=== PATIENT | female | born 1980 | race Caucasian/White ===

== ENCOUNTER → 2018-02-09 08:52 | Outpatient (BNVA) | payer MEDICARE, MEDICAID, SELFPAY | PROVIDERS: PCP Family Medicine; Visit Provider Psychiatry & Neurology Neurology | DX: G35 Multiple sclerosis (principal); G82.20 Paraplegia, unspecified | CPT/HCPCS: 99214 ==

== ENCOUNTER 2018-02-11 09:46 | Outpatient (REF) | payer MEDICARE, MEDICAID, SELFPAY ==
[2018-02-11 10:36] LABS: CREATININE 0.46 mg/dL (0.55-1.02)
== END 2018-02-11 10:06 ==
LOC: LBN 09:46
PROVIDERS: PCP Family Medicine; Visit Provider Family Medicine
DX: E11.9 Type 2 diabetes mellitus without complications (principal); G35 Multiple sclerosis; Z13.89 Encounter for screening for other disorder
CPT/HCPCS: 82565

== ENCOUNTER 2018-02-12 01:16 | Outpatient (CLI) | payer MEDICARE, MEDICAID, SELFPAY ==
[2018-02-12] MEDS: Omnipaque 350 MG/ML 100 ML BTL IJ (13:43)
--- NOTE | 2018-02-12 13:48 | DI.CT_ITS ---
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 Images were performed from above the sella through the level of the aortic arch after IV contrast. The previously noted right-sided neck abscess is no longer seen. Mild scarring is seen at the right submandibular region. Resection of the right side of the tongue is again noted. No recurrent mass is visible. No adenopathy is seen. The parotid, thyroid and left submandibular glands are unremarkable. The right submandibular gland appears to have been resected. No nodules are seen at the lung apices. Degenerative changes are noted in the spine. The sinuses appear clear. The orbits are unremarkable. IMPRESSION: Status post resection of right tongue mass. Postsurgical changes in the right side of the neck. No visible recurrent tumor or adenopathy.
== END 2018-02-12 01:36 ==
PROVIDERS: PCP Family Medicine; Visit Provider Otolaryngology
DX: Z85.810 Personal history of malignant neoplasm of tongue (principal); Z98.890 Other specified postprocedural states
CPT/HCPCS: 70491; J3490

== ENCOUNTER 2018-02-18 00:38 | Outpatient (CLI) | payer MEDICARE, MEDICAID, SELFPAY ==
--- NOTE | 2018-02-18 08:48 | DI.US_ITS ---
SYMPTOM/DIAGNOSIS: RT SUBMANDIBULAR ADENOPATHY, H/O TONGUE CA, MILD CELLULITIS , NEG CT, ? ABSCESS VS LYMPHADENOPATHY SOFT TISSUE NECK ULTRASOUND: Comparison is made with CT from 02/12/18. Sonographic evaluation of the right neck was performed. No cystic or solid masses are seen. No findings to suggest an abscess or adenopathy is appreciated. IMPRESSION: Negative ultrasound of the right neck.
[2018-02-18 10:15] LABS: Abs Immature Grans 0.01 k/cumm (0.0-0.09); Absolute Basophil Count 0.02 k/cumm (0.0-0.2); Absolute Eosinophil Count 0.11 k/cumm (0.0-0.7); Absolute Lymphocyte Count 0.51 k/cumm (1.2-3.4); Absolute Monocyte Count 0.24 k/cumm (0.11-0.7); Absolute Neutrophil Count 3.37 k/cumm (1.2-6.7); Basophils % 0.5; Eosinophils % 2.6; HCT 40.5 % (36.0-46.0); HGB 12.9 g/dL (12.0-15.5); Immature Grans % 0.2; Mean Corp. HGB Concentration 31.9 g/dL (32.0-36.0); Mean Corpuscular Hemoglobin 30.1 pg (27.0-33.0); Mean Corpuscular Volume 94.6 fL (80-95); Mean Platelet Volume 11.3 fL (8.0-11.0); Monocytes % 5.6; Neutrophils % 79.1; Platelet Count 189 x1000/uL (130-400); RBC 4.28 m/cumm (4.00-5.20); RBC Distribution Width 14.3 % (11.7-14.6); White Blood Cell Count 4.26 k/cumm (4.4-10.8)
== END 2018-02-18 00:58 ==
PROVIDERS: Nurse Practitioner Family; PCP Family Medicine; Visit Provider Family Medicine
DX: R59.0 Localized enlarged lymph nodes (principal); Z85.810 Personal history of malignant neoplasm of tongue; L03.90 Cellulitis, unspecified
CPT/HCPCS: 36415; 76536; 85025

== ENCOUNTER 2018-04-08 08:44 | Outpatient (REF) | payer MEDICARE, MEDICAID, SELFPAY ==
[2018-04-08 09:40] LABS: Hemoglobin A1C 5.2 % (4.5-6.2)
== END 2018-04-08 09:04 ==
LOC: LBN 08:44
PROVIDERS: PCP Family Medicine; Visit Provider Family Medicine
DX: E11.9 Type 2 diabetes mellitus without complications (principal)
CPT/HCPCS: 83036

== ENCOUNTER 2018-05-21 11:55 | Outpatient (REF) | payer MEDICARE, MEDICAID, SELFPAY ==
[2018-05-21 13:04] LABS: Absolute Basophil Count 0.01 k/cumm (0.0-0.2); Absolute Eosinophil Count 0.15 k/cumm (0.0-0.7); Absolute Lymphocyte Count 0.54 k/cumm (1.2-3.4); Absolute Monocyte Count 0.18 k/cumm (0.11-0.7); Absolute Neutrophil Count 2.57 k/cumm (1.2-6.7); Basophils % 0.3; Eosinophils % 4.3; HCT 37.3 % (36.0-46.0); Lymphocytes % 15.7; Mean Corp. HGB Concentration 32.2 g/dL (32.0-36.0); Mean Corpuscular Hemoglobin 30.5 pg (27.0-33.0); Mean Corpuscular Volume 94.7 fL (80-95); Mean Platelet Volume 12.3 fL (8.0-11.0); Monocytes % 5.2; Neutrophils % 74.5; Platelet Count 171 x1000/uL (130-400); RBC 3.94 m/cumm (4.00-5.20); RBC Distribution Width 14.3 % (11.7-14.6); White Blood Cell Count 3.45 k/cumm (4.4-10.8)
[2018-05-21 13:17] LABS: Iron 37 ug/dL (50-175); Total Iron Binding Capacity 185 ug/dL (250-450); Transferrin Sat 20 % (15-50)
[2018-05-21 13:44] LABS: Anion Gap 9.6 mmol/L (3-11); BUN 14 mg/dL (7-18); CO2 27.4 mmol/L (21.0-32.0); CREATININE 0.64 mg/dL (0.55-1.02); Calcium 9.1 mg/dL (8.5-10.1); Chloride 104 mmol/L (98-107); Ferritin 221 ng/mL (8-388); Folate 12.7 ng/mL (8.6-20.0); Glucose 140 mg/dL (70-100); Potassium 3.6 mmol/L (3.5-5.1); Sodium 141 mmol/L (136-145); TSH 1.11 uIU/mL (0.358-3.74); Vitamin B12 459 pg/mL (193-986)
[2018-05-31 11:14] LABS: Niacin (Vitamin B3), Plasma 2.38 ug/mL
== END 2018-05-21 12:15 ==
LOC: LBN 11:55
PROVIDERS: PCP Family Medicine; Visit Provider Family Medicine
DX: C02.9 Malignant neoplasm of tongue, unspecified (principal); D49.2 Neoplasm of unspecified behavior of bone, soft tissue, and skin; G35 Multiple sclerosis; E11.9 Type 2 diabetes mellitus without complications
CPT/HCPCS: 80048; 84591; 82607; 82728; 82746; 83540; 83550; 84443; 85025

== ENCOUNTER → 2018-06-30 12:49 | Outpatient (BNVA) | payer MEDICARE, MEDICAID, SELFPAY | PROVIDERS: PCP Family Medicine; Visit Provider Nurse Practitioner Gerontology | DX: N31.9 Neuromuscular dysfunction of bladder, unspecified (principal); G35 Multiple sclerosis; E11.9 Type 2 diabetes mellitus without complications | CPT/HCPCS: 99213 ==

== ENCOUNTER 2018-07-17 20:48 | Outpatient (REF) | payer MEDICARE, MEDICAID, SELFPAY | END 2018-07-17 21:08 | LOC: LBN 20:48 | PROVIDERS: PCP Family Medicine; Visit Provider Family Medicine | DX: R05 Cough (principal) | CPT/HCPCS: 87449 ==

== ENCOUNTER 2018-07-18 13:32 | Inpatient (IN) | payer MEDICARE, MEDICAID, SELFPAY ==
[2018-07-18] VITALS (63 sets, daily range): BP systolic 89–129; BP diastolic 46–76; PULSE 90–148; RESP 11–35; TEMP 36.9–38.6; O2SAT 91–96
--- NOTE | 2018-07-18 13:48 | DI.RAD_ITS ---
SYMPTOMS/DIAGNOSIS: FEVER, COUGH CHEST X-RAY, FRONTAL AND LATERAL VIEWS: Comparison is 11/24/17. The heart size and pulmonary vasculature are within normal limits. No infiltrates, effusions or pneumothoraces are identified. IMPRESSION: No acute pulmonary process.
--- NOTE | 2018-07-18 13:51 | ED.GENADUL_ITS ---
Discharge Plan Disposition Patient Disposition: [facility] INPATIENT Condition: Improving Discharge Details Chief Complaint: Fever Clinical Impression: Urinary tract infection Reason For Visit: [place] Primary Care Provider: Helen Leung ED Provider: Scottie Glass Home Meds and New Rx's Prescriptions: No Action Depo-Provera 400 MG/1 ML suspension 400 mg IM DIRECTED RF: 0 Female Catheter 1 EACH misc 1 ea Miscellaneous DAILY Qty: 30 RF: 0 baclofen 20 MG tablet 30 mg GT TID RF: 0 magnesium hydroxide [Milk of Magnesia] 400 MG/5 ML suspension 30 ml PO PRN RF: 0 Fleet Enema 133 ML enema 133 ml RC PRN PRN (Reason: Constipation) RF: 0 Kathy Protect 57 GM cream 57 gm Topical DAILY PRNRF: 0 albuterol sulfate 2.5 MG/3 ML solution for nebulization 2.5 mg UPD Q2H PRN PRNRF: 0 nystatin 15 GM powder Topical BID PRN PRNRF: 0 acetaminophen [Tylenol] 325 MG tablet 650 mg PO Q6H PRN PRNRF: 0 Lactobacillus acidophilus [Acidophilus] 1 EACH capsule 1 cap GT DAILY RF: 0 escitalopram oxalate 20 MG tablet 20 mg GT DAILY RF: 0 bisacodyl 10 MG suppository 10 mg NE DAILY PRN PRN (Reason: Constipation) RF: 0 Eliquis 2.5 MG tablet 1 tab GT BID RF: 0 clonazepam [Klonopin] 1 MG tablet 1 mg GT QPM RF: 0 polyethylene glycol 3350 17 GM powder in packet 17 gm GT DAILY RF: 0 Lyrica 75 MG capsule 75 mg GT BID RF: 0 cholestyramine (with sugar) [Questran] 4 GM powder in packet 1 packet GT Q8H PRN PRN (Reason: loose stools) RF: 0 ondansetron HCl 4 MG tablet 1 tab GT Q8H PRN (Reason: Nausea) RF: 0 acetaminophen 650 MG/20.3 ML solution 1,000 mg JT Q8H PRNRF: 0 diphenhydramine HCl 25 MG/10 ML elixir 25 mg PO HS PRN PRNRF: 0 Phenaseptic 180 ML aerosol,spray 2 spry Mucous Membrane QID PRN PRNQty: 1 RF: 0 levetiracetam 100 MG/ML solution 500 mg PO BID RF: 0 whxjohzcf-ucfedowhf-Se-mag-sim 119 ML mouthwash 10 ml PO Q6H PRN PRNRF: 0 cholecalciferol (vitamin D3) 400 UNIT/ML drops 800 unit PO DAILY RF: 0 Glucagon Emergency Kit (human) 1 MG kit 1 mg IJ Q15MIN PRNRF: 0 nystatin 500,000 UNITS/5 ML suspension 100,000 units PO QID RF: 0 dextrose [Glucose Gel] 38 GM gel 38 gm PO DIRECTED PRNRF: 0 morphine 10 MG/5 ML solution 5 mg PO Q6H PRN PRNRF: 0 lidocaine HCl [Lidocaine Viscous] 15 ML solution 10 ml PO TID PRNRF: 0 Jevity 1.5 Thomas 1,000 ML liquid 1,000 ml GT DIRECTED RF: 0 docusate sodium 100 MG/10 ML liquid 100 mg PO DAILY Qty: 1 RF: 0 Medical Decision Making Bedbound a 37-year-old female who is bedbound with severe MS, who lives at local rehabilitation facility was noted to have a cough and fever yesterday that worsened today with a temperature of 105. She is reported to have a negative flu swab yesterday. She was given Tylenol and referred to the ED. She complains primarily of cough. She is febrile with temperature 38.6, tachycardic with a pulse of 148, normotensive with a pressure 129/71. She meets criteria for SIRS, and patient given antipyretics and fluids, referred for laboratory testing including lactic acid, blood cultures, urine, as well as chest x-ray and influenza screening. Patient has not elevated lactic acid of 2.0. Her urinalysis is concentrated with positive nitrates and leukoesterase. CBC is reassuring with a white count of 5, hematocrit 39, BUN is 10 creatinine 0.7. CXR - no acute findings. Influenza is negative. Patient has a presentation consistent with acute urinary tract infection. Her pulse is improving from 138 to low 100's. She will benefit from admission for parenteral antibiotics. Lab Data Lab results reviewed: Yes I reviewed the patient's lab results. Laboratory Results - last 24 hr 07/18/18 07/18/18 07/18/18 13:45 13:55 13:55 WBC RBC Hgb Hct MCV MCH MCHC RDW Plt Count MPV Immature Gran % Neutrophils % Lymphocytes % Monocytes % Eosinophils % Basophils % Absolute Neutrophils Absolute Lymphocytes Absolute Monocytes Absolute Eosinophils Absolute Basophils PT INR Sodium 139 Potassium 3.6 Chloride 102 Carbon Dioxide 26.9 Anion Gap 10.1 BUN 10 Creatinine 0.70 Estimated GFR/1.73 m2 >= 60.00 Glucose 122 H Lactate 2.0 H Calcium 9.1 Total Bilirubin 0.3 AST 20 ALT 31 Alkaline Phosphatase 134 H Total Protein 8.5 H Albumin 3.0 L Urine Color Yellow Urine Clarity Cloudy Urine pH 5.5 Ur Specific [place] >= 1.030 H Urine Protein 100 H Urine Ketones Negative Urine Blood Small H Urine Nitrite Positive H Urine Bilirubin Negative Urine Urobilinogen 0.2 Ur Leukocyte Esterase Small H Urine RBC Not Applicable Urine WBC >50 Ur Epithelial Cells Not Applicable Urine Crystals Not Applicable Urine Bacteria Moderate Urine Mucus Not Applicable Ur Culture Indicated? Yes Urine Glucose Negative 07/18/18 07/18/18 13:55 13:55 WBC 5.77 RBC 4.17 Hgb 12.5 Hct 39.0 MCV 93.5 MCH 30.0 MCHC 32.1 RDW 15.6 H Plt Count 198 MPV 11.4 H Immature Gran % 0.2 Neutrophils % 89.7 Lymphocytes % 4.9 Monocytes % 3.8 Eosinophils % 1.2 Basophils % 0.2 Absolute Neutrophils 5.18 Absolute Lymphocytes 0.28 L Absolute Monocytes 0.22 Absolute Eosinophils 0.07 Absolute Basophils 0.01 PT 11.3 H INR 1.1 Sodium Potassium Chloride Carbon Dioxide Anion Gap BUN Creatinine Estimated GFR/1.73 m2 Glucose Lactate Calcium Total Bilirubin AST ALT Alkaline Phosphatase Total Protein Albumin Urine Color Urine Clarity Urine pH Ur Specific [place] Urine Protein Urine Ketones Urine Blood Urine Nitrite Urine Bilirubin Urine Urobilinogen Ur Leukocyte Esterase Urine RBC Urine WBC Ur Epithelial Cells Urine Crystals Urine Bacteria Urine Mucus Ur Culture Indicated? Urine Glucose ECG Data Attestation: I personally reviewed and interpreted this ECG (s) as follows: Interpretation: Regular sinus tachycardia with a rate of 120. There is no ST segment elevation, the QRS is narrow. HPI General Mode of arrival: EMS . Date/Time Provider Initiated Documentation: 07/18/18 13:40 . Limitations to Documentation: no limitations . Information obtained by: patient, EMS and RN notes reviewed . History of Present Illness 37 year old F presents to the emergency department with the chief complaint of Fever and cough, day 2, report of negative influenza yesterday, described as moderate, Quality is described as dull, and is localized to the chest. Patient reports no radiation. Patient started experiencing this day(s) and it has been intermittent. No relieving factors improve symptom(s), No exacerbating factors reported . Patient notes fever/chills. Patient did receive the following treatments prior to arrival, other (Tylenol) Related Data Home Medications Medication Instructions Recorded Confirmed Depo-Provera 400 mg IM DIRECTED vial 08/19/12 06/30/18 Female Catheter #30 ea 01/25/13 06/30/18 albuterol sulfate 2.5 mg UPD Q2H PRN PRN vial 03/19/17 07/18/18 nystatin 0 gm TOPICAL BID PRN PRN jar 03/19/17 06/30/18 Kathy Protect 57 gm TOPICAL DAILY PRN 04/20/17 06/30/18 Fleet Enema 133 ml RC PRN PRN enema 04/20/17 06/30/18 baclofen 30 mg GT TID tab-cap 04/20/17 06/30/18 magnesium hydroxide [Milk of 30 ml PO PRN ml 04/20/17 06/30/18 Magnesia] Eliquis 1 tab GT BID 11/23/17 06/30/18 Lactobacillus acidophilus 1 cap GT DAILY 11/23/17 06/30/18 [Acidophilus] Lyrica 75 mg GT BID 11/23/17 06/30/18 acetaminophen [Tylenol] 650 mg PO Q6H PRN PRN 11/23/17 06/30/18 bisacodyl 10 mg NE DAILY PRN PRN 11/23/17 06/30/18 cholestyramine (with sugar) 1 packet GT Q8H PRN PRN 11/23/17 06/30/18 [Questran] clonazepam [Klonopin] 1 mg GT QPM 11/23/17 06/30/18 escitalopram oxalate 20 mg GT DAILY 11/23/17 06/30/18 ondansetron HCl 1 tab GT Q8H PRN 11/23/17 06/30/18 polyethylene glycol 3350 17 gm GT DAILY 11/23/17 06/30/18 acetaminophen 1,000 mg JT Q8H PRN cup 11/30/17 06/30/18 Phenaseptic 2 spry MUCOUS MEMBRANE QID PRN PRN 12/01/17 06/30/18 #1 btl cholecalciferol (vitamin D3) 800 unit PO DAILY btl 12/01/17 06/30/18 diphenhydramine HCl 25 mg PO HS PRN PRN btl 12/01/17 06/30/18 levetiracetam 500 mg PO BID ml 12/01/17 06/30/18 mmfrtyite-cbtkibcam-Ur-mag-sim 10 ml PO Q6H PRN PRN btl 12/01/17 06/30/18 Glucagon Emergency Kit (human) 1 mg IJ Q15MIN PRN 12/27/17 06/30/18 Jevity 1.5 Thomas 1,000 ml GT DIRECTED 12/27/17 06/30/18 dextrose [Glucose Gel] 38 gm PO DIRECTED PRN 12/27/17 06/30/18 docusate sodium 100 mg PO DAILY #1 btl 12/27/17 06/30/18 lidocaine HCl [Lidocaine Viscous] 10 ml PO TID PRN 12/27/17 06/30/18 morphine 5 mg PO Q6H PRN PRN 12/27/17 06/30/18 nystatin 100,000 units PO QID 12/27/17 06/30/18 Previous Rx's Medication Instructions Recorded albuterol sulfate 2.5 mg UPD Q2H PRN PRN vial 03/19/17 nystatin 0 gm TOPICAL BID PRN PRN jar 03/19/17 acetaminophen 1,000 mg JT Q8H PRN cup 11/30/17 Phenaseptic 2 spry MUCOUS MEMBRANE QID PRN PRN 12/01/17 #1 btl cholecalciferol (vitamin D3) 800 unit PO DAILY btl 12/01/17 diphenhydramine HCl 25 mg PO HS PRN PRN btl 12/01/17 levetiracetam 500 mg PO BID ml 12/01/17 ewfhgmsvl-xofeapeww-Rq-mag-sim 10 ml PO Q6H PRN PRN btl 12/01/17 docusate sodium 100 mg PO DAILY #1 btl 12/27/17 Allergies Allergy/AdvReac Type Severity Reaction Status Date / Time amoxicillin Allergy Severe Hives Unverified 07/18/18 16:43 venom-honey bee Allergy Severe Anaphylaxsi Unverified 02/10/19 16:43 s cod liver oil Allergy Intermediate Verified 07/18/18 16:43 Gadolinium-Containing Allergy Intermediate Hives Unverified 07/18/18 16:43 Contrast Medi lactose Allergy Mild Verified 07/18/18 16:43 cortisone Allergy Unverified 07/18/18 16:43 interferon beta-1b Allergy Unverified 07/18/18 16:43 [From Betaseron] methylprednisolone Allergy Unverified 07/18/18 16:43 [From Solu-Medrol] metformin AdvReac Intermediate RASH, Unverified 07/18/18 16:43 DIARRHEA gabapentin AdvReac Mild LE edema Unverified 07/18/18 16:43 General Stated Complaint: Fever BRENDAN: 2 Review of Systems Review of Systems Patient reports chronic contractures, bedbound, left buttock wound with dressing. 8 systems reviewed and otherwise negative. 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) Hemochromatosis (Chronic) DVT (deep venous thrombosis) (Chronic) MS (multiple sclerosis) Depression Type 2 diabetes mellitus Neurogenic bladder Catatonia (Resolved) Family History Mother Multiple sclerosis Social History housing: [facility] marital status details: currently incarcerated lives independently: No number of children: 2 current occupational status: disabled Smoking and Tabacco status: Never alcohol intake: never substance use type: does not use History History 2 Para Hx # Term Pregnancies 2 Multiple births Hx # Pregnancies Ectopic pregnancies AB induced Hx Number of Living Children AB spontaneous Exam Narrative Exam Narrative: GEN: awake, alert, oriented 3. Pleasant, well groomed, interactive. HEAD: Normocephalic, atraumatic ENT: Mucous membranes dry, oropharynx unremarkable, External ear exam unremarkable EYES: PERRL, EOMI NECK: Full ROM, no BYRON, no menigismus CHEST/RESP: Nontender, clear to auscultation bilateral, no wheeze/rhonchi/rales CARDIOVASCULAR: Regular and tachycardia, no murmur, rub margareth. 2+ Rad pulse bilateral ABDOMEN: Soft, nontender, no mass. +Bowel sounds EXT: Contractures present right greater than left lower extremity. Left buttock with small pressure ulcer that is dressed. Neuro: Grossly normal neurologic exam, conversant, interactive. Psych: Speech fluent, thoughts congruent, affect normal Course Vital Signs Temperature 38.6 C H 07/18/18 13:39 Pulse 148 H 07/18/18 13:39 Respiratory Rate 28 H 07/18/18 13:39 Blood Pressure 129/71 07/18/18 13:39 Pulse Oximetry 92 L 07/18/18 13:39 Temperature 38.6 C H 07/18/18 13:39 Temperature Source Oral 07/18/18 13:39 Pulse 148 H 07/18/18 13:39 Respiratory Rate 28 H 07/18/18 13:39 Blood Pressure 129/71 07/18/18 13:39 Blood Pressure Position Supine 07/18/18 13:39 Pulse Oximetry 92 L 07/18/18 13:39 Oxygen Delivery Method Room Air 07/18/18 13:39 Oxygen Flow Rate 0 07/18/18 13:39
[2018-07-18 14:06] LABS: Abs Immature Grans 0.01 k/cumm (0.0-0.09); Absolute Basophil Count 0.01 k/cumm (0.0-0.2); Absolute Eosinophil Count 0.07 k/cumm (0.0-0.7); Absolute Lymphocyte Count 0.28 k/cumm (1.2-3.4); Absolute Monocyte Count 0.22 k/cumm (0.11-0.7); Absolute Neutrophil Count 5.18 k/cumm (1.2-6.7); Basophils % 0.2; Eosinophils % 1.2; HGB 12.5 g/dL (12.0-15.5); Immature Grans % 0.2; Lymphocytes % 4.9; Mean Corp. HGB Concentration 32.1 g/dL (32.0-36.0); Mean Corpuscular Volume 93.5 fL (80-95); Mean Platelet Volume 11.4 fL (8.0-11.0); Monocytes % 3.8; Neutrophils % 89.7; Platelet Count 198 x1000/uL (130-400); RBC 4.17 m/cumm (4.00-5.20); RBC Distribution Width 15.6 % (11.7-14.6); White Blood Cell Count 5.77 k/cumm (4.4-10.8)
[2018-07-18] MEDS: Lactated Ringers 1,000 ML 1000 ML IV ×2 (14:06→14:56)
[2018-07-18] MEDS: Ibuprofen 600 MG TAB PO (14:07)
[2018-07-18 14:16] LABS: INR 1.1 (0.9-1.1); Prothrombin Time 11.3 sec (9.3-11.0)
[2018-07-18 14:19] LABS: ALT 31 U/L (12-78); AST 20 U/L (15-37); Alkaline Phosphatase 134 U/L (46-116); Anion Gap 10.1 mmol/L (3-11); BUN 10 mg/dL (7-18); Bilirubin, Total 0.3 mg/dL (0.2-1.0); CO2 26.9 mmol/L (21.0-32.0); Calcium 9.1 mg/dL (8.5-10.1); Chloride 102 mmol/L (98-107); Glucose 122 mg/dL (70-100); Potassium 3.6 mmol/L (3.5-5.1); Sodium 139 mmol/L (136-145); Total Protein 8.5 g/dL (6.4-8.2)
[2018-07-18 14:26] LABS: Bilirubin Negative (Negative); Blood Small (Negative); Clarity Cloudy; Glucose Negative (Negative); Ketones Negative (Negative); Leukocyte Esterase Small (Negative); Nitrite Positive (Negative); Specific Gravity >= 1.030 (1.005-1.025); Urobilinogen 0.2 EU/dL (Up TO 0.2); pH 5.5 (5-8)
[2018-07-18 14:33] LABS: Bacteria Moderate HPF (Negative); C & S Indicated? Yes; WBC >50 HPF (0-5)
--- NOTE | 2018-07-18 15:04 | DI.VRAD_ITS ---
EXAM: XR Chest, 2 Views EXAM DATE/TIME: 07/18/2018 1:49 PM CLINICAL HISTORY: 37 years old, female; Signs and symptoms; Other: Fever, cough TECHNIQUE: XR of the chest, 2 views. COMPARISON: CR PORTABLE AP CHEST, POST LINE 11/24/2017 12:51 PM FINDINGS: The lung sorenson are clear bilaterally. No focal pulmonary consolidation is present. The cardiac silhouette is within normal limits. The costophrenic angles are sharp. The bony structures appear unremarkable. IMPRESSION: No evidence of acute cardiopulmonary disease. Dictated and Authenticated by: Juan Herrera MD. Ordering:ZURI Rubin MD
[2018-07-18] MEDS: Normal Saline 1,000 ML 150 ML IV (16:30)
[2018-07-18] MEDS: CIPROFLOXACIN 400 MG/200 ML BAG 200 MG IVPB (16:31)
--- NOTE | 2018-07-18 17:46 | W.PM.HP.N ---
Date of service: 07/18/18 Time of Service: 17:46 Assessment and Plan (1) SIRS (systemic inflammatory response syndrome): Start date: 07/18/18 Current visit: Yes Status: Acute Patient had fever up to 105 with change in mental status and tachycardia which responded to IV hydration and IV Cipro oxygen or probable UTI as a source of her symptoms with probable E. coli. Follow-up urine cultures and continue IV Cipro for now. Also got the IV hydration overnight. We will avoid Melendez catheter because of possible UTI. She will have an adult diaper. (2) UTI (urinary tract infection): Start date: 07/15/18 Current visit: Yes Status: Acute Patient urine was positive and urine culture is pending. We will continue IV Cipro until urine culture and sensitivities are complete. Avoid Melendez catheter even though she does have neurogenic bladder. The adult diapers. She is at risk for UTIs with neurogenic bladder and incontinence with the chronic adult diaper. (3) Neurogenic bladder: Current visit: Yes Status: Chronic This is associate with her MS and put her at risk for UTIs with probable poor bladder emptying. He does wear an adult diaper. There is no mention that she self catheterizes or that she is catheterized at the [facility]. We will not place a Melendez catheter unless there is a question of retention which is [facility] UTI. Bladder scans can be done. (4) MS (multiple sclerosis): Current visit: Yes Status: Chronic This is a progressive disease this patient was 13 and makes the patient at high risk for infections with Christy lift to wheelchair for activity and chronic adult diaper with neurogenic bladder by history. Patient has improved overall and function at the [facility] with review of history. She is able to feed herself and eat orally rather than have a PEG tube at this time. History of Present Illness Chief Complaint: UTI with SIRS Narrative: This is a 37-year-old lady who resides at local [facility] with MS which is fairly debilitating and began when she was 13 years old with fixed contractures of her lower extremities and weakness in her upper extremities requiring a Christy lift to go to a wheelchair during the day. She states that she began to have difficulty at the end of last week and Thursday but began to have fever on Thursday being brought to the emergency room on the day of admission with tachycardia, fever up to 105 and some mild confusion though her white count was not elevated. She did have a urine which was positive for infection and was started on IV Cipro in the ED. Her tachycardia responded to IV fluid resuscitation and presently she is on IV normal saline at 150 cc an hour and has blood pressure slightly low with a systolic just below 90. She states that she runs a low blood pressure as her usual. She is more clear presently less confused though she feels she may have lost a day over the weekend. She did have a cough with her symptoms and she had a flu screen which was negative with a chest x-ray unrevealing in the ED. She presently is closer to her baseline though she still feels slightly dry. She wears adult diaper. We will try to avoid a Melendez catheter because of the UTI. She will require IV fluid resuscitation with a soft pressure and continue IV Cipro for now which can be converted to oral if she stabilizes overnight. Review of Systems Review of Systems 13 point review of systems unrevealing for new complaints otherwise stable or negative and as per HPI. She has weakness over her lower body more than upper body and has dysarthria with speech which is chronic. She did have a feeding tube at one time which is been removed with patient able to swallow presently. He also had a tracheostomy at one time when she aspirated with her MS scars over her chest and that was temporary. 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) Hemochromatosis (Chronic) DVT (deep venous thrombosis) (Chronic) MS (multiple sclerosis) (Chronic) Depression Type 2 diabetes mellitus Neurogenic bladder (Chronic) Catatonia (Resolved) Surgical History History of skin graft (Resolved) History of tracheostomy (Resolved) S/P percutaneous endoscopic gastrostomy (PEG) tube placement (Resolved) Family History Mother Multiple sclerosis Social History housing: [facility] marital status details: currently incarcerated lives independently: No number of children: 2 current occupational status: disabled Smoking and Tabacco status: Never alcohol intake: never substance use type: does not use History History 2 Para Hx # Term Pregnancies 2 Multiple births Hx # Pregnancies Ectopic pregnancies AB induced Hx Number of Living Children AB spontaneous Meds Home Medications Medication Instructions Recorded Confirmed Type Depo-Provera 400 mg IM DIRECTED vial 08/19/12 07/18/18 History albuterol sulfate 2.5 mg UPD Q2H PRN PRN vial 03/19/17 07/18/18 Rx baclofen 1.5 tab PO TID tab-cap 04/20/17 07/18/18 History magnesium hydroxide [Milk of 30 ml PO PRN ml 04/20/17 07/18/18 History Magnesia] Lyrica 75 mg PO BID 11/23/17 07/18/18 History acetaminophen [Tylenol] 650 mg PO Q6H PRN PRN 11/23/17 07/18/18 History bisacodyl 10 mg IA DAILY PRN PRN 11/23/17 07/18/18 History cholestyramine (with sugar) 1 packet PO Q8H PRN PRN 11/23/17 07/18/18 History [Questran] clonazepam [Klonopin] 1 mg PO QPM 11/23/17 07/18/18 History escitalopram oxalate 20 mg PO DAILY 11/23/17 07/18/18 History ondansetron HCl 1 tab PO Q8H PRN 11/23/17 07/18/18 History polyethylene glycol 3350 17 gm GT DAILY 11/23/17 07/18/18 History cholecalciferol (vitamin D3) 800 unit PO DAILY btl 12/01/17 07/18/18 Rx Glucagon Emergency Kit (human) 1 mg IJ Q15MIN PRN 12/27/17 07/18/18 History apixaban 2.5 mg PO BID 07/18/18 07/18/18 History biotin 5 ml PO PRN PRN 07/18/18 07/18/18 History miconazole nitrate 1 appful TOPICAL PRN PRN 07/18/18 07/18/18 History Allergies Allergy/AdvReac Type Severity Reaction Status Date / Time amoxicillin Allergy Severe Hives Unverified 07/18/18 17:58 venom-honey bee Allergy Severe Anaphylaxsi Unverified 07/18/18 17:58 s cod liver oil Allergy Intermediate Verified 07/18/18 17:58 Gadolinium-Containing Allergy Intermediate Hives Unverified 07/18/18 17:58 Contrast Medi lactose Allergy Mild Verified 07/18/18 17:58 cortisone Allergy Unverified 07/18/18 17:58 interferon beta-1b Allergy Unverified 07/18/18 17:58 [From Betaseron] methylprednisolone Allergy Unverified 07/18/18 17:58 [From Solu-Medrol] metformin AdvReac Intermediate RASH, Unverified 07/18/18 17:58 DIARRHEA gabapentin AdvReac Mild LE edema Unverified 07/18/18 17:58 Exam Narrative Exam Narrative: General: Patient appears older than stated age and is able to converse with some dysarthria and difficulty being understood at times, she appears to be alert and oriented x3 presently though she did lose a day when she had high fever, she is in no acute distress. She is well-developed and slightly obese with muscle wasting from disuse with her advanced MS. HEENT: Normocephalic, oropharynx with dry oral mucosa and poor dentition with discoloration and some missing teeth, tongue has no gross masses and cannot be protruded past her teeth, eyes with pupils slightly dilated but equal and reactive to light symmetrically, extraocular movement intact, sclera anicteric, slight drooping of left upper eyelid and external ears normal. Neck: Supple without JVD. Lungs: Clear to auscultation and percussion. The upper mid chest has scars from her previous tracheostomy. Heart: Regular rate and rhythm with no murmurs gallops. Breast: Exam deferred. Abdomen: Moderately obese contour, soft and nontender with no palpable hepatosplenomegaly. Sounds positive in all quadrants. Genitalia and rectal exam: Deferred the patient wears adult diaper Extremities: Nonpitting edema lower extremities with the left extremity extended with extension contracture at the ankle and foot and the right extremity with flexion contracture,cyanosis or clubbing. Capillary refill is fair. Upper extremities with normal pulses and no edema. There are scars over the right ventral forearm from her harvest site for her tongue surgery and a large scar over her right thigh from the skin harvest for the skin graft to repair the right forearm Skin: Pale, warm and dry. Neuro: Cranial nerves II through XII grossly intact except for left eye droop and dysarthria which may be more from weakness from her MS, generalized weakness with contractures and no movement of her lower extremities and 3 out of 5 strength in her upper extremities. Psych/mental status: Patient appears to have intact long-term and short-term memory with normal mood but flattened affect with this mostly being secondary to her weakness from MS. Good eye contact with normal variation of affect. Results Labs : 07/18/18 13:55 07/18/18 13:55 Laboratory Results - last 24 hr 07/18/18 07/18/18 07/18/18 13:45 13:55 13:55 WBC RBC Hgb Hct MCV MCH MCHC RDW Plt Count MPV Immature Gran % Neutrophils % Lymphocytes % Monocytes % Eosinophils % Basophils % Absolute Neutrophils Absolute Lymphocytes Absolute Monocytes Absolute Eosinophils Absolute Basophils PT INR Sodium 139 Potassium 3.6 Chloride 102 Carbon Dioxide 26.9 Anion Gap 10.1 BUN 10 Creatinine 0.70 Estimated GFR/1.73 m2 >= 60.00 Glucose 122 H Lactate 2.0 H Calcium 9.1 Total Bilirubin 0.3 AST 20 ALT 31 Alkaline Phosphatase 134 H Total Protein 8.5 H Albumin 3.0 L Urine Color Yellow Urine Clarity Cloudy Urine pH 5.5 Ur Specific [place] >= 1.030 H Urine Protein 100 H Urine Ketones Negative Urine Blood Small H Urine Nitrite Positive H Urine Bilirubin Negative Urine Urobilinogen 0.2 Ur Leukocyte Esterase Small H Urine RBC Not Applicable Urine WBC >50 Ur Epithelial Cells Not Applicable Urine Crystals Not Applicable Urine Bacteria Moderate Urine Mucus Not Applicable Ur Culture Indicated? Yes Urine Glucose Negative 07/18/18 07/18/18 13:55 13:55 WBC 5.77 RBC 4.17 Hgb 12.5 Hct 39.0 MCV 93.5 MCH 30.0 MCHC 32.1 RDW 15.6 H Plt Count 198 MPV 11.4 H Immature Gran % 0.2 Neutrophils % 89.7 Lymphocytes % 4.9 Monocytes % 3.8 Eosinophils % 1.2 Basophils % 0.2 Absolute Neutrophils 5.18 Absolute Lymphocytes 0.28 L Absolute Monocytes 0.22 Absolute Eosinophils 0.07 Absolute Basophils 0.01 PT 11.3 H INR 1.1 Sodium Potassium Chloride Carbon Dioxide Anion Gap BUN Creatinine Estimated GFR/1.73 m2 Glucose Lactate Calcium Total Bilirubin AST ALT Alkaline Phosphatase Total Protein Albumin Urine Color Urine Clarity Urine pH Ur Specific [place] Urine Protein Urine Ketones Urine Blood Urine Nitrite Urine Bilirubin Urine Urobilinogen Ur Leukocyte Esterase Urine RBC Urine WBC Ur Epithelial Cells Urine Crystals Urine Bacteria Urine Mucus Ur Culture Indicated? Urine Glucose Last Vital Signs Temp 37.2 C 07/18/18 16:01 Pulse 98 H 07/18/18 16:16 Resp 16 07/18/18 16:20 BP 114/65 07/18/18 16:16 Pulse Ox 94 L 07/18/18 16:20
[2018-07-18 20:19] LABS: Magnesium 1.6 mg/dL (1.8-2.4)
[2018-07-18] MEDS: Apixaban 2.5 MG TAB PO (20:41)
[2018-07-18] MEDS: clonazePAM 1 MG TAB PO (20:41)
[2018-07-18] MEDS: Baclofen 10 MG TAB 30 MG PO (20:41)
[2018-07-18] MEDS: Pregabalin 25 MG CAP 75 MG PO (22:21)
[2018-07-19] VITALS (15 sets, daily range): BP systolic 82–114; BP diastolic 48–69; PULSE 82–112; RESP 16–110; TEMP 36.9–39.1; O2SAT 92–99
[2018-07-19] MEDS: Normal Saline 1,000 ML 150 ML IV ×2 (00:14→07:28)
[2018-07-19] MEDS: Acetaminophen 325 MG TAB 650 MG PO ×3 (04:43→20:08)
[2018-07-19] MEDS: CIPROFLOXACIN 400 MG/200 ML BAG 200 MG IVPB (06:02)
[2018-07-19] MEDS: Baclofen 10 MG TAB 30 MG PO ×3 (07:25→19:58)
[2018-07-19] MEDS: Apixaban 2.5 MG TAB PO ×2 (07:26→19:59)
[2018-07-19 07:33] LABS: HCT 31.5 % (36.0-46.0); HGB 9.8 g/dL (12.0-15.5); Mean Corp. HGB Concentration 31.1 g/dL (32.0-36.0); Mean Corpuscular Hemoglobin 29.6 pg (27.0-33.0); Mean Corpuscular Volume 95.2 fL (80-95); Mean Platelet Volume 11.5 fL (8.0-11.0); Platelet Count 135 x1000/uL (130-400); RBC 3.31 m/cumm (4.00-5.20); RBC Distribution Width 15.7 % (11.7-14.6); White Blood Cell Count 3.12 k/cumm (4.4-10.8)
[2018-07-19] MEDS: Escitalopram 20 MG TAB PO (07:38)
[2018-07-19 07:51] LABS: ALT 24 U/L (12-78); AST 32 U/L (15-37); Albumin 2.1 g/dL (3.4-5.0); Alkaline Phosphatase 93 U/L (46-116); Anion Gap 6.2 mmol/L (3-11); BUN 7 mg/dL (7-18); Bilirubin, Total 0.3 mg/dL (0.2-1.0); CO2 25.8 mmol/L (21.0-32.0); CREATININE 0.64 mg/dL (0.55-1.02); Calcium 8.1 mg/dL (8.5-10.1); Chloride 108 mmol/L (98-107); Glucose 121 mg/dL (70-100); Potassium 3.4 mmol/L (3.5-5.1); Sodium 140 mmol/L (136-145); Total Protein 6.3 g/dL (6.4-8.2)
--- NOTE | 2018-07-19 07:52 | PDOC.CMIN ---
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 Hemochromatosis (Chronic). DVT (deep venous thrombosis) (Chronic). MS (multiple sclerosis) (Chronic). Depression. Type 2 diabetes mellitus. Neurogenic bladder (Chronic). Catatonia (Resolved). History of skin graft (Resolved). History of tracheostomy (Resolved). S/P percutaneous endoscopic gastrostomy (PEG) tube placement (Resolved) PREVIOUS FUNCTIONAL STATUS/SOCIAL/FAMILY SUPPORTS:: Ethel is a resident of [facility]. She previously resided with her and children locally. Her is currently incarcerated and her children are residing with family members locally. Ethel's Aunt Jacy is a support to her in the community. CURRENT FUNCTIONAL STATUS:: Currently Ethel is lying in bed, pleasant and receptive to discussion. ADVANCE DIRECTIVES:: Guardianship on file - Jacy Townsend is guardian Has patient been provided with information about the portal?: Yes Did the patient sign up for the portal?: No CODE STATUS:: Full Code INSURANCE COVERAGE / FINANCIAL ISSUES:: Medicare, Medicaid CURRENT HOME/COMMUNITY SERVICES/EQUIPMENT:: Currently Ethel has all needs and medical equipment needs met through [facility]. She has a motorized w/c that she uses frequently. PRIMARY CARE PHYSICIAN:: Dr. Leung POTENTIAL DISCHARGE NEEDS:: Return to [facility]. Transport - W/C van vs. ambulance PATIENT/FAMILY EDUCATION NEEDS:: Review DC instructions, any limitations, and ongoing DC planning discussion. Discuss 'Ask Me Three' ANTICIPATED BARRIERS TO DISCHARGE:: None identified at this time. TRANSPORTATION:: Via W/C van vs. ambulance depending on presentation PLAN:: Ethel to return to [facility] once medically cleared. She will transport via [facility] vs. ambulance.
[2018-07-19] MEDS: Pregabalin 25 MG CAP 75 MG PO ×2 (08:22→19:58)
--- NOTE | 2018-07-19 09:52 | INITIAL_ITS ---
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 Hemochromatosis (Chronic). DVT (deep venous thrombosis) (Chronic). MS (multiple sclerosis) (Chronic). Depression. Type 2 diabetes mellitus. Neurogenic bladder (Chronic). Catatonia (Resolved). History of skin graft (Resolved). History of tracheostomy (Resolved). S/P percutaneous endoscopic gastrostomy (PEG) tube placement (Resolved) PREVIOUS FUNCTIONAL STATUS/SOCIAL/FAMILY SUPPORTS:: Ethel is a resident of [facility]. She previously resided with her and children locally. Her is currently incarcerated and her children are residing with family members locally. Ethel's Aunt Jacy is a support to her in the community. CURRENT FUNCTIONAL STATUS:: Currently Ethel is lying in bed, pleasant and receptive to discussion. ADVANCE DIRECTIVES:: Guardianship on file - Jacy Townsend is guardian Has patient been provided with information about the portal?: Yes Did the patient sign up for the portal?: No CODE STATUS:: Full Code INSURANCE COVERAGE / FINANCIAL ISSUES:: Medicare, Medicaid CURRENT HOME/COMMUNITY SERVICES/EQUIPMENT:: Currently Ethel has all needs and medical equipment needs met through [facility]. She has a motorized w/c that she uses frequently. PRIMARY CARE PHYSICIAN:: Dr. Leung POTENTIAL DISCHARGE NEEDS:: Return to [facility]. Transport - W/C van vs. ambulance PATIENT/FAMILY EDUCATION NEEDS:: Review DC instructions, any limitations, and ongoing DC planning discussion. Discuss 'Ask Me Three' ANTICIPATED BARRIERS TO DISCHARGE:: None identified at this time. TRANSPORTATION:: Via W/C van vs. ambulance depending on presentation PLAN:: Ethel to return to [facility] once medically cleared. She will transport via [facility] vs. ambulance.
[2018-07-19] MEDS: MAGNESIUM SULFATE 2 GM/50 ML BAG IVPB (09:59)
[2018-07-19] MEDS: Potassium Chloride 20 MEQ TABCR 40 MEQ PO (10:00)
[2018-07-19] MEDS: MEROPENEM 1 GM in Normal Saline 100 ML IVPB ×2 (12:12→17:49)
[2018-07-19] MEDS: Normal Saline Flush 10 ML SYR IVP (12:13)
[2018-07-19] MEDS: VANCOMYCIN 1,000 MG in Normal Saline 250 ML 100 MG IV (13:02)
--- NOTE | 2018-07-19 14:01 | CHAPLAIN ---
Ethel and I know each other from her previous admissions. Today she seemed happy to talk about her daughters. One is taking classes at [employer] in [place] and the other is a senior at [employer] and will be graduating this spring. 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 Ethel said the girls visit her and talked about them being beautiful inside and out. She shared some stories of when they were babies.
[2018-07-19] MEDS: Potassium Chloride 20 MEQ TABCR PO (15:27)
--- NOTE | 2018-07-19 15:42 | W.PM.PROGNOT ---
Date of Service Date of service: 07/19/18 Time of Service: 15:42 Assessment and Plan (1) Sepsis: Current visit: Yes Status: Acute Based on initial presentation of fevers, tachycardia, altered mental status, and known urinary source with elevated Lactic Acid. Urine Culture growing E.Coli, sensitivities not yet available. Will alter treatment to include treatment of UTI with concurrent sepsis. Cipro discontinued in favor of Vancomycin and Meropenem, narrowed to Meropenem alone with identification of E.Coli on culture. Continue but change to aggressive IVFs given hypotension, with low threshold for ICU transfer. Monitor carefully. Antipyretics on an as needed basis. (2) UTI (urinary tract infection): Current visit: Yes Status: Acute Treatment as above. (3) Neurogenic bladder: Current visit: No Status: Acute Noted, with previously reported recurrent UTIs. Review of culture results with prior evidence of Citrobacter freundii, Klebsiella, and Pseudomonas - all essentially pansensitive. Currently with growth of E. coli as above. Will ensure post void bladder scan. Ms. Salamanca follows with urology chronically. (4) Type 2 diabetes mellitus with hyperglycemia: Current visit: No Status: Acute Unsure of current treatment modality, and whether the patient is simply diet controlled. No evidence of insulin or other agents with review of home med list. Morning blood sugar appears minimally elevated only. Will monitor with twice daily Accu-Cheks, and initiate sliding scale coverage if needed. 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 Patient has a history of former resection and radiation therapy, followed by reconstructive surgery. (6) MS (multiple sclerosis): Current visit: Yes Status: Chronic Noted. (7) DVT (deep venous thrombosis): Current visit: No Status: Chronic History of DVT, currently maintained on prophylactic doses of apixaban. Will ensure PPI therapy as well, especially when acutely ill. Subjective Interval history since last seen: Pleasant but unfortunate 37 year old woman with a prior medical history significant for progressive MS with a neurogenic bladder, and prior recurrent UTIs, admitted from [facility] Emergency Department on 07/18 with a diagnosis of UTI. Ms. Salamanca has a past medical history significant for MS initially diagnosed at 13 years of age. 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 She has a history of DVT in the past as well, currently on prophylactic doses of apixaban. Her other history includes DM, and carcinoma of the tongue s/p resection, radiation, and reconstructive surgery. Patient initially presented to the ED with reported fevers. Her initial bouts of fever had begun 3 or 4 days prior to her admission, and upon evaluation she was found to be febrile here as well. She was also noted to be tachycardic, with a with an altered mental status from baseline, as well as evidence of an elevation in lactate and low blood pressure. Her urinalysis revealed evidence of likely infection. At that time she was referred for admission for further evaluation and treatment. This morning the patient reports improvement in her symptoms overall. However she continues to be febrile and remains hypotensive. No other events reported overnight. Exam Narrative Exam Narrative: General: Patient appears ill but not toxic at time of exam, AAOX3, NAD Neck: Supple CV: Regular, borderline tachycardic, S1S2, No rubs, murmurs, or gallops. Pulmonary: Clear to auscultation bilaterally, no crackles, wheezing, or rhonchi on limited anterior and lateral exam. Abdomen: + Bowel Sounds, soft, nontender, nondistended Vascular: Mild b/l nonpitting lower extremity edema Psych: Normal mood and affect. Objective Objective Clinical Data: Abnormal lab results 07/18/18 07/19/18 07/19/18 Range/Units 20:03 07:12 07:12 WBC 3.12 L D (4.4-10.8) k/cumm RBC 3.31 L (4.00-5.20) m/cumm Hgb 9.8 L D (12.0-15.5) g/dL Hct 31.5 L (36.0-46.0) % MCV 95.2 H (80-95) fL MCHC 31.1 L (32.0-36.0) g/dL RDW 15.7 H (11.7-14.6) % MPV 11.5 H (8.0-11.0) fL Potassium 3.4 L (3.5-5.1) mmol/L Chloride 108 H (98-107) mmol/L Glucose 121 H (70-100) mg/dL Calcium 8.1 L (8.5-10.1) mg/dL Magnesium 1.6 L (1.8-2.4) mg/dL Total Protein 6.3 L (6.4-8.2) g/dL Albumin 2.1 L (3.4-5.0) g/dL Vital Signs Temperature 39 C H 07/19/18 15:27 Temperature Source Tympanic 07/19/18 11:00 Pulse 88 07/19/18 11:00 Pulse Rhythm Regular 07/19/18 07:19 Pulse 101 H 07/18/18 18:10 Respiratory Rate 18 07/19/18 11:00 Respiratory Effort 07/19/18 07:19 Respiratory Depth Normal 07/19/18 07:19 Respiratory Pattern Normal 07/19/18 07:19 Blood Pressure 82/50 L 07/19/18 11:30 Blood Pressure Mean 68 07/18/18 18:45 Blood Pressure Position Supine 07/18/18 13:39 Pulse Oximetry 98 07/19/18 11:00 Oxygen Delivery Method Room Air 07/19/18 11:00 Oxygen Flow Rate 0 07/19/18 11:00 Pain Level 0 07/19/18 11:00 Comment 07/19/18 11:30 Intake & Output 07/18/18 07/19/18 07/19/18 23:59 11:59 23:59 Intake Total 3210 / 3210 1127.5 / 2517.5 1390 / 2517.5 Output Total 0 / 0 Balance 3210 / 3210 1127.5 / 2517.5 1390 / 2517.5 Weight 56.2 kg 56.2 kg Intake: IV 3210 / 3210 1127.5 / 2277.5 1150 / 2277.5 Oral 240 / 240 Output: Post Void Residual 0 / 0 Other: Urine Color Yellow Yellow Urine Appearance Cloudy Sediment Urine Odor Normal Normal Comment inc x 1 pt incontinent of large amounts of urine. Stool Size Small Small Stool Characteristics Soft Soft Formed Brown Voiding Methods Diaper Diaper Diaper Incontinent Incontinent Incontinent # Bowel Movements 1 Laboratory Results WBC 3.12 k/cumm (4.4-10.8) L D 07/19/18 07:12 RBC 3.31 m/cumm (4.00-5.20) L 07/19/18 07:12 Hgb 9.8 g/dL (12.0-15.5) L D 07/19/18 07:12 Hct 31.5 % (36.0-46.0) L 07/19/18 07:12 MCV 95.2 fL (80-95) H 07/19/18 07:12 MCH 29.6 pg (27.0-33.0) 07/19/18 07:12 MCHC 31.1 g/dL (32.0-36.0) L 07/19/18 07:12 RDW 15.7 % (11.7-14.6) H 07/19/18 07:12 Plt Count 135 x1000/uL (130-400) 07/19/18 07:12 MPV 11.5 fL (8.0-11.0) H 07/19/18 07:12 Immature Gran % 0.2 07/18/18 13:55 Neutrophils % 89.7 07/18/18 13:55 Lymphocytes % 4.9 07/18/18 13:55 Monocytes % 3.8 07/18/18 13:55 Eosinophils % 1.2 07/18/18 13:55 Basophils % 0.2 07/18/18 13:55 Absolute Neutrophils 5.18 k/cumm (1.2-6.7) 07/18/18 13:55 Absolute Lymphocytes 0.28 k/cumm (1.2-3.4) L 07/18/18 13:55 Absolute Monocytes 0.22 k/cumm (0.11-0.7) 07/18/18 13:55 Absolute Eosinophils 0.07 k/cumm (0.0-0.7) 07/18/18 13:55 Absolute Basophils 0.01 k/cumm (0.0-0.2) 07/18/18 13:55 PT 11.3 sec (9.3-11.0) H 07/18/18 13:55 INR 1.1 (0.9-1.1) 07/18/18 13:55 Sodium 140 mmol/L (136-145) 07/19/18 07:12 Potassium 3.4 mmol/L (3.5-5.1) L 07/19/18 07:12 Chloride 108 mmol/L (98-107) H 07/19/18 07:12 Carbon Dioxide 25.8 mmol/L (21.0-32.0) 07/19/18 07:12 Anion Gap 6.2 mmol/L (3-11) 07/19/18 07:12 BUN 7 mg/dL (7-18) 07/19/18 07:12 Creatinine 0.64 mg/dL (0.55-1.02) 07/19/18 07:12 Estimated GFR/1.73 m2 >= 60.00 (mL/min/1.73m2) 07/19/18 07:12 Glucose 121 mg/dL (70-100) H 07/19/18 07:12 Lactate 1.0 mmol/l (0.6-1.4) 07/19/18 09:55 Calcium 8.1 mg/dL (8.5-10.1) L 07/19/18 07:12 Magnesium 1.6 mg/dL (1.8-2.4) L 07/18/18 20:03 Total Bilirubin 0.3 mg/dL (0.2-1.0) 07/19/18 07:12 AST 32 U/L (15-37) 07/19/18 07:12 ALT 24 U/L (12-78) 07/19/18 07:12 Alkaline Phosphatase 93 U/L (46-116) 07/19/18 07:12 Total Protein 6.3 g/dL (6.4-8.2) L 07/19/18 07:12 Albumin 2.1 g/dL (3.4-5.0) L 07/19/18 07:12 Urine Color Yellow (Yellow) 07/18/18 13:45 Urine Clarity Cloudy 07/18/18 13:45 Urine pH 5.5 (5-8) 07/18/18 13:45 Ur Specific [place] >= 1.030 (1.005-1.025) H 07/18/18 13:45 Urine Protein 100 mg/dL (Negative) H 07/18/18 13:45 Urine Ketones Negative mg/dL (Negative) 07/18/18 13:45 Urine Blood Small (Negative) H 07/18/18 13:45 Urine Nitrite Positive (Negative) H 07/18/18 13:45 Urine Bilirubin Negative (Negative) 07/18/18 13:45 Urine Urobilinogen 0.2 EU/dL (Up TO 0.2) 07/18/18 13:45 Ur Leukocyte Esterase Small (Negative) H 07/18/18 13:45 Urine RBC Not Applicable 07/18/18 13:45 Urine WBC >50 HPF (0-5) 07/18/18 13:45 Ur Epithelial Cells Not Applicable 07/18/18 13:45 Urine Crystals Not Applicable 07/18/18 13:45 Urine Bacteria Moderate HPF (Negative) 07/18/18 13:45 Urine Mucus Not Applicable 07/18/18 13:45 Ur Culture Indicated? Yes 07/18/18 13:45 Urine Glucose Negative mg/dL (Negative) 07/18/18 13:45 Urine Culture Preliminary 07/19/18-1150 Day 1 Result ISOLATES BELOW ISOLATE 1 COLONY COUNT >100,000 COLONIES/ML ISOLATE 1 APPEARANCE Gram Negative Tam ISOLATE 1 ACTION SUSCEPTIBILITY TO FOLLOW Organism 1 Escherichia coli COLONY COUNT >100,000 COLONIES/ML Esch coli: Pending Objective Narrative Objective Narrative: EXAM: XR Chest, 2 Views EXAM DATE/TIME: 07/18/2018 1:49 PM CLINICAL HISTORY: 37 years old, female; Signs and symptoms; Other: Fever, cough TECHNIQUE: XR of the chest, 2 views. COMPARISON: CR PORTABLE AP CHEST, POST LINE 11/24/2017 12:51 PM FINDINGS: The lung sorenson are clear bilaterally. No focal pulmonary consolidation is present. The cardiac silhouette is within normal limits. The costophrenic angles are sharp. The bony structures appear unremarkable. IMPRESSION: No evidence of acute cardiopulmonary disease.
[2018-07-19] MEDS: Normal Saline 250 ML 500 ML IV (16:40)
[2018-07-19] MEDS: Normal Saline 500 ML IV (16:55)
[2018-07-19] MEDS: Normal Saline 1,000 ML 250 ML IV ×2 (19:21→22:49)
[2018-07-19] MEDS: clonazePAM 1 MG TAB PO (19:59)
[2018-07-20] VITALS (9 sets, daily range): BP systolic 100–113; BP diastolic 64–73; PULSE 86–105; RESP 16–18; TEMP 37.1–38.8; O2SAT 94–98
[2018-07-20] MEDS: MEROPENEM 1 GM in Normal Saline 100 ML IVPB ×2 (01:42→09:30)
[2018-07-20] MEDS: Acetaminophen 325 MG TAB 650 MG PO ×2 (03:22→17:22)
[2018-07-20] MEDS: Normal Saline 1,000 ML 250 ML IV ×4 (03:45→17:25)
[2018-07-20 07:25] LABS: Absolute Basophil Count 0.01 k/cumm (0.0-0.2); Absolute Eosinophil Count 0.12 k/cumm (0.0-0.7); Absolute Lymphocyte Count 0.36 k/cumm (1.2-3.4); Absolute Monocyte Count 0.19 k/cumm (0.11-0.7); Absolute Neutrophil Count 2.37 k/cumm (1.2-6.7); Basophils % 0.3; Eosinophils % 3.9; HCT 31.7 % (36.0-46.0); HGB 9.9 g/dL (12.0-15.5); Lymphocytes % 11.8; Mean Corp. HGB Concentration 31.2 g/dL (32.0-36.0); Mean Corpuscular Hemoglobin 29.5 pg (27.0-33.0); Mean Corpuscular Volume 94.3 fL (80-95); Mean Platelet Volume 11.3 fL (8.0-11.0); Monocytes % 6.2; Neutrophils % 77.8; Platelet Count 146 x1000/uL (130-400); RBC 3.36 m/cumm (4.00-5.20); RBC Distribution Width 15.7 % (11.7-14.6); White Blood Cell Count 3.05 k/cumm (4.4-10.8)
[2018-07-20 07:33] LABS: Anion Gap 6.6 mmol/L (3-11); BUN 4 mg/dL (7-18); CO2 25.4 mmol/L (21.0-32.0); CREATININE 0.58 mg/dL (0.55-1.02); Chloride 110 mmol/L (98-107); Glucose 78 mg/dL (70-100); Magnesium 1.8 mg/dL (1.8-2.4); Sodium 142 mmol/L (136-145)
[2018-07-20] MEDS: Pantoprazole 40 MG VIAL IVP (08:48)
[2018-07-20] MEDS: Escitalopram 20 MG TAB PO (08:49)
[2018-07-20] MEDS: Baclofen 10 MG TAB 30 MG PO ×3 (08:49→19:39)
[2018-07-20] MEDS: Pregabalin 25 MG CAP 75 MG PO ×2 (08:49→19:39)
[2018-07-20] MEDS: Normal Saline Flush 10 ML SYR IVP (08:49)
[2018-07-20] MEDS: Apixaban 2.5 MG TAB PO ×2 (08:49→19:40)
[2018-07-20] MEDS: Magnesium Oxide 400 MG TAB PO (09:39)
--- NOTE | 2018-07-20 10:51 | PHARADMIT ---
Addendum entered by Forrest Pete III 07/21/18 11:45: Pharmacy Note Subjective Patient with debilitating Multipule Sclerosis with UTI (pansensitive) and SIRS. MD notes an patient has worsened since switching for Meropenem to Cipro (spiked fever) Objective Temp: 38.8C overnight, VS-OK SCt, H&H,WBC,Plts-OK INR-1.6 Assessment IV Cipro continues, Scheduled IV APAP & po Ibuprofenprn for fevers. Plan Nurse notes ulcerated area, wound consult requested. Original Note: Admission Pharmacy Clinical Review UTI w/SIRS Code Status Full Code Current Weight 56.2 kg Renally Cleared and Narrow Therapeutic Index Meds Crcl ~75.41 mL/min current meds okay QTc Value / Action Taken QTc 455 BP Control, Fever BP 100/64 afebrile Electrolytes reviewed Cl 110 DVT Prophylaxis pt is on apixaban Opiate Usage / Scheduled Bowel Regimen Ordered no/prn Plt/SCr for Heparin / Enoxaparin plt 146 SCr 0.58 INR for Warfarin n/a H/H stable, WBC/Bands h/h 9.9/31.7 wbc 3.05 Antibiotic appropriateness meropenem Cultures and Sensitivities blood cultures no growth @ 24 hours MRSA negative rapid flu negative urine culture grew E.coli; sensitivities are back Surgical ABX d/c within 24 hr n/a DM control / Insulin Dosing BG 78 none Heart Failure (Check EF%) (OMERO's, B-Block, Diuretics) none IV to PO Switch n/a Home Meds Reviewed -medroxyprogesterone may diminish the therapeutic effects/counteract the anticoagulant effects of apixaban -separate admin of bisacodyl from magnesium hydroxide; vitamin D and medroxyprogesterone from cholestyramine -multiple PAID INTERN depressants: baclofen, clonazepam, pregabalin Home Meds Not Ordered glucagon, medroxyprogesterone, miconazole, ondansetron Comments look for change in abx due to sensitivities
--- NOTE | 2018-07-20 12:36 | PGE_ITS ---
Date of Service Date of service: 07/20/18 Time of Service: 12:33 Assessment and Plan (1) Sepsis: Current visit: Yes Status: Acute Based on initial presentation of fevers, tachycardia, altered mental status, and known urinary source with elevated Lactic Acid. Urine Culture growing a pansensitive E.Coli. Responded to aggressive fluid resuscitation. Will hold Meropenem, and narrow to IV Cipro - currently day #2 total of antibiotic therapy. Will adjust fluids when blood pressure is stable and a bit more improved. (2) UTI (urinary tract infection): Current visit: Yes Status: Acute Treatment as above. (3) Neurogenic bladder: Current visit: No Status: Acute Noted, with previously reported recurrent UTIs. Review of culture results with prior evidence of Citrobacter freundii, Klebsiella, and Pseudomonas, now E.Coli - all essentially pansensitive. Post void bladder scan without residual. Ms. Salamanca follows with urology chronically. (4) Type 2 diabetes mellitus with hyperglycemia: Current visit: No Status: Acute Unsure of current treatment modality, and whether the patient is simply diet controlled. No evidence of insulin or other agents with review of home med list. Morning blood sugar appears minimally elevated only. Will monitor with twice daily Accu-Cheks, and initiate sliding scale coverage if needed. Current blood sugars in the 80-90's. 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 Patient has a history of former resection and radiation therapy, followed by reconstructive surgery. (6) MS (multiple sclerosis): Current visit: Yes Status: Chronic Noted. (7) DVT (deep venous thrombosis): Current visit: No Status: Chronic History of DVT, currently maintained on prophylactic doses of apixaban. Will ensure PPI therapy as well, especially when acutely ill. Subjective Interval history since last seen: Pleasant but unfortunate 37 year old woman with a prior medical history significant for progressive MS with a neurogenic bladder, and prior recurrent UTIs, admitted from [facility] Emergency Department on 07/18 with a diagnosis of UTI. Ms. Salamanca has a past medical history significant for MS initially diagnosed at 13 years of age. 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 She has a history of DVT in the past as well, currently on prophylactic doses of apixaban. Her other history includes DM, and carcinoma of the tongue s/p resection, radiation, and reconstructive surgery. Patient initially presented to the ED with reported fevers. Her initial bouts of fever had begun 3 or 4 days prior to her admission, and upon evaluation she was found to be febrile here as well. She was also noted to be tachycardic, with a with an altered mental status from baseline, as well as evidence of an elevation in lactate and low blood pressure. Her urinalysis revealed evidence of likely infection. At that time she was referred for admission for further evaluation and treatment. This morning the patient reports improvement in her symptoms overall. She continues to be febrile and remains hypotensive, but with an improving fever curve and improving blood pressures. No other events reported overnight. Exam Narrative Exam Narrative: General: Patient is less ill appearing and not toxic at time of exam, AAOX3, NAD Neck: Supple CV: Regular, borderline tachycardic, S1S2, No rubs, murmurs, or gallops. Pulmonary: Clear to auscultation bilaterally, no crackles, wheezing, or rhonchi on limited anterior and lateral exam. Abdomen: + Bowel Sounds, soft, nontender, nondistended Vascular: Mild b/l nonpitting lower extremity edema Psych: Normal mood and affect. Objective Objective Clinical Data: Abnormal lab results 07/20/18 07/20/18 Range/Units 07:00 07:00 WBC 3.05 L (4.4-10.8) k/cumm RBC 3.36 L (4.00-5.20) m/cumm Hgb 9.9 L (12.0-15.5) g/dL Hct 31.7 L (36.0-46.0) % MCHC 31.2 L (32.0-36.0) g/dL RDW 15.7 H (11.7-14.6) % MPV 11.3 H (8.0-11.0) fL Absolute Lymphocytes 0.36 L (1.2-3.4) k/cumm Chloride 110 H (98-107) mmol/L BUN 4 L (7-18) mg/dL Calcium 8.0 L (8.5-10.1) mg/dL Vital Signs Temperature 37.1 C 07/20/18 07:30 Temperature Source Tympanic 02/12/19 07:30 Pulse 86 07/20/18 07:30 Pulse Rhythm Regular 07/19/18 19:44 Pulse 101 H 07/18/18 18:10 Respiratory Rate 16 07/20/18 07:30 Respiratory Effort 07/19/18 19:44 Respiratory Depth Normal 07/19/18 19:44 Respiratory Pattern Normal 07/19/18 19:44 Blood Pressure 100/64 07/20/18 07:30 Blood Pressure Mean 68 07/18/18 18:45 Blood Pressure Position Supine 07/18/18 13:39 Pulse Oximetry 96 07/20/18 09:20 Oxygen Delivery Method Room Air 07/20/18 09:20 Oxygen Flow Rate 0 07/20/18 09:20 Pain Level 0 07/19/18 11:00 Comment 07/20/18 03:18 Intake & Output 07/19/18 07/20/18 07/20/18 23:59 11:59 23:59 Intake Total 3356.667 / 4484.167 3141.667 / 3141.667 Output Total 0 / 0 Balance 3356.667 / 4484.167 3141.667 / 3141.667 Weight 59.9 kg Intake: IV 3116.667 / 4244.167 2891.667 / 2891.667 Oral 240 / 240 250 / 250 Output: Post Void Residual 0 / 0 Other: Urine Color Yellow Urine Appearance Clear Urine Odor Normal Comment pt incontinent of large amounts of urine. Stool Size Small Stool Characteristics Soft Voiding Methods Diaper Diaper Incontinent Incontinent Laboratory Results WBC 3.05 k/cumm (4.4-10.8) L 07/20/18 07:00 RBC 3.36 m/cumm (4.00-5.20) L 07/20/18 07:00 Hgb 9.9 g/dL (12.0-15.5) L 07/20/18 07:00 Hct 31.7 % (36.0-46.0) L 07/20/18 07:00 MCV 94.3 fL (80-95) 07/20/18 07:00 MCH 29.5 pg (27.0-33.0) 07/20/18 07:00 MCHC 31.2 g/dL (32.0-36.0) L 07/20/18 07:00 RDW 15.7 % (11.7-14.6) H 07/20/18 07:00 Plt Count 146 x1000/uL (130-400) 07/20/18 07:00 MPV 11.3 fL (8.0-11.0) H 07/20/18 07:00 Immature Gran % 0.0 07/20/18 07:00 Neutrophils % 77.8 07/20/18 07:00 Lymphocytes % 11.8 07/20/18 07:00 Monocytes % 6.2 07/20/18 07:00 Eosinophils % 3.9 07/20/18 07:00 Basophils % 0.3 07/20/18 07:00 Absolute Neutrophils 2.37 k/cumm (1.2-6.7) 07/20/18 07:00 Absolute Lymphocytes 0.36 k/cumm (1.2-3.4) L 07/20/18 07:00 Absolute Monocytes 0.19 k/cumm (0.11-0.7) 07/20/18 07:00 Absolute Eosinophils 0.12 k/cumm (0.0-0.7) 07/20/18 07:00 Absolute Basophils 0.01 k/cumm (0.0-0.2) 07/20/18 07:00 PT 11.3 sec (9.3-11.0) H 07/18/18 13:55 INR 1.1 (0.9-1.1) 07/18/18 13:55 Sodium 142 mmol/L (136-145) 07/20/18 07:00 Potassium 4.0 mmol/L (3.5-5.1) 07/20/18 07:00 Chloride 110 mmol/L (98-107) H 07/20/18 07:00 Carbon Dioxide 25.4 mmol/L (21.0-32.0) 07/20/18 07:00 Anion Gap 6.6 mmol/L (3-11) 07/20/18 07:00 BUN 4 mg/dL (7-18) L 07/20/18 07:00 Creatinine 0.58 mg/dL (0.55-1.02) 07/20/18 07:00 Estimated GFR/1.73 m2 >= 60.00 (mL/min/1.73m2) 07/20/18 07:00 Glucose 78 mg/dL (70-100) 07/20/18 07:00 Lactate 1.0 mmol/l (0.6-1.4) 07/19/18 09:55 Calcium 8.0 mg/dL (8.5-10.1) L 07/20/18 07:00 Magnesium 1.8 mg/dL (1.8-2.4) 07/20/18 07:00 Total Bilirubin 0.3 mg/dL (0.2-1.0) 07/19/18 07:12 AST 32 U/L (15-37) 07/19/18 07:12 ALT 24 U/L (12-78) 07/19/18 07:12 Alkaline Phosphatase 93 U/L (46-116) 07/19/18 07:12 Total Protein 6.3 g/dL (6.4-8.2) L 07/19/18 07:12 Albumin 2.1 g/dL (3.4-5.0) L 07/19/18 07:12 Urine Color Yellow (Yellow) 07/18/18 13:45 Urine Clarity Cloudy 07/18/18 13:45 Urine pH 5.5 (5-8) 07/18/18 13:45 Ur Specific [place] >= 1.030 (1.005-1.025) H 07/18/18 13:45 Urine Protein 100 mg/dL (Negative) H 07/18/18 13:45 Urine Ketones Negative mg/dL (Negative) 07/18/18 13:45 Urine Blood Small (Negative) H 07/18/18 13:45 Urine Nitrite Positive (Negative) H 07/18/18 13:45 Urine Bilirubin Negative (Negative) 07/18/18 13:45 Urine Urobilinogen 0.2 EU/dL (Up TO 0.2) 07/18/18 13:45 Ur Leukocyte Esterase Small (Negative) H 07/18/18 13:45 Urine RBC Not Applicable 07/18/18 13:45 Urine WBC >50 HPF (0-5) 07/18/18 13:45 Ur Epithelial Cells Not Applicable 07/18/18 13:45 Urine Crystals Not Applicable 07/18/18 13:45 Urine Bacteria Moderate HPF (Negative) 07/18/18 13:45 Urine Mucus Not Applicable 07/18/18 13:45 Ur Culture Indicated? Yes 07/18/18 13:45 Urine Glucose Negative mg/dL (Negative) 07/18/18 13:45 Urine Culture Final 07/20/18 Day 1 Result ISOLATES BELOW ISOLATE 1 COLONY COUNT >100,000 COLONIES/ML ISOLATE 1 APPEARANCE Gram Negative Tam ISOLATE 1 ACTION SUSCEPTIBILITY TO FOLLOW Day 2 Result ISOLATES BELOW ISOLATE 1 COLONY COUNT >100,000 COLONIES/ML ISOLATE 1 APPEARANCE Gram Negative Tam ISOLATE 2 COLONY COUNT <10,000 COLONIES/ML ISOLATE 2 APPEARANCE Gram Positive Nissa Organism 1 Escherichia coli COLONY COUNT >100,000 COLONIES/ML Organism 2 GRAM POSITIVE NISSA COLONY COUNT <10,000 COLONIES/ML Esch coli RESULT Ampicillin S Ampicillin/Sulbactam S Cefazolin S Ceftazidime S CEFTRIAXONE S Ciprofloxacin S Gentamicin S Nitrofurantoin S Imipenem S Levofloxacin S Tobramycin S Trimethoprim/Sulfamethoxazole S Piperacillin/Tazobactam S
[2018-07-20] MEDS: CIPROFLOXACIN 400 MG/200 ML BAG 200 MG IVPB (13:13)
--- NOTE | 2018-07-20 15:06 | CMPROGNOTE_ITS ---
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 She states that she just finished her soup and that it was peppery for her. Discussed how her children are doing, she states that her daughter is a freshman in college, and her younger daughter is a senior in high school. Ethel states that her family came to see her yesterday and that they brought her a [employer] gift which she enjoys looking at. CM offered continual support to Ethel. A: 37 y/o female admitted 07/18/18 for UTI with SIRS. P: Ethel will return to [facility] once medically cleared. She will transport via w/c van and will F/U with plan of care as prescribed.
--- NOTE | 2018-07-20 15:37 | WOUNDCARE ---
Wound Care Report Pt being followed at [facility] for pressure ulcer on left ishial tuberosity. Chart, H&P, labs and medications reviewed. Spoke with provider at [facility]. Current Tx plan is cleanse wound, apply hydrogel, cover with foam dressing every 3 days and PRN. Documented evidence of wound getting smaller per provider at [facility]. Recommend following current Tx plan while here at [facility]. Recommendations given to Dr. Dexter. Wound assessed, located on left ishial tuberosity. admitted w/resolving stage 3 pressure ulcer. circular and 0.7 deep. able to probe with a cotton tipped applicator. small white slough noted in wound bed, able to agitate. periwound skin red, but blanchable. cleansed w/wound cleanser. hydrogel applied, mepilex placed over wound. Discussed importance of nutrition and repositioning with patient.
[2018-07-20] MEDS: clonazePAM 1 MG TAB PO (19:40)
[2018-07-20] MEDS: Normal Saline 1,000 ML 175 ML IV (22:21)
[2018-07-21] VITALS (10 sets, daily range): BP systolic 93–125; BP diastolic 62–77; PULSE 67–94; RESP 14–18; TEMP 36.3–37.5; O2SAT 93–97
[2018-07-21] MEDS: CIPROFLOXACIN 400 MG/200 ML BAG 200 MG IVPB ×3 (00:18→23:18)
[2018-07-21] MEDS: ACETAMINOPHEN 1,000 MG/100 ML BTL 400 MG IVPB ×3 (02:17→17:43)
[2018-07-21] MEDS: Normal Saline 1,000 ML 175 ML IV ×2 (05:41→14:35)
[2018-07-21 07:39] LABS: Absolute Monocyte Count 0.17 k/cumm (0.11-0.7); HGB 9.6 g/dL (12.0-15.5); Mean Corpuscular Hemoglobin 29.3 pg (27.0-33.0); Mean Corpuscular Volume 94.5 fL (80-95); Mean Platelet Volume 11.5 fL (8.0-11.0); Platelet Count 154 x1000/uL (130-400); RBC 3.28 m/cumm (4.00-5.20); RBC Distribution Width 15.5 % (11.7-14.6); White Blood Cell Count 2.12 k/cumm (4.4-10.8)
[2018-07-21 07:51] LABS: Anion Gap 8.1 mmol/L (3-11); BUN 4 mg/dL (7-18); CO2 25.9 mmol/L (21.0-32.0); CREATININE 0.56 mg/dL (0.55-1.02); Calcium 8.3 mg/dL (8.5-10.1); Chloride 109 mmol/L (98-107); Glucose 86 mg/dL (70-100); Magnesium 1.6 mg/dL (1.8-2.4); Potassium 3.7 mmol/L (3.5-5.1); Sodium 143 mmol/L (136-145)
[2018-07-21 08:02] LABS: Absolute Eosinophil Count 0.11 k/cumm (0.0-0.7); Absolute Lymphocyte Count 0.34 k/cumm (1.2-3.4); Absolute Neutrophil Count 1.48 k/cumm (1.2-6.7); Anisocytosis 1+; Atypical Lymphocytes % 2; Diff Comment Manual Differential
[2018-07-21] MEDS: Apixaban 2.5 MG TAB PO ×2 (08:28→19:24)
[2018-07-21] MEDS: Escitalopram 20 MG TAB PO (08:28)
[2018-07-21] MEDS: Normal Saline Flush 10 ML SYR IVP ×2 (08:29→17:41)
[2018-07-21] MEDS: Baclofen 10 MG TAB 30 MG PO ×3 (08:29→19:24)
[2018-07-21] MEDS: Pantoprazole 40 MG VIAL IVP (08:29)
[2018-07-21] MEDS: Pregabalin 25 MG CAP 75 MG PO ×2 (08:34→19:23)
[2018-07-21] MEDS: POTASSIUM CHLORIDE 20 MEQ, POTASSIUM CHLORIDE 10 MEQ 30 MEQ PO (10:00)
[2018-07-21] MEDS: MAGNESIUM SULFATE 2 GM/50 ML BAG IVPB (10:00)
--- NOTE | 2018-07-21 12:17 | PT.INIE ---
Date of service: 07/21/18 Time of Service: 11:00 PT Notes Inpatient Physical Therapy Evaluation Date: 07/21/18 Referring Doctor: Dr. Dexter PT Orders: PT CONSULT: pt typically is christy elaine and has not been on this admission Precautions: standard Patient Profile/Admitting Diagnosis: 37 year old female resident of [facility] admitted for acute management of UTI and sepsis, in the presence of neurogenic bladder. PT consult has been requested to assess transfers and mobility. PMHX: Multiple sclerosis, diabetes, squamous cell carcinoma of the tongue, history of DVT Social History/Home Situation: Patient is a resident of [facility] re[facility]. She reports that she typically transfers Via Christy to a power chair, which allows her to navigate independently. Current Functional Limitations: Equipment Owned/DME: Power chair, which is not present at time of consultation Subjective: Ethel states that she is feeling somewhat better this morning. She is agreeable to transition up to the chair, although states that she is not sure if she will be able to comfortably remain in the chair due to her significant contractures. She states that she is able to get comfortable in her power chair, although this is with a great deal of specialized modifications to the chair to allow for appropriate positioning. Objective: General Observation: Resting in bed with IV in left upper extremity, Melendez catheter in place. Mental Status: A and O x3 Pain: Denies ROM: Right Upper Extremity: Shoulder flexion was 120 degrees. She is able to demonstrate full opening of the hand, although demonstrates significant flexor tone at rest. She also has visible atrophy of the hand intrinsics. Left Upper Extremity: Shoulder flexion was 150 degrees. She is able to demonstrate full opening of the hand, although demonstrates significant flexor tone at rest. She also has visible atrophy of the hand intrinsics. Right Lower Extremity: Patient rests in 100 degrees hip flexion, 70 degrees internal rotation and 120 degrees of knee flexion. Passively, she tolerates about -70 degrees hip extension, -45 degrees external rotation, -90 degrees knee extension. She received slow, gentle stretching, although with increased muscle tone resulting. Left Lower Extremity: Patient has a flaccid left lower extremity, positioned in neutral hip and knee extension, and 60 degrees of plantarflexion. She tolerates dorsiflexion to -10 degrees, knee flexion to 120 degrees, hip flexion to at least 90 degrees as assessed functionally. Strength: Right Upper Extremity: Grossly 3-/5 Left Upper Extremity: Grossly 3-/5 Right Lower Extremity: Patient has no active movement of the lower extremities Left Lower Extremity: Patient has no active movement of the lower extremities Trunk control: Patient is unable to sit independently, with significant right sided trunk lean. In semi-recline position, she requires significant propping with pillows to maintain position Bed Mobility/Transfers: Rolling, mod assist to the left, max assist to the right Supine to sit: Unable Bed to chair: Christy lift Gait: Unable Balance: Static Sitting: Unable Dynamic Sitting: Unable Static Standing: Unable Dynamic Standing: Unable Special Tests: Mobility Limitations Standardized Measure [facility] AM-PAC 6 clicks Basic Mobility Inpatient Short Form: Raw Score: 6 CMS Score: 100% deficit Informed Consent/Education: Patient instructed in purpose of PT consult and plan of care. Treatment: Today's session consisted of evaluation, as well as manual stretching to the right lower extremity. Patient has significant tone through the right lower extremity, and contractures into hip and knee flexion and hip internal rotation, with extremely limited range available with passive stretching. She was assisted with Christy transfer to the chair, and position with pillows to allow for safe positioning. In the recliner chair, she does require the back rest to be significantly reclined in order to maintain positioning, resulting in positioning that is essentially supine (estimate 30-40 degree angle of backrest). Assessment: Patient is a 37 year old female referred to physical therapy services with the diagnosis of UTI, sepsis, with PT consult requested for assessment of transfers. Patient presents with chronic mobility deficits related to her complicated medical history, and particularly related to her significant limitations in strength and range of motion related to MS patient is a long-term resident of [facility] and rehab, transfers via Christy lift at baseline. She is additionally receiving Botox injections to the right lower extremity, and receiving scheduled PT intervention for PROM at designated intervals after injections. She will require assistance from nursing staff for transfers via Christy lift, although these would be best achieved to her power chair as she is unable to maintain upright positioning in chair without significantly reclining back, due to limited trunk control. She does not require any further PT intervention in acute care setting at this time, as she is at baseline level of function She currently demonstratesd by the following impairment level findings: 1. Flexion contracture right lower extremity 2. Neurogenic tone 3. Decreased strength bilateral lower extremities 4. Decreased trunk control Impairments are contributing to the following functional limitations: 1. Dependent for transfers 2. Dependent for bed mobility 3. Nonambulatory 4. Dependent for positioning of lower extremities 5. Unable to sit and straight back chair due to limited trunk control Patient is assessed as High [id number] complexity based on the following: History: 37-year-old female admitted for medical management of UTI and sepsis. Patient is a [facility]-term [facility], and is dependent for all mobility and self-care due to her weakness and tone related to MS. She also has multiple medical comorbidities as noted above. Examination: Functional limitations as noted above Presentation: Unstable due to ongoing medical issues Decision Making: High complexity Plan of Care/Treatment Plan: No further PT intervention indicated in acute care setting. Patient will require transfer to chair Via Christy lift, with recommendation of obtaining patient's power chair if she will be here for any length of time, to allow for upright positioning for improved pulmonary function. DISCHARGE RECOMMENDATIONS: Patient to [facility] TREATMENT CODE/TIME: 11:00-11:30 ([id number])
--- NOTE | 2018-07-21 12:41 | IN_ITS ---
Date of service: 07/21/18 Time of Service: 11:00 PT Notes Inpatient Physical Therapy Evaluation Date: 07/21/18 Referring Doctor: Dr. Dexter PT Orders: PT CONSULT: pt typically is christy elaine and has not been on this admission Precautions: standard Patient Profile/Admitting Diagnosis: 37 year old female resident of [facility] admitted for acute management of UTI and sepsis, in the presence of neurogenic bladder. PT consult has been requested to assess transfers and mobility. PMHX: Multiple sclerosis, diabetes, squamous cell carcinoma of the tongue, history of DVT Social History/Home Situation: Patient is a resident of [facility] and rehab. She reports that she typically transfers Via Christy to a power chair, which allows her to navigate independently. Current Functional Limitations: Equipment Owned/DME: Power chair, which is not present at time of consultation Subjective: Ethel states that she is feeling somewhat better this morning. She is agreeable to transition up to the chair, although states that she is not sure if she will be able to comfortably remain in the chair due to her significant contractures. She states that she is able to get comfortable in her power chair, although this is with a great deal of specialized modifications to the chair to allow for appropriate positioning. Objective: General Observation: Resting in bed with IV in left upper extremity, Melendez catheter in place. Mental Status: A and O x3 Pain: Denies ROM: Right Upper Extremity: Shoulder flexion was 120 degrees. She is able to demonstrate full opening of the hand, although demonstrates significant flexor tone at rest. She also has visible atrophy of the hand intrinsics. Left Upper Extremity: Shoulder flexion was 150 degrees. She is able to demonstrate full opening of the hand, although demonstrates significant flexor tone at rest. She also has visible atrophy of the hand intrinsics. Right Lower Extremity: Patient rests in 100 degrees hip flexion, 70 degrees internal rotation and 120 degrees of knee flexion. Passively, she tolerates about -70 degrees hip extension, -45 degrees external rotation, -90 degrees knee extension. She received slow, gentle stretching, although with increased muscle tone resulting. Left Lower Extremity: Patient has a flaccid left lower extremity, positioned in neutral hip and knee extension, and 60 degrees of plantarflexion. She tolerates dorsiflexion to -10 degrees, knee flexion to 120 degrees, hip flexion to at least 90 degrees as assessed functionally. Strength: Right Upper Extremity: Grossly 3-/5 Left Upper Extremity: Grossly 3-/5 Right Lower Extremity: Patient has no active movement of the lower extremities Left Lower Extremity: Patient has no active movement of the lower extremities Trunk control: Patient is unable to sit independently, with significant right sided trunk lean. In semi-recline position, she requires significant propping with pillows to maintain position Bed Mobility/Transfers: Rolling, mod assist to the left, max assist to the right Supine to sit: Unable Bed to chair: Christy lift Gait: Unable Balance: Static Sitting: Unable Dynamic Sitting: Unable Static Standing: Unable Dynamic Standing: Unable Special Tests: Mobility Limitations Standardized Measure [facility] AM-PAC 6 clicks Basic Mobility Inpatient Short Form: Raw Score: 6 CMS Score: 100% deficit Informed Consent/Education: Patient instructed in purpose of PT consult and plan of care. Treatment: Today's session consisted of evaluation, as well as manual stretching to the right lower extremity. Patient has significant tone through the right lower extremity, and contractures into hip and knee flexion and hip internal rotation, with extremely limited range available with passive stretching. She was assisted with Christy transfer to the chair, and position with pillows to allow for safe positioning. In the recliner chair, she does require the back rest to be significantly reclined in order to maintain positioning, resulting in positioning that is essentially supine (estimate 30-40 degree angle of backrest). Assessment: Patient is a 37 year old female referred to physical therapy services with the diagnosis of UTI, sepsis, with PT consult requested for assessment of transfers. Patient presents with chronic mobility deficits rela lauren to her complicated medical history, and particularly related to her significant limitations in strength and range of motion related to MS patient is a long-term resident of [facility] and rehab, transfers via Christy lift at baseline. She is additionally receiving Botox injections to the right lower extremity, and receiving scheduled PT intervention for PROM at designated intervals after injections. She will require assistance from nursing staff for transfers via Christy lift, although these would be best achieved to her power chair as she is unable to maintain upright positioning in chair without significantly reclining back, due to limited trunk control. She does not require any further PT intervention in acute care setting at this time, as she is at baseline level of function She currently demonstratesd by the following impairment level findings: 1. Flexion contracture right lower extremity 2. Neurogenic tone 3. Decreased strength bilateral lower extremities 4. Decreased trunk control Impairments are contributing to the following functional limitations: 1. Dependent for transfers 2. Dependent for bed mobility 3. Nonambulatory 4. Dependent for positioning of lower extremities 5. Unable to sit and straight back chair due to limited trunk control Patient is assessed as High [id number] complexity based on the following: History: 37-year-old female admitted for medical management of UTI and sepsis. Patient is a long-term resident of [facility], and is dependent for all mobility and self-care due to her weakness and tone related to MS. She also has multiple medical comorbidities as noted above. Examination: Functional limitations as noted above Presentation: Unstable due to ongoing medical issues Decision Making: High complexity Plan of Care/Treatment Plan: No further PT intervention indicated in acute care setting. Patient will require transfer to chair Via Christy lift, with recommendation of obtaining patient's power chair if she will be here for any length of time, to allow for upright positioning for improved pulmonary function. DISCHARGE RECOMMENDATIONS: Patient to return to [facility] TREATMENT CODE/TIME: 11:00-11:30 ([id number])
--- NOTE | 2018-07-21 15:03 | CMPROGNOTE_ITS ---
- If Service Date Differs Date of service: 07/21/18 Time of Service: 15:02 Care Management Progress Note S/O: Ethel is lying in bed when this typewriter tester visits this morning, she is pleasant and receptive to discussion. Ethel states that she does not believe that her family will be in today due to the weather last evening. Kunal continues to receive IVF and IV antibiotics. CM updated [facility], of current presentation and plan for return to [facility] when ready. A: 37 y/o female admitted 07/18/18 for UTI with SIRS. P: Ethel will return to [facility] once medically cleared. She will transport via w/c van and will F/U with plan of care as prescribed.
--- NOTE | 2018-07-21 16:28 | PGE_ITS ---
Date of Service Date of service: 07/21/18 Time of Service: 16:23 Assessment and Plan (1) Sepsis: Current visit: No Status: Acute Based on initial presentation of fevers, tachycardia, altered mental status, and known urinary source with elevated Lactic Acid. Urine Culture growing a pansensitive E.Coli. Responded to aggressive fluid resuscitation. Will hold Meropenem, and narrow to IV Cipro - currently day #3 total of antibiotic therapy. Continue to adjust fluids - decrease rate again today. (2) UTI (urinary tract infection): Current visit: No Status: Acute Treatment as above. (3) Neurogenic bladder: Current visit: No Status: Acute Noted, with previously reported recurrent UTIs. Review of culture results with prior evidence of Citrobacter freundii, Klebsiella, and Pseudomonas, now E.Coli - all essentially pansensitive. Post void bladder scan without residual. Ms. Salamanca follows with urology chronically. (4) Type 2 diabetes mellitus with hyperglycemia: Current visit: No Status: Acute Unsure of current treatment modality, and whether the patient is simply diet controlled. No evidence of insulin or other agents with review of home med list. Morning blood sugar appears minimally elevated only. Will monitor with twice daily Accu-Cheks, and initiate sliding scale coverage if needed. Current blood sugars in the 80-100's. 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 Patient has a history of former resection, radiation therapy, and reconstructive surgery. (6) MS (multiple sclerosis): Current visit: Yes Status: Chronic Noted. (7) DVT (deep venous thrombosis): Current visit: No Status: Chronic History of DVT, currently maintained on prophylactic doses of apixaban. Will ensure PPI therapy as well, especially when acutely ill. Subjective Interval history since last seen: Pleasant but unfortunate 37 year old woman with a prior medical history significant for progressive MS with a neurogenic bladder, and prior recurrent UTIs, admitted from [facility] Emergency Department on 07/18 with a diagnosis of UTI. Ms. Salamanca has a past medical history significant for MS initially diagnosed at 13 years of age. 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 She has a history of DVT in the past as well, currently on prophylactic doses of apixaban. Her other history includes DM, and carcinoma of the tongue s/p resection, radiation, and reconstructive surgery. Patient initially presented to the ED with reported fevers. Her initial bouts of fever had begun 3 or 4 days prior to her admission, and upon evaluation she was found to be febrile here as well. She was also noted to be tachycardic, with a with an altered mental status from baseline, as well as evidence of an elevation in lactate and low blood pressure. Her urinalysis revealed evidence of likely infection. At that time she was referred for admission for further evaluation and treatment. This morning the patient reports improvement in her symptoms again, but was again febrile last night. Her blood pressure has improved overall. Her Urine Culture was positive for a pansensitive E.Coli. Her mental status also remains at baseline. No other events reported overnight. Exam Narrative Exam Narrative: General: Patient is less ill appearing and not toxic at time of exam, AAOX3, NAD Neck: Supple CV: Regular, nontachycardic, S1S2, No rubs, murmurs, or gallops. Pulmonary: Clear to auscultation bilaterally, no crackles, wheezing, or rhonchi on limited anterior and lateral exam. Abdomen: + Bowel Sounds, soft, nontender, nondistended Vascular: Mild b/l nonpitting lower extremity edema Psych: Normal mood and affect. Objective Objective Clinical Data: Abnormal lab results 07/21/18 07/21/18 Range/Units 06:25 06:25 WBC 2.12 L D (4.4-10.8) k/cumm RBC 3.28 L (4.00-5.20) m/cumm Hgb 9.6 L (12.0-15.5) g/dL Hct 31.0 L (36.0-46.0) % MCHC 31.0 L (32.0-36.0) g/dL RDW 15.5 H (11.7-14.6) % MPV 11.5 H (8.0-11.0) fL Absolute Lymphocytes 0.34 L (1.2-3.4) k/cumm Chloride 109 H (98-107) mmol/L BUN 4 L (7-18) mg/dL Calcium 8.3 L (8.5-10.1) mg/dL Magnesium 1.6 L (1.8-2.4) mg/dL Vital Signs Temperature 36.8 C 07/21/18 15:23 Temperature Source Tympanic 07/21/18 15:23 Pulse 72 07/21/18 15:23 Pulse Rhythm Regular 07/21/18 15:30 Pulse 101 H 07/18/18 18:10 Respiratory Rate 16 07/21/18 15:23 Respiratory Effort Non-Labored 07/21/18 15:30 Respiratory Depth Normal 07/21/18 15:30 Respiratory Pattern Normal 07/21/18 15:30 Blood Pressure 107/77 07/21/18 15:23 Blood Pressure Mean 68 07/18/18 18:45 Blood Pressure Position Supine 07/18/18 13:39 Pulse Oximetry 94 L 07/21/18 16:16 Oxygen Delivery Method Room Air 07/21/18 16:16 Oxygen Flow Rate 0 07/21/18 16:16 Pain Level 0 07/19/18 11:00 Comment 07/20/18 03:18 Intake & Output 07/20/18 07/21/18 07/21/18 23:59 11:59 23:59 Intake Total 2450 / 5691.667 2525.833 / 2765.833 240 / 2765.833 Output Total 200 / 200 3250 / 4950 1700 / 4950 Balance 2250 / 5491.667 -724.167 / -2184.167 -1460 / -2184.167 Weight 58.7 kg Intake: IV 2200 / 5191.667 2285.833 / 2285.833 Oral 250 / 500 240 / 480 240 / 480 Output: Urine 200 / 200 3250 / 4950 1700 / 4950 Other: Urine Color Yellow Yellow Straw Urine Appearance Clear Clear Clear Urine Odor None None Comment Post void. Stool Size Moderate Small Stool Characteristics Soft Soft Formed Brown Voiding Methods Indwelling Catheter Indwelling Catheter Laboratory Results WBC 2.12 k/cumm (4.4-10.8) L D 07/21/18 06:25 RBC 3.28 m/cumm (4.00-5.20) L 07/21/18 06:25 Hgb 9.6 g/dL (12.0-15.5) L 07/21/18 06:25 Hct 31.0 % (36.0-46.0) L 07/21/18 06:25 MCV 94.5 fL (80-95) 07/21/18 06:25 MCH 29.3 pg (27.0-33.0) 07/21/18 06:25 MCHC 31.0 g/dL (32.0-36.0) L 07/21/18 06:25 RDW 15.5 % (11.7-14.6) H 07/21/18 06:25 Plt Count 154 x1000/uL (130-400) 07/21/18 06:25 MPV 11.5 fL (8.0-11.0) H 07/21/18 06:25 Immature Gran % See Differential 07/21/18 06:25 Neutrophils % 65.0 07/21/18 06:25 Band Neutrophils % 5.0 % 07/21/18 06:25 Lymphocytes % 14.0 07/21/18 06:25 Atypical Lymphs % 2 07/21/18 06:25 Monocytes % 8.0 07/21/18 06:25 Eosinophils % 5.0 07/21/18 06:25 Basophils % 0.0 07/21/18 06:25 Absolute Neutrophils 1.48 k/cumm (1.2-6.7) 07/21/18 06:25 Absolute Lymphocytes 0.34 k/cumm (1.2-3.4) L 07/21/18 06:25 Absolute Monocytes 0.17 k/cumm (0.11-0.7) 07/21/18 06:25 Absolute Eosinophils 0.11 k/cumm (0.0-0.7) 07/21/18 06:25 Absolute Basophils 0.00 k/cumm (0.0-0.2) 07/21/18 06:25 Metamyelocytes 1.0 % 07/21/18 06:25 Differential Comment Manual differential 07/21/18 06:25 RBC Morphology See below 07/21/18 06:25 Anisocytosis 1+ 07/21/18 06:25 PT 11.3 sec (9.3-11.0) H 07/18/18 13:55 INR 1.1 (0.9-1.1) 07/18/18 13:55 Sodium 143 mmol/L (136-145) 07/21/18 06:25 Potassium 3.7 mmol/L (3.5-5.1) 07/21/18 06:25 Chloride 109 mmol/L (98-107) H 07/21/18 06:25 Carbon Dioxide 25.9 mmol/L (21.0-32.0) 07/21/18 06:25 Anion Gap 8.1 mmol/L (3-11) 07/21/18 06:25 BUN 4 mg/dL (7-18) L 07/21/18 06:25 Creatinine 0.56 mg/dL (0.55-1.02) 07/21/18 06:25 Estimated GFR/1.73 m2 >= 60.00 (mL/min/1.73m2) 07/21/18 06:25 Glucose 86 mg/dL (70-100) 07/21/18 06:25 Lactate 1.0 mmol/l (0.6-1.4) 07/19/18 09:55 Calcium 8.3 mg/dL (8.5-10.1) L 07/21/18 06:25 Magnesium 1.6 mg/dL (1.8-2.4) L 07/21/18 06:25 Total Bilirubin 0.3 mg/dL (0.2-1.0) 07/19/18 07:12 AST 32 U/L (15-37) 07/19/18 07:12 ALT 24 U/L (12-78) 07/19/18 07:12 Alkaline Phosphatase 93 U/L (46-116) 07/19/18 07:12 Total Protein 6.3 g/dL (6.4-8.2) L 07/19/18 07:12 Albumin 2.1 g/dL (3.4-5.0) L 07/19/18 07:12 Urine Color Yellow (Yellow) 07/18/18 13:45 Urine Clarity Cloudy 07/18/18 13:45 Urine pH 5.5 (5-8) 07/18/18 13:45 Ur Specific [place] >= 1.030 (1.005-1.025) H 07/18/18 13:45 Urine Protein 100 mg/dL (Negative) H 07/18/18 13:45 Urine Ketones Negative mg/dL (Negative) 07/18/18 13:45 Urine Blood Small (Negative) H 07/18/18 13:45 Urine Nitrite Positive (Negative) H 07/18/18 13:45 Urine Bilirubin Negative (Negative) 07/18/18 13:45 Urine Urobilinogen 0.2 EU/dL (Up TO 0.2) 07/18/18 13:45 Ur Leukocyte Esterase Small (Negative) H 07/18/18 13:45 Urine RBC Not Applicable 07/18/18 13:45 Urine WBC >50 HPF (0-5) 07/18/18 13:45 Ur Epithelial Cells Not Applicable 07/18/18 13:45 Urine Crystals Not Applicable 07/18/18 13:45 Urine Bacteria Moderate HPF (Negative) 07/18/18 13:45 Urine Mucus Not Applicable 07/18/18 13:45 Ur Culture Indicated? Yes 07/18/18 13:45 Urine Glucose Negative mg/dL (Negative) 07/18/18 13:45
[2018-07-21] MEDS: clonazePAM 1 MG TAB PO (19:24)
[2018-07-21] MEDS: Normal Saline 1,000 ML 150 ML IV (20:48)
[2018-07-22] VITALS (7 sets, daily range): BP systolic 99–123; BP diastolic 65–77; PULSE 64–84; RESP 12–18; TEMP 36.6–37.4; O2SAT 93–99
[2018-07-22] MEDS: ACETAMINOPHEN 1,000 MG/100 ML BTL 400 MG IVPB ×3 (01:33→18:06)
[2018-07-22] MEDS: Normal Saline 1,000 ML 150 ML IV ×3 (04:30→18:59)
[2018-07-22 07:26] LABS: Abs Immature Grans 0.01 k/cumm (0.0-0.09); Absolute Basophil Count 0.01 k/cumm (0.0-0.2); Absolute Eosinophil Count 0.17 k/cumm (0.0-0.7); Absolute Lymphocyte Count 0.32 k/cumm (1.2-3.4); Absolute Monocyte Count 0.14 k/cumm (0.11-0.7); Absolute Neutrophil Count 1.21 k/cumm (1.2-6.7); Basophils % 0.5; Eosinophils % 9.1; HCT 31.3 % (36.0-46.0); HGB 9.8 g/dL (12.0-15.5); Immature Grans % 0.5; Lymphocytes % 17.2; Mean Corp. HGB Concentration 31.3 g/dL (32.0-36.0); Mean Corpuscular Hemoglobin 29.3 pg (27.0-33.0); Mean Corpuscular Volume 93.7 fL (80-95); Mean Platelet Volume 11.1 fL (8.0-11.0); Monocytes % 7.5; Neutrophils % 65.2; Platelet Count 154 x1000/uL (130-400); RBC 3.34 m/cumm (4.00-5.20); RBC Distribution Width 15.5 % (11.7-14.6)
[2018-07-22 07:42] LABS: Anion Gap 8.6 mmol/L (3-11); BUN 5 mg/dL (7-18); CO2 25.4 mmol/L (21.0-32.0); CREATININE 0.59 mg/dL (0.55-1.02); Calcium 8.3 mg/dL (8.5-10.1); Chloride 110 mmol/L (98-107); Glucose 87 mg/dL (70-100); Magnesium 1.7 mg/dL (1.8-2.4); Potassium 3.9 mmol/L (3.5-5.1); Sodium 144 mmol/L (136-145)
[2018-07-22 07:50] LABS: White Blood Cell Count 1.86 k/cumm (4.4-10.8)
[2018-07-22 07:51] LABS: Anisocytosis 1+; Diff Comment Diff Reviewed
[2018-07-22] MEDS: Pregabalin 25 MG CAP 75 MG PO ×2 (08:23→19:28)
[2018-07-22] MEDS: Escitalopram 20 MG TAB PO (08:23)
[2018-07-22] MEDS: Pantoprazole 40 MG VIAL IVP (08:23)
[2018-07-22] MEDS: Baclofen 10 MG TAB 30 MG PO ×3 (08:23→19:29)
[2018-07-22] MEDS: Apixaban 2.5 MG TAB PO ×2 (08:23→19:29)
[2018-07-22] MEDS: Normal Saline Flush 10 ML SYR IVP (08:23)
[2018-07-22] MEDS: Potassium Chloride 10 MEQ TABCR PO (09:48)
[2018-07-22] MEDS: Magnesium Oxide 400 MG TAB PO (09:48)
[2018-07-22] MEDS: AZTREONAM 2,000 MG in Normal Saline 100 ML 200 MG IVPB (09:58)
--- NOTE | 2018-07-22 14:57 | PDOC.CMPRO ---
- If Service Date Differs Date of service: 07/22/18 Time of Service: 14:57 Care Management Progress Note S/O: Ethel is lying in bed when this contract writer visits this morning. She is pleasant and receptive to discussion. She continues on IV antibiotics at this time. A: 37 y/o female admitted with UTI Sirs. P: Ethel to return to [facility] when medically cleared. She will transport via w/c van.
--- NOTE | 2018-07-22 15:01 | W.PM.PROGNOT ---
Date of Service Date of service: 07/22/18 Time of Service: 15:00 Assessment and Plan (1) Sepsis: Current visit: No Status: Acute Based on initial presentation of fevers, tachycardia, altered mental status, and known urinary source with elevated Lactic Acid. Urine Culture growing a pansensitive E.Coli. Responded to aggressive fluid resuscitation. Changed from initial Vancomycin & Meropenem to IV Cipro, but with hives overnight. Change to oral TMP-SMX, observe for an additional day, and consider discharge tomorrow if stable. Currently day #4 total of antibiotic therapy. Discontinue IVFs. (2) UTI (urinary tract infection): Current visit: No Status: Acute Treatment as above. (3) Neurogenic bladder: Current visit: No Status: Acute Noted, with previously reported recurrent UTIs. Review of culture results with prior evidence of Citrobacter freundii, Klebsiella, and Pseudomonas, now E.Coli - all essentially pansensitive. Post void bladder scan without residual. Ms. Salamanca follows with urology chronically. (4) Type 2 diabetes mellitus with hyperglycemia: Current visit: No Status: Acute Unsure of current treatment modality, and whether the patient is simply diet controlled. No evidence of insulin or other agents with review of home med list. Morning blood sugar appears minimally elevated only. Current blood sugars in the 80-100's on twice daily Accu-checks - no need for further checks. 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 Patient has a history of former resection, radiation therapy, and reconstructive surgery. (6) MS (multiple sclerosis): Current visit: Yes Status: Chronic Noted. (7) DVT (deep venous thrombosis): Current visit: No Status: Chronic History of DVT, currently maintained on prophylactic doses of apixaban. Also on PPI therapy for GI Prophylaxis. Subjective Interval history since last seen: Pleasant but unfortunate 37 year old woman with a prior medical history significant for progressive MS with a neurogenic bladder, and prior recurrent UTIs, admitted from [facility] Emergency Department on 07/18 with a diagnosis of UTI. Ms. Salamanca has a past medical history significant for MS initially diagnosed at 13 years of age. 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 She has a history of DVT in the past as well, currently on prophylactic doses of apixaban. Her other history includes DM, and carcinoma of the tongue s/p resection, radiation, and reconstructive surgery. Patient initially presented to the ED with reported fevers. Her initial bouts of fever had begun 3 or 4 days prior to her admission, and upon evaluation she was found to be febrile here as well. She was also noted to be tachycardic, with a with an altered mental status from baseline, as well as evidence of an elevation in lactate and low blood pressure. Her urinalysis revealed evidence of likely infection. At that time she was referred for admission for further evaluation and treatment. This morning the patient reports improvement in her symptoms again. She has remained afebrile since the evening of 07/20. She developed a rash/hives on her RUE on cipro overnight and was changed to Aztreonam. Her blood pressure has improved overall. Her Urine Culture was positive for a pansensitive E.Coli. Her mental status also remains at baseline. No other events reported overnight. Exam Narrative Exam Narrative: General: Patient is awake, in bed, NAD, AAOX3 Neck: Supple CV: Regular, nontachycardic, S1S2, No rubs, murmurs, or gallops. Pulmonary: Clear to auscultation bilaterally, no crackles, wheezing, or rhonchi on limited anterior and lateral exam. Abdomen: + Bowel Sounds, soft, nontender, nondistended Vascular: Mild b/l nonpitting lower extremity edema Psych: Normal mood and affect. Objective Objective Clinical Data: Abnormal lab results 07/22/18 07/22/18 Range/Units 07:00 07:00 WBC 1.86 L* (4.4-10.8) k/cumm RBC 3.34 L (4.00-5.20) m/cumm Hgb 9.8 L (12.0-15.5) g/dL Hct 31.3 L (36.0-46.0) % MCHC 31.3 L (32.0-36.0) g/dL RDW 15.5 H (11.7-14.6) % MPV 11.1 H (8.0-11.0) fL Absolute Lymphocytes 0.32 L (1.2-3.4) k/cumm Chloride 110 H (98-107) mmol/L BUN 5 L (7-18) mg/dL Calcium 8.3 L (8.5-10.1) mg/dL Magnesium 1.7 L (1.8-2.4) mg/dL Vital Signs Temperature 37.0 C 07/22/18 07:20 Temperature Source Tympanic 07/22/18 07:20 Pulse 73 07/22/18 07:20 Pulse Rhythm Regular 07/22/18 07:35 Pulse 101 H 07/18/18 18:10 Respiratory Rate 16 07/22/18 07:20 Respiratory Effort Non-Labored 07/22/18 07:35 Respiratory Depth Normal 07/22/18 07:35 Respiratory Pattern Normal 07/22/18 07:35 Blood Pressure 101/68 07/22/18 07:20 Blood Pressure Mean 68 07/18/18 18:45 Blood Pressure Position Supine 07/18/18 13:39 Pulse Oximetry 95 07/22/18 07:20 Oxygen Delivery Method Room Air 07/22/18 07:20 Oxygen Flow Rate 0 07/22/18 07:20 Pain Level 0 07/22/18 05:00 Comment 07/20/18 03:18 Intake & Output 07/21/18 07/22/18 07/22/18 23:59 11:59 23:59 Intake Total 1915.833 / 4541.666 1300 / 1550 250 / 1550 Output Total 2900 / 6150 1000 / 1000 Balance -984.167 / -6478.307 6265 / 550 -750 / 550 Weight 61.1 kg Intake: IV 1575.833 / 3961.666 1200 / 1200 Oral 340 / 580 100 / 350 250 / 350 Output: Urine 2900 / 6150 1000 / 1000 Other: Urine Color Straw Straw Urine Appearance Clear Clear Clear Urine Odor None Stool Size Small Moderate Stool Characteristics Soft Soft Brown Formed Brown Voiding Methods Indwelling Catheter Laboratory Results WBC 1.86 k/cumm (4.4-10.8) L* 07/22/18 07:00 RBC 3.34 m/cumm (4.00-5.20) L 07/22/18 07:00 Hgb 9.8 g/dL (12.0-15.5) L 07/22/18 07:00 Hct 31.3 % (36.0-46.0) L 07/22/18 07:00 MCV 93.7 fL (80-95) 07/22/18 07:00 MCH 29.3 pg (27.0-33.0) 07/22/18 07:00 MCHC 31.3 g/dL (32.0-36.0) L 07/22/18 07:00 RDW 15.5 % (11.7-14.6) H 07/22/18 07:00 Plt Count 154 x1000/uL (130-400) 07/22/18 07:00 MPV 11.1 fL (8.0-11.0) H 07/22/18 07:00 Immature Gran % 0.5 07/22/18 07:00 Neutrophils % 65.2 07/22/18 07:00 Band Neutrophils % 5.0 % 07/21/18 06:25 Lymphocytes % 17.2 07/22/18 07:00 Atypical Lymphs % 2 07/21/18 06:25 Monocytes % 7.5 07/22/18 07:00 Eosinophils % 9.1 07/22/18 07:00 Basophils % 0.5 07/22/18 07:00 Absolute Neutrophils 1.21 k/cumm (1.2-6.7) 07/22/18 07:00 Absolute Lymphocytes 0.32 k/cumm (1.2-3.4) L 07/22/18 07:00 Absolute Monocytes 0.14 k/cumm (0.11-0.7) 07/22/18 07:00 Absolute Eosinophils 0.17 k/cumm (0.0-0.7) 07/22/18 07:00 Absolute Basophils 0.01 k/cumm (0.0-0.2) 07/22/18 07:00 Metamyelocytes 1.0 % 07/21/18 06:25 Differential Comment Diff reviewed 07/22/18 07:00 RBC Morphology See below 07/22/18 07:00 Anisocytosis 1+ 07/22/18 07:00 PT 11.3 sec (9.3-11.0) H 07/18/18 13:55 INR 1.1 (0.9-1.1) 07/18/18 13:55 Sodium 144 mmol/L (136-145) 07/22/18 07:00 Potassium 3.9 mmol/L (3.5-5.1) 07/22/18 07:00 Chloride 110 mmol/L (98-107) H 07/22/18 07:00 Carbon Dioxide 25.4 mmol/L (21.0-32.0) 07/22/18 07:00 Anion Gap 8.6 mmol/L (3-11) 07/22/18 07:00 BUN 5 mg/dL (7-18) L 07/22/18 07:00 Creatinine 0.59 mg/dL (0.55-1.02) 07/22/18 07:00 Estimated GFR/1.73 m2 >= 60.00 (mL/min/1.73m2) 07/22/18 07:00 Glucose 87 mg/dL (70-100) 07/22/18 07:00 Lactate 1.0 mmol/l (0.6-1.4) 07/19/18 09:55 Calcium 8.3 mg/dL (8.5-10.1) L 07/22/18 07:00 Magnesium 1.7 mg/dL (1.8-2.4) L 07/22/18 07:00 Total Bilirubin 0.3 mg/dL (0.2-1.0) 07/19/18 07:12 AST 32 U/L (15-37) 07/19/18 07:12 ALT 24 U/L (12-78) 07/19/18 07:12 Alkaline Phosphatase 93 U/L (46-116) 07/19/18 07:12 Total Protein 6.3 g/dL (6.4-8.2) L 07/19/18 07:12 Albumin 2.1 g/dL (3.4-5.0) L 07/19/18 07:12 Urine Color Yellow (Yellow) 07/18/18 13:45 Urine Clarity Cloudy 07/18/18 13:45 Urine pH 5.5 (5-8) 07/18/18 13:45 Ur Specific [place] >= 1.030 (1.005-1.025) H 07/18/18 13:45 Urine Protein 100 mg/dL (Negative) H 07/18/18 13:45 Urine Ketones Negative mg/dL (Negative) 07/18/18 13:45 Urine Blood Small (Negative) H 07/18/18 13:45 Urine Nitrite Positive (Negative) H 07/18/18 13:45 Urine Bilirubin Negative (Negative) 07/18/18 13:45 Urine Urobilinogen 0.2 EU/dL (Up TO 0.2) 07/18/18 13:45 Ur Leukocyte Esterase Small (Negative) H 07/18/18 13:45 Urine RBC Not Applicable 07/18/18 13:45 Urine WBC >50 HPF (0-5) 07/18/18 13:45 Ur Epithelial Cells Not Applicable 07/18/18 13:45 Urine Crystals Not Applicable 07/18/18 13:45 Urine Bacteria Moderate HPF (Negative) 07/18/18 13:45 Urine Mucus Not Applicable 07/18/18 13:45 Ur Culture Indicated? Yes 07/18/18 13:45 Urine Glucose Negative mg/dL (Negative) 07/18/18 13:45
--- NOTE | 2018-07-22 15:03 | CMPROGNOTE_ITS ---
- If Service Date Differs Date of service: 07/22/18 Time of Service: 14:57 Care Management Progress Note S/O: Ethel is lying in bed when this expert medical writer visits this morning. She is pleasant and receptive to discussion. She continues on IV antibiotics at this time. A: 37 y/o female admitted with UTI Sirs. P: Ethel to return to [facility] when medically cleared. She will transport via w/c van.
[2018-07-22] MEDS: Sulfameth/Trimeth DS TAB 1 TAB PO (16:07)
[2018-07-22] MEDS: clonazePAM 1 MG TAB PO (19:29)
[2018-07-23] MEDS: ACETAMINOPHEN 1,000 MG/100 ML BTL 400 MG IVPB ×2 (02:22→11:20)
[2018-07-23 03:15] VITALS: BP 113/76; PULSE 77; RESP 16; TEMP 37; O2SAT 95
[2018-07-23] MEDS: Sulfameth/Trimeth DS TAB 1 TAB PO (03:30)
[2018-07-23 07:04] LABS: HCT 32.8 % (36.0-46.0); HGB 10.3 g/dL (12.0-15.5); Mean Corp. HGB Concentration 31.4 g/dL (32.0-36.0); Mean Corpuscular Hemoglobin 29.1 pg (27.0-33.0); Mean Corpuscular Volume 92.7 fL (80-95); Platelet Count 174 x1000/uL (130-400); RBC 3.54 m/cumm (4.00-5.20); RBC Distribution Width 15.3 % (11.7-14.6); White Blood Cell Count 2.22 k/cumm (4.4-10.8)
[2018-07-23 07:08] LABS: Anion Gap 9.6 mmol/L (3-11); BUN 7 mg/dL (7-18); CO2 26.4 mmol/L (21.0-32.0); CREATININE 0.67 mg/dL (0.55-1.02); Calcium 8.8 mg/dL (8.5-10.1); Chloride 108 mmol/L (98-107); Glucose 97 mg/dL (70-100); Magnesium 1.7 mg/dL (1.8-2.4); Sodium 144 mmol/L (136-145)
[2018-07-23 07:20] VITALS: BP 127/81; PULSE 72; RESP 16; TEMP 36.6; O2SAT 95
[2018-07-23 07:49] LABS: Absolute Eosinophil Count 0.18 k/cumm (0.0-0.7); Absolute Lymphocyte Count 0.49 k/cumm (1.2-3.4); Absolute Monocyte Count 0.18 k/cumm (0.11-0.7); Absolute Neutrophil Count 1.38 k/cumm (1.2-6.7); Atypical Lymphocytes % 6; Diff Comment Manual Differential
[2018-07-23 07:50] LABS: RBC Morphology Normal
[2018-07-23] MEDS: Apixaban 2.5 MG TAB PO (08:20)
[2018-07-23] MEDS: Baclofen 10 MG TAB 30 MG PO (08:20)
[2018-07-23] MEDS: Escitalopram 20 MG TAB PO (08:20)
[2018-07-23] MEDS: Pregabalin 25 MG CAP 75 MG PO (08:21)
[2018-07-23] MEDS: Pantoprazole 40 MG VIAL IVP (08:21)
[2018-07-23] MEDS: Normal Saline Flush 10 ML SYR IVP (08:21)
[2018-07-23] MEDS: Normal Saline 500 ML 200 ML IV (11:20)
[2018-07-23] MEDS: Magnesium Oxide 400 MG TAB PO (11:20)
--- NOTE | 2018-07-23 11:32 | DSE_ITS ---
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: Status: Chronic (6) MS (multiple sclerosis): Status: Chronic Discharge Plan Disposition Patient Disposition: SNF ([facility] Condition: Improving Discharge Details Reason For Visit: UTI WITH SIRS Admit Date/Time: 07/18/18 17:48 Admit Provider: Dami Salinas Attending Provider: Dami Salinas Primary Care Provider: Helen Leung Hospital Course Hospital Course: CC: Fever, Altered Mental Status HPI: Pleasant but unfortunate 37 year old woman with a prior medical history significant for progressive MS with a neurogenic bladder, and prior recurrent UTIs, admitted from [facility] Emergency Department on 07/18 with a diagnosis of UTI. Ms. Salamanca has a past medical history significant for MS initially diagnosed at 13 years of age. 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 She has a history of DVT in the past as well, currently on prophylactic doses of apixaban. Her other history includes DM, and carcinoma of the tongue s/p resection, radiation, and reconstructive surgery. Patient initially presented to the ED with reported fevers. Her initial bouts of fever had begun 3 or 4 days prior to her admission, and upon evaluation she was found to be febrile here as well. She was also noted to be tachycardic, with a with an altered mental status from baseline, as well as evidence of an elevation in lactate and low blood pressure. Her urinalysis revealed evidence of likely infection. At that time she was referred for admission for further evaluation and treatment. The patient initially experienced significantly elevated temperatures, tachycardia, and marked hypotension. She responded well to IVF resuscitation and broad spectrum antibiotics. Her Urine Culture showed Pansensitive E.Coli. She has remained afebrile with change to oral antibiotics, which she should be on for another 5 days. This morning the patient reports continued improvement in her symptoms. She has remained afebrile since the evening of 07/20. She developed a rash/hives on her RUE on cipro overnight and was changed to Aztreonam. Her blood pressure has improved overall. She is being discharged back to [facility]. Hospital Course: (1) Sepsis: Diagnosis of sepsis based on initial presentation of fevers, tachycardia, altered mental status, and known urinary source with elevated Lactic Acid. Urine Culture growing a pansensitive E.Coli. Responded to aggressive fluid resuscitation. Changed from initial Vancomycin & Meropenem to IV Cipro, but with hives overnight. Change to oral TMP-SMX, which the patient is tolerating well. Currently day #5 of a planned 10 day course of total of antibiotic therapy. Please note that the patient's WBC decreased substantially - this was thought secondary to the use of IV Cipro (Potential adverse effects including blood dyscrasias and myelosuppression). Her WBC remains low but improved with change in antibiotics. Will recommend a repeat CBC in 3-5 days to ensure continued improvement. (2) UTI (urinary tract infection): Treatment as above. (3) Neurogenic bladder: Noted, with previously reported recurrent UTIs. Review of culture results with prior evidence of Citrobacter freundii, Klebsiella, and Pseudomonas, now E.Coli - all essentially pansensitive. Post void bladder scan without residual. Ms. Salamanca follows with urology chronically. (4) Type 2 diabetes mellitus with hyperglycemia: Unsure of current treatment modality, and whether the patient is simply diet controlled. No evidence of insulin or other agents with review of home med list. Morning blood sugar appears minimally elevated only. Current blood sugars in the 80-100's on twice daily Accu-checks - no need for further checks. 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 Patient has a history of former resection, radiation therapy, and reconstructive surgery. (6) MS (multiple sclerosis): Noted. (7) DVT (deep venous thrombosis): History of DVT, currently maintained on prophylactic doses of apixaban. Also on PPI therapy for GI Prophylaxis. Home Meds and New Rx's Prescriptions: New sulfamethoxazole-trimethoprim 800-160 mg Tablet 1 tab PO Q12H Qty: 0 RF: 0 Continued Depo-Provera 400 MG/1 ML suspension 400 mg IM DIRECTED RF: 0 baclofen 20 MG tablet 1.5 tab PO TID RF: 0 magnesium hydroxide [Milk of Magnesia] 400 MG/5 ML suspension 30 ml PO PRN RF: 0 albuterol sulfate 2.5 MG/3 ML solution for nebulization 2.5 mg UPD Q2H PRN PRNRF: 0 miconazole nitrate 2 % Powder 1 appful topical PRN PRNRF: 0 apixaban 2.5 mg Tablet 2.5 mg PO BID RF: 0 biotin 5 mg/mL Liquid 5 ml PO PRN PRNRF: 0 acetaminophen [Tylenol] 325 MG tablet 650 mg PO Q6H PRN PRNRF: 0 escitalopram oxalate 20 MG tablet 20 mg PO DAILY RF: 0 bisacodyl 10 MG suppository 10 mg [place] DAILY PRN PRN (Reason: Constipation) RF: 0 clonazepam [Klonopin] 1 MG tablet 1 mg PO QPM RF: 0 polyethylene glycol 3350 17 GM powder in packet 17 gm GT DAILY RF: 0 Lyrica 75 MG capsule 75 mg PO BID RF: 0 cholestyramine (with sugar) [Questran] 4 GM powder in packet 1 packet PO Q8H PRN PRN (Reason: loose stools) RF: 0 ondansetron HCl 4 MG tablet 1 tab PO Q8H PRN (Reason: Nausea) RF: 0 cholecalciferol (vitamin D3) 400 UNIT/ML drops 800 unit PO DAILY RF: 0 Glucagon Emergency Kit (human) 1 MG kit 1 mg IJ Q15MIN PRNRF: 0 Discharge Instructions Additional Instructions: Please perform a CBC in 3-5 days. Activity:: Resume prior Activity level Equipment/Supplies:: No Equipment Needed Diet:: Carb Counting Discharge Orders Discharge Orders: Discharge Order (Routine); Ordered 07/23/18 Ordered By: Alex Dexter Other Ambulatory Orders: Complete Blood Count w/Diff (Routine) Location: Determined by Patient Ordered By: Alex Dexter Exam Narrative Exam Narrative: General: Patient is awake, in bed, NAD, AAOX3 Neck: Supple CV: Regular, nontachycardic, S1S2, No rubs, murmurs, or gallops. Pulmonary: Clear to auscultation bilaterally, no crackles, wheezing, or rhonchi on limited anterior and lateral exam. Abdomen: + Bowel Sounds, soft, nontender, nondistended Vascular: Mild b/l nonpitting lower extremity edema Psych: Normal mood and affect. DS: Data Vitals/I&O Vitals and I&O: Vital Signs Temperature 36.6 C 07/23/18 07:20 Temperature Source Tympanic 07/23/18 07:20 Pulse 72 07/23/18 07:20 Pulse Rhythm Regular 07/22/18 23:49 Pulse 101 H 07/18/18 18:10 Respiratory Rate 16 07/23/18 07:20 Respiratory Effort Non-Labored 07/22/18 23:49 Respiratory Depth Normal 07/22/18 23:49 Respiratory Pattern Normal 07/22/18 23:49 Blood Pressure 127/81 07/23/18 07:20 Blood Pressure Mean 68 07/18/18 18:45 Blood Pressure Position Supine 07/18/18 13:39 Pulse Oximetry 95 07/23/18 07:20 Oxygen Delivery Method Room Air 07/23/18 07:20 Oxygen Flow Rate 0 07/23/18 07:20 Pain Level 2 07/23/18 11:20 Comment 07/23/18 03:15 Intake & Output 07/22/18 07/22/18 07/23/18 11:59 23:59 11:59 Intake Total 1300 / 3090 1790 / 3090 1110 / 1110 Output Total 3800 / 3800 2850 / 2850 Balance 1300 / -710 -2010 / -710 -1740 / -1740 Weight 61.1 kg Intake: IV 1200 / 2500 1300 / 2500 1110 / 1110 Oral 100 / 590 490 / 590 Output: Urine 3800 / 3800 2850 / 2850 Other: Urine Color Straw Pale Urine Appearance Clear Clear Clear Urine Odor None Normal Stool Size Large Stool Characteristics Soft Brown Voiding Methods Incontinent Indwelling Catheter Completed studies during hospitalization [Text1]: EXAM: XR Chest, 2 Views EXAM DATE/TIME: 07/18/2018 1:49 PM CLINICAL HISTORY: 37 years old, female; Signs and symptoms; Other: Fever, cough TECHNIQUE: XR of the chest, 2 views. COMPARISON: CR PORTABLE AP CHEST, POST LINE 11/24/2017 12:51 PM FINDINGS: The lung sorenson are clear bilaterally. No focal pulmonary consolidation is present. The cardiac silhouette is within normal limits. The costophrenic angles are sharp. The bony structures appear unremarkable. IMPRESSION: No evidence of acute cardiopulmonary disease. Labs on day of discharge: Labs from last 24 hours 07/23/18 07/23/18 07/22/18 06:20 06:20 07:00 WBC 2.22 L RBC 3.54 L Hgb 10.3 L Hct 32.8 L MCV 92.7 MCH 29.1 MCHC 31.4 L RDW 15.3 H Plt Count 174 MPV 11.0 Immature Gran % 0.0 Neutrophils % 62.0 Lymphocytes % 16.0 Atypical Lymphs % 6 Monocytes % 8.0 Eosinophils % 8.0 Basophils % 0.0 Absolute Neutrophils 1.38 Absolute Lymphocytes 0.49 L Absolute Monocytes 0.18 Absolute Eosinophils 0.18 Absolute Basophils 0.00 Differential Comment Manual differential RBC Morphology Normal Sodium 144 Potassium 4.0 Chloride 108 H Carbon Dioxide 26.4 Anion Gap 9.6 BUN 7 Creatinine 0.67 Estimated GFR/1.73 m2 >= 60.00 Glucose 97 Calcium 8.8 Magnesium 1.7 L Path Cons Comment Preliminary micro results at discharge 07/20/18 20:00 Blood Culture - Preliminary Blood NO GROWTH 48 HOURS 07/20/18 19:50 Blood Culture - Preliminary Blood NO GROWTH 48 HOURS 07/18/18 15:03 Blood Culture - Preliminary Blood NO GROWTH 96 HOURS 07/18/18 13:55 Blood Culture - Preliminary Blood NO GROWTH 96 HOURS Urine Culture Final 07/20/18-0801 Day 1 Result ISOLATES BELOW ISOLATE 1 COLONY COUNT >100,000 COLONIES/ML ISOLATE 1 APPEARANCE Gram Negative Tam ISOLATE 1 ACTION SUSCEPTIBILITY TO FOLLOW Day 2 Result ISOLATES BELOW ISOLATE 1 COLONY COUNT >100,000 COLONIES/ML ISOLATE 1 APPEARANCE Gram Negative Tam ISOLATE 2 COLONY COUNT <10,000 COLONIES/ML ISOLATE 2 APPEARANCE Gram Positive [place] Organism 1 Escherichia coli COLONY COUNT >100,000 COLONIES/ML Organism 2 GRAM POSITIVE MARGOTH COLONY COUNT <10,000 COLONIES/ML Esch coli RESULT Ampicillin S Ampicillin/Sulbactam S Cefazolin S Ceftazidime S CEFTRIAXONE S Ciprofloxacin S Gentamicin S Nitrofurantoin S Imipenem S Levofloxacin S Tobramycin S Trimethoprim/Sulfamethoxazole S Piperacillin/Tazobactam S PFSH Medical History 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) Hemochromatosis (Chronic) DVT (deep venous thrombosis) (Chronic) MS (multiple sclerosis) (Chronic) Depression Type 2 diabetes mellitus Neurogenic bladder (Chronic) Catatonia (Resolved) Surgical History History of skin graft (Resolved) History of tracheostomy (Resolved) S/P percutaneous endoscopic gastrostomy (PEG) tube placement (Resolved) Family History Mother Multiple sclerosis Social History [facility]: [facility] marital status details: currently incarcerated lives independently: No number of children: 2 current occupational status: disabled Smoking and Tabacco status: Never alcohol intake: never substance use type: does not use History History 2 Para Hx # Term Pregnancies 2 Multiple births Hx # Pregnancies Ectopic pregnancies AB induced Hx Number of Living Children AB spontaneous
--- NOTE | 2018-07-23 11:48 | PDOC.CMDIS ---
- If Service Date Differs Date of service: 07/23/18 Time of Service: 11:48 LACE Index Scoring Tool - Questions: Length of Stay (in days): 4 - 6 Acuity (Admit via E.D.?): Yes Comorbidities: Diabetes w/o Complication, Any Tumor E.D. Visits: 3 - Answers: Total Score: 13 Risk of Readmission: High Risk Care Management Discharge Reason for Hospitalization: SIRS, UTI Discharge Plan: Ethel will return to [facility] today via w/c van. [facility], has arranged for H&R w/c van to transport at 1300. MD, and staffing executive aware of time and mode of transport. H&R to bring Ethel's w/c to [facility] for transport. Patient/Family Education Needs: Review DC instructions, any limitations, discuss 'Ask Me Three'. Services Needed at Discharge: Prison Facility ([facility]), Transportation ([facility] w/c van)
--- NOTE | 2018-07-23 11:55 | CMDISCH_ITS ---
- If Service Date Differs Date of service: 07/23/18 Time of Service: 11:48 LACE Index Scoring Tool - Questions: Length of Stay (in days): 4 - 6 Acuity (Admit via E.D.?): Yes Comorbidities: Diabetes w/o Complication, Any Tumor E.D. Visits: 3 - Answers: Total Score: 13 Risk of Readmission: High Risk Care Management Discharge Reason for Hospitalization: SIRS, UTI Discharge Plan: Ethel will return to [facility] today via w/c van. [facility], has arranged for H&R w/c van to transport at 1300. MD, and staff mine warfare officer aware of time and mode of transport. H&R to bring Ethel's w/c to [facility] for transport. Patient/Family Education Needs: Review DC instructions, any limitations, discuss 'Ask Me Three'. Services Needed at Discharge: [facility] Facility ([facility]), Transportation ([facility] w/c van)
== END 2018-07-23 13:14 | disposition skilled nursing facility (03) | DRG 689 ==
LOC: ER 17:01 → MS 19:12
PROVIDERS: Admitting Provider Family Medicine; Emergency Provider Emergency Medicine; PCP Family Medicine; Visit Provider Internal Medicine
DX: N39.0 Urinary tract infection, site not specified (principal); N31.9 Neuromuscular dysfunction of bladder, unspecified; B96.20 Unspecified Escherichia coli [E. coli] as the cause of diseases classified elsewhere; A41.9 Sepsis, unspecified organism; G35 Multiple sclerosis; L50.0 Allergic urticaria; T36.8X5A Adverse effect of other systemic antibiotics, initial encounter; E11.9 Type 2 diabetes mellitus without complications; D00.07 Carcinoma in situ of tongue; Z92.3 Personal history of irradiation; R47.1 Dysarthria and anarthria; Z87.440 Personal history of urinary (tract) infections; Z86.718 Personal history of other venous thrombosis and embolism
CPT/HCPCS: 36410; 36415; 51701; 80048; 80053; 85027; 87040; 87077; 87081; 87449; 93005; 96361; 96365; 97163; 99223; 99232; 99233; 99239; 99285; 71046; 81003; 81015; 83605; 83735; 85025; 85610; 87086; 87186; 93010; J0131; J0744; J3490

== ENCOUNTER 2018-07-26 11:10 | Outpatient (REF) | payer MEDICARE, MEDICAID, SELFPAY ==
[2018-07-26 12:54] LABS: Abs Immature Grans 0.01 k/cumm (0.0-0.09); Absolute Basophil Count 0.02 k/cumm (0.0-0.2); Absolute Eosinophil Count 0.18 k/cumm (0.0-0.7); Absolute Monocyte Count 0.21 k/cumm (0.11-0.7); Absolute Neutrophil Count 2.17 k/cumm (1.2-6.7); Basophils % 0.6; Eosinophils % 5.6; HCT 37.9 % (36.0-46.0); Immature Grans % 0.3; Lymphocytes % 18.8; Mean Corp. HGB Concentration 31.7 g/dL (32.0-36.0); Mean Corpuscular Hemoglobin 29.1 pg (27.0-33.0); Mean Corpuscular Volume 91.8 fL (80-95); Mean Platelet Volume 11.5 fL (8.0-11.0); Monocytes % 6.6; Neutrophils % 68.1; Platelet Count 297 x1000/uL (130-400); RBC 4.13 m/cumm (4.00-5.20); RBC Distribution Width 15.9 % (11.7-14.6); White Blood Cell Count 3.19 k/cumm (4.4-10.8)
== END 2018-07-26 11:30 ==
LOC: LBN 11:10
PROVIDERS: PCP Family Medicine; Visit Provider Family Medicine
DX: G35 Multiple sclerosis (principal); E11.9 Type 2 diabetes mellitus without complications; F41.9 Anxiety disorder, unspecified; E83.119 Hemochromatosis, unspecified
CPT/HCPCS: 85025

== ENCOUNTER → 2018-08-17 13:22 | Outpatient (BNVA) | payer MEDICARE, MEDICAID, SELFPAY | PROVIDERS: PCP Family Medicine; Visit Provider Psychiatry & Neurology Neurology | DX: G82.20 Paraplegia, unspecified (principal); G35 Multiple sclerosis ==

== ENCOUNTER 2018-09-13 11:44 | Outpatient (REF) | payer MEDICARE, MEDICAID, SELFPAY ==
[2018-09-13 13:16] LABS: Abs Immature Grans 0.01 k/cumm (0.0-0.09); Absolute Basophil Count 0.02 k/cumm (0.0-0.2); Absolute Eosinophil Count 0.17 k/cumm (0.0-0.7); Absolute Lymphocyte Count 0.66 k/cumm (1.2-3.4); Absolute Monocyte Count 0.23 k/cumm (0.11-0.7); Absolute Neutrophil Count 1.74 k/cumm (1.2-6.7); Basophils % 0.7; HCT 23.1 % (36.0-46.0); HGB 7.2 g/dL (12.0-15.5); Immature Grans % 0.4; Lymphocytes % 23.3; Mean Corp. HGB Concentration 31.2 g/dL (32.0-36.0); Mean Corpuscular Hemoglobin 29.8 pg (27.0-33.0); Mean Corpuscular Volume 95.5 fL (80-95); Mean Platelet Volume 11.3 fL (8.0-11.0); Monocytes % 8.1; Neutrophils % 61.5; Platelet Count 238 x1000/uL (130-400); RBC 2.42 m/cumm (4.00-5.20); RBC Distribution Width 15.5 % (11.7-14.6); White Blood Cell Count 2.83 k/cumm (4.4-10.8)
[2018-09-13 13:31] LABS: ALT 25 U/L (12-78); AST 14 U/L (15-37); Albumin 2.7 g/dL (3.4-5.0); Alkaline Phosphatase 116 U/L (46-116); Anion Gap 7.1 mmol/L (3-11); BUN 11 mg/dL (7-18); Bilirubin, Total 0.2 mg/dL (0.2-1.0); CO2 29.9 mmol/L (21.0-32.0); CREATININE 0.63 mg/dL (0.55-1.02); Calcium 8.8 mg/dL (8.5-10.1); Chloride 101 mmol/L (98-107); Glucose 149 mg/dL (70-100); HCG Quant, Pregnancy 2 mIU/mL (1-3); Potassium 3.9 mmol/L (3.5-5.1); Sodium 138 mmol/L (136-145); TSH 3.74 uIU/mL (0.358-3.74); Total Protein 6.7 g/dL (6.4-8.2)
[2018-09-13 13:33] LABS: INR 1.1 (0.9-1.1); PTT Activated 23.4 sec (21.0-31.4); Prothrombin Time 10.5 sec (9.3-11.0)
[2018-09-13 14:06] LABS: Anisocytosis 1+; Diff Comment RBC Morph Reviewed; Polychromasia Present
[2018-09-13 21:43] LABS: Estradiol 20 pg/ml
[2018-09-14 09:44] LABS: FSH 18.9 mIU/ml; LH 21.2 mIU/ml
== END 2018-09-13 12:04 ==
LOC: LBN 11:44
PROVIDERS: PCP Family Medicine; Visit Provider Family Medicine
DX: N93.8 Other specified abnormal uterine and vaginal bleeding (principal); N92.1 Excessive and frequent menstruation with irregular cycle; Z79.3 Long term (current) use of hormonal contraceptives; E11.9 Type 2 diabetes mellitus without complications
CPT/HCPCS: 80053; 82670; 83001; 83002; 84146; 84443; 84702; 85025; 85610; 85730

== ENCOUNTER 2018-09-14 11:03 | Outpatient (REF) | payer MEDICARE, MEDICAID, SELFPAY ==
[2018-09-14 12:27] LABS: HGB 6.3 g/dL (12.0-15.5)
[2018-09-14 12:28] LABS: HCT 20.2 % (36.0-46.0)
== END 2018-09-14 11:23 ==
LOC: LBO 11:03
PROVIDERS: PCP Family Medicine; Visit Provider Family Medicine
DX: D64.9 Anemia, unspecified (principal)
CPT/HCPCS: 85014; 85018

== ENCOUNTER 2018-09-14 13:52 | Inpatient (IN) | payer MEDICARE, MEDICAID, SELFPAY ==
[2018-09-14] VITALS (7 sets, daily range): BP systolic 96–118; BP diastolic 65–76; PULSE 109–112; RESP 12–19; TEMP 36.6–37.6; O2SAT 99–100
--- NOTE | 2018-09-14 13:32 | DI.US_ITS ---
SYMPTOMS/DIAGNOSIS: VAGINAL BLEEDING WITH LARGE CLOTS AND SOME CRAMPING X 1-1/2 WEEKS, ON DEPO-MEDROL, AMENORRHEA X 18 YEARS PELVIC ULTRASOUND: Transabdominal and transvaginal examination. The study is limited due to patient positioning. The uterus measures 11.7 cm long x 4.9 cm AP x 6.7 cm transverse. Heterogeneous cystic and solid material is seen within the endometrial canal region; the area measures 6.1 x 4.1 x 5.1 cm. No internal blood flow is seen. The ovaries are seen transabdominally and are unremarkable. There is a small amount of free fluid in the cul-de-sac. IMPRESSION: Heterogeneous avascular material centered in the endometrial canal. Differential considerations include hemorrhage/blood products, infection. Mass cannot be excluded. Gynecologic consult is recommended for further evaluation. The findings were discussed with Dr. Aguiar of the Emergency Department on the date of the examination.
--- NOTE | 2018-09-14 14:08 | ED.GENADUL_ITS ---
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 Clinical Impression: Vaginal bleeding, Anemia Primary Care Provider: Helen Leung ED Provider: Angus Aguiar Home Meds and New Rx's Prescriptions: No Action Depo-Provera 400 MG/1 ML suspension 400 mg IM DIRECTED RF: 0 baclofen 20 MG tablet 1.5 tab PO TID RF: 0 magnesium hydroxide [Milk of Magnesia] 400 MG/5 ML suspension 30 ml PO PRN RF: 0 albuterol sulfate 2.5 MG/3 ML solution for nebulization 2.5 mg UPD Q2H PRN PRNRF: 0 miconazole nitrate 2 % Powder 1 appful topical PRN PRNRF: 0 apixaban 2.5 mg Tablet 2.5 mg PO BID RF: 0 biotin 5 mg/mL Liquid 5 ml PO PRN PRNRF: 0 acetaminophen [Tylenol] 325 MG tablet 650 mg PO Q6H PRN PRNRF: 0 escitalopram oxalate 20 MG tablet 20 mg PO DAILY RF: 0 bisacodyl 10 MG suppository 10 mg IL DAILY PRN PRN (Reason: Constipation) RF: 0 clonazepam [Klonopin] 1 MG tablet 1 mg PO QPM RF: 0 polyethylene glycol 3350 17 GM powder in packet 17 gm GT DAILY RF: 0 Lyrica 75 MG capsule 75 mg PO BID RF: 0 cholestyramine (with sugar) [Questran] 4 GM powder in packet 1 packet PO Q8H PRN PRN (Reason: loose stools) RF: 0 ondansetron HCl 4 MG tablet 1 tab PO Q8H PRN (Reason: Nausea) RF: 0 cholecalciferol (vitamin D3) 400 UNIT/ML drops 800 unit PO DAILY RF: 0 Glucagon Emergency Kit (human) 1 MG kit 1 mg IJ Q15MIN PRNRF: 0 vitamin B complex Tablet 1 tab PO DAILY RF: 0 Medical Decision Making 37 yo female with hx of MS and dvt on eliquis, comes in with vaginal bleeding for about a week. She resides currently at [facility], and Dr. Nuñez states the pt has had vaginal bleeding for a week. Has Seen OBGYN and was going to have outpatient u/s. Over the weekend it became worse and heavier and today er hgb was 6.5 and decresaed from 7.3 per [facility]. they could not get access or speak with ob so they sent her here. She arrives HD stable, states she has intermittent cramping of the pelvis but no pain, no fevers, and no abdominal pain. 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 I spoke with Dr. Malave who requests u/s and he will evaluate after this as patient is HD stable. pt remained HD stable, labs stable from earlier. Dr. Camacho from radiology unable to determine if she has mass vs clot in uterus. Dr. Rosa from obgyn consulted and will admit for further management Differential Diagnosis fibroid, cancer, Medical Records Medical records reviewed: Yes I reviewed the patient's medical records. Imaging Data Radiologic Study: Attestation: I personally reviewed and interpreted this imaging study as follows: Imaging: Ultrasound Radiologist's impression: IMPRESSION: Heterogeneous avascular material centered in the endometrial canal. Differential considerations include hemorrhage/blood products, infection. Mass cannot be excluded. Gynecologic consult is recommended for further evaluation. Lab Data Lab results reviewed: Yes I reviewed the patient's lab results. HPI General Mode of arrival: EMS . Date/Time Provider Initiated Documentation: 09/14/18 13:55 . Limitations to Documentation: no limitations . Information obtained by: patient . History of Present Illness 37 year old F presents to the emergency department with the chief complaint of vaginal bleeding, described as moderate, Patient started experiencing this week(s) (1) and it has been constant. No relieving factors improve symptom(s), No exacerbating factors reported . Patient did receive the following treatments prior to arrival, none Related Data Home Medications Medication Instructions Recorded Confirmed Depo-Provera 400 mg IM DIRECTED vial 08/19/12 09/14/18 albuterol sulfate 2.5 mg UPD Q2H PRN PRN vial 03/19/17 09/14/18 baclofen 1.5 tab PO TID tab-cap 04/20/17 09/14/18 magnesium hydroxide [Milk of 30 ml PO PRN ml 04/20/17 09/14/18 Magnesia] Lyrica 75 mg PO BID 11/23/17 09/14/18 acetaminophen [Tylenol] 650 mg PO Q6H PRN PRN 11/23/17 09/14/18 bisacodyl 10 mg IL DAILY PRN PRN 11/23/17 09/14/18 cholestyramine (with sugar) 1 packet PO Q8H PRN PRN 11/23/17 09/14/18 [Questran] clonazepam [Klonopin] 1 mg PO QPM 11/23/17 09/14/18 escitalopram oxalate 20 mg PO DAILY 11/23/17 09/14/18 ondansetron HCl 1 tab PO Q8H PRN 11/23/17 09/14/18 polyethylene glycol 3350 17 gm GT DAILY 11/23/17 09/14/18 cholecalciferol (vitamin D3) 800 unit PO DAILY btl 12/01/17 09/14/18 Glucagon Emergency Kit (human) 1 mg IJ Q15MIN PRN 12/27/17 09/14/18 apixaban 2.5 mg PO BID 07/18/18 09/14/18 biotin 5 ml PO PRN PRN 07/18/18 09/14/18 miconazole nitrate 1 appful TOPICAL PRN PRN 07/18/18 09/14/18 vitamin B complex 1 tab PO DAILY 09/14/18 09/14/18 Previous Rx's Medication Instructions Recorded albuterol sulfate 2.5 mg UPD Q2H PRN PRN vial 03/19/17 cholecalciferol (vitamin D3) 800 unit PO DAILY btl 12/01/17 Allergies Allergy/AdvReac Type Severity Reaction Status Date / Time amoxicillin Allergy Severe Hives Unverified 09/14/18 13:59 venom-honey bee Allergy Severe Anaphylaxsi Unverified 09/14/18 13:59 s ciprofloxacin Allergy Intermediate Hives Verified 09/14/18 13:59 cod liver oil Allergy Intermediate Verified 09/14/18 13:59 Gadolinium-Containing Allergy Intermediate Hives Unverified 09/14/18 13:59 Contrast Medi lactose Allergy Mild Verified 09/14/18 13:59 cortisone Allergy Unverified 09/14/18 13:59 interferon beta-1b Allergy Unverified 09/14/18 13:59 [From Betaseron] methylprednisolone Allergy Unverified 09/14/18 13:59 [From Solu-Medrol] metformin AdvReac Intermediate RASH, Unverified 09/14/18 13:59 DIARRHEA gabapentin AdvReac Mild LE edema Unverified 09/14/18 13:59 General Stated 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 BRENDAN: 3 Review of Systems Review of Systems All systems reviewed & are unremarkable except as noted in HPI and below Constitutional Denies chills, Denies fever(s) and Denies weakness Cardiovascular Denies chest pain and Denies dyspnea Respiratory Denies cough and Denies dyspnea Gastrointestinal Denies abdominal pain, Denies nausea and Denies vomiting Neurologic Denies weakness [facility] Medical History 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) Hemochromatosis (Chronic) DVT (deep venous thrombosis) (Chronic) MS (multiple sclerosis) (Chronic) Depression Type 2 diabetes mellitus Neurogenic bladder (Chronic) Catatonia (Resolved) Surgical History History of skin graft (Resolved) History of tracheostomy (Resolved) S/P percutaneous endoscopic gastrostomy (PEG) tube placement (Resolved) Family History Mother Multiple sclerosis Social History Smoking/Tobacco Use Status: Never Alcohol Intake: never Substance use type: does not use Housing: senior living Number of Children: 2 Do you feel safe at home: Yes Do you feel safe in your relationship?: Yes History History 2 Para Hx # Term Pregnancies 2 Multiple births Hx # Pregnancies Ectopic pregnancies AB induced Hx Number of Living Children AB spontaneous Exam Const General: no acute distress Orientation: alert HENMT Head: normal to inspection Ears: external ears normal General nose exam: external nose normal Mouth: moist mucous membranes Eyes General: appearance normal, both eyes and all related structures Neck Neck: normal visual inspection Resp Effort & Inspection: normal respiratory effort and able to speak in complete sentences Cardio Rate: regular rate Skin General skin exam: no rashes or lesions noted Neuro General: alert and oriented x3 Extrem General: normal to inspection Psych Mental Status: mental status grossly normal Course Vital Signs Temperature 36.6 C 09/14/18 13:55 Pulse 111 H 09/14/18 13:55 Respiratory Rate 12 09/14/18 13:55 Blood Pressure 118/70 09/14/18 13:55 Pulse Oximetry 99 09/14/18 13:55 Temperature 36.6 C 09/14/18 13:55 Temperature Source Temporal Artery Scan 09/14/18 13:55 Pulse 111 H 09/14/18 13:55 Respiratory Rate 12 09/14/18 13:55 Respiratory Effort Non-Labored 09/14/18 13:56 Blood Pressure 118/70 09/14/18 13:55 Blood Pressure Position Supine 09/14/18 13:55 Pulse Oximetry 99 09/14/18 13:55 Oxygen Delivery Method Room Air 09/14/18 13:55 Oxygen Flow Rate 0 09/14/18 13:55 Pain Level 0 09/14/18 13:55
[2018-09-14 14:09] LABS: Absolute Basophil Count 0.03 k/cumm (0.0-0.2); Absolute Eosinophil Count 0.25 k/cumm (0.0-0.7); Absolute Monocyte Count 0.23 k/cumm (0.11-0.7); Absolute Neutrophil Count 2.97 k/cumm (1.2-6.7); Basophils % 0.7; Eosinophils % 5.7; Lymphocytes % 20.5; Mean Corp. HGB Concentration 31.4 g/dL (32.0-36.0); Mean Corpuscular Hemoglobin 30.1 pg (27.0-33.0); Mean Corpuscular Volume 95.8 fL (80-95); Mean Platelet Volume 10.8 fL (8.0-11.0); Monocytes % 5.3; Neutrophils % 67.8; Platelet Count 289 x1000/uL (130-400); RBC 2.16 m/cumm (4.00-5.20); RBC Distribution Width 15.5 % (11.7-14.6); White Blood Cell Count 4.38 k/cumm (4.4-10.8)
[2018-09-14 14:12] LABS: HCT 20.7 % (36.0-46.0); HGB 6.5 g/dL (12.0-15.5)
[2018-09-14 14:19] LABS: Anisocytosis 1+; Diff Comment RBC Morph Reviewed; Hypochromasia 1+; Macrocytosis 1+; Microcytosis 1+; Polychromasia Present
[2018-09-14 14:27] LABS: ALT 24 U/L (12-78); AST 14 U/L (15-37); Albumin 2.9 g/dL (3.4-5.0); Alkaline Phosphatase 118 U/L (46-116); Anion Gap 5.8 mmol/L (3-11); BUN 10 mg/dL (7-18); Bilirubin, Total 0.1 mg/dL (0.2-1.0); CO2 31.2 mmol/L (21.0-32.0); CREATININE 0.59 mg/dL (0.55-1.02); Calcium 8.6 mg/dL (8.5-10.1); Chloride 101 mmol/L (98-107); Glucose 117 mg/dL (70-100); Potassium 3.6 mmol/L (3.5-5.1); Sodium 138 mmol/L (136-145); Total Protein 7.6 g/dL (6.4-8.2)
[2018-09-14 14:47] LABS: PTT Activated 22.9 sec (21.0-31.4); Prothrombin Time 10.4 sec (9.3-11.0)
--- NOTE | 2018-09-14 16:35 | W.GYNCONSULT ---
Date of service: 09/09/18 Time of Service: 12:36 Assessment and Plan (1) Breakthrough bleeding on Depo-Provera: Start date: 08/18/18 Current visit: Yes Status: Acute Pt is due for inj in 1+ week. After discussion with her and RN plan is expectant management. If bleeding persists she may need change in contraceptive method for cycle regulation. She is reluctant to use a Mirena IUD and is not a candidate for E2 containing OCPs or other agents secondary to hx of DVT. She is currently on chronic anticoagulation for ~ 5yrs so it is unlikely that her anticoagulation is the source of her current AUB. I discussed with her stopping DepoProvera inj and seeing if BTB resolves. She is reluctant to stop at this time. Nothing on my exam today suggested enlarged uterus or excessive flow. Plan is to f/u with pt around time of next inj and if bleeding persists to begin further w/u. History of Present Illness Chief Complaint: bleeding x2 weeks Narrative: Pt is a 37yo multiparous female currently residing as inpt at [facility]. I was contacted to evaluate the pt after she was noted to have 2weeks of bleeding while on DepoProvera. I visited the pt on the above stated date obtained a hx and performed a bimanual exam. GynHx - DepoProvera for menstrual control x 14yrs. 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 She is due for her next dose in 2weeks. Pt reports no bleeding of this type during the time that she has used the DepoProvera. - Not sexually active. 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 - Previous pt of Dr. Aggarwal. No hx of abn paps. Medical Hx Multiple Sclerosis. Rapid progression. Followed by Dr. Dupree of Neuro Dept [facility]. Hx of spontaneous DVT. On chronic anticoagulation. Hx of SCCIS of tongue. S/P resection. Incontinence of urine and feces. Review of Systems Constitutional Reports as per HPI Gastrointestinal Reports system reviewed and no additional complaints, except as docu Genitourinary Reports abnormal menses, Reports dysmenorrhea (in past prior to using DepoProvera.) and Reports urinary incontinence Musculoskeletal Reports deformity Comments: spastic paraplegia Integumentary/Breasts Comments: skin intact. no ulcers or bed sores Neurologic Reports as per HPI Psychiatric Reports depression (stable. 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) Hemochromatosis (Chronic) DVT (deep venous thrombosis) (Chronic) MS (multiple sclerosis) (Chronic) Depression Type 2 diabetes mellitus Neurogenic bladder (Chronic) Breakthrough bleeding on Depo-Provera (Acute) Catatonia (Resolved) Surgical History History of skin graft (Resolved) History of tracheostomy (Resolved) S/P percutaneous endoscopic gastrostomy (PEG) tube placement (Resolved) Family History Mother Multiple sclerosis Social History Smoking/Tobacco Use Status: Never Alcohol Intake: never Substance use type: does not use Caregiver/Support person: Yes (inpt at [facility]& ) Details: bedbound Housing: intermediate Number of Children: 2 Communication Needs: None current occupation: disabled Sexually active: No Do you feel safe at home: Yes Do you feel safe in your relationship?: Yes Additional Social history: In process of . History History 2 Para Hx # Term Pregnancies 2 Multiple births Hx # Pregnancies Ectopic pregnancies AB induced Hx Number of Living Children AB spontaneous Exam Const General: cooperative, no acute distress and other (lying in bed, contractures of LE ) Nutritional Appearance: thin Orientation: alert, awake and oriented x3 Limitations: physical limitations Other: speech is coherent. affect appropriate. Resp Effort & Inspection: normal respiratory effort GI Inspection: normal to inspection Palpation: soft External Female Exam: external appearance normal Bimanual Exam- Vagina & Uterus: normal vaginal palpation, uterine size normal (small, smooth, non-tender.) and normal cervical palpation Bimanual Exam- Adnexa, other: normal adnexae, adnexae mobile, no adnexal masses and pelvic support normal Other: light blood on adult diaper. no clots or copious flow noted. Skin General skin exam: no rashes or lesions noted Results Last Vital Signs Temp 97.9 F 09/14/18 13:55 Pulse 111 H 09/14/18 13:55 Resp 12 09/14/18 13:55 BP 118/70 09/14/18 13:55 Pulse Ox 99 09/14/18 13:55 Labs : 09/14/18 13:50 09/14/18 13:50 Laboratory Results - last 24 hr 09/14/18 09/14/18 09/14/18 13:50 13:50 13:50 WBC 4.38 L D RBC 2.16 L Hgb 6.5 L* Hct 20.7 L* MCV 95.8 H MCH 30.1 MCHC 31.4 L RDW 15.5 H Plt Count 289 MPV 10.8 Immature Gran % 0.0 Neutrophils % 67.8 Lymphocytes % 20.5 Monocytes % 5.3 Eosinophils % 5.7 Basophils % 0.7 Absolute Neutrophils 2.97 Absolute Lymphocytes 0.90 L Absolute Monocytes 0.23 Absolute Eosinophils 0.25 Absolute Basophils 0.03 Differential Comment Rbc morph reviewed RBC Morphology See below Polychromasia Present Hypochromasia 1+ Anisocytosis 1+ Microcytosis 1+ Macrocytosis 1+ PT 10.4 INR 1.0 APTT 22.9 Sodium 138 Potassium 3.6 Chloride 101 Carbon Dioxide 31.2 Anion Gap 5.8 BUN 10 Creatinine 0.59 Estimated GFR/1.73 m2 >= 60.00 Glucose 117 H Calcium 8.6 Total Bilirubin 0.1 L AST 14 L ALT 24 Alkaline Phosphatase 118 H Total Protein 7.6 Albumin 2.9 L
--- NOTE | 2018-09-14 17:03 | GCONE_ITS ---
Date of service: 09/09/18 Time of Service: 12:36 Assessment and Plan (1) Breakthrough bleeding on Depo-Provera: Start date: 08/18/18 Current visit: Yes Status: Acute Pt is due for inj in 1+ week. After discussion with her and RN plan is expectant management. If bleeding persists she may need change in contraceptive method for cycle regulation. She is reluctant to use a Mirena IUD and is not a candidate for E2 containing OCPs or other agents secondary to hx of DVT. She is currently on chronic anticoagulation for ~ 5yrs so it is unlikely that her anticoagulation is the source of her current AUB. I discussed with her stopping DepoProvera inj and seeing if BTB resolves. She is reluctant to stop at this time. Nothing on my exam today suggested enlarged uterus or excessive flow. Plan is to f/u with pt around time of next inj and if bleeding persists to begin further w/u. History of Present Illness Chief Complaint: bleeding x2 weeks Narrative: Pt is a 37yo multiparous female currently residing as inpt at [facility]. I was contacted to evaluate the pt after she was noted to have 2weeks of bleeding while on DepoProvera. I visited the pt on the above stated date obtained a hx and performed a bimanual exam. GynHx - DepoProvera for menstrual control x 14yrs. 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 She is due for her next dose in 2weeks. Pt reports no bleeding of this type during the time that she has used the DepoProvera. - Not sexually active. 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 - Previous pt of Dr. Aggarwal. No hx of abn paps. Medical Hx Multiple Sclerosis. Rapid progression. Followed by Dr. Dupree of Neuro Dept [facility]. Hx of spontaneous DVT. On chronic anticoagulation. Hx of SCCIS of tongue. S/P resection. Incontinence of urine and feces. Review of Systems Constitutional Reports as per HPI Gastrointestinal Reports system reviewed and no additional complaints, except as docu Genitourinary Reports abnormal menses, Reports dysmenorrhea (in past prior to using DepoProvera.) and Reports urinary incontinence Musculoskeletal Reports deformity Comments: spastic paraplegia Integumentary/Breasts Comments: skin intact. no ulcers or bed sores Neurologic Reports as per HPI Psychiatric Reports depression (stable. 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) Hemochromatosis (Chronic) DVT (deep venous thrombosis) (Chronic) MS (multiple sclerosis) (Chronic) Depression Type 2 diabetes mellitus Neurogenic bladder (Chronic) Breakthrough bleeding on Depo-Provera (Acute) Catatonia (Resolved) Surgical History History of skin graft (Resolved) History of tracheostomy (Resolved) S/P percutaneous endoscopic gastrostomy (PEG) tube placement (Resolved) Family History Mother Multiple sclerosis Social History Smoking/Tobacco Use Status: Never Alcohol Intake: never Substance use type: does not use Caregiver/Support person: Yes (inpt at [facility]& ) Details: bedbound Housing: penitentiary Number of Children: 2 Communication Needs: None current occupation: disabled Sexually active: No Do you feel safe at home: Yes Do you feel safe in your relationship?: Yes Additional Social history: In process of . History History 2 Para Hx # Term Pregnancies 2 Multiple births Hx # Pregnancies Ectopic pregnancies AB induced Hx Number of Living Children AB spontaneous Exam Const General: cooperative, no acute distress and other (lying in bed, contractures of LE ) Nutritional Appearance: thin Orientation: alert, awake and oriented x3 Limitations: physical limitations Other: speech is coherent. affect appropriate. Resp Effort & Inspection: normal respiratory effort GI Inspection: normal to inspection Palpation: soft External Female Exam: external appearance normal Bimanual Exam- Vagina & Uterus: normal vaginal palpation, uterine size normal (small, smooth, non-tender.) and normal cervical palpation Bimanual Exam- Adnexa, other: normal adnexae, adnexae mobile, no adnexal masses and pelvic support normal Other: light blood on adult diaper. no clots or copious flow noted. Skin General skin exam: no rashes or lesions noted Results Last Vital Signs Temp 97.9 F 09/14/18 13:55 Pulse 111 H 09/14/18 13:55 Resp 12 09/14/18 13:55 BP 118/70 09/14/18 13:55 Pulse Ox 99 09/14/18 13:55 Labs : 09/14/18 13:50 09/14/18 13:50 Laboratory Results - last 24 hr 09/14/18 09/14/18 09/14/18 13:50 13:50 13:50 WBC 4.38 L D RBC 2.16 L Hgb 6.5 L* Hct 20.7 L* MCV 95.8 H MCH 30.1 MCHC 31.4 L RDW 15.5 H Plt Count 289 MPV 10.8 Immature Gran % 0.0 Neutrophils % 67.8 Lymphocytes % 20.5 Monocytes % 5.3 Eosinophils % 5.7 Basophils % 0.7 Absolute Neutrophils 2.97 Absolute Lymphocytes 0.90 L Absolute Monocytes 0.23 Absolute Eosinophils 0.25 Absolute Basophils 0.03 Differential Comment Rbc morph reviewed RBC Morphology See below Polychromasia Present Hypochromasia 1+ Anisocytosis 1+ Microcytosis 1+ Macrocytosis 1+ PT 10.4 INR 1.0 APTT 22.9 Sodium 138 Potassium 3.6 Chloride 101 Carbon Dioxide 31.2 Anion Gap 5.8 BUN 10 Creatinine 0.59 Estimated GFR/1.73 m2 >= 60.00 Glucose 117 H Calcium 8.6 Total Bilirubin 0.1 L AST 14 L ALT 24 Alkaline Phosphatase 118 H Total Protein 7.6 Albumin 2.9 L
--- NOTE | 2018-09-14 17:45 | W.PM.HP.N ---
Date of service: 09/14/18 Time of Service: 17:45 Assessment and Plan (1) Abnormal uterine bleeding: Current visit: Yes Status: Acute (2) Blood loss anemia: Current visit: Yes Status: Acute (3) MS (multiple sclerosis): Current visit: No Status: Chronic (4) Hemochromatosis: Current visit: No Status: Chronic Plan to admit the patient to [facility] today. Internal medicine consultation has been placed as well. I did speak with Dr. Avery hampton from hematology at the [facility] regarding options for the patient. She is limited in management because of her chronic conditions. First her hemochromatosis is a contraindication to iron infusion. She is a Jainism and will not take blood products. We will discussed with the patient whether she would be willing to take Procrit or not although there is a relative contraindication to this because of her history of DVT. As per recommendations from hematology will obtain the following labs: Serial CBC, reticulocyte count, haptoglobin, folate, ferritin, iron, TIBC, B12, and TSH. At some point in the future I would recommend hysteroscopy D&C. She did have a pelvic ultrasound which showed a heterogeneous and markedly thickened lining of the uterus. There is a possibility of a fundal mass such as a uterine fibroid but it is obscured by what appears to be blood and clots in the uterus. I would consider another dose of Depo-Provera if absolutely necessary. My preference would be only to take her for surgery if emergent but at this point my preference would be to provide her with time to recuperate her blood count and potentially perform hysteroscopy D&C in the future and consider either NovaSure endometrial ablation or Mirena IUD placement at that point. The patient because of her history does have a high risk with a prolonged surgery such as a hysterectomy but this is also an option down the road. History of Present Illness Chief Complaint: Blood loss anemia due to abnormal uterine bleeding Narrative: This is a 37-year-old female who presents to the emergency department referred by her primary care physician from her rehab facility for evaluation of heavy vaginal bleeding. The patient began having heavy bleeding for over the course of the last 2 weeks and her hemoglobin dipped down to 6.5 today. The patient's medical history is significant for multiple sclerosis and is bedbound she also suffers from hemochromatosis. In addition she has a history of squamous cell carcinoma of the tongue and did develop a DVT 7 years ago. She was initially managed on warfarin for many years and switched to Eliquis. Eliquis was discontinued yesterday. She has been managed on Depo-Provera for the last 18 years to control her menses. In this recent episode she denies any recent weight changes. She denies any dizziness or lightheadedness although she does feel fatigued. As of my visit the patient reports that her bleeding has somewhat subsided. 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) Hemochromatosis (Chronic) DVT (deep venous thrombosis) (Chronic) MS (multiple sclerosis) (Chronic) Depression Type 2 diabetes mellitus Neurogenic bladder (Chronic) Breakthrough bleeding on Depo-Provera (Acute) Catatonia (Resolved) Surgical History History of skin graft (Resolved) History of tracheostomy (Resolved) S/P percutaneous endoscopic gastrostomy (PEG) tube placement (Resolved) Family History Mother Multiple sclerosis Social History Smoking/Tobacco Use Status: Never Alcohol Intake: never Substance use type: does not use Caregiver/Support person: Yes (inpt at [facility] ) Details: bedbound Housing: jail Number of Children: 2 Communication Needs: None current occupation: disabled Sexually active: No Do you feel safe at home: Yes Do you feel safe in your relationship?: Yes Additional Social history: In process of . History History 2 Para Hx # Term Pregnancies 2 Multiple births Hx # Pregnancies Ectopic pregnancies AB induced Hx Number of Living Children AB spontaneous Meds Home Medications Medication Instructions Recorded Confirmed Type Depo-Provera 400 mg IM DIRECTED vial 08/19/12 09/14/18 History albuterol sulfate 2.5 mg UPD Q2H PRN PRN vial 03/19/17 09/14/18 Rx baclofen 1.5 tab PO TID tab-cap 04/20/17 09/14/18 History magnesium hydroxide [Milk of 30 ml PO PRN ml 04/20/17 09/14/18 History Magnesia] Lyrica 75 mg PO BID 11/23/17 09/14/18 History acetaminophen [Tylenol] 650 mg PO Q6H PRN PRN 11/23/17 09/14/18 History bisacodyl 10 mg MS DAILY PRN PRN 11/23/17 09/14/18 History cholestyramine (with sugar) 1 packet PO Q8H PRN PRN 11/23/17 09/14/18 History [Questran] clonazepam [Klonopin] 1 mg PO QPM 11/23/17 09/14/18 History escitalopram oxalate 20 mg PO DAILY 11/23/17 09/14/18 History ondansetron HCl 1 tab PO Q8H PRN 11/23/17 09/14/18 History polyethylene glycol 3350 17 gm GT DAILY 11/23/17 09/14/18 History Glucagon Emergency Kit (human) 1 mg IJ Q15MIN PRN 12/27/17 09/14/18 History apixaban 2.5 mg PO BID 07/18/18 09/14/18 History biotin 5 ml PO PRN PRN 07/18/18 09/14/18 History miconazole nitrate 1 appful TOPICAL PRN PRN 07/18/18 09/14/18 History vitamin B complex 1 tab PO DAILY 09/14/18 09/14/18 History Allergies Allergy/AdvReac Type Severity Reaction Status Date / Time amoxicillin Allergy Severe Hives Unverified 09/14/18 13:59 venom-honey bee Allergy Severe Anaphylaxsi Unverified 09/14/18 13:59 s ciprofloxacin Allergy Intermediate Hives Verified 09/14/18 13:59 cod liver oil Allergy Intermediate Verified 09/14/18 13:59 Gadolinium-Containing Allergy Intermediate Hives Unverified 09/14/18 13:59 Contrast Medi lactose Allergy Mild Verified 09/14/18 13:59 cortisone Allergy Unverified 09/14/18 13:59 interferon beta-1b Allergy Unverified 09/14/18 13:59 [From Betaseron] methylprednisolone Allergy Unverified 09/14/18 13:59 [From Solu-Medrol] metformin AdvReac Intermediate RASH, Unverified 09/14/18 13:59 DIARRHEA gabapentin AdvReac Mild LE edema Unverified 09/14/18 13:59 Exam Const General: cooperative and frail appearing Orientation: alert, awake and oriented x3 GI Other: Abdomen soft and nontender. There are no palpable masses. Results Labs : 09/14/18 13:50 09/14/18 13:50 Laboratory Results - last 24 hr 09/14/18 09/14/18 09/14/18 13:50 13:50 13:50 WBC 4.38 L D RBC 2.16 L Hgb 6.5 L* Hct 20.7 L* MCV 95.8 H MCH 30.1 MCHC 31.4 L RDW 15.5 H Plt Count 289 MPV 10.8 Immature Gran % 0.0 Neutrophils % 67.8 Lymphocytes % 20.5 Monocytes % 5.3 Eosinophils % 5.7 Basophils % 0.7 Absolute Neutrophils 2.97 Absolute Lymphocytes 0.90 L Absolute Monocytes 0.23 Absolute Eosinophils 0.25 Absolute Basophils 0.03 Differential Comment Rbc morph reviewed RBC Morphology See below Polychromasia Present Hypochromasia 1+ Anisocytosis 1+ Microcytosis 1+ Macrocytosis 1+ PT 10.4 INR 1.0 APTT 22.9 Sodium 138 Potassium 3.6 Chloride 101 Carbon Dioxide 31.2 Anion Gap 5.8 BUN 10 Creatinine 0.59 Estimated GFR/1.73 m2 >= 60.00 Glucose 117 H Calcium 8.6 Total Bilirubin 0.1 L AST 14 L ALT 24 Alkaline Phosphatase 118 H Total Protein 7.6 Albumin 2.9 L Last Vital Signs Temp 98.4 F 09/14/18 16:40 Pulse 112 H 09/14/18 16:40 Resp 12 09/14/18 16:40 BP 105/74 09/14/18 16:40 Pulse Ox 100 09/14/18 16:40
--- NOTE | 2018-09-14 17:50 | HPE_ITS ---
Date of service: 09/14/18 Time of Service: 17:45 Assessment and Plan (1) Abnormal uterine bleeding: Current visit: Yes Status: Acute (2) Blood loss anemia: Current visit: Yes Status: Acute (3) MS (multiple sclerosis): Current visit: No Status: Chronic (4) Hemochromatosis: Current visit: No Status: Chronic Plan to admit the patient to [facility] today. Internal medicine consultation has been placed as well. I did speak with Dr. Avery hampton from hematology at the [facility] regarding options for the patient. She is limited in management because of her chronic conditions. First her hemochromatosis is a contraindication to iron infusion. She is a Islam and will not take blood products. We will discussed with the patient whether she would be willing to take Procrit or not although there is a relative contraindication to this because of her history of DVT. As per recommendations from hematology will obtain the following labs: Serial CBC, reticulocyte count, haptoglobin, folate, ferritin, iron, TIBC, B12, and TSH. At some point in the future I would recommend hysteroscopy D&C. She did have a pelvic ultrasound which showed a heterogeneous and markedly thickened lining of the uterus. There is a possibility of a fundal mass such as a uterine fibroid but it is obscured by what appears to be blood and clots in the uterus. I would consider another dose of Depo-Provera if absolutely necessary. My preference would be only to take her for surgery if emergent but at this point my preference would be to provide her with time to recuperate her blood count and potentially perform hysteroscopy D&C in the future and consider either No vaSure endometrial ablation or Mirena IUD placement at that point. The patient because of her history does have a high risk with a prolonged surgery such as a hysterectomy but this is also an option down the road. History of Present Illness Chief Complaint: Blood loss anemia due to abnormal uterine bleeding Narrative: This is a 37-year-old female who presents to the emergency department referred by her primary care physician from her rehab facility for evaluation of heavy vaginal bleeding. The patient began having heavy bleeding for over the course of the last 2 weeks and her hemoglobin dipped down to 6.5 today. The patient's medical history is significant for multiple sclerosis and is bedbound she also suffers from hemochromatosis. In addition she has a history of squamous cell c arcinoma of the tongue and did develop a DVT 7 years ago. She was initially managed on warfarin for many years and switched to Eliquis. Eliquis was discontinued yesterday. She has been managed on Depo-Provera for the last 18 years to control her menses. In this recent episode she denies any recent weight changes. She denies any dizziness or lightheadedness although she does feel fatigued. As of my visit the patient reports that her bleeding has somewhat subsided. 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 ) Details: bedbound Housing: usp Number of Children: 2 Communication Needs: None current occupation: disabled Sexually active: No Do you feel safe at home: Yes Do you feel safe in your relationship?: Yes Additional Social history: In process of . History History 2 Para Hx # Term Pregnancies 2 Multiple births Hx # Pregnancies Ectopic pregnancies AB induced Hx Number of Living Children AB spontaneous Meds Home Medications Medication Instructions Recorded Confirmed Type Depo-Provera 400 mg IM DIRECTED vial 08/19/12 09/14/18 History albuterol sulfate 2.5 mg UPD Q2H PRN PRN vial 03/19/17 09/14/18 Rx baclofen 1.5 tab PO TID tab-cap 04/20/17 09/14/18 History magnesium hydroxide [Milk of 30 ml PO PRN ml 04/20/17 09/14/18 History Magnesia] Lyrica 75 mg PO BID 11/23/17 09/14/18 History acetaminophen [Tylenol] 650 mg PO Q6H PRN PRN 11/23/17 09/14/18 History bisacodyl 10 mg VA DAILY PRN PRN 11/23/17 09/14/18 History cholestyramine (with sugar) 1 packet PO Q8H PRN PRN 11/23/17 09/14/18 History [Questran] clonazepam [Klonopin] 1 mg PO QPM 11/23/17 09/14/18 History escitalopram oxalate 20 mg PO DAILY 11/23/17 09/14/18 History ondansetron HCl 1 tab PO Q8H PRN 11/23/17 09/14/18 History polyethylene glycol 3350 17 gm GT DAILY 11/23/17 09/14/18 History Glucagon Emergency Kit (human) 1 mg IJ Q15MIN PRN 12/27/17 09/14/18 History apixaban 2.5 mg PO BID 07/18/18 09/14/18 History biotin 5 ml PO PRN PRN 07/18/18 09/14/18 History miconazole nitrate 1 appful TOPICAL PRN PRN 07/18/18 09/14/18 History vitamin B complex 1 tab PO DAILY 09/14/18 09/14/18 History Allergies Allergy/AdvReac Type Severity Reaction Status Date / Time amoxicillin Allergy Severe Hives Unverified 09/14/18 13:59 venom-honey bee Allergy Severe Anaphylaxsi Unverified 09/14/18 13:59 s ciprofloxacin Allergy Intermediate Hives Verified 09/14/18 13:59 cod liver oil Allergy Intermediate Verified 09/14/18 13:59 Gadolinium-Containing Allergy Intermediate Hives Unverified 09/14/18 13:59 Contrast Medi lactose Allergy Mild Verified 09/14/18 13:59 cortisone Allergy Unverified 09/14/18 13:59 interferon beta-1b Allergy Unverified 09/14/18 13:59 [From Betaseron] methylprednisolone Allergy Unverified 09/14/18 13:59 [From Solu-Medrol] metformin AdvReac Intermediate RASH, Unverified 09/14/18 13:59 DIARRHEA gabapentin AdvReac Mild LE edema Unverified 09/14/18 13:59 Exam Const General: cooperative and frail appearing Orientation: alert, awake and oriented x3 GI Other: Abdomen soft and nontender. There are no palpable masses. Results Labs : 09/14/18 13:50 09/14/18 13:50 Laboratory Results - last 24 hr 09/14/18 09/14/18 09/14/18 13:50 13:50 13:50 WBC 4.38 L D RBC 2.16 L Hgb 6.5 L* Hct 20.7 L* MCV 95.8 H MCH 30.1 MCHC 31.4 L RDW 15.5 H Plt Count 289 MPV 10.8 Immature Gran % 0.0 Neutrophils % 67.8 Lymphocytes % 20.5 Monocytes % 5.3 Eosinophils % 5.7 Basophils % 0.7 Absolute Neutrophils 2.97 Absolute Lymphocytes 0.90 L Absolute Monocytes 0.23 Absolute Eosinophils 0.25 Absolute Basophils 0.03 Differential Comment Rbc morph reviewed RBC Morphology See below Polychromasia Present Hypochromasia 1+ Anisocytosis 1+ Microcytosis 1+ Macrocytosis 1+ PT 10.4 INR 1.0 APTT 22.9 Sodium 138 Potassium 3.6 Chloride 101 Carbon Dioxide 31.2 Anion Gap 5.8 BUN 10 Creatinine 0.59 Estimated GFR/1.73 m2 >= 60.00 Glucose 117 H Calcium 8.6 Total Bilirubin 0.1 L AST 14 L ALT 24 Alkaline Phosphatase 118 H Total Protein 7.6 Albumin 2.9 L Last Vital Signs Temp 98.4 F 09/14/18 16:40 Pulse 112 H 09/14/18 16:40 Resp 12 09/14/18 16:40 BP 105/74 09/14/18 16:40 Pulse Ox 100 09/14/18 16:40
--- NOTE | 2018-09-14 18:09 | W.MEDCONSULT ---
Date of service: 09/14/18 Time of Service: 18:09 Assessment and Plan (1) Blood loss anemia: Current visit: Yes Status: Acute H/H is stable so far. Agree that it needs to be monitored serially. Agree with holding iron infusions until we know her ferritin numbers. The patient's hemochromatosis is actually protective in this setting. Patient is refusing transfusions due to being a Jehova's witness and is not a good candidate for EPO (even if she did agree) due to history of DVT. Hemodynamically stable. If bleeding resumes, would consider tranexemic acid. (2) Abnormal uterine bleeding: Current visit: Yes Status: Acute Defer to primary team (3) Neurogenic bladder: Current visit: No Status: Acute Bladder scans ordered (4) Hemochromatosis: Current visit: No Status: Chronic As above - anemia studies pending (5) Type 2 diabetes mellitus with hyperglycemia: Current visit: No Status: Chronic patient claims that she no longer has this diagnosis - we will monitor her sugars. Her A1C is not a reliable indicator of sugars in setting of acute anemia. 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 Patient is no longer on tube feeding. (8) Neurogenic bladder: Current visit: No Status: Chronic Bladder scans (9) DVT (deep venous thrombosis): Current visit: No Status: Chronic Holding eliquis. We will research more information as to why the patient is on chronic anticoagulation. She may ultimately be able to be transitioned BID or even daily aspirin if there was only a single event. (10) Discharge planning issues: Current visit: Yes Status: Acute Full code expected to return to [facility] on discharge (11) DVT prophylaxis: Current visit: Yes Status: Acute Eliquis on hold. 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 Patient's H/H was 7.2/23.1 yesterday; today it was 6.5/20/.7. She is no longer bleeding. She denies dizziness when laying or with position change. Denies chest pain, palpitations, or shortness of breath. Dr Malave has already spoken with [facility] [place] hematology. The recommendation was to check the patient's iron studies - and if her ferritin is not high, she might still benefit from an iron infusion. His ultimate plan is to take the patient to the OR once the H/H is stable, do a D&C and possibly put an I&D. Hospitalists were consulted to help manage anemia in this unusual case as well as with general medication management. 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) Hemochromatosis (Chronic) DVT (deep venous thrombosis) (Chronic) MS (multiple sclerosis) (Chronic) Depression Type 2 diabetes mellitus Neurogenic bladder (Chronic) Breakthrough bleeding on Depo-Provera (Acute) Catatonia (Resolved) Surgical History History of skin graft (Resolved) History of tracheostomy (Resolved) S/P percutaneous endoscopic gastrostomy (PEG) tube placement (Resolved) Family History Mother Multiple sclerosis Social History Smoking/Tobacco Use Status: Never Alcohol Intake: never Substance use type: does not use Caregiver/Support person: Yes (inpt at [facility] ) Details: bedbound Housing: senior living Number of Children: 2 Communication Needs: None current occupation: disabled Sexually active: No Do you feel safe at home: Yes Do you feel safe in your relationship?: Yes Additional Social history: In process of . History History 2 Para Hx # Term Pregnancies 2 Multiple births Hx # Pregnancies Ectopic pregnancies AB induced Hx Number of Living Children AB spontaneous Exam Narrative Exam Narrative: General: frail middle aged female, laying comfortably in bed, NAD, pale Neuro: A&OX3, contracted BLE's; able to move BUE's Psych: appropriate speech pattern/content Skin: dry lips HEENT: EOMI, dry MMM, R neck incision well healed. No goiter. Heart: RRR, no m/r/g, mildly tachycardic Lungs: CTAB GI: abdomen is soft, nontender, nondistended Extremities: no e/c/c BLE's; 1+ pedal pulses B; contracted Results Last Vital Signs Temp 36.9 C 09/14/18 16:40 Pulse 112 H 09/14/18 16:40 Resp 12 09/14/18 16:40 BP 105/74 09/14/18 16:40 Pulse Ox 100 09/14/18 16:40 Labs : 09/14/18 13:50 09/14/18 13:50 Laboratory Results - last 24 hr 09/14/18 09/14/18 09/14/18 13:50 13:50 13:50 WBC 4.38 L D RBC 2.16 L Hgb 6.5 L* Hct 20.7 L* MCV 95.8 H MCH 30.1 MCHC 31.4 L RDW 15.5 H Plt Count 289 MPV 10.8 Immature Gran % 0.0 Neutrophils % 67.8 Lymphocytes % 20.5 Monocytes % 5.3 Eosinophils % 5.7 Basophils % 0.7 Absolute Neutrophils 2.97 Absolute Lymphocytes 0.90 L Absolute Monocytes 0.23 Absolute Eosinophils 0.25 Absolute Basophils 0.03 Differential Comment Rbc morph reviewed RBC Morphology See below Polychromasia Present Hypochromasia 1+ Anisocytosis 1+ Microcytosis 1+ Macrocytosis 1+ PT 10.4 INR 1.0 APTT 22.9 Sodium 138 Potassium 3.6 Chloride 101 Carbon Dioxide 31.2 Anion Gap 5.8 BUN 10 Creatinine 0.59 Estimated GFR/1.73 m2 >= 60.00 Glucose 117 H Calcium 8.6 Total Bilirubin 0.1 L AST 14 L ALT 24 Alkaline Phosphatase 118 H Total Protein 7.6 Albumin 2.9 L US pelvis: Heterogeneous avascular material centered in the endometrial canal. Differential considerations include hemorrhage/blood products, infection. Mass cannot be excluded. Gynecologic consult is recommended for further evaluation.
[2018-09-14] MEDS: Normal Saline 1,000 ML 100 ML IV (18:31)
[2018-09-14] MEDS: clonazePAM 1 MG TAB PO (19:42)
[2018-09-14] MEDS: Baclofen 10 MG TAB 30 MG PO (20:46)
[2018-09-14] MEDS: Pregabalin 25 MG CAP 75 MG PO (20:48)
[2018-09-15] VITALS (177 sets, daily range): BP systolic 86–133; BP diastolic 30–82; PULSE 81–127; RESP 7–29; TEMP 36.1–37.3; O2SAT 0–100
[2018-09-15] MEDS: Acetaminophen 325 MG TAB 650 MG PO ×2 (05:18→11:53)
[2018-09-15] MEDS: Normal Saline 1,000 ML 100 ML IV (07:00)
[2018-09-15 07:14] LABS: Abs Immature Grans 0.01 k/cumm (0.0-0.09); Absolute Basophil Count 0.03 k/cumm (0.0-0.2); Absolute Eosinophil Count 0.16 k/cumm (0.0-0.7); Absolute Lymphocyte Count 0.67 k/cumm (1.2-3.4); Absolute Monocyte Count 0.26 k/cumm (0.11-0.7); Absolute Neutrophil Count 3.12 k/cumm (1.2-6.7); Basophils % 0.7; Eosinophils % 3.8; Immature Grans % 0.2; Lymphocytes % 15.8; Mean Corp. HGB Concentration 31.1 g/dL (32.0-36.0); Mean Corpuscular Hemoglobin 30.3 pg (27.0-33.0); Mean Corpuscular Volume 97.4 fL (80-95); Mean Platelet Volume 11.1 fL (8.0-11.0); Monocytes % 6.1; Neutrophils % 73.4; Platelet Count 234 x1000/uL (130-400); RBC 1.52 m/cumm (4.00-5.20); White Blood Cell Count 4.25 k/cumm (4.4-10.8)
[2018-09-15 07:21] LABS: Anion Gap 7.7 mmol/L (3-11); BUN 12 mg/dL (7-18); CO2 26.3 mmol/L (21.0-32.0); CREATININE 0.58 mg/dL (0.55-1.02); Calcium 8.2 mg/dL (8.5-10.1); Chloride 105 mmol/L (98-107); Glucose 123 mg/dL (70-100); HCT 14.8 % (36.0-46.0); HGB 4.6 g/dL (12.0-15.5); Magnesium 1.8 mg/dL (1.8-2.4); Potassium 3.6 mmol/L (3.5-5.1); Sodium 139 mmol/L (136-145)
[2018-09-15 07:22] LABS: Reticulocyte 6.1 % (0.5-2.4)
[2018-09-15 07:40] LABS: Ferritin 103 ng/mL (8-388); TSH 4.14 uIU/mL (0.358-3.74)
[2018-09-15 07:44] LABS: Iron 35 ug/dL (50-175); Total Iron Binding Capacity 187 ug/dL (250-450)
[2018-09-15 07:50] LABS: Folate > 20.0 ng/mL (8.6-20.0)
[2018-09-15 07:59] LABS: Vitamin B12 520 pg/mL (193-986)
[2018-09-15 08:31] LABS: Bilirubin Negative (Negative); Blood Moderate (Negative); Clarity Cloudy; Glucose Negative (Negative); Ketones Negative (Negative); Leukocyte Esterase Small (Negative); Nitrite Positive (Negative); Specific Gravity >= 1.030 (1.005-1.025); Urobilinogen 0.2 EU/dL (Up TO 0.2)
[2018-09-15 08:44] LABS: C & S Indicated? Yes; WBC >50 HPF (0-5)
[2018-09-15 08:46] LABS: HCG Qual (Urine) Negative
--- NOTE | 2018-09-15 08:51 | W.PM.PROGNOT ---
Date of Service Date of service: 09/15/18 Time of Service: 08:52 Assessment and Plan (1) Blood loss anemia: Current visit: Yes Status: Acute Plan is to transfuse 4 units of packed red blood cells and 6 pack of platelets. We will reassess her H&H and coags after the fourth unit is infused. The anemia will continue unless her uterine bleeding is controlled. Currently we have been in touch with [facility] and [facility] regarding management of the patient's care. We will continue to follow closely. (2) Abnormal uterine bleeding: Current visit: Yes Status: Acute Trans-Saroj acid and IV Premarin administered patient is continuing to have a repeat blood replacement continue to follow bleeding with medical management. Subjective Interval history since last seen: Doesnt feel well. 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 Admitted through the [facility] ED on 09/14/18 to the Cable Engineer service. IV hydration initiated and Hospitalist consulted. Her last dose of Eliquist was given the evening of 09/13/18. On admission 09/14/18 H/H 6.5/20.7 [id number]. Retic count 6.1, Nl coags. Low TIBC and low ferritin. In past 24hrs her H/H declined to 4.6/14.8. Uterine bleeding has been constant, avg flow no clots. This morning decision was made to transfer her to ICU and place central line. After extensive counseling with the pt regarding the grave nature of her anemia she consented to receive blood products. 4 units of PRBC have been ordered. Initial unit is currently hanging. Plt have been ordered. She has received 600mg of IV Tranexamic Acid IV and 25mg of IV Premarin. Lastly Levothyroxine 50mcg has been ordered. Attempt to tranfer pt to tertiary care center initiated this AM. No available ICU beds at [facility] or [facility] [place] [facility]. Plan is to replace blood products. Follow bleeding and continue to arrange for transfer to higher level of care if needed. 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) Affect: normal affect Objective Objective Clinical Data: Abnormal lab results 09/14/18 09/14/18 09/15/18 Range/Units 13:50 13:50 06:40 WBC 4.38 L D (4.4-10.8) k/cumm RBC 2.16 L (4.00-5.20) m/cumm Hgb 6.5 L* (12.0-15.5) g/dL Hct 20.7 L* (36.0-46.0) % MCV 95.8 H (80-95) fL MCHC 31.4 L (32.0-36.0) g/dL RDW 15.5 H (11.7-14.6) % MPV (8.0-11.0) fL Absolute Lymphocytes 0.90 L (1.2-3.4) k/cumm Retic Count (0.5-2.4) % Glucose 117 H (70-100) mg/dL Calcium (8.5-10.1) mg/dL Iron 35 L (50-175) ug/dL TIBC 187 L (250-450) ug/dL Total Bilirubin 0.1 L (0.2-1.0) mg/dL AST 14 L (15-37) U/L Alkaline Phosphatase 118 H (46-116) U/L Albumin 2.9 L (3.4-5.0) g/dL Folate (8.6-20.0) ng/mL TSH (0.358-3.74) uIU/mL Ur Specific [place] (1.005-1.025) Urine Protein (Negative) mg/dL Urine Blood (Negative) Urine Nitrite (Negative) Ur Leukocyte Esterase (Negative) 09/15/18 09/15/18 09/15/18 Range/Units 06:40 06:40 06:40 WBC (4.4-10.8) k/cumm RBC (4.00-5.20) m/cumm Hgb (12.0-15.5) g/dL Hct (36.0-46.0) % MCV (80-95) fL MCHC (32.0-36.0) g/dL RDW (11.7-14.6) % MPV (8.0-11.0) fL Absolute Lymphocytes (1.2-3.4) k/cumm Retic Count 6.1 H (0.5-2.4) % Glucose 123 H (70-100) mg/dL Calcium 8.2 L (8.5-10.1) mg/dL Iron (50-175) ug/dL TIBC (250-450) ug/dL Total Bilirubin (0.2-1.0) mg/dL AST (15-37) U/L Alkaline Phosphatase (46-116) U/L Albumin (3.4-5.0) g/dL Folate > 20.0 H (8.6-20.0) ng/mL TSH 4.14 H (0.358-3.74) uIU/mL Ur Specific [place] (1.005-1.025) Urine Protein (Negative) mg/dL Urine Blood (Negative) Urine Nitrite (Negative) Ur Leukocyte Esterase (Negative) 09/15/18 09/15/18 Range/Units 06:40 08:20 WBC 4.25 L (4.4-10.8) k/cumm RBC 1.52 L (4.00-5.20) m/cumm Hgb 4.6 L* (12.0-15.5) g/dL Hct 14.8 L* D (36.0-46.0) % MCV 97.4 H (80-95) fL MCHC 31.1 L (32.0-36.0) g/dL RDW 16.0 H (11.7-14.6) % MPV 11.1 H (8.0-11.0) fL Absolute Lymphocytes 0.67 L (1.2-3.4) k/cumm Retic Count (0.5-2.4) % Glucose (70-100) mg/dL Calcium (8.5-10.1) mg/dL Iron (50-175) ug/dL TIBC (250-450) ug/dL Total Bilirubin (0.2-1.0) mg/dL AST (15-37) U/L Alkaline Phosphatase (46-116) U/L Albumin (3.4-5.0) g/dL Folate (8.6-20.0) ng/mL TSH (0.358-3.74) uIU/mL Ur Specific [place] >= 1.030 H (1.005-1.025) Urine Protein >=300 H (Negative) mg/dL Urine Blood Moderate H (Negative) Urine Nitrite Positive H (Negative) Ur Leukocyte Esterase Small H (Negative) Vital Signs Temperature 98.8 F 09/15/18 03:55 Temperature Source Skin 09/15/18 03:55 Pulse 109 H 09/15/18 03:55 Pulse Rhythm Regular 09/15/18 07:35 Respiratory Rate 18 09/15/18 03:55 Respiratory Effort 09/15/18 07:35 Respiratory Depth Normal 09/15/18 07:35 Respiratory Pattern Normal 09/15/18 07:35 Blood Pressure 96/60 L 09/15/18 03:55 Blood Pressure Mean 82 09/14/18 13:48 Blood Pressure Position Supine 09/14/18 13:55 Pulse Oximetry 100 09/15/18 03:55 Oxygen Delivery Method Room Air 09/15/18 03:55 Oxygen Flow Rate 0 09/15/18 03:55 Pain Level 3 09/15/18 05:18 Comment 09/15/18 03:55 Intake & Output 09/14/18 09/14/18 09/15/18 11:59 23:59 11:59 Intake Total 481.667 / 481.667 718.333 / 718.333 Balance 481.667 / 481.667 718.333 / 718.333 Weight 126 lb 0.013 oz 126 lb 0.013 oz Intake: IV 481.667 / 481.667 518.333 / 518.333 Oral 200 / 200 Other: Urine Color Yellow Urine Appearance Clear Comment pt on menses CHECKED FOR INCONTINENCE ONE MORE TIME PRIOR TO END OF SHIFT. NO URINE IN DIAPER AND NO BLOOD NOTED AT THIS TIME. Voiding Methods Diaper Diaper Incontinent Laboratory Results WBC 4.25 k/cumm (4.4-10.8) L 09/15/18 06:40 RBC 1.52 m/cumm (4.00-5.20) L 09/15/18 06:40 Hgb 4.6 g/dL (12.0-15.5) L* 09/15/18 06:40 Hct 14.8 % (36.0-46.0) L* D 09/15/18 06:40 MCV 97.4 fL (80-95) H 09/15/18 06:40 MCH 30.3 pg (27.0-33.0) 09/15/18 06:40 MCHC 31.1 g/dL (32.0-36.0) L 09/15/18 06:40 RDW 16.0 % (11.7-14.6) H 09/15/18 06:40 Plt Count 234 x1000/uL (130-400) 09/15/18 06:40 MPV 11.1 fL (8.0-11.0) H 09/15/18 06:40 Immature Gran % 0.2 09/15/18 06:40 Neutrophils % 73.4 09/15/18 06:40 Lymphocytes % 15.8 09/15/18 06:40 Monocytes % 6.1 09/15/18 06:40 Eosinophils % 3.8 09/15/18 06:40 Basophils % 0.7 09/15/18 06:40 Absolute Neutrophils 3.12 k/cumm (1.2-6.7) 09/15/18 06:40 Absolute Lymphocytes 0.67 k/cumm (1.2-3.4) L 09/15/18 06:40 Absolute Monocytes 0.26 k/cumm (0.11-0.7) 09/15/18 06:40 Absolute Eosinophils 0.16 k/cumm (0.0-0.7) 09/15/18 06:40 Absolute Basophils 0.03 k/cumm (0.0-0.2) 09/15/18 06:40 Differential Comment Rbc morph reviewed 09/14/18 13:50 RBC Morphology See below 09/14/18 13:50 Polychromasia Present 09/14/18 13:50 Hypochromasia 1+ 09/14/18 13:50 Anisocytosis 1+ 09/14/18 13:50 Microcytosis 1+ 09/14/18 13:50 Macrocytosis 1+ 09/14/18 13:50 Retic Count 6.1 % (0.5-2.4) H 09/15/18 06:40 PT 10.4 sec (9.3-11.0) 09/14/18 13:50 INR 1.0 (0.9-1.1) 09/14/18 13:50 APTT 22.9 sec (21.0-31.4) 09/14/18 13:50 Sodium 139 mmol/L (136-145) 09/15/18 06:40 Potassium 3.6 mmol/L (3.5-5.1) 09/15/18 06:40 Chloride 105 mmol/L (98-107) 09/15/18 06:40 Carbon Dioxide 26.3 mmol/L (21.0-32.0) 09/15/18 06:40 Anion Gap 7.7 mmol/L (3-11) 09/15/18 06:40 BUN 12 mg/dL (7-18) 09/15/18 06:40 Creatinine 0.58 mg/dL (0.55-1.02) 09/15/18 06:40 Estimated GFR/1.73 m2 >= 60.00 (mL/min/1.73m2) 09/15/18 06:40 Glucose 123 mg/dL (70-100) H 09/15/18 06:40 Calcium 8.2 mg/dL (8.5-10.1) L 09/15/18 06:40 Magnesium 1.8 mg/dL (1.8-2.4) 09/15/18 06:40 Iron 35 ug/dL (50-175) L 09/15/18 06:40 TIBC 187 ug/dL (250-450) L 09/15/18 06:40 Ferritin 103 ng/mL (8-388) 09/15/18 06:40 Total Bilirubin 0.1 mg/dL (0.2-1.0) L 09/14/18 13:50 AST 14 U/L (15-37) L 09/14/18 13:50 ALT 24 U/L (12-78) 09/14/18 13:50 Alkaline Phosphatase 118 U/L (46-116) H 09/14/18 13:50 Total Protein 7.6 g/dL (6.4-8.2) 09/14/18 13:50 Albumin 2.9 g/dL (3.4-5.0) L 09/14/18 13:50 Vitamin B12 520 pg/mL (193-986) 09/15/18 06:40 Folate > 20.0 ng/mL (8.6-20.0) H 09/15/18 06:40 TSH 4.14 uIU/mL (0.358-3.74) H 09/15/18 06:40 Urine Color Yellow (Yellow) 09/15/18 08:20 Urine Clarity Cloudy 09/15/18 08:20 Urine pH 6.0 (5-8) 09/15/18 08:20 Ur Specific [place] >= 1.030 (1.005-1.025) H 09/15/18 08:20 Urine Protein >=300 mg/dL (Negative) H 09/15/18 08:20 Urine Ketones Negative mg/dL (Negative) 09/15/18 08:20 Urine Blood Moderate (Negative) H 09/15/18 08:20 Urine Nitrite Positive (Negative) H 09/15/18 08:20 Urine Bilirubin Negative (Negative) 09/15/18 08:20 Urine Urobilinogen 0.2 EU/dL (Up TO 0.2) 09/15/18 08:20 Ur Leukocyte Esterase Small (Negative) H 09/15/18 08:20 Urine RBC Not Applicable 09/15/18 08:20 Urine WBC >50 HPF (0-5) 09/15/18 08:20 Ur Epithelial Cells Not Applicable 09/15/18 08:20 Urine Crystals Not Applicable 09/15/18 08:20 Urine Bacteria Not Applicable 09/15/18 08:20 Urine Mucus Not Applicable 09/15/18 08:20 Ur Culture Indicated? Yes 09/15/18 08:20 Urine Glucose Negative mg/dL (Negative) 09/15/18 08:20 Urine HCG, Qual Negative 09/15/18 08:20 Reviewed Pertinent PMH: Yes
--- NOTE | 2018-09-15 08:55 | PGE_ITS ---
Date of Service Date of service: 09/15/18 Time of Service: 08:52 Assessment and Plan (1) Blood loss anemia: Current visit: Yes Status: Acute Plan is to transfuse 4 units of packed red blood cells and 6 pack of platelets. We will reassess her H&H and coags after the fourth unit is infused. The anemia will continue unless her uterine bleeding is controlled. Currently we have been in touch with [facility] and [facility] regarding management of the patient's care. We will continue to follow closely. (2) Abnormal uterine bleeding: Current visit: Yes Status: Acute Trans-Saroj acid and IV Premarin administered patient is continuing to have a repeat blood replacement continue to follow bleeding with medical management. Subjective Interval history since last seen: Doesnt feel well. 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 Admitted through the [facility] ED on 09/14/18 to the Metal Polisher And Buffer Apprentice service. IV hydration initiated and Hospitalist consulted. Her last dose of Eliquist was given the evening of 09/13/18. On admission 09/14/18 H/H 6.5/20.7 [id number]. Retic count 6.1, Nl coags. Low TIBC and low ferritin. In past 24hrs her H/H declined to 4.6/14.8. Uterine bleeding has been constant, avg flow no clots. This morning decision was made to transfer her to ICU and place central line. After extensive counseling with the pt regarding the grave nature of her anemia she consented to receive blood products. 4 units of PRBC have been ordered. Initial unit is currently hanging. Plt have been ordered. She has received 600mg of IV Tranexamic Acid IV and 25mg of IV Premarin. Lastly Levothyroxine 50mcg has been ordered. Attempt to tranfer pt to tertiary care center initiated this AM. No available ICU beds at [facility] or [facility]. Plan is to replace blood products. Follow bleeding and continue to arrange for transfer to higher level of care if needed. 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) Affect: normal affect Objective Objective Clinical Data: Abnormal lab results 09/14/18 09/14/18 09/15/18 Range/Units 13:50 13:50 06:40 WBC 4.38 L D (4.4-10.8) k/cumm RBC 2.16 L (4.00-5.20) m/cumm Hgb 6.5 L* (12.0-15.5) g/dL Hct 20.7 L* (36.0-46.0) % MCV 95.8 H (80-95) fL MCHC 31.4 L (32.0-36.0) g/dL RDW 15.5 H (11.7-14.6) % MPV (8.0-11.0) fL Absolute Lymphocytes 0.90 L (1.2-3.4) k/cumm Retic Count (0.5-2.4) % Glucose 117 H (70-100) mg/dL Calcium (8.5-10.1) mg/dL Iron 35 L (50-175) ug/dL TIBC 187 L (250-450) ug/dL Total Bilirubin 0.1 L (0.2-1.0) mg/dL AST 14 L (15-37) U/L Alkaline Phosphatase 118 H (46-116) U/L Albumin 2.9 L (3.4-5.0) g/dL Folate (8.6-20.0) ng/mL TSH (0.358-3.74) uIU/mL Ur Specific [place] (1.005-1.025) Urine Protein (Negative) mg/dL Urine Blood (Negative) Urine Nitrite (Negative) Ur Leukocyte Esterase (Negative) 09/15/18 09/15/18 09/15/18 Range/Units 06:40 06:40 06:40 WBC (4.4-10.8) k/cumm RBC (4.00-5.20) m/cumm Hgb (12.0-15.5) g/dL Hct (36.0-46.0) % MCV (80-95) fL MCHC (32.0-36.0) g/dL RDW (11.7-14.6) % MPV (8.0-11.0) fL Absolute Lymphocytes (1.2-3.4) k/cumm Retic Count 6.1 H (0.5-2.4) % Glucose 123 H (70-100) mg/dL Calcium 8.2 L (8.5-10.1) mg/dL Iron (50-175) ug/dL TIBC (250-450) ug/dL Total Bilirubin (0.2-1.0) mg/dL AST (15-37) U/L Alkaline Phosphatase (46-116) U/L Albumin (3.4-5.0) g/dL Folate > 20.0 H (8.6-20.0) ng/mL TSH 4.14 H (0.358-3.74) uIU/mL Ur Specific [place] (1.005-1.025) Urine Protein (Negative) mg/dL Urine Blood (Negative) Urine Nitrite (Negative) Ur Leukocyte Esterase (Negative) 09/15/18 09/15/18 Range/Units 06:40 08:20 WBC 4.25 L (4.4-10.8) k/cumm RBC 1.52 L (4.00-5.20) m/cumm Hgb 4.6 L* (12.0-15.5) g/dL Hct 14.8 L* D (36.0-46.0) % MCV 97.4 H (80-95) fL MCHC 31.1 L (32.0-36.0) g/dL RDW 16.0 H (11.7-14.6) % MPV 11.1 H (8.0-11.0) fL Absolute Lymphocytes 0.67 L (1.2-3.4) k/cumm Retic Count (0.5-2.4) % Glucose (70-100) mg/dL Calcium (8.5-10.1) mg/dL Iron (50-175) ug/dL TIBC (250-450) ug/dL Total Bilirubin (0.2-1.0) mg/dL AST (15-37) U/L Alkaline Phosphatase (46-116) U/L Albumin (3.4-5.0) g/dL Folate (8.6-20.0) ng/mL TSH (0.358-3.74) uIU/mL Ur Specific [place] >= 1.030 H (1.005-1.025) Urine Protein >=300 H (Negative) mg/dL Urine Blood Moderate H (Negative) Urine Nitrite Positive H (Negative) Ur Leukocyte Esterase Small H (Negative) Vital Signs Temperature 98.8 F 09/15/18 03:55 Temperature Source Skin 09/15/18 03:55 Pulse 109 H 09/15/18 03:55 Pulse Rhythm Regular 09/15/18 07:35 Respiratory Rate 18 09/15/18 03:55 Respiratory Effort 09/15/18 07:35 Respiratory Depth Normal 09/15/18 07:35 Respiratory Pattern Normal 09/15/18 07:35 Blood Pressure 96/60 L 09/15/18 03:55 Blood Pressure Mean 82 09/14/18 13:48 Blood Pressure Position Supine 09/14/18 13:55 Pulse Oximetry 100 09/15/18 03:55 Oxygen Delivery Method Room Air 09/15/18 03:55 Oxygen Flow Rate 0 09/15/18 03:55 Pain Level 3 09/15/18 05:18 Comment 09/15/18 03:55 Intake & Output 09/14/18 09/14/18 09/15/18 11:59 23:59 11:59 Intake Total 481.667 / 481.667 718.333 / 718.333 Balance 481.667 / 481.667 718.333 / 718.333 Weight 126 lb 0.013 oz 126 lb 0.013 oz Intake: IV 481.667 / 481.667 518.333 / 518.333 Oral 200 / 200 Other: Urine Color Yellow Urine Appearance Clear Comment pt on menses CHECKED FOR INCONTINENCE ONE MORE TIME PRIOR TO END OF SHIFT. NO URINE IN DIAPER AND NO BLOOD NOTED AT THIS TIME. Voiding Methods Diaper Diaper Incontinent Laboratory Results WBC 4.25 k/cumm (4.4-10.8) L 09/15/18 06:40 RBC 1.52 m/cumm (4.00-5.20) L 09/15/18 06:40 Hgb 4.6 g/dL (12.0-15.5) L* 09/15/18 06:40 Hct 14.8 % (36.0-46.0) L* D 09/15/18 06:40 MCV 97.4 fL (80-95) H 09/15/18 06:40 MCH 30.3 pg (27.0-33.0) 09/15/18 06:40 MCHC 31.1 g/dL (32.0-36.0) L 09/15/18 06:40 RDW 16.0 % (11.7-14.6) H 09/15/18 06:40 Plt Count 234 x1000/uL (130-400) 09/15/18 06:40 MPV 11.1 fL (8.0-11.0) H 09/15/18 06:40 Immature Gran % 0.2 09/15/18 06:40 Neutrophils % 73.4 09/15/18 06:40 Lymphocytes % 15.8 09/15/18 06:40 Monocytes % 6.1 09/15/18 06:40 Eosinophils % 3.8 09/15/18 06:40 Basophils % 0.7 09/15/18 06:40 Absolute Neutrophils 3.12 k/cumm (1.2-6.7) 09/15/18 06:40 Absolute Lymphocytes 0.67 k/cumm (1.2-3.4) L 09/15/18 06:40 Absolute Monocytes 0.26 k/cumm (0.11-0.7) 09/15/18 06:40 Absolute Eosinophils 0.16 k/cumm (0.0-0.7) 09/15/18 06:40 Absolute Basophils 0.03 k/cumm (0.0-0.2) 09/15/18 06:40 Differential Comment Rbc morph reviewed 09/14/18 13:50 RBC Morphology See below 09/14/18 13:50 Polychromasia Present 09/14/18 13:50 Hypochromasia 1+ 09/14/18 13:50 Anisocytosis 1+ 09/14/18 13:50 Microcytosis 1+ 09/14/18 13:50 Macrocytosis 1+ 09/14/18 13:50 Retic Count 6.1 % (0.5-2.4) H 09/15/18 06:40 PT 10.4 sec (9.3-11.0) 09/14/18 13:50 INR 1.0 (0.9-1.1) 09/14/18 13:50 APTT 22.9 sec (21.0-31.4) 09/14/18 13:50 Sodium 139 mmol/L (136-145) 09/15/18 06:40 Potassium 3.6 mmol/L (3.5-5.1) 09/15/18 06:40 Chloride 105 mmol/L (98-107) 09/15/18 06:40 Carbon Dioxide 26.3 mmol/L (21.0-32.0) 09/15/18 06:40 Anion Gap 7.7 mmol/L (3-11) 09/15/18 06:40 BUN 12 mg/dL (7-18) 09/15/18 06:40 Creatinine 0.58 mg/dL (0.55-1.02) 09/15/18 06:40 Estimated GFR/1.73 m2 >= 60.00 (mL/min/1.73m2) 09/15/18 06:40 Glucose 123 mg/dL (70-100) H 09/15/18 06:40 Calcium 8.2 mg/dL (8.5-10.1) L 09/15/18 06:40 Magnesium 1.8 mg/dL (1.8-2.4) 09/15/18 06:40 Iron 35 ug/dL (50-175) L 09/15/18 06:40 TIBC 187 ug/dL (250-450) L 09/15/18 06:40 Ferritin 103 ng/mL (8-388) 09/15/18 06:40 Total Bilirubin 0.1 mg/dL (0.2-1.0) L 09/14/18 13:50 AST 14 U/L (15-37) L 09/14/18 13:50 ALT 24 U/L (12-78) 09/14/18 13:50 Alkaline Phosphatase 118 U/L (46-116) H 09/14/18 13:50 Total Protein 7.6 g/dL (6.4-8.2) 09/14/18 13:50 Albumin 2.9 g/dL (3.4-5.0) L 09/14/18 13:50 Vitamin B12 520 pg/mL (193-986) 09/15/18 06:40 Folate > 20.0 ng/mL (8.6-20.0) H 09/15/18 06:40 TSH 4.14 uIU/mL (0.358-3.74) H 09/15/18 06:40 Urine Color Yellow (Yellow) 09/15/18 08:20 Urine Clarity Cloudy 09/15/18 08:20 Urine pH 6.0 (5-8) 09/15/18 08:20 Ur Specific [place] >= 1.030 (1.005-1.025) H 09/15/18 08:20 Urine Protein >=300 mg/dL (Negative) H 09/15/18 08:20 Urine Ketones Negative mg/dL (Negative) 09/15/18 08:20 Urine Blood Moderate (Negative) H 09/15/18 08:20 Urine Nitrite Positive (Negative) H 09/15/18 08:20 Urine Bilirubin Negative (Negative) 09/15/18 08:20 Urine Urobilinogen 0.2 EU/dL (Up TO 0.2) 09/15/18 08:20 Ur Leukocyte Esterase Small (Negative) H 09/15/18 08:20 Urine RBC Not Applicable 09/15/18 08:20 Urine WBC >50 HPF (0-5) 09/15/18 08:20 Ur Epithelial Cells Not Applicable 09/15/18 08:20 Urine Crystals Not Applicable 09/15/18 08:20 Urine Bacteria Not Applicable 09/15/18 08:20 Urine Mucus Not Applicable 09/15/18 08:20 Ur Culture Indicated? Yes 09/15/18 08:20 Urine Glucose Negative mg/dL (Negative) 09/15/18 08:20 Urine HCG, Qual Negative 09/15/18 08:20 Reviewed Pertinent PMH: Yes
--- NOTE | 2018-09-15 09:08 | W.PM.PROGNOT ---
Date of Service Date of service: 09/15/18 Time of Service: 09:09 Assessment and Plan (1) Blood loss anemia: Current visit: Yes Status: Acute (2) Abnormal uterine bleeding: Current visit: Yes Status: Acute Plan to proceed with D&C, Bakri balloon placement, and possible Novasure. We had a discussion with the patient regarding administration of blood products and the patient refuses under any circumstances. Plan to proceed with D&C, Possible bakri baloon placement, and possible Novasure. Risks of surgery were reviewed. All questions were answered and consent was obtained. The patient is also given IV tranexamic acid. IV premarin not available at this facility. Subjective Interval history since last seen: Patient had moderate vaginal bleeding this morning. She does feel more fatigued. Last hgb returned 4.5. [place] [facility] was attempted and no beds are immediately available. Because the patient is a Rastafari she adamantly declines any blood products. I reviewed options with the patient and will proceed with D&C, possible Bakri balloon placement and possible novasure. Objective Objective Clinical Data: Abnormal lab results 09/14/18 09/14/18 09/15/18 Range/Units 13:50 13:50 06:40 WBC 4.38 L D (4.4-10.8) k/cumm RBC 2.16 L (4.00-5.20) m/cumm Hgb 6.5 L* (12.0-15.5) g/dL Hct 20.7 L* (36.0-46.0) % MCV 95.8 H (80-95) fL MCHC 31.4 L (32.0-36.0) g/dL RDW 15.5 H (11.7-14.6) % MPV (8.0-11.0) fL Absolute Lymphocytes 0.90 L (1.2-3.4) k/cumm Retic Count (0.5-2.4) % Glucose 117 H (70-100) mg/dL Calcium (8.5-10.1) mg/dL Iron 35 L (50-175) ug/dL TIBC 187 L (250-450) ug/dL Total Bilirubin 0.1 L (0.2-1.0) mg/dL AST 14 L (15-37) U/L Alkaline Phosphatase 118 H (46-116) U/L Albumin 2.9 L (3.4-5.0) g/dL Folate (8.6-20.0) ng/mL TSH (0.358-3.74) uIU/mL Ur Specific [place] (1.005-1.025) Urine Protein (Negative) mg/dL Urine Blood (Negative) Urine Nitrite (Negative) Ur Leukocyte Esterase (Negative) 09/15/18 09/15/18 09/15/18 Range/Units 06:40 06:40 06:40 WBC (4.4-10.8) k/cumm RBC (4.00-5.20) m/cumm Hgb (12.0-15.5) g/dL Hct (36.0-46.0) % MCV (80-95) fL MCHC (32.0-36.0) g/dL RDW (11.7-14.6) % MPV (8.0-11.0) fL Absolute Lymphocytes (1.2-3.4) k/cumm Retic Count 6.1 H (0.5-2.4) % Glucose 123 H (70-100) mg/dL Calcium 8.2 L (8.5-10.1) mg/dL Iron (50-175) ug/dL TIBC (250-450) ug/dL Total Bilirubin (0.2-1.0) mg/dL AST (15-37) U/L Alkaline Phosphatase (46-116) U/L Albumin (3.4-5.0) g/dL Folate > 20.0 H (8.6-20.0) ng/mL TSH 4.14 H (0.358-3.74) uIU/mL Ur Specific [place] (1.005-1.025) Urine Protein (Negative) mg/dL Urine Blood (Negative) Urine Nitrite (Negative) Ur Leukocyte Esterase (Negative) 09/15/18 09/15/18 Range/Units 06:40 08:20 WBC 4.25 L (4.4-10.8) k/cumm RBC 1.52 L (4.00-5.20) m/cumm Hgb 4.6 L* (12.0-15.5) g/dL Hct 14.8 L* D (36.0-46.0) % MCV 97.4 H (80-95) fL MCHC 31.1 L (32.0-36.0) g/dL RDW 16.0 H (11.7-14.6) % MPV 11.1 H (8.0-11.0) fL Absolute Lymphocytes 0.67 L (1.2-3.4) k/cumm Retic Count (0.5-2.4) % Glucose (70-100) mg/dL Calcium (8.5-10.1) mg/dL Iron (50-175) ug/dL TIBC (250-450) ug/dL Total Bilirubin (0.2-1.0) mg/dL AST (15-37) U/L Alkaline Phosphatase (46-116) U/L Albumin (3.4-5.0) g/dL Folate (8.6-20.0) ng/mL TSH (0.358-3.74) uIU/mL Ur Specific [place] >= 1.030 H (1.005-1.025) Urine Protein >=300 H (Negative) mg/dL Urine Blood Moderate H (Negative) Urine Nitrite Positive H (Negative) Ur Leukocyte Esterase Small H (Negative) Vital Signs Temperature 98.2 F 09/15/18 07:45 Temperature Source Tympanic 09/15/18 07:45 Pulse 104 H 09/15/18 07:45 Pulse Rhythm Regular 09/15/18 07:35 Respiratory Rate 20 09/15/18 07:45 Respiratory Effort 09/15/18 07:35 Respiratory Depth Normal 09/15/18 07:35 Respiratory Pattern Normal 09/15/18 07:35 Blood Pressure 95/62 L 09/15/18 07:45 Blood Pressure Mean 82 09/14/18 13:48 Blood Pressure Position Supine 09/14/18 13:55 Pulse Oximetry 100 09/15/18 07:45 Oxygen Delivery Method Nasal Cannula 09/15/18 07:45 Oxygen Flow Rate 2 09/15/18 07:45 Pain Level 0 09/15/18 07:45 Comment 09/15/18 07:45 Intake & Output 09/14/18 09/14/18 09/15/18 11:59 23:59 11:59 Intake Total 481.667 / 481.667 718.333 / 718.333 Balance 481.667 / 481.667 718.333 / 718.333 Weight 126 lb 0.013 oz 126 lb 0.013 oz Intake: IV 481.667 / 481.667 518.333 / 518.333 Oral 200 / 200 Other: Urine Color Yellow Urine Appearance Clear Comment pt on menses CHECKED FOR INCONTINENCE ONE MORE TIME PRIOR TO END OF SHIFT. NO URINE IN DIAPER AND NO BLOOD NOTED AT THIS TIME. Voiding Methods Diaper Diaper Incontinent Laboratory Results WBC 4.25 k/cumm (4.4-10.8) L 09/15/18 06:40 RBC 1.52 m/cumm (4.00-5.20) L 09/15/18 06:40 Hgb 4.6 g/dL (12.0-15.5) L* 09/15/18 06:40 Hct 14.8 % (36.0-46.0) L* D 09/15/18 06:40 MCV 97.4 fL (80-95) H 09/15/18 06:40 MCH 30.3 pg (27.0-33.0) 09/15/18 06:40 MCHC 31.1 g/dL (32.0-36.0) L 09/15/18 06:40 RDW 16.0 % (11.7-14.6) H 09/15/18 06:40 Plt Count 234 x1000/uL (130-400) 09/15/18 06:40 MPV 11.1 fL (8.0-11.0) H 09/15/18 06:40 Immature Gran % 0.2 09/15/18 06:40 Neutrophils % 73.4 09/15/18 06:40 Lymphocytes % 15.8 09/15/18 06:40 Monocytes % 6.1 09/15/18 06:40 Eosinophils % 3.8 09/15/18 06:40 Basophils % 0.7 09/15/18 06:40 Absolute Neutrophils 3.12 k/cumm (1.2-6.7) 09/15/18 06:40 Absolute Lymphocytes 0.67 k/cumm (1.2-3.4) L 09/15/18 06:40 Absolute Monocytes 0.26 k/cumm (0.11-0.7) 09/15/18 06:40 Absolute Eosinophils 0.16 k/cumm (0.0-0.7) 09/15/18 06:40 Absolute Basophils 0.03 k/cumm (0.0-0.2) 09/15/18 06:40 Differential Comment Rbc morph reviewed 09/14/18 13:50 RBC Morphology See below 09/14/18 13:50 Polychromasia Present 09/14/18 13:50 Hypochromasia 1+ 09/14/18 13:50 Anisocytosis 1+ 09/14/18 13:50 Microcytosis 1+ 09/14/18 13:50 Macrocytosis 1+ 09/14/18 13:50 Retic Count 6.1 % (0.5-2.4) H 09/15/18 06:40 PT 10.4 sec (9.3-11.0) 09/14/18 13:50 INR 1.0 (0.9-1.1) 09/14/18 13:50 APTT 22.9 sec (21.0-31.4) 09/14/18 13:50 Sodium 139 mmol/L (136-145) 09/15/18 06:40 Potassium 3.6 mmol/L (3.5-5.1) 09/15/18 06:40 Chloride 105 mmol/L (98-107) 09/15/18 06:40 Carbon Dioxide 26.3 mmol/L (21.0-32.0) 09/15/18 06:40 Anion Gap 7.7 mmol/L (3-11) 09/15/18 06:40 BUN 12 mg/dL (7-18) 09/15/18 06:40 Creatinine 0.58 mg/dL (0.55-1.02) 09/15/18 06:40 Estimated GFR/1.73 m2 >= 60.00 (mL/min/1.73m2) 09/15/18 06:40 Glucose 123 mg/dL (70-100) H 09/15/18 06:40 Calcium 8.2 mg/dL (8.5-10.1) L 09/15/18 06:40 Magnesium 1.8 mg/dL (1.8-2.4) 09/15/18 06:40 Iron 35 ug/dL (50-175) L 09/15/18 06:40 TIBC 187 ug/dL (250-450) L 09/15/18 06:40 Ferritin 103 ng/mL (8-388) 09/15/18 06:40 Total Bilirubin 0.1 mg/dL (0.2-1.0) L 09/14/18 13:50 AST 14 U/L (15-37) L 09/14/18 13:50 ALT 24 U/L (12-78) 09/14/18 13:50 Alkaline Phosphatase 118 U/L (46-116) H 09/14/18 13:50 Total Protein 7.6 g/dL (6.4-8.2) 09/14/18 13:50 Albumin 2.9 g/dL (3.4-5.0) L 09/14/18 13:50 Vitamin B12 520 pg/mL (193-986) 09/15/18 06:40 Folate > 20.0 ng/mL (8.6-20.0) H 09/15/18 06:40 TSH 4.14 uIU/mL (0.358-3.74) H 09/15/18 06:40 Urine Color Yellow (Yellow) 09/15/18 08:20 Urine Clarity Cloudy 09/15/18 08:20 Urine pH 6.0 (5-8) 09/15/18 08:20 Ur Specific [place] >= 1.030 (1.005-1.025) H 09/15/18 08:20 Urine Protein >=300 mg/dL (Negative) H 09/15/18 08:20 Urine Ketones Negative mg/dL (Negative) 09/15/18 08:20 Urine Blood Moderate (Negative) H 09/15/18 08:20 Urine Nitrite Positive (Negative) H 09/15/18 08:20 Urine Bilirubin Negative (Negative) 09/15/18 08:20 Urine Urobilinogen 0.2 EU/dL (Up TO 0.2) 09/15/18 08:20 Ur Leukocyte Esterase Small (Negative) H 09/15/18 08:20 Urine RBC Not Applicable 09/15/18 08:20 Urine WBC >50 HPF (0-5) 09/15/18 08:20 Ur Epithelial Cells Not Applicable 09/15/18 08:20 Urine Crystals Not Applicable 09/15/18 08:20 Urine Bacteria Not Applicable 09/15/18 08:20 Urine Mucus Not Applicable 09/15/18 08:20 Ur Culture Indicated? Yes 09/15/18 08:20 Urine Glucose Negative mg/dL (Negative) 09/15/18 08:20 Urine HCG, Qual Negative 09/15/18 08:20
--- NOTE | 2018-09-15 09:16 | OT.INNT ---
Date of service: 09/15/18 Time of Service: 09:17 Occupational Therapy Notes 09/15/18 OT consult received and pts chart was reviewed. Pt was transferred to the ICU this morning. Due to a decline in medical status , OT will hold on OT services. Pt will require a new OT order in order to see pt at this time. Nadine Jennings OTR/[facility]
[2018-09-15] MEDS: Normal Saline 250 ML IV (10:03)
--- NOTE | 2018-09-15 10:29 | DI.RAD_ITS ---
SYMPTOMS/DIAGNOSIS: LINE PLACEMENT PORTABLE CHEST: Comparison 07/18/18. The heart size and pulmonary vasculature are within normal limits. There has been interval placement of a left subclavian central venous catheter. The tip of the catheter is in good position at the junction of the superior vena cava and right atrium. The lungs appear clear. No pneumothorax or pleural effusion is seen. IMPRESSION: Placement of a left subclavian central venous catheter. The tip of the catheter is in good position at the junction of the superior vena cava and right atrium.
--- NOTE | 2018-09-15 10:38 | W.SURGCON ---
Date of service: 09/15/18 Time of Service: 10:38 Assessment and Plan (1) Hypotension due to blood loss: Current visit: Yes Status: Acute Abnormal uterine bleeding with severe anemia Patient in need of better IV access for blood transfusion, fluids and possible pressors (2) Need for intravenous access: Current visit: Yes Status: Acute A\\ Hypotension due to blood loss and poor peripheral IV access P\\ Left Subclavian vein Tripple lumen central venous access Risks, benefits and complications were reviewed with the patient. Complications include but are not limited to bleeding, infection, pneumothorax, injury to subclavian vein or artery and loss of guide wire. Questions were entertained and answered to her satisfaction and she wishes to proceed. No guarantees were given or implied. (3) Poor intravenous access: Current visit: Yes Status: Acute Patient has a small 22 in her left forearm placed by anesthesia yesterday Poor peripheral access History of Present Illness Chief Complaint: Vaginal Hemorrhage, hypotension, needs IV access Narrative: Ms. Salamanca is a pleasant 37 year old female who was admitted for Blood loss anemia due to abnormal uterine bleeding She presented to the emergency department referred by her primary care physician from her rehab facility for evaluation of heavy vaginal bleeding. The patient began having heavy bleeding for over the course of the last 2 weeks and her hemoglobin dipped down to 6.5 today. The patient's medical history is significant for multiple sclerosis and is bedbound she also suffers from hemochromatosis. In addition she has a history of squamous cell carcinoma of the tongue and did develop a DVT 7 years ago. She was initially managed on warfarin for many years and switched to Eliquis. Eliquis was discontinued on 09/13/18. She has been managed on Depo-Provera for the last 18 years to control her menses. In this recent episode she denies any recent weight changes. She denies any dizziness or lightheadedness although she does feel fatigued. Patients Hgb dropped to 4.6 with a Hct of 16.8 today. She is a Jehovas Witness but has at this point agreed to Blood products. Attempt was made by Dr. Malave to have the patient transferred but there were no beds available at [facility] or [facility]. I was asked to see the patient for placement of a Central line and possibly a Cordis if patient doesn't stabilize. She has a 22 peripheral line at this point that anesthesia placed yesterday. Review of Systems Constitutional Denies fever(s) ENT Reports dysphagia (secondary to partial tongue excision) Comments: History of right neck lymphnode dissection and tracheostomy Cardiovascular Denies chest pain, Denies chest pain at rest, Denies irregular heart rhythm, Denies palpitations and Denies dyspnea Respiratory Denies hemoptysis, Denies dyspnea and Denies wheezing Gastrointestinal Denies abdominal pain, Denies melena, Denies hematochezia, Denies change in bowel habits, Denies coffee ground emesis and Reports dysphagia (secondary to partial tongue excision) Genitourinary Reports as per HPI Endocrine Denies palpitations Allergic/Immunologic Denies wheezing [facility] Medical History Breakthrough bleeding on Depo-Provera (Acute) 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) Hemochromatosis (Chronic) DVT (deep venous thrombosis) (Chronic) MS (multiple sclerosis) (Chronic) Depression Type 2 diabetes mellitus Neurogenic bladder (Chronic) Breakthrough bleeding on Depo-Provera (Acute) Catatonia (Resolved) Surgical History History of skin graft (Resolved) History of tracheostomy (Resolved) S/P percutaneous endoscopic gastrostomy (PEG) tube placement (Resolved) Family History Mother Multiple sclerosis Social History Smoking/Tobacco Use Status: Never Alcohol Intake: never Substance use type: does not use Caregiver/Support person: Yes (inpt at [facility] ) Details: bedbound Housing: jail Number of Children: 2 Communication Needs: None current occupation: disabled Sexually active: No Do you feel safe at home: Yes Do you feel safe in your relationship?: Yes Additional Social history: In process of . History History 2 Para Hx # Term Pregnancies 2 Multiple births Hx # Pregnancies Ectopic pregnancies AB induced Hx Number of Living Children AB spontaneous Exam Const General: cooperative and no acute distress Nutritional Appearance: average body habitus Orientation: alert and oriented x3 HENMT Head: normocephalic and atraumatic Face images: 1. Lymphadenectomy scar 2. Tracheostomy scar Neck Neck: no lymphadenopathy Lymphatic: no lymphadenopathy noted Resp Effort & Inspection: normal respiratory effort Auscultation: clear to auscultation bilaterally Cardio Rate: regular rate Rhythm: regular rhythm Results Last Vital Signs Temp 98.2 F 09/15/18 07:45 Pulse 104 H 09/15/18 07:45 Resp 20 09/15/18 07:45 BP 95/62 L 09/15/18 07:45 Pulse Ox 100 09/15/18 07:45 Labs : 09/15/18 06:40 09/15/18 06:40 Laboratory Results - last 24 hr 09/14/18 09/14/18 09/14/18 13:50 13:50 13:50 WBC 4.38 L D RBC 2.16 L Hgb 6.5 L* Hct 20.7 L* MCV 95.8 H MCH 30.1 MCHC 31.4 L RDW 15.5 H Plt Count 289 MPV 10.8 Immature Gran % 0.0 Neutrophils % 67.8 Lymphocytes % 20.5 Monocytes % 5.3 Eosinophils % 5.7 Basophils % 0.7 Absolute Neutrophils 2.97 Absolute Lymphocytes 0.90 L Absolute Monocytes 0.23 Absolute Eosinophils 0.25 Absolute Basophils 0.03 Differential Comment Rbc morph reviewed RBC Morphology See below Polychromasia Present Hypochromasia 1+ Anisocytosis 1+ Microcytosis 1+ Macrocytosis 1+ Retic Count PT 10.4 INR 1.0 APTT 22.9 Sodium 138 Potassium 3.6 Chloride 101 Carbon Dioxide 31.2 Anion Gap 5.8 BUN 10 Creatinine 0.59 Estimated GFR/1.73 m2 >= 60.00 Glucose 117 H Calcium 8.6 Magnesium Iron TIBC Ferritin Total Bilirubin 0.1 L AST 14 L ALT 24 Alkaline Phosphatase 118 H Total Protein 7.6 Albumin 2.9 L Vitamin B12 Folate TSH Urine Color Urine Clarity Urine pH Ur Specific Beals Urine Protein Urine Ketones Urine Blood Urine Nitrite Urine Bilirubin Urine Urobilinogen Ur Leukocyte Esterase Urine RBC Urine WBC Ur Epithelial Cells Urine Crystals Urine Bacteria Urine Mucus Ur Culture Indicated? Urine Glucose Urine HCG, Qual Patient ABO/Rh Antibody Screen Crossmatch 09/14/18 09/15/18 09/15/18 22:00 06:40 06:40 WBC Cancelled RBC Cancelled Hgb Cancelled Hct Cancelled MCV Cancelled MCH Cancelled MCHC Cancelled RDW Cancelled Plt Count Cancelled MPV Cancelled Immature Gran % Neutrophils % Lymphocytes % Monocytes % Eosinophils % Basophils % Absolute Neutrophils Absolute Lymphocytes Absolute Monocytes Absolute Eosinophils Absolute Basophils Differential Comment RBC Morphology Polychromasia Hypochromasia Anisocytosis Microcytosis Macrocytosis Retic Count PT INR APTT Sodium Potassium Chloride Carbon Dioxide Anion Gap BUN Creatinine Estimated GFR/1.73 m2 Glucose Calcium Magnesium Iron 35 L TIBC 187 L Ferritin 103 Total Bilirubin AST ALT Alkaline Phosphatase Total Protein Albumin Vitamin B12 Folate > 20.0 H TSH 4.14 H Urine Color Urine Clarity Urine pH Ur Specific Beals Urine Protein Urine Ketones Urine Blood Urine Nitrite Urine Bilirubin Urine Urobilinogen Ur Leukocyte Esterase Urine RBC Urine WBC Ur Epithelial Cells Urine Crystals Urine Bacteria Urine Mucus Ur Culture Indicated? Urine Glucose Urine HCG, Qual Patient ABO/Rh Antibody Screen Crossmatch 09/15/18 09/15/18 09/15/18 06:40 06:40 06:40 WBC RBC Hgb Hct MCV MCH MCHC RDW Plt Count MPV Immature Gran % Neutrophils % Lymphocytes % Monocytes % Eosinophils % Basophils % Absolute Neutrophils Absolute Lymphocytes Absolute Monocytes Absolute Eosinophils Absolute Basophils Differential Comment RBC Morphology Polychromasia Hypochromasia Anisocytosis Microcytosis Macrocytosis Retic Count 6.1 H PT INR APTT Sodium 139 Potassium 3.6 Chloride 105 Carbon Dioxide 26.3 Anion Gap 7.7 BUN 12 Creatinine 0.58 Estimated GFR/1.73 m2 >= 60.00 Glucose 123 H Calcium 8.2 L Magnesium 1.8 Iron TIBC Ferritin Total Bilirubin AST ALT Alkaline Phosphatase Total Protein Albumin Vitamin B12 Cancelled Folate TSH Urine Color Urine Clarity Urine pH Ur Specific Beals Urine Protein Urine Ketones Urine Blood Urine Nitrite Urine Bilirubin Urine Urobilinogen Ur Leukocyte Esterase Urine RBC Urine WBC Ur Epithelial Cells Urine Crystals Urine Bacteria Urine Mucus Ur Culture Indicated? Urine Glucose Urine HCG, Qual Patient ABO/Rh Antibody Screen Crossmatch 09/15/18 09/15/18 09/15/18 06:40 06:40 06:40 WBC 4.25 L RBC 1.52 L Hgb 4.6 L* Hct 14.8 L* D MCV 97.4 H MCH 30.3 MCHC 31.1 L RDW 16.0 H Plt Count 234 MPV 11.1 H Immature Gran % 0.2 Neutrophils % 73.4 Lymphocytes % 15.8 Monocytes % 6.1 Eosinophils % 3.8 Basophils % 0.7 Absolute Neutrophils 3.12 Absolute Lymphocytes 0.67 L Absolute Monocytes 0.26 Absolute Eosinophils 0.16 Absolute Basophils 0.03 Differential Comment RBC Morphology Polychromasia Hypochromasia Anisocytosis Microcytosis Macrocytosis Retic Count PT INR APTT Sodium Potassium Chloride Carbon Dioxide Anion Gap BUN Creatinine Estimated GFR/1.73 m2 Glucose Calcium Magnesium Iron TIBC Ferritin Total Bilirubin AST ALT Alkaline Phosphatase Total Protein Albumin Vitamin B12 520 Folate TSH Urine Color Urine Clarity Urine pH Ur Specific Beals Urine Protein Urine Ketones Urine Blood Urine Nitrite Urine Bilirubin Urine Urobilinogen Ur Leukocyte Esterase Urine RBC Urine WBC Ur Epithelial Cells Urine Crystals Urine Bacteria Urine Mucus Ur Culture Indicated? Urine Glucose Urine HCG, Qual Patient ABO/Rh O Positive Antibody Screen Negative Crossmatch See Detail 09/15/18 09/15/18 08:20 08:20 WBC RBC Hgb Hct MCV MCH MCHC RDW Plt Count MPV Immature Gran % Neutrophils % Lymphocytes % Monocytes % Eosinophils % Basophils % Absolute Neutrophils Absolute Lymphocytes Absolute Monocytes Absolute Eosinophils Absolute Basophils Differential Comment RBC Morphology Polychromasia Hypochromasia Anisocytosis Microcytosis Macrocytosis Retic Count PT INR APTT Sodium Potassium Chloride Carbon Dioxide Anion Gap BUN Creatinine Estimated GFR/1.73 m2 Glucose Calcium Magnesium Iron TIBC Ferritin Total Bilirubin AST ALT Alkaline Phosphatase Total Protein Albumin Vitamin B12 Folate TSH Urine Color Yellow Urine Clarity Cloudy Urine pH 6.0 Ur Specific Beals >= 1.030 H Urine Protein >=300 H Urine Ketones Negative Urine Blood Moderate H Urine Nitrite Positive H Urine Bilirubin Negative Urine Urobilinogen 0.2 Ur Leukocyte Esterase Small H Urine RBC Not Applicable Urine WBC >50 Ur Epithelial Cells Not Applicable Urine Crystals Not Applicable Urine Bacteria Not Applicable Urine Mucus Not Applicable Ur Culture Indicated? Yes Urine Glucose Negative Urine HCG, Qual Negative Patient ABO/Rh Antibody Screen Crossmatch
--- NOTE | 2018-09-15 10:46 | PDOC.CMIN ---
- If Service Date Differs Date of service: 09/15/18 Time of Service: 10:46 Care Management Initial Assess REASON FOR HOSPITALIZATION:: Abnormal uterine bleeding PAST MEDICAL HISTORY/PAST SURGICAL HISTORY:: Breakthrough bleeding on Depo-Provera (Acute). 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 Hemochromatosis (Chronic). DVT (deep venous thrombosis) (Chronic). MS (multiple sclerosis) (Chronic). Depression. Type 2 diabetes mellitus. Neurogenic bladder (Chronic). Breakthrough bleeding on Depo-Provera (Acute). Catatonia (Resolved). History of skin graft (Resolved). History of tracheostomy (Resolved). S/P percutaneous endoscopic gastrostomy (PEG) tube placement (Resolved) PREVIOUS FUNCTIONAL STATUS/SOCIAL/FAMILY SUPPORTS:: Ethel resides at [facility] where she has been a resident since 2017. Ethel has two children whom are residing with family members at this time. Ethel's mom and Aunt Jacy are her primary supports. CURRENT FUNCTIONAL STATUS:: Currently Ethel is lying in bed. She was transferred into the ICU this morning. Ethel is receptive to conversation with this screenplay writer and remembers CM from previous visits. Ethel discussed agreeing to blood products and that this was a difficult decision for her due to her protestant. ADVANCE DIRECTIVES:: Guardianship - Jacy Townsend (Aunt) is guardian Has patient been provided with information about the portal?: Yes Did the patient sign up for the portal?: No CODE STATUS:: Full Code INSURANCE COVERAGE / FINANCIAL ISSUES:: Medicare, Medicaid CURRENT HOME/COMMUNITY SERVICES/EQUIPMENT:: Currently Ethel receives all services through [facility]. She has an electric w/c which she uses at baseline. PRIMARY CARE PHYSICIAN:: Dr. Leung POTENTIAL DISCHARGE NEEDS:: Return to [facility]. ? transfer to tertiary center PATIENT/FAMILY EDUCATION NEEDS:: Review DC instructions, any limitations, and ongoing DC planning discussion. Discuss 'Ask Me Three' ANTICIPATED BARRIERS TO DISCHARGE:: None identified at this time. TRANSPORTATION:: Via [facility] w/c van vs ambulance depending on DC disposition PLAN:: Ethel will either return to [facility] vs. transfer to tertiary hospital. Ethel's aunt will be in to visit her today. She will transport via ambulance vs. [facility] w/c van depending on DC disposition.
--- NOTE | 2018-09-15 10:58 | W.PM.OP ---
Date of service: 09/15/18 Time of Service: 10:30 Operative Note DATE OF PROCEDURE: 09/15/18 PRE-OP DIAGNOSIS: Hypotension secondary to bleeding and poor peripheral IV access POST-OP DIAGNOSIS: same PROCEDURE: Left subclavian vein triple lumen Catheter placement SURGEON: Roma Yan ANESTHESIA: local (1% Lidocaine) ESTIMATED BLOOD LOSS: 5 PATHOLOGY: none sent COMPLICATIONS: None Patient was transported to: no change Patient's condition: critical Indications: Mrs. Salamanca is a pleasant 37 year old female who was admitted with severe anemia secondary to abnormal vaginal bleeding. She has a history of DVT for which she is on Eliquis. This was stopped on 09/13/18. She has poor peripheral IV access and needs a central line for IV fluids, blood and possible pressors. Risks, benefits and complications have been reviewed and she wishes to proceed. No guarantees were given or implied. Procedure Description: After informed consent was obtained the patient was placed in a supine position on her ICU bed. The head of the bed was lowered. A time out was done and her name, and procedure to be done were reviewed. Sharps were counted. The left chest wall was then prepped and draped in a standard fashion with chlorhexidine. Next 5 cc of 1% Lidocaine was injected into the dermis and subcutaneous tissue along the left clavicle. The introducer needle was then slowly advanced into the subclavian vein. Once I was able to pull venous blood into the syringe, the syringe was removed from the needle. The guidewire was then placed easily without resistance into the subclavian vein. The needle was removed. A small incision was made with an 11 blade next to the guidewire. The dilator was then placed over the guidewire into the vein. The dilator was removed and the tripple lumen catheter was placed over the guidewire into the vein to 16 cm. The guidewire was removed and needless valves were placed on each lumen. Each lumen was then aspirated and flushed with sterile saline. The Central line was then secured in place with 2-0 silk suture. The skin was cleaned and dried and an antibiotic wheel was applied at the skin entrance. An occlusive dressing was then applied. The drapes were removed. Sharps were counted and were correct at the end of the procedure. The patient tolerated the procedure well. Stat CXR was ordered and was pending at the time of this dictation.
[2018-09-15] MEDS: Normal Saline 500 ML 30 ML IV ×5 (11:20→20:30)
[2018-09-15] MEDS: Cyanocobalamin 1000 MCG/ML VIAL IM/SC (11:31)
[2018-09-15] MEDS: Normal Saline Flush 10 ML SYR IVP ×2 (11:32→17:59)
[2018-09-15] MEDS: Water,Injection,Bacteriostatic 30 ML VIAL (11:37)
[2018-09-15] MEDS: diphenhydrAMINE 25 MG CAP PO (11:53)
--- NOTE | 2018-09-15 12:38 | INITIAL_ITS ---
- If Service Date Differs Date of service: 09/15/18 Time of Service: 10:46 Care Management Initial Assess REASON FOR HOSPITALIZATION:: Abnormal uterine bleeding PAST MEDICAL HISTORY/PAST SURGICAL HISTORY:: Breakthrough bleeding on Depo- Provera (Acute). 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 Hemochromatosis (Chronic). DVT (deep venous thrombosis) (Chronic). MS (multiple sclerosis) (Chronic). Depression. Type 2 diabetes mellitus. Neurogenic bladder (Chronic). Breakthrough bleeding on Depo-Provera (Acute). Catatonia (Resolved). History of skin graft (Resolved). History of tracheostomy (Resolved). S/P percutaneous endoscopic gastrostomy (PEG) tube placement (Resolved) PREVIOUS FUNCTIONAL STATUS/SOCIAL/FAMILY SUPPORTS:: Ethel resides at [facility] where she has been a resident since 2017. Ethel has two children whom are residing with family members at this time. Ethel's mom and Aunt Jacy are her primary supports. CURRENT FUNCTIONAL STATUS:: Currently Ethel is lying in bed. She was transferred into the ICU this morning. Ethel is receptive to conversation with this technical proposal writer and remembers CM from previous visits. Ethel discussed agreeing to blood products and that this was a difficult decision for her due to her advent. ADVANCE DIRECTIVES:: Guardianship - Jacy Townsend (Aunt) is guardian Has patient been provided with information about the portal?: Yes Did the patient sign up for the portal?: No CODE STATUS:: Full Code INSURANCE COVERAGE / FINANCIAL ISSUES:: Medicare, Medicaid CURRENT HOME/COMMUNITY SERVICES/EQUIPMENT:: Currently Ethel receives all services through [facility]. She has an electric w/c which she uses at baseline. PRIMARY CARE PHYSICIAN:: Dr. Leung POTENTIAL DISCHARGE NEEDS:: Return to [facility]. ? transfer to tertiary center PATIENT/FAMILY EDUCATION NEEDS:: Review DC instructions, any limitations, and ongoing DC planning discussion. Discuss 'Ask Me Three' ANTICIPATED BARRIERS TO DISCHARGE:: None identified at this time. TRANSPORTATION:: Via [facility] w/c van vs ambulance depending on DC disposition PLAN:: Ethel will either return to [facility] vs. transfer to tertiary hospital. Ethel's aunt will be in to visit her today. She will transport via ambulance vs. [facility] w/c van depending on DC disposition.
[2018-09-15] MEDS: Normal Saline-STERILE FIELD 0.9% 10 ML SYR ×3 (12:39→17:51)
[2018-09-15] MEDS: Lidocaine 1% Multi-Dose 50 ML VIAL (12:39)
[2018-09-15] MEDS: Levothyroxine 50 MCG TAB PO (12:42)
--- NOTE | 2018-09-15 14:57 | PHARADMIT ---
Addendum entered by Rachna Koo 09/19/18 13:40: Pharmacy Note Subjective anticipate discharge tomorrow Objective vs ok, H/H 8.9/27.4 Assessment IV ceftriaxone changed to PO cephalexin, restarted apixaban, stopped PRN ibuprofen and added PO hydromorphone prn for pain Plan central line to stay in place until discharge Addendum entered by Forrest Pete III 09/17/18 11:29: Pharmacy Note Subjective Patient's H&H became critical and she was persauded to accept transfusion. Taken to OR yesterday for hysterectomy & Ovaries. Recovering in ICU now. Has history of MS Objective VS-OK HR-103 K+3.3 Mag-1.7 H&H-10.5/31.9 pain:10/15 Assessment On Rocephin for UTI Plan Patient domning btter after transfusions and ecovering from surgery. No new MD notes yet. Original Note: Admission Pharmacy Clinical Review BLOOD LOSS, ANEMIA, Uterine bleeding, (central line placement) Code Status Full Code Current Weight Wgt- 57.1 kg Renally Cleared and Narrow Therapeutic Index Meds CrCl~ 75.41 mL/min Meds-OK QTc Value / Action Taken WQTc-455 (Jul-2018) NA BP Control, Fever BP- 98/57 Tmax-37.6C Electrolytes reviewed Na- 139 K+3.6 Mag-1.8 DVT Prophylaxis none Opiate Usage / Scheduled Bowel Regimen Ordered No Yes Plt/SCr for Heparin / Enoxaparin Plts-234 SCr0.58 INR for Warfarin inr-1.0 H/H stable, WBC/Bands H&H- 4.6/14.8 WBC- 4.25 Antibiotic appropriateness none Cultures and Sensitivities Nose MRSA-pending, Urine-pending Surgical ABX d/c within 24 hr na DM control / Insulin Dosing BG-123 Aspart, Heart Failure (Check EF%) (OMERO's, B-Block, Diuretics) none IV to PO Switch No Home Meds Reviewed Baclofen 30mg TID (above Max dose, MD aware) Home Meds Not Ordered Apixaban, Questran, Biotin, B-Complex, Miconazole Pwdr, Depo-Provera Comments Premarin inj 25mg qid on order Jehovah witness, no blood products
--- NOTE | 2018-09-15 16:21 | W.PM.PROGNOT ---
Date of Service Date of service: 09/15/18 Time of Service: 08:01 Assessment and Plan (1) Blood loss anemia: Current visit: Yes Status: Acute Symptomatic, hemoglobin is dropping; The patient is approaching hemorrhagic shock. Case discussed with both Robbin Malave and Kristi. She now agrees to blood transfusions, so hopefully this will stabilize her. She is written for 4 units of pRBC's. I do agree that something needs to be done about her uterine bleeding - will defer this to the primary team. Continue to hold anticoagulation. TXA per primary team. The patient does have hemochromatosis, but her ferritin is not prohibitively high. Having said that, I would not give her any additional iron since she is getting blood transfusion. (2) Abnormal uterine bleeding: Current visit: Yes Status: Acute Defer to primary team (3) UTI (urinary tract infection): Current visit: Yes Status: Acute Previously grew E. Coli and tolerated rocephin - will attempt again and await urine C&S. (4) Neurogenic bladder: Current visit: No Status: Acute s/p crockett - evidently has a UTI. see above (5) Hemochromatosis: Current visit: No Status: Chronic As above (6) Type 2 diabetes mellitus with hyperglycemia: Current visit: No Status: Chronic Her A1C is not a reliable indicator of sugars in setting of acute anemia. 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 (9) DVT (deep venous thrombosis): Current visit: No Status: Chronic Holding eliquis. At this point, especially if she retains her uterus, the risks of her remaining on anticoagulation outweigh the benefits. (10) Discharge planning issues: Current visit: Yes Status: Acute Full code Possible transfer to a tertiary care facility (11) DVT prophylaxis: Current visit: Yes Status: Acute Eliquis on hold. I do not feel comfortable with SCD's/TEDs until we know more about DVT history Subjective Interval history since last seen: I got emergently called to patient's bedside this morning. She was just transferred to ICU. Her H/H had fallen to 4.6/14.8. She did become tachycardic (HR in 110's) and SBP's dropped into 90's. She [place] dizzy, nauseated, had palpitations. Denied chest pain and shortness of breath. She stated she just generally didn't feel well. She did have some vaginal bleeding overnight. At the time that I saw her, she was already receiving TXA. I spoke with the patient at length about her options. One option being considered was taking her emergently to the OR. Another one/in addition to the first one, a transfer to a tertiary care facility was considered. I also spoke with the patient about how sure she was that she did not want blood transfusions. The patient carefully considered this and, in the end, verbalized that she really wanted to see her daughter graduate this spring, so in fact, she did agree to blood transfusion. This was initiated. Patient was written for 4 units of pRBC's. At this time, she continues to have bleeding and transfer is still being considered by the primary team. Exam Narrative Exam Narrative: General: frail middle aged female, more pale and ill appearing than yesterday Neuro: A&OX3, contracted BLE's; able to move BUE's Psych: appropriate speech pattern/content Skin: dry lips HEENT: EOMI, dry MMM, R neck incision well healed. No goiter. Heart: RRR, no m/r/g, mildly tachycardic Lungs: CTAB GI: abdomen is soft, nontender, nondistended Extremities: no e/c/c BLE's; 1+ pedal pulses B; contracted Objective Objective Clinical Data: Abnormal lab results 09/15/18 09/15/18 09/15/18 Range/Units 06:40 06:40 06:40 WBC (4.4-10.8) k/cumm RBC (4.00-5.20) m/cumm Hgb (12.0-15.5) g/dL Hct (36.0-46.0) % MCV (80-95) fL MCHC (32.0-36.0) g/dL RDW (11.7-14.6) % MPV (8.0-11.0) fL Absolute Lymphocytes (1.2-3.4) k/cumm Retic Count 6.1 H (0.5-2.4) % Glucose (70-100) mg/dL Calcium (8.5-10.1) mg/dL Iron 35 L (50-175) ug/dL TIBC 187 L (250-450) ug/dL Folate > 20.0 H (8.6-20.0) ng/mL TSH 4.14 H (0.358-3.74) uIU/mL Ur Specific [place] (1.005-1.025) Urine Protein (Negative) mg/dL Urine Blood (Negative) Urine Nitrite (Negative) Ur Leukocyte Esterase (Negative) Crossmatch 09/15/18 09/15/18 09/15/18 Range/Units 06:40 06:40 06:40 WBC 4.25 L (4.4-10.8) k/cumm RBC 1.52 L (4.00-5.20) m/cumm Hgb 4.6 L* (12.0-15.5) g/dL Hct 14.8 L* D (36.0-46.0) % MCV 97.4 H (80-95) fL MCHC 31.1 L (32.0-36.0) g/dL RDW 16.0 H (11.7-14.6) % MPV 11.1 H (8.0-11.0) fL Absolute Lymphocytes 0.67 L (1.2-3.4) k/cumm Retic Count (0.5-2.4) % Glucose 123 H (70-100) mg/dL Calcium 8.2 L (8.5-10.1) mg/dL Iron (50-175) ug/dL TIBC (250-450) ug/dL Folate (8.6-20.0) ng/mL TSH (0.358-3.74) uIU/mL Ur Specific [place] (1.005-1.025) Urine Protein (Negative) mg/dL Urine Blood (Negative) Urine Nitrite (Negative) Ur Leukocyte Esterase (Negative) Crossmatch See Detail 09/15/18 Range/Units 08:20 WBC (4.4-10.8) k/cumm RBC (4.00-5.20) m/cumm Hgb (12.0-15.5) g/dL Hct (36.0-46.0) % MCV (80-95) fL MCHC (32.0-36.0) g/dL RDW (11.7-14.6) % MPV (8.0-11.0) fL Absolute Lymphocytes (1.2-3.4) k/cumm Retic Count (0.5-2.4) % Glucose (70-100) mg/dL Calcium (8.5-10.1) mg/dL Iron (50-175) ug/dL TIBC (250-450) ug/dL Folate (8.6-20.0) ng/mL TSH (0.358-3.74) uIU/mL Ur Specific [place] >= 1.030 H (1.005-1.025) Urine Protein >=300 H (Negative) mg/dL Urine Blood Moderate H (Negative) Urine Nitrite Positive H (Negative) Ur Leukocyte Esterase Small H (Negative) Crossmatch Vital Signs Temperature 36.6 C 09/15/18 15:53 Temperature Source Tympanic 09/15/18 08:45 Pulse 94 H 09/15/18 15:53 Pulse Rhythm Regular 09/15/18 07:35 Respiratory Rate 17 09/15/18 14:54 Respiratory Effort 09/15/18 12:00 Respiratory Depth Normal 09/15/18 12:00 Respiratory Pattern Normal 09/15/18 12:00 Blood Pressure 103/59 L 09/15/18 14:54 Blood Pressure Mean 82 09/14/18 13:48 Blood Pressure Position Supine 09/15/18 08:45 Pulse Oximetry 100 09/15/18 14:54 Oxygen Delivery Method Nasal Cannula 09/15/18 15:53 Oxygen Flow Rate 2 09/15/18 15:53 Pain Level 0 09/15/18 08:45 Comment 09/15/18 07:45 Intake & Output 09/14/18 09/15/18 09/15/18 23:59 11:59 23:59 Intake Total 481.667 / 776.649 4249.333 / 2710.333 1191 / 2710.333 Output Total Balance 481.667 / 341.323 9019.333 / 2695.333 1191 / 2695.333 Weight 57.153 kg 57.153 kg Intake: IV 481.667 / 540.337 0073.333 / 0.333 591 / 0.333 Oral 200 / 200 Blood Product 600 / 600 Rbc Leuko Reduced Unit 300 / 300 [id number] Rbc Leuko Reduced Unit 300 / 300 [id number] Output: Urine Other: Urine Color Yellow Yellow Urine Appearance Clear Cloudy Purulent Comment pt on menses only 15 cc's of thick purulent urine obtained upon unsertion of crockett cathand sent for HCG and UA. MD made aware. Difficult insertion R/T vag bleeding obstructioning veiw & appears to have a possible partial prolapse Voiding Methods Diaper Diaper Incontinent Laboratory Results WBC 4.25 k/cumm (4.4-10.8) L 09/15/18 06:40 RBC 1.52 m/cumm (4.00-5.20) L 09/15/18 06:40 Hgb 4.6 g/dL (12.0-15.5) L* 09/15/18 06:40 Hct 14.8 % (36.0-46.0) L* D 09/15/18 06:40 MCV 97.4 fL (80-95) H 09/15/18 06:40 MCH 30.3 pg (27.0-33.0) 09/15/18 06:40 MCHC 31.1 g/dL (32.0-36.0) L 09/15/18 06:40 RDW 16.0 % (11.7-14.6) H 09/15/18 06:40 Plt Count 234 x1000/uL (130-400) 09/15/18 06:40 MPV 11.1 fL (8.0-11.0) H 09/15/18 06:40 Immature Gran % 0.2 09/15/18 06:40 Neutrophils % 73.4 09/15/18 06:40 Lymphocytes % 15.8 09/15/18 06:40 Monocytes % 6.1 09/15/18 06:40 Eosinophils % 3.8 09/15/18 06:40 Basophils % 0.7 09/15/18 06:40 Absolute Neutrophils 3.12 k/cumm (1.2-6.7) 09/15/18 06:40 Absolute Lymphocytes 0.67 k/cumm (1.2-3.4) L 09/15/18 06:40 Absolute Monocytes 0.26 k/cumm (0.11-0.7) 09/15/18 06:40 Absolute Eosinophils 0.16 k/cumm (0.0-0.7) 09/15/18 06:40 Absolute Basophils 0.03 k/cumm (0.0-0.2) 09/15/18 06:40 Differential Comment Rbc morph reviewed 09/14/18 13:50 RBC Morphology See below 09/14/18 13:50 Polychromasia Present 09/14/18 13:50 Hypochromasia 1+ 09/14/18 13:50 Anisocytosis 1+ 09/14/18 13:50 Microcytosis 1+ 09/14/18 13:50 Macrocytosis 1+ 09/14/18 13:50 Retic Count 6.1 % (0.5-2.4) H 09/15/18 06:40 PT 10.4 sec (9.3-11.0) 09/14/18 13:50 INR 1.0 (0.9-1.1) 09/14/18 13:50 APTT 22.9 sec (21.0-31.4) 09/14/18 13:50 Sodium 139 mmol/L (136-145) 09/15/18 06:40 Potassium 3.6 mmol/L (3.5-5.1) 09/15/18 06:40 Chloride 105 mmol/L (98-107) 09/15/18 06:40 Carbon Dioxide 26.3 mmol/L (21.0-32.0) 09/15/18 06:40 Anion Gap 7.7 mmol/L (3-11) 09/15/18 06:40 BUN 12 mg/dL (7-18) 09/15/18 06:40 Creatinine 0.58 mg/dL (0.55-1.02) 09/15/18 06:40 Estimated GFR/1.73 m2 >= 60.00 (mL/min/1.73m2) 09/15/18 06:40 Glucose 123 mg/dL (70-100) H 09/15/18 06:40 Calcium 8.2 mg/dL (8.5-10.1) L 09/15/18 06:40 Magnesium 1.8 mg/dL (1.8-2.4) 09/15/18 06:40 Iron 35 ug/dL (50-175) L 09/15/18 06:40 TIBC 187 ug/dL (250-450) L 09/15/18 06:40 Ferritin 103 ng/mL (8-388) 09/15/18 06:40 Total Bilirubin 0.1 mg/dL (0.2-1.0) L 09/14/18 13:50 AST 14 U/L (15-37) L 09/14/18 13:50 ALT 24 U/L (12-78) 09/14/18 13:50 Alkaline Phosphatase 118 U/L (46-116) H 09/14/18 13:50 Total Protein 7.6 g/dL (6.4-8.2) 09/14/18 13:50 Albumin 2.9 g/dL (3.4-5.0) L 09/14/18 13:50 Vitamin B12 520 pg/mL (193-986) 09/15/18 06:40 Folate > 20.0 ng/mL (8.6-20.0) H 09/15/18 06:40 TSH 4.14 uIU/mL (0.358-3.74) H 09/15/18 06:40 Urine Color Yellow (Yellow) 09/15/18 08:20 Urine Clarity Cloudy 09/15/18 08:20 Urine pH 6.0 (5-8) 09/15/18 08:20 Ur Specific [place] >= 1.030 (1.005-1.025) H 09/15/18 08:20 Urine Protein >=300 mg/dL (Negative) H 09/15/18 08:20 Urine Ketones Negative mg/dL (Negative) 09/15/18 08:20 Urine Blood Moderate (Negative) H 09/15/18 08:20 Urine Nitrite Positive (Negative) H 09/15/18 08:20 Urine Bilirubin Negative (Negative) 09/15/18 08:20 Urine Urobilinogen 0.2 EU/dL (Up TO 0.2) 09/15/18 08:20 Ur Leukocyte Esterase Small (Negative) H 09/15/18 08:20 Urine RBC Not Applicable 09/15/18 08:20 Urine WBC >50 HPF (0-5) 09/15/18 08:20 Ur Epithelial Cells Not Applicable 09/15/18 08:20 Urine Crystals Not Applicable 09/15/18 08:20 Urine Bacteria Not Applicable 09/15/18 08:20 Urine Mucus Not Applicable 09/15/18 08:20 Ur Culture Indicated? Yes 09/15/18 08:20 Urine Glucose Negative mg/dL (Negative) 09/15/18 08:20 Urine HCG, Qual Negative 09/15/18 08:20 Patient ABO/Rh O Positive 09/15/18 06:40 Antibody Screen Negative 09/15/18 06:40 Crossmatch See Detail 09/15/18 06:40
--- NOTE | 2018-09-15 16:47 | CHAPLAIN ---
I learned at morning meeting that Ethel was refusing to receiving a blood transfusion because of her evelyn beliefs. She is a Hinduism. Later, Ethel told me that following a conversation with Dr. Higgins, she changed her mind and agreed to accept the blood products. Ethel explained that Dr. Higgins said she could not guarantee that Ethel would survive with out the blood products. Ethel said she has made a promise to her daughter to attend her high school graduation in mid-November and keeping this promise became paramount for Ethel. She said she struggled with the decision, weighing the consequences of going against her evelyn tradition and laws and keeping her promise to her daughter and in the end made the decision based on what she believed was best for her daughter. She would have made a different decision if the graduation had already happened, she said. I offered a prayer with Ethel before I left. Ethel relies on her aunt, (who is her guardian) for support and was expecting her to be here this afternoon. She gets support from her mom, but thoroughly trusts her aunt to speak for her.
--- NOTE | 2018-09-15 17:50 | W.PM.PROGNOT ---
Date of Service Date of service: 09/15/18 Time of Service: 17:50 Assessment and Plan (1) Blood loss anemia: Current visit: Yes Status: Acute Will assess CBC and coags after the fourth unit of packed red blood cells in the sixpack of platelets has been infused. (2) Abnormal uterine bleeding: Current visit: Yes Status: Acute We will continue tranexamic acid and begin oral OCPs every 4 hours. Crockett bulb inserted into uterine cavity. Will continue I&O of EBL. (3) DVT prophylaxis: Current visit: Yes Status: Acute Subjective Patient reports: feels better Interval history since last seen: Patient is currently completing her third unit of packed red blood cells. Urine output since Crockett was inserted at approximately 8:00 this morning 260 cc clear jed urine. General surgery kindly inserted a central line to improve venous access. Exam Narrative Exam Narrative: I had the opportunity to speak with the [employer] service at the [facility] patient's condition. I reviewed her treatment so far including 2 doses of trans-Saroj acid IV 1 dose of IV Premarin 3 and eventually 4 units of packed red blood cells with a 6 pack of platelets to be infused her current vital signs. It was recommended that a Crockett balloon be inserted into the uterus and uterine childress With. It was felt this 30 cc in the Crockett balloon would space sufficient to provide tampon. In light of the patient's continued bleeding despite the trans-Saroj acid and 1 dose of Premarin plan is to continue with a 35 mcg OCP every 4 hours with antiemetics provided. Trans-Saroj acid will be continued for 2 more doses approximately 6 hours apart. I see no plans for surgery this evening and the patient will be allowed to eat as she desires. Speculum Exam - Vagina: vaginal bleeding OB/External & Speculum: vaginal bleeding Other: Description of procedure: After verbal consent was obtained patient was placed on her left side and cervix was cleansed with Betadine swabs. A a 16 Fr crockett was directed into the uterus and intrauterine placement confirmed when dark red blood returned. Crockett bulb was inflated to with 30cc of sterile NS. The crockett catheter was placed to gravity drainage. Procedure was well wilma by pt. Objective Objective Clinical Data: Abnormal lab results 09/15/18 09/15/18 09/15/18 Range/Units 06:40 06:40 06:40 WBC (4.4-10.8) k/cumm RBC (4.00-5.20) m/cumm Hgb (12.0-15.5) g/dL Hct (36.0-46.0) % MCV (80-95) fL MCHC (32.0-36.0) g/dL RDW (11.7-14.6) % MPV (8.0-11.0) fL Absolute Lymphocytes (1.2-3.4) k/cumm Retic Count 6.1 H (0.5-2.4) % Glucose (70-100) mg/dL Calcium (8.5-10.1) mg/dL Iron 35 L (50-175) ug/dL TIBC 187 L (250-450) ug/dL Folate > 20.0 H (8.6-20.0) ng/mL TSH 4.14 H (0.358-3.74) uIU/mL Ur Specific [place] (1.005-1.025) Urine Protein (Negative) mg/dL Urine Blood (Negative) Urine Nitrite (Negative) Ur Leukocyte Esterase (Negative) Crossmatch 09/15/18 09/15/18 09/15/18 Range/Units 06:40 06:40 06:40 WBC 4.25 L (4.4-10.8) k/cumm RBC 1.52 L (4.00-5.20) m/cumm Hgb 4.6 L* (12.0-15.5) g/dL Hct 14.8 L* D (36.0-46.0) % MCV 97.4 H (80-95) fL MCHC 31.1 L (32.0-36.0) g/dL RDW 16.0 H (11.7-14.6) % MPV 11.1 H (8.0-11.0) fL Absolute Lymphocytes 0.67 L (1.2-3.4) k/cumm Retic Count (0.5-2.4) % Glucose 123 H (70-100) mg/dL Calcium 8.2 L (8.5-10.1) mg/dL Iron (50-175) ug/dL TIBC (250-450) ug/dL Folate (8.6-20.0) ng/mL TSH (0.358-3.74) uIU/mL Ur Specific [place] (1.005-1.025) Urine Protein (Negative) mg/dL Urine Blood (Negative) Urine Nitrite (Negative) Ur Leukocyte Esterase (Negative) Crossmatch See Detail 09/15/18 Range/Units 08:20 WBC (4.4-10.8) k/cumm RBC (4.00-5.20) m/cumm Hgb (12.0-15.5) g/dL Hct (36.0-46.0) % MCV (80-95) fL MCHC (32.0-36.0) g/dL RDW (11.7-14.6) % MPV (8.0-11.0) fL Absolute Lymphocytes (1.2-3.4) k/cumm Retic Count (0.5-2.4) % Glucose (70-100) mg/dL Calcium (8.5-10.1) mg/dL Iron (50-175) ug/dL TIBC (250-450) ug/dL Folate (8.6-20.0) ng/mL TSH (0.358-3.74) uIU/mL Ur Specific [place] >= 1.030 H (1.005-1.025) Urine Protein >=300 H (Negative) mg/dL Urine Blood Moderate H (Negative) Urine Nitrite Positive H (Negative) Ur Leukocyte Esterase Small H (Negative) Crossmatch Vital Signs Temperature 98.2 F 09/15/18 16:53 Temperature Source Tympanic 09/15/18 08:45 Pulse 92 H 09/15/18 16:30 Pulse Rhythm Regular 09/15/18 07:35 Pulse 92 H 09/15/18 16:40 Respiratory Rate 18 09/15/18 16:40 Respiratory Effort 09/15/18 12:00 Respiratory Depth Normal 09/15/18 12:00 Respiratory Pattern Normal 09/15/18 12:00 Blood Pressure 101/60 09/15/18 16:30 Blood Pressure Mean 69 09/15/18 16:30 Blood Pressure Position Supine 09/15/18 08:45 Pulse Oximetry 100 09/15/18 16:40 Oxygen Delivery Method Nasal Cannula 09/15/18 16:53 Oxygen Flow Rate 2 09/15/18 16:53 Pain Level 0 09/15/18 08:45 Comment 09/15/18 07:45 Intake & Output 09/14/18 09/15/18 09/15/18 23:59 11:59 23:59 Intake Total 481.667 / 547.608 8960.333 / 2710.333 1191 / 2710.333 Output Total 15 / 275 260 / 275 Balance 481.667 / 147.449 5008.333 / 2435.333 931 / 2435.333 Weight 126 lb 0.013 oz 126 lb 0.013 oz Intake: IV 481.667 / 821.392 6688.333 / 1910.333 591 / 1910.333 Oral 200 / 200 Blood Product 600 / 600 Rbc Leuko Reduced Unit 300 / 300 [id number] Rbc Leuko Reduced Unit 300 / 300 [id number] Output: Urine 15 / 275 260 / 275 Other: Urine Color Yellow Yellow Urine Appearance Clear Cloudy Purulent Comment pt on menses only 15 cc's of thick purulent urine obtained upon unsertion of crockett cathand sent for HCG and UA. made aware. Difficult insertion R/T vag bleeding obstructioning veiw & appears to have a possible partial prolapse Voiding Methods Diaper Diaper Incontinent Laboratory Results WBC 4.25 k/cumm (4.4-10.8) L 09/15/18 06:40 RBC 1.52 m/cumm (4.00-5.20) L 09/15/18 06:40 Hgb 4.6 g/dL (12.0-15.5) L* 09/15/18 06:40 Hct 14.8 % (36.0-46.0) L* D 09/15/18 06:40 MCV 97.4 fL (80-95) H 09/15/18 06:40 MCH 30.3 pg (27.0-33.0) 09/15/18 06:40 MCHC 31.1 g/dL (32.0-36.0) L 09/15/18 06:40 RDW 16.0 % (11.7-14.6) H 09/15/18 06:40 Plt Count 234 x1000/uL (130-400) 09/15/18 06:40 MPV 11.1 fL (8.0-11.0) H 09/15/18 06:40 Immature Gran % 0.2 09/15/18 06:40 Neutrophils % 73.4 09/15/18 06:40 Lymphocytes % 15.8 09/15/18 06:40 Monocytes % 6.1 09/15/18 06:40 Eosinophils % 3.8 09/15/18 06:40 Basophils % 0.7 09/15/18 06:40 Absolute Neutrophils 3.12 k/cumm (1.2-6.7) 09/15/18 06:40 Absolute Lymphocytes 0.67 k/cumm (1.2-3.4) L 09/15/18 06:40 Absolute Monocytes 0.26 k/cumm (0.11-0.7) 09/15/18 06:40 Absolute Eosinophils 0.16 k/cumm (0.0-0.7) 09/15/18 06:40 Absolute Basophils 0.03 k/cumm (0.0-0.2) 09/15/18 06:40 Differential Comment Rbc morph reviewed 09/14/18 13:50 RBC Morphology See below 09/14/18 13:50 Polychromasia Present 09/14/18 13:50 Hypochromasia 1+ 09/14/18 13:50 Anisocytosis 1+ 09/14/18 13:50 Microcytosis 1+ 09/14/18 13:50 Macrocytosis 1+ 09/14/18 13:50 Retic Count 6.1 % (0.5-2.4) H 09/15/18 06:40 PT 10.4 sec (9.3-11.0) 09/14/18 13:50 INR 1.0 (0.9-1.1) 09/14/18 13:50 APTT 22.9 sec (21.0-31.4) 09/14/18 13:50 Sodium 139 mmol/L (136-145) 09/15/18 06:40 Potassium 3.6 mmol/L (3.5-5.1) 09/15/18 06:40 Chloride 105 mmol/L (98-107) 09/15/18 06:40 Carbon Dioxide 26.3 mmol/L (21.0-32.0) 09/15/18 06:40 Anion Gap 7.7 mmol/L (3-11) 09/15/18 06:40 BUN 12 mg/dL (7-18) 09/15/18 06:40 Creatinine 0.58 mg/dL (0.55-1.02) 09/15/18 06:40 Estimated GFR/1.73 m2 >= 60.00 (mL/min/1.73m2) 09/15/18 06:40 Glucose 123 mg/dL (70-100) H 09/15/18 06:40 Calcium 8.2 mg/dL (8.5-10.1) L 09/15/18 06:40 Magnesium 1.8 mg/dL (1.8-2.4) 09/15/18 06:40 Iron 35 ug/dL (50-175) L 09/15/18 06:40 TIBC 187 ug/dL (250-450) L 09/15/18 06:40 Ferritin 103 ng/mL (8-388) 09/15/18 06:40 Total Bilirubin 0.1 mg/dL (0.2-1.0) L 09/14/18 13:50 AST 14 U/L (15-37) L 09/14/18 13:50 ALT 24 U/L (12-78) 09/14/18 13:50 Alkaline Phosphatase 118 U/L (46-116) H 09/14/18 13:50 Total Protein 7.6 g/dL (6.4-8.2) 09/14/18 13:50 Albumin 2.9 g/dL (3.4-5.0) L 09/14/18 13:50 Vitamin B12 520 pg/mL (193-986) 09/15/18 06:40 Folate > 20.0 ng/mL (8.6-20.0) H 09/15/18 06:40 TSH 4.14 uIU/mL (0.358-3.74) H 09/15/18 06:40 Urine Color Yellow (Yellow) 09/15/18 08:20 Urine Clarity Cloudy 09/15/18 08:20 Urine pH 6.0 (5-8) 09/15/18 08:20 Ur Specific [place] >= 1.030 (1.005-1.025) H 09/15/18 08:20 Urine Protein >=300 mg/dL (Negative) H 09/15/18 08:20 Urine Ketones Negative mg/dL (Negative) 09/15/18 08:20 Urine Blood Moderate (Negative) H 09/15/18 08:20 Urine Nitrite Positive (Negative) H 09/15/18 08:20 Urine Bilirubin Negative (Negative) 09/15/18 08:20 Urine Urobilinogen 0.2 EU/dL (Up TO 0.2) 09/15/18 08:20 Ur Leukocyte Esterase Small (Negative) H 09/15/18 08:20 Urine RBC Not Applicable 09/15/18 08:20 Urine WBC >50 HPF (0-5) 09/15/18 08:20 Ur Epithelial Cells Not Applicable 09/15/18 08:20 Urine Crystals Not Applicable 09/15/18 08:20 Urine Bacteria Not Applicable 09/15/18 08:20 Urine Mucus Not Applicable 09/15/18 08:20 Ur Culture Indicated? Yes 09/15/18 08:20 Urine Glucose Negative mg/dL (Negative) 09/15/18 08:20 Urine HCG, Qual Negative 09/15/18 08:20 Patient ABO/Rh O Positive 09/15/18 06:40 Antibody Screen Negative 09/15/18 06:40 Crossmatch See Detail 09/15/18 06:40
[2018-09-15] MEDS: cefTRIAXone 1 GM/50 ML BAG IVPB (17:51)
[2018-09-15] MEDS: Ondansetron 4 MG TAB PO (17:56)
--- NOTE | 2018-09-15 18:02 | PGE_ITS ---
Date of Service Date of service: 09/15/18 Time of Service: 17:50 Assessment and Plan (1) Blood loss anemia: Current visit: Yes Status: Acute Will assess CBC and coags after the fourth unit of packed red blood cells in the sixpack of platelets has been infused. (2) Abnormal uterine bleeding: Current visit: Yes Status: Acute We will continue tranexamic acid and begin oral OCPs every 4 hours. Crockett bulb inserted into uterine cavity. Will continue I&O of EBL. (3) DVT prophylaxis: Current visit: Yes Status: Acute Subjective Patient reports: feels better Interval history since last seen: Patient is currently completing her third unit of packed red blood cells. Urine output since Crockett was inserted at approximately 8:00 this morning 260 cc clear jed urine. General surgery kindly inserted a central line to improve venous access. Exam Narrative Exam Narrative: I had the opportunity to speak with the [employer] service at the [facility] patient's condition. I reviewed her treatment so far including 2 doses of trans-Saroj acid IV 1 dose of IV Premarin 3 and eventually 4 units of packed red blood cells with a 6 pack of platelets to be infused her current vital signs. It was recommended that a Crockett balloon be inserted into the uterus and uterine childress With. It was felt this 30 cc in the Crockett balloon would space sufficient to provide tampon. In light of the patient's continued bleeding despite the trans-Saroj acid and 1 dose of Premarin plan is to continue with a 35 mcg OCP every 4 hours with antiemetics provided. Trans-Saroj acid will be continued for 2 more doses approximately 6 hours apart. I see no plans for surgery this evening and the patient will be allowed to eat as she desires. Speculum Exam - Vagina: vaginal bleeding OB/External & Speculum: vaginal bleeding Other: Description of procedure: After verbal consent was obtained patient was placed on her left side and cervix was cleansed with Betadine swabs. A a 16 Fr crockett was directed into the uterus and intrauterine placement confirmed when dark red blood returned. Crockett bulb was inflated to with 30cc of sterile NS. The crockett catheter was placed to gravity drainage. Procedure was well wilma by pt. Objective Objective Clinical Data: Abnormal lab results 09/15/18 09/15/18 09/15/18 Range/Units 06:40 06:40 06:40 WBC (4.4-10.8) k/cumm RBC (4.00-5.20) m/cumm Hgb (12.0-15.5) g/dL Hct (36.0-46.0) % MCV (80-95) fL MCHC (32.0-36.0) g/dL RDW (11.7-14.6) % MPV (8.0-11.0) fL Absolute Lymphocytes (1.2-3.4) k/cumm Retic Count 6.1 H (0.5-2.4) % Glucose (70-100) mg/dL Calcium (8.5-10.1) mg/dL Iron 35 L (50-175) ug/dL TIBC 187 L (250-450) ug/dL Folate > 20.0 H (8.6-20.0) ng/mL TSH 4.14 H (0.358-3.74) uIU/mL Ur Specific [place] (1.005-1.025) Urine Protein (Negative) mg/dL Urine Blood (Negative) Urine Nitrite (Negative) Ur Leukocyte Esterase (Negative) Crossmatch 09/15/18 09/15/18 09/15/18 Range/Units 06:40 06:40 06:40 WBC 4.25 L (4.4-10.8) k/cumm RBC 1.52 L (4.00-5.20) m/cumm Hgb 4.6 L* (12.0-15.5) g/dL Hct 14.8 L* D (36.0-46.0) % MCV 97.4 H (80-95) fL MCHC 31.1 L (32.0-36.0) g/dL RDW 16.0 H (11.7-14.6) % MPV 11.1 H (8.0-11.0) fL Absolute Lymphocytes 0.67 L (1.2-3.4) k/cumm Retic Count (0.5-2.4) % Glucose 123 H (70-100) mg/dL Calcium 8.2 L (8.5-10.1) mg/dL Iron (50-175) ug/dL TIBC (250-450) ug/dL Folate (8.6-20.0) ng/mL TSH (0.358-3.74) uIU/mL Ur Specific [place] (1.005-1.025) Urine Protein (Negative) mg/dL Urine Blood (Negative) Urine Nitrite (Negative) Ur Leukocyte Esterase (Negative) Crossmatch See Detail 09/15/18 Range/Units 08:20 WBC (4.4-10.8) k/cumm RBC (4.00-5.20) m/cumm Hgb (12.0-15.5) g/dL Hct (36.0-46.0) % MCV (80-95) fL MCHC (32.0-36.0) g/dL RDW (11.7-14.6) % MPV (8.0-11.0) fL Absolute Lymphocytes (1.2-3.4) k/cumm Retic Count (0.5-2.4) % Glucose (70-100) mg/dL Calcium (8.5-10.1) mg/dL Iron (50-175) ug/dL TIBC (250-450) ug/dL Folate (8.6-20.0) ng/mL TSH (0.358-3.74) uIU/mL Ur Specific [place] >= 1.030 H (1.005-1.025) Urine Protein >=300 H (Negative) mg/dL Urine Blood Moderate H (Negative) Urine Nitrite Positive H (Negative) Ur Leukocyte Esterase Small H (Negative) Crossmatch Vital Signs Temperature 98.2 F 09/15/18 16:53 Temperature Source Tympanic 09/15/18 08:45 Pulse 92 H 09/15/18 16:30 Pulse Rhythm Regular 09/15/18 07:35 Pulse 92 H 09/15/18 16:40 Respiratory Rate 18 09/15/18 16:40 Respiratory Effort 09/15/18 12:00 Respiratory Depth Normal 09/15/18 12:00 Respiratory Pattern Normal 09/15/18 12:00 Blood Pressure 101/60 09/15/18 16:30 Blood Pressure Mean 69 09/15/18 16:30 Blood Pressure Position Supine 09/15/18 08:45 Pulse Oximetry 100 09/15/18 16:40 Oxygen Delivery Method Nasal Cannula 09/15/18 16:53 Oxygen Flow Rate 2 09/15/18 16:53 Pain Level 0 09/15/18 08:45 Comment 09/15/18 07:45 Intake & Output 09/14/18 09/15/18 09/15/18 23:59 11:59 23:59 Intake Total 481.667 / 132.291 1743.333 / 2710.333 1191 / 2710.333 Output Total 15 / 275 260 / 275 Balance 481.667 / 542.454 4828.333 / 2435.333 931 / 2435.333 Weight 126 lb 0.013 oz 126 lb 0.013 oz Intake: IV 481.667 / 645.163 7351.333 / 1910.333 591 / 1910.333 Oral 200 / 200 Blood Product 600 / 600 Rbc Leuko Reduced Unit 300 / 300 [id number] Rbc Leuko Reduced Unit 300 / 300 [id number] Output: Urine 15 / 275 260 / 275 Other: Urine Color Yellow Yellow Urine Appearance Clear Cloudy Purulent Comment pt on menses only 15 cc's of thick purulent urine obtained upon unsertion of crockett cathand sent for HCG and UA. made aware. Difficult insertion R/T vag bleeding obstructioning veiw & appears to have a possible partial prolapse Voiding Methods Diaper Diaper Incontinent Laboratory Results WBC 4.25 k/cumm (4.4-10.8) L 09/15/18 06:40 RBC 1.52 m/cumm (4.00-5.20) L 09/15/18 06:40 Hgb 4.6 g/dL (12.0-15.5) L* 09/15/18 06:40 Hct 14.8 % (36.0-46.0) L* D 09/15/18 06:40 MCV 97.4 fL (80-95) H 09/15/18 06:40 MCH 30.3 pg (27.0-33.0) 09/15/18 06:40 MCHC 31.1 g/dL (32.0-36.0) L 09/15/18 06:40 RDW 16.0 % (11.7-14.6) H 09/15/18 06:40 Plt Count 234 x1000/uL (130-400) 09/15/18 06:40 MPV 11.1 fL (8.0-11.0) H 09/15/18 06:40 Immature Gran % 0.2 09/15/18 06:40 Neutrophils % 73.4 09/15/18 06:40 Lymphocytes % 15.8 09/15/18 06:40 Monocytes % 6.1 09/15/18 06:40 Eosinophils % 3.8 09/15/18 06:40 Basophils % 0.7 09/15/18 06:40 Absolute Neutrophils 3.12 k/cumm (1.2-6.7) 09/15/18 06:40 Absolute Lymphocytes 0.67 k/cumm (1.2-3.4) L 09/15/18 06:40 Absolute Monocytes 0.26 k/cumm (0.11-0.7) 09/15/18 06:40 Absolute Eosinophils 0.16 k/cumm (0.0-0.7) 09/15/18 06:40 Absolute Basophils 0.03 k/cumm (0.0-0.2) 09/15/18 06:40 Differential Comment Rbc morph reviewed 09/14/18 13:50 RBC Morphology See below 09/14/18 13:50 Polychromasia Present 09/14/18 13:50 Hypochromasia 1+ 09/14/18 13:50 Anisocytosis 1+ 09/14/18 13:50 Microcytosis 1+ 09/14/18 13:50 Macrocytosis 1+ 09/14/18 13:50 Retic Count 6.1 % (0.5-2.4) H 09/15/18 06:40 PT 10.4 sec (9.3-11.0) 09/14/18 13:50 INR 1.0 (0.9-1.1) 09/14/18 13:50 APTT 22.9 sec (21.0-31.4) 09/14/18 13:50 Sodium 139 mmol/L (136-145) 09/15/18 06:40 Potassium 3.6 mmol/L (3.5-5.1) 09/15/18 06:40 Chloride 105 mmol/L (98-107) 09/15/18 06:40 Carbon Dioxide 26.3 mmol/L (21.0-32.0) 09/15/18 06:40 Anion Gap 7.7 mmol/L (3-11) 09/15/18 06:40 BUN 12 mg/dL (7-18) 09/15/18 06:40 Creatinine 0.58 mg/dL (0.55-1.02) 09/15/18 06:40 Estimated GFR/1.73 m2 >= 60.00 (mL/min/1.73m2) 09/15/18 06:40 Glucose 123 mg/dL (70-100) H 09/15/18 06:40 Calcium 8.2 mg/dL (8.5-10.1) L 09/15/18 06:40 Magnesium 1.8 mg/dL (1.8-2.4) 09/15/18 06:40 Iron 35 ug/dL (50-175) L 09/15/18 06:40 TIBC 187 ug/dL (250-450) L 09/15/18 06:40 Ferritin 103 ng/mL (8-388) 09/15/18 06:40 Total Bilirubin 0.1 mg/dL (0.2-1.0) L 09/14/18 13:50 AST 14 U/L (15-37) L 09/14/18 13:50 ALT 24 U/L (12-78) 09/14/18 13:50 Alkaline Phosphatase 118 U/L (46-116) H 09/14/18 13:50 Total Protein 7.6 g/dL (6.4-8.2) 09/14/18 13:50 Albumin 2.9 g/dL (3.4-5.0) L 09/14/18 13:50 Vitamin B12 520 pg/mL (193-986) 09/15/18 06:40 Folate > 20.0 ng/mL (8.6-20.0) H 09/15/18 06:40 TSH 4.14 uIU/mL (0.358-3.74) H 09/15/18 06:40 Urine Color Yellow (Yellow) 09/15/18 08:20 Urine Clarity Cloudy 09/15/18 08:20 Urine pH 6.0 (5-8) 09/15/18 08:20 Ur Specific [place] >= 1.030 (1.005-1.025) H 09/15/18 08:20 Urine Protein >=300 mg/dL (Negative) H 09/15/18 08:20 Urine Ketones Negative mg/dL (Negative) 09/15/18 08:20 Urine Blood Moderate (Negative) H 09/15/18 08:20 Urine Nitrite Positive (Negative) H 09/15/18 08:20 Urine Bilirubin Negative (Negative) 09/15/18 08:20 Urine Urobilinogen 0.2 EU/dL (Up TO 0.2) 09/15/18 08:20 Ur Leukocyte Esterase Small (Negative) H 09/15/18 08:20 Urine RBC Not Applicable 09/15/18 08:20 Urine WBC >50 HPF (0-5) 09/15/18 08:20 Ur Epithelial Cells Not Applicable 09/15/18 08:20 Urine Crystals Not Applicable 09/15/18 08:20 Urine Bacteria Not Applicable 09/15/18 08:20 Urine Mucus Not Applicable 09/15/18 08:20 Ur Culture Indicated? Yes 09/15/18 08:20 Urine Glucose Negative mg/dL (Negative) 09/15/18 08:20 Urine HCG, Qual Negative 09/15/18 08:20 Patient ABO/Rh O Positive 09/15/18 06:40 Antibody Screen Negative 09/15/18 06:40 Crossmatch See Detail 09/15/18 06:40
[2018-09-15] MEDS: Pregabalin 25 MG CAP 75 MG PO (21:00)
[2018-09-15] MEDS: Baclofen 10 MG TAB 30 MG PO (21:01)
[2018-09-15] MEDS: clonazePAM 1 MG TAB PO (21:09)
[2018-09-16] VITALS (59 sets, daily range): BP systolic 84–160; BP diastolic 48–78; PULSE 80–119; RESP 11–27; TEMP 36.3–38.3; O2SAT 95–100
[2018-09-16] MEDS: Normal Saline Flush 10 ML SYR IVP ×4 (01:24→17:00)
[2018-09-16 01:56] LABS: HCT 28.4 % (36.0-46.0); HGB 9.5 g/dL (12.0-15.5); Mean Corp. HGB Concentration 33.5 g/dL (32.0-36.0); Mean Corpuscular Hemoglobin 30.1 pg (27.0-33.0); Mean Corpuscular Volume 89.9 fL (80-95); Mean Platelet Volume 10.6 fL (8.0-11.0); Platelet Count 195 x1000/uL (130-400); RBC 3.16 m/cumm (4.00-5.20); RBC Distribution Width 15.4 % (11.7-14.6); White Blood Cell Count 7.01 k/cumm (4.4-10.8)
[2018-09-16 02:12] LABS: INR 1.1 (0.9-1.1); PTT Activated 23.7 sec (21.0-31.4); Prothrombin Time 10.6 sec (9.3-11.0)
[2018-09-16 02:27] LABS: D-Dimer 777 ng/mlFEU (<500)
[2018-09-16] MEDS: Normal Saline 500 ML 1000 ML IV (04:27)
[2018-09-16] MEDS: Normal Saline-STERILE FIELD 0.9% 10 ML SYR (06:03)
[2018-09-16 08:11] LABS: Abs Immature Grans 0.01 k/cumm (0.0-0.09); Absolute Basophil Count 0.01 k/cumm (0.0-0.2); Absolute Eosinophil Count 0.13 k/cumm (0.0-0.7); Absolute Lymphocyte Count 0.54 k/cumm (1.2-3.4); Absolute Monocyte Count 0.29 k/cumm (0.11-0.7); Absolute Neutrophil Count 4.49 k/cumm (1.2-6.7); Basophils % 0.2; Eosinophils % 2.4; HCT 28.9 % (36.0-46.0); HGB 9.4 g/dL (12.0-15.5); Immature Grans % 0.2; Lymphocytes % 9.9; Mean Corp. HGB Concentration 32.5 g/dL (32.0-36.0); Mean Corpuscular Hemoglobin 29.5 pg (27.0-33.0); Mean Corpuscular Volume 90.6 fL (80-95); Mean Platelet Volume 10.8 fL (8.0-11.0); Monocytes % 5.3; Platelet Count 187 x1000/uL (130-400); RBC 3.19 m/cumm (4.00-5.20); RBC Distribution Width 15.9 % (11.7-14.6); White Blood Cell Count 5.47 k/cumm (4.4-10.8)
[2018-09-16] MEDS: Polyethylene Glycol 3350 17 GM PACKET PO (08:52)
[2018-09-16] MEDS: Escitalopram 20 MG TAB 10 MG PO (08:53)
[2018-09-16] MEDS: Vitamins B Comp w/C TAB 1 TAB PO (08:54)
[2018-09-16] MEDS: Cyanocobalamin 500 MCG TAB 1000 MCG PO (08:54)
[2018-09-16] MEDS: Pregabalin 25 MG CAP 75 MG PO ×2 (08:54→20:22)
[2018-09-16] MEDS: Baclofen 10 MG TAB 30 MG PO ×2 (08:54→20:22)
[2018-09-16 08:55] LABS: Anion Gap 7.5 mmol/L (3-11); BUN 9 mg/dL (7-18); CO2 26.5 mmol/L (21.0-32.0); CREATININE 0.53 mg/dL (0.55-1.02); Calcium 7.7 mg/dL (8.5-10.1); Chloride 109 mmol/L (98-107); Glucose 79 mg/dL (70-100); Magnesium 1.9 mg/dL (1.8-2.4); Potassium 3.6 mmol/L (3.5-5.1); Sodium 143 mmol/L (136-145)
--- NOTE | 2018-09-16 10:27 | W.PM.PROGNOT ---
Date of Service Date of service: 09/16/18 Time of Service: 10:27 Assessment and Plan (1) Abnormal uterine bleeding: Current visit: Yes Status: Acute Plan is to proceed with a hysterectomy. Patient is agreed to the procedure. Plan is for the type of procedure we formalized. Plan will be to contact her guardian and to obtain a verbal consent from the patient. The OR crew is aware. (2) Blood loss anemia: Current visit: Yes Status: Acute (3) Muscle spasticity: Current visit: No Status: Acute Subjective Patient reports: feels better and bowel movement (Feeling rectal pressure from the intrauterine balloon) Exam Narrative Exam Narrative: Events the past 24 hours: Patient was transfused 4 units of packed red blood cells 6 pack of platelets and has stabilization of her H&H. She has received 4 doses of Tranexemic Acid and started on high dose E2 regime. A 30cc crockett bulb was placed into the uterus and inflated. Pt had out 40cc of blood in the collection bag and passed a large blood clot this am. Oozing around the crockett bulb has decreased. U/O decreased after PRBC completed - IV fluids had been decreased. Restarted NS at 150cc/hr and NS bolus. UO has increased. VS: afebrile. BP low but pulse stable. UCx pending. Continues on ABX. Const General: cooperative and ill appearing (Less pale, more alert and awake) Nutritional Appearance: average body habitus Orientation: alert, awake and oriented x3 Limitations: physical limitations Chest Chest: normal inspection of the chest (Central line in place) Chest/axillae images: 1. central line exit site. 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 Recommended now that her H&H is stabilized that we proceed with a hysterectomy. The plan is to perform either abdominal or laparoscopic hysterectomy with the purpose of removing the tubes and ovaries in leaving the ovaries. She is agreeable to the plan Objective Objective Clinical Data: Abnormal lab results 09/15/18 09/16/18 09/16/18 Range/Units 06:40 01:45 01:45 RBC 3.16 L (4.00-5.20) m/cumm Hgb 9.5 L D (12.0-15.5) g/dL Hct 28.4 L D (36.0-46.0) % RDW 15.4 H (11.7-14.6) % Absolute Lymphocytes (1.2-3.4) k/cumm D-Dimer 777 H (<500) ng/mlFEU Chloride (98-107) mmol/L Creatinine (0.55-1.02) mg/dL Calcium (8.5-10.1) mg/dL Crossmatch See Detail 09/16/18 09/16/18 Range/Units 07:50 07:50 RBC 3.19 L (4.00-5.20) m/cumm Hgb 9.4 L (12.0-15.5) g/dL Hct 28.9 L (36.0-46.0) % RDW 15.9 H (11.7-14.6) % Absolute Lymphocytes 0.54 L (1.2-3.4) k/cumm D-Dimer (<500) ng/mlFEU Chloride 109 H (98-107) mmol/L Creatinine 0.53 L (0.55-1.02) mg/dL Calcium 7.7 L (8.5-10.1) mg/dL Crossmatch Vital Signs Temperature 98.2 F 09/16/18 02:21 Temperature Source Temporal Artery Scan 09/16/18 02:21 Pulse 90 09/16/18 10:00 Pulse Rhythm Regular 09/15/18 07:35 Pulse 92 H 09/16/18 10:00 Respiratory Rate 16 09/16/18 10:00 Respiratory Effort 09/16/18 02:21 Respiratory Depth Normal 09/16/18 02:21 Respiratory Pattern Normal 09/16/18 02:21 Blood Pressure 94/54 L 09/16/18 10:00 Blood Pressure Mean 63 04/11/19 10:00 Blood Pressure Position Supine 09/16/18 02:21 Pulse Oximetry 97 09/16/18 10:00 Oxygen Delivery Method Room Air 09/16/18 02:21 Oxygen Flow Rate 0 09/16/18 02:21 Pain Level 0 09/16/18 02:21 Comment 09/15/18 07:45 Intake & Output 09/15/18 09/15/18 09/16/18 11:59 23:59 11:59 Intake Total 1519.333 / 3852.833 2333.5 / 3852.833 626 / 626 Output Total 860 / 875 425 / 425 Balance 1504.333 / 2977.833 1473.5 / 2977.833 201 / 201 Weight 126 lb 0.013 oz 131 lb 13.383 oz Intake: IV 1319.333 / 2248.833 929.5 / 2248.833 626 / 626 Oral 200 / 360 160 / 360 Blood Product 1244 / 1244 Pheresis Platelets Unit 304 / 304 [id number] Rbc Leuko Reduced Unit 0 / 0 [id number] Rbc Leuko Reduced Unit 300 / 300 [id number] Rbc Leuko Reduced Unit 300 / 300 [id number] Rbc Leuko Reduced Unit 340 / 340 [id number] Other 0 / 0 Pheresis Platelets Unit 0 / 0 [id number] Output: Urine 860 / 875 425 / 425 Other: Urine Color Yellow Straw Straw Urine Appearance Cloudy Cloudy Sediment Purulent Purulent Comment only 15 cc's of thick purulent urine obtained upon unsertion of crockett cathand sent for HCG and UA. made aware. Difficult insertion R/T vag bleeding obstructioning veiw & appears to have a possible partial prolapse pt states that she has low abd pain due to the crockett balloons. PRN APAP was offered at this time and declined. pt states that she has low abd pain due to the crockett balloons. PRN APAP was offered at this time and declined. Stool Size Smear Stool Characteristics Soft Voiding Methods Diaper Laboratory Results WBC 5.47 k/cumm (4.4-10.8) 09/16/18 07:50 RBC 3.19 m/cumm (4.00-5.20) L 09/16/18 07:50 Hgb 9.4 g/dL (12.0-15.5) L 09/16/18 07:50 Hct 28.9 % (36.0-46.0) L 09/16/18 07:50 MCV 90.6 fL (80-95) 09/16/18 07:50 MCH 29.5 pg (27.0-33.0) 09/16/18 07:50 MCHC 32.5 g/dL (32.0-36.0) 09/16/18 07:50 RDW 15.9 % (11.7-14.6) H 09/16/18 07:50 Plt Count 187 x1000/uL (130-400) 09/16/18 07:50 MPV 10.8 fL (8.0-11.0) 09/16/18 07:50 Immature Gran % 0.2 09/16/18 07:50 Neutrophils % 82.0 09/16/18 07:50 Lymphocytes % 9.9 09/16/18 07:50 Monocytes % 5.3 09/16/18 07:50 Eosinophils % 2.4 09/16/18 07:50 Basophils % 0.2 09/16/18 07:50 Absolute Neutrophils 4.49 k/cumm (1.2-6.7) 09/16/18 07:50 Absolute Lymphocytes 0.54 k/cumm (1.2-3.4) L 09/16/18 07:50 Absolute Monocytes 0.29 k/cumm (0.11-0.7) 09/16/18 07:50 Absolute Eosinophils 0.13 k/cumm (0.0-0.7) 09/16/18 07:50 Absolute Basophils 0.01 k/cumm (0.0-0.2) 09/16/18 07:50 Differential Comment Rbc morph reviewed 09/14/18 13:50 RBC Morphology See below 09/14/18 13:50 Polychromasia Present 09/14/18 13:50 Hypochromasia 1+ 09/14/18 13:50 Anisocytosis 1+ 09/14/18 13:50 Microcytosis 1+ 09/14/18 13:50 Macrocytosis 1+ 09/14/18 13:50 Retic Count 6.1 % (0.5-2.4) H 09/15/18 06:40 PT 10.6 sec (9.3-11.0) 09/16/18 01:45 INR 1.1 (0.9-1.1) 09/16/18 01:45 APTT 23.7 sec (21.0-31.4) 09/16/18 01:45 D-Dimer 777 ng/mlFEU (<500) H 09/16/18 01:45 Sodium 143 mmol/L (136-145) 09/16/18 07:50 Potassium 3.6 mmol/L (3.5-5.1) 09/16/18 07:50 Chloride 109 mmol/L (98-107) H 09/16/18 07:50 Carbon Dioxide 26.5 mmol/L (21.0-32.0) 09/16/18 07:50 Anion Gap 7.5 mmol/L (3-11) 09/16/18 07:50 BUN 9 mg/dL (7-18) 09/16/18 07:50 Creatinine 0.53 mg/dL (0.55-1.02) L 09/16/18 07:50 Estimated GFR/1.73 m2 >= 60.00 (mL/min/1.73m2) 09/16/18 07:50 Glucose 79 mg/dL (70-100) 09/16/18 07:50 Calcium 7.7 mg/dL (8.5-10.1) L 09/16/18 07:50 Magnesium 1.9 mg/dL (1.8-2.4) 09/16/18 07:50 Iron 35 ug/dL (50-175) L 09/15/18 06:40 TIBC 187 ug/dL (250-450) L 09/15/18 06:40 Ferritin 103 ng/mL (8-388) 09/15/18 06:40 Total Bilirubin 0.1 mg/dL (0.2-1.0) L 09/14/18 13:50 AST 14 U/L (15-37) L 09/14/18 13:50 ALT 24 U/L (12-78) 09/14/18 13:50 Alkaline Phosphatase 118 U/L (46-116) H 09/14/18 13:50 Total Protein 7.6 g/dL (6.4-8.2) 09/14/18 13:50 Albumin 2.9 g/dL (3.4-5.0) L 09/14/18 13:50 Vitamin B12 520 pg/mL (193-986) 09/15/18 06:40 Folate > 20.0 ng/mL (8.6-20.0) H 09/15/18 06:40 TSH 4.14 uIU/mL (0.358-3.74) H 09/15/18 06:40 Urine Color Yellow (Yellow) 09/15/18 08:20 Urine Clarity Cloudy 09/15/18 08:20 Urine pH 6.0 (5-8) 09/15/18 08:20 Ur Specific [place] >= 1.030 (1.005-1.025) H 09/15/18 08:20 Urine Protein >=300 mg/dL (Negative) H 09/15/18 08:20 Urine Ketones Negative mg/dL (Negative) 09/15/18 08:20 Urine Blood Moderate (Negative) H 09/15/18 08:20 Urine Nitrite Positive (Negative) H 09/15/18 08:20 Urine Bilirubin Negative (Negative) 09/15/18 08:20 Urine Urobilinogen 0.2 EU/dL (Up TO 0.2) 09/15/18 08:20 Ur Leukocyte Esterase Small (Negative) H 09/15/18 08:20 Urine RBC Not Applicable 09/15/18 08:20 Urine WBC >50 HPF (0-5) 09/15/18 08:20 Ur Epithelial Cells Not Applicable 09/15/18 08:20 Urine Crystals Not Applicable 09/15/18 08:20 Urine Bacteria Not Applicable 09/15/18 08:20 Urine Mucus Not Applicable 09/15/18 08:20 Ur Culture Indicated? Yes 09/15/18 08:20 Urine Glucose Negative mg/dL (Negative) 09/15/18 08:20 Urine HCG, Qual Negative 09/15/18 08:20 Patient ABO/Rh O Positive 09/15/18 06:40 Antibody Screen Negative 09/15/18 06:40 Crossmatch See Detail 09/15/18 06:40
[2018-09-16 11:22] LABS: Lactate-non-spesis 0.5 mmol/l (0.6-1.4)
[2018-09-16] MEDS: Dextrose 50%-Water 25 GM/50 ML SYR IVP (12:06)
[2018-09-16 12:20] LABS: Haptoglobin 226 mg/dL (32-197)
--- NOTE | 2018-09-16 12:23 | W.PM.PROGNOT ---
Date of Service Date of service: 09/16/18 Time of Service: 12:24 Subjective Interval history since last seen: Informed consent for FANNY/bilateral salpingectomy obtained from pt and pt's guarding. Risks of procedure were explained to pt and to pt's guarding by phone. I reviewed risks of bleeding, infection damage to bowel,bladder, ureters and blood vessels. She is aware that she may require more blood products and has agreed to a transfusion if required. Objective Objective Clinical Data: Abnormal lab results 09/15/18 09/16/18 09/16/18 Range/Units 06:40 01:45 01:45 RBC 3.16 L (4.00-5.20) m/cumm Hgb 9.5 L D (12.0-15.5) g/dL Hct 28.4 L D (36.0-46.0) % RDW 15.4 H (11.7-14.6) % Absolute Lymphocytes (1.2-3.4) k/cumm D-Dimer 777 H (<500) ng/mlFEU Chloride (98-107) mmol/L Creatinine (0.55-1.02) mg/dL Lactate (0.6-1.4) mmol/l Calcium (8.5-10.1) mg/dL Crossmatch See Detail 09/16/18 09/16/18 09/16/18 Range/Units 07:50 07:50 10:58 RBC 3.19 L (4.00-5.20) m/cumm Hgb 9.4 L (12.0-15.5) g/dL Hct 28.9 L (36.0-46.0) % RDW 15.9 H (11.7-14.6) % Absolute Lymphocytes 0.54 L (1.2-3.4) k/cumm D-Dimer (<500) ng/mlFEU Chloride 109 H (98-107) mmol/L Creatinine 0.53 L (0.55-1.02) mg/dL Lactate 0.5 L (0.6-1.4) mmol/l Calcium 7.7 L (8.5-10.1) mg/dL Crossmatch Vital Signs Temperature 98.2 F 09/16/18 11:47 Temperature Source Tympanic 09/16/18 11:47 Pulse 94 H 09/16/18 11:30 Pulse Rhythm Regular 09/15/18 07:35 Pulse 95 H 09/16/18 11:30 Respiratory Rate 19 09/16/18 11:30 Respiratory Effort 09/16/18 11:47 Respiratory Depth Normal 09/16/18 11:47 Respiratory Pattern Normal 09/16/18 11:47 Blood Pressure 100/60 09/16/18 11:30 Blood Pressure Mean 69 09/16/18 11:30 Blood Pressure Position Supine 09/16/18 02:21 Pulse Oximetry 97 09/16/18 11:47 Oxygen Delivery Method Room Air 09/16/18 11:47 Oxygen Flow Rate 0 09/16/18 11:47 Pain Level 0 09/16/18 11:47 Comment 09/15/18 07:45 Intake & Output 09/15/18 09/16/18 09/16/18 23:59 11:59 23:59 Intake Total 2333.5 / 3852.833 836 / 836 Output Total 860 / 875 425 / 775 350 / 775 Balance 1473.5 / 2977.833 411 / 61 -350 / 61 Weight 131 lb 13.383 oz Intake: IV 929.5 / 2248.833 626 / 626 Oral 160 / 360 210 / 210 Blood Product 1244 / 1244 Pheresis Platelets Unit 304 / 304 [id number] Rbc Leuko Reduced Unit 0 / 0 [id number] Rbc Leuko Reduced Unit 300 / 300 [id number] Rbc Leuko Reduced Unit 300 / 300 [id number] Rbc Leuko Reduced Unit 340 / 340 [id number] Other 0 / 0 Pheresis Platelets Unit 0 / 0 [id number] Output: Urine 860 / 875 425 / 775 350 / 775 Other: Urine Color Straw Straw Yellow Urine Appearance Cloudy Sediment Sediment Purulent Purulent Comment pt states that she has low abd pain due to the crockett balloons. PRN APAP was offered at this time and declined. Urinary output 56cc/hr over 4 hours. Stool Size Smear Stool Characteristics Soft Laboratory Results WBC 5.47 k/cumm (4.4-10.8) 09/16/18 07:50 RBC 3.19 m/cumm (4.00-5.20) L 09/16/18 07:50 Hgb 9.4 g/dL (12.0-15.5) L 09/16/18 07:50 Hct 28.9 % (36.0-46.0) L 09/16/18 07:50 MCV 90.6 fL (80-95) 09/16/18 07:50 MCH 29.5 pg (27.0-33.0) 09/16/18 07:50 MCHC 32.5 g/dL (32.0-36.0) 09/16/18 07:50 RDW 15.9 % (11.7-14.6) H 09/16/18 07:50 Plt Count 187 x1000/uL (130-400) 09/16/18 07:50 MPV 10.8 fL (8.0-11.0) 09/16/18 07:50 Immature Gran % 0.2 09/16/18 07:50 Neutrophils % 82.0 09/16/18 07:50 Lymphocytes % 9.9 09/16/18 07:50 Monocytes % 5.3 09/16/18 07:50 Eosinophils % 2.4 09/16/18 07:50 Basophils % 0.2 09/16/18 07:50 Absolute Neutrophils 4.49 k/cumm (1.2-6.7) 09/16/18 07:50 Absolute Lymphocytes 0.54 k/cumm (1.2-3.4) L 09/16/18 07:50 Absolute Monocytes 0.29 k/cumm (0.11-0.7) 09/16/18 07:50 Absolute Eosinophils 0.13 k/cumm (0.0-0.7) 09/16/18 07:50 Absolute Basophils 0.01 k/cumm (0.0-0.2) 09/16/18 07:50 Differential Comment Rbc morph reviewed 09/14/18 13:50 RBC Morphology See below 09/14/18 13:50 Polychromasia Present 09/14/18 13:50 Hypochromasia 1+ 09/14/18 13:50 Anisocytosis 1+ 09/14/18 13:50 Microcytosis 1+ 09/14/18 13:50 Macrocytosis 1+ 09/14/18 13:50 Retic Count 6.1 % (0.5-2.4) H 09/15/18 06:40 PT 10.6 sec (9.3-11.0) 09/16/18 01:45 INR 1.1 (0.9-1.1) 09/16/18 01:45 APTT 23.7 sec (21.0-31.4) 09/16/18 01:45 D-Dimer 777 ng/mlFEU (<500) H 09/16/18 01:45 Sodium 143 mmol/L (136-145) 09/16/18 07:50 Potassium 3.6 mmol/L (3.5-5.1) 09/16/18 07:50 Chloride 109 mmol/L (98-107) H 09/16/18 07:50 Carbon Dioxide 26.5 mmol/L (21.0-32.0) 09/16/18 07:50 Anion Gap 7.5 mmol/L (3-11) 09/16/18 07:50 BUN 9 mg/dL (7-18) 09/16/18 07:50 Creatinine 0.53 mg/dL (0.55-1.02) L 09/16/18 07:50 Estimated GFR/1.73 m2 >= 60.00 (mL/min/1.73m2) 09/16/18 07:50 Glucose 79 mg/dL (70-100) 09/16/18 07:50 Lactate 0.5 mmol/l (0.6-1.4) L 09/16/18 10:58 Calcium 7.7 mg/dL (8.5-10.1) L 09/16/18 07:50 Magnesium 1.9 mg/dL (1.8-2.4) 09/16/18 07:50 Iron 35 ug/dL (50-175) L 09/15/18 06:40 TIBC 187 ug/dL (250-450) L 09/15/18 06:40 Ferritin 103 ng/mL (8-388) 09/15/18 06:40 Total Bilirubin 0.1 mg/dL (0.2-1.0) L 09/14/18 13:50 AST 14 U/L (15-37) L 09/14/18 13:50 ALT 24 U/L (12-78) 09/14/18 13:50 Alkaline Phosphatase 118 U/L (46-116) H 09/14/18 13:50 Total Protein 7.6 g/dL (6.4-8.2) 09/14/18 13:50 Albumin 2.9 g/dL (3.4-5.0) L 09/14/18 13:50 Vitamin B12 520 pg/mL (193-986) 09/15/18 06:40 Folate > 20.0 ng/mL (8.6-20.0) H 09/15/18 06:40 TSH 4.14 uIU/mL (0.358-3.74) H 09/15/18 06:40 Urine Color Yellow (Yellow) 09/15/18 08:20 Urine Clarity Cloudy 09/15/18 08:20 Urine pH 6.0 (5-8) 09/15/18 08:20 Ur Specific [place] >= 1.030 (1.005-1.025) H 09/15/18 08:20 Urine Protein >=300 mg/dL (Negative) H 09/15/18 08:20 Urine Ketones Negative mg/dL (Negative) 09/15/18 08:20 Urine Blood Moderate (Negative) H 09/15/18 08:20 Urine Nitrite Positive (Negative) H 09/15/18 08:20 Urine Bilirubin Negative (Negative) 09/15/18 08:20 Urine Urobilinogen 0.2 EU/dL (Up TO 0.2) 09/15/18 08:20 Ur Leukocyte Esterase Small (Negative) H 09/15/18 08:20 Urine RBC Not Applicable 09/15/18 08:20 Urine WBC >50 HPF (0-5) 09/15/18 08:20 Ur Epithelial Cells Not Applicable 09/15/18 08:20 Urine Crystals Not Applicable 09/15/18 08:20 Urine Bacteria Not Applicable 09/15/18 08:20 Urine Mucus Not Applicable 09/15/18 08:20 Ur Culture Indicated? Yes 09/15/18 08:20 Urine Glucose Negative mg/dL (Negative) 09/15/18 08:20 Urine HCG, Qual Negative 09/15/18 08:20 Patient ABO/Rh O Positive 09/15/18 06:40 Antibody Screen Negative 09/15/18 06:40 Crossmatch See Detail 09/15/18 06:40
--- NOTE | 2018-09-16 12:26 | PGE_ITS ---
Date of Service Date of service: 09/16/18 Time of Service: 12:24 Subjective Interval history since last seen: Informed consent for FANNY/bilateral salpingectomy obtained from pt and pt's guarding. Risks of procedure were explained to pt and to pt's guarding by phone. I reviewed risks of bleeding, infection damage to bowel,bladder, ureters and blood vessels. She is aware that she may require more blood products and has agreed to a transfusion if required. Objective Objective Clinical Data: Abnormal lab results 09/15/18 09/16/18 09/16/18 Range/Units 06:40 01:45 01:45 RBC 3.16 L (4.00-5.20) m/cumm Hgb 9.5 L D (12.0-15.5) g/dL Hct 28.4 L D (36.0-46.0) % RDW 15.4 H (11.7-14.6) % Absolute Lymphocytes (1.2-3.4) k/cumm D-Dimer 777 H (<500) ng/mlFEU Chloride (98-107) mmol/L Creatinine (0.55-1.02) mg/dL Lactate (0.6-1.4) mmol/l Calcium (8.5-10.1) mg/dL Crossmatch See Detail 09/16/18 09/16/18 09/16/18 Range/Units 07:50 07:50 10:58 RBC 3.19 L (4.00-5.20) m/cumm Hgb 9.4 L (12.0-15.5) g/dL Hct 28.9 L (36.0-46.0) % RDW 15.9 H (11.7-14.6) % Absolute Lymphocytes 0.54 L (1.2-3.4) k/cumm D-Dimer (<500) ng/mlFEU Chloride 109 H (98-107) mmol/L Creatinine 0.53 L (0.55-1.02) mg/dL Lactate 0.5 L (0.6-1.4) mmol/l Calcium 7.7 L (8.5-10.1) mg/dL Crossmatch Vital Signs Temperature 98.2 F 09/16/18 11:47 Temperature Source Tympanic 09/16/18 11:47 Pulse 94 H 09/16/18 11:30 Pulse Rhythm Regular 09/15/18 07:35 Pulse 95 H 09/16/18 11:30 Respiratory Rate 19 09/16/18 11:30 Respiratory Effort 09/16/18 11:47 Respiratory Depth Normal 09/16/18 11:47 Respiratory Pattern Normal 09/16/18 11:47 Blood Pressure 100/60 09/16/18 11:30 Blood Pressure Mean 69 09/16/18 11:30 Blood Pressure Position Supine 09/16/18 02:21 Pulse Oximetry 97 09/16/18 11:47 Oxygen Delivery Method Room Air 09/16/18 11:47 Oxygen Flow Rate 0 09/16/18 11:47 Pain Level 0 09/16/18 11:47 Comment 09/15/18 07:45 Intake & Output 09/15/18 09/16/18 09/16/18 23:59 11:59 23:59 Intake Total 2333.5 / 3852.833 836 / 836 Output Total 860 / 875 425 / 775 350 / 775 Balance 1473.5 / 2977.833 411 / 61 -350 / 61 Weight 131 lb 13.383 oz Intake: IV 929.5 / 2248.833 626 / 626 Oral 160 / 360 210 / 210 Blood Product 1244 / 1244 Pheresis Platelets Unit 304 / 304 [id number] Rbc Leuko Reduced Unit 0 / 0 [id number] Rbc Leuko Reduced Unit 300 / 300 [id number] Rbc Leuko Reduced Unit 300 / 300 [id number] Rbc Leuko Reduced Unit 340 / 340 [id number] Other 0 / 0 Pheresis Platelets Unit 0 / 0 [id number] Output: Urine 860 / 875 425 / 775 350 / 775 Other: Urine Color Straw Straw Yellow Urine Appearance Cloudy Sediment Sediment Purulent Purulent Comment pt states that she has low abd pain due to the crockett balloons. PRN APAP was offered at this time and declined. Urinary output 56cc/hr over 4 hours. Stool Size Smear Stool Characteristics Soft Laboratory Results WBC 5.47 k/cumm (4.4-10.8) 09/16/18 07:50 RBC 3.19 m/cumm (4.00-5.20) L 09/16/18 07:50 Hgb 9.4 g/dL (12.0-15.5) L 09/16/18 07:50 Hct 28.9 % (36.0-46.0) L 09/16/18 07:50 MCV 90.6 fL (80-95) 09/16/18 07:50 MCH 29.5 pg (27.0-33.0) 09/16/18 07:50 MCHC 32.5 g/dL (32.0-36.0) 09/16/18 07:50 RDW 15.9 % (11.7-14.6) H 09/16/18 07:50 Plt Count 187 x1000/uL (130-400) 09/16/18 07:50 MPV 10.8 fL (8.0-11.0) 09/16/18 07:50 Immature Gran % 0.2 09/16/18 07:50 Neutrophils % 82.0 09/16/18 07:50 Lymphocytes % 9.9 09/16/18 07:50 Monocytes % 5.3 09/16/18 07:50 Eosinophils % 2.4 09/16/18 07:50 Basophils % 0.2 09/16/18 07:50 Absolute Neutrophils 4.49 k/cumm (1.2-6.7) 09/16/18 07:50 Absolute Lymphocytes 0.54 k/cumm (1.2-3.4) L 09/16/18 07:50 Absolute Monocytes 0.29 k/cumm (0.11-0.7) 09/16/18 07:50 Absolute Eosinophils 0.13 k/cumm (0.0-0.7) 09/16/18 07:50 Absolute Basophils 0.01 k/cumm (0.0-0.2) 09/16/18 07:50 Differential Comment Rbc morph reviewed 09/14/18 13:50 RBC Morphology See below 09/14/18 13:50 Polychromasia Present 09/14/18 13:50 Hypochromasia 1+ 09/14/18 13:50 Anisocytosis 1+ 09/14/18 13:50 Microcytosis 1+ 09/14/18 13:50 Macrocytosis 1+ 09/14/18 13:50 Retic Count 6.1 % (0.5-2.4) H 09/15/18 06:40 PT 10.6 sec (9.3-11.0) 09/16/18 01:45 INR 1.1 (0.9-1.1) 09/16/18 01:45 APTT 23.7 sec (21.0-31.4) 09/16/18 01:45 D-Dimer 777 ng/mlFEU (<500) H 09/16/18 01:45 Sodium 143 mmol/L (136-145) 09/16/18 07:50 Potassium 3.6 mmol/L (3.5-5.1) 09/16/18 07:50 Chloride 109 mmol/L (98-107) H 09/16/18 07:50 Carbon Dioxide 26.5 mmol/L (21.0-32.0) 09/16/18 07:50 Anion Gap 7.5 mmol/L (3-11) 09/16/18 07:50 BUN 9 mg/dL (7-18) 09/16/18 07:50 Creatinine 0.53 mg/dL (0.55-1.02) L 09/16/18 07:50 Estimated GFR/1.73 m2 >= 60.00 (mL/min/1.73m2) 09/16/18 07:50 Glucose 79 mg/dL (70-100) 09/16/18 07:50 Lactate 0.5 mmol/l (0.6-1.4) L 09/16/18 10:58 Calcium 7.7 mg/dL (8.5-10.1) L 09/16/18 07:50 Magnesium 1.9 mg/dL (1.8-2.4) 09/16/18 07:50 Iron 35 ug/dL (50-175) L 09/15/18 06:40 TIBC 187 ug/dL (250-450) L 09/15/18 06:40 Ferritin 103 ng/mL (8-388) 09/15/18 06:40 Total Bilirubin 0.1 mg/dL (0.2-1.0) L 09/14/18 13:50 AST 14 U/L (15-37) L 09/14/18 13:50 ALT 24 U/L (12-78) 09/14/18 13:50 Alkaline Phosphatase 118 U/L (46-116) H 09/14/18 13:50 Total Protein 7.6 g/dL (6.4-8.2) 09/14/18 13:50 Albumin 2.9 g/dL (3.4-5.0) L 09/14/18 13:50 Vitamin B12 520 pg/mL (193-986) 09/15/18 06:40 Folate > 20.0 ng/mL (8.6-20.0) H 09/15/18 06:40 TSH 4.14 uIU/mL (0.358-3.74) H 09/15/18 06:40 Urine Color Yellow (Yellow) 09/15/18 08:20 Urine Clarity Cloudy 09/15/18 08:20 Urine pH 6.0 (5-8) 09/15/18 08:20 Ur Specific [place] >= 1.030 (1.005-1.025) H 09/15/18 08:20 Urine Protein >=300 mg/dL (Negative) H 09/15/18 08:20 Urine Ketones Negative mg/dL (Negative) 09/15/18 08:20 Urine Blood Moderate (Negative) H 09/15/18 08:20 Urine Nitrite Positive (Negative) H 09/15/18 08:20 Urine Bilirubin Negative (Negative) 09/15/18 08:20 Urine Urobilinogen 0.2 EU/dL (Up TO 0.2) 09/15/18 08:20 Ur Leukocyte Esterase Small (Negative) H 09/15/18 08:20 Urine RBC Not Applicable 09/15/18 08:20 Urine WBC >50 HPF (0-5) 09/15/18 08:20 Ur Epithelial Cells Not Applicable 09/15/18 08:20 Urine Crystals Not Applicable 09/15/18 08:20 Urine Bacteria Not Applicable 09/15/18 08:20 Urine Mucus Not Applicable 09/15/18 08:20 Ur Culture Indicated? Yes 09/15/18 08:20 Urine Glucose Negative mg/dL (Negative) 09/15/18 08:20 Urine HCG, Qual Negative 09/15/18 08:20 Patient ABO/Rh O Positive 09/15/18 06:40 Antibody Screen Negative 09/15/18 06:40 Crossmatch See Detail 09/15/18 06:40
--- NOTE | 2018-09-16 12:26 | PDOC.CMPRO ---
- If Service Date Differs Date of service: 09/16/18 Time of Service: 12:26 Care Management Progress Note S/O: Ethel is lying in bed when this sheet writer visits this morning. She is pleasant and receptive to discussion. Ethel states that she met with Dr. Berry this morning and will be having a hysterectomy today. CM spoke with Dr. Berry and facilitated discussion with Ethel's guardian Jacy in regards to consent for surgery. Ethel discusses her Aunt Jacy, Mom, and two daughters visiting, and appreciating their support. A: 37 y/o female admitted 09/14/18 for blood loss anemia. P: Ethel will go to the OR today for a Hysterectomy with Dr. Berry. Once medically cleared she will return to [facility] once medically cleared. Ethel will transport via w/c van when ready.
--- NOTE | 2018-09-16 12:59 | CMPROGNOTE_ITS ---
- If Service Date Differs Date of service: 09/16/18 Time of Service: 12:26 Care Management Progress Note S/O: Ethel is lying in bed when this advertising copy writer visits this morning. She is pleasant and receptive to discussion. Ethel states that she met with Dr. Berry this morning and will be having a hysterectomy today. CM spoke with Dr. Berry and facilitated discussion with Ethel's guardian Jacy in regards to consent for surgery. Ethel discusses her Aunt Jacy, Mom, and two daught ers visiting, and appreciating their support. A: 37 y/o female admitted 09/14/18 for blood loss anemia. P: Ethel will go to the OR today for a Hysterectomy with Dr. Berry. Once medically cleared she will return to [facility] [place] [facility] once medically cleared. Ethel will transport via w/c van when ready.
[2018-09-16] MEDS: ELECTROLYTE-R SOLUTION 1,000 ML 30 ML IV ×2 (13:03→16:00)
--- NOTE | 2018-09-16 14:15 | UTER_PTH ---
PATIENT: Ethel Salamanca LOC: ICU U#:[id number] AGE/SX: 37/F ROOM: ICU.222 RE09/14/[address]: Ivan Malave MD : 1980 BED: A DIS: 09/20/2018 SPEC #: [id number] RECD: 09/16/18 17:18 STATUS: GIFTY REQiana #: [id number] ADONIS: 09/16/18 14:[address]: Ivan Malave DEPT: Surgical Specimen RECD BY: Peg Montesinos ENTERED: 09/16/18 17:19 SP TYPE: UTER OTHR DR: Helen Leung Tissues: 1 - UTERUS W OR W/O OVARIES(NOT TUMOR/PROLAPSE) 2 - FALLOPIAN TUBE (OTHER) Procedures: GROSS AND MICRO LEVEL 5 Comments: [id number]
[2018-09-16 16:18] LABS: Abs Immature Grans 0.02 k/cumm (0.0-0.09); Absolute Basophil Count 0.02 k/cumm (0.0-0.2); Absolute Eosinophil Count 0.14 k/cumm (0.0-0.7); Absolute Lymphocyte Count 0.63 k/cumm (1.2-3.4); Absolute Monocyte Count 0.32 k/cumm (0.11-0.7); Basophils % 0.3; Eosinophils % 1.8; HCT 33.3 % (36.0-46.0); HGB 11.2 g/dL (12.0-15.5); Immature Grans % 0.3; Mean Corp. HGB Concentration 33.6 g/dL (32.0-36.0); Mean Corpuscular Hemoglobin 30.2 pg (27.0-33.0); Mean Corpuscular Volume 89.8 fL (80-95); Mean Platelet Volume 10.7 fL (8.0-11.0); Monocytes % 4.1; Neutrophils % 85.5; Platelet Count 170 x1000/uL (130-400); RBC 3.71 m/cumm (4.00-5.20); RBC Distribution Width 15.2 % (11.7-14.6); White Blood Cell Count 7.85 k/cumm (4.4-10.8)
[2018-09-16 16:23] LABS: Absolute Neutrophil Count 6.71 k/cumm (1.2-6.7)
--- NOTE | 2018-09-16 16:39 | ROE_ITS ---
Date of service: 09/16/18 Time of Service: 16:38 Operative Note DATE OF PROCEDURE: 09/16/18 PRE-OP DIAGNOSIS: Abnormal uterine bleeding POST-OP DIAGNOSIS: same PROCEDURE: Abdominal hysterectomy with bilateral salpingectomy SURGEON: Maddy Berry ASSISTING SURGEON: Archana Boss COURTESY VAN DRIVER: Chante Wick ANESTHESIA: GETA and local (1% Lidocaine) ESTIMATED BLOOD LOSS: 600 PATHOLOGY: other (Uterus bilateral fallopian tubes to pathology) COMPLICATIONS: None Patient was transported to: ICU Patient's condition: stable Indications: 37-year-old female with abnormal uterine bleeding resulting in anemia, and hypotension. Findings: Uterus small with normal-appearing ovaries and fallopian tubes. There were adhesions of the fallopian tubes to the cecum and the posterior serosal surface of the uterus to the small intestines. The uterus was small, and soft and serosal and intramural tissue tore easily when handled. There were clots within the uterine cavity but no evidence of a intra-cavitary mass. There was no evidence of pelvic masses. Patient procedure patient was taken to the operating room where she is placed in the dorsal supine position with her right lower extremity supported and partially extended in a neurologically neutral position. SCDs were in place during the entire case. She was successfully intubated and general endotracheal anesthesia was administered without difficulty. The abdomen and the vagina were prepped in the usual sterile fashion. I will was used to make a Pfannenstiel skin incision and the underlying subcutaneous changes tissue was dissected using Bovie electrocautery to the level of the rectus fascia. The rectus fascia was then nicked in the midline a nd the fascial incision extended laterally with blunt technique. 2 chava clamps were applied to the superior aspect of this incision and the rectus muscles dissected off of the overlying rectus fascia using Bovie electrocautery similar technique was carried out on the inferior aspect of this incision. The muscles were in the midline the peritoneum was entered bluntly and the incision was extended using blunt technique. Upon entry into the pelvis small amount of serosanguineous drainage was present no evidence of blood clots within the pelvis. Attempted to grasp the uterine fundus with the single-tooth tenaculum resulted in the uterine serosa and myometrium ripping and small amount of organized blood clots were released from the uterine cavity. The bowels were pack away with moist laparotomy sponges and a Brittany clamp was placed across the right and left uterine cornua respectively and used for retraction. The round ligaments on both sides were clamped transected and suture ligated with 0 Vicryl. However this also resulted in considerable bleeding from the peritoneal surface of the proximal pedicle. Began using the LigaSure bipolar device clamp cauterized and transect the anterior leaf of the broad ligament bilaterally. This was was carried out to the level of the the bladder reflection where Bovie electrocautery was used from both sides uterine vessels to dissected the bladder off of the lower uterine segment and the cervix. Attempt at digital dissection resulted in significant blood loss, once again from the peritoneal surface. The uterosacral ligaments were clamped bilaterally transected with electrocautery to the level of the vaginal cervix interface. The vaginal tissue was clamped with 2 curved Dre clamps and the cervix amputated using the LigaSure device. Attempt to closing the vaginal cuff using 0 Vicryl resulted in the suture tearing through the tissue so the vaginal cuff was closed with a series of running locked sutures of 2-0 Vicryl. Once hemostasis at the vaginal cuff had been obtained the bladder flap was carefully inspected and noted to be hemostatic attention was turned to the patient's right fallopian tube which remained adherent to the uterine ovarian ligament. LigaSure device was used to sequentially clamp cauterized and transected the right fallopian tube which was passed off of the operative field. A similar technique was carried out on the left fallopian tube with care taken to dissected off of the serosal surface of the bowel. All pedicles were inspected noted to be hemostatic the pelvis was copiously i rrigated with normal saline and the laparotomypacks were removed. Peritoneum was closed with a running suture of 2-0 Vicryl the rectus fascia was reapproximated with a running suture of 0 Vicryl extending from the lateral margins and overlapping in the midline sub-cutaneous tissue was reapproximated with running suture of 2-0 Vicryl and the skin closed with a subcuticular closure of 4-0 Vicryl. All sponge lap and needle counts were correct x2 patient received 2 g of Ancef prior to skin incision. She was successfully awakened extubated and transported to recovery area in stable condition.
--- NOTE | 2018-09-16 16:39 | W.PM.OP ---
Operative Note DATE OF PROCEDURE: 09/15/18 POST-OP DIAGNOSIS: same SURGEON: Roma Yan ANESTHESIA: local (1% Lidocaine) ESTIMATED BLOOD LOSS: 5 PATHOLOGY: none sent Patient was transported to: no change Patient's condition: critical
[2018-09-16] MEDS: Normal Saline 1,000 ML 150 ML IV (16:59)
[2018-09-16 17:36] LABS: Fibrinogen 372 mg/dl (171-384)
[2018-09-16] MEDS: cefTRIAXone 1 GM/50 ML BAG IVPB (17:44)
--- NOTE | 2018-09-16 18:22 | DI.US_ITS ---
SYMPTOM/DIAGNOSIS: ACUTE ONSET OF HYPOTENSION, H/O DVT DUPLEX VENOUS ULTRASOUND BILATERAL LOWER EXTREMITIES: The study was carried out according to the usual protocol. The superficial, femoral, popliteal and proximal trifurcation in the superior portion of the legs are well seen. Good compressibility is noted throughout. Flow is demonstrated and flow augmentation was easily elicited with calf compression. SUMMARY: There is no evidence of DVT in either lower extremity.
--- NOTE | 2018-09-16 18:33 | DI.VRAD_ITS ---
EXAM: US Duplex Bilateral Lower Extremity Veins EXAM DATE/TIME: 09/16/2018 6:22 PM CLINICAL HISTORY: 37 years old, female; Signs and symptoms; Other: Acute onset of hypotension, h/o dvt TECHNIQUE: Imaging protocol: Real-time duplex ultrasound of the Bilateral Lower Extremities with 2-D mckenzie scale, color Doppler flow and spectral waveform analysis. Complete exam focused on the bilateral lower extremity veins. COMPARISON: No relevant prior studies available. FINDINGS: Right deep veins: Unremarkable. The common femoral, femoral, proximal profunda femoral and popliteal veins are patent without thrombus. Normal Doppler waveforms. Normal compressibility and/or augmentation response. Right superficial veins: Saphenofemoral junction is patent without thrombus. Left deep veins: Unremarkable. The common femoral, femoral, proximal profunda femoral and popliteal veins are patent without thrombus. Normal Doppler waveforms. Normal compressibility and/or augmentation response. Left superficial veins: Saphenofemoral junction is patent without thrombus. Soft tissues: Unremarkable. Other findings: Patient's physical limitations slightly compromises the exam. IMPRESSION: Slightly limited exam. No evidence for DVT. COMMENT: Preliminary interpretation is based on receipt of 48 image(s). A final report will be issued subsequently. Dictated and Authenticated by: Ana Luisa Adam MD. Ordering:SAIDA Siddiqui MD
--- NOTE | 2018-09-16 19:31 | W.PM.PROGNOT ---
Date of Service Date of service: 09/16/18 Time of Service: 07:20 Assessment and Plan (1) Blood loss anemia: Current visit: No Status: Acute improved post transfusion. s/p total abdominal hysterectomy. Monitor posteroperatively in the ICU. I would not give her any additional iron since she is getting blood transfusion. (2) Abnormal uterine bleeding: Current visit: No Status: Acute S/p total abdominal hysterectomy today. Defer to primary team. (3) UTI (urinary tract infection): Current visit: No Status: Acute GNR UTI POA - Previously grew E. Coli and tolerated rocephin - await C&S. Continue rocephin. (4) Neurogenic bladder: Current visit: No Status: Acute s/p crockett - evidently has a UTI. see above (5) Hemochromatosis: Current visit: No Status: Chronic As above (6) Type 2 diabetes mellitus with hyperglycemia: Current visit: No Status: Chronic Her A1C is not a reliable indicator of sugars in setting of acute anemia. 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 (9) DVT (deep venous thrombosis): Current visit: No Status: Resolved Holding eliquis. No evidence of DVT per venous doppler today. I would consider not resuming the anticoagulation at all. Will research any hem/onc notes. (10) Discharge planning issues: Current visit: No Status: Acute Full code To remain in the ICU (11) DVT prophylaxis: Current visit: No Status: Acute Eliquis on hold. Ok to use TEDs/SCD's Subjective Interval history since last seen: Ms Salamanca did well overnight. She completed the transfusion of 4 units of pRBC's as well as 1 plt pheresis. No shortness of breath post transfusion. Denied dizziness, chest pain, nausea, vomiting. Ms Salamanca stated she had a lot of thoughts but would not share them with me. Since then she is s/p total abdominal hysterectomy. EBL is 600 cc. Exam Narrative Exam Narrative: General: frail middle aged female, less pale, laying comfortably in bed Neuro: A&OX3, contracted BLE's; able to move BUE's Psych: appropriate speech pattern/content Skin: dry lips HEENT: EOMI, dry MMM, R neck incision well healed. No goiter. Heart: RRR, no m/r/g, mildly tachycardic Lungs: CTAB GI: abdomen is soft, nontender, nondistended Extremities: no e/c/c BLE's; 1+ pedal pulses B; contracted Objective Objective Clinical Data: Abnormal lab results 09/15/18 09/16/18 09/16/18 Range/Units 06:40 01:45 01:45 RBC 3.16 L (4.00-5.20) m/cumm Hgb 9.5 L D (12.0-15.5) g/dL Hct 28.4 L D (36.0-46.0) % RDW 15.4 H (11.7-14.6) % Absolute Neutrophils (1.2-6.7) k/cumm Absolute Lymphocytes (1.2-3.4) k/cumm D-Dimer 777 H (<500) ng/mlFEU Chloride (98-107) mmol/L Creatinine (0.55-1.02) mg/dL Lactate (0.6-1.4) mmol/l Calcium (8.5-10.1) mg/dL Crossmatch See Detail 09/16/18 09/16/18 09/16/18 Range/Units 07:50 07:50 10:58 RBC 3.19 L (4.00-5.20) m/cumm Hgb 9.4 L (12.0-15.5) g/dL Hct 28.9 L (36.0-46.0) % RDW 15.9 H (11.7-14.6) % Absolute Neutrophils (1.2-6.7) k/cumm Absolute Lymphocytes 0.54 L (1.2-3.4) k/cumm D-Dimer (<500) ng/mlFEU Chloride 109 H (98-107) mmol/L Creatinine 0.53 L (0.55-1.02) mg/dL Lactate 0.5 L (0.6-1.4) mmol/l Calcium 7.7 L (8.5-10.1) mg/dL Crossmatch 04/11/19 Range/Units 16:15 RBC 3.71 L (4.00-5.20) m/cumm Hgb 11.2 L (12.0-15.5) g/dL Hct 33.3 L (36.0-46.0) % RDW 15.2 H (11.7-14.6) % Absolute Neutrophils 6.71 H (1.2-6.7) k/cumm Absolute Lymphocytes 0.63 L (1.2-3.4) k/cumm D-Dimer (<500) ng/mlFEU Chloride (98-107) mmol/L Creatinine (0.55-1.02) mg/dL Lactate (0.6-1.4) mmol/l Calcium (8.5-10.1) mg/dL Crossmatch Vital Signs Temperature 37.0 C 09/16/18 17:19 Temperature Source Tympanic 09/16/18 17:19 Pulse 92 H 09/16/18 17:00 Pulse Rhythm Regular 09/15/18 07:35 Pulse 94 H 09/16/18 17:00 Respiratory Rate 23 09/16/18 17:00 Respiratory Effort 09/16/18 17:19 Respiratory Depth Normal 09/16/18 17:19 Respiratory Pattern Normal 09/16/18 17:19 Blood Pressure 127/69 09/16/18 17:19 Blood Pressure Mean 88 09/16/18 17:19 Blood Pressure Position Supine 09/16/18 17:19 Pulse Oximetry 98 09/16/18 17:19 Respiratory End-tidal CO2 33 09/16/18 16:25 Oxygen Delivery Method Room Air 09/16/18 17:19 Oxygen Flow Rate 0 09/16/18 17:19 Pain Level 4 09/16/18 19:14 Comment 09/15/18 07:45 Intake & Output 09/15/18 09/16/18 09/16/18 23:59 11:59 23:59 Intake Total 2333.5 / 3852.833 836 / 2386 1550 / 2386 Output Total 860 / 875 425 / 1525 1100 / 1525 Balance 1473.5 / 2977.833 411 / 861 450 / 861 Weight 59.8 kg 59.8 kg Intake: IV 929.5 / 2248.833 626 / 2176 1550 / 2176 Oral 160 / 360 210 / 210 Blood Product 1244 / 1244 Pheresis Platelets Unit 304 / 304 [id number] Rbc Leuko Reduced Unit 0 / 0 [id number] Rbc Leuko Reduced Unit 300 / 300 [id number] Rbc Leuko Reduced Unit 300 / 300 [id number] Rbc Leuko Reduced Unit 340 / 340 [id number] Other 0 / 0 Pheresis Platelets Unit 0 / 0 [id number] Output: Urine 860 / 875 425 / 925 500 / 925 Estimated Blood Loss 600 / 600 Other: Urine Color Straw Straw Yellow Urine Appearance Cloudy Sediment Cloudy Purulent Comment pt states that she has low abd pain due to the crockett balloons. PRN APAP was offered at this time and declined. Urinary output 56cc/hr over 4 hours. NOT EMPTIED IN PACU Stool Size Smear Stool Characteristics Soft Emesis Description None Laboratory Results WBC 7.85 k/cumm (4.4-10.8) D 09/16/18 16:15 RBC 3.71 m/cumm (4.00-5.20) L 09/16/18 16:15 Hgb 11.2 g/dL (12.0-15.5) L 09/16/18 16:15 Hct 33.3 % (36.0-46.0) L 09/16/18 16:15 MCV 89.8 fL (80-95) 09/16/18 16:15 MCH 30.2 pg (27.0-33.0) 09/16/18 16:15 MCHC 33.6 g/dL (32.0-36.0) 09/16/18 16:15 RDW 15.2 % (11.7-14.6) H 09/16/18 16:15 Plt Count 170 x1000/uL (130-400) 09/16/18 16:15 MPV 10.7 fL (8.0-11.0) 09/16/18 16:15 Immature Gran % 0.3 09/16/18 16:15 Neutrophils % 85.5 09/16/18 16:15 Lymphocytes % 8.0 09/16/18 16:15 Monocytes % 4.1 09/16/18 16:15 Eosinophils % 1.8 09/16/18 16:15 Basophils % 0.3 09/16/18 16:15 Absolute Neutrophils 6.71 k/cumm (1.2-6.7) H 09/16/18 16:15 Absolute Lymphocytes 0.63 k/cumm (1.2-3.4) L 09/16/18 16:15 Absolute Monocytes 0.32 k/cumm (0.11-0.7) 09/16/18 16:15 Absolute Eosinophils 0.14 k/cumm (0.0-0.7) 09/16/18 16:15 Absolute Basophils 0.02 k/cumm (0.0-0.2) 09/16/18 16:15 Differential Comment Rbc morph reviewed 09/14/18 13:50 RBC Morphology See below 09/14/18 13:50 Polychromasia Present 09/14/18 13:50 Hypochromasia 1+ 09/14/18 13:50 Anisocytosis 1+ 09/14/18 13:50 Microcytosis 1+ 09/14/18 13:50 Macrocytosis 1+ 09/14/18 13:50 Retic Count 6.1 % (0.5-2.4) H 09/15/18 06:40 PT 10.6 sec (9.3-11.0) 09/16/18 01:45 INR 1.1 (0.9-1.1) 09/16/18 01:45 APTT 23.7 sec (21.0-31.4) 09/16/18 01:45 D-Dimer 777 ng/mlFEU (<500) H 09/16/18 01:45 Sodium 143 mmol/L (136-145) 09/16/18 07:50 Potassium 3.6 mmol/L (3.5-5.1) 09/16/18 07:50 Chloride 109 mmol/L (98-107) H 09/16/18 07:50 Carbon Dioxide 26.5 mmol/L (21.0-32.0) 09/16/18 07:50 Anion Gap 7.5 mmol/L (3-11) 09/16/18 07:50 BUN 9 mg/dL (7-18) 09/16/18 07:50 Creatinine 0.53 mg/dL (0.55-1.02) L 09/16/18 07:50 Estimated GFR/1.73 m2 >= 60.00 (mL/min/1.73m2) 09/16/18 07:50 Glucose 79 mg/dL (70-100) 09/16/18 07:50 Lactate 0.5 mmol/l (0.6-1.4) L 09/16/18 10:58 Calcium 7.7 mg/dL (8.5-10.1) L 09/16/18 07:50 Magnesium 1.9 mg/dL (1.8-2.4) 09/16/18 07:50 Iron 35 ug/dL (50-175) L 09/15/18 06:40 TIBC 187 ug/dL (250-450) L 09/15/18 06:40 Ferritin 103 ng/mL (8-388) 09/15/18 06:40 Total Bilirubin 0.1 mg/dL (0.2-1.0) L 09/14/18 13:50 AST 14 U/L (15-37) L 09/14/18 13:50 ALT 24 U/L (12-78) 09/14/18 13:50 Alkaline Phosphatase 118 U/L (46-116) H 09/14/18 13:50 Total Protein 7.6 g/dL (6.4-8.2) 09/14/18 13:50 Albumin 2.9 g/dL (3.4-5.0) L 09/14/18 13:50 Vitamin B12 520 pg/mL (193-986) 09/15/18 06:40 Folate > 20.0 ng/mL (8.6-20.0) H 09/15/18 06:40 TSH 4.14 uIU/mL (0.358-3.74) H 09/15/18 06:40 Urine Color Yellow (Yellow) 09/15/18 08:20 Urine Clarity Cloudy 09/15/18 08:20 Urine pH 6.0 (5-8) 09/15/18 08:20 Ur Specific [place] >= 1.030 (1.005-1.025) H 09/15/18 08:20 Urine Protein >=300 mg/dL (Negative) H 09/15/18 08:20 Urine Ketones Negative mg/dL (Negative) 09/15/18 08:20 Urine Blood Moderate (Negative) H 09/15/18 08:20 Urine Nitrite Positive (Negative) H 09/15/18 08:20 Urine Bilirubin Negative (Negative) 09/15/18 08:20 Urine Urobilinogen 0.2 EU/dL (Up TO 0.2) 09/15/18 08:20 Ur Leukocyte Esterase Small (Negative) H 09/15/18 08:20 Urine RBC Not Applicable 09/15/18 08:20 Urine WBC >50 HPF (0-5) 09/15/18 08:20 Ur Epithelial Cells Not Applicable 09/15/18 08:20 Urine Crystals Not Applicable 09/15/18 08:20 Urine Bacteria Not Applicable 09/15/18 08:20 Urine Mucus Not Applicable 09/15/18 08:20 Ur Culture Indicated? Yes 09/15/18 08:20 Urine Glucose Negative mg/dL (Negative) 09/15/18 08:20 Urine HCG, Qual Negative 09/15/18 08:20 Patient ABO/Rh O Positive 09/15/18 06:40 Antibody Screen Negative 09/15/18 06:40 Crossmatch See Detail 09/15/18 06:40 US venous BLE's: Slightly limited exam. No evidence for DVT.
[2018-09-16] MEDS: clonazePAM 1 MG TAB PO (20:22)
[2018-09-17] VITALS (40 sets, daily range): BP systolic 96–165; BP diastolic 56–86; PULSE 97–118; RESP 11–28; TEMP 36.6–38.2; O2SAT 91–99
[2018-09-17] MEDS: Normal Saline 1,000 ML 150 ML IV ×4 (00:27→22:40)
[2018-09-17] MEDS: Normal Saline Flush 10 ML SYR IVP ×3 (05:58→18:10)
[2018-09-17 06:59] LABS: Abs Immature Grans 0.01 k/cumm (0.0-0.09); Absolute Basophil Count 0.01 k/cumm (0.0-0.2); Absolute Eosinophil Count 0.06 k/cumm (0.0-0.7); Absolute Lymphocyte Count 0.65 k/cumm (1.2-3.4); Absolute Monocyte Count 0.47 k/cumm (0.11-0.7); Absolute Neutrophil Count 4.84 k/cumm (1.2-6.7); Basophils % 0.2; HCT 31.9 % (36.0-46.0); HGB 10.5 g/dL (12.0-15.5); Immature Grans % 0.2; Lymphocytes % 10.8; Mean Corp. HGB Concentration 32.9 g/dL (32.0-36.0); Mean Corpuscular Hemoglobin 29.9 pg (27.0-33.0); Mean Corpuscular Volume 90.9 fL (80-95); Mean Platelet Volume 10.8 fL (8.0-11.0); Monocytes % 7.8; Platelet Count 190 x1000/uL (130-400); RBC 3.51 m/cumm (4.00-5.20); RBC Distribution Width 15.7 % (11.7-14.6); White Blood Cell Count 6.04 k/cumm (4.4-10.8)
[2018-09-17 07:08] LABS: BUN 6 mg/dL (7-18); Magnesium 1.7 mg/dL (1.8-2.4); Potassium 3.3 mmol/L (3.5-5.1)
[2018-09-17 08:28] LABS: Anion Gap 11.3 mmol/L (3-11); CO2 20.7 mmol/L (21.0-32.0); CREATININE 0.45 mg/dL (0.55-1.02); Calcium 7.2 mg/dL (8.5-10.1); Chloride 111 mmol/L (98-107); Glucose 87 mg/dL (70-100); Sodium 143 mmol/L (136-145)
[2018-09-17] MEDS: Polyethylene Glycol 3350 17 GM PACKET PO (09:01)
[2018-09-17] MEDS: Pregabalin 25 MG CAP 75 MG PO ×2 (09:02→20:47)
[2018-09-17] MEDS: Vitamins B Comp w/C TAB 1 TAB PO (09:02)
[2018-09-17] MEDS: Milk of Magnesia 30 ML CUP PO (09:02)
[2018-09-17] MEDS: Baclofen 10 MG TAB 30 MG PO ×3 (09:04→20:47)
[2018-09-17] MEDS: Escitalopram 20 MG TAB 10 MG PO (09:10)
[2018-09-17] MEDS: Cyanocobalamin 500 MCG TAB 1000 MCG PO (09:10)
[2018-09-17] MEDS: Acetaminophen 325 MG TAB 650 MG PO (09:10)
--- NOTE | 2018-09-17 09:39 | NUR.NOTE ---
RECEIVED VERBAL ORDER FROM DR. GARDUNO THIS MORNING TO DISCONTINUE ARTERIAL LINE. ARTERIAL LINE PULLED BASED ON VERBAL ORDER. Nursing Note:
[2018-09-17] MEDS: MAGNESIUM SULFATE 2 GM/50 ML BAG IVPB (10:54)
[2018-09-17] MEDS: POTASSIUM CHLORIDE 20 MEQ/100 ML BAG 50 MEQ IVPB ×2 (10:54→13:05)
--- NOTE | 2018-09-17 12:46 | PDOC.CMPRO ---
- If Service Date Differs Date of service: 09/17/18 Time of Service: 12:46 Care Management Progress Note S/O: Ethel remains in the ICU at this time, she had a hysterectomy yesterday with Dr. Berry. CM spoke with Dr. Berry today, and Ethel will most likely be ready for DC on Thursday. Ethel will require w/c van for DC. CM contacted [facility], to request w/c van for Thursday if Ethel is medically ready, as [facility] will need to bring her w/c over for transport. [facility] to alert CM of timing of van availability. A: 37 y/o female admitted 09/14/18 for blood loss anemia. P: Once medically cleared Ethel will return to [facility] once medically cleared. Ethel will transport via w/c van when ready.
--- NOTE | 2018-09-17 12:50 | CMPROGNOTE_ITS ---
- If Service Date Differs Date of service: 09/17/18 Time of Service: 12:46 Care Management Progress Note S/O: Ethel remains in the ICU at this time, she had a hysterectomy yesterday with Dr. Berry. CM spoke with Dr. Berry today, and Ethel will most likely be ready for DC on Thursday. Ethel will require w/c van for DC. CM contacted [facility], to request w/c van for Thursday if Ethel is medically ready, as [facility] will need to bring her w/c over for transport. [facility] to alert CM of timing of van availability. A: 37 y/o female admitted 09/14/18 for blood loss anemia. P: Once medically cleared Ethel will return to [facility] once medically cleared. Ethel will transport via w/c van when ready.
[2018-09-17 14:05] LABS: ALT 13 U/L (12-78); AST 14 U/L (15-37); Albumin 2.1 g/dL (3.4-5.0); Alkaline Phosphatase 70 U/L (46-116); Bilirubin, Direct 0.33 mg/dL (0.00-0.20); Bilirubin, Total 0.7 mg/dL (0.2-1.0); Total Protein 5.4 g/dL (6.4-8.2)
--- NOTE | 2018-09-17 14:55 | CHAPLAIN ---
Ethel told me about her surgery, saying she had some pain today especially when she coughed. She is concerned about taking too many pain killers. Her aunt and daughters were here on Thursday and clearly she was happy about that. She had a chance to speak with her younger daughter who is also a [employer] about the decision to accept blood products. Ethel struggled with this decision but in the ended decided she needed to in order to survive and attend her younger daughter's graduation in November, as she had promised she would. Ethel said her daughter told her she was glad Ethel had accepted the blood products.
--- NOTE | 2018-09-17 17:41 | W.PM.PROGNOT ---
Date of Service Date of service: 09/17/18 Time of Service: 17:41 Assessment and Plan (1) UTI (urinary tract infection): Current visit: No Status: Acute Preliminary urine culture shows gram-negative rods. Sensitivities pending. Patient has remained on ceftriaxone for 72 hours. Plan is to discontinue the ceftriaxone if urine cultures returned as sensitive to the agent. (2) Poor intravenous access: Current visit: No Status: Acute Central line placed 09/15/2018 for IV access. I am reluctant to remove the central line until patient is able to tolerate sufficient amount of p.o.'s and oral medications. I anticipate removing the central line on 09/19/2018 (3) DVT prophylaxis: Current visit: No Status: Acute SCDs are currently in place. The lower extremity Doppler performed yesterday was negative for evidence of a DVT. I will discussed with hospitalist whether patient can begin daily aspirin or should restart Eliquis. (4) Abnormal uterine bleeding: Current visit: No Status: Acute H&H has stabilized after the hysterectomy. No for further transfusion should be required. (5) Discharge planning issues: Current visit: No Status: Acute I spoke with Ms. Jarrett today regarding discharge plans. I feel the patient will be able to be discharged back to her [facility] facility on 09/20/2018. (6) Postoperative pain: Current visit: Yes Status: Acute Patient is not very comfortable with her current medication regime. She is reluctant to use oxycodone since it has been ineffective in the past. I have changed her narcotic regime to Dilaudid PO andIV for breakthrough pain n.p.o. Will begin a course of Toradol for 24 hours. (7) Blood loss anemia: Current visit: No Status: Acute Stable. Will obtain one more set of labs tomorrow and discontinue daily labs. Subjective Patient reports: still having pain (Incisional discomfort worse when lower extremities moved), no flatus, no bowel movement and nausea (Unclear if related to morphine dose) Interval history since last seen: Postop day 1 after a total abdominal hysterectomy with bilateral salpingectomy for abnormal uterine bleeding with resulting anemia. EBL during surgery 600 cc. She received 1 unit of packed red blood cells intra-operatively. No further blood products. Findings at the time of surgery: Small uterus with organized clots in the endometrium,normal-appearing ovaries and fallopian tubes. Postop course: oxygen saturation normal on room air. Patient has been reluctant to take oral narcotics stating that oxycodone did not work for her in the past. Plan is to switch her from IV morphine which is making her nauseated to IV and oral Dilaudid and 24 hours of IV Toradol for pain. H/H stable. UO ~ 30cc/hr. [place] remains in place. Clear jed urine. Appetite minimal. Exam Const General: no acute distress Nutritional Appearance: average body habitus Orientation: alert, awake and oriented x3 Limitations: language barrier (Patient adamant secondary to her prior oral surgery) and physical limitations Chest Chest: normal inspection of the chest (Central venous line port site clean dry and intact) Resp Effort & Inspection: normal respiratory effort Auscultation: clear to auscultation bilaterally Cardio Palpation: normal PMI Rate: regular rate Heart Sounds: S1 normal and S2 normal GI Inspection: incision (Well approximated skin glue in place no evidence of ecchymosis) Palpation: soft (No guarding rebound or masses) Abdomen image: 1. Pfannenstiel skin incision. No ecchymosis. Skin glue covering the incision General: deferred (Bimanual exam deferred minimal vaginal bleeding since surgery) Skin General skin exam: no rashes or lesions noted Extrem General: normal capillary refill (Capillary refill brisk lower extremities are pale) Other: Patient's right leg contracture supported by pillows while at rest and during changes in position Psych Mood: congruent mood Affect: normal affect Attitude: cooperative Thought Process: normal Objective Objective Clinical Data: Abnormal lab results 09/15/18 09/15/18 09/17/18 Range/Units 06:40 06:40 06:30 RBC (4.00-5.20) m/cumm Hgb (12.0-15.5) g/dL Hct (36.0-46.0) % RDW (11.7-14.6) % Absolute Lymphocytes (1.2-3.4) k/cumm Haptoglobin 226 H (32-197) mg/dL Potassium 3.3 L (3.5-5.1) mmol/L Chloride 111 H (98-107) mmol/L Carbon Dioxide 20.7 L (21.0-32.0) mmol/L Anion Gap 11.3 H (3-11) mmol/L BUN 6 L (7-18) mg/dL Creatinine 0.45 L (0.55-1.02) mg/dL Calcium 7.2 L (8.5-10.1) mg/dL Magnesium 1.7 L (1.8-2.4) mg/dL Conjugated Bilirubin (0.00-0.20) mg/dL AST (15-37) U/L Total Protein (6.4-8.2) g/dL Albumin (3.4-5.0) g/dL Crossmatch See Detail 09/17/18 09/17/18 Range/Units 06:30 07:45 RBC 3.51 L (4.00-5.20) m/cumm Hgb 10.5 L (12.0-15.5) g/dL Hct 31.9 L (36.0-46.0) % RDW 15.7 H (11.7-14.6) % Absolute Lymphocytes 0.65 L (1.2-3.4) k/cumm Haptoglobin (32-197) mg/dL Potassium (3.5-5.1) mmol/L Chloride (98-107) mmol/L Carbon Dioxide (21.0-32.0) mmol/L Anion Gap (3-11) mmol/L BUN (7-18) mg/dL Creatinine (0.55-1.02) mg/dL Calcium (8.5-10.1) mg/dL Magnesium (1.8-2.4) mg/dL Conjugated Bilirubin 0.33 H (0.00-0.20) mg/dL AST 14 L (15-37) U/L Total Protein 5.4 L (6.4-8.2) g/dL Albumin 2.1 L (3.4-5.0) g/dL Crossmatch Vital Signs Temperature 98.1 F 09/17/18 12:05 Temperature Source Temporal Artery Scan 09/17/18 12:05 Pulse 108 H 09/17/18 16:00 Pulse Rhythm Regular 09/15/18 07:35 Pulse 109 H 09/17/18 16:01 Respiratory Rate 22 09/17/18 16:01 Respiratory Effort 09/17/18 12:05 Respiratory Depth Normal 09/17/18 12:05 Respiratory Pattern Normal 09/17/18 12:05 Blood Pressure 114/70 09/17/18 16:00 Blood Pressure Mean 79 09/17/18 16:00 Blood Pressure Position Supine 09/17/18 08:12 Pulse Oximetry 96 09/17/18 16:01 Respiratory End-tidal CO2 33 09/16/18 16:25 Oxygen Delivery Method Room Air 09/17/18 12:05 Oxygen Flow Rate 0 09/17/18 12:05 Pain Level 2 09/17/18 12:05 Comment 09/15/18 07:45 Intake & Output 09/16/18 09/17/18 09/17/18 23:59 11:59 23:59 Intake Total 2840 / 3676 4087.5 / 4797.5 710 / 4797.5 Output Total 1375 / 1800 750 / 975 225 / 975 Balance 1465 / 1876 3337.5 / 3822.5 485 / 3822.5 Weight 131 lb 13.383 oz 131 lb 13.383 oz Intake: IV 2600 / 3226 3647.5 / 4147.5 500 / 4147.5 Oral 240 / 450 440 / 650 210 / 650 Output: Urine 775 / 1200 750 / 975 225 / 975 Estimated Blood Loss 600 / 600 Other: Urine Color Yellow Yellow Light Jed Urine Appearance Cloudy Cloudy Clear Urine Odor Normal Comment NOT EMPTIED IN PACU MAYBERRY CATHETER IN PLACE. MAYBERRY CATHETER IN PLACE. Emesis Description None Voiding Methods Diaper Diaper Indwelling Catheter Indwelling Catheter Laboratory Results WBC 6.04 k/cumm (4.4-10.8) 09/17/18 06:30 RBC 3.51 m/cumm (4.00-5.20) L 09/17/18 06:30 Hgb 10.5 g/dL (12.0-15.5) L 09/17/18 06:30 Hct 31.9 % (36.0-46.0) L 09/17/18 06:30 MCV 90.9 fL (80-95) 09/17/18 06:30 MCH 29.9 pg (27.0-33.0) 09/17/18 06:30 MCHC 32.9 g/dL (32.0-36.0) 09/17/18 06:30 RDW 15.7 % (11.7-14.6) H 09/17/18 06:30 Plt Count 190 x1000/uL (130-400) 09/17/18 06:30 MPV 10.8 fL (8.0-11.0) 09/17/18 06:30 Immature Gran % 0.2 09/17/18 06:30 Neutrophils % 80.0 09/17/18 06:30 Lymphocytes % 10.8 09/17/18 06:30 Monocytes % 7.8 09/17/18 06:30 Eosinophils % 1.0 09/17/18 06:30 Basophils % 0.2 09/17/18 06:30 Absolute Neutrophils 4.84 k/cumm (1.2-6.7) 09/17/18 06:30 Absolute Lymphocytes 0.65 k/cumm (1.2-3.4) L 09/17/18 06:30 Absolute Monocytes 0.47 k/cumm (0.11-0.7) 09/17/18 06:30 Absolute Eosinophils 0.06 k/cumm (0.0-0.7) 09/17/18 06:30 Absolute Basophils 0.01 k/cumm (0.0-0.2) 09/17/18 06:30 Differential Comment Rbc morph reviewed 09/14/18 13:50 RBC Morphology See below 09/14/18 13:50 Polychromasia Present 09/14/18 13:50 Hypochromasia 1+ 09/14/18 13:50 Anisocytosis 1+ 09/14/18 13:50 Microcytosis 1+ 09/14/18 13:50 Macrocytosis 1+ 09/14/18 13:50 Retic Count 6.1 % (0.5-2.4) H 09/15/18 06:40 Haptoglobin 226 mg/dL (32-197) H 09/15/18 06:40 PT 10.6 sec (9.3-11.0) 09/16/18 01:45 INR 1.1 (0.9-1.1) 09/16/18 01:45 APTT 23.7 sec (21.0-31.4) 09/16/18 01:45 Fibrinogen 372 mg/dL (171-384) 09/16/18 07:45 D-Dimer 777 ng/mlFEU (<500) H 09/16/18 01:45 Sodium 143 mmol/L (136-145) 09/17/18 06:30 Potassium 3.3 mmol/L (3.5-5.1) L 09/17/18 06:30 Chloride 111 mmol/L (98-107) H 09/17/18 06:30 Carbon Dioxide 20.7 mmol/L (21.0-32.0) L 09/17/18 06:30 Anion Gap 11.3 mmol/L (3-11) H 09/17/18 06:30 BUN 6 mg/dL (7-18) L 09/17/18 06:30 Creatinine 0.45 mg/dL (0.55-1.02) L 09/17/18 06:30 Estimated GFR/1.73 m2 >= 60.00 (mL/min/1.73m2) 09/17/18 06:30 Glucose 87 mg/dL (70-100) 09/17/18 06:30 Lactate 0.5 mmol/l (0.6-1.4) L 09/16/18 10:58 Calcium 7.2 mg/dL (8.5-10.1) L 09/17/18 06:30 Magnesium 1.7 mg/dL (1.8-2.4) L 09/17/18 06:30 Iron 35 ug/dL (50-175) L 09/15/18 06:40 TIBC 187 ug/dL (250-450) L 09/15/18 06:40 Ferritin 103 ng/mL (8-388) 09/15/18 06:40 Total Bilirubin 0.7 mg/dL (0.2-1.0) 09/17/18 07:45 Conjugated Bilirubin 0.33 mg/dL (0.00-0.20) H 09/17/18 07:45 AST 14 U/L (15-37) L 09/17/18 07:45 ALT 13 U/L (12-78) 09/17/18 07:45 Alkaline Phosphatase 70 U/L (46-116) 09/17/18 07:45 Total Protein 5.4 g/dL (6.4-8.2) L 09/17/18 07:45 Albumin 2.1 g/dL (3.4-5.0) L 09/17/18 07:45 Vitamin B12 520 pg/mL (193-986) 09/15/18 06:40 Folate > 20.0 ng/mL (8.6-20.0) H 09/15/18 06:40 TSH 4.14 uIU/mL (0.358-3.74) H 09/15/18 06:40 Urine Color Yellow (Yellow) 09/15/18 08:20 Urine Clarity Cloudy 09/15/18 08:20 Urine pH 6.0 (5-8) 09/15/18 08:20 Ur Specific [place] >= 1.030 (1.005-1.025) H 09/15/18 08:20 Urine Protein >=300 mg/dL (Negative) H 09/15/18 08:20 Urine Ketones Negative mg/dL (Negative) 09/15/18 08:20 Urine Blood Moderate (Negative) H 09/15/18 08:20 Urine Nitrite Positive (Negative) H 09/15/18 08:20 Urine Bilirubin Negative (Negative) 09/15/18 08:20 Urine Urobilinogen 0.2 EU/dL (Up TO 0.2) 09/15/18 08:20 Ur Leukocyte Esterase Small (Negative) H 09/15/18 08:20 Urine RBC Not Applicable 09/15/18 08:20 Urine WBC >50 HPF (0-5) 09/15/18 08:20 Ur Epithelial Cells Not Applicable 09/15/18 08:20 Urine Crystals Not Applicable 09/15/18 08:20 Urine Bacteria Not Applicable 09/15/18 08:20 Urine Mucus Not Applicable 09/15/18 08:20 Ur Culture Indicated? Yes 09/15/18 08:20 Urine Glucose Negative mg/dL (Negative) 09/15/18 08:20 Urine HCG, Qual Negative 09/15/18 08:20 Patient ABO/Rh O Positive 09/15/18 06:40 Antibody Screen Negative 09/15/18 06:40 Crossmatch See Detail 09/15/18 06:40
[2018-09-17] MEDS: Ketorolac 15 MG/ML VIAL IVP ×2 (18:08→23:22)
[2018-09-17] MEDS: HYDROmorphone 2 MG/ML VIAL IVP (18:09)
[2018-09-17] MEDS: cefTRIAXone 1 GM/50 ML BAG IVPB (18:10)
[2018-09-17] MEDS: Bisacodyl 10 MG SUPP PR (18:48)
--- NOTE | 2018-09-17 18:51 | W.PM.PROGNOT ---
Date of Service Date of service: 09/17/18 Time of Service: 08:05 Assessment and Plan (1) Blood loss anemia: Current visit: No Status: Acute improved post transfusion. s/p total abdominal hysterectomy 09/16/18, no complications. I would not give her any additional iron since she got transfused and is a risk of iron overload due to her hemochromatosis. (2) Abnormal uterine bleeding: Current visit: No Status: Acute S/p total abdominal hysterectomy . Defer to primary team. (3) UTI (urinary tract infection): Current visit: No Status: Acute GNR UTI present on admission. Still no speciation available. Previously grew E. Coli and tolerated rocephin - await C&S. Continue rocephin (Day 3). (4) Neurogenic bladder: Current visit: No Status: Acute s/p crockett - evidently has a UTI. see above (5) Hemochromatosis: Current visit: No Status: Chronic As above (6) Type 2 diabetes mellitus with hyperglycemia: Current visit: No Status: Chronic Her A1C is not a reliable indicator of sugars in setting of acute anemia. 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 No evidence of DVT per venous doppler. I would consider not resuming the anticoagulation at all. All of the hem/onc notes I am seeing in [facility] network were either of no show appointments or cancellations. The patient did get treated by Rad-onc. I feel she would benefit from a consultation with Hem/onc as outpatient. (10) Discharge planning issues: Current visit: No Status: Acute Full code (11) DVT prophylaxis: Current visit: No Status: Acute Eliquis on hold. Ok to use TEDs/SCD's Subjective Interval history since last seen: Ethel states her pain is controlled. Denies dizziness, chest pain, shortness of breath, cough, n/v. Exam Narrative Exam Narrative: General: frail middle aged female, A&Ox3 HEENT: EOMI, dry MMM, R neck incision well healed. No goiter. Heart: RRR, no m/r/g, mildly tachycardic Lungs: CTAB GI: abdomen is soft, nontender, nondistended; suprapubic incision well approximated, clean, dry, intact Extremities: no e/c/c BLE's; 1+ pedal pulses B; contracted Objective Objective Clinical Data: Abnormal lab results 09/15/18 09/15/18 09/17/18 Range/Units 06:40 06:40 06:30 RBC (4.00-5.20) m/cumm Hgb (12.0-15.5) g/dL Hct (36.0-46.0) % RDW (11.7-14.6) % Absolute Lymphocytes (1.2-3.4) k/cumm Haptoglobin 226 H (32-197) mg/dL Potassium 3.3 L (3.5-5.1) mmol/L Chloride 111 H (98-107) mmol/L Carbon Dioxide 20.7 L (21.0-32.0) mmol/L Anion Gap 11.3 H (3-11) mmol/L BUN 6 L (7-18) mg/dL Creatinine 0.45 L (0.55-1.02) mg/dL Calcium 7.2 L (8.5-10.1) mg/dL Magnesium 1.7 L (1.8-2.4) mg/dL Conjugated Bilirubin (0.00-0.20) mg/dL AST (15-37) U/L Total Protein (6.4-8.2) g/dL Albumin (3.4-5.0) g/dL Crossmatch See Detail 09/17/18 09/17/18 Range/Units 06:30 07:45 RBC 3.51 L (4.00-5.20) m/cumm Hgb 10.5 L (12.0-15.5) g/dL Hct 31.9 L (36.0-46.0) % RDW 15.7 H (11.7-14.6) % Absolute Lymphocytes 0.65 L (1.2-3.4) k/cumm Haptoglobin (32-197) mg/dL Potassium (3.5-5.1) mmol/L Chloride (98-107) mmol/L Carbon Dioxide (21.0-32.0) mmol/L Anion Gap (3-11) mmol/L BUN (7-18) mg/dL Creatinine (0.55-1.02) mg/dL Calcium (8.5-10.1) mg/dL Magnesium (1.8-2.4) mg/dL Conjugated Bilirubin 0.33 H (0.00-0.20) mg/dL AST 14 L (15-37) U/L Total Protein 5.4 L (6.4-8.2) g/dL Albumin 2.1 L (3.4-5.0) g/dL Crossmatch Vital Signs Temperature 37.5 C 09/17/18 17:00 Temperature Source Tympanic 09/17/18 17:00 Pulse 109 H 09/17/18 17:00 Pulse Rhythm Regular 09/15/18 07:35 Pulse 109 H 09/17/18 16:01 Respiratory Rate 22 09/17/18 17:00 Respiratory Effort 09/17/18 17:00 Respiratory Depth Normal 09/17/18 17:00 Respiratory Pattern Normal 09/17/18 17:00 Blood Pressure 122/79 09/17/18 17:00 Blood Pressure Mean 93 09/17/18 17:00 Blood Pressure Position Supine 09/17/18 17:00 Pulse Oximetry 98 09/17/18 17:00 Respiratory End-tidal CO2 33 09/16/18 16:25 Oxygen Delivery Method Room Air 09/17/18 17:00 Oxygen Flow Rate 0 09/17/18 17:00 Pain Level 5 09/17/18 18:09 Comment 09/15/18 07:45 Intake & Output 09/16/18 09/17/18 09/17/18 23:59 11:59 23:59 Intake Total 2840 / 3676 4087.5 / 4797.5 710 / 4797.5 Output Total 1375 / 1800 750 / 975 225 / 975 Balance 1465 / 1876 3337.5 / 3822.5 485 / 3822.5 Weight 59.8 kg 59.8 kg Intake: IV 2600 / 3226 3647.5 / 4147.5 500 / 4147.5 Oral 240 / 450 440 / 650 210 / 650 Output: Urine 775 / 1200 750 / 975 225 / 975 Estimated Blood Loss 600 / 600 Other: Urine Color Yellow Yellow Light [place] Urine Appearance Cloudy Cloudy Clear Urine Odor Normal Comment NOT EMPTIED IN PACU CROCKETT CATHETER IN PLACE. crockett cath in place and draining straw colored urine. Emesis Description None Voiding Methods Diaper Diaper Indwelling Catheter Indwelling Catheter Laboratory Results WBC 6.04 k/cumm (4.4-10.8) 09/17/18 06:30 RBC 3.51 m/cumm (4.00-5.20) L 09/17/18 06:30 Hgb 10.5 g/dL (12.0-15.5) L 09/17/18 06:30 Hct 31.9 % (36.0-46.0) L 09/17/18 06:30 MCV 90.9 fL (80-95) 09/17/18 06:30 MCH 29.9 pg (27.0-33.0) 09/17/18 06:30 MCHC 32.9 g/dL (32.0-36.0) 09/17/18 06:30 RDW 15.7 % (11.7-14.6) H 09/17/18 06:30 Plt Count 190 x1000/uL (130-400) 09/17/18 06:30 MPV 10.8 fL (8.0-11.0) 09/17/18 06:30 Immature Gran % 0.2 09/17/18 06:30 Neutrophils % 80.0 09/17/18 06:30 Lymphocytes % 10.8 09/17/18 06:30 Monocytes % 7.8 09/17/18 06:30 Eosinophils % 1.0 09/17/18 06:30 Basophils % 0.2 09/17/18 06:30 Absolute Neutrophils 4.84 k/cumm (1.2-6.7) 09/17/18 06:30 Absolute Lymphocytes 0.65 k/cumm (1.2-3.4) L 09/17/18 06:30 Absolute Monocytes 0.47 k/cumm (0.11-0.7) 09/17/18 06:30 Absolute Eosinophils 0.06 k/cumm (0.0-0.7) 09/17/18 06:30 Absolute Basophils 0.01 k/cumm (0.0-0.2) 09/17/18 06:30 Differential Comment Rbc morph reviewed 09/14/18 13:50 RBC Morphology See below 09/14/18 13:50 Polychromasia Present 09/14/18 13:50 Hypochromasia 1+ 09/14/18 13:50 Anisocytosis 1+ 09/14/18 13:50 Microcytosis 1+ 09/14/18 13:50 Macrocytosis 1+ 09/14/18 13:50 Retic Count 6.1 % (0.5-2.4) H 09/15/18 06:40 Haptoglobin 226 mg/dL (32-197) H 09/15/18 06:40 PT 10.6 sec (9.3-11.0) 09/16/18 01:45 INR 1.1 (0.9-1.1) 09/16/18 01:45 APTT 23.7 sec (21.0-31.4) 09/16/18 01:45 Fibrinogen 372 mg/dL (171-384) 09/16/18 07:45 D-Dimer 777 ng/mlFEU (<500) H 09/16/18 01:45 Sodium 143 mmol/L (136-145) 09/17/18 06:30 Potassium 3.3 mmol/L (3.5-5.1) L 09/17/18 06:30 Chloride 111 mmol/L (98-107) H 09/17/18 06:30 Carbon Dioxide 20.7 mmol/L (21.0-32.0) L 09/17/18 06:30 Anion Gap 11.3 mmol/L (3-11) H 09/17/18 06:30 BUN 6 mg/dL (7-18) L 09/17/18 06:30 Creatinine 0.45 mg/dL (0.55-1.02) L 09/17/18 06:30 Estimated GFR/1.73 m2 >= 60.00 (mL/min/1.73m2) 09/17/18 06:30 Glucose 87 mg/dL (70-100) 09/17/18 06:30 Lactate 0.5 mmol/l (0.6-1.4) L 09/16/18 10:58 Calcium 7.2 mg/dL (8.5-10.1) L 09/17/18 06:30 Magnesium 1.7 mg/dL (1.8-2.4) L 09/17/18 06:30 Iron 35 ug/dL (50-175) L 09/15/18 06:40 TIBC 187 ug/dL (250-450) L 09/15/18 06:40 Ferritin 103 ng/mL (8-388) 09/15/18 06:40 Total Bilirubin 0.7 mg/dL (0.2-1.0) 09/17/18 07:45 Conjugated Bilirubin 0.33 mg/dL (0.00-0.20) H 09/17/18 07:45 AST 14 U/L (15-37) L 09/17/18 07:45 ALT 13 U/L (12-78) 09/17/18 07:45 Alkaline Phosphatase 70 U/L (46-116) 09/17/18 07:45 Total Protein 5.4 g/dL (6.4-8.2) L 09/17/18 07:45 Albumin 2.1 g/dL (3.4-5.0) L 09/17/18 07:45 Vitamin B12 520 pg/mL (193-986) 09/15/18 06:40 Folate > 20.0 ng/mL (8.6-20.0) H 09/15/18 06:40 TSH 4.14 uIU/mL (0.358-3.74) H 09/15/18 06:40 Urine Color Yellow (Yellow) 09/15/18 08:20 Urine Clarity Cloudy 09/15/18 08:20 Urine pH 6.0 (5-8) 09/15/18 08:20 Ur Specific [place] >= 1.030 (1.005-1.025) H 09/15/18 08:20 Urine Protein >=300 mg/dL (Negative) H 09/15/18 08:20 Urine Ketones Negative mg/dL (Negative) 09/15/18 08:20 Urine Blood Moderate (Negative) H 09/15/18 08:20 Urine Nitrite Positive (Negative) H 09/15/18 08:20 Urine Bilirubin Negative (Negative) 09/15/18 08:20 Urine Urobilinogen 0.2 EU/dL (Up TO 0.2) 09/15/18 08:20 Ur Leukocyte Esterase Small (Negative) H 09/15/18 08:20 Urine RBC Not Applicable 09/15/18 08:20 Urine WBC >50 HPF (0-5) 09/15/18 08:20 Ur Epithelial Cells Not Applicable 09/15/18 08:20 Urine Crystals Not Applicable 09/15/18 08:20 Urine Bacteria Not Applicable 09/15/18 08:20 Urine Mucus Not Applicable 09/15/18 08:20 Ur Culture Indicated? Yes 09/15/18 08:20 Urine Glucose Negative mg/dL (Negative) 09/15/18 08:20 Urine HCG, Qual Negative 09/15/18 08:20 Patient ABO/Rh O Positive 09/15/18 06:40 Antibody Screen Negative 09/15/18 06:40 Crossmatch See Detail 09/15/18 06:40
[2018-09-17] MEDS: clonazePAM 1 MG TAB PO (20:47)
[2018-09-17] MEDS: HYDROmorphone 2 MG/ML VIAL 1 MG IVP (22:41)
[2018-09-18] VITALS (41 sets, daily range): BP systolic 84–126; BP diastolic 43–84; PULSE 90–115; RESP 9–31; TEMP 36.6–37.6; O2SAT 88–100
[2018-09-18] MEDS: Ketorolac 15 MG/ML VIAL IVP ×2 (05:08→11:58)
[2018-09-18] MEDS: HYDROmorphone 2 MG/ML VIAL 1 MG IVP ×3 (05:09→23:03)
[2018-09-18] MEDS: Normal Saline 1,000 ML 150 ML IV (05:09)
[2018-09-18 06:34] LABS: Abs Immature Grans 0.01 k/cumm (0.0-0.09); Absolute Basophil Count 0.01 k/cumm (0.0-0.2); Absolute Eosinophil Count 0.11 k/cumm (0.0-0.7); Absolute Lymphocyte Count 0.31 k/cumm (1.2-3.4); Absolute Monocyte Count 0.25 k/cumm (0.11-0.7); Absolute Neutrophil Count 3.61 k/cumm (1.2-6.7); Basophils % 0.2; Eosinophils % 2.6; HCT 27.9 % (36.0-46.0); Immature Grans % 0.2; Lymphocytes % 7.2; Mean Corp. HGB Concentration 32.3 g/dL (32.0-36.0); Mean Corpuscular Hemoglobin 30.1 pg (27.0-33.0); Mean Corpuscular Volume 93.3 fL (80-95); Mean Platelet Volume 10.6 fL (8.0-11.0); Monocytes % 5.8; Platelet Count 158 x1000/uL (130-400); RBC 2.99 m/cumm (4.00-5.20); RBC Distribution Width 16.1 % (11.7-14.6)
[2018-09-18 06:46] LABS: Anion Gap 7.5 mmol/L (3-11); BUN 6 mg/dL (7-18); CO2 23.5 mmol/L (21.0-32.0); CREATININE 0.33 mg/dL (0.55-1.02); Calcium 7.2 mg/dL (8.5-10.1); Chloride 111 mmol/L (98-107); Glucose 83 mg/dL (70-100); Magnesium 2.1 mg/dL (1.8-2.4); Potassium 3.8 mmol/L (3.5-5.1); Sodium 142 mmol/L (136-145)
[2018-09-18] MEDS: Escitalopram 20 MG TAB 10 MG PO (09:28)
[2018-09-18] MEDS: Pregabalin 25 MG CAP 75 MG PO ×2 (09:29→20:40)
[2018-09-18] MEDS: Polyethylene Glycol 3350 17 GM PACKET PO (09:30)
[2018-09-18] MEDS: Vitamins B Comp w/C TAB 1 TAB PO (09:30)
[2018-09-18] MEDS: Cyanocobalamin 500 MCG TAB 1000 MCG PO (09:30)
[2018-09-18] MEDS: Baclofen 10 MG TAB 30 MG PO ×3 (09:32→20:39)
--- NOTE | 2018-09-18 09:37 | PGE_ITS ---
Date of Service Date of service: 09/18/18 Time of Service: 09:34 Assessment and Plan (1) Postoperative pain: Current visit: Yes Status: Acute Oxycodone stopped. Dilaudid p.o. was accepted during the night by the patient. She did not require IV Dilaudid. Toradol IV was initiated yesterday. The plan is to continue the Toradol for a total of 4 doses and then change to oral ibuprofen. (2) UTI (urinary tract infection): Current visit: Yes Status: Acute Urine culture shows Klebsiella pneumonia. Sensitive to ceftriaxone. I will defer to the hospitalist service regarding stopping the ceftriaxone or beginning an oral agent. (3) Need for intravenous access: Current visit: No Status: Suspected Plan is to continue with the central line until the time of discharge. (4) Hypotension due to blood loss: Current visit: Yes Status: Acute Her blood pressure has decreased overnight as has her hemoglobin I will repeat a H&H this afternoon. I will decrease her IV rate and continue the Crockett catheter for the purpose of a and O's. (5) DVT prophylaxis: Current visit: No Status: Acute SCDs are in place. Negative lower extremity Doppler. Question is should she receive daily aspirin for prophylactic anticoagulation. (6) Discharge planning issues: Current visit: No Status: Acute The plan is to have the patient remain inpatient until Thursday assuming that she remains stable. I will have remained in ICU to follow her H&H and vital signs. (7) Blood loss anemia: Current visit: No Status: Acute We will continue to follow her H&H. Subjective Patient reports: pain is less, tolerating liquids well, bowel movement (This am.), nausea (improved.) and afebrile Interval history since last seen: Pain-oxycodone was not effective patient was switched to oral Dilaudid which appears to be effective. IV tramadol 50 mg x4 doses initiated. Vital signs-blood: MBP decreased from 72-53 this morning and pulse remains tachycardic. H&H is also lower from yesterday morning. I discussed her low oxygen saturation this morning with her nurse who reported that the oxygen saturation monitor was not accurately place. Her current oxygen saturation is 98%. Fluid status-patient taking small amounts of orals and running is eating a regular diet. Reports decreased appetite. Urine output approximately 40 cc an hour. 4 pound weight gain/ 24 hours. 9 pound weight gain/ since admission. Urine culture-Klebsiella pneumonia sensitive to ceftriaxone. She has received a total of 4 daily doses since admission. The plan is to discontinue her ceftriaxone antibiotic today. Exam Const General: cooperative and no acute distress Nutritional Appearance: average body habitus Orientation: alert, awake and oriented x3 Chest Chest: normal inspection of the chest (Central venous access site clean dry and intact covered with sterile dressi) Resp Effort & Inspection: normal respiratory effort and able to speak in complete sentences Auscultation: clear to auscultation bilaterally Cardio Palpation: normal PMI Rate: regular rate Heart Sounds: S1 normal and S2 normal GI Inspection: distended Palpation: soft (No guarding or rebound) Objective Objective Clinical Data: Abnormal lab results 09/15/18 09/15/18 09/15/18 Range/Units 06:40 06:40 08:20 WBC (4.4-10.8) k/cumm RBC (4.00-5.20) m/cumm Hgb (12.0-15.5) g/dL Hct (36.0-46.0) % RDW (11.7-14.6) % Absolute Lymphocytes (1.2-3.4) k/cumm Haptoglobin 226 H (32-197) mg/dL Chloride (98-107) mmol/L BUN (7-18) mg/dL Creatinine (0.55-1.02) mg/dL Calcium (8.5-10.1) mg/dL Conjugated Bilirubin (0.00-0.20) mg/dL AST (15-37) U/L Total Protein (6.4-8.2) g/dL Albumin (3.4-5.0) g/dL Ur Specific [place] >= 1.030 H (1.005-1.025) Urine Protein >=300 H (Negative) mg/dL Urine Blood Moderate H (Negative) Urine Nitrite Positive H (Negative) Ur Leukocyte Esterase Small H (Negative) Crossmatch See Detail 09/17/18 09/18/18 09/18/18 Range/Units 07:45 05:55 05:55 WBC 4.30 L (4.4-10.8) k/cumm RBC 2.99 L (4.00-5.20) m/cumm Hgb 9.0 L (12.0-15.5) g/dL Hct 27.9 L (36.0-46.0) % RDW 16.1 H (11.7-14.6) % Absolute Lymphocytes 0.31 L (1.2-3.4) k/cumm Haptoglobin (32-197) mg/dL Chloride 111 H (98-107) mmol/L BUN 6 L (7-18) mg/dL Creatinine 0.33 L (0.55-1.02) mg/dL Calcium 7.2 L (8.5-10.1) mg/dL Conjugated Bilirubin 0.33 H (0.00-0.20) mg/dL AST 14 L (15-37) U/L Total Protein 5.4 L (6.4-8.2) g/dL Albumin 2.1 L (3.4-5.0) g/dL Ur Specific [place] (1.005-1.025) Urine Protein (Negative) mg/dL Urine Blood (Negative) Urine Nitrite (Negative) Ur Leukocyte Esterase (Negative) Crossmatch Vital Signs Temperature 97.9 F 09/18/18 00:00 Temperature Source Tympanic 09/18/18 00:00 Pulse 99 H 09/18/18 06:00 Pulse Rhythm Regular 09/15/18 07:35 Pulse 102 H 09/18/18 06:01 Respiratory Rate 11 L 09/18/18 06:01 Respiratory Effort 09/18/18 04:46 Respiratory Depth Normal 09/18/18 04:46 Respiratory Pattern Normal 09/18/18 04:46 Blood Pressure 84/43 L 09/18/18 06:00 Blood Pressure Mean 53 09/18/18 06:00 Blood Pressure Position Supine 09/18/18 00:00 Pulse Oximetry 88 L 09/18/18 06:01 Respiratory End-tidal CO2 33 09/16/18 16:25 Oxygen Delivery Method Room Air 09/18/18 00:00 Oxygen Flow Rate 0 09/18/18 00:00 Pain Level 2 09/18/18 00:00 Comment 09/18/18 02:00 Intake & Output 09/17/18 09/17/18 09/18/18 11:59 23:59 11:59 Intake Total 4087.5 / 5977.5 1890 / 5977.5 972.5 / 972.5 Output Total 750 / 975 225 / 975 425 / 425 Balance 3337.5 / 5002.5 1665 / 5002.5 547.5 / 547.5 Weight 131 lb 13.383 oz 135 lb 9.349 oz Intake: IV 3647.5 / 5147.5 1500 / 5147.5 972.5 / 972.5 Oral 440 / 830 390 / 830 Output: Urine 750 / 975 225 / 975 425 / 425 Other: Urine Color Yellow Light Jed Dark Jed Urine Appearance Cloudy Clear Clear Urine Odor Normal Comment CROCKETT CATHETER IN PLACE. crockett cath in place and draining straw colored urine. crockett cath to gravity with dark jed urine Stool Characteristics Soft Voiding Methods Diaper Indwelling Catheter Laboratory Results WBC 4.30 k/cumm (4.4-10.8) L 09/18/18 05:55 RBC 2.99 m/cumm (4.00-5.20) L 09/18/18 05:55 Hgb 9.0 g/dL (12.0-15.5) L 09/18/18 05:55 Hct 27.9 % (36.0-46.0) L 09/18/18 05:55 MCV 93.3 fL (80-95) 09/18/18 05:55 MCH 30.1 pg (27.0-33.0) 09/18/18 05:55 MCHC 32.3 g/dL (32.0-36.0) 09/18/18 05:55 RDW 16.1 % (11.7-14.6) H 09/18/18 05:55 Plt Count 158 x1000/uL (130-400) 09/18/18 05:55 MPV 10.6 fL (8.0-11.0) 09/18/18 05:55 Immature Gran % 0.2 09/18/18 05:55 Neutrophils % 84.0 09/18/18 05:55 Lymphocytes % 7.2 09/18/18 05:55 Monocytes % 5.8 09/18/18 05:55 Eosinophils % 2.6 09/18/18 05:55 Basophils % 0.2 09/18/18 05:55 Absolute Neutrophils 3.61 k/cumm (1.2-6.7) 09/18/18 05:55 Absolute Lymphocytes 0.31 k/cumm (1.2-3.4) L 09/18/18 05:55 Absolute Monocytes 0.25 k/cumm (0.11-0.7) 09/18/18 05:55 Absolute Eosinophils 0.11 k/cumm (0.0-0.7) 09/18/18 05:55 Absolute Basophils 0.01 k/cumm (0.0-0.2) 09/18/18 05:55 Differential Comment Rbc morph reviewed 09/14/18 13:50 RBC Morphology See below 09/14/18 13:50 Polychromasia Present 09/14/18 13:50 Hypochromasia 1+ 09/14/18 13:50 Anisocytosis 1+ 09/14/18 13:50 Microcytosis 1+ 09/14/18 13:50 Macrocytosis 1+ 09/14/18 13:50 Retic Count 6.1 % (0.5-2.4) H 09/15/18 06:40 Haptoglobin 226 mg/dL (32-197) H 09/15/18 06:40 PT 10.6 sec (9.3-11.0) 09/16/18 01:45 INR 1.1 (0.9-1.1) 09/16/18 01:45 APTT 23.7 sec (21.0-31.4) 09/16/18 01:45 Fibrinogen 372 mg/dL (171-384) 09/16/18 07:45 D-Dimer 777 ng/mlFEU (<500) H 09/16/18 01:45 Sodium 142 mmol/L (136-145) 09/18/18 05:55 Potassium 3.8 mmol/L (3.5-5.1) 09/18/18 05:55 Chloride 111 mmol/L (98-107) H 09/18/18 05:55 Carbon Dioxide 23.5 mmol/L (21.0-32.0) 09/18/18 05:55 Anion Gap 7.5 mmol/L (3-11) 09/18/18 05:55 BUN 6 mg/dL (7-18) L 09/18/18 05:55 Creatinine 0.33 mg/dL (0.55-1.02) L 09/18/18 05:55 Estimated GFR/1.73 m2 >= 60.00 (mL/min/1.73m2) 09/18/18 05:55 Glucose 83 mg/dL (70-100) 09/18/18 05:55 Lactate 0.5 mmol/l (0.6-1.4) L 09/16/18 10:58 Calcium 7.2 mg/dL (8.5-10.1) L 09/18/18 05:55 Magnesium 2.1 mg/dL (1.8-2.4) 09/18/18 05:55 Iron 35 ug/dL (50-175) L 09/15/18 06:40 TIBC 187 ug/dL (250-450) L 09/15/18 06:40 Ferritin 103 ng/mL (8-388) 09/15/18 06:40 Total Bilirubin 0.7 mg/dL (0.2-1.0) 09/17/18 07:45 Conjugated Bilirubin 0.33 mg/dL (0.00-0.20) H 09/17/18 07:45 AST 14 U/L (15-37) L 09/17/18 07:45 ALT 13 U/L (12-78) 09/17/18 07:45 Alkaline Phosphatase 70 U/L (46-116) 09/17/18 07:45 Total Protein 5.4 g/dL (6.4-8.2) L 09/17/18 07:45 Albumin 2.1 g/dL (3.4-5.0) L 09/17/18 07:45 Vitamin B12 520 pg/mL (193-986) 09/15/18 06:40 Folate > 20.0 ng/mL (8.6-20.0) H 09/15/18 06:40 TSH 4.14 uIU/mL (0.358-3.74) H 09/15/18 06:40 Urine Color Yellow (Yellow) 09/15/18 08:20 Urine Clarity Cloudy 09/15/18 08:20 Urine pH 6.0 (5-8) 09/15/18 08:20 Ur Specific [place] >= 1.030 (1.005-1.025) H 09/15/18 08:20 Urine Protein >=300 mg/dL (Negative) H 09/15/18 08:20 Urine Ketones Negative mg/dL (Negative) 09/15/18 08:20 Urine Blood Moderate (Negative) H 09/15/18 08:20 Urine Nitrite Positive (Negative) H 09/15/18 08:20 Urine Bilirubin Negative (Negative) 09/15/18 08:20 Urine Urobilinogen 0.2 EU/dL (Up TO 0.2) 09/15/18 08:20 Ur Leukocyte Esterase Small (Negative) H 09/15/18 08:20 Urine RBC Not Applicable 09/15/18 08:20 Urine WBC >50 HPF (0-5) 09/15/18 08:20 Ur Epithelial Cells Not Applicable 09/15/18 08:20 Urine Crystals Not Applicable 09/15/18 08:20 Urine Bacteria Not Applicable 09/15/18 08:20 Urine Mucus Not Applicable 09/15/18 08:20 Ur Culture Indicated? Yes 09/15/18 08:20 Urine Glucose Negative mg/dL (Negative) 09/15/18 08:20 Urine HCG, Qual Negative 09/15/18 08:20 Patient ABO/Rh O Positive 09/15/18 06:40 Antibody Screen Negative 09/15/18 06:40 Crossmatch See Detail 09/15/18 06:40
[2018-09-18] MEDS: Normal Saline Flush 10 ML SYR IVP ×2 (11:58→15:50)
[2018-09-18] MEDS: Normal Saline 1,000 ML 100 ML IV ×2 (12:53→23:29)
[2018-09-18 15:47] LABS: HCT 27.9 % (36.0-46.0); Mean Corp. HGB Concentration 32.3 g/dL (32.0-36.0); Mean Corpuscular Hemoglobin 30.2 pg (27.0-33.0); Mean Corpuscular Volume 93.6 fL (80-95); Mean Platelet Volume 10.8 fL (8.0-11.0); Platelet Count 171 x1000/uL (130-400); RBC 2.98 m/cumm (4.00-5.20); White Blood Cell Count 4.13 k/cumm (4.4-10.8)
--- NOTE | 2018-09-18 16:19 | W.PM.PROGNOT ---
Date of Service Date of service: 09/18/18 Time of Service: 16:19 Assessment and Plan (1) Blood loss anemia: Current visit: No Status: Acute Dysfunctional Uterine Bleeding while on anticoagulation with apixaban (DVT Prophylaxis dosing), now s/p Total Abdominal Hysterectomy. Hemoglobin remains stable. Monitor. (2) UTI (urinary tract infection): Current visit: Yes Status: Acute Pansensitive Klebsiella. Continue day #4 of antibiotic therapy, with plans of changing to oral Cipro tomorrow. History of Recurrent UTIs in setting of neurogenic bladder. (3) Neurogenic bladder: Current visit: No Status: Acute Noted, with previously reported recurrent UTIs. Review of prior culture results with evidence of Citrobacter freundii, Klebsiella, and Pseudomonas, E.Coli - all essentially pansensitive. Prior hospitalization with Post void bladder scan without residual. Ms. Salamanca follows with urology chronically. (4) Type 2 diabetes mellitus with hyperglycemia: Current visit: No Status: Chronic Unsure of current treatment modality, and whether the patient is simply diet controlled. No evidence of insulin or other agents with review of home med list. Morning blood sugar appears minimally elevated only. Continue to monitor, and initiate sliding scale coverage if needed. Current blood sugars in the 80-100's. 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 Patient has a history of former resection, radiation therapy, and reconstructive surgery. (6) MS (multiple sclerosis): Current visit: No Status: Chronic Noted. (7) DVT (deep venous thrombosis): Current visit: No Status: Resolved Continue SCDs, TEDs. Given History of DVTs and patient's chronic immobility, would recommend initiating prophylactic doses of apixaban as soon as safe from a surgical standpoint - patient admitted for acute blood loss anemia, but is now s/p FANNY and should be safe to resume anticoagulation chronically when appropriate. Subjective Interval history since last seen: Pleasant but unfortunate 37 year old woman with a prior medical history significant for prior DVT on anticoagulation with Apixaban and Hemochromatosis, who is a [employer]'s Witness, admitted from [facility] Emergency Department to the [facility] service with a diagnosis of Dysfunctional Uterine Bleeding. Ms. Salamanca has a past medical history significant for MS initially diagnosed at 13 years of age. 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 She has a history of DVT in the past as well, maintained on prophylactic doses of apixaban. Her other history includes DM, and carcinoma of the tongue s/p resection, radiation, and reconstructive surgery, as well as note of prior diagnosis of Hemochromatosis Patient presented with noted 2 week history of heavy vaginal bleeding, with subsequent development of significant anemia. Following admission Ms. Zacarias Hgb dropped significantly to a value as low as 4.6 - she did finally agree to transfusion (Jehova's Witness). Has undergone FANNY on 09/17 via [facility], and now with low but stable Hemoglobin. She has also been diagnosed with a UTI, and in fact has a history of recurrent UTI's with her last hospitalization being in the setting of Urosepsis. Cultures so far showing an essentially pansensitive Klebsiella Pneumoniae. No overnight events reported. Remains afebrile. Exam Narrative Exam Narrative: General: Patient is chronically ill appearing but in no acute distress, AAOX3 Neck: Supple CV: Regular, nontachycardic, S1S2, No rubs, murmurs, or gallops. Pulmonary: Clear to auscultation bilaterally, no crackles, wheezing, or rhonchi on limited anterior and lateral exam. Abdomen: + Bowel Sounds, soft, nondistended. Mildly tender. Vascular: Mild b/l nonpitting lower extremity edema Psych: Normal mood and affect. Objective Objective Clinical Data: Abnormal lab results 09/15/18 09/15/18 09/18/18 Range/Units 06:40 08:20 05:55 WBC (4.4-10.8) k/cumm RBC (4.00-5.20) m/cumm Hgb (12.0-15.5) g/dL Hct (36.0-46.0) % RDW (11.7-14.6) % Absolute Lymphocytes (1.2-3.4) k/cumm Chloride 111 H (98-107) mmol/L BUN 6 L (7-18) mg/dL Creatinine 0.33 L (0.55-1.02) mg/dL Calcium 7.2 L (8.5-10.1) mg/dL Ur Specific [place] >= 1.030 H (1.005-1.025) Urine Protein >=300 H (Negative) mg/dL Urine Blood Moderate H (Negative) Urine Nitrite Positive H (Negative) Ur Leukocyte Esterase Small H (Negative) Crossmatch See Detail 09/18/18 09/18/18 Range/Units 05:55 15:35 WBC 4.30 L 4.13 L (4.4-10.8) k/cumm RBC 2.99 L 2.98 L (4.00-5.20) m/cumm Hgb 9.0 L 9.0 L (12.0-15.5) g/dL Hct 27.9 L 27.9 L (36.0-46.0) % RDW 16.1 H 16.0 H (11.7-14.6) % Absolute Lymphocytes 0.31 L (1.2-3.4) k/cumm Chloride (98-107) mmol/L BUN (7-18) mg/dL Creatinine (0.55-1.02) mg/dL Calcium (8.5-10.1) mg/dL Ur Specific [place] (1.005-1.025) Urine Protein (Negative) mg/dL Urine Blood (Negative) Urine Nitrite (Negative) Ur Leukocyte Esterase (Negative) Crossmatch Vital Signs Temperature 37.3 C 09/18/18 12:11 Temperature Source Tympanic 09/18/18 12:11 Pulse 105 H 09/18/18 14:01 Pulse Rhythm Regular 09/15/18 07:35 Pulse 111 H 09/18/18 14:01 Respiratory Rate 20 09/18/18 14:01 Respiratory Effort 09/18/18 12:11 Respiratory Depth Normal 09/18/18 12:11 Respiratory Pattern Normal 09/18/18 12:11 Blood Pressure 106/59 L 09/18/18 14:01 Blood Pressure Mean 70 09/18/18 14:01 Blood Pressure Position Supine 09/18/18 12:11 Pulse Oximetry 98 09/18/18 14:01 Respiratory End-tidal CO2 33 09/16/18 16:25 Oxygen Delivery Method Room Air 09/18/18 12:11 Oxygen Flow Rate 0 09/18/18 12:11 Pain Level 2 09/18/18 00:00 Comment 09/18/18 02:00 Intake & Output 09/17/18 09/18/18 09/18/18 23:59 11:59 23:59 Intake Total 1890 / 5977.5 1172.5 / 1172.5 Output Total 225 / 975 425 / 625 200 / 625 Balance 1665 / 5002.5 747.5 / 547.5 -200 / 547.5 Weight 61.5 kg Intake: IV 1500 / 5147.5 972.5 / 972.5 Oral 390 / 830 200 / 200 Output: Urine 225 / 975 425 / 625 200 / 625 Other: Urine Color Light Jed Dark Jed Light Jed Urine Appearance Clear Clear Clear Comment crockett cath in place and draining straw colored urine. crockett cath to gravity with jed urine aware of urine output for 7am-3pm Stool Size Small Smear Stool Characteristics Soft Soft Soft Brown Brown Laboratory Results WBC 4.13 k/cumm (4.4-10.8) L 09/18/18 15:35 RBC 2.98 m/cumm (4.00-5.20) L 09/18/18 15:35 Hgb 9.0 g/dL (12.0-15.5) L 09/18/18 15:35 Hct 27.9 % (36.0-46.0) L 09/18/18 15:35 MCV 93.6 fL (80-95) 09/18/18 15:35 MCH 30.2 pg (27.0-33.0) 09/18/18 15:35 MCHC 32.3 g/dL (32.0-36.0) 09/18/18 15:35 RDW 16.0 % (11.7-14.6) H 09/18/18 15:35 Plt Count 171 x1000/uL (130-400) 09/18/18 15:35 MPV 10.8 fL (8.0-11.0) 09/18/18 15:35 Immature Gran % 0.2 09/18/18 05:55 Neutrophils % 84.0 09/18/18 05:55 Lymphocytes % 7.2 09/18/18 05:55 Monocytes % 5.8 09/18/18 05:55 Eosinophils % 2.6 09/18/18 05:55 Basophils % 0.2 09/18/18 05:55 Absolute Neutrophils 3.61 k/cumm (1.2-6.7) 09/18/18 05:55 Absolute Lymphocytes 0.31 k/cumm (1.2-3.4) L 09/18/18 05:55 Absolute Monocytes 0.25 k/cumm (0.11-0.7) 09/18/18 05:55 Absolute Eosinophils 0.11 k/cumm (0.0-0.7) 09/18/18 05:55 Absolute Basophils 0.01 k/cumm (0.0-0.2) 09/18/18 05:55 Differential Comment Rbc morph reviewed 09/14/18 13:50 RBC Morphology See below 09/14/18 13:50 Polychromasia Present 09/14/18 13:50 Hypochromasia 1+ 09/14/18 13:50 Anisocytosis 1+ 09/14/18 13:50 Microcytosis 1+ 09/14/18 13:50 Macrocytosis 1+ 09/14/18 13:50 Retic Count 6.1 % (0.5-2.4) H 09/15/18 06:40 Haptoglobin 226 mg/dL (32-197) H 09/15/18 06:40 PT 10.6 sec (9.3-11.0) 09/16/18 01:45 INR 1.1 (0.9-1.1) 09/16/18 01:45 APTT 23.7 sec (21.0-31.4) 09/16/18 01:45 Fibrinogen 372 mg/dL (171-384) 09/16/18 07:45 D-Dimer 777 ng/mlFEU (<500) H 09/16/18 01:45 Sodium 142 mmol/L (136-145) 09/18/18 05:55 Potassium 3.8 mmol/L (3.5-5.1) 09/18/18 05:55 Chloride 111 mmol/L (98-107) H 09/18/18 05:55 Carbon Dioxide 23.5 mmol/L (21.0-32.0) 09/18/18 05:55 Anion Gap 7.5 mmol/L (3-11) 09/18/18 05:55 BUN 6 mg/dL (7-18) L 09/18/18 05:55 Creatinine 0.33 mg/dL (0.55-1.02) L 09/18/18 05:55 Estimated GFR/1.73 m2 >= 60.00 (mL/min/1.73m2) 09/18/18 05:55 Glucose 83 mg/dL (70-100) 09/18/18 05:55 Lactate 0.5 mmol/l (0.6-1.4) L 09/16/18 10:58 Calcium 7.2 mg/dL (8.5-10.1) L 09/18/18 05:55 Magnesium 2.1 mg/dL (1.8-2.4) 09/18/18 05:55 Iron 35 ug/dL (50-175) L 09/15/18 06:40 TIBC 187 ug/dL (250-450) L 09/15/18 06:40 Ferritin 103 ng/mL (8-388) 09/15/18 06:40 Total Bilirubin 0.7 mg/dL (0.2-1.0) 09/17/18 07:45 Conjugated Bilirubin 0.33 mg/dL (0.00-0.20) H 09/17/18 07:45 AST 14 U/L (15-37) L 09/17/18 07:45 ALT 13 U/L (12-78) 09/17/18 07:45 Alkaline Phosphatase 70 U/L (46-116) 09/17/18 07:45 Total Protein 5.4 g/dL (6.4-8.2) L 09/17/18 07:45 Albumin 2.1 g/dL (3.4-5.0) L 09/17/18 07:45 Vitamin B12 520 pg/mL (193-986) 09/15/18 06:40 Folate > 20.0 ng/mL (8.6-20.0) H 09/15/18 06:40 TSH 4.14 uIU/mL (0.358-3.74) H 09/15/18 06:40 Urine Color Yellow (Yellow) 09/15/18 08:20 Urine Clarity Cloudy 09/15/18 08:20 Urine pH 6.0 (5-8) 09/15/18 08:20 Ur Specific [place] >= 1.030 (1.005-1.025) H 09/15/18 08:20 Urine Protein >=300 mg/dL (Negative) H 09/15/18 08:20 Urine Ketones Negative mg/dL (Negative) 09/15/18 08:20 Urine Blood Moderate (Negative) H 09/15/18 08:20 Urine Nitrite Positive (Negative) H 09/15/18 08:20 Urine Bilirubin Negative (Negative) 09/15/18 08:20 Urine Urobilinogen 0.2 EU/dL (Up TO 0.2) 09/15/18 08:20 Ur Leukocyte Esterase Small (Negative) H 09/15/18 08:20 Urine RBC Not Applicable 09/15/18 08:20 Urine WBC >50 HPF (0-5) 09/15/18 08:20 Ur Epithelial Cells Not Applicable 09/15/18 08:20 Urine Crystals Not Applicable 09/15/18 08:20 Urine Bacteria Not Applicable 09/15/18 08:20 Urine Mucus Not Applicable 09/15/18 08:20 Ur Culture Indicated? Yes 09/15/18 08:20 Urine Glucose Negative mg/dL (Negative) 09/15/18 08:20 Urine HCG, Qual Negative 09/15/18 08:20 Patient ABO/Rh O Positive 09/15/18 06:40 Antibody Screen Negative 09/15/18 06:40 Crossmatch See Detail 09/15/18 06:40
[2018-09-18] MEDS: cefTRIAXone 1 GM/50 ML BAG IVPB (18:14)
--- NOTE | 2018-09-18 18:52 | PDOC.CMPRO ---
Care Management Progress Note S/O: Ethel remains in the ICU at this time. Ethel will most likely be ready for DC on Thursday. Ethel will require w/c van for DC. CM contacted Angus on 09/17, [facility], to request w/c van for Thursday if Ethel is medically ready, as [facility] will need to bring her w/c over for transport. Angus to alert CM of timing of van availability. A: 37 y/o female admitted 09/14/18 for blood loss anemia. P: Once medically cleared Ethel will return to [facility] once medically cleared. Ethel will transport via w/c van when ready.
--- NOTE | 2018-09-18 18:55 | CMPROGNOTE_ITS ---
Care Management Progress Note S/O: Ethel remains in the ICU at this time. Ethel will most likely be ready for DC on Thursday. Ethel will require w/c van for DC. CM contacted Angus on 09/17, [facility], to request w/c van for Thursday if Ethel is medically ready, as [facility] will need to bring her w/c over for transport. Angus to alert CM of timing of van availability. A: 37 y/o female admitted 09/14/18 for blood loss anemia. P: Once medically cleared Ethel will return to [facility] once medically cleared. Ethel will transport via w/c van when ready.
[2018-09-18] MEDS: clonazePAM 1 MG TAB PO (20:40)
[2018-09-18] MEDS: Ibuprofen 600 MG TAB PO (22:37)
[2018-09-19] VITALS (37 sets, daily range): BP systolic 80–125; BP diastolic 41–81; PULSE 66–102; RESP 11–30; TEMP 36.2–37.4; O2SAT 94–99
[2018-09-19] MEDS: Vitamins B Comp w/C TAB 1 TAB PO (08:32)
[2018-09-19] MEDS: Polyethylene Glycol 3350 17 GM PACKET PO (08:32)
[2018-09-19] MEDS: Pregabalin 25 MG CAP 75 MG PO ×2 (08:32→21:04)
[2018-09-19] MEDS: Baclofen 10 MG TAB 30 MG PO ×3 (08:32→21:05)
[2018-09-19] MEDS: Cyanocobalamin 500 MCG TAB 1000 MCG PO (08:32)
[2018-09-19] MEDS: Escitalopram 20 MG TAB 10 MG PO (08:32)
[2018-09-19] MEDS: Normal Saline 1,000 ML 100 ML IV (09:33)
[2018-09-19 10:36] LABS: HCT 27.4 % (36.0-46.0); HGB 8.9 g/dL (12.0-15.5)
--- NOTE | 2018-09-19 11:41 | PGE_ITS ---
Date of Service Date of service: 09/19/18 Time of Service: 11:38 Assessment and Plan (1) DVT prophylaxis: Current visit: Yes Status: Acute Plan is to restart Eliquis secondary to history of DVT. For that reason I have discontinued her ibuprofen and recommended continuing Tylenol with Dilaudid as needed for pain. (2) Need for intravenous access: Current visit: Yes Status: Suspected We will discontinue IV pain medicine and IV fluids. Because of poor eron ous access the central line will remain in place until discharge. (3) UTI (urinary tract infection): Current visit: Yes Status: Acute Patient is completed 5 days of ceftriaxone. Sensitivities indicated her Klebsiella is sensitive to cefazolin. Plan is to continue the Cefzil and 500 mg 3 times daily for total of 4 more days to complete 10 days of therapy. Qualifiers: Urinary tract infection type: acute cystitis Hematuria presence: without hematuria Qualified Code(s): N30.00 - Acute cystitis without hematuria (4) Postoperative pain: Current visit: Yes Status: Acute Will discontinue NSAIDs because of restarting her anticoagulation plan is to continue with Tylenol and oral Dilaudid. (5) Blood loss anemia: Current visit: Yes Status: Acute Stable H&H stable vital signs. Patient's low MBP is not result of continued blood loss. (6) Discharge planning issues: Current visit: No Status: Acute I will send prescription for cephalexin to her mail order pharmacy in anticipation of discharge tomorrow. Care management has kindly notified [facility] and [facility] of need for assistance with transportation. I will follow-up with patient with visits to [facility]. She does not require [facility]. Subjective Patient reports: tolerating a regular diet, flatus, bowel movement (after Dulcolax suppository. feels that she can go more.) and fever (TMax 99.7.) Interval history since last seen: Events of past 24hrs: MBP: between 71-79. Pulse 70 range. repeat H/H yesterday unchanged. I/O: 24 UO 1025. Pt's main complaint is abd distention from constipation. Some response to [place] Dulcolax. Completed day (5) Ceftriaxone. Has been w/o Eliquis since 09/13/18. Exam Const General: cooperative and no acute distress Nutritional Appearance: average body habitus Orientation: alert, awake and oriented x3 Limitations: physical limitations Chest Chest: normal inspection of the chest (central port site C/D/I.) Resp Effort & Inspection: normal respiratory effort Auscultation: clear to auscultation bilaterally Cardio Palpation: normal PMI Rate: regular rate Rhythm: regular rhythm Heart Sounds: S1 normal and S2 normal Pulses: dorsalis pedis pulses present GI Inspection: incision (Clean dry and intact) Palpation: soft Percussion: tympanic to percussion Auscultation: hyperactive bowel sounds General: deferred Other: Crockett to gravity drainage with clear jed urine in the Crockett bag Skin General skin exam: no rashes or lesions noted Extrem General: normal capillary refill, edema (Improving nonpitting lower extremities) and other (Right lower extremity contracted at the knee) Left lower extremity: foot (Foot drop left foot) Psych Appearance: grossly normal Mental Status: mental status grossly normal Mood: congruent mood Affect: normal affect Thought Process: normal Thought Content: normal Insight: insight good Judgment: judgment good Objective Objective Clinical Data: Abnormal lab results 09/18/18 09/19/18 Range/Units 15:35 10:25 WBC 4.13 L (4.4-10.8) k/cumm RBC 2.98 L (4.00-5.20) m/cumm Hgb 9.0 L 8.9 L (12.0-15.5) g/dL Hct 27.9 L 27.4 L (36.0-46.0) % RDW 16.0 H (11.7-14.6) % Vital Signs Temperature 97.3 F L 09/19/18 08:43 Temperature Source Temporal Artery Scan 09/19/18 08:43 Pulse 66 09/19/18 08:43 Pulse Rhythm Regular 09/15/18 07:35 Pulse 76 09/19/18 05:01 Respiratory Rate 18 09/19/18 08:43 Respiratory Effort 09/19/18 08:43 Respiratory Depth Normal 09/19/18 08:43 Respiratory Pattern Normal 09/19/18 08:43 Blood Pressure 89/63 L 09/19/18 08:43 Blood Pressure Mean 71 09/19/18 08:43 Blood Pressure Position Supine 09/19/18 08:43 Pulse Oximetry 99 09/19/18 08:43 Respiratory End-tidal CO2 33 09/16/18 16:25 Oxygen Delivery Method Room Air 09/19/18 08:43 Oxygen Flow Rate 0 09/19/18 08:43 Pain Level 2 09/19/18 04:25 Comment 09/18/18 02:00 Intake & Output 09/18/18 09/18/18 09/19/18 11:59 23:59 11:59 Intake Total 1172.5 / 2172.5 1000 / 2172.5 1100 / 1100 Output Total 425 / 625 200 / 625 1025 / 1025 Balance 747.5 / 1547.5 800 / 1547.5 75 / 75 Weight 135 lb 9.349 oz 154 lb 5.177 oz Intake: IV 972.5 / 1971.5 1000 / 1971.5 1000 / 1000 Oral 200 / 200 100 / 100 Output: Urine 425 / 625 200 / 625 1025 / 1025 Other: Urine Color Dark Jed Light Jed Yellow Urine Appearance Clear Clear Clear Comment crockett cath to gravity with jed urine crockett to gravity with light jed urine crockett to gravity with light jed urine Stool Size Small Smear Small Stool Characteristics Soft Soft Soft Brown Brown Brown Laboratory Results WBC 4.13 k/cumm (4.4-10.8) L 09/18/18 15:35 RBC 2.98 m/cumm (4.00-5.20) L 09/18/18 15:35 Hgb 8.9 g/dL (12.0-15.5) L 09/19/18 10:25 Hct 27.4 % (36.0-46.0) L 09/19/18 10:25 MCV 93.6 fL (80-95) 09/18/18 15:35 MCH 30.2 pg (27.0-33.0) 09/18/18 15:35 MCHC 32.3 g/dL (32.0-36.0) 09/18/18 15:35 RDW 16.0 % (11.7-14.6) H 09/18/18 15:35 Plt Count 171 x1000/uL (130-400) 09/18/18 15:35 MPV 10.8 fL (8.0-11.0) 09/18/18 15:35 Immature Gran % 0.2 09/18/18 05:55 Neutrophils % 84.0 09/18/18 05:55 Lymphocytes % 7.2 09/18/18 05:55 Monocytes % 5.8 09/18/18 05:55 Eosinophils % 2.6 09/18/18 05:55 Basophils % 0.2 09/18/18 05:55 Absolute Neutrophils 3.61 k/cumm (1.2-6.7) 09/18/18 05:55 Absolute Lymphocytes 0.31 k/cumm (1.2-3.4) L 09/18/18 05:55 Absolute Monocytes 0.25 k/cumm (0.11-0.7) 09/18/18 05:55 Absolute Eosinophils 0.11 k/cumm (0.0-0.7) 09/18/18 05:55 Absolute Basophils 0.01 k/cumm (0.0-0.2) 09/18/18 05:55 Differential Comment Rbc morph reviewed 09/14/18 13:50 RBC Morphology See below 09/14/18 13:50 Polychromasia Present 09/14/18 13:50 Hypochromasia 1+ 09/14/18 13:50 Anisocytosis 1+ 09/14/18 13:50 Microcytosis 1+ 09/14/18 13:50 Macrocytosis 1+ 09/14/18 13:50 Retic Count 6.1 % (0.5-2.4) H 09/15/18 06:40 Haptoglobin 226 mg/dL (32-197) H 09/15/18 06:40 PT 10.6 sec (9.3-11.0) 09/16/18 01:45 INR 1.1 (0.9-1.1) 09/16/18 01:45 APTT 23.7 sec (21.0-31.4) 09/16/18 01:45 Fibrinogen 372 mg/dL (171-384) 09/16/18 07:45 D-Dimer 777 ng/mlFEU (<500) H 09/16/18 01:45 Sodium 142 mmol/L (136-145) 09/18/18 05:55 Potassium 3.8 mmol/L (3.5-5.1) 09/18/18 05:55 Chloride 111 mmol/L (98-107) H 09/18/18 05:55 Carbon Dioxide 23.5 mmol/L (21.0-32.0) 09/18/18 05:55 Anion Gap 7.5 mmol/L (3-11) 09/18/18 05:55 BUN 6 mg/dL (7-18) L 09/18/18 05:55 Creatinine 0.33 mg/dL (0.55-1.02) L 09/18/18 05:55 Estimated GFR/1.73 m2 >= 60.00 (mL/min/1.73m2) 09/18/18 05:55 Glucose 83 mg/dL (70-100) 09/18/18 05:55 Lactate 0.5 mmol/l (0.6-1.4) L 09/16/18 10:58 Calcium 7.2 mg/dL (8.5-10.1) L 09/18/18 05:55 Magnesium 2.1 mg/dL (1.8-2.4) 09/18/18 05:55 Iron 35 ug/dL (50-175) L 09/15/18 06:40 TIBC 187 ug/dL (250-450) L 09/15/18 06:40 Ferritin 103 ng/mL (8-388) 09/15/18 06:40 Total Bilirubin 0.7 mg/dL (0.2-1.0) 09/17/18 07:45 Conjugated Bilirubin 0.33 mg/dL (0.00-0.20) H 09/17/18 07:45 AST 14 U/L (15-37) L 09/17/18 07:45 ALT 13 U/L (12-78) 09/17/18 07:45 Alkaline Phosphatase 70 U/L (46-116) 09/17/18 07:45 Total Protein 5.4 g/dL (6.4-8.2) L 09/17/18 07:45 Albumin 2.1 g/dL (3.4-5.0) L 09/17/18 07:45 Vitamin B12 520 pg/mL (193-986) 09/15/18 06:40 Folate > 20.0 ng/mL (8.6-20.0) H 09/15/18 06:40 TSH 4.14 uIU/mL (0.358-3.74) H 09/15/18 06:40 Urine Color Yellow (Yellow) 09/15/18 08:20 Urine Clarity Cloudy 09/15/18 08:20 Urine pH 6.0 (5-8) 09/15/18 08:20 Ur Specific [place] >= 1.030 (1.005-1.025) H 09/15/18 08:20 Urine Protein >=300 mg/dL (Negative) H 09/15/18 08:20 Urine Ketones Negative mg/dL (Negative) 09/15/18 08:20 Urine Blood Moderate (Negative) H 09/15/18 08:20 Urine Nitrite Positive (Negative) H 09/15/18 08:20 Urine Bilirubin Negative (Negative) 09/15/18 08:20 Urine Urobilinogen 0.2 EU/dL (Up TO 0.2) 09/15/18 08:20 Ur Leukocyte Esterase Small (Negative) H 09/15/18 08:20 Urine RBC Not Applicable 09/15/18 08:20 Urine WBC >50 HPF (0-5) 09/15/18 08:20 Ur Epithelial Cells Not Applicable 09/15/18 08:20 Urine Crystals Not Applicable 09/15/18 08:20 Urine Bacteria Not Applicable 09/15/18 08:20 Urine Mucus Not Applicable 09/15/18 08:20 Ur Culture Indicated? Yes 09/15/18 08:20 Urine Glucose Negative mg/dL (Negative) 09/15/18 08:20 Urine HCG, Qual Negative 09/15/18 08:20 Patient ABO/Rh O Positive 09/15/18 06:40 Antibody Screen Negative 09/15/18 06:40 Crossmatch See Detail 09/15/18 06:40
[2018-09-19] MEDS: Cephalexin 500 MG CAP PO ×2 (13:59→21:04)
[2018-09-19] MEDS: Normal Saline Flush 10 ML SYR IVP ×3 (14:03→23:55)
--- NOTE | 2018-09-19 14:17 | W.PM.PROGNOT ---
Date of Service Date of service: 09/19/18 Time of Service: 14:17 Assessment and Plan (1) Blood loss anemia: Current visit: Yes Status: Acute Dysfunctional Uterine Bleeding while on anticoagulation with apixaban (DVT Prophylaxis dosing), now s/p Total Abdominal Hysterectomy. Hemoglobin remains stable. Monitor. (2) UTI (urinary tract infection): Current visit: Yes Status: Acute Pansensitive Klebsiella. Continue day #5 of antibiotic therapy - agree with change to oral regimen. History of Recurrent UTIs in setting of neurogenic bladder and fecal incontinence. Qualifiers: Urinary tract infection type: acute cystitis Hematuria presence: without hematuria Qualified Code(s): N30.00 - Acute cystitis without hematuria (3) Neurogenic bladder: Current visit: No Status: Acute Noted, with previously reported recurrent UTIs. Review of prior culture results with evidence of Citrobacter freundii, Klebsiella, and Pseudomonas, E.Coli - all essentially pansensitive. Prior hospitalization with Post void bladder scan without residual. Ms. Salamanca follows with urology chronically. (4) Type 2 diabetes mellitus with hyperglycemia: Current visit: No Status: Chronic Unsure of current treatment modality, and whether the patient is simply diet controlled. No evidence of insulin or other agents with review of home med list. Morning blood sugar appears minimally elevated only. Continue to monitor, and initiate sliding scale coverage if needed. Current blood sugars in the 80-100's. 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 Patient has a history of former resection, radiation therapy, and reconstructive surgery. (6) MS (multiple sclerosis): Current visit: No Status: Chronic Noted. (7) DVT (deep venous thrombosis): Current visit: No Status: Resolved Continue SCDs, TEDs. Given History of DVTs and patient's chronic immobility apixaban was restarted - patient admitted for acute blood loss anemia, but is now s/p FANNY and should be safe to resume anticoagulation. Monitor H/H. Subjective Interval history since last seen: Pleasant but unfortunate 37 year old woman with a prior medical history significant for prior DVT on anticoagulation with Apixaban and Hemochromatosis, who is a [employer]'s Witness, admitted from [facility] Emergency Department to the [facility] service with a diagnosis of Dysfunctional Uterine Bleeding. Ms. Salamanca has a past medical history significant for MS initially diagnosed at 13 years of age. 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 She has a history of DVT in the past, maintained on prophylactic doses of apixaban. Her other history includes DM, and carcinoma of the tongue s/p resection, radiation, and reconstructive surgery, as well as note of prior diagnosis of Hemochromatosis Patient presented with noted 2 week history of heavy vaginal bleeding, with subsequent development of significant anemia. Following admission Ms. Urbinas Hgb dropped significantly to a value as low as 4.6 - she did finally agree to transfusion (Jehova's Witness). Underwent FANNY on 09/17 via [facility], and now with low but stable Hemoglobin. She has also been diagnosed with a UTI, and in fact has a history of recurrent UTI's with her last hospitalization being in the setting of Urosepsis. Cultures so far showing an essentially pansensitive Klebsiella Pneumoniae. No overnight events reported. Remains afebrile. Exam Narrative Exam Narrative: General: Patient is chronically ill appearing but in no acute distress, AAOX3 Neck: Supple CV: Regular, nontachycardic, S1S2, No rubs, murmurs, or gallops. Pulmonary: Clear to auscultation bilaterally, no crackles, wheezing, or rhonchi on limited anterior and lateral exam. Abdomen: + Bowel Sounds, soft, nondistended. Mildly tender. Horizontal lower abdominal surgical incision appears to be healing well. Vascular: Mild b/l nonpitting lower extremity edema Psych: Normal mood and affect. Objective Objective Clinical Data: Abnormal lab results 09/18/18 09/19/18 Range/Units 15:35 10:25 WBC 4.13 L (4.4-10.8) k/cumm RBC 2.98 L (4.00-5.20) m/cumm Hgb 9.0 L 8.9 L (12.0-15.5) g/dL Hct 27.9 L 27.4 L (36.0-46.0) % RDW 16.0 H (11.7-14.6) % Vital Signs Temperature 36.6 C 09/19/18 12:38 Temperature Source Temporal Artery Scan 09/19/18 12:38 Pulse 87 09/19/18 14:00 Pulse Rhythm Regular 09/15/18 07:35 Pulse 91 H 09/19/18 14:00 Respiratory Rate 20 09/19/18 14:00 Respiratory Effort 09/19/18 12:38 Respiratory Depth Normal 09/19/18 12:38 Respiratory Pattern Normal 09/19/18 12:38 Blood Pressure 125/74 09/19/18 14:00 Blood Pressure Mean 86 09/19/18 14:00 Blood Pressure Position Sitting 09/19/18 12:38 Pulse Oximetry 98 09/19/18 12:38 Respiratory End-tidal CO2 33 09/16/18 16:25 Oxygen Delivery Method Room Air 09/19/18 12:38 Oxygen Flow Rate 0 09/19/18 12:38 Pain Level 2 09/19/18 04:25 Comment 09/18/18 02:00 Intake & Output 09/18/18 09/19/18 09/19/18 23:59 11:59 23:59 Intake Total 1000 / 2172.5 1448.333 / 1448.333 Output Total 200 / 625 1025 / 1025 Balance 800 / 1547.5 423.333 / 423.333 Weight 70 kg Intake: IV 1000 / 1972.5 1223.333 / 1223.333 Oral 225 / 225 Output: Urine 200 / 625 1025 / 1025 Other: Urine Color Light Jed Yellow Urine Appearance Clear Clear Comment crockett to gravity with light jed urine crockett to gravity with light jed urine crockett to gravity with light jed urine Stool Size Smear Moderate Stool Characteristics Soft Soft Brown Brown Laboratory Results WBC 4.13 k/cumm (4.4-10.8) L 09/18/18 15:35 RBC 2.98 m/cumm (4.00-5.20) L 09/18/18 15:35 Hgb 8.9 g/dL (12.0-15.5) L 09/19/18 10:25 Hct 27.4 % (36.0-46.0) L 09/19/18 10:25 MCV 93.6 fL (80-95) 09/18/18 15:35 MCH 30.2 pg (27.0-33.0) 09/18/18 15:35 MCHC 32.3 g/dL (32.0-36.0) 09/18/18 15:35 RDW 16.0 % (11.7-14.6) H 09/18/18 15:35 Plt Count 171 x1000/uL (130-400) 09/18/18 15:35 MPV 10.8 fL (8.0-11.0) 09/18/18 15:35 Immature Gran % 0.2 09/18/18 05:55 Neutrophils % 84.0 09/18/18 05:55 Lymphocytes % 7.2 09/18/18 05:55 Monocytes % 5.8 09/18/18 05:55 Eosinophils % 2.6 09/18/18 05:55 Basophils % 0.2 09/18/18 05:55 Absolute Neutrophils 3.61 k/cumm (1.2-6.7) 09/18/18 05:55 Absolute Lymphocytes 0.31 k/cumm (1.2-3.4) L 09/18/18 05:55 Absolute Monocytes 0.25 k/cumm (0.11-0.7) 09/18/18 05:55 Absolute Eosinophils 0.11 k/cumm (0.0-0.7) 09/18/18 05:55 Absolute Basophils 0.01 k/cumm (0.0-0.2) 09/18/18 05:55 Differential Comment Rbc morph reviewed 09/14/18 13:50 RBC Morphology See below 09/14/18 13:50 Polychromasia Present 09/14/18 13:50 Hypochromasia 1+ 09/14/18 13:50 Anisocytosis 1+ 09/14/18 13:50 Microcytosis 1+ 09/14/18 13:50 Macrocytosis 1+ 09/14/18 13:50 Retic Count 6.1 % (0.5-2.4) H 09/15/18 06:40 Haptoglobin 226 mg/dL (32-197) H 09/15/18 06:40 PT 10.6 sec (9.3-11.0) 09/16/18 01:45 INR 1.1 (0.9-1.1) 09/16/18 01:45 APTT 23.7 sec (21.0-31.4) 09/16/18 01:45 Fibrinogen 372 mg/dL (171-384) 09/16/18 07:45 D-Dimer 777 ng/mlFEU (<500) H 09/16/18 01:45 Sodium 142 mmol/L (136-145) 09/18/18 05:55 Potassium 3.8 mmol/L (3.5-5.1) 09/18/18 05:55 Chloride 111 mmol/L (98-107) H 09/18/18 05:55 Carbon Dioxide 23.5 mmol/L (21.0-32.0) 09/18/18 05:55 Anion Gap 7.5 mmol/L (3-11) 09/18/18 05:55 BUN 6 mg/dL (7-18) L 09/18/18 05:55 Creatinine 0.33 mg/dL (0.55-1.02) L 09/18/18 05:55 Estimated GFR/1.73 m2 >= 60.00 (mL/min/1.73m2) 09/18/18 05:55 Glucose 83 mg/dL (70-100) 09/18/18 05:55 Lactate 0.5 mmol/l (0.6-1.4) L 09/16/18 10:58 Calcium 7.2 mg/dL (8.5-10.1) L 09/18/18 05:55 Magnesium 2.1 mg/dL (1.8-2.4) 09/18/18 05:55 Iron 35 ug/dL (50-175) L 09/15/18 06:40 TIBC 187 ug/dL (250-450) L 09/15/18 06:40 Ferritin 103 ng/mL (8-388) 09/15/18 06:40 Total Bilirubin 0.7 mg/dL (0.2-1.0) 09/17/18 07:45 Conjugated Bilirubin 0.33 mg/dL (0.00-0.20) H 09/17/18 07:45 AST 14 U/L (15-37) L 09/17/18 07:45 ALT 13 U/L (12-78) 09/17/18 07:45 Alkaline Phosphatase 70 U/L (46-116) 09/17/18 07:45 Total Protein 5.4 g/dL (6.4-8.2) L 09/17/18 07:45 Albumin 2.1 g/dL (3.4-5.0) L 09/17/18 07:45 Vitamin B12 520 pg/mL (193-986) 09/15/18 06:40 Folate > 20.0 ng/mL (8.6-20.0) H 09/15/18 06:40 TSH 4.14 uIU/mL (0.358-3.74) H 09/15/18 06:40 Urine Color Yellow (Yellow) 09/15/18 08:20 Urine Clarity Cloudy 09/15/18 08:20 Urine pH 6.0 (5-8) 09/15/18 08:20 Ur Specific [place] >= 1.030 (1.005-1.025) H 09/15/18 08:20 Urine Protein >=300 mg/dL (Negative) H 09/15/18 08:20 Urine Ketones Negative mg/dL (Negative) 09/15/18 08:20 Urine Blood Moderate (Negative) H 09/15/18 08:20 Urine Nitrite Positive (Negative) H 09/15/18 08:20 Urine Bilirubin Negative (Negative) 09/15/18 08:20 Urine Urobilinogen 0.2 EU/dL (Up TO 0.2) 09/15/18 08:20 Ur Leukocyte Esterase Small (Negative) H 09/15/18 08:20 Urine RBC Not Applicable 09/15/18 08:20 Urine WBC >50 HPF (0-5) 09/15/18 08:20 Ur Epithelial Cells Not Applicable 09/15/18 08:20 Urine Crystals Not Applicable 09/15/18 08:20 Urine Bacteria Not Applicable 09/15/18 08:20 Urine Mucus Not Applicable 09/15/18 08:20 Ur Culture Indicated? Yes 09/15/18 08:20 Urine Glucose Negative mg/dL (Negative) 09/15/18 08:20 Urine HCG, Qual Negative 09/15/18 08:20 Patient ABO/Rh O Positive 09/15/18 06:40 Antibody Screen Negative 09/15/18 06:40 Crossmatch See Detail 09/15/18 06:40
--- NOTE | 2018-09-19 15:28 | CMPROGNOTE_ITS ---
Care Management Progress Note S/O: Ethel remains in the ICU at this time. Ethel will most likely be ready for DC on Thursday. Ethel will require w/c van for DC. CM contacted Angus on 09/17, [facility], to request w/c van for Thursday if Ethel is medically ready, as [facility] will need to bring her w/c over for transport. Angus to alert CM of timing of van availability. A: 37 y/o female admitted 09/14/18 for blood loss anemia. P: Ethel will return to [facility] once medically cleared. Ethel will transport via w/c van when ready.
[2018-09-19] MEDS: clonazePAM 1 MG TAB PO (21:05)
[2018-09-19] MEDS: Apixaban 2.5 MG TAB PO (21:05)
[2018-09-20] VITALS (13 sets, daily range): BP systolic 103–136; BP diastolic 67–91; PULSE 85–100; RESP 17–25; TEMP 36.1–37.2; O2SAT 94–96
[2018-09-20 06:44] LABS: HCT 29.1 % (36.0-46.0); HGB 9.3 g/dL (12.0-15.5)
--- NOTE | 2018-09-20 08:03 | W.PM.DS.N ---
Date of service: 09/20/18 Time of Service: 08:03 DS: Diagnosis Discharge Diagnosis (1) Blood loss anemia: Status: Acute Asessment and Plan: -Admitted through the [facility] ED on 09/14/18 to the Carpentry Supervisor service: Diagnosis of abnormal uterine bleeding with resultant anemia and hypotension. -On admission 09/14/18 H/H 6.5/20.7 [id number]. Retic count 6.1, Nl coags. Low TIBC and low ferritin. Hospitalist service, hematology and anesthesia departments were consulted. patient initially declined -She has received 600mg of IV Tranexamic Acid IV and 25mg of IV Pr.emarin. Lastly Levothyroxine 50mcg was given for an elevated TSH -HD2 her H/H declined to 4.6/14.8. She was transfered her to ICU and a central line was placed. Attempt to transfer patient to tertiary care was unsuccessful because of lack of ICU beds at [facility] or [facility] After extensive counseling with the patient she consented to receive blood products. 4 units of PRBC and a 6 pack of platlets were administered. Plt have been ordered. - HD 3 H/H was 9.4/28.9 and she underwent an abdominal hysterectomy and bilateral salpingectomy. Ovaries were conserved. EBL 600cc. She received an additional unit of packed red blood cells. Her H&H stabilized postoperatively at 03/05. (2) UTI (urinary tract infection): Status: Acute Asessment and Plan: Klebsiella pneumonia on urine culture on admission. She received 5 days of ceftriaxone and was changed to cephalexin 500 mg 3 times a day to be completed on 09/23/18. (3) Neurogenic bladder: Status: Acute Asessment and Plan: Patient was catheterized for the majority of her hospital stay. 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 (9) DVT prophylaxis: Status: Acute Asessment and Plan: Patient has been on Eliquist was held during her hospitalization she received pneumatic compression devices for DVT prophylaxis. The Eliquis was restarted 2.5 mg twice daily the evening prior to discharge 09/19/18. Oh nonsteroidal anti-inflammatories been discontinued at that time (10) Discharge planning issues: Status: Acute Discharge Plan Disposition Patient Disposition: SNF (LEVEL 1) [facility] Condition: Stable Discharge Details Reason For Visit: BLOOD LOSS ANEMIA Admit Date/Time: 09/14/18 15:44 Admit Provider: Ivan Malave Attending Provider: Ivan Malave Primary Care Provider: Helen Leung Hospital Course Hospital Course: Specific issues on admission and follow-up were addressed in the diagnosis section of the chart. She underwent the above-stated procedure on 09/16/18. Post course was uncomplicated. She completed 5 days of ceftriaxone before being switched to oral cephalexin, her H&H remained stable, and had minimal pain from her abdominal incision. Home Meds and New Rx's Prescriptions: Continued baclofen 20 MG tablet 1.5 tab PO TID RF: 0 magnesium hydroxide [Milk of Magnesia] 400 MG/5 ML suspension 30 ml PO PRN RF: 0 cephalexin 500 mg capsule 500 mg PO TID Qty: 12 RF: 0 albuterol sulfate 2.5 MG/3 ML solution for nebulization 2.5 mg UPD Q2H PRN PRNRF: 0 miconazole nitrate 2 % Powder 1 appful topical PRN PRNRF: 0 apixaban 2.5 mg Tablet 2.5 mg PO BID RF: 0 biotin 5 mg/mL Liquid 5 ml PO PRN PRNRF: 0 acetaminophen [Tylenol] 325 MG tablet 650 mg PO Q6H PRN PRNRF: 0 escitalopram oxalate 20 MG tablet 10 mg PO DAILY RF: 0 bisacodyl 10 MG suppository [address] DAILY PRN PRN (Reason: Constipation) RF: 0 clonazepam [Klonopin] 1 MG tablet 1 mg PO QPM RF: 0 polyethylene glycol 3350 17 GM powder in packet 17 gm PO DAILY RF: 0 Lyrica 75 MG capsule 75 mg PO BID RF: 0 cholestyramine (with sugar) [Questran] 4 GM powder in packet 1 packet PO Q8H PRN PRN (Reason: loose stools) RF: 0 ondansetron HCl 4 MG tablet 1 tab PO Q8H PRN (Reason: Nausea) RF: 0 vitamin B complex Tablet 1 tab PO DAILY RF: 0 cholecalciferol (vitamin D3) [Vitamin D3] 400 unit Capsule 800 unit PO DAILY RF: 0 Discontinued Depo-Provera 400 MG/1 ML suspension 400 mg IM DIRECTED RF: 0 Glucagon Emergency Kit (human) 1 MG kit 1 mg IJ Q15MIN PRNRF: 0 Discharge Instructions Additional Instructions: Prescription has been sent to her pharmacy in [place] to continue the cephalexin until 09/24/2018. I plan to follow patient [facility] and rehab facility on a weekly basis until her incision is healed. Currently the pathology report is pending. I will discussed that results with the patient when it is available Activity:: Activity as Tolerated Equipment/Supplies:: No Equipment Needed Diet:: As Tolerated Discharge Orders Discharge Orders: Discharge Order (Routine); Ordered 09/20/18 Ordered By: Maddy Berry Exam Const General: comfortable Nutritional Appearance: average body habitus Orientation: alert, awake and oriented x3 Chest Chest: normal inspection of the chest (Central line will be removed prior to the patient's discharge) Resp Effort & Inspection: normal respiratory effort Auscultation: clear to auscultation bilaterally Cardio Rate: regular rate Heart Sounds: S1 normal and S2 normal GI Inspection: distended Palpation: soft Percussion: tympanic to percussion Auscultation: normal bowel sounds Skin General skin exam: other (Incision well approximated covered with skin glue.) Extrem General: other (Right LE contracted left foot drop present) Psych Appearance: grossly normal Mental Status: mental status grossly normal Speech and Movement: other (Speech impediment secondary to prior surgery) Mood: congruent mood Affect: normal affect Attitude: cooperative Thought Process: normal Thought Content: normal Insight: insight good DS: Data Vitals/I&O Vitals and I&O: Vital Signs Temperature 97.0 F L 09/20/18 03:15 Temperature Source Temporal Artery Scan 09/20/18 03:15 Pulse 97 H 09/20/18 04:12 Pulse Rhythm Regular 09/15/18 07:35 Pulse 96 H 09/20/18 04:12 Respiratory Rate 24 09/20/18 04:12 Respiratory Effort 09/20/18 03:15 Respiratory Depth Normal 09/20/18 03:15 Respiratory Pattern Normal 09/20/18 03:15 Blood Pressure 130/80 09/20/18 04:12 Blood Pressure Mean 92 09/20/18 04:12 Blood Pressure Position Supine 09/19/18 23:23 Pulse Oximetry 94 L 09/20/18 04:12 Respiratory End-tidal CO2 33 09/16/18 16:25 Oxygen Delivery Method Room Air 09/20/18 03:15 Oxygen Flow Rate 0 09/20/18 03:15 Pain Level 0 09/19/18 23:23 Comment 09/18/18 02:00 Intake & Output 09/19/18 09/19/18 09/20/18 11:59 23:59 11:59 Intake Total 1448.333 / 1791.666 343.333 / 1791.666 Output Total 1025 / 1625 600 / 1625 600 / 600 Balance 423.333 / 166.666 -256.667 / 166.666 -600 / -600 Weight 154 lb 5.177 oz 143 lb 1.28 oz Intake: IV 1223.333 / 1446.666 223.333 / 1446.666 Oral 225 / 345 120 / 345 Output: Urine 1025 / 1625 600 / 1625 600 / 600 Other: Urine Color Yellow Yellow Urine Appearance Clear Clear Comment crockett to gravity with light jed urine pt is incontinent of urine. large amount of urine noted on pad during change. 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) Hemochromatosis (Chronic) DVT (deep venous thrombosis) (Chronic) MS (multiple sclerosis) (Chronic) Depression Type 2 diabetes mellitus Neurogenic bladder (Chronic) Breakthrough bleeding on Depo-Provera (Acute) Catatonia (Resolved) Surgical History History of skin graft (Resolved) History of tracheostomy (Resolved) S/P percutaneous endoscopic gastrostomy (PEG) tube placement (Resolved) Family History Mother Multiple sclerosis Social History Smoking/Tobacco Use Status: Never Alcohol Intake: never Substance use type: does not use Caregiver/Support person: Yes (inpt at [facility] ) Details: bedbound Housing: care home Number of Children: 2 Communication Needs: None current occupation: disabled Sexually active: No Do you feel safe at home: Yes Do you feel safe in your relationship?: Yes Additional Social history: In process of . History History 2 Para Hx # Term Pregnancies 2 Multiple births Hx # Pregnancies Ectopic pregnancies AB induced Hx Number of Living Children AB spontaneous
[2018-09-20] MEDS: Acetaminophen 325 MG TAB 650 MG PO (10:02)
[2018-09-20] MEDS: Baclofen 10 MG TAB 30 MG PO (10:02)
[2018-09-20] MEDS: Vitamins B Comp w/C TAB 1 TAB PO (10:04)
[2018-09-20] MEDS: Apixaban 2.5 MG TAB PO (10:04)
[2018-09-20] MEDS: Escitalopram 20 MG TAB 10 MG PO (10:04)
[2018-09-20] MEDS: Cyanocobalamin 500 MCG TAB 1000 MCG PO (10:05)
[2018-09-20] MEDS: Pregabalin 25 MG CAP 75 MG PO (10:05)
[2018-09-20] MEDS: Cephalexin 500 MG CAP PO (10:05)
--- NOTE | 2018-09-20 12:06 | PDOC.CMDIS ---
LACE Index Scoring Tool - Questions: Length of Stay (in days): 7 - 13 Acuity (Admit via E.D.?): Yes Comorbidities: Diabetes w/o Complication E.D. 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 She will be transported via ambulance since she has not been up in her w/c for several weeks. Patient/Family Education Needs: RN to review d/c instructions with staff from [facility]. Patient aware of plans for transfer. Her aunt Jacy, who is her guardian, was notified of this plan and agrees. Services Needed at Discharge: Intermediate Facility
--- NOTE | 2018-09-20 12:12 | CMDISCH_ITS ---
LACE Index Scoring Tool - Questions: Length of Stay (in days): 7 - 13 Acuity (Admit via E.D.?): Yes Comorbidities: Diabetes w/o Complication E.D. Visits: 2 - Answers: Total Score: 11 Risk of Readmission: High Risk Care Management Discharge Reason for Hospitalization: Abnormal uterine bleeding Discharge Plan: She is returning to [facility] where she is emt intermediate resident. She will be transported via ambulance since she has not been up in her w/c for several weeks. Patient/Family Education Needs: RN to review d/c instructions with staff from [facility]. Patient aware of plans for transfer. Her aunt Jacy, who is her guardian, was notified of this plan and agrees. Services Needed at Discharge: [facility] Facility
--- NOTE | 2018-09-20 13:30 | NUR.NOTE ---
1330 Attempted to call report to [facility], no answer at this time.
== END 2018-09-20 14:28 | disposition skilled nursing facility (03) | DRG 742 ==
LOC: ER 16:05 → MS 16:20 → ICU 09-15 08:41
PROVIDERS: Internal Medicine; Nurse Anesthetist, Certified Registered; Obstetrics & Gynecology Gynecology; Admitting Provider Obstetrics & Gynecology; Emergency Provider Emergency Medicine; PCP Family Medicine; Visit Provider Obstetrics & Gynecology
PROC: 0UT90ZZ Resection of Uterus, Open Approach (ICD-10-PCS; CPT 58150; principal; 2018-09-16 14:30)
DX: N93.9 Abnormal uterine and vaginal bleeding, unspecified (principal); D62 Acute posthemorrhagic anemia; N39.0 Urinary tract infection, site not specified; N92.1 Excessive and frequent menstruation with irregular cycle; N71.1 Chronic inflammatory disease of uterus; N80.0 Endometriosis of uterus; N70.11 Chronic salpingitis; G35 Multiple sclerosis; E83.119 Hemochromatosis, unspecified; Z79.01 Long term (current) use of anticoagulants; Z74.01 Bed confinement status; Z86.718 Personal history of other venous thrombosis and embolism; Z53.1 Procedure and treatment not carried out because of patient's decision for reasons of belief and group pressure; B96.1 Klebsiella pneumoniae [K. pneumoniae] as the cause of diseases classified elsewhere; Z16.11 Resistance to penicillins; N31.9 Neuromuscular dysfunction of bladder, unspecified; N39.498 Other specified urinary incontinence; R94.6 Abnormal results of thyroid function studies; I95.89 Other hypotension; Z78.9 Other specified health status; M62.838 Other muscle spasm; G89.18 Other acute postprocedural pain; R00.0 Tachycardia, unspecified; Z90.710 Acquired absence of both cervix and uterus; Z90.79 Acquired absence of other genital organ(s); Z85.810 Personal history of malignant neoplasm of tongue
CPT/HCPCS: 58150; 36415; 36430; 36558; 36591; 36592; 71045; 80048; 80053; 80076; 85027; 85384; 86850; 86900; 86901; 86920; 87077; 87081; 99222; 99223; 99231; 99232; 99233; 99239; 99253; 99254; 99285; 99291; NC; 76830; 76856; 81003; 81015; 81025; 82607; 82728; 82746; 83010; 83540; 83550; 83605; 83735; 84443; 85014; 85018; 85025; 85045; 85379; 85610; 85730; 87086; 87186; 88307; 93970; 99284; J0690; J0696; J1410; J1885; J2250; J2405; J3420; J3480; J3490; J8597; P9016; P9035

== ENCOUNTER 2018-12-28 11:41 | Outpatient (REF) | payer MEDICARE, MEDICAID, SELFPAY ==
[2018-12-28 12:32] LABS: Bilirubin Negative (Negative); Blood Moderate (Negative); Clarity Cloudy (Clear); Glucose Negative (Negative); Ketones Negative (Negative); Leukocyte Esterase Large (Negative); Nitrite Positive (Negative); Urobilinogen 0.2 EU/dL (Up TO 0.2)
[2018-12-28 12:41] LABS: C & S Indicated? C&S Done As Ordered
== END 2018-12-28 12:01 ==
LOC: LBN 11:41
PROVIDERS: PCP Nurse Practitioner Adult Health; Visit Provider Nurse Practitioner Adult Health
DX: N39.0 Urinary tract infection, site not specified (principal)
CPT/HCPCS: 87077; 81003; 81015; 87086; 87186

== ENCOUNTER 2019-01-21 12:46 | Outpatient (REF) | payer MEDICARE, MEDICAID, SELFPAY ==
[2019-01-21 13:36] LABS: Bilirubin Negative (Negative); Blood Small (Negative); Clarity Clear (Clear); Glucose Negative (Negative); Ketones Negative (Negative); Leukocyte Esterase Large (Negative); Nitrite Positive (Negative); Specific Gravity 1.015 (1.005-1.025); Urobilinogen 0.2 EU/dL (Up TO 0.2); pH 7.5 (5-8)
[2019-01-21 13:51] LABS: Bacteria Many HPF (Negative); C & S Indicated? C&S Done As Ordered; Casts Negative LPF (Negative); Crystals Negative HPF (Negative); Epithelial Cells Negative HPF (Negative); Mucus Negative (Negative); RBC 20-50 (0-2); WBC >50 HPF (0-5)
== END 2019-01-21 13:06 ==
LOC: LBN 12:46
PROVIDERS: Visit Provider Nurse Practitioner Adult Health
DX: N39.0 Urinary tract infection, site not specified (principal)
CPT/HCPCS: 87077; 81003; 81015; 87086; 87186

== ENCOUNTER → 2019-02-16 12:19 | Outpatient (BNVA) | payer MEDICARE, MEDICAID, SELFPAY | PROVIDERS: Visit Provider Psychiatry & Neurology Neurology | DX: G35 Multiple sclerosis (principal); G82.20 Paraplegia, unspecified; E11.40 Type 2 diabetes mellitus with diabetic neuropathy, unspecified; R25.2 Cramp and spasm | CPT/HCPCS: 99213 ==

== ENCOUNTER 2019-02-19 12:01 | Outpatient (REF) | payer MEDICARE, MEDICAID, SELFPAY ==
[2019-02-19 14:11] LABS: Bilirubin Negative (Negative); Blood Trace-lysed (Negative); Clarity Sl Cloudy (Clear); Glucose Negative (Negative); Ketones Negative (Negative); Leukocyte Esterase Large (Negative); Nitrite Positive (Negative); Specific Gravity 1.015 (1.005-1.025); Urobilinogen 0.2 EU/dL (Up TO 0.2)
[2019-02-19 14:21] LABS: C & S Indicated? C&S Done As Ordered
== END 2019-02-19 12:21 ==
LOC: LBN 12:01
PROVIDERS: PCP Family Medicine; Visit Provider Family Medicine
DX: N39.0 Urinary tract infection, site not specified (principal)
CPT/HCPCS: 87077; 81003; 81015; 87086; 87186

== ENCOUNTER 2019-04-19 10:50 | Outpatient (CLI) | payer MEDICARE, MEDICAID, SELFPAY ==
[2019-04-19 13:05] LABS: Hemoglobin A1C 5.5 % (4.5-6.2)
== END 2019-04-19 11:10 ==
PROVIDERS: PCP Family Medicine; Visit Provider Nurse Practitioner Adult Health
DX: E11.9 Type 2 diabetes mellitus without complications (principal)
CPT/HCPCS: 83036

== ENCOUNTER 2019-05-03 11:00 | Outpatient (CLI) | payer MEDICARE, MEDICAID, SELFPAY ==
[2019-05-03 14:43] LABS: Anion Gap 9.4 mmol/L (3-11); BUN 15 mg/dL (7-18); CO2 26.6 mmol/L (21.0-32.0); CREATININE 0.62 mg/dL (0.55-1.02); Calcium 9.1 mg/dL (8.5-10.1); Chloride 104 mmol/L (98-107); Glucose 106 mg/dL (74-106); Potassium 3.7 mmol/L (3.5-5.1); Sodium 140 mmol/L (136-145)
== END 2019-05-03 11:20 ==
PROVIDERS: PCP Family Medicine; Visit Provider Nurse Practitioner Adult Health
DX: G35 Multiple sclerosis (principal)
CPT/HCPCS: 36415; 80048

== ENCOUNTER 2019-05-08 10:55 | Outpatient (REF) | payer MEDICARE, MEDICAID, SELFPAY ==
[2019-05-08 12:25] LABS: Bilirubin Negative (Negative); Blood Small (Negative); Clarity Cloudy (Clear); Glucose Negative (Negative); Ketones Negative (Negative); Leukocyte Esterase Moderate (Negative); Nitrite Positive (Negative); Specific Gravity 1.025 (1.005-1.025); Urobilinogen 0.2 EU/dL (Up TO 0.2)
[2019-05-08 12:42] LABS: Bacteria Many HPF (Negative); Crystals Negative HPF (Negative); Epithelial Cells Rare HPF (Negative); Mucus Negative (Negative); WBC >50 HPF (0-5)
[2019-05-08 12:43] LABS: C & S Indicated? C&S Done As Ordered; Casts Negative LPF (Negative)
== END 2019-05-08 11:15 ==
LOC: LBN 10:55
PROVIDERS: PCP Family Medicine; Visit Provider Family Medicine
DX: R30.0 Dysuria (principal); R32 Unspecified urinary incontinence; N39.0 Urinary tract infection, site not specified
CPT/HCPCS: 81003; 81015; 87086

== ENCOUNTER 2019-05-10 19:32 | Outpatient (REF) | payer MEDICARE, MEDICAID, SELFPAY ==
[2019-05-10 16:58] LABS: Bilirubin Negative (Negative); Blood Negative (Negative); Clarity Clear (Clear); Glucose Negative (Negative); Ketones Negative (Negative); Leukocyte Esterase Moderate (Negative); Nitrite Negative (Negative); Specific Gravity 1.015 (1.005-1.025); Urobilinogen 0.2 EU/dL (Up TO 0.2); pH 6.5 (5-8)
[2019-05-10 17:13] LABS: Bacteria Moderate HPF (Negative); C & S Indicated? Yes; Casts Negative LPF (Negative); Crystals Moderate Amorphous HPF (Negative); Epithelial Cells Few HPF (Negative); Mucus Negative (Negative); RBC Negative HPF (0-2); WBC >50 HPF (0-5)
== END 2019-05-10 19:52 ==
LOC: LBN 19:32
PROVIDERS: PCP Family Medicine; Visit Provider Nurse Practitioner Adult Health
DX: N39.0 Urinary tract infection, site not specified (principal)
CPT/HCPCS: 81003; 81015; 87086

== ENCOUNTER 2019-06-23 10:40 | Outpatient (REF) | payer MEDICARE, MEDICAID, SELFPAY ==
[2019-06-23 14:35] LABS: Bilirubin Negative (Negative); Blood Large (Negative); Glucose Negative (Negative); Ketones Negative (Negative); Leukocyte Esterase Large (Negative); Nitrite Positive (Negative); Specific Gravity 1.025 (1.005-1.025); Urobilinogen 0.2 EU/dL (Up TO 0.2)
[2019-06-23 14:38] LABS: Clarity Cloudy (Clear)
[2019-06-23 14:49] LABS: C & S Indicated? C&S Done As Ordered; RBC >50 HPF (0-2); WBC >50 HPF (0-5)
== END 2019-06-23 11:00 ==
LOC: LBN 10:40
PROVIDERS: PCP Family Medicine; Visit Provider Family Medicine
DX: N39.0 Urinary tract infection, site not specified (principal)
CPT/HCPCS: 87077; 81003; 81015; 87086; 87186

== ENCOUNTER 2019-07-08 12:18 | Outpatient (CLI) | payer MEDICARE, MEDICAID, SELFPAY ==
--- NOTE | 2019-07-08 15:06 | DI.CT_ITS ---
EXAM: CT ABDOMEN AND PELVIS W CLINICAL HISTORY: LLQ PAIN TECHNIQUE: CT examination of the abdomen and pelvis was performed with bolus infusion of 100 cc of O mnipaque 350 and ingestion of dilute barium. COMPARISON: ABD PELVIS WITH CONTRAST from 12/27/2017 FINDINGS: Images obtained through the lung bases show marked decreased prominence of radiodensities at the righ t lung base noted on prior CT of 12/27/2017, no suspicious lesion identified at this time. Note is m janie of end-stage degenerative change and subluxation associated with the right. There is moderate le ft convex lumbar scoliosis. There is moderate gastric distention. There is marked fecal distention of the colon consistent with constipation. There is wall thickening of the rectum and distal sigmoid , raising the possibility of a stercoral proctitis. There is wall thickening of the urinary bladder, question cystitis. There is a cystic lesion of the pelvis on the left measuring about 4.3 cm in tata meter, which was not present on prior study of December 2017. There also appears to be a small quantity of free fluid in the pelvis Abdominal aorta is of normal diameter and no major vascular abnormality is seen. Liver and spleen appear normal. Pancreas appears intact. Gallbladder and bile ducts are CT normal. Adrenals and kidneys are unremarkable, no urinary tract calcification or obstruction. No gross abdo reinier or pelvic adenopathy. IMPRESSION: 1. Findings consistent with constipation/obstipation and stercoral proctitis. 2. New cystic lesion of the left adnexa, in this age group the findings would be worrisome for ovaria n carcinoma. Correlation with pelvic ultrasound recommended.
== END 2019-07-08 12:38 ==
PROVIDERS: PCP Family Medicine; Visit Provider Nurse Practitioner Adult Health
DX: R10.32 Left lower quadrant pain (principal); K59.00 Constipation, unspecified; N83.8 Other noninflammatory disorders of ovary, fallopian tube and broad ligament; K62.89 Other specified diseases of anus and rectum
CPT/HCPCS: 74177

== ENCOUNTER 2019-07-12 10:34 | Outpatient (CLI) | payer MEDICARE, MEDICAID, SELFPAY ==
[2019-07-12 12:04] LABS: BUN 11 mg/dL (7-18); CREATININE 0.54 mg/dL (0.55-1.02); Chloride 106 mmol/L (98-107); Glucose 72 mg/dL (74-106); Sodium 142 mmol/L (136-145)
[2019-07-12 12:06] LABS: Abs Immature Grans 0.01 k/cumm (0.0-0.09); Absolute Basophil Count 0.04 k/cumm (0.0-0.2); Absolute Lymphocyte Count 0.85 k/cumm (1.2-3.4); Absolute Monocyte Count 0.23 k/cumm (0.11-0.7); Absolute Neutrophil Count 2.33 k/cumm (1.2-6.7); Basophils % 1.1; Eosinophils % 5.5; HCT 40.4 % (36.0-46.0); HGB 12.9 g/dL (12.0-15.5); Immature Grans % 0.3 %; Lymphocytes % 23.2; Mean Corp. HGB Concentration 31.9 g/dL (32.0-36.0); Mean Corpuscular Hemoglobin 30.1 pg (27.0-33.0); Mean Corpuscular Volume 94.4 fL (80-95); Mean Platelet Volume 11.6 fL (8.0-11.0); Monocytes % 6.3; Neutrophils % 63.6; Platelet Count 176 x1000/uL (130-400); RBC 4.28 m/cumm (4.00-5.20); RBC Distribution Width 15.4 % (11.7-14.6); White Blood Cell Count 3.66 k/cumm (4.4-10.8)
== END 2019-07-12 10:54 ==
PROVIDERS: PCP Family Medicine; Visit Provider Nurse Practitioner Adult Health
DX: D62 Acute posthemorrhagic anemia (principal); E11.9 Type 2 diabetes mellitus without complications
CPT/HCPCS: 80048; 85025

== ENCOUNTER 2019-07-19 00:38 | Outpatient (CLI) | payer MEDICARE, MEDICAID, SELFPAY ==
--- NOTE | 2019-07-19 13:07 | DI.US_ITS ---
EXAM: US PELVIS CLINICAL HISTORY: F/U MASS ON CT, ? LT OVARIAN CYST TECHNIQUE: Ultrasound performed using standard protocol. A transabdominal exam was performed. COMPARISON: CT ABDOMEN PELVIS W from 07/08/2019 FINDINGS: The patient is status post hysterectomy. The right ovary is normal in size and appearance. The left ovary shows a 3.4 centimeter in maximal dimension simple cyst. There is no evidence of torsion. Th ere is no free fluid. IMPRESSION: 3.4 centimeter simple cyst of the left ovary.
== END 2019-07-19 00:58 ==
PROVIDERS: PCP Family Medicine; Visit Provider Nurse Practitioner Adult Health
DX: N83.292 Other ovarian cyst, left side (principal); N31.9 Neuromuscular dysfunction of bladder, unspecified
CPT/HCPCS: 99213; 76856

== ENCOUNTER → 2019-08-17 10:14 | Outpatient (BNVA) | payer MEDICARE, MEDICAID, SELFPAY | PROVIDERS: PCP Family Medicine; Visit Provider Psychiatry & Neurology Neurology | DX: G35 Multiple sclerosis (principal); G82.20 Paraplegia, unspecified; R25.2 Cramp and spasm; E11.40 Type 2 diabetes mellitus with diabetic neuropathy, unspecified | CPT/HCPCS: 99213 ==

== ENCOUNTER 2019-10-20 13:51 | Outpatient (REF) | payer MEDICARE, MEDICAID, SELFPAY ==
[2019-10-20 14:29] LABS: Hemoglobin A1C 5.3 % (3.8-5.6)
== END 2019-10-20 14:11 ==
LOC: LBN 13:51
PROVIDERS: PCP Family Medicine; Visit Provider Nurse Practitioner Adult Health
DX: E11.9 Type 2 diabetes mellitus without complications (principal)
CPT/HCPCS: 83036

== ENCOUNTER 2019-11-07 14:30 | Outpatient (REF) | payer MEDICARE, MEDICAID, SELFPAY ==
[2019-11-07 12:12] LABS: Bilirubin Negative (Negative); Blood Small (Negative); Clarity Cloudy (Clear); Glucose Negative (Negative); Ketones Negative (Negative); Leukocyte Esterase Small (Negative); Nitrite Positive (Negative); Specific Gravity 1.025 (1.005-1.025); Urobilinogen 0.2 EU/dL (Up TO 0.2)
[2019-11-07 12:25] LABS: WBC >50 HPF (0-5)
[2019-11-07 12:26] LABS: Bacteria Many HPF (Negative); C & S Indicated? C&S Done As Ordered
== END 2019-11-07 14:50 ==
LOC: LBN 14:30
PROVIDERS: PCP Family Medicine; Visit Provider Nurse Practitioner Adult Health
DX: R82.90 Unspecified abnormal findings in urine (principal)
CPT/HCPCS: 87077; 81003; 81015; 87086; 87186

== ENCOUNTER 2019-11-13 11:30 | Outpatient (REF) | payer MEDICARE, MEDICAID, SELFPAY ==
[2019-11-14 18:58] LABS: COVID-19 RT-PCR Result Not Detected ((See Note))
== END 2019-11-13 11:50 ==
LOC: LBN 11:30
PROVIDERS: PCP Family Medicine; Visit Provider Family Medicine
DX: R11.2 Nausea with vomiting, unspecified (principal)
CPT/HCPCS: U0003

== ENCOUNTER 2019-11-24 17:24 | Outpatient (REF) | payer MEDICARE, MEDICAID, SELFPAY ==
[2019-11-25 17:58] LABS: COVID-19 RT-PCR Result Not Detected ((See Note))
== END 2019-11-24 17:44 ==
LOC: LBN 17:24
PROVIDERS: PCP Family Medicine; Visit Provider Nurse Practitioner Adult Health
DX: Z03.818 Encounter for observation for suspected exposure to other biological agents ruled out (principal)
CPT/HCPCS: U0003

== ENCOUNTER 2019-11-29 21:33 | Outpatient (REF) | payer MEDICARE, MEDICAID, SELFPAY ==
[2019-11-30 02:07] LABS: COVID-19 RT-PCR UVMMC Result Negative (Negative)
== END 2019-11-29 21:53 ==
LOC: NCHCN 21:33
PROVIDERS: PCP Family Medicine; Visit Provider Nurse Practitioner Adult Health
DX: Z03.818 Encounter for observation for suspected exposure to other biological agents ruled out (principal)
CPT/HCPCS: U0003

== ENCOUNTER 2019-12-29 23:06 | Outpatient (REF) | payer MEDICARE, MEDICAID, SELFPAY ==
[2019-12-29 23:17] LABS: Bilirubin Negative (Negative); Blood Moderate (Negative); Clarity Sl Cloudy (Clear); Glucose Negative (Negative); Ketones Negative (Negative); Leukocyte Esterase Small (Negative); Nitrite Negative (Negative); Specific Gravity >= 1.030 (1.005-1.025); Urobilinogen 0.2 EU/dL (Up TO 0.2); pH 5.5 (5-8)
[2019-12-29 23:21] LABS: C & S Indicated? Yes; WBC >50 HPF (0-5)
== END 2019-12-29 23:26 ==
LOC: LBN 23:06
PROVIDERS: PCP Family Medicine; Visit Provider Nurse Practitioner Adult Health
DX: R30.9 Painful micturition, unspecified (principal)
CPT/HCPCS: 81003; 81015; 87086

== ENCOUNTER → 2020-02-15 08:26 | Outpatient (BNVA) | payer MEDICARE, MEDICAID, SELFPAY | PROVIDERS: PCP Family Medicine; Referring Provider Family Medicine; Visit Provider Psychiatry & Neurology Neurology | DX: R69 Illness, unspecified (principal) ==

== ENCOUNTER → 2020-04-24 12:19 | Outpatient (BNVA) | payer MEDICARE, MEDICAID, SELFPAY | PROVIDERS: PCP Family Medicine; Referring Provider Family Medicine; Visit Provider Psychiatry & Neurology Neurology | DX: G35 Multiple sclerosis (principal); G82.20 Paraplegia, unspecified; E11.40 Type 2 diabetes mellitus with diabetic neuropathy, unspecified; R25.2 Cramp and spasm | CPT/HCPCS: 99213; 99442 ==

== ENCOUNTER 2020-05-05 18:17 | Outpatient (REF) | payer MEDICARE, MEDICAID, SELFPAY ==
[2020-05-08 14:17] LABS: COVID-19 RT-PCR Result NEGATIVE (Negative)
== END 2020-05-05 18:37 ==
LOC: LBN 18:17
PROVIDERS: PCP Family Medicine; Visit Provider Nurse Practitioner Adult Health
DX: Z11.59 Encounter for screening for other viral diseases (principal)
CPT/HCPCS: U0003

== ENCOUNTER 2020-05-06 16:38 | Emergency (ER) | payer MEDICARE, MEDICAID, SELFPAY ==
[2020-05-06] VITALS (75 sets, daily range): BP systolic 83–118; BP diastolic 43–69; PULSE 67–108; RESP 10–27; TEMP 36.4–38.3; O2SAT 91–100
--- NOTE | 2020-05-06 17:00 | RT.EKG_ITS ---
APPROVED REPORT Exam: Resting ECG Patient Location: E HR:106 bpm ECG Measurements Heart Rate 106 AXIS NH 139 P 62 QRSd 67 QRS 34 QT 324 T 19 QTc 431 Conclusion Sinus tachycardia, rate 106, no st elevation9
--- NOTE | 2020-05-06 17:00 | DI.CT_ITS ---
EXAM: CT HEAD NECK W CLINICAL HISTORY: Hx of tongue CA, swelling, fever TECHNIQUE: FINDINGS: Brain CT with IV contrast: There is no evidence of intracranial hemorrhage, intra or extra-axial. There are no ring enhancing l esions in the brain and there is no abnormal meningeal enhancement, focal or diffuse.. There is sign ificant bilateral periventricular hypodensity which is significantly more than expected at this age g roup. There is also an area of abnormal hypodensity in the left temporal lobe adjacent to the right of the left lateral ventricle. There is no enhancement at this level. Neck CT scan with IV contrast: The tissues of the nasopharynx are symmetrical. The uvula is midline. Asymmetry in the appearance o f the tongue is unchanged with postsurgical changes at this location in the floor of the mouth possib ly related to right-sided tongue resection with fat density now evident at this level. There is no a bnormal fluid collection in this region nor elsewhere in the oral cavity. The parotid glands appear unremarkable submandibular glands not evident.. Nor evidence of mass nor f luid collection in this region. Retropharyngeal space appears unremarkable. The valleculae are michael r. The free edge of the epiglottis appears unremarkable as do the aryepiglottic folds and there is n o evidence of obvious mass at the vocal cords and subglottic airway. Thyroid gland appears unremarka ble. There is no obvious lymphadenopathy on either side of the neck nor in the supraclavicular region. IMPRESSION: Abundant bilateral periventricular hypodensity which is significantly more than expected in this age group. Also abnormal area of asymmetric hypodensity in the white matter adjacent to the atrium of le ft lateral ventricle. There is no abnormal enhancement in these regions or elsewhere in the brain. There is no abnormal meningeal enhancement. Evidence of previous surgery in the floor of the mouth with no abnormal fluid collection or significa nt mass evident at this level. Absence-possible surgical resection of the submandibular glands. No lymphadenopathy in either side of the neck nor in the supraclavicular regions.
--- NOTE | 2020-05-06 17:20 | ED.GENADUL_ITS ---
Discharge Plan Disposition Patient Disposition: [facility] Condition: Serious Discharge Details Clinical Impression: Fever, Localized swelling, mass and lump, neck Primary Care Provider: Steve Dudley ED Provider: Amanda Desai Home Meds and New Rx's Prescriptions: No Action docusate sodium [Dulcolax Stool Softener (dss)] 100 mg capsule 100 mg PO DAILY RF: 0 cranberry extract 500 mg capsule 500 mg PO BID RF: 0 pregabalin [Lyrica] 100 mg capsule 100 mg PO BID Qty: 1 RF: 0 Adult Probiotic 3 billion cell capsule 3,000 mmu cells PO DAILY RF: 0 sennosides [Senna Lax] 8.6 mg tablet 17.2 mg PO QHS RF: 0 baclofen 20 MG tablet 30 mg PO TID RF: 0 magnesium hydroxide [Milk of Magnesia] 400 MG/5 ML suspension 30 ml PO PRN RF: 0 miconazole nitrate 2 % Powder 1 appful topical PRN PRNRF: 0 apixaban 2.5 mg Tablet 2.5 mg PO BID RF: 0 acetaminophen [Tylenol] 325 MG tablet 650 mg PO Q6H PRN PRNRF: 0 bisacodyl 10 MG suppository 10 mg SD DAILY PRN PRN (Reason: Constipation) RF: 0 clonazepam [Klonopin] 1 MG tablet 1 mg PO QPM RF: 0 ondansetron HCl 4 MG tablet 1 tab PO Q8H PRN (Reason: Nausea) RF: 0 vitamin B complex Tablet 1 tab PO DAILY RF: 0 cholecalciferol (vitamin D3) [Vitamin D3] 400 unit Capsule 800 unit PO DAILY RF: 0 clindamycin HCl 300 mg capsule 300 mg PO TID RF: 0 escitalopram oxalate 10 mg tablet 10 mg PO DAILY RF: 0 Medical Decision Making 39-year-old female [facility] neck swelling and fever. She is s/p radiation and tongue resection for a tongue mass and tongue cancer. She began with right sided neck swelling yeterday and a fever that began today with started on clindamycin x 1 day, swelling has been consistent. Temperature prior to arrival per EMS was 103.7. She is complaining of myalgias. She is able to speak in full sentences. History of tongue excised and possibly 1 year ago. She does not have an erythemic posterior oropharynx uvula is midline. There is some submandibular swelling on the right side which is tender to the touch. She reports having Tylenol or ibuprofen approximately 1 hour prior to arrival. She has additional history of type 2 diabetes mellitus, multiple sclerosis, neurogenic bladder, DVT, depression and headache., hemochromatosis. 1845: Informed by hospital staff pharmacist blood pressure is in the 90 systolic will order 1 more liter of normal saline. Patient is currently in diagnostic imaging. FINDINGS: Brain: Mild cerebral cortical sulcal prominence for age. Mild white matter hypoattenuation. No edema or suspicious enhancement. Cerebral ventricles: Unremarkable. No ventriculomegaly. Bones/joints: Unremarkable. No acute fracture. Paranasal sinuses: No acute sinusitis. Mastoid air cells: Visualized mastoid air cells are well aerated. Soft tissues: Unremarkable. IMPRESSION: No acute intracranial findings. COMPARISON: CT Neck^NECK_ST_W_ROUTINE (Adult) 02/12/2018 13:26 FINDINGS: Nasopharynx: Unremarkable. Oropharynx: Postsurgical changes are present in the tongue and floor of the mouth, question a right sided tongue resection. Correlation with the surgical history will be helpful. No focal fluid collections in this region. Hypopharynx: Unremarkable. Larynx: Normal epiglottis. Retropharyngeal space: Unremarkable. Submandibular/Parotid glands: Extensive surgical clips predominantly in the right submandibular region. Minor edema with no focal collections. Edema also present in the left submandibular region. Submandibular glands are not well identified. Question a minor edema versus ra diation fibrosis. If the submandibular glands have been resected these areas could represent scarring although PET-CT would probably be a better assessment of the soft tissues in this region in that situation. No significant ductal dilation. No collections. The parotid glands appear fatty replaced with no suspicious lesions or edema. Thyroid: No enlarged or calcified nodules. Lymph nodes: No lymphadenopathy. Trachea: Visualized trachea is unremarkable. Lungs: Mild dependent subsegmental atelectasis. Minimal pleural fluid difficult to exclude. Bones/joints: Degenerative changes in the cervical spine. No acute fracture or subluxation. Soft tissues: No suspicious collections or lesions. IMPRESSION: 1. Postsurgical changes in the floor of the mouth with expected appearance. 2. Edema in the region of the submandibular glands right greater than left. Details as described above. Unclear if this represents expected postsurgical finding in the setting of resection and or radiation, versus a mild edema. No ductal dilation. No collections. 3. Mild dependent subsegmental atelectasis. Minimal pleural fluid difficult to exclude. 1935: Blood pressure is now at 86/45, 90/47 heart rate is 84. Patient is receiving her second liter of normal saline wide open. CT results are noted above. Urinalysis added on and chest x-ray to determine source of fever. At this time patient is meeting SIRS criteria not septic criteria I will consult [facility] for possible transfer and admission. 1946: Spoke with [facility] transfer center for possible transfer. 2042: Spoke with Dr. Martinez who sees her at [facility] and informed of CT results and plan to transfer to [facility]. Verbalized understanding, 3rd liter NS ordered. BP 90/53,88/50 patient arouses to vigourous verbal stimuli. Unknown source of fever however I am under strong suspicion that this is the acute swelling in her submandibular region., Hypotension. Sepsis. 2152: Reached out once again to [facility] transfer center they state that they have been super busy and will get back to me. Patient depends was changed I assisted the RN she does have a small decub noted to her left hip approximately 2 cm in diameter, there is no surrounding erythema or tenderness with palpation. She denies any headache, she is complaining of being sleepy having myalgias. At this time patient has continued to be afebrile, normal sinus rhythm. She does continue to have a soft blood pressure, at this time no vasopressors are ordered however I am strongly considering we will continue to monitor patient's mental status. 2224: Blood pressure is 85/47 map of 57, heart rate 64, she is received 3 L normal saline additional normal saline 150 an hour ordered. Instructed hospital staff pharmacist to recheck a temperature either orally or rectally, obtain a manual blood pressure. Discussing with the ER attending to consider vasopressors at this time. Patient continues to mentate well repeat lactate ordered. 2315: Repeat lactate 0.8, oral temperature 97.8 Per hospital staff pharmacist, patient is continuing to mentate well, manual blood pressure is 90 systolic blood pressure by palp, blood pressure at this time is 89/57 with a MAP of 64 heart rate 73. She is satting 99% on room air. 8: Additional call made to [facility] by unit manager, They are aware and page is out to hospitalist, they will call back. At this time, this I believe is the most appropriate facility for patient to be transferred to, Due to ENT, oncology and patient has received her ENT care there in past. 2357: Spoke with Dr. Kelsey [facility] hospitalist who requests consult with critical care team, otherwise he will accept patient for step-down status. He requests the rapid Covid test, which was ordered. 0044: Spoke with Dr. Rush with [facility] critical care team who is requesting a ED to ED transfer ED MD Nicolas, on phone he agrees to accept patient accepting physician is Dr. Nicolas. Transport called they will be her approximately 15 minutes at the time of this dictation blood pressure patient is 107/67 a map of 76 heart rate is 99 O2 sat is 97% on room air respirations 25. Rapid Covid test was ordered and is pending at this time. HPI General Mode of arrival: EMS . Date/Time Provider Initiated Documentation: 05/06/20 16:41 . Limitations to Documentation: no limitations . Information obtained by: patient and EMS . HPI Narrative: 39-year-old female presents to the ER from [facility] for neck swelling and fever. She is s/p radiateion and tongue resection for a tongue mass and tongue cancer. She began with a fever that began today with started on clindamycin swelling has been consistent. Neck swelling began yesterday. Temperature prior to arrival per EMS was 103.7. She is complaining of myalgias. She is able to speak in full sentences. History of tongue excised and possibly 1 year ago. She does not have an erythemic posterior oropharynx uvula is midline. There is some submandibular swelling on the right side. She reports having Tylenol or ibuprofen approximately 1 hour prior to arrival. She has additional history of type 2 diabetes mellitus, multiple sclerosis, neurogenic bladder, DVT, depression and headache., hemochromatosis. Related Data Home Medications Medication Instructions Recorded Confirmed baclofen 30 mg PO TID tab-cap 04/20/17 05/06/20 magnesium hydroxide [Milk of 30 ml PO PRN ml 04/20/17 05/06/20 Magnesia] acetaminophen [Tylenol] 650 mg PO Q6H PRN PRN 11/23/17 05/06/20 bisacodyl 10 mg SD DAILY PRN PRN 11/23/17 05/06/20 clonazepam [Klonopin] 1 mg PO QPM 11/23/17 05/06/20 ondansetron HCl 1 tab PO Q8H PRN 11/23/17 05/06/20 apixaban 2.5 mg PO BID 07/18/18 05/06/20 miconazole nitrate 1 appful TOPICAL PRN PRN 07/18/18 05/06/20 cholecalciferol (vitamin D3) 800 unit PO DAILY 09/14/18 05/06/20 [Vitamin D3] vitamin B complex 1 tab PO DAILY 09/14/18 05/06/20 cranberry extract 500 mg capsule 500 mg PO BID 02/16/19 05/06/20 docusate sodium 100 mg capsule 100 mg PO DAILY 02/16/19 05/06/20 lactobacillus combination no.8 3 3,000 mmu cells PO DAILY 07/19/19 05/06/20 billion cell capsule sennosides 8.6 mg tablet 17.2 mg PO QHS tab 07/19/19 05/06/20 pregabalin 100 mg capsule 100 mg PO BID #1 cap 08/17/19 05/06/20 clindamycin HCl 300 mg PO TID 05/06/20 05/06/20 escitalopram oxalate 10 mg PO DAILY 05/06/20 05/06/20 Previous Rx's Medication Instructions Recorded pregabalin 100 mg capsule 100 mg PO BID #1 cap 08/17/19 Allergies Allergy/AdvReac Type Severity Reaction Status Date / Time amoxicillin Allergy Severe Hives Unverified 05/06/20 17:13 venom-honey bee Allergy Severe Anaphylaxsi Unverified 05/06/20 17:13 s azithromycin [From Zithromax] Allergy Intermediate hives Verified 05/06/20 17:13 ciprofloxacin Allergy Intermediate Hives Verified 05/06/20 17:13 cod liver oil Allergy Intermediate Verified 05/06/20 17:13 Gadolinium-Containing Allergy Intermediate Hives Unverified 05/06/20 17:13 Contrast Medi lactose Allergy Mild Verified 05/06/20 17:13 cortisone Allergy Unverified 05/06/20 17:13 interferon beta-1b Allergy Unverified 05/06/20 17:13 [From Betaseron] methylprednisolone Allergy Unverified 05/06/20 17:13 [From Solu-Medrol] red dye Allergy Unverified 05/06/20 17:13 metformin AdvReac Intermediate RASH, Unverified 05/06/20 17:13 DIARRHEA gabapentin AdvReac Mild LE edema Unverified 05/06/20 17:13 General Stated Complaint: Fever BRENDAN: 2 Review of Systems Narrative: Constitutional: Appears chronically ill. Positive fever and myalgias. HEENT: positive tongue cancer currently undergoing radiation, right-sided neck swelling. Chest: Denies chest pain, palpitations, irregular rhythm, hypertension. Respiratory: Denies Shortness of breath, cough, hemoptysis. GI: Denies abdominal pain, nausea, vomiting, diarrhea, constipation. : Denies dysuria, hematuria, flank pain, rectal bleeding. Neuro: Denies dizziness, blurry vision, weakness, syncope, or facial numbness. Hematologic: Denies easy bruising, intolerance to heat or cold, hair loss. [facility] Medical History (Updated 05/07/20 @ 00:06 by Amanda Desai) Breakthrough bleeding on Depo-Provera onset 08/2017. Pt uses adult diapers for incontinence. No clots. 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 History of tracheostomy This was temporary after aspiration when the patient was younger as a complication of her MS S/P percutaneous endoscopic gastrostomy (PEG) tube placement This is now not present have been removed patient able to swallow Family History Mother Multiple sclerosis Social History Smoking/Tobacco Use Status: Never Smoking risk assessment performed?: Yes Alcohol Intake: never Substance use type: does not use Caregiver/Support person: Yes (inpt at [facility] [employer] ) Details: bedbound Housing: skilled nursing Number of Children: 2 Communication Needs: None current occupation: disabled Sexually active: No Do you feel safe at home: Yes Do you feel safe in your relationship?: Yes Additional Social history: In process of . History History 2 Para Hx # Term Pregnancies 2 Multiple births Hx # Pregnancies Ectopic pregnancies AB induced Hx Number of Living Children AB spontaneous Exam Narrative Exam Narrative: Constitutional: Alert and oriented x3. Appears older than stated age. thin, contractured body. Head: Normocephalic, no trauma. Eyes: Pupils PERRLA, Red reflex noted, EOM's intact. Eyelids symmetrical without lesions, discharge, or swelling. ENT: Bilateral TM's WNL, External ear normal to inspection, posterior oropharynx is erythemic. There is white lesions noted on the tongue, uvula is midline, there is no tonsillar swelling noted on initial exam airway is patent anteriorly. She does have some submandibular swelling on the right posterior neck. Chest: Tachycardic, normal S1, S2, distal pulses intact. Resp: Lungs clear to auscultation bilaterally, no wheezes, rales, or rhonchi. No stridor. Musculoskeletal: Contractures noted. Skin: Small decub noted to left hip with an overlying bandage, no surrounding tenderness or erythema noted. Some small purulent drainage noted. Capillary refill less than 2 sec. Neurologic: Cranial nerves II-XII intact. Alert and oriented x 3. Hematologic/Lymphatic: No ecchymosis, no lymphadenopathy. Course Vital Signs Vital signs: Vital Signs Temperature 38.3 C H 05/06/20 17:00 Pulse 108 H 05/06/20 17:00 Respiratory Rate 27 H 05/06/20 17:00 Blood Pressure 118/69 05/06/20 17:00 Pulse Oximetry 95 05/06/20 17:00 Temperature 38.3 C H 05/06/20 17:00 Temperature Source Skin 05/06/20 17:00 Pulse 108 H 05/06/20 17:00 Respiratory Rate 27 H 05/06/20 17:00 Respiratory Effort Non-Labored 05/06/20 17:00 Blood Pressure 118/69 05/06/20 17:00 Blood Pressure Position Sitting 05/06/20 17:00 Pulse Oximetry 95 05/06/20 17:00 Oxygen Delivery Method Room Air 05/06/20 17:00 Oxygen Flow Rate 0 05/06/20 17:00 Pain Level 7 05/06/20 17:00 Comment 05/06/20 17:00 Lab/Test Results Lab/Test Results: 05/06/20 17:01 Blood Blood Culture - Pending 05/06/20 17:01 Blood Blood Culture - Pending
[2020-05-06] MEDS: Normal Saline 1,000 ML 1000 ML IV ×3 (17:35→20:44)
[2020-05-06 17:39] LABS: Lactate 0.8 mmol/L (0.6-1.4)
[2020-05-06 17:42] LABS: Abs Immature Grans 0.01 10^3/uL (0.0-0.06); Absolute Basophil Count 0.02 10^3/uL (0.0-0.2); Absolute Eosinophil Count 0.02 10^3/uL (0.0-0.7); Absolute Lymphocyte Count 0.45 10^3/uL (1.2-3.4); Absolute Monocyte Count 0.39 10^3/uL (0.1-0.8); Absolute Neutrophil Count 5.25 10^3/uL (1.2-6.7); Basophils % 0.3; Eosinophils % 0.3; HCT 38.5 % (36.0-46.0); HGB 12.5 g/dL (11.2-15.7); Immature Grans % 0.2; Lymphocytes % 7.3; MCH 30.7 pg (27.0-33.0); MCHC 32.5 % (32.0-36.0); MCV 94.6 fL (80-95); MPV 10.7 fL (8.0-11.0); Monocytes % 6.4; Neutrophils % 85.5; Nucleated RBC 0 %; Platelet Count 173 10^3/uL (130-400); RBC 4.07 10^6/uL (3.93-5.22); RDW 14.8 % (11.7-14.6); RDW-SD 51.8 fL; WBC 6.14 10^3/uL (4.4-10.8)
[2020-05-06] MEDS: ACETAMINOPHEN 1,000 MG/100 ML BTL 400 MG IVPB (17:45)
[2020-05-06 17:54] LABS: ALT 27 U/L (14-59); AST 31 U/L (15-37); Alkaline Phosphatase 125 U/L (46-116); Anion Gap 7.6 mmol/L (3-11); BUN 11 mg/dL (7-18); Bilirubin, Total 0.6 mg/dL (0.2-1.0); CO2 28.4 mmol/L (21.0-32.0); CREATININE 0.76 mg/dL (0.55-1.02); Calcium 8.6 mg/dL (8.5-10.1); Chloride 98 mmol/L (98-107); Glucose 110 mg/dL (74-106); Potassium 3.5 mmol/L (3.5-5.1); Sodium 134 mmol/L (136-145); Total Protein 8.1 g/dL (6.4-8.2)
[2020-05-06] MEDS: Omnipaque 350 MG/ML 100 ML BTL IJ (18:58)
[2020-05-06] MEDS: Normal Saline - Diluent 50 ML VIAL IV (19:00)
--- NOTE | 2020-05-06 19:11 | DI.VRAD_ITS ---
PROCEDURE INFORMATION: Exam: CT Head With Contrast Exam date and time: 05/06/2020 17:04 Age: 39 years old Clinical indication: Other: HX of tongue CA, swelling, fever TECHNIQUE: Imaging protocol: Computed tomography of the head with intravenous contrast. Contrast material: OMNIPAQUE 350; Contrast volume: 98 ml; Contrast route: INTRAVENOUS (IV); COMPARISON: CT Neck^NECK ST W ROUTINE (Adult) 02/12/2018 13:26 FINDINGS: Brain: Mild cerebral cortical sulcal prominence for age. Mild white matter hypoattenuation. No edema or suspicious enhancement. Cerebral ventricles: Unremarkable. No ventriculomegaly. Bones/joints: Unremarkable. No acute fracture. Paranasal sinuses: No acute sinusitis. Mastoid air cells: Visualized mastoid air cells are well aerated. Soft tissues: Unremarkable. IMPRESSION: No acute intracranial findings. PROCEDURE INFORMATION: Exam: CT Neck With Contrast Exam date and time: 05/06/2020 17:04 Age: 39 years old Clinical indication: Other: HX of tongue CA, swelling, fever TECHNIQUE: Imaging protocol: Computed tomography images of the neck with intravenous contrast. Contrast material: OMNIPAQUE 350; Contrast volume: 98 ml; Contrast route: INTRAVENOUS (IV); COMPARISON: CT Neck^NECK ST W ROUTINE (Adult) 02/12/2018 13:26 FINDINGS: Nasopharynx: Unremarkable. Oropharynx: Postsurgical changes are present in the tongue and floor of the mouth, question a right sided tongue resection. Correlation with the surgical history will be helpful. No focal fluid collections in this region. Hypopharynx: Unremarkable. Larynx: Normal epiglottis. Retropharyngeal space: Unremarkable. Submandibular/Parotid glands: Extensive surgical clips predominantly in the right submandibular region. Minor edema with no focal collections. Edema also present in the left submandibular region. Submandibular glands are not well identified. Question a minor edema versus radiation fibrosis. If the submandibular glands have been resected these areas could represent scarring although PET-CT would probably be a better assessment of the soft tissues in this region in that situation. No significant ductal dilation. No collections. The parotid glands appear fatty replaced with no suspicious lesions or edema. Thyroid: No enlarged or calcified nodules. Lymph nodes: No lymphadenopathy. Trachea: Visualized trachea is unremarkable. Lungs: Mild dependent subsegmental atelectasis. Minimal pleural fluid difficult to exclude. Bones/joints: Degenerative changes in the cervical spine. No acute fracture or subluxation. Soft tissues: No suspicious collections or lesions. IMPRESSION: 1. Postsurgical changes in the floor of the mouth with expected appearance. 2. Edema in the region of the submandibular glands right greater than left. Details as described above. Unclear if this represents expected postsurgical finding in the setting of resection and or radiation, versus a mild edema. No ductal dilation. No collections. 3. Mild dependent subsegmental atelectasis. Minimal pleural fluid difficult to exclude. Dictated and Authenticated by: Demetra Chapa MD. Ordering:MIKO Patel MD
[2020-05-06] MEDS: metroNIDAZOLE 500 MG/100 ML BAG 100 MG IVPB (19:26)
[2020-05-06] MEDS: CEFEPIME 2 GM in Normal Saline 100 ML IVPB (19:26)
[2020-05-06 19:55] LABS: Bilirubin Negative (Negative); Blood Moderate (Negative); Clarity Cloudy (Clear); Glucose Negative (Negative); Ketones 40 mg/dL (Negative); Leukocyte Esterase Small (Negative); Nitrite Negative (Negative); Urobilinogen 0.2 EU/dL (Up TO 0.2)
--- NOTE | 2020-05-06 19:57 | DI.RAD_ITS ---
EXAM: XR PORTABLE CHEST AP CLINICAL HISTORY: Fever. TECHNIQUE: 2D digital imaging was performed. COMPARISON: CR XR PORTABLE CHEST AP from 09/15/2018 FINDINGS: Chest leads in place. Heart size normal. Mediastinum is not widened. No confluent infiltrates nor pleural effusions. No pulmonary edema. Surgical clips seen in the right side of neck which are pos sibly from prior endarterectomy. IMPRESSION: No acute pulmonary findings on this single AP portable view of the chest. DATA REPOSITORY: RADIATION DOSE DELIVERED:
[2020-05-06 20:03] LABS: C & S Indicated? Yes; WBC >50 HPF (0-5)
--- NOTE | 2020-05-06 20:06 | DI.VRAD_ITS ---
PROCEDURE INFORMATION: Exam: XR Chest, 1 View Exam date and time: 05/06/2020 19:52 Age: 39 years old Clinical indication: Fever TECHNIQUE: Imaging protocol: XR of the chest Views: 1 view. COMPARISON: CR XR PORTABLE CHEST AP 09/15/2018 10:34 FINDINGS: Tubes, catheters and devices: Surgical clips projecting over the right neck base. Lungs: No consolidation. Pleural space: No significant pleural effusion. No pneumothorax. Heart/Mediastinum: No cardiomegaly. Bones/joints: No acute fracture. Organs: Contrast is being excreted into the renal collecting systems. IMPRESSION: Negative portable chest. Dictated and Authenticated by: Demetra Chapa MD. Ordering:MIKO Patel MD
[2020-05-06] MEDS: CLINDAMYCIN 600 MG/50 ML BAG 100 MG IVPB (21:40)
[2020-05-06 22:48] LABS: Lactate 0.8 mmol/L (0.6-1.4)
[2020-05-07] VITALS (17 sets, daily range): BP systolic 86–112; BP diastolic 51–72; PULSE 69–105; RESP 11–27; TEMP 36.6; O2SAT 96–99
[2020-05-07 00:36] LABS: Source Nasopharynx
[2020-05-07 01:19] LABS: COVID-19 PCR Negative (Negative)
[2020-05-07 01:20] LABS: Influenza A PCR Negative (Negative); Influenza B PCR Negative (Negative); RSV PCR Negative (Negative)
== END 2020-05-07 00:20 | disposition short-term general hospital (02) ==
PROVIDERS: Emergency Provider Registered Nurse Emergency; PCP Family Medicine
DX: R50.9 Fever, unspecified (principal); R22.1 Localized swelling, mass and lump, neck; C02.9 Malignant neoplasm of tongue, unspecified; Z92.3 Personal history of irradiation; M79.10 Myalgia, unspecified site; Z03.818 Encounter for observation for suspected exposure to other biological agents ruled out; E11.9 Type 2 diabetes mellitus without complications; G35 Multiple sclerosis
CPT/HCPCS: 36415; 70491; 80053; 87040; 87637; 93005; 96361; 96365; 96367; 96368; 96375; 99285; 70460; 71045; 81003; 81015; 83605; 83735; 85025; 87086; 93010; J0131; J3490

== ENCOUNTER 2020-05-12 21:09 | Outpatient (REF) | payer MEDICARE, MEDICAID, SELFPAY ==
[2020-05-15 16:00] LABS: COVID-19 RT-PCR Result NEGATIVE (Negative)
== END 2020-05-12 21:29 ==
LOC: LBN 21:09
PROVIDERS: PCP Family Medicine; Visit Provider Nurse Practitioner Adult Health
DX: Z11.59 Encounter for screening for other viral diseases (principal)
CPT/HCPCS: U0003

== ENCOUNTER 2020-05-16 18:54 | Outpatient (REF) | payer MEDICARE, MEDICAID, SELFPAY ==
[2020-05-17 17:48] LABS: COVID-19 RT-PCR Result Not Detected ((See Note))
== END 2020-05-16 19:14 ==
LOC: LBN 18:54
PROVIDERS: PCP Family Medicine; Visit Provider Nurse Practitioner Adult Health
DX: Z11.59 Encounter for screening for other viral diseases (principal)
CPT/HCPCS: U0003

== ENCOUNTER 2020-05-18 22:43 | Outpatient (REF) | payer MEDICARE, MEDICAID, SELFPAY ==
[2020-05-18 17:32] LABS: ALT 37 U/L (14-59); AST 39 U/L (15-37); Albumin 3.5 g/dL (3.4-5.0); Alkaline Phosphatase 134 U/L (46-116); Anion Gap 6.5 mmol/L (3-11); BUN 9 mg/dL (7-18); Bilirubin, Total 0.4 mg/dL (0.2-1.0); CO2 30.5 mmol/L (21.0-32.0); Calcium 9.5 mg/dL (8.5-10.1); Chloride 100 mmol/L (98-107); Glucose 122 mg/dL (74-106); Potassium 4.9 mmol/L (3.5-5.1); Sodium 137 mmol/L (136-145); Total Protein 8.3 g/dL (6.4-8.2)
== END 2020-05-18 23:03 ==
LOC: LBN 22:43
PROVIDERS: PCP Family Medicine; Visit Provider Nurse Practitioner Adult Health
DX: A41.9 Sepsis, unspecified organism (principal)
CPT/HCPCS: 80053; 85025

== ENCOUNTER 2020-05-24 22:14 | Outpatient (REF) | payer MEDICARE, MEDICAID, SELFPAY ==
[2020-05-24 21:25] LABS: Abs Immature Grans 0.01 10^3/uL (0.0-0.06); Absolute Basophil Count 0.02 10^3/uL (0.0-0.2); Absolute Eosinophil Count 0.16 10^3/uL (0.0-0.7); Absolute Lymphocyte Count 0.93 10^3/uL (1.2-3.4); Absolute Monocyte Count 0.21 10^3/uL (0.1-0.8); Absolute Neutrophil Count 2.36 10^3/uL (1.2-6.7); Basophils % 0.5; Eosinophils % 4.3; HCT 36.6 % (36.0-46.0); HGB 11.4 g/dL (11.2-15.7); Immature Grans % 0.3; Lymphocytes % 25.2; MCH 30.8 pg (27.0-33.0); MCHC 31.1 % (32.0-36.0); MCV 98.9 fL (80-95); MPV 12.3 fL (8.0-11.0); Monocytes % 5.7; Nucleated RBC 0 %; Platelet Count 198 10^3/uL (130-400); RDW 15.5 % (11.7-14.6); RDW-SD 56.5 fL; WBC 3.69 10^3/uL (4.4-10.8)
[2020-05-24 21:43] LABS: ALT 29 U/L (14-59); AST 21 U/L (15-37); Albumin 3.1 g/dL (3.4-5.0); Alkaline Phosphatase 127 U/L (46-116); Anion Gap 7.6 mmol/L (3-11); BUN 12 mg/dL (7-18); Bilirubin, Total 0.3 mg/dL (0.2-1.0); CO2 27.4 mmol/L (21.0-32.0); CREATININE 0.56 mg/dL (0.55-1.02); Calcium 8.9 mg/dL (8.5-10.1); Chloride 103 mmol/L (98-107); Glucose 111 mg/dL (74-106); Sodium 138 mmol/L (136-145)
== END 2020-05-24 22:34 ==
LOC: LBN 22:14
PROVIDERS: PCP Family Medicine; Visit Provider Nurse Practitioner Adult Health
DX: E83.119 Hemochromatosis, unspecified (principal); E11.9 Type 2 diabetes mellitus without complications; A41.89 Other specified sepsis; G35 Multiple sclerosis
CPT/HCPCS: 80053; 85025

== ENCOUNTER 2020-05-26 19:53 | Outpatient (REF) | payer MEDICARE, MEDICAID, SELFPAY ==
[2020-05-28 21:09] LABS: COVID-19 RT-PCR UVMMC Result Negative (Negative)
== END 2020-05-26 20:13 ==
LOC: LBN 19:53
PROVIDERS: PCP Family Medicine; Visit Provider Nurse Practitioner Adult Health
DX: Z11.59 Encounter for screening for other viral diseases (principal)
CPT/HCPCS: U0003

== ENCOUNTER 2020-07-10 22:40 | Outpatient (REF) | payer MEDICARE, MEDICAID, SELFPAY ==
[2020-07-10 20:22] LABS: Abs Immature Grans 0.01 10^3/uL (0.0-0.06); Absolute Basophil Count 0.04 10^3/uL (0.0-0.2); Absolute Lymphocyte Count 0.99 10^3/uL (1.2-3.4); Absolute Monocyte Count 0.27 10^3/uL (0.1-0.8); Absolute Neutrophil Count 2.31 10^3/uL (1.2-6.7); Eosinophils % 5.2; HCT 39.9 % (36.0-46.0); HGB 12.8 g/dL (11.2-15.7); Immature Grans % 0.3; Lymphocytes % 25.9; MCH 30.7 pg (27.0-33.0); MCHC 32.1 % (32.0-36.0); MCV 95.7 fL (80-95); Monocytes % 7.1; Neutrophils % 60.5; Nucleated RBC 0 %; Platelet Count 189 10^3/uL (130-400); RBC 4.17 10^6/uL (3.93-5.22); RDW 13.9 % (11.7-14.6); RDW-SD 48.8 fL; WBC 3.82 10^3/uL (4.4-10.8)
[2020-07-10 20:35] LABS: Anion Gap 6.9 mmol/L (3-11); BUN 11 mg/dL (7-18); CO2 31.1 mmol/L (21.0-32.0); CREATININE 0.5 mg/dL (0.55-1.02); Calcium 9.1 mg/dL (8.5-10.1); Chloride 103 mmol/L (98-107); Glucose 109 mg/dL (74-106); Potassium 3.9 mmol/L (3.5-5.1); Sodium 141 mmol/L (136-145)
== END 2020-07-10 22:41 | disposition home or self-care (01) ==
LOC: LBN 22:40
PROVIDERS: PCP Family Medicine; Visit Provider Nurse Practitioner Adult Health
DX: C02.9 Malignant neoplasm of tongue, unspecified (principal); R22.1 Localized swelling, mass and lump, neck
CPT/HCPCS: 80048; 85025

== ENCOUNTER 2020-07-31 16:57 | Outpatient (REF) | payer MEDICARE, MEDICAID, SELFPAY ==
[2020-07-31 18:21] LABS: Bilirubin Negative (Negative); Blood Small (Negative); Clarity Cloudy (Clear); Glucose Negative (Negative); Ketones Negative (Negative); Leukocyte Esterase Large (Negative); Nitrite Negative (Negative); Urobilinogen 0.2 EU/dL (Up TO 0.2); pH 6.5 (5-8)
[2020-07-31 19:02] LABS: Bacteria Packed HPF (Negative); Crystals Negative HPF (Negative); Epithelial Cells Negative HPF (Negative); Mucus Negative (Negative); WBC >50 HPF (0-5)
[2020-07-31 19:03] LABS: C & S Indicated? C&S Done As Ordered
== END 2020-07-31 16:58 | disposition home or self-care (01) ==
LOC: LBN 16:57
PROVIDERS: PCP Family Medicine; Visit Provider Nurse Practitioner Adult Health
DX: R35.0 Frequency of micturition (principal)
CPT/HCPCS: 81003; 81015; 87086

== ENCOUNTER 2020-08-10 16:17 | Outpatient (REF) | payer MEDICARE, MEDICAID, SELFPAY ==
[2020-08-10 18:59] LABS: TSH 4.47 uIU/mL (0.36-3.74)
== END 2020-08-10 16:18 | disposition home or self-care (01) ==
LOC: LBN 16:17
PROVIDERS: PCP Family Medicine; Visit Provider Nurse Practitioner Adult Health
DX: R94.6 Abnormal results of thyroid function studies (principal)
CPT/HCPCS: 84443

== ENCOUNTER → 2020-08-22 10:27 | Outpatient (BNVA) | payer MEDICARE, MEDICAID, SELFPAY | PROVIDERS: PCP Family Medicine; Referring Provider Family Medicine; Visit Provider Nurse Practitioner Gerontology | DX: N31.8 Other neuromuscular dysfunction of bladder (principal) | CPT/HCPCS: 99213 ==

== ENCOUNTER 2020-09-04 02:38 | Outpatient (CLI) | payer MEDICARE, MEDICAID, SELFPAY ==
--- NOTE | 2020-09-04 06:45 | DI.US_ITS ---
EXAM: US RENAL CLINICAL HISTORY: neurogenic bladder - ?hydro and retention,N31.9. TECHNIQUE: Parikh scale, color and spectral Doppler were used. COMPARISON: CT CT ABDOMEN PELVIS W from 07/08/2019 FINDINGS: Renal length in cm: Right: 8.8 left: 8.5 Echogenicity: Normal Hydronephrosis: No Cyst or mass: No Nephrolithiasis: No Bladder:Diffusely thickened trabeculated wall. Dependent debris seen. Prevoid vol:88 cc Postvoid vol:Not performed. Patient could not void. Right ureteral jet visualized. Left ureteral jet not visualized. IMPRESSION: No evidence of hydronephrosis. Trabeculated bladder wall. Debris is noted within the bladder. DATA REPOSITORY:
== END 2020-09-04 02:58 ==
PROVIDERS: PCP Family Medicine; Visit Provider Nurse Practitioner Gerontology
DX: N31.8 Other neuromuscular dysfunction of bladder (principal); N32.89 Other specified disorders of bladder
CPT/HCPCS: 76770

== ENCOUNTER → 2020-09-20 11:27 | Outpatient (BNVA) | payer MEDICARE, MEDICAID, SELFPAY | PROVIDERS: PCP Family Medicine; Referring Provider Family Medicine; Visit Provider Nurse Practitioner Gerontology | DX: N31.8 Other neuromuscular dysfunction of bladder (principal) | CPT/HCPCS: 99442 ==

== ENCOUNTER → 2020-10-22 12:13 | Outpatient (BNVA) | payer MEDICARE, MEDICAID, SELFPAY | PROVIDERS: PCP Family Medicine; Referring Provider Family Medicine; Visit Provider Psychiatry & Neurology Neurology | DX: G35 Multiple sclerosis (principal); G82.20 Paraplegia, unspecified; E11.40 Type 2 diabetes mellitus with diabetic neuropathy, unspecified; M62.838 Other muscle spasm | CPT/HCPCS: 99215 ==

== ENCOUNTER 2020-10-24 05:31 | Outpatient (REF) | payer MEDICARE, MEDICAID, SELFPAY ==
[2020-10-24 11:43] LABS: Bilirubin Negative (Negative); Blood Large (Negative); Clarity Cloudy (Clear); Glucose Negative (Negative); Ketones Negative (Negative); Leukocyte Esterase Moderate (Negative); Nitrite Positive (Negative); Specific Gravity 1.025 (1.005-1.025); Urobilinogen 0.2 EU/dL (Up TO 0.2); pH 6.5 (5-8)
[2020-10-24 12:00] LABS: Bacteria Many HPF (Negative); C & S Indicated? C&S Done As Ordered; Casts Negative LPF (Negative); Crystals Negative HPF (Negative); Epithelial Cells Many HPF (Negative); Mucus Negative (Negative); RBC 20-50 HPF (0-2); WBC >50 HPF (0-5)
== END 2020-10-24 05:32 | disposition home or self-care (01) ==
LOC: LBN 05:31
PROVIDERS: PCP Family Medicine; Visit Provider Family Medicine
DX: N39.0 Urinary tract infection, site not specified (principal)
CPT/HCPCS: 87077; 81003; 81015; 87086; 87186

== ENCOUNTER 2020-11-01 13:33 | Emergency (ER) | payer MEDICARE, MEDICAID, SELFPAY ==
[2020-11-01] VITALS (23 sets, daily range): BP systolic 112–125; BP diastolic 65–78; PULSE 72–86; RESP 10–31; TEMP 36.7–36.8; O2SAT 98–100
--- NOTE | 2020-11-01 13:42 | W.ED.GENAD ---
Discharge Plan Disposition Patient Disposition: HOME Condition: Stable Discharge Details Clinical Impression: UTI (urinary tract infection), Nausea and vomiting Primary Care Provider: Steve Dudley ED Provider: Heather Gonzalez Home Meds and New Rx's Prescriptions: Continued epinephrine [EpiPen] 0.3 mg/0.3 mL auto-injector 0.3 mg IM Q5-15M PRNRF: 0 Glucagon (HCl) Emergency Kit 1 mg recon soln 1 mg subcut Q20M PRNRF: 0 dextrose [Dex4 Glucose] 40 % gel 15 g PO Q15M PRNRF: 0 levothyroxine 25 mcg tablet 25 mcg PO DAILY RF: 0 ondansetron HCl [Zofran] 4 mg tablet 4 mg PO Q8H PRNRF: 0 cranberry extract 425 mg capsule 1,700 mg PO HS RF: 0 melatonin 5 mg capsule 5 mg PO HS RF: 0 polyethylene glycol 3350 17 gram/dose powder 17 g PO DAILY RF: 0 pregabalin 75 mg capsule 75 mg PO BID RF: 0 baclofen 20 MG tablet 30 mg PO TID RF: 0 magnesium hydroxide [Milk of Magnesia] 400 MG/5 ML suspension 30 ml PO PRN RF: 0 apixaban 2.5 mg Tablet 2.5 mg PO BID RF: 0 acetaminophen [Tylenol] 325 MG tablet 650 mg PO Q6H PRN PRNRF: 0 bisacodyl 10 MG suppository 10 mg LA DAILY PRN PRN (Reason: Constipation) RF: 0 clonazepam [Klonopin] 1 MG tablet 1 mg PO QPM RF: 0 vitamin B complex Tablet 1 tab PO DAILY RF: 0 cholecalciferol (vitamin D3) [Vitamin D3] 10 mcg (400 unit) capsule 1,000 unit PO DAILY RF: 0 escitalopram oxalate 10 mg tablet 10 mg PO DAILY RF: 0 Discharge Instructions Instructions: Urinary Tract Infection in Women (ED), Acute Nausea and Vomiting (ED) Additional Instructions: Your blood work was reassuring today. You had a normal white blood cell count and normal lactate. Your heart rate and blood pressure are within normal limits and your presentation today does not appear consistent with sepsis at this time. Drink plenty of fluids and get plenty of rest. Alternate tylenol and motrin as needed and directed for pain. Take the Bactrim as directed until finished. Continue the Zofran as needed and directed for nausea and vomiting Follow-up with your primary care doctor in 1 week. Return to the emergency department with any worsening or new concerning symptoms. Discharge Data Discharge Date/Time-TO BE ENTERED AT DEPARTURE: 11/01/20 16:32 Discharge Physician: Heather Gonzalez Medical Decision Making 40-year-old female with a history diabetes and severe MS currently on Bactrim for UTI [facility] for decreased intake and output and vomiting with concern for developing sepsis as patient has had a history of sepsis with UTI in the past. Vitals within normal limits. Patient appears comfortable and nontoxic. Her abdomen is soft and nontender. We will obtain screening labs, straight cath urinalysis sample, give bolus IV fluids and IV Tylenol and Phenergan and reassess. Labs reviewed. Normal white blood cell count and lactate. Normal renal function. Urinalysis notes 10-20 WBCs and RBCs. Urine culture from 10/24 noted Proteus Mirabilis w/ sensitivity to Bactrim. Patient reassessed and she feels better. She was able to take sips of water. Will plan for discharge back to the rehab. She has been taking Zofran as needed for nausea and vomiting. Advised to continue Bactrim until finished. Advised to follow up with the primary care doctor for re-evaluation. Usual and customary return precautions given prior to discharge. Medical Records Medical records reviewed: Yes I reviewed the patient's medical records. Lab Data Lab results reviewed: Yes I reviewed the patient's lab results. Labs: 11/01/20 15:05 Urine - Reflex from Ua Urine Culture - Pending 11/01/20 14:30 Blood Blood Culture - Pending 11/01/20 14:00 Blood Blood Culture - Pending Laboratory Tests Range/Units 11/01/20 11/01/20 11/01/20 14:00 14:00 14:40 WBC (4.4-10.8) 10^3/uL 4.69 RBC (3.93-5.22) 10^6/uL 4.37 Hgb (11.2-15.7) g/dL 13.4 Hct (36.0-46.0) % 40.4 MCV (80-95) fL 92.4 MCH (27.0-33.0) pg 30.7 MCHC (32.0-36.0) % 33.2 RDW (11.7-14.6) % 14.1 Plt Count (130-400) 10^3/uL 187 MPV (8.0-11.0) fL 11.0 Immature Gran % 0.4 Neutrophils % 74.9 Lymphocytes % 19.0 Monocytes % 4.5 Eosinophils % 0.6 Basophils % 0.6 Nucleated RBC % % 0 Absolute Neutrophils (1.2-6.7) 10^3/uL 3.51 Absolute Lymphocytes (1.2-3.4) 10^3/uL 0.89 L Absolute Monocytes (0.1-0.8) 10^3/uL 0.21 Absolute Eosinophils (0.0-0.7) 10^3/uL 0.03 Absolute Basophils (0.0-0.2) 10^3/uL 0.03 VBG Lactate (0.6-1.4) mmol/L 1.3 Sodium (136-145) mmol/L 138 Potassium (3.5-5.1) mmol/L 4.4 Chloride (98-107) mmol/L 101 Carbon Dioxide (21.0-32.0) mmol/L 28.1 Anion Gap (3-11) mmol/L 8.9 BUN (7-18) mg/dL 15 Creatinine (0.55-1.02) mg/dL 0.8 Estimated GFR/1.73 m2 (mL/min/1.73m2) >= 60.00 Glucose (74-106) mg/dL 75 Calcium (8.5-10.1) mg/dL 9.1 Total Bilirubin (0.2-1.0) mg/dL 0.4 AST (15-37) U/L 23 ALT (14-59) U/L 37 Alkaline Phosphatase (46-116) U/L 131 H Total Protein (6.4-8.2) g/dL 8.5 H Albumin (3.4-5.0) g/dL 3.7 Lipase (73-393) U/L 115 Urine Color (Yellow) Urine Clarity (Clear) Urine pH (5-8) Ur Specific Elizabeth (1.005-1.025) Urine Protein (Negative) mg/dL Urine Ketones (Negative) mg/dL Urine Blood (Negative) Urine Nitrite (Negative) Urine Bilirubin (Negative) Urine Urobilinogen (Up TO 0.2) EU/dL Ur Leukocyte Esterase (Negative) Urine RBC (0-2) HPF Urine WBC (0-5) HPF Ur Epithelial Cells (Negative) HPF Urine Crystals (Negative) HPF Urine Bacteria (Negative) HPF Urine Casts (Negative) LPF Urine Mucus (Negative) Urine Other (Negative) Ur Culture Indicated? Urine Glucose (Negative) mg/dL Range/Units 11/01/20 15:05 WBC (4.4-10.8) 10^3/uL RBC (3.93-5.22) 10^6/uL Hgb (11.2-15.7) g/dL Hct (36.0-46.0) % MCV (80-95) fL MCH (27.0-33.0) pg MCHC (32.0-36.0) % RDW (11.7-14.6) % Plt Count (130-400) 10^3/uL MPV (8.0-11.0) fL Immature Gran % Neutrophils % Lymphocytes % Monocytes % Eosinophils % Basophils % Nucleated RBC % % Absolute Neutrophils (1.2-6.7) 10^3/uL Absolute Lymphocytes (1.2-3.4) 10^3/uL Absolute Monocytes (0.1-0.8) 10^3/uL Absolute Eosinophils (0.0-0.7) 10^3/uL Absolute Basophils (0.0-0.2) 10^3/uL VBG Lactate (0.6-1.4) mmol/L Sodium (136-145) mmol/L Potassium (3.5-5.1) mmol/L Chloride (98-107) mmol/L Carbon Dioxide (21.0-32.0) mmol/L Anion Gap (3-11) mmol/L BUN (7-18) mg/dL Creatinine (0.55-1.02) mg/dL Estimated GFR/1.73 m2 (mL/min/1.73m2) Glucose (74-106) mg/dL Calcium (8.5-10.1) mg/dL Total Bilirubin (0.2-1.0) mg/dL AST (15-37) U/L ALT (14-59) U/L Alkaline Phosphatase (46-116) U/L Total Protein (6.4-8.2) g/dL Albumin (3.4-5.0) g/dL Lipase (73-393) U/L Urine Color (Yellow) Yellow Urine Clarity (Clear) Clear Urine pH (5-8) 7.0 Ur Specific Elizabeth (1.005-1.025) 1.025 Urine Protein (Negative) mg/dL 100 H Urine Ketones (Negative) mg/dL 15 H Urine Blood (Negative) Large H Urine Nitrite (Negative) Negative Urine Bilirubin (Negative) Negative Urine Urobilinogen (Up TO 0.2) EU/dL 0.2 Ur Leukocyte Esterase (Negative) Trace H Urine RBC (0-2) HPF 10-20 H Urine WBC (0-5) HPF 10-20 H Ur Epithelial Cells (Negative) HPF Rare Urine Crystals (Negative) HPF Negative Urine Bacteria (Negative) HPF Negative Urine Casts (Negative) LPF Negative Urine Mucus (Negative) Negative Urine Other (Negative) Negative Ur Culture Indicated? Yes Urine Glucose (Negative) mg/dL Negative HPI General Mode of arrival: EMS. Date/Time Provider Initiated Documentation: 11/01/20 13:36. Limitations to Documentation: physical limitation. Information obtained by: patient and EMS. HPI Narrative: Patient is a 40-year-old female with severe MS who is currently on Bactrim for UTI [facility] for decreased intake and output, nausea and vomiting with concern for developing sepsis. Patient states she has not had much of an appetite for the past few days and last vomited yesterday. She denies any known fever, abdominal or back pain. Patient states she does not feel similar to how she has felt with sepsis in the past but the staff at [facility] wanted to make sure she was not on her way to developing sepsis. Related Data Home Medications Medication Instructions Recorded Confirmed baclofen 30 mg PO TID tab-cap 04/20/17 11/01/20 magnesium hydroxide [Milk of 30 ml PO PRN ml 04/20/17 11/01/20 Magnesia] acetaminophen [Tylenol] 650 mg PO Q6H PRN PRN 11/23/17 11/01/20 bisacodyl 10 mg LA DAILY PRN PRN 11/23/17 11/01/20 clonazepam [Klonopin] 1 mg PO QPM 11/23/17 11/01/20 apixaban 2.5 mg PO BID 07/18/18 11/01/20 vitamin B complex 1 tab PO DAILY 09/14/18 11/01/20 escitalopram oxalate 10 mg PO DAILY 05/06/20 11/01/20 cholecalciferol (vitamin D3) 10 1,000 unit PO DAILY cap 10/22/20 11/01/20 mcg (400 unit) capsule cranberry extract 425 mg capsule 1,700 mg PO HS cap 10/22/20 11/01/20 dextrose 40 % oral gel 15 g PO Q15M PRN 10/22/20 11/01/20 epinephrine 0.3 mg/0.3 mL 0.3 mg IM Q5-15M PRN 10/22/20 11/01/20 injection, auto-injector glucagon HCl 1 mg solution for 1 mg SUBCUT Q20M PRN 10/22/20 11/01/20 injection levothyroxine 25 mcg tablet 25 mcg PO DAILY 10/22/20 11/01/20 melatonin 5 mg capsule 5 mg PO HS cap 10/22/20 11/01/20 ondansetron HCl 4 mg tablet 4 mg PO Q8H PRN 10/22/20 11/01/20 polyethylene glycol 3350 17 17 g PO DAILY 10/22/20 11/01/20 gram/dose oral powder pregabalin 75 mg capsule 75 mg PO BID 10/22/20 11/01/20 Allergies Allergy/AdvReac Type Severity Reaction Status Date / Time amoxicillin Allergy Severe Hives Unverified 10/22/20 12:20 venom-honey bee Allergy Severe Anaphylaxsi Unverified 10/22/20 12:20 s azithromycin [From Zithromax] Allergy Intermediate hives Verified 10/22/20 12:20 ciprofloxacin Allergy Intermediate Hives Verified 10/22/20 12:20 cod liver oil Allergy Intermediate Verified 10/22/20 12:20 Gadolinium-Containing Allergy Intermediate Hives Unverified 10/22/20 12:20 Contrast Medi lactose Allergy Mild Verified 10/22/20 12:20 ceftriaxone [From Rocephin] Allergy Verified 10/22/20 12:20 cortisone Allergy Unverified 10/22/20 12:20 interferon beta-1b Allergy Unverified 10/22/20 12:20 [From Betaseron] methylprednisolone Allergy Unverified 10/22/20 12:20 [From Solu-Medrol] red dye Allergy Unverified 10/22/20 12:20 metformin AdvReac Intermediate RASH, Unverified 10/22/20 12:20 DIARRHEA gabapentin AdvReac Mild LE edema Unverified 10/22/20 12:20 Hymenoptera allergen extract Allergy Uncoded 10/22/20 12:20 General Stated Complaint: Urinary BRENDAN: 3 Review of Systems All systems reviewed & are unremarkable except as noted in HPI and below Constitutional Constitutional: Reports as per HPI, Denies chills and Denies fever(s) Eyes Eyes: Denies blurry vision ENT Ears, Nose, Mouth, and Throat: Denies dizziness, Denies sore throat and Denies throat swelling Cardiovascular Cardiovascular: Denies chest pain and Denies dyspnea Respiratory Respiratory: Denies cough and Denies dyspnea Gastrointestinal Gastrointestinal: Denies abdominal pain, Denies diarrhea and Reports vomiting Genitourinary Genitourinary: Denies hematuria and Denies dysuria Musculoskeletal Musculoskeletal: Denies back pain and Denies numbness Integumentary/Breasts Skin/Breast: Denies lesions and Denies rash Neurologic Neurologic: Denies dizziness, Denies localized weakness and Denies numbness Allergic/Immunologic Allergic/Immunologic: Denies throat swelling [facility] Medical History (Updated 11/01/20 @ 15:45 by Heather Gonzalez DO) Breakthrough bleeding on Depo-Provera onset 08/2017. Pt uses adult diapers for incontinence. No clots. 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 History of tracheostomy This was temporary after aspiration when the patient was younger as a complication of her MS S/P percutaneous endoscopic gastrostomy (PEG) tube placement This is now not present have been removed patient able to swallow Family History Mother Multiple sclerosis Social History Smoking/Tobacco Use Status: Never Smoking risk assessment performed?: Yes Alcohol Intake: never Substance use type: does not use Caregiver/Support person: Yes (inpt at [facility] ) Details: bedbound Housing: jail Number of Children: 2 Communication Needs: None current occupation: disabled Sexually active: No Do you feel safe at home: Yes Do you feel safe in your relationship?: Yes Additional Social history: In process of . History History 2 Para Hx # Term Pregnancies 2 Multiple births Hx # Pregnancies Ectopic pregnancies AB induced Hx Number of Living Children AB spontaneous Exam Const General: cooperative, no acute distress and ill appearing chronically Nutritional Appearance: obese morbidly obese Orientation: alert and awake HENMT Head: normal to inspection Face and sinus: normal facial exam Eyes General: appearance normal, both eyes and all related structures Pupils: PERRL EOM: EOM intact bilaterally Neck Neck: normal visual inspection and No submandibular swelling Lymphatic: no lymphadenopathy noted Chest Chest: normal inspection of the chest and no tenderness Resp Effort & Inspection: normal respiratory effort and able to speak in complete sentences Auscultation: clear to auscultation bilaterally Cardio Rate: regular rate Rhythm: regular rhythm GI Inspection: normal to inspection Palpation: soft, not firm, not rigid and nontender Auscultation: normal bowel sounds Skin General skin exam: no rashes or lesions noted Neuro General: patient alert, patient awake and patient oriented x3 Cognition: normal cognition Speech: speech normal Motor: muscle tone normal throughout Sensory Exam: no sensory deficits noted Extrem General: normal to inspection, full ROM, capillary refill normal, no calf tenderness bilaterally and no edema Psych Appearance: grossly normal Mental Status: mental status grossly normal Speech and Movement: speech and movement normal Affect: normal affect Course Vital Signs Vital signs: Vital Signs Temperature 98.2 F 11/01/20 13:32 Pulse 72 11/01/20 13:32 Respiratory Rate 14 11/01/20 13:32 Blood Pressure 119/75 11/01/20 13:32 Pulse Oximetry 98 11/01/20 13:32 Temperature 98.2 F 11/01/20 13:32 Temperature Source Skin 11/01/20 13:32 Pulse 72 11/01/20 13:32 Respiratory Rate 14 11/01/20 13:32 Blood Pressure 119/75 11/01/20 13:32 Blood Pressure Position Supine 11/01/20 13:32 Pulse Oximetry 98 11/01/20 13:32 Oxygen Delivery Method Room Air 11/01/20 13:32 Oxygen Flow Rate 0 11/01/20 13:32 Pain Level 4 11/01/20 13:32 Comment 11/01/20 13:32 Lab/Test Results Lab/Test Results: 11/01/20 13:41 Blood Blood Culture - Pending 11/01/20 13:41 Blood Blood Culture - Pending
[2020-11-01 14:13] LABS: Abs Immature Grans 0.02 10^3/uL (0.0-0.06); Absolute Basophil Count 0.03 10^3/uL (0.0-0.2); Absolute Eosinophil Count 0.03 10^3/uL (0.0-0.7); Absolute Lymphocyte Count 0.89 10^3/uL (1.2-3.4); Absolute Monocyte Count 0.21 10^3/uL (0.1-0.8); Absolute Neutrophil Count 3.51 10^3/uL (1.2-6.7); Basophils % 0.6; Eosinophils % 0.6; HCT 40.4 % (36.0-46.0); HGB 13.4 g/dL (11.2-15.7); Immature Grans % 0.4; MCH 30.7 pg (27.0-33.0); MCHC 33.2 % (32.0-36.0); MCV 92.4 fL (80-95); Monocytes % 4.5; Neutrophils % 74.9; Nucleated RBC 0 %; Platelet Count 187 10^3/uL (130-400); RBC 4.37 10^6/uL (3.93-5.22); RDW 14.1 % (11.7-14.6); RDW-SD 47.8 fL; WBC 4.69 10^3/uL (4.4-10.8)
[2020-11-01 14:28] LABS: ALT 37 U/L (14-59); AST 23 U/L (15-37); Albumin 3.7 g/dL (3.4-5.0); Alkaline Phosphatase 131 U/L (46-116); Anion Gap 8.9 mmol/L (3-11); BUN 15 mg/dL (7-18); Bilirubin, Total 0.4 mg/dL (0.2-1.0); CO2 28.1 mmol/L (21.0-32.0); CREATININE 0.8 mg/dL (0.55-1.02); Calcium 9.1 mg/dL (8.5-10.1); Chloride 101 mmol/L (98-107); Glucose 75 mg/dL (74-106); Lipase 115 U/L (73-393); Potassium 4.4 mmol/L (3.5-5.1); Sodium 138 mmol/L (136-145); Total Protein 8.5 g/dL (6.4-8.2)
[2020-11-01 14:45] LABS: Lactate 1.3 mmol/L (0.6-1.4)
[2020-11-01] MEDS: Normal Saline Flush 10 ML SYR IVP (14:47)
[2020-11-01] MEDS: Normal Saline 1,000 ML 1000 ML IV (14:47)
[2020-11-01] MEDS: ACETAMINOPHEN 1,000 MG/100 ML BTL 400 MG IVPB (15:10)
[2020-11-01 15:20] LABS: Bilirubin Negative (Negative); Blood Large (Negative); Clarity Clear (Clear); Glucose Negative (Negative); Ketones 15 mg/dL (Negative); Leukocyte Esterase Trace (Negative); Nitrite Negative (Negative); Specific Gravity 1.025 (1.005-1.025); Urobilinogen 0.2 EU/dL (Up TO 0.2)
[2020-11-01 15:36] LABS: Bacteria Negative HPF (Negative); C & S Indicated? Yes; Casts Negative LPF (Negative); Crystals Negative HPF (Negative); Epithelial Cells Rare HPF (Negative); Mucus Negative (Negative); Other Cells Negative (Negative)
== END 2020-11-01 16:32 | disposition home or self-care (01) ==
LOC: ER 16:14
PROVIDERS: Emergency Provider Physician Assistant; PCP Family Medicine
DX: N39.0 Urinary tract infection, site not specified (principal); R11.2 Nausea with vomiting, unspecified; G35 Multiple sclerosis; Z87.440 Personal history of urinary (tract) infections; Z86.19 Personal history of other infectious and parasitic diseases
CPT/HCPCS: 36415; 80053; 83690; 87040; 96361; 96365; 96375; 99284; 81003; 81015; 83605; 85025; 87086; 99283; J0131

== ENCOUNTER 2020-11-11 19:47 | Outpatient (REF) | payer MEDICARE, MEDICAID, SELFPAY ==
[2020-11-11 21:16] LABS: Bilirubin Negative (Negative); Blood Moderate (Negative); Clarity Sl Cloudy (Clear); Glucose Negative (Negative); Ketones Negative (Negative); Leukocyte Esterase Large (Negative); Nitrite Positive (Negative); Specific Gravity 1.025 (1.005-1.025); Urobilinogen 0.2 EU/dL (Up TO 0.2); pH 6.5 (5-8)
[2020-11-11 21:20] LABS: C & S Indicated? C&S Done As Ordered; WBC >50 HPF (0-5)
== END 2020-11-11 19:48 | disposition home or self-care (01) ==
LOC: LBN 19:47
PROVIDERS: PCP Family Medicine; Visit Provider Family Medicine
DX: N39.0 Urinary tract infection, site not specified (principal)
CPT/HCPCS: 87077; 81003; 81015; 87086; 87186

== ENCOUNTER 2021-02-03 19:30 | Outpatient (REF) | payer MEDICARE, MEDICAID, SELFPAY ==
[2021-02-03 21:26] LABS: Bilirubin Negative (Negative); Blood Moderate (Negative); Clarity Cloudy (Clear); Glucose Negative (Negative); Ketones Negative (Negative); Leukocyte Esterase Large (Negative); Nitrite Positive (Negative); Specific Gravity 1.025 (1.005-1.025); Urobilinogen 0.2 EU/dL (Up TO 0.2)
[2021-02-03 21:37] LABS: Bacteria Many HPF (Negative); C & S Indicated? No/Sq. Contamination; Casts Negative LPF (Negative); Crystals Negative HPF (Negative); Epithelial Cells Many HPF (Negative); Mucus Negative (Negative); WBC >50 HPF (0-5)
== END 2021-02-03 19:31 | disposition home or self-care (01) ==
LOC: LBN 19:30
PROVIDERS: PCP Family Medicine; Visit Provider Family Medicine
DX: N39.0 Urinary tract infection, site not specified (principal)
CPT/HCPCS: 81003; 81015; 87086

== ENCOUNTER 2021-02-08 16:44 | Outpatient (REF) | payer MEDICARE, MEDICAID, SELFPAY ==
[2021-02-08 18:21] LABS: Bilirubin Negative (Negative); Blood Large (Negative); Clarity Clear (Clear); Glucose Negative (Negative); Ketones Negative (Negative); Leukocyte Esterase Trace (Negative); Nitrite Negative (Negative); Urobilinogen 0.2 EU/dL (Up TO 0.2)
[2021-02-08 19:03] LABS: Bacteria Moderate HPF (Negative); C & S Indicated? Yes; Casts Negative LPF (Negative); Crystals Negative HPF (Negative); Epithelial Cells Negative HPF (Negative); Mucus Negative (Negative); RBC >50 HPF (0-2); WBC >50 HPF (0-5)
== END 2021-02-08 16:45 | disposition home or self-care (01) ==
LOC: LBN 16:44
PROVIDERS: PCP Family Medicine; Visit Provider Nurse Practitioner Family
DX: N39.0 Urinary tract infection, site not specified (principal)
CPT/HCPCS: 87077; 81003; 81015; 87086; 87186

== ENCOUNTER 2021-03-11 09:06 | Outpatient (REF) | payer MEDICARE, MEDICAID, SELFPAY ==
[2021-03-11 09:09] LABS: Abs Immature Grans 0.04 10^3/uL (0.0-0.06); Absolute Basophil Count 0.03 10^3/uL (0.0-0.2); Absolute Eosinophil Count 0.03 10^3/uL (0.0-0.7); Absolute Monocyte Count 0.32 10^3/uL (0.1-0.8); Absolute Neutrophil Count 8.16 10^3/uL (1.2-6.7); Basophils % 0.3; Eosinophils % 0.3; HCT 37.9 % (36.0-46.0); HGB 12.2 g/dL (11.2-15.7); Immature Grans % 0.5; Lymphocytes % 3.4; MCH 29.8 pg (27.0-33.0); MCHC 32.2 % (32.0-36.0); MCV 92.7 fL (80-95); MPV 11.5 fL (8.0-11.0); Monocytes % 3.6; Neutrophils % 91.9; Nucleated RBC 0 %; Platelet Count 184 10^3/uL (130-400); RBC 4.09 10^6/uL (3.93-5.22); RDW 14.6 % (11.7-14.6); RDW-SD 49.7 fL; WBC 8.88 10^3/uL (4.4-10.8)
[2021-03-11 09:48] LABS: ALT 18 U/L (14-59); AST 13 U/L (15-37); Albumin 2.9 g/dL (3.4-5.0); Alkaline Phosphatase 95 U/L (46-116); Anion Gap 13.3 mmol/L (3-11); BUN 16 mg/dL (7-18); Bilirubin, Total 0.9 mg/dL (0.2-1.0); CO2 23.7 mmol/L (21.0-32.0); CREATININE 0.7 mg/dL (0.55-1.02); Calcium 8.5 mg/dL (8.5-10.1); Chloride 103 mmol/L (98-107); Glucose 111 mg/dL (74-106); Potassium 3.4 mmol/L (3.5-5.1); Sodium 140 mmol/L (136-145); Total Protein 6.8 g/dL (6.4-8.2)
== END 2021-03-11 09:07 | disposition home or self-care (01) ==
LOC: LBN 09:06
PROVIDERS: PCP Family Medicine; Visit Provider Nurse Practitioner Family
DX: I50.9 Heart failure, unspecified (principal); R50.9 Fever, unspecified; E11.9 Type 2 diabetes mellitus without complications
CPT/HCPCS: 80053; 85025

== ENCOUNTER 2021-03-12 10:23 | Emergency (ER) | payer MEDICARE, MEDICAID, SELFPAY ==
[2021-03-12] VITALS (58 sets, daily range): BP systolic 95–147; BP diastolic 57–98; PULSE 90–150; RESP 15–36; TEMP 36.2–36.7; O2SAT 93–95
--- NOTE | 2021-03-12 10:54 | ED.GENADUL_ITS ---
Discharge Plan Disposition Patient Disposition: OTHER Condition: Serious Discharge Details Clinical Impression: Abdominal abscess, UTI (urinary tract infection), Pneumoperitoneum, Bowel obstruction Primary Care Provider: Steve Dudley ED Provider: Hortensia Abdul Home Meds and New Rx's Prescriptions: No Action epinephrine [EpiPen] 0.3 mg/0.3 mL auto-injector 0.3 mg IM Q5-15M PRNRF: 0 Glucagon (HCl) Emergency Kit 1 mg recon soln 1 mg subcut Q20M PRNRF: 0 dextrose [Dex4 Glucose] 40 % gel 15 g PO Q15M PRNRF: 0 levothyroxine 25 mcg tablet 25 mcg PO DAILY RF: 0 ondansetron HCl [Zofran] 4 mg tablet 4 mg PO Q8H PRNRF: 0 cranberry extract 425 mg capsule 1,700 mg PO HS RF: 0 melatonin 5 mg capsule 5 mg PO HS RF: 0 polyethylene glycol 3350 17 gram/dose powder 17 g PO DAILY RF: 0 pregabalin 75 mg capsule 75 mg PO BID RF: 0 baclofen 20 MG tablet 30 mg PO TID RF: 0 magnesium hydroxide [Milk of Magnesia] 400 MG/5 ML suspension 30 ml PO PRN RF: 0 apixaban 2.5 mg Tablet 2.5 mg PO BID RF: 0 acetaminophen [Tylenol] 325 MG tablet 650 mg PO Q6H PRN PRNRF: 0 bisacodyl 10 MG suppository 10 mg MI DAILY PRN PRN (Reason: Constipation) RF: 0 clonazepam [Klonopin] 1 MG tablet 1 mg PO QPM RF: 0 vitamin B complex Tablet 1 tab PO DAILY RF: 0 cholecalciferol (vitamin D3) [Vitamin D3] 10 mcg (400 unit) capsule 1,000 unit PO DAILY RF: 0 escitalopram oxalate 10 mg tablet 10 mg PO DAILY RF: 0 sennosides [Senna Lax] 8.6 mg Tablet 8.6 mg PO BID PRNRF: 0 methenamine hippurate [Hiprex] 1 gram Tablet 1 g PO BID RF: 0 magnesium hydroxide [Milk of Magnesia] 400 mg/5 mL Suspension 30 ml PO QHS PRNRF: 0 nystatin 100,000 unit/gram Cream 100,000 unit TOPICAL DAILY RF: 0 Discharge Data Discharge Date/Time-TO BE ENTERED AT DEPARTURE: 03/12/21 18:09 Medical Decision Making <Amanda Desai - Last Filed: 03/14/21 17:38> 40-year-old female past medical history of multiple sclerosis with spastic paraplegia, tongue cancer, UTI, DVT, diabetes mellitus, neurogenic bladder, presents to the ER with fever. Report was 103 prior to arrival at facility. 1136: Normal saline running at 300 an hour, patient is tachycardic at 122, urine sample obtained in and out catheter specimen. Will get stool sample as needed and plan for CT abdomen pelvis due to history of gastroparesis, nausea vomiting diarrhea this time labs are pending. 1202: Spoke with Katya at [facility] to request Mar FAXED AND SHE REPORTS PATIENT IS NOT CURRENTLY ON ANTIBIOTICS, SHE REPORTS ON CEFPODOXIME 1 MONTH AGO AND ONE TIME DOSE OF FOSFOMYCIN TROMETHAMINE 3 GM PO ONCE 03-10-21. Labs show no leukocytosis, absolute neutrophils 7.70, sodium 140 potassium 3.4 anion gap 11.7 glucose 108 AST 12 ALT 3018 albumin 2.5, urinalysis shows greater than 300 protein, greater than 160 ketones large blood positive nitrite small bilirubin small leukocytes greater than 50 WBCs culture is pending at this time. 1407: Spoke with Dr. Higgins regarding patient case and details, at this time CT abdomen pelvis is pending she does not accept patient for admission at this time. 1423: spoke with Dr. Camacho radiologist report that there is multiple complicated findings including bilateral infiltrate right-sided pleural effusion, free air in the abdomen is concerning for possible ruptured bowel, enlarged appendix measuring approximately 9 mm but no surrounding stranding, a fluid area in the pelvis which is concerning for possible abscess and cystitis. 1425: Will page surgery. FINDINGS: CHEST: Tracheobronchial tree: Patent where visualized. Pulmonary parenchyma: There are bilateral dependent areas of consolidation in the lower lobes. There appears to be a small right pleural effusion. No a rchitectural distortion. Visualized thyroid gland: Unremarkable. Mediastinum and April: No dominant adenopathy or fluid collection. Pleura: Small right pleural effusion. No left pleural effusion. No pneumothorax. Heart: The heart is not dilated. No coronary artery calcifications are seen. No pericardial effusion. Aorta: Thoracic aorta non-dilated. No dissection. Lymph nodes: Within normal limits. Soft tissues: Unremarkable. Bones:Within normal limits for the patient's age. ABDOMEN: Liver: Normal density. No measurable mass. Portal, Superior Mesenteric, and Splenic Veins: Unremarkable. Gallbladder and Biliary Tract: No radiodense calculus or dilation. Pancreas: Normal density, no abnormal calcifications or inflammatory process. Spleen: Normal. Adrenals: No masses seen. Kidneys: Normal size, contour and axis. No radiodense stones or obstructive uropathy. No masses seen. Abdominal Aorta: Abdominal portion non-dilated. Bowel: There is a large amount of stool in the rectum with mild thickening of the wall raising the question of stercoral colitis. The appendix measures 0.9 cm in diameter. There is air seen within the tip of the appendix the remainder of the appendix is fluid filled there is mild enhancement of the wall. There is some increased attenuation of the appendix in the periappendiceal fat. There are air-fluid level seen in the proximal mid small bowel. The distal colon appears to be of normal caliber though there is mild thickening of the wall of the distal ileum. The findings may represent an enteritis. Partial bowel obstruction or ileus should be considered. Peritoneal Cavity: No ascites, collection or mesenteric inflammatory response. Lymph Nodes: Within normal limits. Bones: Unremarkable. Soft Tissues: Unremarkable. PELVIS: Bladder: There is diffuse thickening and enhancement of the wall of the urinary bladder with associated surrounding inflammation. This is suspicious for an inflammatory/infectious cystitis. There is mild enhancement of the wall of the right ureter and distal left ureter suspicious for urinary tract infection. Reproductive Organs: The patient is status post hysterectomy. There is an area of fluid collection superior to the urinary bladder and anterior to the rectum and sigmoid colon which measures 4.9 cm transverse by 3.1 cm AP. The finding is suspicious for an abscess. Lymph Nodes: Within normal limits. Bones: Within normal limits. IMPRESSION: 1. Pneumoperitoneum. This raises a question for ruptured viscus. 2. Appendix measuring 0.9 cm in diameter with an enhancing wall and containing fluid. There is a small amount of air in the tip. An acute appendicitis cannot be excluded. Please correlate clinically. 3. Diffuse thickening and enhancement of the wall of the urinary bladder suspicious for an infectious or inflammatory cystitis. 4. 4.9 x 3.1 cm thick walled enhancing air-fluid collection superior to the urinary bladder and anterior to the rectum and sigmoid colon suspicious for an abscess. 5. Findings suspicious for stercoral colitis. 6. Bilateral basilar infiltrates and small right pleural effusion. 7. Air-fluid level seen in mildly dilated small bowel loops. The distal small bowel is of normal caliber. Obstruction versus ileus. 8. Results of this exam have been verbally communicated with provider. 9. Unremarkable CT scan of the chest. 1450: Spoke with Dr. Tillman who is carpentry professional for general surgery, She recommends consult with [facility] [place]. 1451: Call made to [facility] [place] transfer center for transfer request, awaiting surgery consult. 1513: Spoke with patient regarding CT findings she verbalizes understanding. She does reiterate that she is a full code and would like surgery if needed. Will speak with [facility] transfer center regarding patient for surgical consult as well. 1512: Spoke again with [facility] [place] transfer center, who reports after consultation with registered medical transcriptionist Dr. Pemberton they do not have a space for the patient. 1513: [facility] transfer center contacted for transfer request, declined due to bed capacity. 1530: Spoke with Pascale, patients mother who is made aware of situation and reports patient has been seen at [facility] previously. 1535: Call made to [facility] and was referred to call Dr. Ventura with general surgery. He will call back. 1610: Call made to [facility] voicemail left. Dr. tillman here in department to personally review the CT and evaluate the patient. 1612: Call made to [facility] for transfer request ED MD to call back. 1634: Spoke with Anesthesia MD at [facility] regarding patient and previous surgeries, he will call me back. 1636: [place] called back, they are closed to transfers. 1648: Care is to be handed off to oncoming provider ROSA Paz pending transfer. Dr. Ventura and anesthesia at [facility] will call back for determination of acceptance. Patient has received 1 g ceftriaxone IV piggyback and 12.5 mg Benadryl IV no evidence for allergic reaction at this point. Patient is hemodynamically stable at the time of this dictation. <ROSA Peng - Last Filed: 03/12/21 21:14> Care transitioned to myself from Amanda Desai NP, please see her initial note regarding history, presentation and exam. At the time I assumed care, plan is for patient to be transferred elsewhere where she cannot undergo surgical intervention for her abdominal pathology. Waiting to hear back from [facility]. In brief, patient is a pleasant 40-year-old female who came in today with chief complaints of fever, abdominal distention and discomfort. Please see CT read. Patient was diagnosed with the UTI as well as intra-abdominal abscess and pneumoperitoneum. Discussion was had here between Ms davey Desai and general surgery erythematous patient was likely better served at different facility secondary to her multiple comorbidities. At the time I assumed care, we are [place] [facility] [place] Ms. Desai has already spoken with anesthesia he feels the patient is safe at their facility. General surgeon has treated this patient historically and is aware of her multiple comorbidities. Consulted with Dr. Ventura at [facility]. He is concerned for possible diverticular abscess. He agrees to accept the patient. I did reevaluate the patient. She reports a mild discomfort. Reevaluated her abdomen. Abdomen is distended and tympanic. No peritoneal findings. No guarding or rebound tenderness. Pain is fairly diffuse but maximal over the right lower quadrant. She appears hemodynamically stable and is resting comfortably. She has received IV antibiotics. Will push films to [facility]. Discussed transfer with the patient. She notes surgeon well and is in agreement with this transfer for continued care. Prior to transfer, patient given morphine to help with discomfort she may experience in route. HPI <Amanda Desai - Last Filed: 03/14/21 17:38> General Mode of arrival: wheelchair . Date/Time Provider Initiated Documentation: 03/12/21 10:47 . Limitations to Documentation: no limitations . Information obtained by: patient . HPI Narrative: 40-year-old female presents to the ER via EMS with chief complaint of fever. Patient is currently being treated for urinary tract infection does have frequent UTIs she reports that she is being treated with a sulfa and some other medication. She does have multiple allergies history of MS she is from [facility] and rehab. She does have contractures. She is alert and oriented at this time. She is complaining of all over body pain she does have a history of gastroparesis. She also reports nausea vomiting diarrhea. Related Data Home Medications Medication Instructions Recorded Confirmed baclofen 30 mg PO TID tab-cap 04/20/17 03/12/21 magnesium hydroxide [Milk of 30 ml PO PRN ml 04/20/17 11/01/20 Magnesia] acetaminophen [Tylenol] 650 mg PO Q6H PRN PRN 11/23/17 03/12/21 bisacodyl 10 mg MI DAILY PRN PRN 11/23/17 03/12/21 clonazepam [Klonopin] 1 mg PO QPM 11/23/17 11/01/20 apixaban 2.5 mg PO BID 07/18/18 03/12/21 vitamin B complex 1 tab PO DAILY 09/14/18 03/12/21 escitalopram oxalate 10 mg PO DAILY 05/06/20 03/12/21 cholecalciferol (vitamin D3) 10 1,000 unit PO DAILY cap 10/22/20 03/12/21 mcg (400 unit) capsule cranberry extract 425 mg capsule 1,700 mg PO HS cap 10/22/20 03/12/21 dextrose 40 % oral gel 15 g PO Q15M PRN 10/22/20 03/12/21 epinephrine 0.3 mg/0.3 mL 0.3 mg IM Q5-15M PRN 10/22/20 03/12/21 injection, auto-injector glucagon HCl 1 mg solution for 1 mg SUBCUT Q20M PRN 10/22/20 03/12/21 injection levothyroxine 25 mcg tablet 25 mcg PO DAILY 10/22/20 03/12/21 melatonin 5 mg capsule 5 mg PO HS cap 10/22/20 03/12/21 ondansetron HCl 4 mg tablet 4 mg PO Q8H PRN 10/22/20 03/12/21 polyethylene glycol 3350 17 17 g PO DAILY 10/22/20 03/12/21 gram/dose oral powder pregabalin 75 mg capsule 75 mg PO BID 10/22/20 03/12/21 magnesium hydroxide [Milk of 30 ml PO QHS PRN 03/12/21 03/12/21 Magnesia] methenamine hippurate [Hiprex] 1 g PO BID 03/12/21 03/12/21 nystatin 100,000 unit TOPICAL DAILY 03/12/21 03/12/21 sennosides [Senna Lax] 8.6 mg PO BID PRN 03/12/21 03/12/21 Allergies Allergy/AdvReac Type Severity Reaction Status Date / Time amoxicillin Allergy Severe Hives Unverified 03/12/21 10:30 venom-honey bee Allergy Severe Anaphylaxsi Unverified 03/12/21 10:30 s azithromycin [From Zithromax] Allergy Intermediate hives Verified 03/12/21 10:30 ciprofloxacin Allergy Intermediate Hives Verified 03/12/21 10:30 cod liver oil Allergy Intermediate Verified 03/12/21 10:30 Gadolinium-Containing Allergy Intermediate Hives Unverified 03/12/21 10:30 Contrast Medi lactose Allergy Mild Verified 03/12/21 10:30 ceftriaxone [From Rocephin] Allergy Verified 03/12/21 10:30 cortisone Allergy Unverified 03/12/21 10:30 interferon beta-1b Allergy Unverified 03/12/21 10:30 [From Betaseron] methylprednisolone Allergy Unverified 03/12/21 10:30 [From Solu-Medrol] red dye Allergy Unverified 03/12/21 10:30 metformin AdvReac Intermediate RASH, Unverified 03/12/21 10:30 DIARRHEA gabapentin AdvReac Mild LE edema Unverified 03/12/21 10:30 Hymenoptera allergen extract Allergy Uncoded 03/12/21 10:30 General Stated Complaint: Fever BRENDAN: 3 Review of Systems <Amanda Engton - Last Filed: 03/14/21 17:38> All systems reviewed & are unremarkable except as noted in HPI and below Gastrointestinal Gastrointestinal: Reports diarrhea, Reports nausea and Reports vomiting PFSH <Amanda Engton - Last Filed: 03/14/21 17:38> Medical History Breakthrough bleeding on Depo-Provera onset 08/2017. Pt uses adult diapers for incontinence. No clots. 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 History of tracheostomy This was temporary after aspiration when the patient was younger as a complication of her MS S/P percutaneous endoscopic gastrostomy (PEG) tube placement This is now not present have been removed patient able to swallow Family History Mother Multiple sclerosis Social History Smoking/Tobacco Use Status: Never Smoking risk assessment performed?: Yes Alcohol Intake: never Substance use type: does not use Caregiver/Support person: Yes (inpt at [facility]& ) Details: bedbound Housing: snf Number of Children: 2 Communication Needs: None current occupation: disabled Sexually active: No Do you feel safe at home: Yes Do you feel safe in your relationship?: Yes History History 2 Para Hx # Term Pregnancies 2 Multiple births Hx # Pregnancies Ectopic pregnancies AB induced Hx Number of Living Children AB spontaneous Exam <Amanda Desai - Last Filed: 03/14/21 17:38> Narrative Exam Narrative: Constitutional: Alert and oriented x3. Appears chronically ill. History of multiple sclerosis does have multiple contractures. Head: Normocephalic, no trauma. Eyes: Pupils PERRLA, Red reflex noted, EOM's intact. Eyelids symmetrical without lesions, discharge, or swelling. ENT: Bilateral TM's WNL, External ear normal to inspection, no mastoid TTP, swelling, or erythema, Nasal turbinates WNL, no nasal discharge. Poor dentition. Patient has a swollen tongue history of tongue surgery. There is a white lesion noted. History of oral thrush. Chest: Tachycardia, normal S1, S2, distal pulses intact. Resp: Lungs diminished to auscultation bilaterally, no wheezes, rales, or rhonchi. Abdomen: Appears distended, patient reports that she has slow bowels nontender to palpation all 4 quadrants. Musculoskeletal: Patient is nonambulatory contracture noted to right lower extremity Skin: Stage I skin breakdown noted to her coccyx and buttock area. She does have a dressing noted on her left buttock which is dated. capillary refill less than 2 sec. Neurologic: Alert and oriented x 3. Hematologic/Lymphatic: No ecchymosis, no lymphadenopathy. Course <Amanda Desai - Last Filed: 03/14/21 17:38> Vital Signs Vital signs: Vital Signs Pulse 116 H 03/12/21 10:27 Respiratory Rate 16 03/12/21 10:27 Blood Pressure 147/97 H 03/12/21 10:27 Pulse Oximetry 94 03/12/21 10:27 Temperature Source Tympanic 03/12/21 10:27 Pulse 116 H 03/12/21 10:27 Respiratory Rate 16 03/12/21 10:27 Blood Pressure 147/97 H 03/12/21 10:27 Blood Pressure Position Sitting 03/12/21 10:27 Pulse Oximetry 94 03/12/21 10:27 Oxygen Delivery Method Room Air 03/12/21 10:27 Oxygen Flow Rate 0 03/12/21 10:27 Pain Level 10 03/12/21 10:27 Lab/Test Results Lab/Test Results: 03/12/21 10:48 Blood Blood Culture - Pending 03/12/21 10:48 Blood Blood Culture - Pending Sign Out <Amanda Desai - Last Filed: 03/14/21 17:38> Sign Out Data: Sign Out Comment: Pending transfer for acute abdomen. Pending repeat CBC, PT, PTT, Mother Pascale would like to be notified when disposition made. [place] [facility] to call back Last updated by Amanda Desai at 03/12/21 16:52
[2021-03-12 11:11] LABS: Abs Immature Grans 0.03 10^3/uL (0.0-0.06); Absolute Basophil Count 0.03 10^3/uL (0.0-0.2); Absolute Eosinophil Count 0.07 10^3/uL (0.0-0.7); Absolute Lymphocyte Count 0.49 10^3/uL (1.2-3.4); Absolute Monocyte Count 0.39 10^3/uL (0.1-0.8); Absolute Neutrophil Count 7.78 10^3/uL (1.2-6.7); Basophils % 0.3; Eosinophils % 0.8; HCT 39.2 % (36.0-46.0); HGB 12.6 g/dL (11.2-15.7); Immature Grans % 0.3; Lymphocytes % 5.6; MCH 29.8 pg (27.0-33.0); MCHC 32.1 % (32.0-36.0); MCV 92.7 fL (80-95); MPV 11.9 fL (8.0-11.0); Monocytes % 4.4; Neutrophils % 88.6; Nucleated RBC 0 %; Platelet Count 174 10^3/uL (130-400); RBC 4.23 10^6/uL (3.93-5.22); RDW 14.6 % (11.7-14.6); WBC 8.79 10^3/uL (4.4-10.8)
[2021-03-12] MEDS: Normal Saline 1,000 ML 1000 ML IV (11:12)
[2021-03-12 11:14] LABS: Source Nasal/Nares
[2021-03-12 11:39] LABS: Bilirubin Small (Negative); Blood Large (Negative); Clarity Cloudy (Clear); Glucose Negative (Negative); Ketones >=160 mg/dL (Negative); Leukocyte Esterase Small (Negative); Nitrite Positive (Negative); Specific Gravity >= 1.030 (1.005-1.025)
[2021-03-12 11:47] LABS: WBC >50 HPF (0-5)
--- NOTE | 2021-03-12 11:48 | DI.CT_ITS ---
Exam(s) CT CHEST/ABD/PEL W EXAM: CT CHEST/ABD/PEL W CLINICAL HISTORY: Fever, R/O PNA, Infectious diarrhea TECHNIQUE: Imaging Protocol: Axial computed tomography images with coronal and sagittal reformatted images were created and reviewed CONTRAST MATERIAL: Intravenous: Omnipaque 350 Contrast volume:100 mL Oral: No COMPARISON: CT ABD PELVIS WITH CONTRAST from 12/27/2017 CT ABD PELVIS WITH CONTRAST from 12/27/[address] ABDOMEN PELVIS W from 07/08/2019 FINDINGS: CHEST: Tracheobronchial tree: Patent where visualized. Pulmonary parenchyma: There are bilateral dependent areas of consolidation in the lower lobes. There appears to be a small right pleural effusion. No architectural distortion. Visualized thyroid gland: Unremarkable. Mediastinum and April: No dominant adenopathy or fluid collection. Pleura: Small right pleural effusion. No left pleural effusion. No pneumothorax. Heart: The heart is not dilated. No coronary artery calcifications are seen. No pericardial effusion. Aorta: Thoracic aorta non-dilated. No dissection. Lymph nodes: Within normal limits. Soft tissues: Unremarkable. Bones:Within normal limits for the patient's age. ABDOMEN: Liver: Normal density. No measurable mass. Portal, Superior Mesenteric, and Splenic Veins: Unremarkable. Gallbladder and Biliary Tract: No radiodense calculus or dilation. Pancreas: Normal density, no abnormal calcifications or inflammatory process. Spleen: Normal. Adrenals: No masses seen. Kidneys: Normal size, contour and axis. No radiodense stones or obstructive uropathy. No masses seen. Abdominal Aorta: Abdominal portion non-dilated. Bowel: There is a large amount of stool in the rectum with mild thickening of the wall raising the qu estion of stercoral colitis. The appendix measures 0.9 cm in diameter. There is air seen within the tip of the appendix the remainder of the appendix is fluid filled there is mild enhancement of the w all. There is some increased attenuation of the appendix in the periappendiceal fat. There are air- fluid level seen in the proximal mid small bowel. The distal colon appears to be of normal caliber t desi there is mild thickening of the wall of the distal ileum. The findings may represent an enteri tis. Partial bowel obstruction or ileus should be considered. Peritoneal Cavity: No ascites, collection or mesenteric inflammatory response. Lymph Nodes: Within normal limits. Bones: Unremarkable. Soft Tissues: Unremarkable. PELVIS: Bladder: There is diffuse thickening and enhancement of the wall of the urinary bladder with associat ed surrounding inflammation. This is suspicious for an inflammatory/infectious cystitis. There is m ild enhancement of the wall of the right ureter and distal left ureter suspicious for urinary tract i nfection. Reproductive Organs: The patient is status post hysterectomy. There is an area of fluid collection s uperior to the urinary bladder and anterior to the rectum and sigmoid colon which measures 4.9 cm tra nsverse by 3.1 cm AP. The finding is suspicious for an abscess. Lymph Nodes: Within normal limits. Bones: Within normal limits. IMPRESSION: 1. Pneumoperitoneum. This raises a question for ruptured viscus. 2. Appendix measuring 0.9 cm in diameter with an enhancing wall and containing fluid. There is a sma ll amount of air in the tip. An acute appendicitis cannot be excluded. Please correlate clinically. 3. Diffuse thickening and enhancement of the wall of the urinary bladder suspicious for an infectious or inflammatory cystitis. 4. 4.9 x 3.1 cm thick walled enhancing air-fluid collection superior to the urinary bladder and anter ior to the rectum and sigmoid colon suspicious for an abscess. 5. Findings suspicious for stercoral colitis. 6. Bilateral basilar infiltrates and small right pleural effusion. 7. Air-fluid level seen in mildly dilated small bowel loops. The distal small bowel is of normal vickie iber. Obstruction versus ileus. 8. Results of this exam have been verbally communicated with provider. 9. Unremarkable CT scan of the chest. RADIATION DOSE DELIVERED: 1,268.52mGy.cm Total DLP DATA REPOSITORY: All CT scans at this facility are submitted to the National Radiology Data Registry (NRDR) Dose Index Registry (DIR) with the [employer] (A[employer]). RADIATION OPTIMIZATION: All CT scans at this facility use at least one of these dose optimization te chniques: automated exposure control; mA and/or kV adjustment per patient size (includes targeted exa ms where dose is matched to clinical indication); or iterative reconstruction.
[2021-03-12 11:50] LABS: C & S Indicated? Yes; Casts 0-2 Coarse Granular LPF (Negative)
[2021-03-12 12:09] LABS: ALT 13 U/L (14-59); AST 12 U/L (15-37); Albumin 2.5 g/dL (3.4-5.0); Alkaline Phosphatase 91 U/L (46-116); Anion Gap 11.7 mmol/L (3-11); BUN 14 mg/dL (7-18); Bilirubin, Total 0.7 mg/dL (0.2-1.0); CO2 23.3 mmol/L (21.0-32.0); CREATININE 0.6 mg/dL (0.55-1.02); Calcium 8.5 mg/dL (8.5-10.1); Chloride 105 mmol/L (98-107); Creatine Kinase 72 U/L (26-192); Glucose 108 mg/dL (74-106); Potassium 3.4 mmol/L (3.5-5.1); Sodium 140 mmol/L (136-145); Total Protein 7.5 g/dL (6.4-8.2)
[2021-03-12 12:12] LABS: COVID-19 PCR Negative (Negative)
[2021-03-12] MEDS: ACETAMINOPHEN 1,000 MG/100 ML BTL 400 MG IVPB (12:13)
--- NOTE | 2021-03-12 12:17 | NUR.NOTE ---
Report from SANJAY Milan for continued careNursing Note:
[2021-03-12] MEDS: Ondansetron 4 MG/2 ML VIAL IVP (12:18)
[2021-03-12] MEDS: Omnipaque 350 MG/ML 100 ML BTL IJ (13:47)
[2021-03-12] MEDS: Normal Saline - Diluent 50 ML VIAL IV (13:48)
--- NOTE | 2021-03-12 14:57 | NUR.NOTE ---
Call to [facility] to verify patient allergies. RN unsure of antibiotic allergies. Patient unsure of antibiotic allergies.Nursing Note:
[2021-03-12] MEDS: diphenhydrAMINE 50 MG/ML VIAL 12.5 MG IVP (15:17)
[2021-03-12] MEDS: cefTRIAXone 1 GM/50 ML BAG IVPB (15:19)
[2021-03-12 16:46] LABS: Basophils % 0.5; Eosinophils % 0.5; HCT 35.2 % (36.0-46.0); HGB 11.3 g/dL (11.2-15.7); Immature Grans % 0.2; Lymphocytes % 6.2; MCH 29.5 pg (27.0-33.0); MCHC 32.1 % (32.0-36.0); MCV 91.9 fL (80-95); MPV 10.9 fL (8.0-11.0); Neutrophils % 87.6; Nucleated RBC 0 %; Platelet Count 155 10^3/uL (130-400); RBC 3.83 10^6/uL (3.93-5.22); RDW 14.7 % (11.7-14.6); RDW-SD 50.2 fL; WBC 6.25 10^3/uL (4.4-10.8)
[2021-03-12 16:47] LABS: Abs Immature Grans 0.01 10^3/uL (0.0-0.06); Absolute Basophil Count 0.03 10^3/uL (0.0-0.2); Absolute Eosinophil Count 0.03 10^3/uL (0.0-0.7); Absolute Lymphocyte Count 0.39 10^3/uL (1.2-3.4); Absolute Monocyte Count 0.31 10^3/uL (0.1-0.8); Absolute Neutrophil Count 5.48 10^3/uL (1.2-6.7)
[2021-03-12 17:01] LABS: INR 1.4 (0.9-1.1); PTT Activated 44.6 sec (21.0-27.5); Prothrombin Time 13.6 sec (9.3-11.0)
--- NOTE | 2021-03-12 17:09 | W.SURGCON ---
Assessment and Plan Assessment and plan (1) UTI (urinary tract infection): Status: Acute Assessment and plan: Patient with recurrent UTI's. Last treated 1 months ago. Given a dose of Rocephin in the ER (2) Spasticity: Status: Acute (3) Diabetic neuropathy: Status: Acute (4) Difficult airway for intubation: Status: Suspected Assessment and plan: secondary to surgery for tongue cancer (5) Neurogenic bladder: Status: Acute (6) Neuropathic pain: Status: Acute (7) Type 2 diabetes mellitus with hyperglycemia: Status: Chronic (8) DVT (deep venous thrombosis): Status: Resolved Assessment and plan: On Apixiban 2.5 mg BID. Last dose was this am (9) MS (multiple sclerosis): Status: Chronic Assessment and plan: Contraction of her bilateral lower extremities as well as her right upper extremity. She is unable to lay flat (10) Abdominal pain: Status: Acute Assessment and plan: CT scan with some free air, a chronic fluid collection as well as a large amount of stool in her rectum and sigmoid colon. LAst BM 1 weeks ago. There is concern for ruptured viscuss. This patient is very complex and a high risk for . Case discussed with anesthesia who is also concerned about a general anesthetic for this patient. Discussed with patient that she is at high risk of dying. Explained that surgery would be very hard especially as we are unable to lay her flat. Discussed paliative care with pain controll. Patient wants to remain a full code and have everything done. Suggest transfer to a more appropriate facility[place] [facility] [place] [facility] unfortunately are full. If unable to find a bed at a more appropriate facility then will admit for IV fluids, antibiotics, bowel rest, enema and possible NG tube. Palliative consult as well. Repeat WBC count continues to be normal. After hydration the patient HR as decreased into the 90's. Continues to be afebrile. I spent 60 minutes in reviewing the record, seeing the patient and documenting in the medical record. (11) Pulmonary infiltrates on CXR: Status: Acute Assessment and plan: ? pneumonia History of Present Illness History of Present Illness Chief Complaint: Fever Narrative: 40-year-old female past medical history of multiple sclerosis with spastic paraplegia, tongue cancer, UTI, DVT, diabetes mellitus, neurogenic bladder, presents to the ER with fever. Report was 103 prior to arrival at facility. Workup in the ER included labs and CT scan chest/abdomen and pelvis. Labs showed normal WBC count as well as lactate. UA showed lots of WBC and red blood cells. Patient has history of recurrent UTI's. Last treated about [address] scan reviwed with Dr. Camacho: there is a small amount of free air. Stomach is not dialated or thickened. There is enlargement of the appendix without inflammatory stranding and with air and fluid in it. There is a chronic fluid collection above the urinary bladder witch is walled off. There is a large amount of stool in the sigmoid and rectum with dilated air filled colon. No thickening of the large bowel. No evidence of diverticular disease. Patient indorses last BM having been 1 week ago and it was large and hard. Patient is very complicated and has had multiple surgeries including a tongue resection, G-tube placement and trache. Her lower extremities are contracted and she is unable to lay flat. Her right arm is contracted as well. Patient is a very high risk patient for [facility]. Consults Consult date: 03/12/21 Requesting physician: Amanda Desai Review of Systems Constitutional Constitutional: Reports fever(s) (no fevers since admission to the ER this am), Denies headache(s) and Denies night sweats Eyes Eyes: Denies change in vision ENT Ears, Nose, Mouth, and Throat: Denies change in voice, Denies headache(s) and Denies hoarseness Cardiovascular Cardiovascular: Denies chest pain, Denies irregular heart rhythm, Denies palpitations and Denies dyspnea on exertion Respiratory Respiratory: Denies cough and Denies dyspnea on exertion Gastrointestinal Gastrointestinal: Reports as per HPI Genitourinary Genitourinary: Reports system reviewed and no additional complaints, except as documented Musculoskeletal Musculoskeletal: Reports system reviewed and no additional complaints, except as documented Neurologic Neurologic: Denies headache(s) Endocrine Endocrine: Denies palpitations [facility] Medical History Breakthrough bleeding on Depo-Provera onset 08/2017. Pt uses adult diapers for incontinence. No clots. 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 History of tracheostomy This was temporary after aspiration when the patient was younger as a complication of her MS S/P percutaneous endoscopic gastrostomy (PEG) tube placement This is now not present have been removed patient able to swallow Family History Mother Multiple sclerosis Social History Smoking/Tobacco Use Status: Never Smoking risk assessment performed?: Yes Alcohol Intake: never Substance use type: does not use Caregiver/Support person: Yes (inpt at [facility]& ) Details: bedbound Housing: longterm Number of Children: 2 Communication Needs: None current occupation: disabled Sexually active: No Do you feel safe at home: Yes Do you feel safe in your relationship?: Yes History History 2 Para Hx # Term Pregnancies 2 Multiple births Hx # Pregnancies Ectopic pregnancies AB induced Hx Number of Living Children AB spontaneous Exam Const General: cooperative, comfortable and no acute distress Orientation: alert and oriented x3 HENMT Head: normocephalic and atraumatic Neck Other: scarring noted from radical neck dissection for her SCC of the tongue Resp Effort & Inspection: normal respiratory effort Auscultation: clear to auscultation bilaterally and diminished lung sounds (bilateral bases) Cardio Rate: regular rate Rhythm: regular rhythm GI Inspection: distended Palpation: soft and tender (diffuse without guarding or rebound) Auscultation: normal bowel sounds Results Last Vital Signs Temp 98 F 03/12/21 15:03 Pulse 90 03/12/21 16:00 Resp 20 03/12/21 13:51 BP 113/76 03/12/21 16:00 Pulse Ox 94 03/12/21 16:30 Labs Result diagrams: 03/12/21 16:34 03/12/21 11:47 Labs: Laboratory Results - last 24 hr 03/12/21 03/12/21 03/12/21 10:51 10:56 10:56 WBC 8.79 RBC 4.23 Hgb 12.6 Hct 39.2 MCV 92.7 MCH 29.8 MCHC 32.1 RDW 14.6 Plt Count 174 MPV 11.9 H Immature Gran % 0.3 Neutrophils % 88.6 Lymphocytes % 5.6 Monocytes % 4.4 Eosinophils % 0.8 Basophils % 0.3 Nucleated RBC % 0 Absolute Neutrophils 7.78 H Absolute Lymphocytes 0.49 L Absolute Monocytes 0.39 Absolute Eosinophils 0.07 Absolute Basophils 0.03 PT INR APTT VBG Lactate Sodium Cancelled Potassium Cancelled Chloride Cancelled Carbon Dioxide Cancelled Anion Gap Cancelled BUN Cancelled Creatinine Cancelled Estimated GFR/1.73 m2 Cancelled Glucose Cancelled Calcium Cancelled Magnesium Cancelled Total Bilirubin Cancelled AST Cancelled ALT Cancelled Alkaline Phosphatase Cancelled Creatine Kinase Total Protein Cancelled Albumin Cancelled Urine Color Urine Clarity Urine pH Ur Specific [place] Urine Protein Urine Ketones Urine Blood Urine Nitrite Urine Bilirubin Urine Urobilinogen Ur Leukocyte Esterase Urine RBC Urine WBC Ur Epithelial Cells Urine Crystals Urine Bacteria Urine Casts Urine Mucus Ur Culture Indicated? Urine Glucose COVID-19 Source Cancelled SARS-CoV-2 (PCR) Cancelled 03/12/21 03/12/21 03/12/21 11:07 11:27 11:47 WBC RBC Hgb Hct MCV MCH MCHC RDW Plt Count MPV Immature Gran % Neutrophils % Lymphocytes % Monocytes % Eosinophils % Basophils % Nucleated RBC % Absolute Neutrophils Absolute Lymphocytes Absolute Monocytes Absolute Eosinophils Absolute Basophils PT INR APTT VBG Lactate Sodium 140 Potassium 3.4 L Chloride 105 Carbon Dioxide 23.3 Anion Gap 11.7 H BUN 14 Creatinine 0.6 Estimated GFR/1.73 m2 >= 60.00 Glucose 108 H Calcium 8.5 Magnesium 2.0 Total Bilirubin 0.7 AST 12 L ALT 13 L Alkaline Phosphatase 91 Creatine Kinase 72 Total Protein 7.5 Albumin 2.5 L Urine Color Yellow Urine Clarity Cloudy Urine pH 6.0 Ur Specific [place] >= 1.030 H Urine Protein >=300 H Urine Ketones >=160 H Urine Blood Large H Urine Nitrite Positive H Urine Bilirubin Small H Urine Urobilinogen 1.0 H Ur Leukocyte Esterase Small H Urine RBC Urine WBC >50 H Ur Epithelial Cells Urine Crystals Not Applicable Urine Bacteria Urine Casts 0-2 Coarse Granular Urine Mucus Ur Culture Indicated? Yes Urine Glucose Negative COVID-19 Source Nasal/Nares SARS-CoV-2 (PCR) Negative 03/12/21 03/12/21 03/12/21 11:47 16:34 16:34 WBC 6.25 RBC 3.83 L Hgb 11.3 Hct 35.2 L MCV 91.9 MCH 29.5 MCHC 32.1 RDW 14.7 H Plt Count 155 MPV 10.9 Immature Gran % 0.2 Neutrophils % 87.6 Lymphocytes % 6.2 Monocytes % 5.0 Eosinophils % 0.5 Basophils % 0.5 Nucleated RBC % 0 Absolute Neutrophils 5.48 Absolute Lymphocytes 0.39 L Absolute Monocytes 0.31 Absolute Eosinophils 0.03 Absolute Basophils 0.03 PT 13.6 H INR 1.4 H APTT 44.6 H VBG Lactate 1.0 Sodium Potassium Chloride Carbon Dioxide Anion Gap BUN Creatinine Estimated GFR/1.73 m2 Glucose Calcium Magnesium Total Bilirubin AST ALT Alkaline Phosphatase Creatine Kinase Total Protein Albumin Urine Color Urine Clarity Urine pH Ur Specific [place] Urine Protein Urine Ketones Urine Blood Urine Nitrite Urine Bilirubin Urine Urobilinogen Ur Leukocyte Esterase Urine RBC Urine WBC Ur Epithelial Cells Urine Crystals Urine Bacteria Urine Casts Urine Mucus Ur Culture Indicated? Urine Glucose COVID-19 Source SARS-CoV-2 (PCR)
--- NOTE | 2021-03-12 18:00 | NUR.NOTE ---
[facility] arrives to patient transport. Patient requests brief be changed. Tolerates movement well. Candace care performed, clean, dry brief placed.Nursing Note:
== END 2021-03-12 18:09 | disposition other institution (70) ==
PROVIDERS: Registered Nurse Emergency; Student in an Organized Health Care Education/Training Program; Emergency Provider Physician Assistant; PCP Family Medicine
DX: N39.0 Urinary tract infection, site not specified (principal); B96.1 Klebsiella pneumoniae [K. pneumoniae] as the cause of diseases classified elsewhere; K65.1 Peritoneal abscess; R79.1 Abnormal coagulation profile; K66.8 Other specified disorders of peritoneum; K56.609 Unspecified intestinal obstruction, unspecified as to partial versus complete obstruction; G35 Multiple sclerosis; Z20.822 Contact with and (suspected) exposure to COVID-19; Z03.818 Encounter for observation for suspected exposure to other biological agents ruled out; Z87.440 Personal history of urinary (tract) infections
CPT/HCPCS: 36415; 51701; 74177; 80053; 82550; 87040; 87077; 87635; 96361; 96365; 96375; 99284; 99285; 71260; 81003; 81015; 83605; 83735; 85025; 85610; 85730; 87086; 87186; J0131; J0696; J1200; J2405; J3490

== ENCOUNTER → 2021-04-22 12:49 | Outpatient (BNVA) | payer MEDICARE, MEDICAID, SELFPAY | PROVIDERS: PCP Family Medicine; Visit Provider Psychiatry & Neurology Neurology | DX: G35 Multiple sclerosis (principal); G82.20 Paraplegia, unspecified; E11.40 Type 2 diabetes mellitus with diabetic neuropathy, unspecified; M62.838 Other muscle spasm | CPT/HCPCS: 99214 ==

== ENCOUNTER 2021-06-18 23:16 | Outpatient (REF) | payer MEDICARE, MEDICAID, SELFPAY ==
[2021-06-18 23:49] LABS: Anion Gap 5.6 mmol/L (3-11); BUN 15 mg/dL (7-18); CO2 30.4 mmol/L (21.0-32.0); CREATININE 0.6 mg/dL (0.55-1.02); Calcium 8.7 mg/dL (8.5-10.1); Chloride 106 mmol/L (98-107); Glucose 117 mg/dL (74-106); Potassium 3.7 mmol/L (3.5-5.1); Sodium 142 mmol/L (136-145); TSH 2.56 uIU/mL (0.36-3.74)
== END 2021-06-18 23:17 | disposition home or self-care (01) ==
LOC: LBN 23:16
PROVIDERS: PCP Family Medicine; Visit Provider Family Medicine
DX: E11.9 Type 2 diabetes mellitus without complications (principal); G35 Multiple sclerosis
CPT/HCPCS: 80048; 84443

== ENCOUNTER 2021-09-26 20:32 | Inpatient (IN) | payer MEDICARE, MEDICAID, SELFPAY ==
[2021-09-26] VITALS (28 sets, daily range): BP systolic 91–112; BP diastolic 57–70; PULSE 119–135; RESP 9–41; TEMP 37.1; O2SAT 89–96
--- NOTE | 2021-09-26 20:45 | RT.EKG_ITS ---
APPROVED REPORT Exam: Resting ECG Reason for Exam: chest pain Patient Location: E HR:124 bpm ECG Measurements Heart Rate 124 AXIS IN 151 P 49 QRSd 88 QRS 20 QT 291 T -21 QTc 418 Conclusion Sinus tachycardia...rate> 99 Physician: extreme artifact even after multiple attempts. no stemi
--- NOTE | 2021-09-26 20:45 | DI.CT_ITS ---
Exam(s) CT ABDOMEN PELVIS W EXAM: CT ABDOMEN PELVIS W CLINICAL HISTORY: Nausea vomiting. TECHNIQUE: Imaging Protocol: Axial computed tomography images with coronal and sagittal reformatted images were created and reviewed CONTRAST MATERIAL: Intravenous: Omnipaque 350 Contrast volume:100 ml Oral: yes / no COMPARISON: CT CT CHEST/ABD/PEL W from 03/12/2021 FINDINGS: ABDOMEN: Lung Bases: Dependent changes. Liver: Normal density. No measurable mass. Gallbladder and biliary tract: No radiodense calculus or dilation. Pancreas: Normal density, no abnormal calcifications or inflammatory process. Spleen: Normal. Kidneys: Normal size, contour and axis. No radiodense stones or obstructive uropathy. No masses seen. Adrenal glands: No masses seen. Abdominal Aorta: Abdominal portion non-dilated. PELVIS: Bladder: Not well evaluated due to presence of Melendez catheter. Bowel: Evaluation of bowel limited without oral contrast. Large quantity of stool in the rectum. Mi ld anal thickening. Appendix normal. No free air or free fluid. Collection of air seen anterior t o the rectum and near the region of the vaginal cuff. This is difficult to separate from adjacent [place] wel. Peritoneal cavity: No ascites, collection or mesenteric inflammatory response. Bones: Chronic right hip and pelvic deformities.. Reproductive organs: Status post hysterectomy. Lymph nodes: Unremarkable. Soft tissues: Increased density in gluteal region. No obvious overlying ulcer. Impression: Large quantity of stool in the rectum. No evidence of obstruction. Question of a gas collection anterior to the rectum versus adjacent bowel. No definite abscess. No free air. RADIATION DOSE DELIVERED: 855.07mGy.cm Total DLP DATA REPOSITORY: All CT scans at this facility are submitted to the National Radiology Data Registry (NRDR) Dose Index Registry (DIR) with the [employer] ([employer]). RADIATION OPTIMIZATION: All CT scans at this facility use at least one of these dose optimization te chniques: automated exposure control; mA and/or kV adjustment per patient size (includes targeted exa ms where dose is matched to clinical indication); or iterative reconstruction.
--- NOTE | 2021-09-26 21:15 | DI.RAD_ITS ---
Exam(s) XR CHEST 2V PA LATERAL EXAM: XR CHEST 2V PA LATERAL CLINICAL HISTORY: fever TECHNIQUE: 2D digital imaging was performed. COMPARISON: CT CT CHEST/ABD/PEL W from 03/12/[address] CHEST PE CTA from 09/27/2021 FINDINGS: The patient's hand projects over the right lower lung field. The lungs are not well inflated. The l ungs appear clear where visualized. The heart size is normal. IMPRESSION: No acute abnormality. DATA REPOSITORY: RADIATION DOSE DELIVERED:
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
[2021-09-26 21:34] LABS: Lactate 1.8 mmol/L (0.6-1.4)
[2021-09-26 21:34] LABS: Clarity Clear (Clear); Leukocyte Esterase Trace (Negative); Nitrite Negative (Negative); pH 6.5 (5-8)
[2021-09-26 21:35] LABS: Bilirubin Negative (Negative); Blood Moderate (Negative); Glucose Negative (Negative); Ketones Negative (Negative); Urobilinogen 0.2 EU/dL (Up TO 0.2)
[2021-09-26 21:38] LABS: Abs Immature Grans 0.01 10^3/uL (0.0-0.06); Absolute Basophil Count 0.02 10^3/uL (0.0-0.2); Absolute Eosinophil Count 0.03 10^3/uL (0.0-0.7); Absolute Lymphocyte Count 0.21 10^3/uL (1.2-3.4); Absolute Monocyte Count 0.21 10^3/uL (0.1-0.8); Absolute Neutrophil Count 5.02 10^3/uL (1.2-6.7); Basophils % 0.4; Eosinophils % 0.5; HCT 40.6 % (36.0-46.0); HGB 13.1 g/dL (11.2-15.7); Immature Grans % 0.2; Lymphocytes % 3.8; MCH 30.5 pg (27.0-33.0); MCHC 32.3 % (32.0-36.0); MCV 94.4 fL (80-95); MPV 11.3 fL (8.0-11.0); Monocytes % 3.8; Neutrophils % 91.3; Platelet Count 168 10^3/uL (130-400); RDW 15.3 % (11.7-14.6); RDW-SD 52.5 fL
[2021-09-26 21:41] LABS: WBC 20-50 HPF (0-5)
[2021-09-26 21:42] LABS: Bacteria Few HPF (Negative); C & S Indicated? Yes; Casts Negative LPF (Negative); Crystals Negative HPF (Negative); Epithelial Cells Few HPF (Negative); Mucus Trace (Negative)
[2021-09-26] MEDS: Normal Saline 1,000 ML 1000 ML IV (21:52)
[2021-09-26] MEDS: DOXYCYCLINE 100 MG in Normal Saline 100 ML IVPB (21:52)
[2021-09-26 21:58] LABS: ALT 34 U/L (14-59); AST 17 U/L (15-37); Albumin 3.1 g/dL (3.4-5.0); Alkaline Phosphatase 112 U/L (46-116); Anion Gap 8.3 mmol/L (3-11); BUN 15 mg/dL (7-18); Bilirubin, Total 0.5 mg/dL (0.2-1.0); CO2 23.7 mmol/L (21.0-32.0); CREATININE 0.7 mg/dL (0.55-1.02); Calcium 7.9 mg/dL (8.5-10.1); Chloride 102 mmol/L (98-107); Glucose 132 mg/dL (74-106); Magnesium 1.5 mg/dL (1.8-2.4); Potassium 3.7 mmol/L (3.5-5.1); Sodium 134 mmol/L (136-145); Troponin I < 50 ng/L (<or=60)
[2021-09-26 22:45] LABS: COVID-19 PCR Positive (Negative); Influenza A PCR Negative (Negative); Influenza B PCR Negative (Negative); RSV PCR Negative (Negative); Source Nasopharynx
--- NOTE | 2021-09-26 23:00 | DI.CT_ITS ---
Exam(s) CT CHEST PE CTA EXAM: CT CHEST PE CTA CLINICAL HISTORY: Elevated D-Dimer. TECHNIQUE: Imaging Protocol: Axial CT angiography was performed with multi-slice acquisition and mu lti-planar reconstructions as well as axial, coronal and sagittal MIP reconstructions. CONTRAST MATERIAL: Intravenous: Omnipaque 350 Contrast volume:100 ml COMPARISON: CT CT CHEST/ABD/PEL W from 03/12/2021 FINDINGS: Pulmonary Arteries: No evidence of filling defect to suggest pulmonary emboli. Tracheobronchial tree: Patent where visualized. Mediastinum and April: No dominant adenopathy or fluid collection. Twelve by 6 millimeter density, sim ilar to bone, in the upper esophagus, consistent with foreign body. May represent a tablet. Pulmonary parenchyma: Expiratory changes. Posterior basilar atelectasis. No consolidation or domina nt measurable mass. Pleura: No effusion or pneumothorax. Heart: The heart is not dilated. No coronary artery calcifications are seen. Aorta: Thoracic aorta non-dilated. No aneurysm. No dissection. Upper abdomen: Unremarkable. Bones: Unremarkable for age. IMPRESSION: No evidence of pulmonary embolism. Foreign body in upper esophagus. Basilar atelectasis. RADIATION DOSE DELIVERED: 390.75mGy.cm Total DLP DATA REPOSITORY: All CT scans at this facility are submitted to the National Radiology Data Registry (NRDR) Dose Index Registry (DIR) with the [employer] ([employer]). RADIATION OPTIMIZATION: All CT scans at this facility use at least one of these dose optimization te chniques: automated exposure control; mA and/or kV adjustment per patient size (includes targeted exa ms where dose is matched to clinical indication); or iterative reconstruction.
[2021-09-26] MEDS: AZTREONAM 2,000 MG in Normal Saline 100 ML 200 MG IVPB (23:08)
[2021-09-26] MEDS: Magnesium Oxide 400 MG TAB PO (23:08)
[2021-09-26 23:11] LABS: D-Dimer 1795 ng/mlFEU (<500)
[2021-09-27] VITALS (42 sets, daily range): BP systolic 85–133; BP diastolic 55–91; PULSE 78–129; RESP 7–38; TEMP 36.1–37.9; O2SAT 92–98
--- NOTE | 2021-09-27 00:07 | ED.PROG_ITS ---
Date of service: 09/27/21 Time of Service: 00:08 Medical Decision Making The case was signed out to me by my colleague Richard Obregon. Please refer to at time of signout his HPI, physical exam, assessment and plan. The patient had already been diagnosed with COVID, urinary tract infection, mild sepsis. Broad- spectrum antibiotics already been started. A D-dimer was ordered which was positive and so a CTA was ordered to rule out pulmonary embolism, at which point the patient was signed out. CT scan results have returned, demonstrates evidence of pulmonary infiltrate, but no evidence of pulmonary embolism. There is a foreign dense foreign body noted in the esophagus, however clinically and radiographically the patient shows no signs of obstruction. Patient did take a magnesium pill prior to the CTA, this is likely the cause. I did reassess the patient and she shows no signs of obstruction whatsoever. I did request that nursing staff give additional water to help with this pill go down to prevent pill esophagitis. The patient's heart rate remains in the low 110's, blood pressure remains in the high 90s systolic. Patient's mentation is good. No indication for pressors at this time. Patient stable for admission currently, and demonstrates no signs of respiratory failure. Discussed the case with Dr. Salinas, he agrees with the assessment and plan. I have extensively reviewed the treatment plan with the patient. I have addressed all patient concerns at this time. I have also discussed the plan with the admitting physician and they agree with the current assessment and plan and have agreed to assume responsibility for the patient. All parties demonstrate verbal understanding and agreement with our assessment and plan at this time. The documentation in this chart was dictated using [employer] dictation software. Please excuse any dictation errors. Patient's heart rate FINDINGS: Tubes, catheters and devices: Melendez catheter in place. Lungs: Bibasilar linear opacities of atelectasis and/or fibrosis. Liver: Unremarkable. No mass. Gallbladder and bile ducts: No calcified stones. No ductal dilation. Pancreas: Unremarkable. No ductal dilation. Spleen: Unremarkable. No splenomegaly. Adrenal glands: Normal. No mass. Kidneys and ureters: Unremarkable. No hydronephrosis. Stomach and bowel: Moderate amount of stool within distal colon and rectum, less conspicuous than on the prior study. Evaluation of the GI tract is limited without oral contrast. Grossly, no mechanical bowel obstruction. No mucosal thickening. Focus of gas above the vaginal wall, intraluminal GI tract versus within vaginal canal, difficult to ascertain. There is no free intraperitoneal air. Appendix: No evidence of appendicitis. Intraperitoneal space: See Stomach and bowel finding. Arteries: Unremarkable. No abdominal aortic aneurysm. Lymph nodes: No enlarged lymph nodes. Urinary bladder: Interval resolution of previously seen cystitis. Reproductive: The uterus is not identified. Left adnexal cyst, 2.0 centimetres in diameter. Bones/joints: Right hip joint dislocation, seen on the prior study. Soft tissues: Mild infiltration of the subcutaneous adipose tissues overlying the left ischial bone, seen on the prior study, as well, correlate clinically to rule out decubitus ulceration. IMPRESSION: No evidence for mechanical bowel obstruction. No evidence for colitis or diverticulitis. Focus of air within the pelvis anterior to the rectum, intraluminal gas versus within vaginal canal, difficult to ascertain, seen on the prior study, as well. Melendez catheter in place. Status post hysterectomy. Left adnexal cyst, 2.0 centimetres in diameter. If further evaluation of the pelvic contents is desired, consider correlation with pelvic ultrasound. Thank you for allowing us to participate in the care of your patient. Dictated and Authenticated by: Ji Lozano MD 09/27/2021 12:06 AM Eastern Time ([place] & [place]) FINDINGS: Pulmonary arteries: No evidence of pulmonary embolism. Aorta: Aorta is unremarkable. No evidence of dissection. No evidence of aneurysm. Lungs: Dense atelectasis versus small bilateral lower lobe dependent infiltrates. Pleural spaces: Unremarkable. No pneumothorax. No pleural effusion. Heart: Unremarkable. No cardiomegaly. No pericardial effusion. Mediastinal space: 13 x 7 mm hyperdense ingested foreign body is seen in proximal esophagus on series 8, image 133. No evidence of esophageal obstruction. Lymph nodes: Unremarkable. No enlarged lymph nodes. Bones/joints: Unremarkable. No acute fracture. Soft tissues: Unremarkable. IMPRESSION: 1. No evidence of pulmonary embolism. 2. Dense atelectasis versus small bilateral lower lobe dependent infiltrates. 3. 13 x 7 mm hyperdense ingested foreign body is seen in proximal esophagus on series 8, image 133. No evidence of esophageal obstruction. Thank you for allowing us to participate in the care of your patient. Dictated and Authenticated by: Gem Toussaint MD 09/27/2021 2:01 AM Eastern Time ([place] & [place]) Sign Out Sign Out Data: Sign Out Comment: Patient pending CTA of chest for elevated D-dimer, radiologist interpretation of CT abdomen pelvis, and further disposition and treatment Last updated by Armaan Obregon [employer] at 09/26/21 23:33 Discharge Plan Disposition Patient Disposition: [facility] INPATIENT Condition: Critical Discharge Details Clinical Impression: Sepsis, UTI (urinary tract infection), COVID, Pulmonary infiltrate Primary Care Provider: Steve Dudley ED Provider: Armaan Obregon Home Meds and New Rx's Prescriptions: No Action levothyroxine 25 mcg tablet 25 mcg PO DAILY 0RF melatonin 5 mg capsule 5 mg PO HS 0RF polyethylene glycol 3350 17 gram/dose powder 17 g PO DAILY 0RF pregabalin 75 mg capsule 75 mg PO BID 0RF docusate sodium 100 mg capsule 200 mg PO BID 0RF psyllium Powder 5 tbsp PO DAILY 0RF Rx Instructions: mix into at least 8 oz of water or juice before administering ascorbate calcium (vitamin C) 500 mg tablet 500 mg PO DAILY 0RF baclofen 10 mg tablet 20 mg PO TID 0RF magnesium hydroxide [Milk of Magnesia] 400 MG/5 ML suspension 30 ml PO PRN 0RF apixaban 2.5 mg Tablet 2.5 mg PO BID 0RF acetaminophen [Tylenol] 325 MG tablet 650 mg PO Q6H PRN PRN0RF clonazepam [Klonopin] 1 mg tablet 0.5 mg PO QPM 0RF vitamin B complex Tablet 1 tab PO DAILY 0RF cholecalciferol (vitamin D3) [Vitamin D3] 10 mcg (400 unit) capsule 1,000 unit PO DAILY 0RF escitalopram oxalate 10 mg tablet 10 mg PO DAILY 0RF methenamine hippurate [Hiprex] 1 gram Tablet 1 g PO BID 0RF
--- NOTE | 2021-09-27 00:07 | DI.VRAD_ITS ---
PROCEDURE INFORMATION: Exam: CT Abdomen And Pelvis With Contrast Exam date and time: 09/26/2021 10:36 PM Age: 40 years old Clinical indication: Nausea and vomiting; Additional info: Nausea, vomiting TECHNIQUE: Imaging protocol: Computed tomography of the abdomen and pelvis with contrast. Radiation optimization: All CT scans at this facility use at least one of these dose optimization techniques: automated exposure control; mA and/or kV adjustment per patient size (includes targeted exams where dose is matched to clinical indication); or iterative reconstruction. Contrast material: OMNI 350; Contrast volume: 100 ml; Contrast route: INTRAVENOUS (IV); COMPARISON: CT CHEST/ABD/PEL W 03/12/2021 1:35 PM FINDINGS: Tubes, catheters and devices: Melendez catheter in place. Lungs: Bibasilar linear opacities of atelectasis and/or fibrosis. Liver: Unremarkable. No mass. Gallbladder and bile ducts: No calcified stones. No ductal dilation. Pancreas: Unremarkable. No ductal dilation. Spleen: Unremarkable. No splenomegaly. Adrenal glands: Normal. No mass. Kidneys and ureters: Unremarkable. No hydronephrosis. Stomach and bowel: Moderate amount of stool within distal colon and rectum, less conspicuous than on the prior study. Evaluation of the GI tract is limited without oral contrast. Grossly, no mechanical bowel obstruction. No mucosal thickening. Focus of gas above the vaginal wall, intraluminal GI tract versus within vaginal canal, difficult to ascertain. There is no free intraperitoneal air. Appendix: No evidence of appendicitis. Intraperitoneal space: See Stomach and bowel finding. Arteries: Unremarkable. No abdominal aortic aneurysm. Lymph nodes: No enlarged lymph nodes. Urinary bladder: Interval resolution of previously seen cystitis. Reproductive: The uterus is not identified. Left adnexal cyst, 2.0 centimetres in diameter. Bones/joints: Right hip joint dislocation, seen on the prior study. Soft tissues: Mild infiltration of the subcutaneous adipose tissues overlying the left ischial bone, seen on the prior study, as well, correlate clinically to rule out decubitus ulceration. IMPRESSION: No evidence for mechanical bowel obstruction. No evidence for colitis or diverticulitis. Focus of air within the pelvis anterior to the rectum, intraluminal gas versus within vaginal canal, difficult to ascertain, seen on the prior study, as well. Melendez catheter in place. Status post hysterectomy. Left adnexal cyst, 2.0 centimetres in diameter. If further evaluation of the pelvic contents is desired, consider correlation with pelvic ultrasound. Dictated and Authenticated by: Ji Lozano MD. Ordering:PATTI Crook MD
--- NOTE | 2021-09-27 00:07 | DI.VRAD_ITS ---
PROCEDURE INFORMATION: Exam: XR Chest Exam date and time: 09/26/2021 10:50 PM Age: 40 years old Clinical indication: Fever TECHNIQUE: Imaging protocol: XR of the chest. Views: 2 views. COMPARISON: CT CHEST/ABD/PEL W 03/12/2021 1:35 PM FINDINGS: Lungs: Right lung base is obscured by the overlying hand, possibly contracted patient. Visualized lungs clear of infiltrates. Pleural spaces: Unremarkable. No pleural effusion. No pneumothorax. Heart/Mediastinum: Unremarkable. No cardiomegaly. Bones/joints: Unremarkable. IMPRESSION: No infiltrates or effusions. Dictated and Authenticated by: Ji Lozano MD. Ordering:PATTI Crook MD
[2021-09-27] MEDS: VANCOMYCIN 1,000 MG in Normal Saline 250 ML 166.6666 MG IVPB (00:16)
[2021-09-27] MEDS: Omnipaque 350 MG/ML 100 ML BTL IJ (00:18)
[2021-09-27] MEDS: Normal Saline 500 ML IV (01:25)
--- NOTE | 2021-09-27 02:03 | DI.VRAD_ITS ---
PROCEDURE INFORMATION: Exam: CTA Chest With Contrast Exam date and time: 09/27/2021 12:08 AM Age: 40 years old Clinical indication: Other: Elevated d dimer TECHNIQUE: Imaging protocol: Computed tomographic angiography of the chest with contrast. 3D rendering (Not supervised by radiologist): MIP and/or 3D reconstructed images were created by the technologist. Radiation optimization: All CT scans at this facility use at least one of these dose optimization techniques: automated exposure control; mA and/or kV adjustment per patient size (includes targeted exams where dose is matched to clinical indication); or iterative reconstruction. Contrast material: OMNI 350; Contrast volume: 100 ml; Contrast route: INTRAVENOUS (IV); COMPARISON: CT CHEST/ABD/PEL W 03/12/2021 1:35 PM FINDINGS: Pulmonary arteries: No evidence of pulmonary embolism. Aorta: Aorta is unremarkable. No evidence of dissection. No evidence of aneurysm. Lungs: Dense atelectasis versus small bilateral lower lobe dependent infiltrates. Pleural spaces: Unremarkable. No pneumothorax. No pleural effusion. Heart: Unremarkable. No cardiomegaly. No pericardial effusion. Mediastinal space: 13 x 7 mm hyperdense ingested foreign body is seen in proximal esophagus on series 8, image 133. No evidence of esophageal obstruction. Lymph nodes: Unremarkable. No enlarged lymph nodes. Bones/joints: Unremarkable. No acute fracture. Soft tissues: Unremarkable. IMPRESSION: 1. No evidence of pulmonary embolism. 2. Dense atelectasis versus small bilateral lower lobe dependent infiltrates. 3. 13 x 7 mm hyperdense ingested foreign body is seen in proximal esophagus on series 8, image 133. No evidence of esophageal obstruction. Dictated and Authenticated by: Gem Toussaint MD. Ordering:PATTI Crook MD
[2021-09-27] MEDS: REMDESIVIR 200 MG in Normal Saline 250 ML 250 MG IVPB (02:06)
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
[2021-09-27] MEDS: MAGNESIUM SULFATE 4 GM/100 ML BAG IVPB (06:30)
[2021-09-27] MEDS: Normal Saline 1,000 ML 150 ML IV (06:33)
[2021-09-27] MEDS: Normal Saline Flush 10 ML SYR IVP ×3 (06:33→16:12)
[2021-09-27] MEDS: Levothyroxine 25 MCG TAB PO (06:44)
[2021-09-27] MEDS: Acetaminophen 325 MG TAB 650 MG PO (06:44)
[2021-09-27 07:19] LABS: TSH (W/Ref FT4) 0.65 uIU/mL (0.36-3.74)
[2021-09-27] MEDS: Apixaban 2.5 MG TAB PO ×2 (08:16→20:21)
[2021-09-27] MEDS: Baclofen 10 MG TAB 20 MG PO ×3 (08:16→20:19)
[2021-09-27] MEDS: Escitalopram 10 MG TAB PO (08:16)
[2021-09-27] MEDS: Polyethylene Glycol 3350 17 GM PACKET PO ×2 (08:16→20:19)
[2021-09-27] MEDS: Pregabalin 25 MG CAP 75 MG PO ×2 (08:17→20:20)
[2021-09-27 08:44] LABS: Abs Immature Grans 0.01 10^3/uL (0.0-0.06); Absolute Basophil Count 0.01 10^3/uL (0.0-0.2); Absolute Eosinophil Count 0.01 10^3/uL (0.0-0.7); Absolute Lymphocyte Count 0.56 10^3/uL (1.2-3.4); Absolute Monocyte Count 0.25 10^3/uL (0.1-0.8); Absolute Neutrophil Count 2.56 10^3/uL (1.2-6.7); Basophils % 0.3; Eosinophils % 0.3; HCT 38.9 % (36.0-46.0); HGB 12.4 g/dL (11.2-15.7); Immature Grans % 0.3; Lymphocytes % 16.5; MCH 30.1 pg (27.0-33.0); MCHC 31.9 % (32.0-36.0); MCV 94.4 fL (80-95); Monocytes % 7.4; Neutrophils % 75.2; Platelet Count 145 10^3/uL (130-400); RBC 4.12 10^6/uL (3.93-5.22); RDW 15.5 % (11.7-14.6); RDW-SD 54.1 fL
[2021-09-27 08:52] LABS: INR 1.2 (0.9-1.1); Prothrombin Time 11.6 sec (9.3-11.0)
[2021-09-27 09:00] LABS: BUN 10 mg/dL (7-18); C-Reactive Protein 10.27 mg/dL (0.0-0.3); CREATININE 0.7 mg/dL (0.55-1.02); Calcium 7.5 mg/dL (8.5-10.1); Chloride 104 mmol/L (98-107); Creatine Kinase 664 U/L (26-192); Glucose 99 mg/dL (74-106); Magnesium 3.9 mg/dL (1.8-2.4); Potassium 3.5 mmol/L (3.5-5.1); Sodium 136 mmol/L (136-145)
[2021-09-27 09:27] LABS: D-Dimer 2455 ng/mlFEU (<500); Ferritin 143 ng/mL (8-252)
[2021-09-27 09:53] LABS: Procalcitonin 0.8 ng/mL
[2021-09-27] MEDS: DOXYCYCLINE 100 MG in Normal Saline 100 ML IVPB ×2 (09:53→21:46)
[2021-09-27] MEDS: VANCOMYCIN/WATER (PEG) 1 GM/200 ML BAG IV ×2 (09:53→16:13)
--- NOTE | 2021-09-27 15:08 | PDOC.CMIN ---
- If Service Date Differs Date of service: 09/27/21 Time of Service: 15:08 Care Management Initial Assess REASON FOR HOSPITALIZATION:: Covid, pneumonia, UTI PAST MEDICAL HISTORY/PAST SURGICAL HISTORY:: All Active Problems . Pneumonia (Acute). Sepsis (Acute). COVID (Acute). Pulmonary infiltrate (Acute). Burning with urination (Acute). Full code status (Chronic). wants aggressive care. Lonely (Acute). Dysarthria (Acute). S/P partial glossectomy (Acute). History of tongue cancer (Acute). Wheelchair bound (Chronic). requires Christy lift to transfer; cannot stand and pivot. penitentiary resident (Acute). Palliative care patient (Acute). Pulmonary infiltrates on CXR (Acute). Abdominal pain (Acute). H/O: hysterectomy (Chronic). Spasticity (Acute). Diabetic neuropathy (Acute). Poor intravenous access (Acute). Blood loss anemia (Acute). Abnormal uterine bleeding (Acute). Breakthrough bleeding on Depo-Provera (Acute). SIRS (systemic inflammatory response syndrome) (Acute). UTI (urinary tract infection) (Acute). Mass of tongue (Acute 06/29/17). Muscle spasticity (Acute 06/29/14). Neurogenic bladder (Acute 06/29/14). Neuropathic pain (Acute 06/29/14). Obesity (Acute 06/29/17). Obstructive sleep apnea (adult) (pediatric) (Acute 06/29/17). Rosacea (Acute 06/29/14). Type 2 diabetes mellitus with hyperglycemia (Chronic 11/06/16). Urinary incontinence (Acute 05/12/17). Urinary retention (Acute 05/12/17). 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 Hemochromatosis (Chronic). DVT (deep venous thrombosis) (Chronic). Tongue cancer (Acute). PEG tube malfunction (Acute). Disposition (Acute). Oral thrush (Acute). Feeding by G-tube (Acute). MS (multiple sclerosis) (Chronic). Neurogenic bladder (Chronic). Cellulitis and abscess of neck (Acute). 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 Diabetes mellitus (Chronic). Alteration in swallowing function (Chronic). History of deep venous thrombosis (Chronic). 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 Multiple sclerosis (Chronic). secondary progressive; s/p mitoxantrone x4 doses ([id number]). Medical History . Breakthrough bleeding on Depo-Provera. onset 08/2017. Pt uses adult diapers for incontinence. No clots. Catatonia. Surgical History . History of skin graft. Patient states that he harvested from tendons and vessels from her right forearm and then took skin graft from her thigh to cover the defect on the right forearm as a treated her squamous cell carcinoma of her tongue with resection. History of tracheostomy. This was temporary after aspiration when the patient was younger as a complication of her MS. S/P percutaneous endoscopic gastrostomy (PEG) tube placement. This is now not present have been removed patient able to swallow PREVIOUS FUNCTIONAL STATUS/SOCIAL/FAMILY SUPPORTS:: Ethel has been at [facility] for the last four years due to her advancing MS. Her Guardian is Jacy Townsend ([phone]) and her mother is Kaushik Quiroga ([phone]), both of [facility]. She's been in contact with both of them during her admission. CURRENT FUNCTIONAL STATUS:: Ethel was lying in bed when CM met with her. She is alert, oriented and easy to engage in conversation. She shares that she has been at [facility] X 4 years. She is originally from [facility]. ADVANCE DIRECTIVES:: None on file, CM will offer forms Has patient been provided with info about the portal/API?: Yes Did the patient sign up for the portal?: No CODE STATUS:: Full Code INSURANCE COVERAGE / FINANCIAL ISSUES:: Medicaid. Medicare CURRENT HOME/COMMUNITY SERVICES/EQUIPMENT:: Resides at [facility] PRIMARY CARE PHYSICIAN:: Steve Dudley PATIENT/FAMILY EDUCATION NEEDS:: Review discharge instructions, limitations, medications and plan to follow up with community providers. ask me three. TRANSPORTATION:: Anticipate Ethel will transport via EMS, due to her limitations in mobility. PLAN:: Ethel requires IV hydration and close monitoring. Anticipate, Ethel will discharge back to [facility] when medically ready per provider. She will transport via EMS vs. Facility van, depending on ability to sit in a wheel chair. She will follow up with community providers and discharge plan of care as prescribed.
--- NOTE | 2021-09-27 16:07 | PGE_ITS ---
Date of Service Date of service: 09/27/21 Time of Service: 16:07 Subjective Subjective Interval history since last seen: Patient seen in brief follow up. She states her breathing is better. She thinks she may have had a pill stuck in her esophagus but she is confident that it has now gone down. Endorses no cough at all. Denies dizziness, chest pain, shortness of breath, nausea. Constipated. Her COVID precautions have been discontinued as her original covid test was positive on 09/08. On physical exam, she appears comfortable laying flat on room air. Her abdomen is soft and distended with bowel sounds. She is CTAB anteriorly. Will rx IS/acapella. Intensify bowel regimen. Continue current abx. Await MRSA nares. Objective Last Vital Signs Temp 36.8 C 09/27/21 11:53 Pulse 93 H 09/27/21 11:53 Resp 19 09/27/21 11:53 BP 90/55 L 09/27/21 11:53 Pulse Ox 97 09/27/21 11:53 Laboratory Results - last 24 hr 09/26/21 09/26/21 09/26/21 21:15 21:22 21:22 WBC RBC Hgb Hct MCV MCH MCHC RDW Plt Count MPV Immature Gran % Neutrophils % Lymphocytes % Monocytes % Eosinophils % Basophils % Nucleated RBC % Absolute Neutrophils Absolute Lymphocytes Absolute Monocytes Absolute Eosinophils Absolute Basophils PT INR D-Dimer VBG Lactate 1.8 H Sodium 134 L Potassium 3.7 Chloride 102 Carbon Dioxide 23.7 Anion Gap 8.3 BUN 15 Creatinine 0.7 Estimated GFR/1.73 m2 >= 60.00 Glucose 132 H Calcium 7.9 L Magnesium 1.5 L Ferritin Total Bilirubin 0.5 AST 17 ALT 34 Alkaline Phosphatase 112 Creatine Kinase Troponin I < 50 C-Reactive Protein Total Protein 7.0 Albumin 3.1 L Procalcitonin TSH Urine Color Yellow Urine Clarity Clear Urine pH 6.5 Ur Specific [place] 1.020 Urine Protein 100 H Urine Ketones Negative Urine Blood Moderate H Urine Nitrite Negative Urine Bilirubin Negative Urine Urobilinogen 0.2 Ur Leukocyte Esterase Trace H Urine RBC 10-20 H Urine WBC 20-50 H Ur Epithelial Cells Few Urine Crystals Negative Urine Bacteria Few Urine Casts Negative Urine Mucus Trace Ur Culture Indicated? Yes Urine Glucose Negative COVID-19 Source SARS-CoV-2 (PCR) Influenza Type A (PCR) Influenza Type B (PCR) RSV (PCR) 09/26/21 09/26/21 09/26/21 21:22 21:22 21:22 WBC 5.50 RBC 4.30 Hgb 13.1 Hct 40.6 MCV 94.4 MCH 30.5 MCHC 32.3 RDW 15.3 H Plt Count 168 MPV 11.3 H Immature Gran % 0.2 Neutrophils % 91.3 Lymphocytes % 3.8 Monocytes % 3.8 Eosinophils % 0.5 Basophils % 0.4 Nucleated RBC % 0.0 Absolute Neutrophils 5.02 Absolute Lymphocytes 0.21 L Absolute Monocytes 0.21 Absolute Eosinophils 0.03 Absolute Basophils 0.02 PT INR D-Dimer 1795 H VBG Lactate Sodium Potassium Chloride Carbon Dioxide Anion Gap BUN Creatinine Estimated GFR/1.73 m2 Glucose Calcium Magnesium Ferritin Total Bilirubin AST ALT Alkaline Phosphatase Creatine Kinase Troponin I C-Reactive Protein Total Protein Albumin Procalcitonin TSH 0.65 Urine Color Urine Clarity Urine pH Ur Specific [place] Urine Protein Urine Ketones Urine Blood Urine Nitrite Urine Bilirubin Urine Urobilinogen Ur Leukocyte Esterase Urine RBC Urine WBC Ur Epithelial Cells Urine Crystals Urine Bacteria Urine Casts Urine Mucus Ur Culture Indicated? Urine Glucose COVID-19 Source SARS-CoV-2 (PCR) Influenza Type A (PCR) Influenza Type B (PCR) RSV (PCR) 09/26/21 09/27/21 09/27/21 21:31 08:30 08:30 WBC RBC Hgb Hct MCV MCH MCHC RDW Plt Count MPV Immature Gran % Neutrophils % Lymphocytes % Monocytes % Eosinophils % Basophils % Nucleated RBC % Absolute Neutrophils Absolute Lymphocytes Absolute Monocytes Absolute Eosinophils Absolute Basophils PT INR D-Dimer VBG Lactate Sodium 136 Potassium 3.5 Chloride 104 Carbon Dioxide 24.0 Anion Gap 8.0 BUN 10 Creatinine 0.7 Estimated GFR/1.73 m2 >= 60.00 Glucose 99 Calcium 7.5 L Magnesium 3.9 H Ferritin 143 Total Bilirubin AST ALT Alkaline Phosphatase Creatine Kinase 664 H Troponin I C-Reactive Protein 10.27 H Total Protein Albumin Procalcitonin 0.8 TSH Urine Color Urine Clarity Urine pH Ur Specific [place] Urine Protein Urine Ketones Urine Blood Urine Nitrite Urine Bilirubin Urine Urobilinogen Ur Leukocyte Esterase Urine RBC Urine WBC Ur Epithelial Cells Urine Crystals Urine Bacteria Urine Casts Urine Mucus Ur Culture Indicated? Urine Glucose COVID-19 Source Nasopharynx SARS-CoV-2 (PCR) Positive A Influenza Type A (PCR) Negative Influenza Type B (PCR) Negative RSV (PCR) Negative 09/27/21 09/27/21 08:30 08:30 WBC 3.40 L D RBC 4.12 Hgb 12.4 Hct 38.9 MCV 94.4 MCH 30.1 MCHC 31.9 L RDW 15.5 H Plt Count 145 MPV 11.0 Immature Gran % 0.3 Neutrophils % 75.2 Lymphocytes % 16.5 Monocytes % 7.4 Eosinophils % 0.3 Basophils % 0.3 Nucleated RBC % 0.0 Absolute Neutrophils 2.56 Absolute Lymphocytes 0.56 L Absolute Monocytes 0.25 Absolute Eosinophils 0.01 Absolute Basophils 0.01 PT 11.6 H INR 1.2 H D-Dimer 2455 H VBG Lactate Sodium Potassium Chloride Carbon Dioxide Anion Gap BUN Creatinine Estimated GFR/1.73 m2 Glucose Calcium Magnesium Ferritin Total Bilirubin AST ALT Alkaline Phosphatase Creatine Kinase Troponin I C-Reactive Protein Total Protein Albumin Procalcitonin TSH Urine Color Urine Clarity Urine pH Ur Specific [place] Urine Protein Urine Ketones Urine Blood Urine Nitrite Urine Bilirubin Urine Urobilinogen Ur Leukocyte Esterase Urine RBC Urine WBC Ur Epithelial Cells Urine Crystals Urine Bacteria Urine Casts Urine Mucus Ur Culture Indicated? Urine Glucose COVID-19 Source SARS-CoV-2 (PCR) Influenza Type A (PCR) Influenza Type B (PCR) RSV (PCR)
--- NOTE | 2021-09-27 16:08 | IN_ITS ---
Date of service: 09/27/21 Time of Service: 15:45 PT Notes Visit Reasons: Covid Infection,Pneumonia,UTI Inpatient Physical Therapy Evaluation Date: 09/27/21 Referring Doctor: Chen Higgins PT Orders: PT CONSULT: limited ability Precautions: Standard Patient Profile/Admitting Diagnosis: Patient is a 40 year old female resident of [facility] admitted for acute management COVID, pneumonia, and UTI PMHX: All Active Problems . Pneumonia (Acute). Sepsis (Acute). COVID (Acute). Pulmonary infiltrate (Acute). Burning with urination (Acute). Full code status (Chronic). wants aggressive care. Lonely (Acute). Dysarthria (Acute). S/P partial glossectomy (Acute). History of tongue cancer (Acute). Wheelchair bound (Chronic). requires Christy lift to transfer; cannot stand and pivot. half-way resident (Acute). Palliative care patient (Acute). Pulmonary infiltrates on CXR (Acute). Abdominal pain (Acute). H/O: hysterectomy (Chronic). Spasticity (Acute). Diabetic neuropathy (Acute). Poor intravenous access (Acute). Blood loss anemia (Acute). Abnormal uterine bleeding (Acute). Breakthrough bleeding on Depo-Provera (Acute). SIRS (systemic inflammatory response syndrome) (Acute). UTI (urinary tract infection) (Acute). Mass of tongue (Acute 06/29/17). Muscle spasticity (Acute 06/29/14). Neurogenic bladder (Acute 06/29/14). Neuropathic pain (Acute 06/29/14). Obesity (Acute 06/29/17). Obstructive sleep apnea (adult) (pediatric) (Acute 06/29/17). Rosacea (Acute 06/29/14). Type 2 diabetes mellitus with hyperglycemia (Chronic 11/06/16). Urinary incontinence (Acute 05/12/17). Urinary retention (Acute 05/12/17). 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 Hemochromatosis (Chronic). DVT (deep venous thrombosis) (Chronic). Tongue cancer (Acute). PEG tube malfunction (Acute). Disposition (Acute). Oral thrush (Acute). Feeding by G-tube (Acute). MS (multiple sclerosis) (Chronic). Neurogenic bladder (Chronic). Cellulitis and abscess of neck (Acute). 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 Diabetes mellitus (Chronic). Alteration in swallowing function (Chronic). History of deep venous thrombosis (Chronic). 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 Multiple sclerosis (Chronic). secondary progressive; s/p mitoxantrone x4 doses ([id number]). Medical History . Breakthrough bleeding on Depo-Provera. onset 08/2017. Pt uses adult diapers for incontinence. No clots. Catatonia. Surgical History . History of skin graft. Patient states that he harvested from tendons and vessels from her right forearm and then took skin graft from her thigh to cover the defect on the right forearm as a treated her squamous cell carcinoma of her tongue with resection. History of tracheostomy. This was temporary after aspiration when the patient was younger as a complication of her MS. S/P percutaneous endoscopic gastrostomy (PEG) tube placement. This is now not present have been removed patient able to swallow Social History/Home Situation: Patient is a resident of [facility]. She reports that she typically transfers Via Christy to a power chair, which allows her to navigate independently. Equipment Owned/DME: Power chair, which is not present at time of consultation Subjective: Ethel states that she is feeling somewhat better. Objective: General Observation: Resting in bed with IV in left upper extremity, Melendez catheter in place. Mental Status: A and O x3 Pain: Denies ROM: Right Upper Extremity: Shoulder flexion was 90 degrees. She is able to demonstrate full opening of the hand, although demonstrates significant flexor tone at rest. She also has visible atrophy of the hand intrinsics. Left Upper Extremity: Shoulder flexion was 150 degrees. She is able to demonstrate full opening of the hand, although demonstrates significant flexor tone at rest. She also has visible atrophy of the hand intrinsics. Right Lower Extremity: Patient rests in 100 degrees hip flexion, 70 degrees internal rotation and 120 degrees of knee flexion. Left Lower Extremity: Patient has a flaccid left lower extremity, positioned in neutral hip and knee extension, and 60 degrees of plantarflexion. Strength: Right Upper Extremity: Grossly 3-/5 Left Upper Extremity: Grossly 3-/5 Right Lower Extremity: Patient has no active movement of the lower extremities Left Lower Extremity: Patient has no active movement of the lower extremities Bed Mobility/Transfers: Rolling, mod assist to the left, max assist to the right Supine to sit: Unable Bed to chair: Christy lift Gait: Unable Balance: Static Sitting: Unable Dynamic Sitting: Unable Static Standing: Unable Dynamic Standing: Unable Special Tests: Mobility Limitations Standardized Measure [facility] 6 clicks Basic Mobility Inpatient Short Form: Raw Score: 6 CMS Score: 100% deficit Informed Consent/Education: Patient instructed in purpose of PT consult and plan of care. Treatment: Today's session consisted of evaluation. Patient has significant tone through the right lower extremity, and contractures into hip and knee flexion and hip internal rotation, with extremely limited range available with passive stretching. Assessment: Patient is a 40 year old female referred to physical therapy services with the diagnosis of pneumonia, COVID, and UTI with PT consult requested for limited ability. Patient presents with chronic mobility deficits related to her complicated medical history, and particularly related to her significant limitations in strength and range of motion related to MS patient is a long-term resident [facility], transfers via Christy lift at baseline. She does not require any further PT intervention in acute care setting at this time, as she is at baseline level of function She currently demonstrated by the following impairment level findings: 1. Flexion contracture right lower extremity 2. Neurogenic tone 3. Decreased strength bilateral lower extremities 4. Decreased trunk control Impairments are contributing to the following functional limitations: 1. Dependent for transfers 2. Dependent for bed mobility 3. Non-ambulatory 4. Dependent for positioning of lower extremities 5. Unable to sit and straight back chair due to limited trunk control Patient is assessed as High [id number] complexity based on the following: History: 37-year-old female admitted for medical management of UTI, pneumonia, and COVID. Patient is a long-term resident of [facility], and is dependent for all mobility and self-care due to her weakness and tone related to MS. She also has multiple medical comorbidities as noted above. Examination: Functional limitations as noted above Presentation: Unstable due to ongoing medical issues Decision Making: High complexity Plan of Care/Treatment Plan: No further PT intervention indicated in acute care setting. Patient will require transfer to chair Via Christy lift, with recommendation of obtaining patient's power chair if she will be here for any length of time, to allow for upright positioning for improved pulmonary function. DISCHARGE RECOMMENDATIONS: Patient to return to [facility] TREATMENT CODE/TIME:20 minutes 15:45-16:05 pm ([id number]) [facility] Disclaimer: This note was created using [employer] voice recognition software. It was reviewed for major content. However, there may be multiple small discrepancies and errors due to the voice recognition aspects of the software.
[2021-09-27] MEDS: Normal Saline 1,000 ML 100 ML IV (17:56)
[2021-09-27] MEDS: Bisacodyl 10 MG SUPP PR ×2 (18:25→18:26)
[2021-09-27] MEDS: clonazePAM 1 MG TAB 0.5 MG PO (20:21)
[2021-09-27] MEDS: Melatonin 3 MG TAB 6 MG PO (21:47)
--- NOTE | 2021-09-27 23:14 | NUR.NOTE ---
Nursing Note: 09/27/2021 at 1600 IV medication Aztreonam was not available. Vancomycin was due also at 1600 and and administered at 1613. I was advised to administer the Aztreonam following the completion of the Vancomycin.
[2021-09-28] VITALS (9 sets, daily range): BP systolic 94–133; BP diastolic 60–91; PULSE 72–101; RESP 16–22; TEMP 36.4–37.8; O2SAT 94–99
[2021-09-28] MEDS: VANCOMYCIN/WATER (PEG) 1 GM/200 ML BAG IV (00:02)
[2021-09-28] MEDS: Normal Saline 1,000 ML 100 ML IV ×2 (02:12→15:11)
[2021-09-28] MEDS: Levothyroxine 25 MCG TAB PO (06:16)
[2021-09-28 06:42] LABS: Abs Immature Grans 0.01 10^3/uL (0.0-0.06); Absolute Basophil Count 0.02 10^3/uL (0.0-0.2); Absolute Eosinophil Count 0.06 10^3/uL (0.0-0.7); Absolute Lymphocyte Count 0.59 10^3/uL (1.2-3.4); Absolute Neutrophil Count 2.44 10^3/uL (1.2-6.7); Basophils % 0.6; Eosinophils % 1.8; HCT 35.2 % (36.0-46.0); HGB 10.8 g/dL (11.2-15.7); Immature Grans % 0.3; Lymphocytes % 17.3; MCH 29.8 pg (27.0-33.0); MCHC 30.7 % (32.0-36.0); MCV 97.2 fL (80-95); MPV 11.1 fL (8.0-11.0); Monocytes % 8.8; Neutrophils % 71.2; Platelet Count 114 10^3/uL (130-400); RBC 3.62 10^6/uL (3.93-5.22); RDW 15.3 % (11.7-14.6); RDW-SD 55.3 fL; WBC 3.42 10^3/uL (4.4-10.8)
[2021-09-28 07:12] LABS: C-Reactive Protein 7.62 mg/dL (0.0-0.3); Magnesium 2.1 mg/dL (1.8-2.4)
[2021-09-28 07:13] LABS: ALT 32 U/L (14-59); AST 39 U/L (15-37); Albumin 2.5 g/dL (3.4-5.0); Alkaline Phosphatase 81 U/L (46-116); Anion Gap 10.9 mmol/L (3-11); BUN 6 mg/dL (7-18); Bilirubin, Direct 0.1 mg/dL (0.0-0.2); Bilirubin, Total 0.4 mg/dL (0.2-1.0); CO2 20.1 mmol/L (21.0-32.0); CREATININE 0.5 mg/dL (0.55-1.02); Calcium 7.1 mg/dL (8.5-10.1); Chloride 109 mmol/L (98-107); Glucose 67 mg/dL (74-106); Hemoglobin A1C 5.3 % (<5.7); Potassium 3.2 mmol/L (3.5-5.1); Sodium 140 mmol/L (136-145); Total Protein 5.8 g/dL (6.4-8.2)
[2021-09-28 07:15] LABS: Vancomycin, Trough 24.6 ug/mL (10.0-20.0)
[2021-09-28 08:17] LABS: Creatine Kinase 849 U/L (26-192)
[2021-09-28] MEDS: Acetaminophen 325 MG TAB 650 MG PO (09:15)
[2021-09-28] MEDS: Baclofen 10 MG TAB 20 MG PO (09:16)
[2021-09-28] MEDS: Apixaban 2.5 MG TAB PO ×2 (09:16→20:36)
[2021-09-28] MEDS: Calcium Carbonate 1.5 GM TAB PO ×2 (09:17→20:36)
[2021-09-28] MEDS: Escitalopram 10 MG TAB PO (09:17)
[2021-09-28] MEDS: VANCOMYCIN 750 MG in Normal Saline 250 ML 166.667 MG IVPB (09:18)
[2021-09-28] MEDS: Pregabalin 25 MG CAP 75 MG PO (09:18)
[2021-09-28] MEDS: Normal Saline Flush 10 ML SYR IVP ×3 (09:25→15:11)
[2021-09-28] MEDS: DOXYCYCLINE 100 MG in Normal Saline 100 ML IVPB ×2 (11:28→20:37)
[2021-09-28] MEDS: Baclofen 10 MG TAB 30 MG PO ×2 (14:40→20:36)
[2021-09-28] MEDS: Pregabalin 100 MG CAP PO ×2 (14:40→20:36)
--- NOTE | 2021-09-28 17:02 | W.PM.PROGNOT ---
Date of Service Date of service: 09/28/21 Time of Service: 17:02 Assessment and Plan Assessment and plan (1) Sepsis: Status: Acute Assessment and plan: Multifactorial - due to PNA and possibly also a UTI, present on admission. Blood cultures with NGTD. Urine C&S is with <100,000 organisms, so UTI is actually less likely. MRSA nares negative. Abx adjusted to aztreonam/doxycycline. Continue IVF. CRP is trending down. Continue to monitor it and the procalcitonin. (2) COVID: Status: Ruled-out Assessment and plan: Initially, COVID positive on 08/09. Her cycling time on COVID PCR was >30. Her positive covid test is unlikely to represent an ungoing COVID-19 disease. Her airborne precautions and remdesivir have been discontinued. (3) Pneumonia: Status: Acute Assessment and plan: As above (4) UTI (urinary tract infection): Status: Acute Assessment and plan: I am not truly convinced she has a UTI. Abx as above Await speciation. (5) Multiple sclerosis: Status: Chronic Assessment and plan: Pain related to spasticity is better since adjustment of doses of baclofen and lyrica. Worsening spasticity yesterday could have resulted in CPK elevations we are seeing (not true rhabdomyolysis). Continue lyrica, baclofen. PT/OT consulted. Avoid overheating. (6) DVT (deep venous thrombosis): Status: Chronic Assessment and plan: Prior to admission. Continue therapeutic eliquis. (7) Hypoglycemia: Status: Acute Assessment and plan: Advance diet. (8) Elevated CPK: Status: Acute Assessment and plan: No evidence of rhabdomyolysis. Remains on IVF. Will recheck in am. Possibly due to spasticity of MS. (9) Discharge planning issues: Status: Acute Assessment and plan: Full code Continues to require hospitalization Subjective Subjective Interval history since last seen: Constipation has resolved - had 3 BMs yesterday and 1 today. Denies dizziness, chest pain, shortness of breath, states nausea is better. Overall feels much better. Does report pain in her left hip because at home I have an air mattress and here I don't. She declined an air mattress here. States that the lyrica and baclofen dose corrections helped a lot. She does not want me to change her current pain medication regimen. Has been sweating a lot. States her MS symptoms are worse when she feels hot and she feels hot. Her skin feels itchy. Exam Narrative Exam Narrative: General: Pleasant middle-aged female, A&Ox3, diaphoretic, appears mildly uncomfortable, BLEs contracted, able to move BUEs but with decreased dexterity HEENT: EOMI, MMM Heart: RRR, tachycardic, no m/r/g Lungs: CTAB Abdomen: soft, nontender, nondistended Extremities: See general. trace edema BLEs, ecchymosis RUE. Objective Last Vital Signs Temp 37.2 C 09/28/21 15:20 Pulse 92 H 09/28/21 15:20 Resp 16 09/28/21 15:20 BP 125/78 09/28/21 15:20 Pulse Ox 97 09/28/21 15:20 Laboratory Results - last 24 hr 09/28/21 09/28/21 09/28/21 06:30 06:44 06:44 WBC 3.42 L RBC 3.62 L Hgb 10.8 L Hct 35.2 L MCV 97.2 H MCH 29.8 MCHC 30.7 L RDW 15.3 H Plt Count 114 L MPV 11.1 H Immature Gran % 0.3 Neutrophils % 71.2 Lymphocytes % 17.3 Monocytes % 8.8 Eosinophils % 1.8 Basophils % 0.6 Nucleated RBC % 0.0 Absolute Neutrophils 2.44 Absolute Lymphocytes 0.59 L Absolute Monocytes 0.30 Absolute Eosinophils 0.06 Absolute Basophils 0.02 Sodium Potassium Chloride Carbon Dioxide Anion Gap BUN Creatinine Estimated GFR/1.73 m2 Glucose Hemoglobin A1c Calcium Magnesium 2.1 Total Bilirubin Conjugated Bilirubin AST ALT Alkaline Phosphatase Creatine Kinase C-Reactive Protein 7.62 H Total Protein Albumin Vancomycin Trough 24.6 H* 09/28/21 09/28/21 09/28/21 06:44 06:44 06:44 WBC RBC Hgb Hct MCV MCH MCHC RDW Plt Count MPV Immature Gran % Neutrophils % Lymphocytes % Monocytes % Eosinophils % Basophils % Nucleated RBC % Absolute Neutrophils Absolute Lymphocytes Absolute Monocytes Absolute Eosinophils Absolute Basophils Sodium 140 Potassium 3.2 L Chloride 109 H Carbon Dioxide 20.1 L Anion Gap 10.9 BUN 6 L Creatinine 0.5 L Estimated GFR/1.73 m2 >= 60.00 Glucose 67 L Hemoglobin A1c 5.3 Calcium 7.1 L Magnesium Total Bilirubin 0.4 Conjugated Bilirubin 0.1 AST 39 H ALT 32 Alkaline Phosphatase 81 Creatine Kinase 849 H C-Reactive Protein Total Protein 5.8 L Albumin 2.5 L Vancomycin Trough
[2021-09-28] MEDS: clonazePAM 1 MG TAB 0.5 MG PO (20:36)
[2021-09-28] MEDS: Melatonin 3 MG TAB 6 MG PO (20:36)
[2021-09-29] MEDS: Normal Saline 1,000 ML 100 ML IV (03:09)
[2021-09-29 03:50] VITALS: BP 105/69; PULSE 78; RESP 17; TEMP 36.8; O2SAT 98
[2021-09-29 07:32] LABS: Abs Immature Grans 0.01 10^3/uL (0.0-0.06); HCT 32.1 % (36.0-46.0); HGB 10.6 g/dL (11.2-15.7); MCH 30.1 pg (27.0-33.0); MCV 91.2 fL (80-95); MPV 11.2 fL (8.0-11.0); Platelet Count 118 10^3/uL (130-400); RBC 3.52 10^6/uL (3.93-5.22); RDW 15.4 % (11.7-14.6); RDW-SD 51.1 fL; WBC 3.16 10^3/uL (4.4-10.8)
[2021-09-29] MEDS: Levothyroxine 25 MCG TAB PO (07:46)
[2021-09-29 07:49] LABS: Anion Gap 6.2 mmol/L (3-11); BUN 5 mg/dL (7-18); CO2 25.8 mmol/L (21.0-32.0); CREATININE 0.4 mg/dL (0.55-1.02); Chloride 111 mmol/L (98-107); Creatine Kinase 399 U/L (26-192); Glucose 81 mg/dL (74-106); Magnesium 1.9 mg/dL (1.8-2.4); Sodium 143 mmol/L (136-145)
[2021-09-29 07:54] LABS: Potassium 2.9 mmol/L (3.5-5.1)
[2021-09-29 07:59] LABS: Absolute Eosinophil Count 0.06 10^3/uL (0.0-0.7); Absolute Lymphocyte Count 0.85 10^3/uL (1.2-3.4); Absolute Monocyte Count 0.06 10^3/uL (0.1-0.8); Absolute Neutrophil Count 2.05 10^3/uL (1.2-6.7); Atypical Lymphocytes % 1; Diff Comment Manual Differential; Other Cells % 4; RBC Morphology Normal
[2021-09-29 08:10] VITALS: BP 112/74; PULSE 76; RESP 16; TEMP 36.4; O2SAT 97
[2021-09-29 08:27] LABS: Procalcitonin 0.6 ng/mL
[2021-09-29] MEDS: Escitalopram 10 MG TAB 20 MG PO (08:46)
[2021-09-29] MEDS: Apixaban 2.5 MG TAB PO ×2 (08:46→20:23)
[2021-09-29] MEDS: Ascorbic Acid 500 MG TAB PO (08:46)
[2021-09-29] MEDS: Pregabalin 100 MG CAP PO ×3 (08:46→20:23)
[2021-09-29] MEDS: Baclofen 10 MG TAB 30 MG PO ×3 (08:46→20:23)
[2021-09-29] MEDS: Cholecalciferol (Vitamin D3) 1,000 UNIT TAB 2000 UNITS PO (08:46)
[2021-09-29] MEDS: Calcium Carbonate 1.5 GM TAB PO ×2 (08:46→20:23)
[2021-09-29] MEDS: Vitamins B Comp w/C TAB 1 TAB PO (08:47)
[2021-09-29] MEDS: MAGNESIUM SULFATE 1 GM/100 ML BAG IVPB (09:20)
[2021-09-29] MEDS: DOXYCYCLINE 100 MG in Normal Saline 100 ML IVPB (10:43)
[2021-09-29] MEDS: Potassium Chloride 20 MEQ TABCR 40 MEQ PO ×3 (10:43→20:22)
[2021-09-29 11:40] VITALS: BP 127/83; PULSE 78; RESP 18; TEMP 37.2; O2SAT 100
--- NOTE | 2021-09-29 13:26 | NUR.NOTE ---
Patient did report IVsirte tenderness and itching during and after doxy infusion.Nursing Note:
[2021-09-29 15:45] VITALS: BP 120/80; PULSE 76; RESP 18; TEMP 36.5; O2SAT 100
--- NOTE | 2021-09-29 16:02 | W.PM.PROGNOT ---
Date of Service Date of service: 09/29/21 Time of Service: 16:38 Assessment and Plan Assessment and plan (1) Sepsis: Status: Acute Assessment and plan: Multifactorial - due to PNA and possibly also a UTI, present on admission. Clinically pneumonia is supsected due to hypoxia and tachypnea on presentation as well as high risk of aspiration. Blood cultures with NGTD. Urine C&S is with <100,000 organisms, so UTI is actually less likely. MRSA nares negative. D/c doxycycline per patient's request. Continue aztreonam. Continue to trend procalcitonin. D/c IVF. CRP is trending down. Continue to monitor it and the procalcitonin. (2) COVID: Status: Ruled-out Assessment and plan: Initially, COVID positive on 08/09. Her cycling time on COVID PCR was >30. Her positive covid test is unlikely to represent an ungoing COVID-19 disease. Her airborne precautions and remdesivir have been discontinued. (3) Pneumonia: Status: Acute Assessment and plan: As above (4) UTI (urinary tract infection): Status: Acute Assessment and plan: I am not truly convinced she has a UTI. Abx as above The specimen is polymicrobial. (5) Multiple sclerosis: Status: Chronic Assessment and plan: Pain related to spasticity is better since adjustment of doses of baclofen and lyrica. Continue lyrica, baclofen. PT/OT consulted. Avoid overheating. Obtain speech therapy evaluation. (6) DVT (deep venous thrombosis): Status: Chronic Assessment and plan: Prior to admission. Continue therapeutic eliquis. I d/c'ed SCDs. (7) Hypoglycemia: Status: Resolved Assessment and plan: Tolerating diet. (8) Elevated CPK: Status: Resolved Assessment and plan: No evidence of rhabdomyolysis. IVF d/smith as CPK elevation has resolved. Possibly due to spasticity of MS. (9) Discharge planning issues: Status: Acute Assessment and plan: Full code Continues to require hospitalization Subjective Subjective Interval history since last seen: Ms Salamanca states that she is itchy and thinks it is because of the doxycycline. She requested to nursing today that it be discontinued. She denied dizziness, chest pain, states her shortness of breath is better. Denies cough. States that sometimes things go down the wrong pipe - like when she takes too big of a sip of water - but she is able to cough them up. We discussed how I thought it would be a good idea for her to be seen by speech therapy. She agreed. Denies n/v. States things just don't taste good because of the taste of antibiotics. Denies abdominal pain. She feels like her tongue and teeth are growing hair despite her brushing her teeth. She reports feeling bored. Normally she uses a tablet to communicate with her daughter who will be graduating in October - but she has not had access to a tablet here so far. She also spends a lot of her days normally in a chair. She does not like being confined to a bed. We agreed that we would work on both of these things here. She is bored. She is anxious that [facility] and that they may not let her go to her daughter's graduation and to the memorial of her best friend who was killed last week. Exam Narrative Exam Narrative: General: Pleasant middle-aged female, A&Ox3, rubbing her eyes (itching), BLEs contracted, able to move BUEs but with decreased dexterity HEENT: EOMI, MMM Heart: RRR, no m/r/g Lungs: CTAB Abdomen: soft, nontender, nondistended Extremities trace edema BLEs, ecchymosis RUE. Objective Last Vital Signs Temp 37.2 C 09/29/21 11:40 Pulse 78 09/29/21 11:40 Resp 18 09/29/21 11:40 BP 127/83 09/29/21 11:40 Pulse Ox 100 09/29/21 11:40 Laboratory Results - last 24 hr 09/28/21 09/29/21 09/29/21 06:44 06:15 07:00 WBC RBC Hgb Hct MCV MCH MCHC RDW Plt Count MPV Immature Gran % Neutrophils % Lymphocytes % Atypical Lymphs % Monocytes % Eosinophils % Basophils % Other Cells % Nucleated RBC % Absolute Neutrophils Absolute Lymphocytes Absolute Monocytes Absolute Eosinophils Absolute Basophils RBC Morphology Sodium 143 Potassium 2.9 L Chloride 111 H Carbon Dioxide 25.8 Anion Gap 6.2 BUN 5 L Creatinine 0.4 L Estimated GFR/1.73 m2 >= 60.00 Glucose 81 Calcium 8.0 L Magnesium 1.9 Creatine Kinase 399 H Procalcitonin 0.6 Add-On Test Request Cancelled 09/29/21 07:00 WBC 3.16 L RBC 3.52 L Hgb 10.6 L Hct 32.1 L MCV 91.2 MCH 30.1 MCHC 33.0 RDW 15.4 H Plt Count 118 L MPV 11.2 H Immature Gran % 0.0 Neutrophils % 65.0 Lymphocytes % 26.0 Atypical Lymphs % 1 Monocytes % 2.0 Eosinophils % 2.0 Basophils % 0.0 Other Cells % 4 Nucleated RBC % 0.0 Absolute Neutrophils 2.05 Absolute Lymphocytes 0.85 L Absolute Monocytes 0.06 L Absolute Eosinophils 0.06 Absolute Basophils 0.00 RBC Morphology Normal Sodium Potassium Chloride Carbon Dioxide Anion Gap BUN Creatinine Estimated GFR/1.73 m2 Glucose Calcium Magnesium Creatine Kinase Procalcitonin Add-On Test Request
[2021-09-29] MEDS: Cetirizine 10 MG TAB PO (17:04)
[2021-09-29 19:35] VITALS: BP 121/80; PULSE 80; RESP 15; TEMP 37.4; O2SAT 94
[2021-09-29] MEDS: clonazePAM 1 MG TAB 0.5 MG PO (20:23)
[2021-09-29] MEDS: Melatonin 3 MG TAB 6 MG PO (21:27)
[2021-09-29 23:10] VITALS: BP 107/70; PULSE 72; RESP 18; TEMP 36.4; O2SAT 94
[2021-09-29] MEDS: Normal Saline Flush 10 ML SYR IVP (23:54)
[2021-09-30 03:35] VITALS: BP 96/64; PULSE 82; RESP 18; TEMP 36.4; O2SAT 94
[2021-09-30] MEDS: Levothyroxine 25 MCG TAB PO (05:12)
[2021-09-30 06:01] LABS: Vitamin D 25 Total 53.3 ng/mL (30-100)
[2021-09-30 06:21] LABS: Abs Immature Grans 0.02 10^3/uL (0.0-0.06); Absolute Basophil Count 0.02 10^3/uL (0.0-0.2); Absolute Eosinophil Count 0.25 10^3/uL (0.0-0.7); Absolute Monocyte Count 0.31 10^3/uL (0.1-0.8); Basophils % 0.5; Eosinophils % 6.6; HCT 35.3 % (36.0-46.0); HGB 11.3 g/dL (11.2-15.7); Immature Grans % 0.5; Lymphocytes % 31.9; MCH 30.1 pg (27.0-33.0); MCV 93.9 fL (80-95); MPV 10.9 fL (8.0-11.0); Monocytes % 8.2; Neutrophils % 52.3; Platelet Count 122 10^3/uL (130-400); RBC 3.76 10^6/uL (3.93-5.22); RDW 15.5 % (11.7-14.6); RDW-SD 53.4 fL; WBC 3.76 10^3/uL (4.4-10.8)
[2021-09-30 06:30] LABS: Absolute Neutrophil Count 1.97 10^3/uL (1.2-6.7)
[2021-09-30 06:41] LABS: Anion Gap 5.1 mmol/L (3-11); BUN 8 mg/dL (7-18); C-Reactive Protein 3.93 mg/dL (0.0-0.3); CO2 25.9 mmol/L (21.0-32.0); CREATININE 0.5 mg/dL (0.55-1.02); Calcium 8.4 mg/dL (8.5-10.1); Chloride 107 mmol/L (98-107); Glucose 70 mg/dL (74-106); Magnesium 1.9 mg/dL (1.8-2.4); Potassium 4.5 mmol/L (3.5-5.1); Sodium 138 mmol/L (136-145)
--- NOTE | 2021-09-30 08:26 | DI.RAD_ITS ---
Exam(s) XR ABDOMEN FLAT PLATE EXAM: 2D digital imaging was performed. CLINICAL HISTORY: ?gas collection seen on CT - ?in the bowel. COMPARISON: CT CT ABDOMEN PELVIS W from 09/26/2021 TECHNIQUE: Supine views of the abdomen was performed. Three images were obtained. FINDINGS: LUNG BASES: Clear. BOWEL GAS PATTERN: Nondistended. No evidence of bowel obstruction. FREE AIR: No definite free air is seen on the supine images. The area mention on the CT scan on 09/26 is probably best evaluated on repeat CT scan. CALCIFICATIONS: No radiopaque calcifications. OSSEOUS STRUCTURES: Chronic pelvic changes. Left convex scoliosis of the lumbar spine. OTHER FINDINGS: Surgical clip in the left upper quadrant of the abdomen. IMPRESSION: 1. The area of concern in the pelvis is likely best appreciated on a repeat CT scan. 2. No evidence of bowel obstruction. DATA REPOSITORY: RADIATION DOSE DELIVERED:
[2021-09-30] MEDS: Cetirizine 10 MG TAB PO (08:42)
[2021-09-30] MEDS: Calcium Carbonate 1.5 GM TAB PO ×2 (08:42→19:31)
[2021-09-30] MEDS: Ascorbic Acid 500 MG TAB PO (08:42)
[2021-09-30] MEDS: Baclofen 10 MG TAB 30 MG PO ×3 (08:42→19:31)
[2021-09-30] MEDS: Escitalopram 10 MG TAB 20 MG PO (08:42)
[2021-09-30] MEDS: Apixaban 2.5 MG TAB PO ×2 (08:42→19:31)
[2021-09-30] MEDS: Vitamins B Comp w/C TAB 1 TAB PO (08:42)
[2021-09-30] MEDS: Pregabalin 100 MG CAP PO ×3 (08:42→19:31)
[2021-09-30] MEDS: Cholecalciferol (Vitamin D3) 1,000 UNIT TAB 2000 UNITS PO (08:42)
[2021-09-30] MEDS: Normal Saline Flush 10 ML SYR IVP ×3 (08:42→19:31)
[2021-09-30 08:54] VITALS: BP 92/61; PULSE 81; RESP 16; O2SAT 98
[2021-09-30 12:15] VITALS: BP 105/70; PULSE 86; RESP 20; TEMP 36.8; O2SAT 96
[2021-09-30] MEDS: cefTRIAXone 1 GM/50 ML BAG IVPB (14:47)
--- NOTE | 2021-09-30 16:11 | PGE_ITS ---
Date of Service Date of service: 09/30/21 Time of Service: 16:21 Assessment and Plan Assessment and plan (1) Sepsis: Status: Acute Assessment and plan: Multifactorial - due to PNA and possibly also a UTI, present on admission. Clinically pneumonia is supsected due to hypoxia and tachypnea on presentation as well as high risk of aspiration, even though her imaging (in her dehydrated state) did not show it. I doubt that the pelvic air bubble seen on CT is a cause of her infection (it would not explain her respiratory sx on presentation) and it was seen on prior imaging. I think this is something that should be followed up as outpatient as it does not reflect free air. Blood cultures with NGTD. Urine C&S is with <100,000 organisms, so UTI is actually less likely. MRSA nares negative. Change aztreonam to ceftriaxone as the patient has actually tolerated this in the past. Continue to trend procalcitonin (it is improving). (2) COVID: Status: Ruled-out Assessment and plan: Initially, COVID positive on 08/09. Her cycling time on COVID PCR was >30. Her positive covid test is unlikely to represent an ungoing COVID-19 disease. Her airborne precautions and remdesivir have been discontinued. (3) Pneumonia: Status: Acute Assessment and plan: As above (4) UTI (urinary tract infection): Status: Ruled-out Assessment and plan: I am not truly convinced she has a UTI. Abx as above The specimen is polymicrobial. I had a conversation with the patient about possibly considering a suprapubic catheter (the fact that she has had to wear diapers at the [place] [facility] is distressing to her). She is not interested in it and she had previously thought about it. (5) Multiple sclerosis: Status: Chronic Assessment and plan: Pain related to spasticity is better since adjustment of doses of baclofen and lyrica. Continue lyrica, baclofen. PT/OT consulted. Avoid overheating. Obtain speech therapy evaluation. Consult psychiatry for her symptoms of depression related to her diagnosis and disability. Consult palliative care to discuss her overall goals and how to improve her quality of life (the patient's ideal living environment is not in a [place] [facility], per my conversation with her). (6) DVT (deep venous thrombosis): Status: Chronic Assessment and plan: Prior to admission. Continue therapeutic eliquis. I d/c'ed SCDs. (7) Hypoglycemia: Status: Resolved Assessment and plan: Tolerating diet. (8) Elevated CPK: Status: Resolved Assessment and plan: No evidence of rhabdomyolysis. IVF d/smith as CPK elevation has resolved. Possibly due to spasticity of MS. (9) Discharge planning issues: Status: Acute Assessment and plan: Full code Anticipate discharge back to SNF in the next 24-48 hrs Subjective Subjective Interval history since last seen: Ethel is tearful today. She tells me that she is bored and pissed off and frustrated. She is reflecting on her disability and has a hard time being happy. Even achieving small goals does not make her feel better. Nothing makes her feel better. She is anxious not knowing if she will be able to go to her daughter's graduation on October 20. I personally made a phone call to [facility] and spoke to the health information administrator collections representative and nursing leadership about Ethel's concerns, and they reassured me that they would make every effort for her to be able to go to her daughter's graduation. When I said this to Ethel, she was relieved. I provided her with David's phone number (health information administrator collections representative). Ethel otherwise feels better. She denies dizziness, chest pain, shortness of breath, nausea, abdominal pain. Ethel told me that she does, in fact, see a psychotherapist at [facility] - she says this is for about 10 minutes every two weeks. She agrees to talk to Dr Gongora of psychiatry. She says that she is actually doing better now than she did before. I also told Ethel that I thought that talking to palliative care would be a good idea for her. She does not currently see them, she says. Exam Narrative Exam Narrative: General: Pleasant middle-aged female, A&Ox3, rubbing her eyes (itching), BLEs contracted, able to move BUEs but with decreased dexterity HEENT: EOMI, MMM Heart: RRR, no m/r/g Lungs: CTAB Abdomen: soft, nontender, nondistended Extremities trace edema BLEs, ecchymosis RUE. Objective Last Vital Signs Temp 36.8 C 09/30/21 12:15 Pulse 86 09/30/21 12:15 Resp 20 09/30/21 12:15 BP 105/70 09/30/21 12:15 Pulse Ox 96 09/30/21 12:15 Laboratory Results - last 24 hr 09/28/21 09/30/21 09/30/21 06:44 05:23 05:23 WBC 3.76 L RBC 3.76 L Hgb 11.3 Hct 35.3 L MCV 93.9 MCH 30.1 MCHC 32.0 RDW 15.5 H Plt Count 122 L MPV 10.9 Immature Gran % 0.5 Neutrophils % 52.3 Lymphocytes % 31.9 Monocytes % 8.2 Eosinophils % 6.6 Basophils % 0.5 Nucleated RBC % 0.0 Absolute Neutrophils 1.97 Absolute Lymphocytes 1.20 Absolute Monocytes 0.31 Absolute Eosinophils 0.25 Absolute Basophils 0.02 Sodium 138 Potassium 4.5 D Chloride 107 Carbon Dioxide 25.9 Anion Gap 5.1 BUN 8 Creatinine 0.5 L Estimated GFR/1.73 m2 >= 60.00 Glucose 70 L Calcium 8.4 L Magnesium 1.9 C-Reactive Protein 3.93 H 25-OH Vitamin D Total 53.3
[2021-09-30 16:13] VITALS: BP 110/58; PULSE 78; RESP 18; TEMP 36.4; O2SAT 94
--- NOTE | 2021-09-30 16:22 | CMPROGNOTE_ITS ---
- If Service Date Differs Date of service: 09/30/21 Time of Service: 16:22 Care Management Progress Note S/O: Ethel is sad and crying. She expresses several upcoming life events and worries that have added to her sadness. She also frustrated and angry and bored. CM has offered to go to [facility] to get her personal tablet because she wants facebook, however patient declines stating that she doesn't want anyone to go in her room. CM clarified with patient that it would be [facility], however she firmly declines. Unfortunately the hospital tablet does not have FB. Dr. Higgins requested a Dr. Gongora consult and palliative care consult. CM left message at Dr. Gongora's office and will follow up in the morning. A: 41 year old female admitted to [facility] on 09/26/21 for Covid, pneumonia, UTI P: Ethel requires IV hydration and close monitoring. Anticipate, Ethel will discharge back to [facility] when medically ready per provider. She will transport via EMS. She will follow up with community providers and discharge plan of care as prescribed.
--- NOTE | 2021-09-30 18:58 | W.SPSTE ---
Date of service: 09/30/21 Time of Service: 18:30 Subjective Clinical (Bedside) Swallow Evaluation Speech Language Pathology HPI: Pt is a 41 year old female who resides at [facility]; referred for clinical swallow evaluation per Dr Higgins on 09/29 (order received 09/30)? in context of pneumonia, which is suspected to be due to hypoxia and tachypnea on presentation as well as high risk of aspiration.? 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 Currently tolerating a regular/thins diet per chart review. Patient is followed by both Neurology (Dr Francois) and Palliative Care (Dr. Donahue) Patient has been at [facility] for the last four years due to her advancing MS. Her Guardian is Jacy Townsend ([phone]) and her mother is Kaushik Quiroga ([phone]), both of [facility]. She's been in contact with both of them during her admission. Imagin09/26/[address] IMPRESSION: No evidence of pulmonary embolism. Foreign body in upper esophagus. (?tablet) Basilar atelectasis. 09/27/21 Chest CTA w Contrast IMPRESSION: 1. No evidence of pulmonary embolism. 2. Dense atelectasis versus small bilateral lower lobe dependent infiltrates. 3. 13 x 7 mm hyperdense ingested foreign body is seen in proximal esophagus on series 8, image 133. No evidence of esophageal obstruction. Subjective:? Patient states that ?sometimes things go down the wrong pipe - like when she takes too big of a sip of water - but she is able to cough them up.? CANOE INSPECTOR FINAL met with patient and her mother, Kaushik, evening of 09/30 for discussion re: relevant CANOE INSPECTOR FINAL goals of care in context of her complicated medical history including MS, dysphagia (temporary tracheostomy and PEG placement after aspiration when the patient was younger as a complication of her MS, as well as more recent planned tracheostomy in [address] Franklin in ENT at [facility]; also underwent adjuvant radiation treatment to address R tongue SCCa and partial glossectomy with R neck dissection and R forearm flap reconstruction; continues to experience chronic xerostomia and dysgeusia), dysarthria, and cognitive-communication changes which, combined with mobility and fine motor deficits, present as significant barriers to meaningful life participation per patient. Patient is able to feed self independently with Left UE, reports she has participated in OT previously and is not sure how they would help her; CANOE INSPECTOR FINAL encouraged at least being open to OT visit while inpatient. Discussed dysphagia hx in depth with both patient and mother today, including a report of ?FEES during the time of her partial glossectomy. Also discussed possible benefits of trial of SalivaMax (calcium phosphate powder rinse; does require MD script > [email or web address]) and/or various forms of Biotene for management of xerostomia.? PMHx further clarified with chart review from [facility] medical records; patient does not have any documentation of FEES, but instead did have direct laryngoscopy with Jesus Clemons PA-C in ENT: notable findings included ?excessive secretions? in Right BOT and vallecular space; unable to identify/review any recordings or identify more recent relevant head/neck imaging, direct laryngoscopy not performed as of 07/04/21 with most recent ENT follow up visit w Dr. Lemus.? Current recommendation is for VFSE/MBSS either while inpatient at [facility] or as outpatient once d/c to [facility], both of which patient is agreeable to today.? Discussed recommendations with Dr. Higgins on 09/30. Additional Background History: MS Charting (per Neurology Visit 04/22/21) -Relapses: First in 1993 with numbness of R leg. Dx in 1994 when she had LE weakness and numbness, with MRI and VEP consistent with MS. 2-3 relapses per year until 1323-2147. 2009 found enhancing R posterior frontal lesion compared from 2007 - unclear if she was symptomatic at that time or what treatment was done.? Late 2015, she noticed she was leaning to the right more.? MRI stable = secondary progressive MS. -Last MRI/Imaging: Brain MRI Jun 2015 - stable compared to prior in 2009 with no enhancing lesions. -Last TTE: 10/28/16. -Disease Modifying Therapy: Betaseron, Avonex, Copaxone, Mitoxantrone x 4 doses (Apr 2004-Jan 2005; did not slow progression of disease); Cyclophosphamide x 4doses (January-Apr 2008; did not slow progression of disease). None currently. -Bowel/Bladder: self-catheterizations in the past, now able to empty/incontinence; can feel when bladder is empty/full.? Recommended suprapubic catheterization fall 2016, but she declined. Followed by [facility] urology. -Spasticity: Bilateral LE, worse on the R.? Currently on clonazepam 1mg HS? (used up to 2mg daily in the past)? and Baclofen 30mg TID (up to 40mg TID in the past).? Started Botox October [address] [facility] with Dr. Purnima Crawford, initially with good benefit, but effects wore off within 1 year despite increasing doses. -Fatigue: none. Sleep study November 2016??? -Neuropathic pain: Complicated by onset of Diabetes in 2015.? Previous trials: gabapentin caused edema, amitriptyline wore off after 2 years, EMLA cream wore off after 1 year.? Currently on Lyrica 75mg BID. -Mood: Previously stable on Lexapro.? Previously on Celexa.? Episode of severe catatonia in Mar 2017, responded to benzos. -Assistive devices/Ambulation: Wheelchair since 2004. Living in [facility]H. since Mar 2017 when went to correction. OBJECTIVE: Predisposing dysphagia risk factors: MS, History of tracheostomy,? recent COVID19 infection, hx radiation treatment? Clinical signs of possible chronic dysphagia: occasional overt s.s aspiration, ie cough w thin liquids; recent evidence of esophageal stasis per imaging? Precipitating dysphagia risk factors / triggering event: please see above ? Temp: 97.9 F Sp02:97% RR: 16 / room air ? Cranial nerve exam / Oral Motor: Did not address full CNE/OME this date.? CN VII: salivation impaired, chronic xerostomia CN IX/X: onset of swallow - suspect possible delay pharyngeal residue - suspect this is present, R vallecular/BOT space CN XII: bolus preparation/manipulation/control - likely WFL Mastication intact per clinical interview Dentition/Oral Structures/Hygiene: WFL, natural dentition oral hygiene appears adequate-reports consistent and appropriate oral care regimen Language: verbal expression/fluency, naming, repetition, and auditory comprehension WFL Hearing: WFL Mental Status: AAOx3, recall of current events intact Speech: Dysarthria s/p hemiglossectomy in 2018, able to express herself well ? Laryngeal function exam: Secretions: impaired Vocal quality: WFL Pitch range: WFL Cough: (volitional) perceptually WFL ? PO intake Did not address this date Genia Swallow Protocol: DNT Recommendations: Instrumentation:? VFSE/MBSS either while inpatient at [facility] or as outpatient once d/c to [facility] Diet Texture Modification(s): IDDSI Level(s) 0-Thin Liquids, 7- Regular Solids Medication Intake: Whole with 0-Thin Liquids or as tolerated Alter medications only as advised by MD or Pharmacist RISK MANAGEMENT: Oral hygiene BID/2x per day, before/after PO intake using friction with toothbrush on all oral structures as tolerated HOB upright as tolerated; upright for all PO intake. Encourage physical mobility as tolerated. Level of Assistance/Supervision: Independent for all PO intake, assist as needed given UE deficits? Strategies/Adaptations/Assistive Equipment: Small sips/bites, Slow rate of intake Posture/Positioning Needs: Maintain upright position at least 30 minutes after meals, Avoid meals/snacks 2-3 hours prior to reclining/sleeping, Sleep with head of bed elevated to reduce likelihood of nocturnal reflux Specialist referrals: [N/A] Ancillary tests: [N/A] Therapy: CANOE INSPECTOR FINAL to follow while on unit Plan Short Term Goals: 1. Patient will tolerate thin liquids without s/sx aspiration provided training in/use of swallow strategies and aspiration precautions within 1 week. 2. Patient will tolerate level 7 regular solid foods without s/sx aspiration provided training in/use of swallow strategies and aspiration precautions within 1 week. 3. Patient/carepartners will demonstrate understanding of education related to normal vs disordered swallowing, impact of MS on swallow function, relationship between respiration and deglutition, and recommended strategies for minimizing risks of aspiration pna/airway occlusion, including recommendation for updated oropharyngeal swallow imaging (VFSE/MBSS, FEES per availability) Margo Cary MA [facility] INSPECTOR FINAL Speech-Language Pathologist [place]#[phone] Coding Diagnoses Dysphagia? R13.10 CANOE INSPECTOR FINAL CPT Code: 16206 Clinical Swallowing Evaluation Coding
[2021-09-30] MEDS: clonazePAM 1 MG TAB 0.5 MG PO (19:30)
[2021-09-30 20:30] VITALS: BP 110/74; PULSE 88; RESP 16; TEMP 37.3; O2SAT 99
[2021-09-30] MEDS: Melatonin 3 MG TAB 6 MG PO (21:46)
[2021-09-30 23:30] VITALS: BP 112/80; PULSE 85; RESP 16; TEMP 36.1; O2SAT 98
[2021-10-01 03:15] VITALS: BP 122/80; PULSE 86; RESP 16; TEMP 36.2; O2SAT 98
[2021-10-01] MEDS: Levothyroxine 25 MCG TAB PO (06:20)
[2021-10-01 06:52] LABS: Anion Gap 6.2 mmol/L (3-11); BUN 6 mg/dL (7-18); CO2 27.8 mmol/L (21.0-32.0); CREATININE 0.5 mg/dL (0.55-1.02); Calcium 8.5 mg/dL (8.5-10.1); Chloride 104 mmol/L (98-107); Glucose 82 mg/dL (74-106); Magnesium 1.8 mg/dL (1.8-2.4); Potassium 3.7 mmol/L (3.5-5.1); Sodium 138 mmol/L (136-145)
[2021-10-01 07:26] LABS: Procalcitonin 0.6 ng/mL
[2021-10-01 08:50] VITALS: BP 102/71; PULSE 94; RESP 16; TEMP 36.8; O2SAT 96
[2021-10-01] MEDS: Cholecalciferol (Vitamin D3) 1,000 UNIT TAB 2000 UNITS PO (08:53)
[2021-10-01] MEDS: Vitamins B Comp w/C TAB 1 TAB PO (08:54)
[2021-10-01] MEDS: Calcium Carbonate 1.5 GM TAB PO ×2 (08:54→19:48)
[2021-10-01] MEDS: Apixaban 2.5 MG TAB PO ×2 (08:54→19:48)
[2021-10-01] MEDS: Cetirizine 10 MG TAB PO (08:54)
[2021-10-01] MEDS: Ascorbic Acid 500 MG TAB PO (08:54)
[2021-10-01] MEDS: Baclofen 10 MG TAB 30 MG PO ×3 (08:54→19:48)
[2021-10-01] MEDS: Pregabalin 100 MG CAP PO ×3 (08:54→19:48)
[2021-10-01] MEDS: Escitalopram 10 MG TAB 20 MG PO (08:54)
[2021-10-01] MEDS: Normal Saline Flush 10 ML SYR IVP ×3 (08:55→17:10)
--- NOTE | 2021-10-01 08:59 | OT.INIE ---
Occupational Therapy Notes Inpatient Occupational Therapy Evaluation Date: 10/01/21 Referring Doctor:Chen Higgins MD OT Orders: Fall, standard, Full Precautions: Non Urgent PATIENT PROFILE/ADMITTING DIAGNOSIS: Pt is a 41 year old female who was admitted to [facility] for the following dx of elevated CPK, hypoglycemia, pneumonia, sepsis, COVID, pulmonary infiltrate, burning with urine, lonely, dysarthria, s/p partial glossectomy, hx of tongue cancer, abdominal pain, spasticity, diabetic neuropathy, blood loss anemia, SIRS, UTI, mass of tonguw, muscle spasticity, neurogenic bladder, neuropathic pain. Past Medical History: All Active Problems? Pneumonia (Acute) Sepsis (Acute) COVID (Acute) Pulmonary infiltrate (Acute) Burning with urination (Acute) Full code status (Chronic) wants aggressive careLonely (Acute) Dysarthria (Acute) S/P partial glossectomy (Acute) History of tongue cancer (Acute) Wheelchair bound (Chronic) requires Christy lift to transfer; cannot stand and pivotNursing home resident (Acute) Palliative care patient (Acute) Pulmonary infiltrates on CXR (Acute) Abdominal pain (Acute) H/O: hysterectomy (Chronic) Spasticity (Acute) Diabetic neuropathy (Acute) Poor intravenous access (Acute) Blood loss anemia (Acute) Abnormal uterine bleeding (Acute) Breakthrough bleeding on Depo-Provera (Acute) SIRS (systemic inflammatory response syndrome) (Acute) UTI (urinary tract infection) (Acute) Mass of tongue (Acute 06/29/17) Muscle spasticity (Acute 06/29/14) Neurogenic bladder (Acute 06/29/14) Neuropathic pain (Acute 06/29/14) Obesity (Acute 06/29/17) Obstructive sleep apnea (adult) (pediatric) (Acute 06/29/17) Rosacea (Acute 06/29/14) Type 2 diabetes mellitus with hyperglycemia (Chronic 11/06/16) Urinary incontinence (Acute 05/12/17) Urinary retention (Acute 05/12/17) 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) Hemochromatosis (Chronic) DVT (deep venous thrombosis) (Chronic) Tongue cancer (Acute) PEG tube malfunction (Acute) Disposition (Acute) Oral thrush (Acute) Feeding by G-tube (Acute) MS (multiple sclerosis) (Chronic) Neurogenic bladder (Chronic) Cellulitis and abscess of neck (Acute) 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 Breakthrough bleeding on Depo-Provera onset 08/2017. Pt uses adult diapers for incontinence. No clots.Catatonia Surgical History? History of skin graft Patient states that he harvested from tendons and vessels from her right forearm and then took skin graft from her thigh to cover the defect on the right forearm as a treated her squamous cell carcinoma of her tongue with resection.History of tracheostomy This was temporary after aspiration when the patient was younger as a complication of her JESSY/P percutaneous endoscopic gastrostomy (PEG) tube placement This is now not present have been removed patient able to swallow Social History/Home Situation: Pt resides at SNF, she states that she is able to eat (I) and wash her upper body (I) but that she is max (A) for most of her other ADLs. Equipment owned/DME: DME needs met at [facility] SUBJECTIVE: Pt states that she is doing well but notes she is discouraged and trying to be encouraged that this is her life. OBJECTIVE: General Observation: Pleasant, IV in (L) UE, crockett in place, (L) foot pain due to extreme plantar flexion which OT was able to stabilize foot with pillow. Mental Status: A&Ox3 ROM: RUE limited shoulder flexion and elbow ROM L UE limited shoulder flexion and elbow ROM STRENGTH: RUE 2/5 throughout LUE 2/5 throughout FUNCTIONAL MOBILITY/ADLS: BATHING Baseline she states she is Bathing UE (I) UE Bathing LE Max (A) LE DRESSING max (A) at baseline GROOMING Pt requires max (A) With brushing her hair and this is something that she would like to be more (I) with. EATING Pt was eating when OT arrived, she denies the need for further adaptive equipment, OT feels that pt may benefit from cup with cover but pt is able to bring her silverware to her mouth. She was able to (I) cut her food with ideal technique as well. SPECIAL TESTS: Daily Activity Limitations Standardized Measure [facility] AM -PAC ?6 clicks? Daily Activity Inpatient Short Form: Raw score:11 Standardized score: 29.04 CMS score: 70.42% INFORMED CONSENT/EDUCATION: Pt instructed in purpose of OT Consult and plan of care. ASSESSMENT: Patient is a 41-year-old female referred to occupational therapy services with diagnosis of elevated CPK, hypoglycemia, pneumonia, sepsis, COVID, pulmonary infiltrate, burning with urine, lonely, dysarthria, s/p partial glossectomy, hx of tongue cancer, abdominal pain, spasticity, diabetic neuropathy, blood loss anemia, SIRS, UTI, mass of tonguw, muscle spasticity, neurogenic bladder, neuropathic pain. Patient presents with clinical signs and symptoms consistent with dx. Pt states that she gets (A) at [facility] and notes that unfortunately she feels this is her baseline and she is only going to get worse. She notes that she needs (A) with her ADLs. She is discouraged with her ADLs at times because she would like to remain as (I) as possible but states that due to short staffing she feels rushed with eating and bathing at SNF. She notes that she can perform this she just needs increased time. AMPAC score 11 Patient is assessed as a high 84246 complexity based on the following: History: see above Examination: see functional limitations as noted above Presentation: evolving Decision Making: AMPAC score 11 GOALS Seen for OT consult only. PLAN OF CARE/TREATMENT PLAN: Pt states that she is being discharged today and per nursing this is a high possibility. Pt states that she is at her baseline level of function at this time. DISCHARGE RECOMMENDATIONS OT recommends that pt return to [facility] when medically cleared per MD. TREATMENT TIME/MINUTES/CODES 10868, [id number], 15 minutes Nadine Jennings OTR/[facility]
[2021-10-01 11:41] VITALS: BP 110/65; PULSE 80; RESP 16; TEMP 36.6; O2SAT 97
[2021-10-01] MEDS: cefTRIAXone 1 GM/50 ML BAG IVPB (13:27)
[2021-10-01] MEDS: Normal Saline 500 ML 30 ML IV (13:28)
[2021-10-01 16:11] VITALS: BP 128/88; PULSE 97; RESP 20; TEMP 37.3; O2SAT 97
--- NOTE | 2021-10-01 16:13 | PGE_ITS ---
Date of Service Date of service: 10/01/21 Time of Service: 16:16 Assessment and Plan Assessment and plan (1) Sepsis: Status: Acute Assessment and plan: Multifactorial - due to PNA and possibly also a UTI, present on admission. Clinically pneumonia is supsected due to hypoxia and tachypnea on presentation as well as high risk of aspiration, even though her imaging (in her dehydrated state) did not show it. I doubt that the pelvic air bubble seen on CT is a cause of her infection (it would not explain her respiratory sx on presentation) and it was seen on prior imaging. I think this is something that should be followed up as outpatient as it does not reflect free air. Blood cultures with NGTD. Urine C&S is with <100,000 organisms, so UTI is actually less likely. MRSA nares negative. Change aztreonam to ceftriaxone as the patient has actually tolerated this in the past. Continue to trend procalcitonin (it is improving). Clinically improved and feels she is at baseline. (2) COVID: Status: Ruled-out Assessment and plan: Initially, COVID positive on 08/09. Her cycling time on COVID PCR was >30. Her positive covid test is unlikely to represent an ungoing COVID-19 disease. Her airborne precautions and remdesivir have been discontinued. (3) Pneumonia: Status: Acute Assessment and plan: As above (4) UTI (urinary tract infection): Status: Ruled-out Assessment and plan: Urine cx growing mixed gram neg rods and gram pos marnie. Abx as above The specimen is polymicrobial. I had a conversation with the patient about possibly considering a suprapubic catheter (the fact that she has had to wear diapers at the retirement is distressing to her). She is not interested in it and she had previously thought about it. (5) Multiple sclerosis: Status: Chronic Assessment and plan: Pain related to spasticity is better since adjustment of doses of baclofen and lyrica. Continue lyrica, baclofen. PT/OT consulted. Avoid overheating. Obtain speech therapy evaluation. Consult psychiatry for her symptoms of depression related to her diagnosis and disability. Wean off Lexapro over the next 3 days at 10mg daily and start Duloxetine 30mg daily with plan to increase to 60mg daily if needed. Duloxetine can be beneficial for her pain management as well. Consult palliative care to discuss her overall goals and how to improve her quality of life (the patient's ideal living environment is not in a retirement, per my conversation with her). Speech has evaluated; barium swallow study scheduled for tomorrow. (6) DVT (deep venous thrombosis): Status: Chronic Assessment and plan: Prior to admission. Continue therapeutic eliquis. . (7) Hypoglycemia: Status: Resolved Assessment and plan: Tolerating diet. (8) Elevated CPK: Status: Resolved Assessment and plan: No evidence of rhabdomyolysis. IVF d/smith as CPK elevation has resolved. Possibly due to spasticity of MS. (9) Discharge planning issues: Status: Acute Assessment and plan: Full code Anticipate discharge back to SNF tomorrow. Subjective Subjective Patient reports: no new complaints, feels better and afebrile; denies nausea, vomiting or shortness of breath Interval history since last seen: She has had a telehealth visit with Dr Gongora, Psychiatry, today. Exam Narrative Exam Narrative: General: Pleasant middle-aged female. Conversant. Lying in bed. HEENT: EOMI, MMM Heart: RRR, no m/r/g Lungs: CTAB Abdomen: soft, nontender, nondistended Extremities trace edema BLEs, ecchymosis RUE. Psych: A&O x 3. Affect appropriate. Objective Last Vital Signs Temp 37.3 C 10/01/21 16:11 Pulse 97 H 10/01/21 16:11 Resp 20 10/01/21 16:11 BP 128/88 10/01/21 16:11 Pulse Ox 97 10/01/21 16:11 Laboratory Results - last 24 hr 10/01/21 10/01/21 05:57 05:57 Sodium 138 Potassium 3.7 Chloride 104 Carbon Dioxide 27.8 Anion Gap 6.2 BUN 6 L Creatinine 0.5 L Estimated GFR/1.73 m2 >= 60.00 Glucose 82 Calcium 8.5 Magnesium 1.8 Procalcitonin 0.6
--- NOTE | 2021-10-01 17:00 | SPP_ITS ---
Date of service: 10/01/21 Time of Service: 17:00 Subjective Ethel was contacted in her room on [employer] this date. She was eating her lunch and agreeable to allow [employer] TECHNICIAN to observe her meal and provide education this date. She was positioned slightly reclined in chair at bedside, stating that it could not be raised. She was leaning to the R due to weakness and inability to maintain upright posture despite pillows to prop. Continued with PO trials/observation given this is likely a common eating position for her and would represent normal conditions per her report. Objective/Assessment/Plan Objective Treatment Techniques & Outcomes: Short Term Goals: 1. Patient will tolerate?thin liquids?without s/sx aspiration provided training in/use of swallow strategies and aspiration precautions within 1 week. IN PROGRESS: Patient initially demonstrating large/consecutive sips of thin liquids via straw with [employer] TECHNICIAN assist to hold cup (hospital cup too large/heavy for patient). Provided education re: recommendation for small sips to reduce risk of aspiration. Patient was agreeable and able to demonstrate 4x small sips following renewed instruction. No s/sx aspiration noted throughout. 2. Patient will tolerate?level 7 regular solid foods?without s/sx aspiration provided training in/use of swallow strategies and aspiration precautions within 1 week. IN PROGRESS: Patient independently demonstrating small bite size and slow rate. This date she was eating macaroni and cheese (IDDSI level 6 soft/bite size). She reports that she tends to choose/order foods that are softer due to fatigue and difficulty with chewing. At times, she will opt for a peanut butter/jelly sandwich if nothing appropriate is offered on the regular menu at her facility. She prefers regular diet so that she has the option to choose more naturally soft foods. No s/sx aspiration this date. Patient does demonstrate moderately prolonged mastication and some endorsed difficulty with oral clearance/A-P transit. Noting small amounts of solid residue on her lips. 3. Patient/carepartners will demonstrate understanding of education related to normal vs disordered swallowing, impact of MS on swallow function, relationship between respiration and deglutition, and?recommended strategies for minimizing risks?of aspiration pna/airway occlusion, including recommendation for updated oropharyngeal swallow imaging (VFSE/MBSS). IN PROGRESS: Provided verbal and written information related to neuromuscular degenerative diseases and impact on swallow function as well as aspiration precautions including swallow strategies, positioning, and oral care, risk of pulmonary complications, and role of [employer] TECHNICIAN. Patient verbalizes understanding, and notes she has worked with [employer] TECHNICIAN's in the past and continues to follow recommended swallow strategies such as slow rate and liquid wash. Assessment Patient was observed with soft/bite size solids and thin liquids this date and appeared to tolerate these baseline consistencies/textures well, demonstrating labored mastication and delayed oral transit. Benefitted from review/instruction regarding sip size to minimize risks of aspiration. She was receptive of education provided this date including recommendation for VFSS as well as increased frequency of oral care, as able. Instrumental assessment will provide further information regarding current swallow function/progression, aspiration risk, and appropriate diet recommendations as well as swallow strategies. Plan Plan: VFSS planned for tomorrow at 13:30 prior to d/c back to [facility]. Patient is agreeable. Recommendations Recommendations: Instrumentation:? VFSE/MBSS either while inpatient - discussed with MD to complete this prior to d/c. Orders placed for 10/02. Diet Texture Modification(s): IDDSI Level(s) 0-Thin Liquids, 7- Regular Solids or per patient preference Medication Intake: Whole with 0-Thin Liquids or as tolerated Alter medications only as advised by MD or Pharmacist RISK MANAGEMENT: Oral hygiene BID/2x per day, before/after PO intake using friction with toothbrush on all oral structures as tolerated HOB upright as tolerated; upright for all PO intake. Encourage physical mobility as tolerated. Level of Assistance/Supervision: Independent for all PO intake, set up/assist as needed given UE deficits? Strategies/Adaptations/Assistive Equipment: Small sips/bites, Slow rate of intake Posture/Positioning Needs: Maintain upright position at least 30 minutes after meals, Avoid meals/snacks 2- 3 hours prior to reclining/sleeping, Sleep with head of bed elevated to reduce likelihood of nocturnal reflux Total Time Spent: 35 minutes CPT: 74852 Dysphagia tx Shauna Rivera MS, CCC-[employer] TECHNICIAN 0224 Coding
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
--- NOTE | 2021-10-01 19:18 | PDOC.CMPRO ---
- If Service Date Differs Date of service: 10/01/21 Time of Service: 19:18 Care Management Progress Note S/O: Ethel was lying in bed when CM met with her. She stated that she has had periods of time when she feels angry, and she isn't sure why. She met with Dr. Gongora later in the day, to discuss her depression, and he made some medication recommendations. Ethel spoke of the many friends she has, and of how proud she is of her two daughters, one of which is graduating from college next month, and she hopes to attend. Per MD, she may be ready for discharge as early as tomorrow, and she will return to [facility], where she resides. CM will continue to follow. A: 41 year old female admitted to [facility] on 09/26/21 for Covid, pneumonia, UTI P: Ethel requires IV hydration and close monitoring. Anticipate, Ethel will discharge back to [facility] when medically ready per provider. She will transport via EMS. She will follow up with community providers and discharge plan of care as prescribed.
[2021-10-01 19:44] VITALS: BP 105/71; PULSE 99; RESP 20; TEMP 36.6; O2SAT 99
[2021-10-01] MEDS: clonazePAM 1 MG TAB 0.5 MG PO (19:49)
[2021-10-01] MEDS: Melatonin 3 MG TAB 6 MG PO (21:20)
--- NOTE | 2021-10-02 | DI.RAD_ITS ---
Exam(s) RF MODIFIED SPEECH BA SWALLOW EXAM: MODIFIED SPEECH BA SWALLOW CLINICAL HISTORY: dysphagia TECHNIQUE: 2D and realtime digital imaging was performed. CONTRAST MATERIAL: Multiple consistencies of barium were administered. COMPARISON: No exams were available for comparison FINDINGS: Multiple consistencies of barium were administered under the guidance of speech pathology. Multiple surgical clips are noted in the neck. No aspiration was observed with any consistency. There was significant pooling and residue in the vallecula and piriform sinuses with all consistencie s. The findings are greatest at of the right-sided vallecular. There is some improvement with head turning technique during swallowing. The barium tablet passed into the stomach. IMPRESSION: No aspiration. Significant pooling and residue in the vallecula. Please see detailed speech pathology report.. Fluoro time: 3 minutes 9 seconds RADIATION DOSE DELIVERED: idalia Quinones=24.6 mGy
[2021-10-02 00:50] VITALS: BP 112/78; PULSE 88; RESP 16; TEMP 36.3; O2SAT 94
[2021-10-02] MEDS: Levothyroxine 25 MCG TAB PO (05:36)
[2021-10-02 08:00] VITALS: BP 94/58; PULSE 84; RESP 18; TEMP 36.8; O2SAT 95
[2021-10-02] MEDS: Ascorbic Acid 500 MG TAB PO (08:21)
[2021-10-02] MEDS: Calcium Carbonate 1.5 GM TAB PO (08:22)
[2021-10-02] MEDS: Apixaban 2.5 MG TAB PO (08:22)
[2021-10-02] MEDS: Cholecalciferol (Vitamin D3) 1,000 UNIT TAB 2000 UNITS PO (08:22)
[2021-10-02] MEDS: Vitamins B Comp w/C TAB 1 TAB PO (08:22)
[2021-10-02] MEDS: DULoxetine 30 MG CAP PO (08:22)
[2021-10-02] MEDS: Baclofen 10 MG TAB 30 MG PO ×2 (08:22→14:51)
[2021-10-02] MEDS: Cetirizine 10 MG TAB PO (08:22)
[2021-10-02] MEDS: Escitalopram 10 MG TAB PO (08:22)
[2021-10-02] MEDS: Pregabalin 100 MG CAP PO ×2 (08:22→14:51)
--- NOTE | 2021-10-02 10:45 | PDOC.CMPRO ---
- If Service Date Differs Date of service: 10/02/21 Time of Service: 10:45 Care Management Progress Note S/O: A: 41 year old female admitted to [facility] on 09/26/21 for Covid, pneumonia, UTI P: Ethel requires IV hydration and close monitoring. Anticipate, Ethel will discharge back to [facility] when medically ready per provider. She will transport via EMS. She will follow up with community providers and discharge plan of care as prescribed.
[2021-10-02 11:59] VITALS: BP 104/71; PULSE 84; RESP 16; TEMP 36.8; O2SAT 95
[2021-10-02 13:02] LABS: Source Nasal/Nares
[2021-10-02 13:48] LABS: COVID-19 PCR Negative (Negative)
--- NOTE | 2021-10-02 14:02 | ST.MBS_ITS ---
Date of Service Date of service: 10/02/21 Time of Service: 14:02 Modified Barium Swallow Study Findings: Videofluoroscopic Swallowing Evaluation (VFSE) / Modified Barium Swallow Study (MBSS) Speech Language Pathology Report HPI: Pt is a 41 year old female referred for VFSE/MBSS per Dr Wheatley? in context of pneumonia, which is suspected to be due to hypoxia and tachypnea on presentation as well as high risk of aspiration.? 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 Currently tolerating a regular/thins diet per chart review. Patient is followed by both Neurology (Dr Francois) and Palliative Care (Dr. Donahue) Patient has been at [facility] for the last four years due to her advancing MS. Her Guardian is Jacy Townsend ([phone]) and her mother is Kaushik Quiroga ([phone]), both of [facility]. She's been in contact with both of them during her admission. Imagin09/26/[address] IMPRESSION: No evidence of pulmonary embolism. Foreign body in upper esophagus. (?tablet) Basilar atelectasis. 09/27/21 Chest CTA w Contrast IMPRESSION: 1. No evidence of pulmonary embolism. 2. Dense atelectasis versus small bilateral lower lobe dependent infiltrates. 3. 13 x 7 mm hyperdense ingested foreign body is seen in proximal esophagus on series 8, image 133. No evidence of esophageal obstruction. SUBJECTIVE: Patient reports she typically drinks via straw while at [facility]. IMPRESSIONS: Swallow safety is grossly preserved; swallow efficiency is impaired. Moderate, chronic oropharyngeal dysphagia, characterized by physiologic deficits as outlined below, and resulting in deep penetration of thin liquids with successive drinks, significant liquid and solid residue in what appears to be R vallecular space, cleared effectively with head turn to R+hard swallow and thin liquid wash; less residue noted with initial head turn to R side prior to swallow initiation; suspect dysphagia presentation due to post surgical anatomy/physiology, late effects of RT, progression of MS. Patient appears to be at low-moderate risk for potential aspiration PNA and/or pulmonary compromise and low for malnutrition, low risk for dehydration. Diet modification is not indicated aside from patient preference; non-oral nutrition is not indicated. Swallow prognosis is good-fair, given patient's cognitive level / comprehension regarding oultined risk management techniques, and overall self-awareness, pending patient/caregiver training in risk management as outlined, including use of trialed compensatory strategies as outlined above. Patient appears to be a good candidate for behavioral swallow rehabilitation with treating INVENTORY ADMINISTRATOR in SNF setting. Specialist referrals:N/A Ancillary tests: N/A Diet texture recommendation: IDDSI Level [x] 7-Regular Solids [] 7-Regular/Easy to Chew Solids [] 6-Soft & Bite-Sized Solids [] 5-Minced & Moist Solids [] 4-Pureed Solids [] 3-Liquidised Solids [] N/A - NPO [x] 0-Thin Liquids [] 1-Slightly Thick Liquids [] 2-Mildly Thick Liquids [] 3-Moderately Thick Liquids [] 4-Extremely Thick Liquids [] N/A - NPO] Please see further details at [email or web address] Diet texture modification is per patient's preference; please adjust diet textures at patient's discretion & collaboration with care team. Risk Management: [x] Behavioral reflux precautions, including upright position during + 90 mins after meals. [x] Small bites, approx [id number] [x] Small sips, approx 10 mL [x] Alternate solids/liquids as able [x] Multiple swallows per bolus to encourage clearance of pharyngeal stasis/residue [x] Head turn R to reduce volume of vallecular stasis [x] Ensure postural positioning is appropriate/patient positioned upright and to midline throughout meal, with supports as needed Control risk factors for aspiration pneumonia via (a) thorough oral hygiene & (b) maintaining physical mobility as tolerated PLAN: Therapy: Recommend subsequent session with SNF INVENTORY ADMINISTRATOR to review results of today's exam and develop treatment plan as appropriate. Goal: TBD pending patient/caregiver interview Follow-up exam: N/A Thank you for allowing me to take part in this patient's care. Please feel free to contact me with any questions/concerns. Margo Cary MA [facility]-INVENTORY ADMINISTRATOR Speech Language Pathologist [phone] OBJECTIVE: Videofluoroscopic Swallow Evaluation (VFSE/MBSS) was conducted in the lateral and [id number] projections by Speech-Language Pathologist, in collaboration with Radiologist, to evaluate oropharyngeal swallow function. Anatomic view under fluoroscopy: [x] WFL PO Barium Contrast Trials Oral barium water-soluble contrast was administered as follows: IDDSI Level 0 Varibar thin liquid (40% w/v) IDDSI Level 2 Varibar nectar thick/mildly thick liquid (40% w/v) IDDSI Level 3 Varibar thin honey/liquidised/moderately-thick (40% w/v) IDDSI Level 4 Varibar pudding/pureed/extremely thick (40% w/v) IDDSI Level 7 Regular Solid: 1/2 jihan cracker coated in 3 mL Varibar pudding; 13 mm barium tablet PHYSIOLOGIC FINDINGS (1) Oral Impairment 1 Lip Closure [x] 0-No labial escape [] 1-Interlabial escape; no progression to anterior lip [] 2-Escape from interlabial space or lateral juncture; no extension beyond justin border [] 3-Escape progressing to mid-chin [] 4-Escape beyond mid-chin 2 Tongue Control [] 0- Cohesive bolus between tongue to palatal seal [] 1- Escape to lateral buccal cavity/floor of mouth [x] 2- Posterior escape of less than half of bolus [] 3- Posterior escape of greater than half of bolus 3 Bolus Preparation/Mastication [] 0- Timely and efficient chewing/mashing [x] 1- Slowed/prolonged chewing/mashing with complete recollection [] 2- Disorganized chewing/mashing with solid pieces of bolus unchewed [] 3- Minimal chewing/mashing with majority of bolus unchewed 4 Bolus Transport/Lingual Motion [] 0- Brisk tongue motion [] 1- Delayed initiation of tongue motion [x] 2- Slowed tongue motion; 2 or less AP movements [] 3- Repetitive/disorganized tongue motion [] 4- Minimal to no tongue motion 5 Oral residue [] 0- Complete oral clearance [] 1- Trace residue lining oral structures [x] 2- Residue collection on oral structures [] 3- Majority of bolus remaining; >50% of bolus [] 4- Minimal to no clearance Location [x] floor of mouth [x] palate [x] tongue [x] lateral sulci 6 Initiation of pharyngeal swallow [] 0- Bolus head at posterior angle of ramus; first hyoid excursion [] 1- Bolus head in valleculae [] 2- Bolus head at posterior laryngeal surface of epiglottis [x] 3- Bolus head in pyriform sinus [] 4- No visible initiation at any location *delay in swallow onset across most trialed consistencies larger than 5cc in volume Pharyngeal Impairment 7 Velar Elevation [x] 0- No bolus between soft palate and pharyngeal wall [] 1- Trace column of contrast or air between soft palate and pharyngeal wall [] 2- Escape to nasopharynx [] 3- Escape to nasal cavity [] 4- Escape to nostril with/without emission 8 Laryngeal Elevation [] 0- Complete superior movement of thyroid cartilage with complete approximation of arytenoids to epiglottic petiole [x] 1- Partial superior movement of thyroid cartilage with partial approximation of arytenoids to epiglottic petiole [] 2- Minimal superior movement of thyroid cartilage with minimal approximation of arytenoids to epiglottic petiole [] 3- No superior movement of thyroid cartilage 9 Anterior Hyoid Excursion [] 0- Complete anterior movement [x] 1- Partial anterior movement [] 2- No anterior movement 10 Epiglottic Movement [] 0- Complete inversion [x] 1- Partial inversion [] 2- Absent/No inversion 11 Laryngeal Vestibule Closure [] 0- Complete; no air/contrast in laryngeal vestibule [x] 1- Incomplete; narrow column of air/contrast in laryngeal vestibule [] 2- None; wide column of air/contrast in laryngeal vestibule Penetration occurs [] prior to [x] during [] after initial swallow onset from [x] current bolus [] pharyngeal stasis Aspiration [x] not observed occurs [] during [] after initial swallow onset from [] current bolus [] pharyngeal stasis PAS / Overall 8-Point Penetration-Aspiration Scale (2) [] 1 - No material enters the airway [] 2 - Material enters the airway remains above the vocal folds and is ejected from the airway [] 3 - Material enters the airway remains above the vocal folds and is not ejected from the airway [x] 4 - Material enters the airway, contacts the vocal folds and is ejected from the airway [] 5 - Material enters the airway contacts the vocal folds and is not ejected from the airway [] 6 - Material enters the airway passes below the vocal folds and is ejected into the larynx or out of the airway [] 7 - Material enters the airway passes below the vocal folds and is not ejected from the trachea despite effort [] 8 - Material enters the airway passes below the vocal folds and no effort is made to eject Clinical Indicator(s) of Prandial/Postprandial Aspiration [x] N/A [] Cough [] Throat Clear [] Wet vocal quality [] Postural change [] Facial Grimace [] Other 12 Pharyngeal Stripping Wave [] 0- Present; complete [x] 1- Present; diminished [] 2- Absent 13 Pharyngeal Contraction [] 0- Complete [] 1- Incomplete; pseudodiverticulae [] 2- Unilateral bulging [] 3- Bilateral bulging [x] DNT; lack of AP view 14 PES/UES Opening [] 0- Complete distension and complete duration; no obs truction of flow [x] 1- Partial distension and partial duration; partial obstruction of flow [] 2- Minimal distension and minimal duration; marked obstruction of flow [] 3- No distension with total obstruction of flow 15 Tongue Base Retraction [] 0- No contrast between tongue base and posterior pharyngeal wall] [] 1- Trace column of contrast between tongue base and posterior pharyngeal wall [] 2- Narrow column of contrast between tongue base and posterior pharyngeal wall [x] 3- Wide column of contrast between tongue base and posterior pharyngeal wall [] 4- No visible posterior motion of tongue base 16 Pharyngeal residue [] 0-Complete pharyngeal clearance [] 1- Trace residue within or on pharyngeal structures [] 2- Collection of residue within or on pharyngeal structures [x] 3- Majority of residue within or on pharyngeal structures [] 4- Minimal to no pharyngeal clearance Location Genia Pharyngeal Residue Severity Rating Scale(3) [] N/A [x] Diffuse; >3 areas [x] Tongue base [x] Valleculae I None 0% No residue II Trace 1-5% Trace coating III Mild 5-25% Epiglottic ligament visible IV Moderate 25-50% Epiglottic ligament covered V Severe >50% Filled to epiglottic rim [] Pharyngeal wall [x] Pyriform sinuses I None 0% No residue II Trace 1-5% Trace coating III Mild 5-25% Up wall to quarter full IV Moderate 25-50% Up wall to half full V Severe >50% Filled to aryepiglottic fold [] Aryepiglottic folds Esophageal Impairment 17 Esophageal Clearance in Upright Position [] 0-Complete clearance; esophageal coating [] 1- Esophageal retention [] 2- Esophageal retention with retrograde flow below pharyngoesophageal segment/(PES/UES) [] 3- Esophageal retention with retrograde flow through pharyngoesophageal segment/(PES/UES) [] 4- Minimal to no esophageal clearance [x] DNT; lack of AP view Notes This study was performed for interpretation only of the oropharyngeal and pharyngoesophageal domains of swallowing, and is not intended to diagnose any other radiologic abnormalities or substitute for a formal esophagram study. DIGEST Scale Rating (4) Interaction of Assigned Safety and Efficiency Grades (0=No Impairment, 1=Mild, 2=Moderate, 3=Severe, 4=Life Threatening) Safety Grade S0 S1 S2 S3 S4 Efficiency Grade E0 0 1 2 3 3 E1 1 1 2 3 3 E2 1 2 2 3 3 E3 2 2 3 3 4 E4 3 3 3 4 4 Overall Moderate Pharyngeal Impairment - Above score(s) represent swallowing events without application of compensatory techniques - Breaking of MBSimP protocol for current study likely under-grades above safety impairment VÍCTOR: (5) Severity [] LEVEL 6 - Full PO: normal diet - Within functional limits/modified independence Trialed Compensatory Strategies & Outcome: Maneuvers Successful/Unsuccessful (+/-) Postures Successful/Unsuccessful (+/-) [x] 3 second Preparatory Set Successful in ensuring timely pharyngeal swallow onset [] Chin Tuck Posture [] Cough [] Posterior Head tilt Reflexive Cued [] Throat Clear [] Head Tilt to Reflexive Left Cued Right [x] Saliva swallow Successful in reducing residue [x] Head Turn/Rotation to [] Supraglottic Swallow Left [] Super-supraglottic Swallow x Right Successful in reducing residue Bolus Modifications Successful/Unsuccessful (+/-) [x] Delivery/Alternating Consistencies Follow with Liquid Wash Successful in reducing residue [x] Delivery/Via Straw No changes [] Reduced Volume [x] Reduced Rate of Intake Successful in reducing presence of penetration [] Increased Viscosity [] Other: Coding CPT Codes MOTION FLUOROSCOPY/SWALLOW - [id number] ([id number]) 1: Yesi Hassan et al. ?MBS measurement tool for swallow impairment--MBSImp: establishing a standard.? Dysphagia vol. 23,4 (2008): 392-405. doi:10.1007/m07153-277-4103-5 2: (Perfecto, et al, 1996) 3: (Umer, et al, 2015) 4: (ONeetu, et al, 1999, Teresa, et al. Cancer. 2017;123(1):62-70) The Dynamic Imaging Grade of Swallowing Toxicity (DIGEST) Score represents a set of structured criteria primarily validated for head and neck cancer patients to grade the interaction of safety, efficiency, and overall impairment of the pharyngeal swallow, meant to assist in prioritization of targets for dysphagia treatment planning. 5: The Dysphagia Outcome and Severity Scale is a 7-point scale developed to systematically rate the functional severity of dysphagia based on objective assessment and make recommendations for diet level, independence level, and type of nutrition.
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
--- NOTE | 2021-10-02 14:27 | CMDISCH_ITS ---
- If Service Date Differs Date of service: 10/02/21 Time of Service: 14:27 LACE Index Scoring Tool - Questions: Length of Stay (in days): 4 - 6 Acuity (Admit via E.D.?): Yes Comorbidities: Diabetes w/o Complication E.D. Visits: 3 - Answers: Total Score: 11 Risk of Readmission: High Risk Care Management Discharge Reason for Hospitalization: Covid, pneumonia, UTI Discharge Plan: Ethel discharged back to [facility] via [facility]. She will follow up with the facility provider and follow discharge plan of care as prescribed. During Ethel's admission she expressed that she would like to be reconnected with her voodoo and has wanted to join services via [facility] for quite some time. With pts permission, DIEGO spoke with Norma from the facility who will help pt with this process. Patient/Family Education Needs: Review discharge instructions, limitations, medications and plan to follow up facility provider and discharge plan of care as prescribed. ask me three. Services Needed at Discharge: Snf Facility (Discharge to [facility] ), Transportation (via [facility], arranged by DIEGO)
[2021-10-02] MEDS: cefTRIAXone 1 GM/50 ML BAG IVPB (14:51)
[2021-10-02] MEDS: Normal Saline 500 ML 30 ML IV (14:52)
[2021-10-02] MEDS: Barium Sulfate Oral Paste 40% W/V 230 ML TUBE 13 ML PO (14:55)
[2021-10-02] MEDS: Barium Sulfate 40% W/V 1500 CPS 250 ML BTL PO (14:56)
[2021-10-02] MEDS: Barium Sulfate 81% w/w for Oral Suspension 148 GM BTL 70 GM PO (14:56)
[2021-10-02] MEDS: Barium Sulfate 40% W/V 240 ML BTL PO (14:57)
[2021-10-02] MEDS: Barium Sulfate 700 MG TAB PO (14:58)
== END 2021-10-02 17:39 | disposition intermediate care facility (04) | DRG 871 ==
LOC: ER 09-27 03:12 → MS 09-27 03:19
PROVIDERS: Family Medicine; Internal Medicine; Admitting Provider Family Medicine; Emergency Provider Nurse Practitioner Family; PCP Family Medicine; Visit Provider Family Medicine
DX: A41.9 Sepsis, unspecified organism (principal); J18.9 Pneumonia, unspecified organism; G82.20 Paraplegia, unspecified; G35 Multiple sclerosis; Z85.810 Personal history of malignant neoplasm of tongue; E11.40 Type 2 diabetes mellitus with diabetic neuropathy, unspecified; G47.33 Obstructive sleep apnea (adult) (pediatric); R33.9 Retention of urine, unspecified; Z99.3 Dependence on wheelchair; N31.9 Neuromuscular dysfunction of bladder, unspecified; N39.498 Other specified urinary incontinence; D32.9 Benign neoplasm of meninges, unspecified; Z79.01 Long term (current) use of anticoagulants; E16.2 Hypoglycemia, unspecified; K59.00 Constipation, unspecified; R09.02 Hypoxemia; E83.119 Hemochromatosis, unspecified; Z86.718 Personal history of other venous thrombosis and embolism
CPT/HCPCS: 36415; 51702; 71275; 80048; 80053; 80076; 82306; 82550; 84145; 87040; 87081; 87635; 87637; 92526; 93005; 96361; 96365; 96366; 96367; 96368; 97163; 97167; 97535; 99285; Q3014; 71046; 74018; 74177; 74221; 80202; 81003; 81015; 82728; 83036; 83605; 83735; 84443; 84484; 85025; 85379; 85610; 86140; 87086; 93010; 99223; 99232; 99233; 99239; J0248; J0696; J3475; J3490

== ENCOUNTER → 2021-10-21 11:08 | Outpatient (BNVA) | payer MEDICARE, MEDICAID, SELFPAY | PROVIDERS: PCP Family Medicine; Referring Provider Family Medicine; Visit Provider Psychiatry & Neurology Neurology | DX: G35 Multiple sclerosis (principal); E11.40 Type 2 diabetes mellitus with diabetic neuropathy, unspecified | CPT/HCPCS: 99215 ==

== ENCOUNTER 2021-12-15 12:15 | Outpatient (REF) | payer MEDICARE, MEDICAID, SELFPAY ==
[2021-12-15 14:42] LABS: Abs Immature Grans 0.01 10^3/uL (0.0-0.06); Absolute Basophil Count 0.03 10^3/uL (0.0-0.2); Absolute Eosinophil Count 0.17 10^3/uL (0.0-0.7); Absolute Lymphocyte Count 1.02 10^3/uL (1.2-3.4); Absolute Monocyte Count 0.35 10^3/uL (0.1-0.8); Absolute Neutrophil Count 2.94 10^3/uL (1.2-6.7); Basophils % 0.7; Eosinophils % 3.8; HCT 41.7 % (36.0-46.0); HGB 13.4 g/dL (11.2-15.7); Immature Grans % 0.2; Lymphocytes % 22.6; MCH 30.6 pg (27.0-33.0); MCHC 32.1 % (32.0-36.0); MCV 95 fL (80-95); MPV 11.7 fL (8.0-11.0); Monocytes % 7.7; Platelet Count 146 10^3/uL (130-400); RBC 4.38 10^6/uL (3.93-5.22); RDW-SD 49.5 fL; WBC 4.52 10^3/uL (4.4-10.8)
[2021-12-15 14:46] LABS: Anion Gap 9.8 mmol/L (3-11); BUN 14 mg/dL (7-18); CO2 31.2 mmol/L (21.0-32.0); CREATININE 0.5 mg/dL (0.55-1.02); Calcium 9.1 mg/dL (8.5-10.1); Chloride 100 mmol/L (98-107); Glucose 162 mg/dL (74-106); Potassium 4.2 mmol/L (3.5-5.1); Sodium 141 mmol/L (136-145)
[2021-12-15 15:17] LABS: Bilirubin Negative (Negative); Blood Large (Negative); Clarity Clear (Clear); Glucose Negative (Negative); Ketones Negative (Negative); Leukocyte Esterase Small (Negative); Nitrite Negative (Negative); Urobilinogen 0.2 EU/dL (Up TO 0.2)
[2021-12-15 15:22] LABS: C & S Indicated? C&S Done As Ordered
[2021-12-15 15:26] LABS: Bacteria Negative HPF (Negative); Casts Negative LPF (Negative); Crystals Negative HPF (Negative); Epithelial Cells Few HPF (Negative); Mucus Negative (Negative); RBC >50 HPF (0-2); WBC >50 HPF (0-5)
== END 2021-12-15 12:16 | disposition home or self-care (01) ==
LOC: LBN 12:15
PROVIDERS: PCP Family Medicine; Visit Provider Nurse Practitioner Family
DX: R30.0 Dysuria (principal)
CPT/HCPCS: 80048; 81003; 81015; 85025; 87086

== ENCOUNTER 2021-12-15 12:57 | Outpatient (REF) | payer MEDICARE, MEDICAID, SELFPAY | END 2021-12-15 12:58 | disposition home or self-care (01) | LOC: LBN 12:57 | PROVIDERS: PCP Family Medicine; Visit Provider Family Medicine ==

== ENCOUNTER → 2021-12-26 10:09 | Outpatient (BNVA) | payer MEDICARE, MEDICAID, SELFPAY | PROVIDERS: PCP Family Medicine; Referring Provider Family Medicine; Visit Provider Nurse Practitioner Gerontology | DX: G35 Multiple sclerosis (principal); N31.9 Neuromuscular dysfunction of bladder, unspecified | CPT/HCPCS: 99214 ==

== ENCOUNTER → 2022-05-07 10:25 | Outpatient (BNVA) | payer MEDICARE, MEDICAID, SELFPAY | PROVIDERS: PCP Family Medicine; Referring Provider Family Medicine; Visit Provider Psychiatry & Neurology Neurology | DX: E11.42 Type 2 diabetes mellitus with diabetic polyneuropathy (principal); Z87.440 Personal history of urinary (tract) infections; G35 Multiple sclerosis; M62.838 Other muscle spasm | CPT/HCPCS: 99214 ==

== ENCOUNTER 2022-09-08 13:30 | Outpatient (REF) | payer MEDICARE, MEDICAID, SELFPAY ==
[2022-09-08 13:47] LABS: Abs Immature Grans 0.01 10^3/uL (0.0-0.06); Absolute Basophil Count 0.03 10^3/uL (0.0-0.2); Absolute Eosinophil Count 0.14 10^3/uL (0.0-0.7); Absolute Lymphocyte Count 0.96 10^3/uL (1.2-3.4); Absolute Monocyte Count 0.29 10^3/uL (0.1-0.8); Absolute Neutrophil Count 2.07 10^3/uL (1.2-6.7); Basophils % 0.9; HCT 43.3 % (36.0-46.0); HGB 14.2 g/dL (11.2-15.7); Immature Grans % 0.3; Lymphocytes % 27.4; MCH 30.5 pg (27.0-33.0); MCHC 32.8 % (32.0-36.0); MCV 93 fL (80-95); Monocytes % 8.3; Neutrophils % 59.1; RBC 4.65 10^6/uL (3.93-5.22); RDW 14.7 % (11.7-14.6); RDW-SD 50.4 fL
[2022-09-08 14:01] LABS: Diff Comment Diff Reviewed; RBC Morphology Normal
[2022-09-08 14:14] LABS: Hemoglobin A1C 5.6 % (<5.7)
[2022-09-08 14:19] LABS: Vitamin D 25 Total 54.7 ng/mL (30-100)
[2022-09-08 14:22] LABS: ALT 27 U/L (14-59); AST 20 U/L (15-37); Albumin 3.6 g/dL (3.4-5.0); Alkaline Phosphatase 169 U/L (46-116); Anion Gap 11.4 mmol/L (3-11); BUN 14 mg/dL (7-18); Bilirubin, Total 0.3 mg/dL (0.2-1.0); CO2 28.6 mmol/L (21.0-32.0); CREATININE 0.5 mg/dL (0.55-1.02); Calcium 9.3 mg/dL (8.5-10.1); Chloride 104 mmol/L (98-107); Estimated GFR 120.02 (mL/min/1.73m2); Glucose 126 mg/dL (74-106); Potassium 4.5 mmol/L (3.5-5.1); Sodium 144 mmol/L (136-145); Total Protein 7.7 g/dL (6.4-8.2); Vitamin B12 501 pg/mL (193-986)
== END 2022-09-08 13:31 | disposition home or self-care (01) ==
LOC: LBN 13:30
PROVIDERS: PCP Family Medicine; Visit Provider Physician Assistant
DX: G35 Multiple sclerosis (principal); E11.9 Type 2 diabetes mellitus without complications; Z79.899 Other long term (current) drug therapy
CPT/HCPCS: 80053; 82306; 82607; 83036; 85025

== ENCOUNTER 2022-10-08 17:18 | Outpatient (REF) | payer MEDICARE, MEDICAID, SELFPAY ==
[2022-10-08 18:29] LABS: Iron 44 ug/dL (50-170)
[2022-10-08 18:42] LABS: Ferritin 61 ng/mL (8-252)
== END 2022-10-08 17:19 | disposition home or self-care (01) ==
LOC: LBN 17:18
PROVIDERS: PCP Family Medicine; Visit Provider Physician Assistant
DX: E03.9 Hypothyroidism, unspecified (principal); G35 Multiple sclerosis; E11.9 Type 2 diabetes mellitus without complications
CPT/HCPCS: 82728; 83540; 84443

== ENCOUNTER → 2022-11-05 10:21 | Outpatient (BNVA) | payer MEDICARE, MEDICAID, SELFPAY | PROVIDERS: PCP Family Medicine; Visit Provider Psychiatry & Neurology Neurology | DX: G35 Multiple sclerosis (principal); G82.20 Paraplegia, unspecified; M62.838 Other muscle spasm; E11.42 Type 2 diabetes mellitus with diabetic polyneuropathy | CPT/HCPCS: 99214 ==

== ENCOUNTER 2022-12-06 15:54 | Emergency (ER) | payer MEDICARE, MEDICAID, SELFPAY ==
[2022-12-06 15:54] VITALS: BP 131/88; PULSE 81; RESP 16; TEMP 36.7; O2SAT 98
--- NOTE | 2022-12-06 16:00 | DI.CT_ITS ---
Exam(s) CT RENAL COLIC WO EXAM: CT RENAL COLIC WO CLINICAL HISTORY: hematuria and flank pain. TECHNIQUE: Imaging Protocol: Axial computed tomography images with coronal and sagittal reformatted images were created and reviewed. COMPARISON: CT CT ABDOMEN PELVIS W from 09/26/[address] CHEST PE CTA from 09/27/2021 FINDINGS: ABDOMEN: Lung Bases: Basilar infiltrates and/or atelectasis. Liver: Normal density. No measurable mass. Gallbladder and biliary tract: No radiodense calculus or biliary ductal dilation. Pancreas: Normal density, no abnormal calcifications or inflammatory process. Spleen: Normal. Kidneys: Normal size, contour and axis.No radiodense stones or obstructive uropathy. No masses seen. Adrenal glands: No mass is seen. Lymph nodes: Within normal limits. Abdominal Aorta: Abdominal portion non-dilated. Mild atherosclerosis. PELVIS: Bladder:There is diffuse irregular thickening of the wall of the urinary bladder. Bowel: There is a large amount of stool in the rectosigmoid colon. There is thickening of the wall o f the rectum. There is no evidence of bowel obstruction. No evidence of appendicitis. Peritoneal cavity: No ascites, collection or mesenteric inflammatory response. No free air. Reproductive organs: Status post hysterectomy. Bones: Within normal limits. Chronic deformities seen at the right hip. Soft Tissues: Soft tissue irregularity of the left buttocks in the region of the ischial tuberosity. This may represent an ulcer. No destructive changes are seen in the underlying bone. IMPRESSION: 1. Large amount of stool in the rectum and sigmoid colon with thickening of the rectal wall concernin g for stercoral colitis. 2. No evidence of nephrolithiasis. 3. Irregular urinary bladder wall thickening. Infectious/inflammatory cystitis or neoplastic process . Please correlate clinically. 4. Irregular soft tissue overlying in the left buttocks which may represent an ulcer. Please correla te with physical exam. The underlying ischial tuberosity appears grossly unremarkable without eviden ce of osteomyelitis. 5. Additional findings in the abdomen as described above. RADIATION DOSE DELIVERED: 1,228.58mGy.cm Total DLP DATA REPOSITORY: All CT scans at this facility are submitted to the National Radiology Data Registry (NRDR) Dose Index Registry (DIR) with the [employer] (A[employer]). RADIATION OPTIMIZATION: All CT scans at this facility use at least one of these dose optimization te chniques: automated exposure control; mA and/or kV adjustment per patient size (includes targeted exa ms where dose is matched to clinical indication); or iterative reconstruction.
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
[2022-12-06 16:32] LABS: Abs Immature Grans 0.01 10^3/uL (0.0-0.06); Absolute Basophil Count 0.03 10^3/uL (0.0-0.2); Absolute Eosinophil Count 0.19 10^3/uL (0.0-0.7); Absolute Lymphocyte Count 1.09 10^3/uL (1.2-3.4); Absolute Monocyte Count 0.32 10^3/uL (0.1-0.8); Absolute Neutrophil Count 3.24 10^3/uL (1.2-6.7); Basophils % 0.6; Eosinophils % 3.9; HGB 12.8 g/dL (11.2-15.7); Immature Grans % 0.2; Lymphocytes % 22.3; MCH 30.6 pg (27.0-33.0); MCHC 32.8 % (32.0-36.0); MCV 93 fL (80-95); MPV 11.1 fL (8.0-11.0); Monocytes % 6.6; Neutrophils % 66.4; Platelet Count 199 10^3/uL (130-400); RBC 4.18 10^6/uL (3.93-5.22); RDW 14.6 % (11.7-14.6); RDW-SD 50.5 fL; WBC 4.88 10^3/uL (4.4-10.8)
[2022-12-06 16:48] LABS: ALT 35 U/L (14-59); AST 22 U/L (15-37); Albumin 3.4 g/dL (3.4-5.0); Alkaline Phosphatase 188 U/L (46-116); Anion Gap 7.1 mmol/L (3-11); BUN 13 mg/dL (7-18); Bilirubin, Total 0.3 mg/dL (0.2-1.0); CO2 31.9 mmol/L (21.0-32.0); CREATININE 0.6 mg/dL (0.55-1.02); Calcium 9.2 mg/dL (8.5-10.1); Chloride 101 mmol/L (98-107); Estimated GFR 114.15 (mL/min/1.73m2); Glucose 131 mg/dL (74-106); Sodium 140 mmol/L (136-145)
--- NOTE | 2022-12-06 17:22 | DI.VRAD_ITS ---
Addendum created by Estelita Montes MD on 12/06/2022 5:25:36 PM EDT: THIS REPORT CONTAINS FINDINGS THAT MAY BE CRITICAL TO PATIENT CARE. The findings were verbally communicated via telephone conference with LEI COSTA at 5:25 PM EDT on 12/06/2022. The findings were acknowledged and understood. Initial report created on 12/06/2022 5:22:00 PM EDT: PROCEDURE INFORMATION: Exam: CT Abdomen And Pelvis Without Contrast Exam date and time: 12/06/2022 4:33 PM Age: 42 years old Clinical indication: Abdominal pain; Other: Not specified; Patient HX: Hematuria and flank pain TECHNIQUE: Imaging protocol: Computed tomography of the abdomen and pelvis without contrast. COMPARISON: CT ABDOMEN PELVIS W 26/09/2021 22:36 FINDINGS: Lungs: Bibasilar reticular markings. Bibasilar peribronchial thickening similar to prior study. Patchy right lower lobe infiltrate similar to prior study. Liver: Hepatic steatosis. Gallbladder and bile ducts: Normal. No calcified stones. No ductal dilation. Pancreas: Normal. No ductal dilation. Spleen: Normal. No splenomegaly. Adrenal glands: Normal. No mass. Kidneys and ureters: Right hydroureteronephrosis. Right hydroureter. The left kidney is unremarkable. No evidence for renal calculi or ureteral calculi. Stomach and bowel: Extremely large solid stool volume. Markedly distended stool-filled rectum measuring 9.6 x 10.0 cm with abnormal thickened rectal wall. Normal caliber small bowel. Fluid in air within the stomach. Possible prior stomach surgery with surgical clip unchanged from prior study. Scattered diverticuli. Appendix: No evidence of appendicitis. Intraperitoneal space: Unremarkable. No free air. No significant fluid collection. Vasculature: Vascular varices in the left pelvis and anterior lower pelvis. Atherosclerotic disease. Flattened inferior vena cava consistent with hypovolemia. Lymph nodes: Unremarkable. No enlarged lymph nodes. Urinary bladder: Abnormal asymmetric right lateral and anterior bladder wall thickening. Reproductive: Hysterectomy. Bones/joints: Multilevel degenerative scoliotic changes of the spine. Advanced degenerative changes of the hips. Persistent dislocation of the right hip. Decreased bone mineralization. Soft tissues: Dependent edema in the soft tissues of the back. Atrophic changes of the paraspinous muscle. Suspect left posterior buttocks ulceration which is progressed since the prior study. Marked atrophy of the pelvic muscles in upper leg muscles. IMPRESSION: 1. Extremely large solid stool volume. Markedly distended rectum measuring 9.6 cm with abnormal rectal wall thickening of concern for stercoral left colitis. 2. Mild right hydroureteronephrosis without evidence of right renal calculi. 3. Abnormal irregular bladder wall thickening of concern for infectious or neoplastic process. 4. Suspect left posterior buttocks ulceration. 5. Hypovolemia. 6. Multiple additional findings as discussed above. Dictated and Authenticated by: Estelita Montes MD. Ordering:PATTI Crook MD
[2022-12-06 17:49] LABS: Bilirubin Negative (Negative); Blood Large (Negative); Clarity Clear (Clear); Glucose Negative (Negative); Ketones Negative (Negative); Leukocyte Esterase Large (Negative); Nitrite Positive (Negative); Specific Gravity <= 1.005 (1.005-1.025); Urobilinogen 0.2 mg/dL (Up to 0.2); pH 5.5 (5-8)
[2022-12-06 18:05] LABS: Bacteria Many HPF (Negative); C & S Indicated? Yes; Casts Negative LPF (Negative); Crystals Negative HPF (Negative); Epithelial Cells Rare HPF (Negative); Mucus Negative (Negative)
[2022-12-06] MEDS: Normal Saline 1,000 ML 1000 ML IV (19:09)
[2022-12-06] MEDS: ACETAMINOPHEN 1,000 MG/100 ML BTL 1000 MG (19:10)
[2022-12-06] MEDS: Fosfomycin Tromethamine 3 GM PACKET PO (19:10)
[2022-12-06 20:39] VITALS: BP 152/86; PULSE 67; RESP 16; TEMP 36.4; O2SAT 99
--- NOTE | 2022-12-06 21:01 | NUR.NOTE ---
@1999-Brief changed, pt cleaned. Pt has mepilex on L buttock dated 12/05, no other skin breakdown noted to sacrum. Excess linens removed from bed. Pt given warm blankets, chux under pt. Re-positioned using pillows to R side.
--- NOTE | 2022-12-06 23:13 | NUR.NOTE ---
Attempted to call report to [facility] w/o answer.
--- NOTE | 2022-12-06 23:28 | NUR.NOTE ---
Report attempted x3 to [facility] w/o answer.
[2022-12-06 23:49] VITALS: BP 112/72; PULSE 76; RESP 15; TEMP 36.4; O2SAT 97
--- NOTE | 2022-12-09 10:01 | NUR.NOTE ---
Nursing Note: Accessed chart to look up whether or not on antibiotic.
== END 2022-12-07 01:55 | disposition home or self-care (01) ==
PROVIDERS: Emergency Provider Nurse Practitioner Family; PCP Family Medicine
DX: N39.0 Urinary tract infection, site not specified (principal); K59.01 Slow transit constipation; R31.9 Hematuria, unspecified
CPT/HCPCS: 80053; 87077; 96361; 96374; 99284; 74176; 81003; 81015; 85025; 87086; 87186; J0131; J3490

== ENCOUNTER → 2022-12-29 09:55 | Outpatient (BNVA) | payer MEDICARE, MEDICAID, SELFPAY | PROVIDERS: PCP Family Medicine; Visit Provider Nurse Practitioner Gerontology | DX: N31.9 Neuromuscular dysfunction of bladder, unspecified (principal); G35 Multiple sclerosis; Z87.440 Personal history of urinary (tract) infections; E11.42 Type 2 diabetes mellitus with diabetic polyneuropathy | CPT/HCPCS: 51798; 99213 ==

== ENCOUNTER 2023-01-08 19:38 | Outpatient (REF) | payer MEDICARE, MEDICAID, SELFPAY ==
[2023-01-08 19:54] LABS: Bilirubin Negative (Negative); Blood Trace-lysed (Negative); Clarity Sl Cloudy (Clear); Glucose Negative (Negative); Ketones Negative (Negative); Leukocyte Esterase Moderate (Negative); Nitrite Positive (Negative); Specific Gravity 1.015 (1.005-1.025); Urobilinogen 0.2 mg/dL (Up to 0.2); pH 6.5 (5-8)
[2023-01-08 20:02] LABS: Bacteria Few HPF (Negative); C & S Indicated? Yes; Casts Negative LPF (Negative); Crystals Negative HPF (Negative); Epithelial Cells Few HPF (Negative); Mucus Negative (Negative)
== END 2023-01-08 19:39 | disposition home or self-care (01) ==
LOC: LBN 19:38
PROVIDERS: PCP Family Medicine; Visit Provider Physician Assistant
DX: N39.0 Urinary tract infection, site not specified (principal)
CPT/HCPCS: 87077; 81003; 81015; 87086; 87186

== ENCOUNTER 2023-01-08 20:43 | Inpatient (IN) | payer MEDICARE, MEDICAID, SELFPAY ==
[2023-01-08] VITALS (16 sets, daily range): BP systolic 95–104; BP diastolic 60–65; PULSE 81–96; RESP 9–20; TEMP 36.6; O2SAT 96
--- NOTE | 2023-01-08 21:45 | DI.RAD_ITS ---
Exam(s) XR PORTABLE CHEST AP EXAM: XR PORTABLE CHEST AP CLINICAL HISTORY: fever. TECHNIQUE: 2D digital imaging was performed. COMPARISON: CR,XR XR CHEST 2V PA LATERAL from 09/26/2021 FINDINGS: Single AP portable view. Heart size is upper normal. The mediastinum is not widened. Is a focal area of infiltrate mid right lung zone. Scarring in the left lower lobe again noted. No pleural effusions. No pneumothorax. No fractures. IMPRESSION: Mid right lung area of infiltrate. No obvious pleural effusions. Appropriate follow-up recommended. DATA REPOSITORY: RADIATION DOSE DELIVERED:
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
[2023-01-08 22:10] LABS: Lactate 2.2 mmol/L (0.6-1.4)
[2023-01-08 22:11] LABS: Abs Immature Grans 0.02 10^3/uL (0.0-0.06); Absolute Basophil Count 0.03 10^3/uL (0.0-0.2); Absolute Eosinophil Count 0.08 10^3/uL (0.0-0.7); Absolute Lymphocyte Count 0.98 10^3/uL (1.2-3.4); Absolute Neutrophil Count 4.91 10^3/uL (1.2-6.7); Basophils % 0.4; Eosinophils % 1.2; HCT 38.4 % (36.0-46.0); HGB 12.4 g/dL (11.2-15.7); Immature Grans % 0.3; Lymphocytes % 14.6; MCHC 32.3 % (32.0-36.0); MCV 93 fL (80-95); MPV 11.5 fL (8.0-11.0); Monocytes % 10.4; Neutrophils % 73.1; Platelet Count 190 10^3/uL (130-400); RBC 4.14 10^6/uL (3.93-5.22); RDW 14.9 % (11.7-14.6); RDW-SD 50.6 fL; WBC 6.72 10^3/uL (4.4-10.8)
[2023-01-08] MEDS: Normal Saline 1,000 ML 1000 ML IV (22:14)
[2023-01-08 22:15] LABS: Bilirubin Negative (Negative); Blood Large (Negative); Clarity Sl Cloudy (Clear); Glucose Negative (Negative); Ketones Negative (Negative); Leukocyte Esterase Large (Negative); Nitrite Negative (Negative); Specific Gravity 1.015 (1.005-1.025); Urobilinogen 0.2 mg/dL (Up to 0.2)
[2023-01-08 22:20] LABS: Epithelial Cells Few HPF (Negative); WBC >50 HPF (0-5)
[2023-01-08 22:21] LABS: Bacteria Moderate HPF (Negative); C & S Indicated? C&S Done As Ordered; Casts Negative LPF (Negative); Crystals Negative HPF (Negative); Mucus Negative (Negative)
[2023-01-08 22:22] LABS: ALT 20 U/L (14-59); AST 21 U/L (15-37); Albumin 3.1 g/dL (3.4-5.0); Alkaline Phosphatase 152 U/L (46-116); Anion Gap 5.2 mmol/L (3-11); BUN 10 mg/dL (7-18); Bilirubin, Total 0.4 mg/dL (0.2-1.0); CO2 32.8 mmol/L (21.0-32.0); CREATININE 0.7 mg/dL (0.55-1.02); Chloride 101 mmol/L (98-107); Estimated GFR 109.98 (mL/min/1.73m2); Glucose 127 mg/dL (74-106); Magnesium 1.9 mg/dL (1.8-2.4); Potassium 3.2 mmol/L (3.5-5.1); Sodium 139 mmol/L (136-145); Total Protein 7.5 g/dL (6.4-8.2)
[2023-01-08] MEDS: Fosfomycin Tromethamine 3 GM PACKET PO (22:34)
--- NOTE | 2023-01-08 22:37 | SUR.INTRAOP ---
phoned mom per pt request. told her pt is with us in the ER, had a fever earlier 102., she has a UTI and will spend the night with us.
[2023-01-08] MEDS: Normal Saline 1,000 ML 150 ML IV (22:43)
--- NOTE | 2023-01-08 23:07 | DI.VRAD_ITS ---
PROCEDURE INFORMATION: Exam: XR Chest Exam date and time: 01/08/2023 10:19 PM Age: 42 years old Clinical indication: Fever TECHNIQUE: Imaging protocol: Radiologic exam of the chest. Views: 1 view. COMPARISON: CR XR CHEST 2V PA LATERAL 09/26/2021 10:50 PM FINDINGS: Lungs: Patchy right perihilar opacity with coarsening of the perihilar interstitial markings. No focal consolidation in the left lung. Pleural spaces: No visible pleural effusion. No pneumothorax. Heart/Mediastinum: Cardiomediastinal contours within normal limits. Bones/joints: Mild multilevel thoracic spondylosis with mild S-shaped curvature. No acute osseous finding. IMPRESSION: Patchy right perihilar opacity. Correlate clinically for infection/pneumonia. Dictated and Authenticated by: Prashant Dorado MD. Ordering:YOUSIF Soler MD
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
[2023-01-09] VITALS (10 sets, daily range): BP systolic 90–131; BP diastolic 58–87; PULSE 66–100; RESP 13–20; TEMP 36–38.2; O2SAT 18–99
--- NOTE | 2023-01-09 | DI.US_ITS ---
Exam(s) US RENAL EXAM: US RENAL CLINICAL HISTORY: UTI TECHNIQUE: Ultrasound of both kidneys performed using standard protocol. COMPARISON: US US RENAL from 09/04/[address] RENAL COLIC WO from 12/06/2022 FINDINGS: RIGHT KIDNEY: Measures 9 cm in length. No cysts evident. Normal cortical thickness and corticomedullary differentia tion .No solid masses No intrarenal calculi nor hydronephrosis. LEFT KIDNEY: Measures tear in cm in length. No cysts evident. Normal cortical thickness and corticomedullary diff erentiaion. No solids masses. No intrarenal calculi nor hydonephrosis. URINARY BLADDER: Prevoid volume is 371 cc Patient not able to void. Mild relatively uniform thickening of the urinary bladder wall noted. Both ureterovesical jets were identified. IMPRESSION: 1. No significant ultrasound findings in the kidneys. 2. No hydronephrosis. DATA REPOSITORY:
[2023-01-09] MEDS: POTASSIUM CHLORIDE/0.9% NACL 1,000 ML 100 MEQ IV (00:39)
[2023-01-09] MEDS: Apixaban 2.5 MG TAB PO ×3 (02:41→21:40)
[2023-01-09] MEDS: Baclofen 10 MG TAB 40 MG PO ×4 (02:41→21:40)
[2023-01-09] MEDS: Docusate Sodium 100 MG CAP 200 MG PO ×3 (02:42→21:43)
[2023-01-09] MEDS: clonazePAM 0.5 MG TAB PO ×2 (02:42→21:41)
[2023-01-09] MEDS: Sulfameth/Trimeth DS TAB 1 TAB PO ×2 (02:43→08:44)
[2023-01-09] MEDS: Melatonin 3 MG TAB 9 MG PO ×2 (02:43→21:41)
[2023-01-09] MEDS: Pregabalin 100 MG CAP PO ×4 (02:43→21:42)
[2023-01-09 03:05] LABS: Lactate 1.2 mmol/L (0.6-1.4)
[2023-01-09 03:17] LABS: Hemoglobin A1C 5.6 % (<5.7)
[2023-01-09 03:26] LABS: TSH (W/Ref FT4) 3.26 uIU/mL (0.36-3.74)
[2023-01-09] MEDS: Levothyroxine 25 MCG TAB PO (06:08)
[2023-01-09] MEDS: Ascorbic Acid 500 MG TAB PO (08:42)
[2023-01-09] MEDS: Polyethylene Glycol 3350 17 GM PACKET PO (08:43)
[2023-01-09] MEDS: DULoxetine 30 MG CAP 60 MG PO (08:43)
[2023-01-09] MEDS: Potassium Chloride 10 MEQ CAPCR 20 MEQ PO ×3 (08:43→21:43)
[2023-01-09 09:27] LABS: Anion Gap 6.6 mmol/L (3-11); BUN 7 mg/dL (7-18); CO2 28.4 mmol/L (21.0-32.0); CREATININE 0.5 mg/dL (0.55-1.02); Calcium 8.2 mg/dL (8.5-10.1); Chloride 109 mmol/L (98-107); Estimated GFR 119.27 (mL/min/1.73m2); Glucose 103 mg/dL (74-106); Potassium 3.8 mmol/L (3.5-5.1); Sodium 144 mmol/L (136-145)
[2023-01-09] MEDS: Lactated Ringers 500 ML IV (10:29)
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
--- NOTE | 2023-01-09 14:52 | WOUNDCONS_ITS ---
- If Service Date Differs Date of service: 01/09/23 Time of Service: 14:30 Wound Initial Evaluation Narrative: 42 yof female , with an extensive and complicated medical hx. Patient also has an extensive allergy list. She was brought to the ED here from her SNF, where she has resided the past 7 years. She came over with fever and weakness and hypokalemia. On December 06 she was treated here for an UTI with Fosfomycin. Treatment downstairs this time included fluid bolus and another round of Fosfomycin. She was admitted for observation. 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 Due to her hx of MS she is unable to offload pressure. However she tells me, that the staff [facility] have been doing a good job turning, repositioning, and checking her for both fecal and urinary incontinence. Patient did have a PEG tube in the past, but at this time is able to take PO intake. At baseline she Christy transfers from bed to motorized wheelchair and back. Review of her labs is encouraging, as her chemistry and CBC are all either normal or trending towards normal. Patient consents to the wound consult and signs consent. Patient's labs, H&P, allergies, and other pertinent information were reviewed prior to the consult. Body Four View: 1 - Stage 3 - Wound left buttock Wound Type: Pressure Ulcer Pressure Ulcer Stage: III Wound General Appearance: Draining, Bleeding, Necrotic, Unapproximated Wound Bed Greatest Portion: Red (Granulation) Wound Bed Lesser Portion: Yellow (Slough) Wound Surrounding Tissue Appearance: [place], Edematous Percent of Wound Bed Granulated/Red: 50 Percent of Wound Bed Slough/Yellow: 50 Wound Length: 1.2 cm Wound Width: 0.4 cm Wound Depth: 0.4 cm (0.4) Wound Drainage Amount: Minimal Wound Drainage Odor: None/Absent Wound Drainage Description: Purulent Wound Topical Solution/Irrigant: Saline Irrigant Wound Debridement Method: Gauze Wound Debridement Result: Healthy Tissue Revealed Wound Debridement Amount of Tissue Removed: Minimal - Circulation, Sensation, Motion Edema Degree: 2+ Peripheral Pulse Strength: Normal Capillary Refill: Less than 3 seconds Skin Temperature: Warm Skin Color: Pale Additional Other Comments: Patient denied neuropathy when asked - PITA Comment:: NA - Pain Pain Level: 0 (Denied pain) Patient with a long standing PI. Denied pain or neuropathy. Stated she that staff at her SNF do a good job of offloading pressure. Patient is unable to move her self, and relies on the staff to turn, reposition and keep her clean of bowel and bladder. Candace skin is pink , but is blanchable, no tunneling or undermining is noted within the wound. Treatment should consist of enzymatic debridement, to remove the remainder of the slough from the wound bed, so that the wound bed can heal by secondary intention. - Photo Photo: - Treatment/Dressing Change Cleanse With: Saline - Nutrition Education Reviewed Nutrition Education: Yes - Recomendation Recomendation:: Clean wound with Normal Saline and debride with Gauze. Pat dry. Apply a nickel thickness of Santyl to the wound bed. Cover with Mepilex Border. Change daily or prn. Offload pressure every 2 hours Physcian/Nurse Practioner Notified: Yes (Clarissa Lord NP) Treatment Time - Time Total Time Spent with Patient: 1 hour - Patient Will be Seen Weekly Treatment: daily - For: For:: 1 week
--- NOTE | 2023-01-09 15:43 | PGE_ITS ---
Date of Service Date of service: 01/09/23 Time of Service: 14:00 Assessment and Plan Assessment and plan (1) UTI (urinary tract infection), bacterial: Status: Acute Assessment and plan: Transient fever and mild lactic acidosis 2.2, down to 1.2 after fluids Should tolerate volume expansion we will continue with IV fluids Bactrim discontinued - fosfomycin given in ED Bladder scan as needed. Renal US No significant ultrasound findings in the kidney, no hydronephrosis. (2) Type 2 diabetes mellitus with hyperglycemia: Status: Chronic Assessment and plan: Does not appear to be on any medications and ordered A1c. (3) Hypothyroidism: Status: Chronic Assessment and plan: Continuing replacement TSH 3.26 (4) Hypokalemia: Status: Resolved Assessment and plan: Potassium 3.8; monitor (5) Multiple sclerosis: Status: Chronic Assessment and plan: Neurologically stable. low-dose apixaban ? s/t profound immobility and high DVT risk = continue Subjective Subjective Patient reports: no new complaints, tolerating liquids well, tolerating a regular diet, voiding w/o difficulty and afebrile; denies bowel movement, diarrhea, nausea, vomiting or shortness of breath Interval history since last seen: She reports feeling better today, however states she always trapped in a horrible body, my body hates me. She recounts being the second longest resident of the [facility], she states she does not feel ill and does not have any dysuria Exam Narrative Exam Narrative: General no acute distress noted, appears comfortable, prefers no pillows HEENT pupils are equal round and reactive to light, no conjunctival pallor or scleral icterus, oral mucosa moist with no erythema or exudate, she has had remote orofacial reconstructive surgery Neck supple, no lymphadenopathy or thyromegaly, carotid pulses normal and symmetric without bruits CV regular, no murmur or gallop, no JVD Lungs clear, no crackles or wheezes, no rhonchi and good air exchange Abdomen soft, nontender, bowel sounds normal, no organomegaly or masses Back no CVA tenderness Extremities trace lower extremity edema on the left non pitting Skin pressure related breakdown noted left gluteal area without surrounding erythema or any discharge expressed Neurologic multiple contractures noted, no purposeful movements of the lower extremities Objective Last Vital Signs Temp 37.4 C 01/09/23 15:37 Pulse 66 01/09/23 15:37 Resp 16 01/09/23 15:37 BP 108/74 01/09/23 15:37 Pulse Ox 99 01/09/23 15:37 Laboratory Results - last 24 hr 01/08/23 01/08/23 01/08/23 22:00 22:00 22:00 WBC 6.72 RBC 4.14 Hgb 12.4 Hct 38.4 MCV 93 MCH 30.0 MCHC 32.3 RDW 14.9 H Plt Count 190 MPV 11.5 H Immature Gran % 0.3 Neutrophils % 73.1 Lymphocytes % 14.6 Monocytes % 10.4 Eosinophils % 1.2 Basophils % 0.4 Nucleated RBC % 0.0 Absolute Neutrophils 4.91 Absolute Lymphocytes 0.98 L Absolute Monocytes 0.70 Absolute Eosinophils 0.08 Absolute Basophils 0.03 VBG Lactate 2.2 H* Sodium 139 Potassium 3.2 L Chloride 101 Carbon Dioxide 32.8 H Anion Gap 5.2 BUN 10 Creatinine 0.7 Est GFR (CKD-EPI 2020) 109.98 Glucose 127 H Hemoglobin A1c Calcium 9.0 Magnesium 1.9 Total Bilirubin 0.4 AST 21 ALT 20 Alkaline Phosphatase 152 H Total Protein 7.5 Albumin 3.1 L TSH Urine Color Urine Clarity Urine pH Ur Specific [place] Urine Protein Urine Ketones Urine Blood Urine Nitrite Urine Bilirubin Urine Urobilinogen Ur Leukocyte Esterase Urine RBC Urine WBC Ur Epithelial Cells Urine Crystals Urine Bacteria Urine Casts Urine Mucus Ur Culture Indicated? Urine Glucose 01/08/23 01/08/23 01/08/23 22:00 22:00 22:00 WBC RBC Hgb Hct MCV MCH MCHC RDW Plt Count MPV Immature Gran % Neutrophils % Lymphocytes % Monocytes % Eosinophils % Basophils % Nucleated RBC % Absolute Neutrophils Absolute Lymphocytes Absolute Monocytes Absolute Eosinophils Absolute Basophils VBG Lactate Sodium Potassium Chloride Carbon Dioxide Anion Gap BUN Creatinine Est GFR (CKD-EPI 2020) Glucose Hemoglobin A1c 5.6 Calcium Magnesium Total Bilirubin AST ALT Alkaline Phosphatase Total Protein Albumin TSH 3.26 Urine Color Yellow Urine Clarity Sl Cloudy Urine pH 6.0 Ur Specific [place] 1.015 Urine Protein 30 H Urine Ketones Negative Urine Blood Large H Urine Nitrite Negative Urine Bilirubin Negative Urine Urobilinogen 0.2 Ur Leukocyte Esterase Large H Urine RBC 10-20 H Urine WBC >50 H Ur Epithelial Cells Few Urine Crystals Negative Urine Bacteria Moderate Urine Casts Negative Urine Mucus Negative Ur Culture Indicated? C&S Done As Ordered Urine Glucose Negative 01/09/23 01/09/23 03:00 09:00 WBC RBC Hgb Hct MCV MCH MCHC RDW Plt Count MPV Immature Gran % Neutrophils % Lymphocytes % Monocytes % Eosinophils % Basophils % Nucleated RBC % Absolute Neutrophils Absolute Lymphocytes Absolute Monocytes Absolute Eosinophils Absolute Basophils VBG Lactate 1.2 Sodium 144 Potassium 3.8 Chloride 109 H Carbon Dioxide 28.4 Anion Gap 6.6 BUN 7 Creatinine 0.5 L Est GFR (CKD-EPI 2020) 119.27 Glucose 103 Hemoglobin A1c Calcium 8.2 L Magnesium Total Bilirubin AST ALT Alkaline Phosphatase Total Protein Albumin TSH Urine Color Urine Clarity Urine pH Ur Specific [place] Urine Protein Urine Ketones Urine Blood Urine Nitrite Urine Bilirubin Urine Urobilinogen Ur Leukocyte Esterase Urine RBC Urine WBC Ur Epithelial Cells Urine Crystals Urine Bacteria Urine Casts Urine Mucus Ur Culture Indicated? Urine Glucose Time Spent with Patient Time Spent with Patient: 25-34 minutes Time was spent: preparing to see the patient(eg.review tests), ordering medications,tests, procedures, referring, communicating with other health body care manager, indepentently interpreting results, counseling the patient and care coordination
[2023-01-09] MEDS: Collagenase 30 GM TUBE TP (16:00)
--- NOTE | 2023-01-09 16:55 | PHACLINREV_ITS ---
Pharmacy Admission Review Admission Clinical Review Admission Pharmacy Review: (Updated 01/08/23 @ 23:48 by Victor Manuel Bowen MD) Fever (Acute) UTI (urinary tract infection), bacterial (Acute) Neurogenic bladder (Acute 06/29/14) amoxicillin Allergy (Severe, Verified 01/08/23 20:52) Hives venom-honey bee Allergy (Severe, Verified 01/08/23 20:52) Anaphylaxsis azithromycin [From Zithromax] Allergy (Intermediate, Verified 01/08/23 20:52) hives ciprofloxacin Allergy (Intermediate, Verified 01/08/23 20:52) Hives cod liver oil Allergy (Intermediate, Verified 01/08/23 20:52) Gadolinium-Containing Contrast Medi Allergy (Intermediate, Verified 01/08/23 20:52) Hives latex Allergy (Intermediate, Verified 01/08/23 20:52) Skin Rash lactose Allergy (Mild, Verified 01/08/23 20:52) ceftriaxone [From Rocephin] Allergy (Verified 01/08/23 20:52) cortisone Allergy (Verified 01/08/23 20:52) interferon beta-1b [From Betaseron] Allergy (Verified 01/08/23 20:52) methylprednisolone [From Solu-Medrol] Allergy (Verified 01/08/23 20:52) red dye Allergy (Verified 01/08/23 20:52) metformin Adverse Reaction (Intermediate, Verified 01/08/23 20:52) RASH, DIARRHEA gabapentin Adverse Reaction (Mild, Verified 01/08/23 20:52) LE edema Hymenoptera allergen extract Allergy (Uncoded 01/08/23 20:52) Resuscitation Status Full Code Height 5 ft 2 in Weight 61.4 kg Comments Comments/Follow Ups: Watch BP, K+, labs, for culture results and for med changes. Pharmacy Admission Review Renal Dosing Renal Dosing: BUN 7 mg/dL (7-18) 01/09/23 09:00 Creatinine 0.5 mg/dL (0.55-1.02) L 01/09/23 09:00 Medications needing adjustments: Reviewed (Crcl ~125 mL/min current meds okay) Anticoagulation Anticoagulation: Hgb 12.4 g/dL (11.2-15.7) 01/08/23 22:00 Hct 38.4 % (36.0-46.0) 01/08/23 22:00 Plt Count 190 10^3/uL (130-400) 01/08/23 22:00 Creatinine 0.5 mg/dL (0.55-1.02) L 01/09/23 09:00 DVT Prophylaxis: Reviewed (low dose apixaban ordered- see H&P or progress note regarding dosing) Opiate Usage Evaluate Pain Scale/Pains Meds: N/A Relevant Labs Relevant Labs: Sodium 144 mmol/L (136-145) 01/09/23 09:00 Potassium 3.8 mmol/L (3.5-5.1) 01/09/23 09:00 Chloride 109 mmol/L (98-107) H 01/09/23 09:00 Magnesium 1.9 mg/dL (1.8-2.4) 01/08/23 22:00 Electrolytes, C-Reactive P, ESR: Reviewed DM Control DM Control: Glucose 103 mg/dL (74-106) 01/09/23 09:00 Hemoglobin A1c 5.6 % (<5.7) 01/08/23 22:00 DM Control: Reviewed (No DM noted in pt's medical history, A1c 5.6) Cardiac Review BP, HR, EF%: Reviewed (BP low to normal and HR within normal limits today) QTc Review QTc: N/A IV to PO Switch IV Medications: Reviewed Home Meds Home Med List reviewed: Reviewed (from [facility]. Pt's own methenamine sent over from [facility] for use while the patient is here) Relevent Home Meds Not ordered & why?: acetaminophen (PRN), calcium carbonate, cholecalciferol, loratadine (PRN), psyllium (PRN), zinc Current Meds Current Medication Order Review: Reviewed Pharmacy Antibiotic Review Pharmacy Antibiotic Activity: C/S review and D/C antibiotic Comments: UC growing E.coli, MRSA screen pending. Bactrim discontinued by provid er as pt received fosfomycin in the ED yesterday and due to possible drug interaction with methenamine Comments Comments/Follow Ups: Watch BP, K+, labs, for culture results and for med changes.
[2023-01-09] MEDS: Milk of Magnesia 30 ML CUP PO (21:44)
[2023-01-09] MEDS: Nystatin POWDER 60 GM JAR TP (21:46)
[2023-01-09] MEDS: Ibuprofen 200 MG TAB 400 MG PO (22:16)
[2023-01-10] VITALS (13 sets, daily range): BP systolic 92–117; BP diastolic 58–78; PULSE 80–131; RESP 16–20; TEMP 36.5–37.9; O2SAT 92–98
--- NOTE | 2023-01-10 02:00 | W.PM.PROGNOT ---
Date of Service Date of service: 01/10/23 Time of Service: 02:00 Subjective Subjective Interval history since last seen: Asked to evaluate patient for fever and tachycardia. [place] quite chilly before but denies rigors. Developed tachycardia with heart rates in the 120s but no palpitations or dyspnea. Denies any dysuria. Urine culture from yesterday is growing E. coli and her Bactrim was discontinued due to interaction with the methenamine as well as the fact that she received fosfomycin. Ordered a saline bolus and single dose of Bactrim, stopping methenamine for now, ordered blood cultures as I do not see any previously in the lab. Given her presentation consistent with sepsis would continue systemic antibiotics until bacteremia excluded. If she does not tolerate or is unable to continue Bactrim then we will consider gentamicin or tobramycin based on multiple severe allergies, at least until sensitivities return on E. coli. Also ordered acetaminophen. Objective Last Vital Signs Temp 38.2 C H 01/09/23 22:16 Pulse 100 H 01/09/23 20:00 Resp 16 01/09/23 20:00 BP 131/87 01/09/23 20:00 Pulse Ox 98 01/09/23 20:00 Laboratory Results - last 24 hr 01/08/23 01/08/23 01/09/23 22:00 22:00 03:00 VBG Lactate 1.2 Sodium Potassium Chloride Carbon Dioxide Anion Gap BUN Creatinine Est GFR (CKD-EPI 2020) Glucose Hemoglobin A1c 5.6 Calcium TSH 3.26 01/09/23 09:00 VBG Lactate Sodium 144 Potassium 3.8 Chloride 109 H Carbon Dioxide 28.4 Anion Gap 6.6 BUN 7 Creatinine 0.5 L Est GFR (CKD-EPI 2020) 119.27 Glucose 103 Hemoglobin A1c Calcium 8.2 L TSH Time Spent with Patient Time Spent with Patient: <25 minutes Time was spent: ordering medications,tests, procedures
[2023-01-10] MEDS: Acetaminophen 325 MG TAB 650 MG PO (02:21)
[2023-01-10] MEDS: Sulfameth/Trimeth DS TAB 1 TAB PO (02:23)
[2023-01-10] MEDS: Normal Saline 500 ML IV (02:23)
[2023-01-10] MEDS: Normal Saline Flush 10 ML SYR IVP ×2 (03:43→11:55)
[2023-01-10] MEDS: Normal Saline 1,000 ML 1000 ML IV (03:45)
[2023-01-10] MEDS: AZTREONAM 2,000 MG in Normal Saline 100 ML 200 MG IVPB ×3 (04:06→19:50)
[2023-01-10 04:15] LABS: Abs Immature Grans 0.01 10^3/uL (0.0-0.06); Absolute Basophil Count 0.02 10^3/uL (0.0-0.2); Absolute Lymphocyte Count 0.73 10^3/uL (1.2-3.4); Absolute Monocyte Count 0.49 10^3/uL (0.1-0.8); Absolute Neutrophil Count 4.04 10^3/uL (1.2-6.7); Basophils % 0.4; Eosinophils % 1.9; HCT 30.4 % (36.0-46.0); HGB 10.1 g/dL (11.2-15.7); Immature Grans % 0.2; Lymphocytes % 13.5; MCH 30.6 pg (27.0-33.0); MCHC 33.2 % (32.0-36.0); MCV 92 fL (80-95); Monocytes % 9.1; Neutrophils % 74.9; Platelet Count 154 10^3/uL (130-400); RDW 14.8 % (11.7-14.6); RDW-SD 50.1 fL; WBC 5.39 10^3/uL (4.4-10.8)
[2023-01-10 04:21] LABS: Lactate 0.7 mmol/L (0.6-1.4)
[2023-01-10 04:38] LABS: Anion Gap 5.7 mmol/L (3-11); BUN 7 mg/dL (7-18); CO2 26.3 mmol/L (21.0-32.0); CREATININE 0.5 mg/dL (0.55-1.02); Calcium 8.2 mg/dL (8.5-10.1); Chloride 107 mmol/L (98-107); Estimated GFR 119.27 (mL/min/1.73m2); Glucose 147 mg/dL (74-106); Potassium 4.2 mmol/L (3.5-5.1); Sodium 139 mmol/L (136-145)
[2023-01-10] MEDS: Levothyroxine 25 MCG TAB PO (05:19)
[2023-01-10] MEDS: Lactated Ringers 1,000 ML 100 ML IV ×2 (06:23→16:33)
--- NOTE | 2023-01-10 07:23 | W.PM.PROGNOT ---
Date of Service Date of service: 01/10/23 Time of Service: : Assessment and Plan Assessment and plan (1) Sepsis: Status: Acute Assessment and plan: Patient presented with recurrent UTI and mild hypotension and a mild lactic acidosis on admission. Lactic acidosis resolved with IV fluids. However patient had tachycardia and hypotension last night suggestive of worsening sepsis however her repeat lactate was normal. Patient responded to IV fluids and did not require vasopressors. Initial urine culture positive for E. coli sensitivities pending. Blood cultures not obtained admission but were obtained last night with her febrile episodes. Continue IV fluid hydration and broad-spectrum antibiotics with aztreonam pending urine culture sensitivities and results of blood cultures. Continue to monitor daily labs. Continue telemetry. (2) UTI (urinary tract infection), bacterial: Status: Acute Assessment and plan: Continue plan as above. I suspect she has neurogenic bladder secondary to her MS. Renal ultrasound was done yesterday showed no hydronephrosis and no evidence of pyelonephritis. She does have evidence of chronic cystitis with mild bladder wall thickening. Transfer text. I will ask nursing to perform urinary bladder scans Q6h and cath prn residual over 300 mL (3) Type 2 diabetes mellitus with hyperglycemia: Status: Chronic Assessment and plan: listed as one of her diagnosis but she is not on medications for this and her glycohemoglobin A1c is 5.6% and has been under 6% since 04/08/2018 but prior to 2018 she frequently was running over 8%. It is unclear under what circumstances she wad diabetic, i.e., on chronic steroids for her M.S. but clearly she does not have elevated glucose levels now (4) Hypothyroidism: Status: Chronic Assessment and plan: Continuing replacement TSH 3.26 (5) Multiple sclerosis: Status: Chronic Assessment and plan: per Dr. Francois, she has progressive secondary M.S. and other than vitamin D supplementation is not on any treatment. 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 per Dr. Francois, patient has been referred to [facility] custom decorating consultant for tendon release for her right leg which has severe contractions at her hip causing her chronic pain Subjective Subjective Interval history since last seen: Patient is sleepy this morning but arousable answering questions appropriately. She denies any discomfort. Last night she had fever spike associated with tachycardia. She also dropped her blood pressure which required fluid boluses by the patient financial rep last night. Apparently her Bactrim was discontinued yesterday out of concern for drug interaction with her methenamine. Patient did receive fosfomycin on admission but no further antibiotics were given until the patient financial rep last night was called evaluate the patient and he started her on aztreonam. Preliminary urine cultures from admission show E. coli sensitivities are pending. Repeat urine culture was done last night along with blood cultures. Patient remains on LR at 100 mL/h. Patient is taking minimal oral intake and therefore we will continue IV fluids and continue on broad-spectrum antibiotics pending sensitivities of her urine and blood cultures. She is afebrile this morning but had a temperature up to 38.2 last night. Exam Narrative Exam Narrative: Ethel is lying in bed with her eyes shut but opens her eyes and answers my questions. Voice is very soft and I had asked her to speak up so I can understand her. She is oriented and answers questions appropriately. Lungs are clear to auscultation Heart is regular no longer tachycardic no appreciable murmur rub Abdomen soft with normal bowel sounds nontender nondistended Extremities with flexion contractures no open sores. Objective Last Vital Signs Temp 36.9 C 01/10/23 05:26 Pulse 81 01/10/23 05:26 Resp 16 01/10/23 05:26 BP 92/58 L 01/10/23 05:26 Pulse Ox 92 01/10/23 05:26 Laboratory Results - last 24 hr 01/09/23 01/10/23 01/10/23 09:00 04:10 04:10 WBC 5.39 RBC 3.30 L Hgb 10.1 L D Hct 30.4 L MCV 92 MCH 30.6 MCHC 33.2 RDW 14.8 H Plt Count 154 MPV 11.0 Immature Gran % 0.2 Neutrophils % 74.9 Lymphocytes % 13.5 Monocytes % 9.1 Eosinophils % 1.9 Basophils % 0.4 Nucleated RBC % 0.0 Absolute Neutrophils 4.04 Absolute Lymphocytes 0.73 L Absolute Monocytes 0.49 Absolute Eosinophils 0.10 Absolute Basophils 0.02 VBG Lactate Sodium 144 139 Potassium 3.8 4.2 Chloride 109 H 107 Carbon Dioxide 28.4 26.3 Anion Gap 6.6 5.7 BUN 7 7 Creatinine 0.5 L 0.5 L Est GFR (CKD-EPI 2020) 119.27 119.27 Glucose 103 147 H Calcium 8.2 L 8.2 L Magnesium 2.0 01/10/23 04:10 WBC RBC Hgb Hct MCV MCH MCHC RDW Plt Count MPV Immature Gran % Neutrophils % Lymphocytes % Monocytes % Eosinophils % Basophils % Nucleated RBC % Absolute Neutrophils Absolute Lymphocytes Absolute Monocytes Absolute Eosinophils Absolute Basophils VBG Lactate 0.7 Sodium Potassium Chloride Carbon Dioxide Anion Gap BUN Creatinine Est GFR (CKD-EPI 2020) Glucose Calcium Magnesium Time Spent with Patient Time Spent with Patient: 25-34 minutes Time was spent: preparing to see the patient(eg.review tests), obtaining and/or reviewing separately otained hiistory, ordering medications,tests, procedures, indepentently interpreting results, counseling the patient and care coordination
[2023-01-10 07:46] LABS: Lab Add On Test DONE
[2023-01-10] MEDS: Polyethylene Glycol 3350 17 GM PACKET PO (07:56)
[2023-01-10 07:57] LABS: C-Reactive Protein 14.79 mg/dL (0.0-0.3)
[2023-01-10] MEDS: Pregabalin 100 MG CAP PO ×3 (07:57→19:53)
[2023-01-10] MEDS: Baclofen 10 MG TAB 40 MG PO ×3 (07:57→19:51)
[2023-01-10] MEDS: DULoxetine 30 MG CAP 60 MG PO (07:57)
[2023-01-10] MEDS: Apixaban 2.5 MG TAB PO ×2 (07:58→19:50)
[2023-01-10] MEDS: Docusate Sodium 100 MG CAP 200 MG PO ×2 (07:58→19:52)
[2023-01-10] MEDS: Ascorbic Acid 500 MG TAB PO (07:58)
[2023-01-10] MEDS: Collagenase 30 GM TUBE TP (07:59)
[2023-01-10] MEDS: Nystatin POWDER 60 GM JAR TP ×3 (08:02→19:53)
[2023-01-10 08:49] LABS: Procalcitonin 0.6 ng/mL
[2023-01-10] MEDS: clonazePAM 0.5 MG TAB PO (19:51)
[2023-01-10] MEDS: Melatonin 3 MG TAB 9 MG PO (19:52)
[2023-01-11] VITALS (8 sets, daily range): BP systolic 90–122; BP diastolic 62–80; PULSE 84–111; RESP 16–22; TEMP 35.7–37.5; O2SAT 92–97
[2023-01-11] MEDS: Lactated Ringers 1,000 ML 100 ML IV ×2 (03:26→14:23)
[2023-01-11] MEDS: AZTREONAM 2,000 MG in Normal Saline 100 ML 200 MG IVPB ×2 (05:21→11:20)
[2023-01-11] MEDS: Levothyroxine 25 MCG TAB PO (05:22)
[2023-01-11 07:56] LABS: Abs Immature Grans 0.01 10^3/uL (0.0-0.06); Absolute Basophil Count 0.03 10^3/uL (0.0-0.2); Absolute Eosinophil Count 0.15 10^3/uL (0.0-0.7); Absolute Lymphocyte Count 0.73 10^3/uL (1.2-3.4); Absolute Monocyte Count 0.39 10^3/uL (0.1-0.8); Absolute Neutrophil Count 3.66 10^3/uL (1.2-6.7); Basophils % 0.6; HCT 32.3 % (36.0-46.0); HGB 10.5 g/dL (11.2-15.7); Immature Grans % 0.2; Lymphocytes % 14.7; MCH 30.1 pg (27.0-33.0); MCHC 32.5 % (32.0-36.0); MCV 93 fL (80-95); MPV 11.2 fL (8.0-11.0); Monocytes % 7.8; Neutrophils % 73.7; Platelet Count 163 10^3/uL (130-400); RBC 3.49 10^6/uL (3.93-5.22); RDW 14.9 % (11.7-14.6); RDW-SD 50.8 fL; WBC 4.97 10^3/uL (4.4-10.8)
[2023-01-11] MEDS: Nystatin POWDER 60 GM JAR TP ×3 (08:05→21:12)
[2023-01-11] MEDS: Pregabalin 100 MG CAP PO ×3 (08:06→21:12)
[2023-01-11] MEDS: Collagenase 30 GM TUBE TP (08:06)
[2023-01-11] MEDS: Apixaban 2.5 MG TAB PO ×2 (08:06→21:12)
[2023-01-11] MEDS: Ascorbic Acid 500 MG TAB PO (08:06)
[2023-01-11] MEDS: Baclofen 10 MG TAB 40 MG PO ×3 (08:07→21:10)
[2023-01-11] MEDS: Docusate Sodium 100 MG CAP 200 MG PO ×2 (08:07→21:11)
[2023-01-11] MEDS: DULoxetine 30 MG CAP 60 MG PO (08:07)
[2023-01-11 08:11] LABS: BUN 13 mg/dL (7-18); C-Reactive Protein 15.81 mg/dL (0.0-0.3); CREATININE 0.6 mg/dL (0.55-1.02); Calcium 8.9 mg/dL (8.5-10.1); Chloride 103 mmol/L (98-107); Estimated GFR 114.15 (mL/min/1.73m2); Glucose 117 mg/dL (74-106); Sodium 138 mmol/L (136-145)
[2023-01-11] MEDS: Normal Saline Flush 10 ML SYR IVP (11:20)
[2023-01-11] MEDS: IMIPENEM/CILASTATIN 500 MG in Normal Saline 100 ML 200 MG IVPB ×2 (12:10→17:27)
--- NOTE | 2023-01-11 16:41 | PGE_ITS ---
Date of Service Date of service: 01/11/23 Time of Service: 16:41 Assessment and Plan Assessment and plan (1) Sepsis: Status: Acute Assessment and plan: Responded to IVF BP 110/70 HR 80 Initial urine culture positive for E. coli, today ESBL - abx changed to Imipene, Blood cultures pending Hold IV fluid s/t crackles in right lung base. Continue to monitor daily labs BC neg to date, MRSA nares neg Continue telemetry. (2) UTI (urinary tract infection), bacterial: Status: Acute Assessment and plan: Continue plan as above. Continue indwelling urinary catheter BC neg (3) Type 2 diabetes mellitus with hyperglycemia: Status: Chronic Assessment and plan: A1c is 5.6% and has been under 6% since 04/08/2018 On chronic steroids for her M.S. no elevated glucose levels (4) Hypothyroidism: Status: Chronic Assessment and plan: Continuing replacement TSH 3.26 (5) Multiple sclerosis: Status: Chronic Assessment and plan: per Dr. Francois, she has progressive secondary M.S. and other than vitamin D supplementation is not on any treatment. 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 per Dr. Francois, patient has been referred to [facility] medical social consultant for tendon release for her right leg which has severe contractions at her hip causing her chronic pain Discussed with Dr Craig Subjective Subjective Patient reports: no new complaints, tolerating liquids well, tolerating a regular diet, voiding w/o difficulty (urinary catheter) and fever (overnight 38.2); denies diarrhea or vomiting Exam Narrative Exam Narrative: General no acute distress noted, appears comfortable HEENT pupils are equal round and reactive to light, no conjunctival pallor or scleral icterus, oral mucosa moist with no erythema or exudate, she has had remote orofacial reconstructive surgery Neck supple, no lymphadenopathy or thyromegaly, carotid pulses normal and symmetric without bruits CV regular, no murmur or gallop, no JVD Lungs clear, no crackles or wheezes, no rhonchi and good air exchange Abdomen soft, nontender, bowel sounds normal, no organomegaly or masses Back no CVA tenderness Extremities trace lower extremity edema on the left non pitting Skin pressure related breakdown noted left gluteal area without surrounding erythema or any discharge expressed Neurologic multiple contractures noted, no purposeful movements of the lower extremities Objective Last Vital Signs Temp 36.8 C 01/11/23 14:47 Pulse 84 01/11/23 15:21 Resp 16 01/11/23 14:47 BP 90/62 L 01/11/23 14:47 Pulse Ox 97 01/11/23 14:47 Laboratory Results - last 24 hr 01/11/23 01/11/23 06:47 06:47 WBC 4.97 RBC 3.49 L Hgb 10.5 L Hct 32.3 L MCV 93 MCH 30.1 MCHC 32.5 RDW 14.9 H Plt Count 163 MPV 11.2 H Immature Gran % 0.2 Neutrophils % 73.7 Lymphocytes % 14.7 Monocytes % 7.8 Eosinophils % 3.0 Basophils % 0.6 Nucleated RBC % 0.0 Absolute Neutrophils 3.66 Absolute Lymphocytes 0.73 L Absolute Monocytes 0.39 Absolute Eosinophils 0.15 Absolute Basophils 0.03 Sodium 138 Potassium 4.0 Chloride 103 Carbon Dioxide 25.0 Anion Gap 10.0 BUN 13 Creatinine 0.6 Est GFR (CKD-EPI 2020) 114.15 Glucose 117 H Calcium 8.9 C-Reactive Protein 15.81 H Time Spent with Patient Time Spent with Patient: 35-49 minutes Time was spent: preparing to see the patient(eg.review tests), ordering medications,tests, procedures, referring, communicating with other health child care associate teacher, indepentently interpreting results, counseling the patient and care coordination
[2023-01-11] MEDS: clonazePAM 0.5 MG TAB PO (21:11)
[2023-01-11] MEDS: Melatonin 3 MG TAB 9 MG PO (21:13)
[2023-01-12 00:01] VITALS: PULSE 81
[2023-01-12] MEDS: IMIPENEM/CILASTATIN 500 MG in Normal Saline 100 ML 200 MG IVPB ×3 (01:11→11:55)
[2023-01-12] MEDS: Normal Saline Flush 10 ML SYR IVP ×2 (01:11→02:29)
[2023-01-12] MEDS: Levothyroxine 25 MCG TAB PO (05:36)
[2023-01-12 06:37] VITALS: BP 94/60; PULSE 88; RESP 16; TEMP 36.6; O2SAT 96
[2023-01-12 07:00] VITALS: PULSE 78
[2023-01-12 07:26] LABS: Abs Immature Grans 0.03 10^3/uL (0.0-0.06); Absolute Basophil Count 0.03 10^3/uL (0.0-0.2); Absolute Eosinophil Count 0.15 10^3/uL (0.0-0.7); Absolute Lymphocyte Count 0.66 10^3/uL (1.2-3.4); Absolute Monocyte Count 0.35 10^3/uL (0.1-0.8); Basophils % 0.9; Eosinophils % 4.3; HCT 33.2 % (36.0-46.0); HGB 10.8 g/dL (11.2-15.7); Immature Grans % 0.9; Lymphocytes % 18.8; MCH 30.2 pg (27.0-33.0); MCHC 32.5 % (32.0-36.0); MCV 93 fL (80-95); Monocytes % 9.9; Neutrophils % 65.2; RBC 3.58 10^6/uL (3.93-5.22); RDW 14.7 % (11.7-14.6); WBC 3.52 10^3/uL (4.4-10.8)
[2023-01-12 07:38] VITALS: BP 97/64; PULSE 79; RESP 16; TEMP 36.5; O2SAT 97
[2023-01-12 07:40] LABS: Anion Gap 6.3 mmol/L (3-11); BUN 6 mg/dL (7-18); C-Reactive Protein 12.02 mg/dL (0.0-0.3); CO2 28.7 mmol/L (21.0-32.0); CREATININE 0.5 mg/dL (0.55-1.02); Calcium 8.9 mg/dL (8.5-10.1); Chloride 104 mmol/L (98-107); Estimated GFR 119.27 (mL/min/1.73m2); Glucose 104 mg/dL (74-106); Magnesium 1.8 mg/dL (1.8-2.4); Potassium 3.9 mmol/L (3.5-5.1); Sodium 139 mmol/L (136-145)
[2023-01-12] MEDS: Ondansetron O.D.T. 4 MG TABEF PO (07:41)
[2023-01-12 07:54] LABS: Diff Comment Diff Reviewed; RBC Morphology Normal
[2023-01-12 08:13] LABS: Procalcitonin 0.6 ng/mL
[2023-01-12] MEDS: Collagenase 30 GM TUBE TP (08:36)
[2023-01-12] MEDS: Nystatin POWDER 60 GM JAR TP ×2 (08:36→13:18)
[2023-01-12] MEDS: Polyethylene Glycol 3350 17 GM PACKET PO (08:37)
[2023-01-12] MEDS: Baclofen 10 MG TAB 40 MG PO ×2 (08:38→13:11)
[2023-01-12] MEDS: Apixaban 2.5 MG TAB PO (08:38)
[2023-01-12] MEDS: Ascorbic Acid 500 MG TAB PO (08:38)
[2023-01-12] MEDS: DULoxetine 30 MG CAP 60 MG PO (08:38)
[2023-01-12] MEDS: Docusate Sodium 100 MG CAP 200 MG PO (08:39)
[2023-01-12] MEDS: Pregabalin 100 MG CAP PO ×2 (08:39→13:12)
[2023-01-12 12:19] VITALS: BP 90/60; PULSE 76; RESP 16; TEMP 36.4; O2SAT 95
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
[2023-01-12] MEDS: Fosfomycin Tromethamine 3 GM PACKET PO (13:11)
[2023-01-12 13:25] VITALS: PULSE 75
--- NOTE | 2023-01-12 13:29 | PDOC.CMDIS ---
Date of service: 01/12/23 Time of Service: 13:29 LACE Index Scoring Tool Questions: Length of Stay (in days): 4 - 6 Was the patient admitted via the E.D.?: Yes Comorbidities: Diabetes w/o Complication E.D. Visits: 1 Answers: Total Score: 9 Risk of Readmission: Low Risk Care Management Discharge Plan Reason for Hospitalization: UTI, hypokalemia Discharge Plan: Ethel will return to [facility], where she resides. She will transport via [facility], coordinated by CM. She will follow up with her PCP and discharge plan of care. She is happy to be returning home. Patient/Family Education Needs: Review discharge instructions and limitations, discussion of self care needs including ask me three. Services Needed at Discharge: Nursing Home Facility ([facility]) and Transportation ([facility])
== END 2023-01-12 14:37 | disposition skilled nursing facility (03) | DRG 871 ==
LOC: ER 23:43 → MS 01-09 00:23
PROVIDERS: Hospitalist; Nurse Practitioner Family; Admitting Provider Internal Medicine; Emergency Provider Emergency Medicine Emergency Medical Services; PCP Family Medicine; Visit Provider Internal Medicine
DX: A41.9 Sepsis, unspecified organism (principal); L89.323 Pressure ulcer of left buttock, stage 3; N39.0 Urinary tract infection, site not specified; G82.20 Paraplegia, unspecified; E87.20 Acidosis, unspecified; E11.65 Type 2 diabetes mellitus with hyperglycemia; E03.9 Hypothyroidism, unspecified; E87.6 Hypokalemia; G35 Multiple sclerosis; R50.9 Fever, unspecified; R53.1 Weakness; R47.1 Dysarthria and anarthria; Z99.3 Dependence on wheelchair; Z85.810 Personal history of malignant neoplasm of tongue; E11.40 Type 2 diabetes mellitus with diabetic neuropathy, unspecified; N31.9 Neuromuscular dysfunction of bladder, unspecified; G47.33 Obstructive sleep apnea (adult) (pediatric); E83.119 Hemochromatosis, unspecified; F32.A Depression, unspecified; B96.20 Unspecified Escherichia coli [E. coli] as the cause of diseases classified elsewhere; G89.4 Chronic pain syndrome
CPT/HCPCS: 36415; 76770; 80048; 80053; 84145; 87040; 87077; 87081; 99291; 71045; 81003; 81015; 83036; 83605; 83735; 84443; 85025; 86140; 87086; 99222; 99232; 99239; J0743; J3490

== ENCOUNTER 2023-02-03 05:26 | Outpatient (REF) | payer MEDICARE, MEDICAID, SELFPAY ==
[2023-02-03 05:59] LABS: Bilirubin Negative (Negative); Blood Negative (Negative); Clarity Sl Cloudy (Clear); Glucose Negative (Negative); Ketones Negative (Negative); Leukocyte Esterase Moderate (Negative); Nitrite Negative (Negative); Urobilinogen 0.2 mg/dL (Up to 0.2)
[2023-02-03 06:34] LABS: Bacteria Moderate HPF (Negative); C & S Indicated? Yes; Crystals Negative HPF (Negative); Epithelial Cells Rare HPF (Negative); Mucus Negative (Negative); WBC 20-50 HPF (0-5)
== END 2023-02-03 05:27 | disposition home or self-care (01) ==
LOC: LBN 05:26
PROVIDERS: PCP Family Medicine; Visit Provider Physician Assistant
DX: R36.9 Urethral discharge, unspecified (principal); R82.79 Other abnormal findings on microbiological examination of urine; R31.9 Hematuria, unspecified
CPT/HCPCS: 87077; 81003; 81015; 87086; 87186

== ENCOUNTER 2023-04-01 13:29 | Outpatient (REF) | payer MEDICARE, MEDICAID, SELFPAY ==
[2023-04-01 14:01] LABS: Abs Immature Grans 0.01 10^3/uL (0.0-0.06); Absolute Basophil Count 0.03 10^3/uL (0.0-0.2); Absolute Eosinophil Count 0.13 10^3/uL (0.0-0.7); Absolute Lymphocyte Count 1.05 10^3/uL (1.2-3.4); Absolute Monocyte Count 0.15 10^3/uL (0.1-0.8); Absolute Neutrophil Count 2.34 10^3/uL (1.2-6.7); Basophils % 0.8; Eosinophils % 3.5; HCT 46.4 % (36.0-46.0); HGB 14.6 g/dL (11.2-15.7); Immature Grans % 0.3; Lymphocytes % 28.3; MCH 29.8 pg (27.0-33.0); MCHC 31.5 % (32.0-36.0); MCV 95 fL (80-95); MPV 11.3 fL (8.0-11.0); Neutrophils % 63.1; Platelet Count 181 10^3/uL (130-400); RDW 15.2 % (11.7-14.6); RDW-SD 52.5 fL; WBC 3.71 10^3/uL (4.4-10.8)
[2023-04-01 14:16] LABS: ALT 27 U/L (14-59); AST 23 U/L (15-37); Albumin 3.5 g/dL (3.4-5.0); Alkaline Phosphatase 222 U/L (46-116); Anion Gap 8.1 mmol/L (3-11); BUN 12 mg/dL (7-18); Bilirubin, Total 0.3 mg/dL (0.2-1.0); C-Reactive Protein 1.83 mg/dL (0.0-0.3); CO2 25.9 mmol/L (21.0-32.0); CREATININE 0.4 mg/dL (0.55-1.02); Calcium 9.5 mg/dL (8.5-10.1); Chloride 102 mmol/L (98-107); Estimated GFR 125.86 (mL/min/1.73m2); Glucose 153 mg/dL (74-106); Potassium 4.4 mmol/L (3.5-5.1); Sodium 136 mmol/L (136-145); Total Protein 8.5 g/dL (6.4-8.2)
[2023-04-01 14:19] LABS: Hemoglobin A1C 5.9 % (<5.7)
[2023-04-02 10:22] LABS: Prealbumin 23 mg/dL (20-40)
== END 2023-04-01 13:30 | disposition home or self-care (01) ==
LOC: LBN 13:29
PROVIDERS: PCP Family Medicine; Visit Provider Nurse Practitioner Adult Health
DX: G35 Multiple sclerosis (principal); Z16.12 Extended spectrum beta lactamase (ESBL) resistance; E11.40 Type 2 diabetes mellitus with diabetic neuropathy, unspecified
CPT/HCPCS: 80053; 83036; 84134; 85025; 86140

== ENCOUNTER → 2023-04-08 03:25 | Outpatient (CLI) | payer MEDICARE, MEDICAID, SELFPAY ==
--- NOTE | 2023-04-08 | DI.RAD_ITS ---
Exam(s) XR HIP LT COMPLETE AP PELVIS EXAM: XR HIP LT COMPLETE AP PELVIS INDICATION: PAIN, PRESSURE INJURY,? OSTEOMYELITIS. COMPARISON: CT CT RENAL COLIC WO from 12/06/2022 TECHNIQUE: 2D digital imaging was performed. Three views. FINDINGS: There is severe deformity of the right acetabulum and severe degenerative changes at the right hip j oint. The left hip joint space is maintained. There is acetabular spurring. There is no evidence o f fracture. There is no gross bony destruction. Plain films are relatively insensitive for detectio n of osteomyelitis. A large quantity of stool is noted in the visualized portions of the colon. IMPRESSION: Severe degenerative changes of the right hip chronic acetabular deformity. No evidence of fracture. DATA REPOSITORY: RADIATION DOSE DELIVERED:
== END ==
PROVIDERS: PCP Family Medicine; Visit Provider Nurse Practitioner Adult Health
DX: M16.11 Unilateral primary osteoarthritis, right hip (principal)
CPT/HCPCS: 73502

== ENCOUNTER 2023-04-22 23:55 | Inpatient (IN) | payer MEDICARE, MEDICAID, SELFPAY ==
--- NOTE | 2023-04-22 23:15 | RT.EKG_ITS ---
APPROVED REPORT Exam: Resting ECG Reason for Exam: sob Patient Location: E HR:118 bpm ECG Measurements Heart Rate 118 AXIS FL 142 P 25 QRSd 62 QRS 20 QT 299 T -7 QTc 420 Conclusion Sinus tachycardia...rate> 99 Physician: no stemi, inverted t wave in III, no sT elevations
[2023-04-22 23:40] VITALS: BP 117/84; PULSE 120; RESP 22; TEMP 36.8; O2SAT 94
[2023-04-23] VITALS (27 sets, daily range): BP systolic 100–117; BP diastolic 56–78; PULSE 85–115; RESP 8–34; TEMP 36–37.9; O2SAT 94–100
--- NOTE | 2023-04-23 | DI.RAD_ITS ---
Exam(s) XR HIP LT COMPLETE AP PELVIS EXAM: XR HIP LT COMPLETE AP PELVIS INDICATION: Left hip pain chronic, fever, rule out gas. COMPARISON: CR XR HIP LT COMPLETE AP PELVIS from 04/08/2023 TECHNIQUE: 2D digital imaging was performed. Three views. FINDINGS: Chronic deformity of the right hip and acetabulum with subluxation of the femur.. Chronic deformity of the pubic symphysis. The right hip joint space is maintained. There is mild acetabular spurring. There is no evidence fracture. No gas collection is noted in the soft tissues. No gross bony dest ruction. IMPRESSION: No acute abnormality. DATA REPOSITORY: RADIATION DOSE DELIVERED:
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
--- NOTE | 2023-04-23 00:05 | DI.RAD_ITS ---
Exam(s) XR CHEST 1V IN DI DEPT EXAM: XR CHEST 1V IN DI DEPT CLINICAL HISTORY: fever, r/o pneumonia TECHNIQUE: 2D digital imaging was performed. COMPARISON: CR,XR XR PORTABLE CHEST AP from 01/08/2023 FINDINGS: Leads overlie the chest. LUNGS: Clear. No pleural abnormality seen. HEART: Normal size. AORTA: Normal diameter. BONES: Unremarkable for age. Soft tissues: Unremarkable. IMPRESSION: No acute findings. DATA REPOSITORY: RADIATION DOSE DELIVERED:
[2023-04-23 00:34] LABS: Lactate 1.7 mmol/L (0.6-1.4)
[2023-04-23 00:36] LABS: Abs Immature Grans 0.02 10^3/uL (0.0-0.06); Absolute Basophil Count 0.04 10^3/uL (0.0-0.2); Absolute Eosinophil Count 0.14 10^3/uL (0.0-0.7); Absolute Lymphocyte Count 1.38 10^3/uL (1.2-3.4); Absolute Monocyte Count 0.42 10^3/uL (0.1-0.8); Absolute Neutrophil Count 5.56 10^3/uL (1.2-6.7); Basophils % 0.5; Eosinophils % 1.9; HCT 35.8 % (36.0-46.0); HGB 11.8 g/dL (11.2-15.7); Immature Grans % 0.3; Lymphocytes % 18.3; MCH 29.5 pg (27.0-33.0); MCV 90 fL (80-95); MPV 10.5 fL (8.0-11.0); Monocytes % 5.6; Neutrophils % 73.4; Platelet Count 219 10^3/uL (130-400); RDW 15.9 % (11.7-14.6); RDW-SD 51.8 fL; WBC 7.56 10^3/uL (4.4-10.8)
[2023-04-23 00:38] LABS: ESR 69 mm/hr (0-20)
[2023-04-23 00:48] LABS: Bilirubin Negative (Negative); Blood Trace-intact (Negative); Clarity Cloudy (Clear); Glucose Negative (Negative); Ketones Negative (Negative); Leukocyte Esterase Moderate (Negative); Nitrite Positive (Negative); Urobilinogen 0.2 mg/dL (Up to 0.2); pH 7.5 (5-8)
[2023-04-23 00:55] LABS: ALT 23 U/L (14-59); AST 15 U/L (15-37); Albumin 2.8 g/dL (3.4-5.0); Alkaline Phosphatase 190 U/L (46-116); Anion Gap 8.1 mmol/L (3-11); BUN 11 mg/dL (7-18); Bilirubin, Total 0.3 mg/dL (0.2-1.0); C-Reactive Protein 6.05 mg/dL (0.0-0.3); CO2 27.9 mmol/L (21.0-32.0); CREATININE 0.6 mg/dL (0.55-1.02); Calcium 9.5 mg/dL (8.5-10.1); Chloride 100 mmol/L (98-107); Estimated GFR 114.15 (mL/min/1.73m2); Glucose 151 mg/dL (74-106); Magnesium 1.9 mg/dL (1.8-2.4); Sodium 136 mmol/L (136-145); Total Protein 8.1 g/dL (6.4-8.2); Troponin I < 50 ng/L (<or=60)
[2023-04-23 00:57] LABS: C & S Indicated? C&S Done As Ordered; WBC >50 HPF (0-5)
[2023-04-23 01:01] LABS: COVID-19 PCR Negative (Negative); Influenza A PCR Negative (Negative); Influenza B PCR Negative (Negative); RSV PCR Negative (Negative)
[2023-04-23 01:08] LABS: Source Nasopharynx
[2023-04-23 01:08] LABS: Procalcitonin 0.9 ng/mL
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
[2023-04-23] MEDS: IMIPENEM/CILASTATIN 500 MG in Normal Saline 100 ML 200 MG IVPB ×4 (01:33→19:37)
--- NOTE | 2023-04-23 01:38 | DI.VRAD_ITS ---
PROCEDURE INFORMATION: Exam: XR Chest Exam date and time: 04/23/2023 12:57 AM Age: 42 years old Clinical indication: Fever; Additional info: Fever, rule out pneumonia TECHNIQUE: Imaging protocol: Radiologic exam of the chest. Views: 1 view. COMPARISON: CR XR PORTABLE CHEST AP 01/08/2023 10:19 PM FINDINGS: Lungs: No pulmonary consolidation is seen. Pleural spaces: No pleural effusion or pneumothorax is demonstrated. Heart/Mediastinum: Heart size is normal. Bones/joints: The visualized bony structures appear grossly intact, as seen. IMPRESSION: No acute visceral or bony injury seen in the chest. Dictated and Authenticated by: Johan Cohen MD. Ordering:UZAIR Madrigal MD
--- NOTE | 2023-04-23 01:40 | DI.VRAD_ITS ---
PROCEDURE INFORMATION: Exam: XR Left Hip Exam date and time: 04/23/2023 1:03 AM Age: 42 years old Clinical indication: Other: Fever; Hip pain; Left hip; Additional info: Chronic lt hip pain, fever, rule out gas. TECHNIQUE: Imaging protocol: Radiologic exam of the left hip. Views: 2 or 3 views hip with pelvis when performed. COMPARISON: CR XR HIP LT COMPLETE AP PELVIS 04/08/2023 11:02 AM FINDINGS: Bones/joints: An AP view of the pelvis is submitted with coned down AP views of the left hip joint. No acute fracture or dislocation is seen at the left hip joint. There is chronic subluxation/dislocation of the right hip joint with severe associated degenerative change, grossly stable compared with the prior exam from April 08, 2023. Soft tissues: No gross soft tissue abnormality is seen. IMPRESSION: 1. No acute fracture or dislocation seen at the left hip joint. 2. Chronic subluxation/dislocation of the right hip joint with severe associated degenerative change, grossly stable compared with the prior study from April 08, 2023. Dictated and Authenticated by: Johan Cohen MD. Ordering:UZAIR Madrigal MD
[2023-04-23] MEDS: Normal Saline 500 ML IV (02:10)
--- NOTE | 2023-04-23 02:59 | NUR.NOTE ---
Nursing Note: Received call from Richard at [facility] who was seeking an update on the patient. This RN advised [facility] that patient had been admitted to med surg floor for IV antibiotic administration and concern for UTI as cause of fever.
[2023-04-23] MEDS: Normal Saline Flush 10 ML SYR IVP ×2 (03:06→14:03)
[2023-04-23] MEDS: Lactated Ringers 1,000 ML 125 ML IV ×3 (03:07→21:29)
[2023-04-23] MEDS: Levothyroxine 25 MCG TAB PO (05:56)
[2023-04-23 06:36] LABS: HGB 12.4 g/dL (11.2-15.7); MCH 30.1 pg (27.0-33.0); MCHC 32.6 % (32.0-36.0); MCV 92 fL (80-95); MPV 10.6 fL (8.0-11.0); Platelet Count 161 10^3/uL (130-400); RBC 4.12 10^6/uL (3.93-5.22); RDW 16.1 % (11.7-14.6); RDW-SD 54.2 fL; WBC 5.16 10^3/uL (4.4-10.8)
[2023-04-23 06:58] LABS: ALT 23 U/L (14-59); AST 18 U/L (15-37); Albumin 2.7 g/dL (3.4-5.0); Alkaline Phosphatase 172 U/L (46-116); Anion Gap 7.5 mmol/L (3-11); BUN 10 mg/dL (7-18); Bilirubin, Total 0.5 mg/dL (0.2-1.0); CO2 27.5 mmol/L (21.0-32.0); CREATININE 0.6 mg/dL (0.55-1.02); Calcium 9.4 mg/dL (8.5-10.1); Chloride 103 mmol/L (98-107); Estimated GFR 114.15 (mL/min/1.73m2); Glucose 141 mg/dL (74-106); Magnesium 1.9 mg/dL (1.8-2.4); Potassium 3.9 mmol/L (3.5-5.1); Sodium 138 mmol/L (136-145); Total Protein 7.8 g/dL (6.4-8.2)
[2023-04-23 07:06] LABS: TSH (W/Ref FT4) 5.18 uIU/mL (0.36-3.74)
[2023-04-23 07:43] LABS: FREE T4 0.92 ng/dL (0.76-1.46)
[2023-04-23] MEDS: Calcium Carbonate 1.5 GM TAB PO ×2 (08:13→19:38)
[2023-04-23] MEDS: Ascorbic Acid 500 MG TAB PO (08:14)
[2023-04-23] MEDS: Fexofenadine 180 MG TAB PO (08:14)
[2023-04-23] MEDS: Baclofen 10 MG TAB 40 MG PO ×3 (08:14→19:38)
[2023-04-23] MEDS: DULoxetine 30 MG CAP 60 MG PO (08:15)
[2023-04-23] MEDS: Apixaban 2.5 MG TAB PO ×2 (08:16→19:39)
[2023-04-23] MEDS: Multivitamin TAB 1 TAB PO (08:16)
[2023-04-23] MEDS: Pregabalin 100 MG CAP PO ×3 (08:16→19:39)
[2023-04-23] MEDS: Docusate Sodium 100 MG CAP 200 MG PO ×2 (08:17→19:39)
[2023-04-23] MEDS: Polyethylene Glycol 3350 17 GM PACKET PO (08:18)
--- NOTE | 2023-04-23 08:58 | OT.INIE ---
Occupational Therapy Notes Inpatient Occupational Therapy Evaluation Date: 04/23/23 Referring Doctor: Dr. Salinas OT Orders/Precautions: Non Urgent, Fall, Standard, Full PATIENT PROFILE/ADMITTING DIAGNOSIS: Pt is a 42 year old female who presented to the ED and was admitted to [facility] with a dx of Urinary tract infection, Sepsis, pressure ulcer to buttock stage 3, hypothyroidism. Past Medical History: All Active Problems (Updated 04/23/23 @ 06:34 by Dami Salinas) Lactic acidosis (Acute) Pressure injury of buttock, stage 3 (Acute) Hypothyroidism (Chronic) UTI (urinary tract infection), bacterial (Acute) Advance care planning (Acute) Advance directive discussed with patient (Acute) Decreased activities of daily living (ADL) (Acute) Burning with urination (Acute) Full code status (Chronic) wants aggressive careLonely (Acute) Dysarthria (Acute) S/P partial glossectomy (Acute) History of tongue cancer (Acute) Wheelchair bound (Chronic) requires Christy lift to transfer; cannot stand and pivotNursing home resident (Acute) Palliative care patient (Acute) Pulmonary infiltrates on CXR (Acute) Abdominal pain (Acute) H/O: hysterectomy (Chronic) Spasticity (Acute) Diabetic neuropathy (Acute) Poor intravenous access (Acute) Blood loss anemia (Acute) Abnormal uterine bleeding (Acute) Breakthrough bleeding on Depo-Provera (Acute) SIRS (systemic inflammatory response syndrome) (Acute) Mass of tongue (Acute 06/29/17) Muscle spasticity (Acute 06/29/14) Neurogenic bladder (Acute 06/29/14) Neuropathic pain (Acute 06/29/14) Obesity (Acute 06/29/17) Obstructive sleep apnea (adult) (pediatric) (Acute 06/29/17) Rosacea (Acute 06/29/14) Type 2 diabetes mellitus with hyperglycemia (Chronic 11/06/16) Urinary incontinence (Acute 05/12/17) Urinary retention (Acute 05/12/17) 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) Hemochromatosis (Chronic) Tongue cancer (Acute) PEG tube malfunction (Acute) Disposition (Acute) Oral thrush (Acute) Feeding by G-tube (Acute) Neurogenic bladder (Chronic) Cellulitis and abscess of neck (Acute) 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 Pt uses adult diapers for incontinence. No clots.Catatonia DVT (deep venous thrombosis) Surgical History History of tracheostomy This was temporary after aspiration when the patient was younger as a complication of her JESSY/P percutaneous endoscopic gastrostomy (PEG) tube placement This is now not present have been removed patient able to swallowHistory of skin graft Patient states that he harvested from tendons and vessels from her right forearm and then took skin graft from her thigh to cover the defect on the right forearm as a treated her squamous cell carcinoma of her tongue with resection. Social History/Home Situation: Pt resides at [facility], she states that she is able to eat (I) and wash her upper body (I) but that she is max (A) for most of her other ADLs. Equipment owned/DME: DME needs met by SNF SUBJECTIVE: Pt states that she is tired and didn't fall asleep until 5 am this morning. She notes that she likes to be as (I) as possible. OBJECTIVE: General Observation: Pleasant, IV in (R) UE, telemetry in place, forward head and full body lean to the (R) side Mental Status: A&Ox4 Pain: 2-3/10 ROM: RUE limited shoulder flexion and elbow ROM, decreased extension of (R) digits to 90* actively, able to flex digits and then requires max (A) into full extension. (R) wrist stays flexed at 90* but pt is actively able to bring this to neutral L UE limited shoulder flexion and elbow ROM STRENGTH: RUE 3/5 LUE 4.5 FUNCTIONAL MOBILITY/ADLS: BATHING Baseline she states she is Bathing UE (I) UE Bathing LE Max (A) LE DRESSING max (A) at baseline, she can (A) with her UE but LE is max GROOMING Pt requires max (A) With brushing her hair and this is something that she would like to be more (I) with. EATING pt requires (A) with opening a closing containers but is able to feed herself (I) with use of (L) UE. BALANCE: Static sitting Fair-Good Dynamic Sitting Fair-good SPECIAL TESTS: Daily Activity Limitations Standardized Measure [facility] AM -PAC ?6 clicks? Daily Activity Inpatient Short Form: Raw score: 12 Standardized score: 30.60 CMS score: 66.57% INFORMED CONSENT/EDUCATION: Pt instructed in purpose of OT Consult and plan of care. ASSESSMENT: Patient is a 42-year-old female referred to occupational therapy services with diagnosis of Urinary tract infection, Sepsis, pressure ulcer to buttock stage 3, hypothyroidism. Patient presents with clinical signs and symptoms consistent with dx, as demonstrated by the following impairment level findings/functional limitations: Impairments in ADL/IADL and leisure activities, decreased (B) UE ROM chronic, non ambulatory without wheelchair, decreased functional activity tolerance, ulcer on buttock, requires (A) at her baseline level of function for her ADL/IADL Routines. AMPAC score 12 Patient is assessed as a Moderate 16575 complexity based on the following: History: see above Examination: see functional functional limitations as noted above Presentation: evolving Decision Making: AMPAC score 12 GOALS Goals x1 week 1. Therapeutic Exercise- pt will be (I) And compliant with HEP with ideal technique 2. Dressing (I) UE 3. Bathing (I) UE 4. Eating (I) PLAN OF CARE/TREATMENT PLAN: 1x/day, 3-5 days/ week x 1week Initiate Occupational Therapy Services for bathing, dressing, grooming, toileting, eating, transfer training. DISCHARGE RECOMMENDATIONS Return to SNF when medically cleared per MD. TREATMENT TIME/MINUTES/CODES 15896, 20 minutes (08:35) [facility] [place], [place]
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
--- NOTE | 2023-04-23 09:45 | IN_ITS ---
PT Notes Visit Reasons: UTI with early SIRS Inpatient Physical Therapy Evaluation Date: 04/23/2023 Referring Doctor: Dami Zavaleta MD PT Orders: PT CONSULT: Limited ability. Extended stay weakness. Exacerbation Chronic Cond. Baseline paraplegic. Mobilization ability recs while hospitalized Precautions: Standard. Paraplegic. Uses mechanical lift for all transfers. Patient Profile/Admitting Diagnosis: Patient is a 42-year-old female resident of [facility] with medical history significant for spastic paraplegia due to MS and S/P partial glossectomy admitted on 04/23/2023 due to fever and chronic L-sided hip ulcer. Patient is admitted for management of new diagnoses of UTI, SIRS, and lactic acidosis. and Lsided ulcer. PMHX: All Active Problems (Updated 04/23/23 @ 06:34 by Dami Salinas) Lactic acidosis (Acute) Pressure injury of buttock, stage 3 (Acute) Hypothyroidism (Chronic) UTI (urinary tract infection), bacterial (Acute) Advance care planning (Acute) Advance directive discussed with patient (Acute) Decreased activities of daily living (ADL) (Acute) Burning with urination (Acute) Full code status (Chronic) wants aggressive care Lonely (Acute) Dysarthria (Acute) S/P partial glossectomy (Acute) History of tongue cancer (Acute) Wheelchair bound (Chronic) requires Christy lift to transfer; cannot stand and pivot long-term resident (Acute) Palliative care patient (Acute) Pulmonary infiltrates on CXR (Acute) Abdominal pain (Acute) H/O: hysterectomy (Chronic) Spasticity (Acute) Diabetic neuropathy (Acute) Poor intravenous access (Acute) Blood loss anemia (Acute) Abnormal uterine bleeding (Acute) Breakthrough bleeding on Depo-Provera (Acute) SIRS (systemic inflammatory response syndrome) (Acute) Mass of tongue (Acute 06/29/17) Muscle spasticity (Acute 06/29/14) Neurogenic bladder (Acute 06/29/14) Neuropathic pain (Acute 06/29/14) Obesity (Acute 06/29/17) Obstructive sleep apnea (adult) (pediatric) (Acute 06/29/17) Rosacea (Acute 06/29/14) Type 2 diabetes mellitus with hyperglycemia (Chronic 11/06/16) Urinary incontinence (Acute 05/12/17) Urinary retention (Acute 05/12/17) 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) Hemochromatosis (Chronic) Tongue cancer (Acute) PEG tube malfunction (Acute) Disposition (Acute) Oral thrush (Acute) Feeding by G-tube (Acute) Neurogenic bladder (Chronic) Cellulitis and abscess of neck (Acute) 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 Pt uses adult diapers for incontinence. No clots. Catatonia DVT (deep venous thrombosis) Surgical History History of tracheostomy This was temporary after aspiration when the patient was younger as a complication of her MS S/P percutaneous endoscopic gastrostomy (PEG) tube placement This is now not present have been removed patient able to swallow History of skin graft Patient states that he harvested from tendons and vessels from her right forearm and then took skin graft from her thigh to cover the defect on the right forearm as a treatment for her squamous cell carcinoma of her tongue with resection. Social History/Home Situation: Patient is a resident of SNF. Total assist with all transfers. Main mode of mobility in facility is through use of motorized wheelchair. Equipment Owned/DME: Motorized wheelchair Subjective: States that she does not have fever anymore since this morning. Reports that she is at baseline mobility strength and mobility level. Did indicate that her swelling on the R side side of her jaw and her neck has been on and off and has worsened by her increased leaning to the right. Objective: General Observation: Increased trunk lean to the R. R LE in full internal rotation at the hip, fixed at 120 degrees flexion at the knee, tibial internal rotation at the knee, and 20 degrees plantarflexion as well as 10 degrees inversion at the ankle Mental Status: A and O x3, speech slightly unintelligible due to previous tongue surgery Pain: L hip at 5/10 when trunk is slowly pushed to midline toward her left side ROM: Right Upper Extremity: Shoulder flexion at 60 degrees. She is able to demonstrate full opening of the hand, although demonstrates significant flexor tone at rest. She also has visible atrophy of the hand intrinsics. Dexterity impaired. Left Upper Extremity: Shoulder flexion at 150 degrees. She is able to demonstrate full opening of the hand, although demonstrates significant flexor tone at rest. She also has visible atrophy of the hand intrinsics. Right Lower Extremity: R LE bent at the hips about 70-80 degrees and in full internal rotation at the hip, fixed at 120 degrees flexion at the knee, tibial internal rotation at the knee, and 20 degrees plantarflexion as well as 10 degrees inversion at the ankle Left Lower Extremity: Hip and knee in neutral position and 45 degrees of plantarflexion. Strength: Right Upper Extremity: Grossly 3-/5 Left Upper Extremity: Grossly 2-/5 Right Lower Extremity: N/A, paraplegia Left Lower Extremity: N/A, paraplegia Bed Mobility/Transfers: Rolling: moderate assist on either side, can use L UE to assist with rolling to R Supine to sit: Total dependence Bed to chair: Total dependence Gait: N/A. Paraplegic. Wheelchair-bound. Balance: Static Sitting: Unable Dynamic Sitting: Unable Static Standing: Unable Dynamic Standing: Unable Special Tests: Mobility Limitations Standardized Measure [facility] AM-PAC 6 clicks Basic Mobility Inpatient Short Form: Raw Score: 6 CMS Score: 100% deficit Informed Consent/Education: Patient instructed in purpose of PT consult and plan of care. ASSESSMENT: Patient is a 42-year-old female resident of [facility] with medical history significant for spastic paraplegia due to MS and S/P partial glossectomy admitted on 04/23/2023 due to fever and chronic L-sided hip ulcer. Patient is admitted for management of new diagnoses of UTI, SIRS, and lactic acidosis. Patient is at baseline mobility level and is able to move her B UE as previously instructed duirng previous admissions. She also has stage II secondary lymphedema of the R head and neck S/P partial glossectomy and will benefit from lymphedema management while on admission. Manual lymphatic drainage was initiated for this session as follows: Base of neck sequence Full head and neck MLD She has had her wheelchair for over 5 years now and she therefore will require full seating/wheelchair re-assessment at the [facility] to accommodate new postural deformities, prevent further skin breakdown, maximize positioning and comfort while improving activity participation as well as cardiorespiratory function. She currently demonstrated by the following impairment level findings: 1. Fixed flexion contracture right lower extremity 2. Neurogenic bladder 3. Decreased strength bilateral upper and lower 4. Decreased trunk control 5. Lymphedema of head and neck Impairments are contributing to the following functional limitations: 1. Dependent for transfers 2. Dependent for bed mobility 3. Non-ambulatory 4. Dependent for positioning of lower extremities 5. Impaired wheelchair positioning tolerance due to progressive postural deformities/joint contracture Patient is assessed as High 44178 complexity based on the following: History: Patient is a 42-year-old female resident of SNF with medical history significant for spastic paraplegia due to MS and S/P partial glossectomy admitted on 04/23/2023 due to fever and chronic L-sided hip ulcer. Patient is admitted for management of new diagnoses of UTI, SIRS, and lactic acidosis. Examination: Functional limitations as noted above Presentation: Evolving Decision Makin high complexity Plan of Care/Treatment Plan: Patient will benefit from lymphedma management 1x/day while on admission. DISCHARGE RECOMMENDATIONS: Return to SNF when medically cleared. Will benefit from outpatient lymphedema management to maintain head/neck AROM, minimize pain, and facilitate optimal head/neck positioning. TREATMENT CODE/TIME: 46435 x 20 minutes for 1 unit, 43338 x 21 minutes beginning at 9:45 AM. Thank you for the opportunity to participate in the care of this patient. Kitty Ellis PT, DPT, CLT [facility] [place], [place]
--- NOTE | 2023-04-23 12:23 | W.NUTRFU ---
Date of service: 04/23/23 Time of Service: 12:24 Nutrition Note NOTE: Ethel is a 42yo female admitted for lactic acidosis. Currently has stage 3 pressure ulcer on L buttock. She has a history of tongue cancer with partial glossectomy. Hx of DMII with A1C of 5.9 04/01/23. She is getting glucose finger sticks [facility]S and managed in the hospital with sensitive sliding scale of insulin aspart. Ordered for carb consistent diet with soft and bits size, thin liquid consistencies. Says she is tolerating diet well but needs help with tray set-ups. Pt allergy to red dye noted as well as general menu preferences. Estimated nutrition needs: 1587kcals (25kcals/kg), 95g protein, (1.5g/kg for healing of pressure ulcer), and 1587mL fluid (1mL per required kcal). Reviewed extra protein needs with Ethel who will try a why protein smoothie supplement from the kitchen and consider taking them BID if she finds them palatable. Also agreeable to concentrated protein liquid TID via Rx TID for an additional 45g protein daily. Recommend continue insulin coverage with current order and continue carb consistent diet with added protein for wound healing through higher protein menu choices, whey protein smoothies and requested liquid protein concentrate. Will continue to monitor intake, weight, pertinent labs. Time Spent in Nutritional Counseling and Treatment: 30 minutes
--- NOTE | 2023-04-23 17:31 | CHAPLAIN ---
[facility] She was resting in bed when I visited this morning. Ethel said she's comfortable. She hasn't yet called her mother to let her know that she's here, but plans to do that. I explained my role and offered support.
[2023-04-23] MEDS: Insulin Aspart 300 UNITS/3 ML PEN SC (19:03)
[2023-04-23] MEDS: clonazePAM 1 MG TAB 0.5 MG PO (19:38)
[2023-04-23] MEDS: Melatonin 3 MG TAB 10.5 MG PO (21:30)
[2023-04-24] MEDS: Normal Saline Flush 10 ML SYR IVP ×4 (01:44→20:12)
[2023-04-24] MEDS: IMIPENEM/CILASTATIN 500 MG in Normal Saline 100 ML 200 MG IVPB ×4 (01:45→20:13)
[2023-04-24 03:28] VITALS: BP 105/69; PULSE 87; RESP 16; TEMP 37.3; O2SAT 94
[2023-04-24] MEDS: Levothyroxine 25 MCG TAB PO (05:21)
[2023-04-24] MEDS: Lactated Ringers 1,000 ML 125 ML IV ×2 (05:23→15:40)
[2023-04-24 07:49] VITALS: BP 92/64; PULSE 87; RESP 18; TEMP 36.7; O2SAT 94
[2023-04-24] MEDS: Calcium Carbonate 1.5 GM TAB PO ×2 (08:10→20:11)
[2023-04-24] MEDS: Multivitamin TAB 1 TAB PO (08:11)
[2023-04-24] MEDS: Ascorbic Acid 500 MG TAB PO (08:11)
[2023-04-24] MEDS: Docusate Sodium 100 MG CAP 200 MG PO ×2 (08:12→20:10)
[2023-04-24] MEDS: Pregabalin 100 MG CAP PO ×3 (08:12→20:11)
[2023-04-24] MEDS: DULoxetine 30 MG CAP 60 MG PO (08:13)
[2023-04-24] MEDS: Baclofen 10 MG TAB 40 MG PO ×3 (08:13→20:11)
[2023-04-24] MEDS: Fexofenadine 180 MG TAB PO (08:13)
[2023-04-24] MEDS: Polyethylene Glycol 3350 17 GM PACKET PO (08:14)
[2023-04-24] MEDS: Apixaban 2.5 MG TAB PO ×2 (08:15→20:11)
--- NOTE | 2023-04-24 09:02 | RESPIRATORY ---
RT seen pt. for TREVIN diagnosis. Pt. advised that she does not use any breathing machine and never had one.
--- NOTE | 2023-04-24 09:18 | PDOC.CMPRO ---
Date of service: 04/24/23 Time of Service: 09:18 Care Management Progress Note Progress Note Text Progress Note Text: S/O: Ethel was lying in bed when CM met with her. She stated that she is doing ok, although she was very hot overnight. CM asked if she was febrile, but she stated that she simply runs hot. She stated that she prefers to be home at [facility], where she has the ability to have her window open. Per report, she is not yet medically cleared, as her blood cultures were repeated today, so she will likely remain at [facility] over the weekend. She is agreeable to the plan. CM will continue to follow. A: Ethel is a 42 year old female admitted to [facility] on 04/23/23 for UTI with early SIRS. P: Anticipate Ethel will return to [facility] once medically cleared. She will transport via [facility], coordinated by [facility]. She will follow up with her PCP and discharge plan of care. CM will continue to follow.
[2023-04-24 10:39] LABS: Lactate 1.1 mmol/L (0.6-1.4)
[2023-04-24 10:40] LABS: Abs Immature Grans 0.04 10^3/uL (0.0-0.06); Absolute Basophil Count 0.03 10^3/uL (0.0-0.2); Absolute Eosinophil Count 0.15 10^3/uL (0.0-0.7); Absolute Lymphocyte Count 0.96 10^3/uL (1.2-3.4); Absolute Monocyte Count 0.35 10^3/uL (0.1-0.8); Absolute Neutrophil Count 4.92 10^3/uL (1.2-6.7); Basophils % 0.5; Eosinophils % 2.3; HCT 29.3 % (36.0-46.0); HGB 9.6 g/dL (11.2-15.7); Immature Grans % 0.6; Lymphocytes % 14.9; MCH 30.2 pg (27.0-33.0); MCHC 32.8 % (32.0-36.0); MCV 92 fL (80-95); MPV 10.6 fL (8.0-11.0); Monocytes % 5.4; Neutrophils % 76.3; Platelet Count 201 10^3/uL (130-400); RBC 3.18 10^6/uL (3.93-5.22); RDW 15.9 % (11.7-14.6); RDW-SD 53.5 fL; WBC 6.45 10^3/uL (4.4-10.8)
[2023-04-24 10:56] LABS: Anion Gap 7.6 mmol/L (3-11); BUN 8 mg/dL (7-18); CO2 29.4 mmol/L (21.0-32.0); CREATININE 0.5 mg/dL (0.55-1.02); Calcium 9.5 mg/dL (8.5-10.1); Chloride 102 mmol/L (98-107); Estimated GFR 119.27 (mL/min/1.73m2); Glucose 134 mg/dL (74-106); Potassium 3.7 mmol/L (3.5-5.1); Sodium 139 mmol/L (136-145)
[2023-04-24] MEDS: Insulin Aspart 300 UNITS/3 ML PEN SC (12:14)
--- NOTE | 2023-04-24 14:18 | W.PM.PROGNOT ---
Date of Service Date of service: 04/24/23 Time of Service: 14:18 Assessment and Plan Assessment and plan (1) Positive blood cultures: Status: Acute Assessment and plan: one tube from admission positive for gram positive cocci, second tube negative to date urine growing gram negative osito suspect contaminant. blood cultures repeated today, no evidence of untreated infection clinically, continue to monitor with no antibiotic changes. (2) Sepsis: Status: Resolved Assessment and plan: due to UTI and resolved on IV hydration and antibiotics (3) UTI (urinary tract infection), bacterial: Status: Acute Assessment and plan: continue day 2 of imipenem pending urine culture reports. patient with multiple allergies and based on last culture report of pseudomonas aeruginosa, which was sensitive to imipenem. (4) Type 2 diabetes mellitus with hyperglycemia: Status: Chronic Assessment and plan: diet controlled with A1C 5.9 in mar 2023 continue diabetic diet, sliding scale coverage as needed. 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 (6) Discharge planning issues: Status: Acute Assessment and plan: dvt prophylaxis: chronically on apixaban discharge planning anticipate back to health and rehab when medically stable discussed with DR Szymanski Subjective Subjective Patient reports: no new complaints and afebrile; denies shortness of breath Exam Narrative Exam Narrative: chronically ill-appearing female older than stated age, lying in bed, well perfused no acute distress. Const General: no acute distress Nutritional Appearance: obese Other: difficult to understand her speech secondary to previous tongue resection [facility] Head: normocephalic and atraumatic Mouth: oral mucosae normal Eyes Periorbital: periorbital findings normal Conjunctivae: conjunctival abnormality (Slightly pale) bilaterally Cornea: corneas normal Pupils: PERRL EOM: EOM intact bilaterally Direct ophthalmoscopy: normal light reflex Other: No photophobia Neck Neck: normal visual inspection Other: Neck reveals what appears to be a previous resection on the right. Trachea is midline. No meningeal signs Chest Other: Chest is nontender she has symmetric expansion Resp Effort & Inspection: normal respiratory effort Auscultation: diminished lung sounds Other: Lungs are clear to auscultation without wheezing rales or rhonchi. Cardio Rate: regular rate Rhythm: regular rhythm Other: Heart has regular rate and rhythm. No murmur rub or gallop. PMI is not displaced GI Inspection: obesity Palpation: soft Other: Her abdomen is soft nontender nondistended. No hepatosplenomegaly. Normal active bowel sounds. Previous surgical scar. There is a well-healing pressure sore on the upper aspect of the left buttock Back/Spine/Pelvis Other: The patient has significant lordosis. There is no midline tenderness step-off or bony crepitus. No point tenderness Neuro General: patient alert, patient awake and patient oriented x3 Extrem General: limp, muscle atrophy of the right lower extremity and of the left lower extremity and other (upper extremity contractures.) Psych Affect: blunted Objective Last Vital Signs Temp 36.7 C 04/24/23 07:49 Pulse 87 04/24/23 07:49 Resp 18 04/24/23 07:49 BP 92/64 L 04/24/23 07:49 Pulse Ox 94 04/24/23 07:49 Laboratory Results - last 24 hr 04/24/23 10:31 WBC 6.45 RBC 3.18 L Hgb 9.6 L D Hct 29.3 L MCV 92 MCH 30.2 MCHC 32.8 RDW 15.9 H Plt Count 201 MPV 10.6 Immature Gran % 0.6 Neutrophils % 76.3 Lymphocytes % 14.9 Monocytes % 5.4 Eosinophils % 2.3 Basophils % 0.5 Nucleated RBC % 0.0 Absolute Neutrophils 4.92 Absolute Lymphocytes 0.96 L Absolute Monocytes 0.35 Absolute Eosinophils 0.15 Absolute Basophils 0.03 VBG Lactate 1.1 Sodium 139 Potassium 3.7 Chloride 102 Carbon Dioxide 29.4 Anion Gap 7.6 BUN 8 Creatinine 0.5 L Est GFR (CKD-EPI 2020) 119.27 Glucose 134 H Calcium 9.5 PAWSS Have you Been Recently Intoxicated or Drunk Within the Last 30 days?: No Have you Ever Experienced Previous Episodes of Alcohol Withdrawal?: No Have you ever Experienced Withdrawal Seizures?: No Have you ever Experienced Delirium Tremens(DT)s?: No Have you ever undergone Alcohol Rehabilitation Treatment (i.e, inpt ot outpatient treatment programs)?: No Have you ever Experienced Blackouts?: No Have you ever Combined Alcohol with other Downers within the last 90 days?: No Have you ever Combined Alcohol with any other Substance of Abuse during the last 90 days?: No Positive Blood Alcohol level on Presentation? [PCS.BAL]: No Evidence of Increased Autonomic Activity (i.e. HR>120, tremor, sweating, agitation, nausea)?: No Result: 0 Time Spent with Patient Time Spent with Patient: 35-49 minutes Time was spent: preparing to see the patient(eg.review tests), obtaining and/or reviewing separately otained hiistory, ordering medications,tests, procedures and indepentently interpreting results
[2023-04-24 16:38] VITALS: BP 95/65; PULSE 95; RESP 16; TEMP 37.3; O2SAT 99
[2023-04-24] MEDS: clonazePAM 1 MG TAB 0.5 MG PO (20:10)
[2023-04-24 21:06] VITALS: BP 113/69; PULSE 99; RESP 18; TEMP 37.8; O2SAT 98
[2023-04-24] MEDS: Melatonin 3 MG TAB 10.5 MG PO (21:35)
[2023-04-24 23:41] VITALS: BP 123/82; PULSE 105; RESP 18; TEMP 38.3; O2SAT 95
[2023-04-25] MEDS: Lactated Ringers 1,000 ML 125 ML IV ×2 (00:10→07:39)
[2023-04-25] MEDS: IMIPENEM/CILASTATIN 500 MG in Normal Saline 100 ML 200 MG IVPB ×2 (01:29→07:43)
[2023-04-25 03:17] VITALS: BP 102/68; PULSE 93; RESP 17; TEMP 37.2; O2SAT 95
[2023-04-25] MEDS: Levothyroxine 25 MCG TAB PO (05:26)
[2023-04-25 06:52] VITALS: BP 105/70; PULSE 86; RESP 20; TEMP 36.7; O2SAT 94
[2023-04-25] MEDS: Normal Saline Flush 10 ML SYR IVP (07:41)
[2023-04-25] MEDS: Multivitamin TAB 1 TAB PO (07:48)
[2023-04-25] MEDS: Pregabalin 100 MG CAP PO (07:48)
[2023-04-25] MEDS: Ascorbic Acid 500 MG TAB PO (07:48)
[2023-04-25] MEDS: Baclofen 10 MG TAB 40 MG PO (07:49)
[2023-04-25] MEDS: Apixaban 2.5 MG TAB PO (07:49)
[2023-04-25] MEDS: Fexofenadine 180 MG TAB PO (07:49)
[2023-04-25] MEDS: DULoxetine 30 MG CAP 60 MG PO (07:49)
[2023-04-25] MEDS: Polyethylene Glycol 3350 17 GM PACKET PO (07:50)
[2023-04-25] MEDS: Docusate Sodium 100 MG CAP 200 MG PO (07:50)
[2023-04-25] MEDS: Calcium Carbonate 1.5 GM TAB PO (08:41)
[2023-04-25 11:17] VITALS: BP 100/68; PULSE 86; RESP 22; TEMP 37.1; O2SAT 95
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
[2023-04-25] MEDS: Insulin Aspart 300 UNITS/3 ML PEN SC (12:52)
--- NOTE | 2023-04-25 14:29 | PDOC.CMDIS ---
Date of service: 04/25/23 Time of Service: 14:29 LACE Index Scoring Tool Questions: Length of Stay (in days): 2 Was the patient admitted via the E.D.?: Yes Comorbidities: Diabetes w/o Complication, Any Tumor and Connective Tissue Disease E.D. Visits: 3 Answers: Total Score: 13 Risk of Readmission: High Risk Care Management Discharge Plan Reason for Hospitalization: UTI with SIRS Discharge Plan: Ethel [facility]. She will transport via [facility], coordinated by CM. She will follow up with her PCP and discharge plan of care. Patient/Family Education Needs: Review discharge instructions and limitations, discussion of self care needs including ask me three. Services Needed at Discharge: Long Term Facility
== END 2023-04-25 14:09 | disposition skilled nursing facility (03) | DRG 871 ==
LOC: ER 04-23 02:03 → MS 04-23 02:37
PROVIDERS: Nurse Practitioner Acute Care; Admitting Provider Family Medicine; Emergency Provider Student in an Organized Health Care Education/Training Program; PCP Family Medicine; Visit Provider Family Medicine
DX: A41.9 Sepsis, unspecified organism (principal); L89.323 Pressure ulcer of left buttock, stage 3; N39.0 Urinary tract infection, site not specified; E87.21 Acute metabolic acidosis; G82.20 Paraplegia, unspecified; G35 Multiple sclerosis; E11.65 Type 2 diabetes mellitus with hyperglycemia; R25.2 Cramp and spasm; E03.9 Hypothyroidism, unspecified; Z85.810 Personal history of malignant neoplasm of tongue; Z99.3 Dependence on wheelchair; E11.40 Type 2 diabetes mellitus with diabetic neuropathy, unspecified; N31.9 Neuromuscular dysfunction of bladder, unspecified; E66.9 Obesity, unspecified; G47.33 Obstructive sleep apnea (adult) (pediatric); R32 Unspecified urinary incontinence; R33.9 Retention of urine, unspecified; E83.119 Hemochromatosis, unspecified; Z86.718 Personal history of other venous thrombosis and embolism; F06.31 Mood disorder due to known physiological condition with depressive features; Z79.01 Long term (current) use of anticoagulants; B96.1 Klebsiella pneumoniae [K. pneumoniae] as the cause of diseases classified elsewhere; Z68.27 Body mass index [BMI] 27.0-27.9, adult
CPT/HCPCS: 00123; 36415; 80048; 80053; 84145; 85027; 85652; 87040; 87077; 87637; 93005; 96365; 97140; 97163; 97166; 99291; 71045; 73502; 81003; 81015; 83605; 83735; 84439; 84443; 84484; 85025; 86140; 87086; 87186; 93010; 99223; 99233; 99239; J0743; J3490

== ENCOUNTER → 2023-05-06 10:43 | Outpatient (BNVA) | payer MEDICARE, MEDICAID, SELFPAY | PROVIDERS: PCP Family Medicine; Visit Provider Psychiatry & Neurology Neurology | DX: G35 Multiple sclerosis (principal); M62.838 Other muscle spasm; E11.42 Type 2 diabetes mellitus with diabetic polyneuropathy; G82.20 Paraplegia, unspecified | CPT/HCPCS: 99214 ==

== ENCOUNTER → 2023-05-12 13:34 | Outpatient (BNVA) | payer MEDICARE, MEDICAID, SELFPAY | PROVIDERS: PCP Family Medicine; Referring Provider Family Medicine; Visit Provider Surgery | DX: S71.002A Unspecified open wound, left hip, initial encounter (principal); X58.XXXA Exposure to other specified factors, initial encounter | CPT/HCPCS: 99306 ==

== ENCOUNTER 2023-05-13 12:55 | Emergency (ER) | payer MEDICARE, MEDICAID, SELFPAY ==
[2023-05-13 12:48] VITALS: BP 96/59; PULSE 89; RESP 16; TEMP 36.4; O2SAT 95
[2023-05-13 12:53] VITALS: BP 96/59; PULSE 89; RESP 16; TEMP 36.4; O2SAT 95
--- NOTE | 2023-05-13 13:00 | DI.RAD_ITS ---
Exam(s) XR PORTABLE CHEST AP EXAM: XR PORTABLE CHEST AP CLINICAL HISTORY: hypotension. TECHNIQUE: 2D digital imaging was performed. COMPARISON: CR,XR XR CHEST 1V IN DI DEPT from 04/23/2023 FINDINGS: Single AP portable view. Heart size is upper normal. The mediastinum is not widened. There is infiltrate in the right upper lobe right suprahilar region. Left lung is clear. There are no pleural effusions. IMPRESSION: Right para-suprahilar lung infiltrate. No pleural effusions. DATA REPOSITORY: RADIATION DOSE DELIVERED:
[2023-05-13 13:43] LABS: Abs Immature Grans 0.01 10^3/uL (0.0-0.06); Absolute Basophil Count 0.02 10^3/uL (0.0-0.2); Absolute Eosinophil Count 0.09 10^3/uL (0.0-0.7); Absolute Lymphocyte Count 0.46 10^3/uL (1.2-3.4); Absolute Monocyte Count 0.19 10^3/uL (0.1-0.8); Basophils % 0.4; Eosinophils % 1.8; HGB 9.8 g/dL (11.2-15.7); Immature Grans % 0.2; Lymphocytes % 9.3; MCH 28.5 pg (27.0-33.0); MCHC 31.6 % (32.0-36.0); MCV 90 fL (80-95); MPV 10.1 fL (8.0-11.0); Monocytes % 3.8; Neutrophils % 84.5; Platelet Count 261 10^3/uL (130-400); RBC 3.44 10^6/uL (3.93-5.22); RDW 15.9 % (11.7-14.6); RDW-SD 51.8 fL; WBC 4.97 10^3/uL (4.4-10.8)
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
[2023-05-13 14:00] LABS: ALT 13 U/L (14-59); AST 12 U/L (15-37); Albumin 2.1 g/dL (3.4-5.0); Alkaline Phosphatase 127 U/L (46-116); Anion Gap 6.4 mmol/L (3-11); BUN 8 mg/dL (7-18); Bilirubin, Total 0.4 mg/dL (0.2-1.0); CO2 31.6 mmol/L (21.0-32.0); CREATININE 0.6 mg/dL (0.55-1.02); Calcium 9.4 mg/dL (8.5-10.1); Chloride 102 mmol/L (98-107); Estimated GFR 114.15 (mL/min/1.73m2); Glucose 133 mg/dL (74-106); Potassium 4.2 mmol/L (3.5-5.1); Sodium 140 mmol/L (136-145); Total Protein 8.2 g/dL (6.4-8.2)
[2023-05-13] MEDS: Normal Saline 1,000 ML 1000 ML IV (14:54)
[2023-05-13] MEDS: ACETAMINOPHEN 1,000 MG/100 ML BTL 400 MG IVPB (15:00)
[2023-05-13] MEDS: Ondansetron 4 MG/2 ML VIAL IVP (15:00)
[2023-05-13 15:57] LABS: Bilirubin Negative (Negative); Blood Negative (Negative); Clarity Sl Cloudy (Clear); Glucose Negative (Negative); Ketones Negative (Negative); Leukocyte Esterase Small (Negative); Nitrite Negative (Negative)
[2023-05-13 16:16] LABS: Bacteria Moderate HPF (Negative); C & S Indicated? Yes; Casts Negative LPF (Negative); Crystals Negative HPF (Negative); Epithelial Cells Few HPF (Negative); Mucus Trace (Negative); RBC 0-2 HPF (0-2)
[2023-05-13 16:32] LABS: COVID-19 PCR Negative (Negative); Influenza A PCR Negative (Negative); Influenza B PCR Negative (Negative); RSV PCR Negative (Negative)
[2023-05-13 16:33] LABS: Source Nasopharynx
== END 2023-05-13 17:06 | disposition home or self-care (01) ==
PROVIDERS: Emergency Provider Emergency Medicine; PCP Family Medicine
DX: R11.2 Nausea with vomiting, unspecified (principal); R53.83 Other fatigue; J18.9 Pneumonia, unspecified organism; L89.323 Pressure ulcer of left buttock, stage 3; G35 Multiple sclerosis; E03.9 Hypothyroidism, unspecified; Z79.899 Other long term (current) drug therapy
CPT/HCPCS: 36415; 80053; 87040; 87077; 87637; 96361; 96374; 96375; 99284; 71045; 81003; 81015; 85025; 87086; 87186; J0131; J2405

== ENCOUNTER → 2023-06-09 14:06 | Outpatient (BNVA) | payer MEDICARE, MEDICAID, SELFPAY | PROVIDERS: PCP Family Medicine; Referring Provider Family Medicine; Visit Provider Physical Therapy Assistant | DX: L89.151 Pressure ulcer of sacral region, stage 1 (principal); T14.8XXA Other injury of unspecified body region, initial encounter | CPT/HCPCS: 99215 ==

== ENCOUNTER 2023-06-16 22:06 | Inpatient (IN) | payer MEDICARE, MEDICAID, SELFPAY ==
[2023-06-16] VITALS (19 sets, daily range): BP systolic 99–147; BP diastolic 53–87; PULSE 133–147; RESP 18–34; TEMP 36.8; O2SAT 87–97
--- NOTE | 2023-06-16 22:15 | RT.EKG_ITS ---
APPROVED REPORT Exam: Resting ECG Reason for Exam: rapid heart rate Patient Location: E HR:149 bpm ECG Measurements Heart Rate 149 AXIS ID 116 P 81 QRSd 67 QRS 86 QT 284 T -32 QTc 447 Conclusion Sinus tachycardia...rate> [address] segment or T wave abnormalities to suggest occlusive SC
--- NOTE | 2023-06-16 22:15 | DI.RAD_ITS ---
Exam(s) XR PORTABLE CHEST AP EXAM: XR PORTABLE CHEST AP CLINICAL HISTORY: sepsis TECHNIQUE: 2D digital imaging was performed of the chest. One image was obtained. An AP view was ob tained. COMPARISON: CR XR PORTABLE CHEST AP from 05/13/2023 FINDINGS: There is poor inspiration. MEDIASTINUM: Normal. HEART: Normal. PULMONARY VASCULATURE: Normal. LUNGS: Clear. PLEURAL SPACE: No pleural effusion or pneumothorax. BONE:Within normal limits for the patient's age. OTHER FINDINGS:Normal. IMPRESSION: No acute pulmonary findings. DATA REPOSITORY: RADIATION DOSE DELIVERED:
--- NOTE | 2023-06-16 22:15 | RT.EKG_ITS ---
APPROVED REPORT Exam: Resting ECG Reason for Exam: tachycardia Patient Location: E HR:121 bpm ECG Measurements Heart Rate 121 AXIS OR 161 P 72 QRSd 62 QRS 76 QT 300 T -51 QTc 426 Conclusion Sinus tachycardia...rate> 99 Low voltage, precordial leads...precordial leads <1.0mV
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
[2023-06-16 22:35] LABS: Source Nasopharynx
[2023-06-16 22:46] LABS: BE (Venous) 6 mmol/L (-2-3); HCO3 (Venous) 30 mmol/L (23-28); O2 Sat (Venous) 99 %; TCO2 (Venous) 27 mmol/L (24-29); pCO2 (Venous) 40 mmHg (41-51); pH (Venous) 7.47 (7.31-7.41); pO2 (Venous) 95 mmHg
[2023-06-16 22:48] LABS: Abs Immature Grans 0.03 10^3/uL (0.0-0.06); Absolute Basophil Count 0.02 10^3/uL (0.0-0.2); Absolute Eosinophil Count 0.05 10^3/uL (0.0-0.7); Absolute Lymphocyte Count 0.47 10^3/uL (1.2-3.4); Absolute Neutrophil Count 5.04 10^3/uL (1.2-6.7); Basophils % 0.3; Eosinophils % 0.8; HCT 35.2 % (36.0-46.0); Immature Grans % 0.5; MCH 27.6 pg (27.0-33.0); MCHC 31.3 % (32.0-36.0); MCV 88 fL (80-95); MPV 10.2 fL (8.0-11.0); Monocytes % 5.1; Neutrophils % 85.3; Platelet Count 328 10^3/uL (130-400); RBC 3.98 10^6/uL (3.93-5.22); RDW 17.9 % (11.7-14.6); RDW-SD 57.7 fL; WBC 5.91 10^3/uL (4.4-10.8)
[2023-06-16 22:49] LABS: Lactate 0.9 mmol/L (0.6-1.4)
[2023-06-16 22:57] LABS: Bilirubin Negative (Negative); Blood Trace-intact (Negative); Clarity Cloudy (Clear); Glucose Negative (Negative); Ketones Negative (Negative); Leukocyte Esterase Small (Negative); Nitrite Negative (Negative); pH 8.5 (5-8)
[2023-06-16] MEDS: Normal Saline 1,000 ML 1000 ML IV ×2 (22:59→23:00)
[2023-06-16] MEDS: LINEZOLID 600 MG/300 ML BAG 300 MG IVPB (23:01)
[2023-06-16 23:05] LABS: Epithelial Cells Rare HPF (Negative); Other Cells Rare Transitional (Negative); RBC 0-2 HPF (0-2)
[2023-06-16] MEDS: Ketorolac 15 MG/ML VIAL IVP (23:05)
[2023-06-16 23:06] LABS: Bacteria Few HPF (Negative); C & S Indicated? Yes; Casts Negative LPF (Negative); Crystals Many Amorphous HPF (Negative); Mucus Negative (Negative)
[2023-06-16 23:07] LABS: COVID-19 PCR Negative (Negative)
[2023-06-16] MEDS: MEROPENEM 1 GM in Normal Saline 100 ML IVPB (23:08)
[2023-06-16 23:13] LABS: ALT 16 U/L (14-59); AST 19 U/L (15-37); Albumin 2.6 g/dL (3.4-5.0); Alkaline Phosphatase 190 U/L (46-116); Anion Gap 6.1 mmol/L (3-11); BUN 10 mg/dL (7-18); Bilirubin, Total 0.4 mg/dL (0.2-1.0); CO2 28.9 mmol/L (21.0-32.0); CREATININE 0.7 mg/dL (0.55-1.02); Calcium 9.2 mg/dL (8.5-10.1); Chloride 99 mmol/L (98-107); Estimated GFR 109.98 (mL/min/1.73m2); Glucose 183 mg/dL (74-106); Potassium 3.9 mmol/L (3.5-5.1); Sodium 134 mmol/L (136-145); Total Protein 8.5 g/dL (6.4-8.2)
[2023-06-16 23:18] LABS: HCG Quant, Pregnancy < 1 mIU/mL (1-3)
[2023-06-16 23:27] LABS: Procalcitonin 0.9 ng/mL
--- NOTE | 2023-06-16 23:35 | DI.CT_ITS ---
Exam(s) CT CHEST PE ABD PELVIS W EXAM: CT CHEST PE ABD PELVIS W CLINICAL HISTORY: tachycardia hypoxia. TECHNIQUE: Imaging Protocol: Axial CT angiography was performed with multi-slice acquisition and mu lti-planar and/or 3D reconstructions. CONTRAST MATERIAL: Intravenous: Omnipaque 350contrast volume:100 mL COMPARISON: CT CT CHEST PE CTA from 09/27/[address] RENAL COLIC WO from 12/06/2022 CR,XR XR HIP LT COMPLETE AP PELVIS from 04/23/2023 FINDINGS: The examination is limited due to patient motion artifact. CHEST: Tracheobronchial tree: Patent where visualized. Pulmonary parenchyma: No consolidation or dominant measurable mass. There is atelectasis in the lung bases. Pulmonary Arteries: Peripheral pulmonary artery evaluation is limited due to patient motion artifact. No evidence of filling defect to suggest pulmonary emboli. Mediastinum and April: No dominant adenopathy or fluid collection. The esophagus is unremarkable. Visualized thyroid gland: Unremarkable. Pleura: No effusion or pneumothorax. Heart: The heart is not dilated. No coronary artery calcifications are seen. No pericardial effusion. Aorta: Thoracic aorta non-dilated. No evidence of dissection. Bones: Within normal limits for the patient's age. Soft tissues: Unremarkable. ABDOMEN: Liver: Normal density. There are few tiny hypodensities in the liver. They are too small for further characterization but likely reflect small cysts. No suspicious hepatic masses are seen. Portal, Superior Mesenteric, and Splenic Veins: Unremarkable. Gallbladder and Biliary Tract: No radiodense calculus or dilation. Pancreas: Normal density, no abnormal calcifications or inflammatory process. Spleen: Normal. Adrenals: No masses seen. Kidneys: Normal size, contour and axis. No radiodense stones or obstructive uropathy. No masses seen. Abdominal Aorta: Abdominal portion non-dilated. Atherosclerosis. Bowel: There is a large amount of stool in the rectum which may reflect fecal impaction. There is st ool throughout the colon suggesting constipation. There is no evidence of bowel obstruction or bowel wall thickening. No evidence of appendicitis. Peritoneal Cavity: No ascites, collection or mesenteric inflammatory response. No free air. Lymph Nodes: Within normal limits. Bones: Within normal limits for the patient's age. There is a chronic posterior subluxation of the r ight hip. There are destructive changes of the left ischium with an associated air-fluid collection in the adjacent soft tissues measuring at least 7.3 x 3.1 cm. This extends to the skin surface and i s most suggestive consistent with abscess and cubitus ulcer. Soft Tissues: Unremarkable. PELVIS: Bladder: The urinary bladder is decompressed with a Melendez catheter in place. There is diffuse thicke haresh of the wall of the urinary bladder. Reproductive Organs: Unremarkable as visualized. Lymph Nodes: Within normal limits. Bones: Within normal limits. IMPRESSION: 1. No evidence pulmonary embolism, thoracic aortic dissection or aneurysm. 2. Bilateral basilar atelectasis. 3. Findings concerning for osteomyelitis involving the left ischium. There is an associated fluid co llection adjacent to these ischium consistent with an abscess. It measures at least 7.3 x 3.1 cm. T here is overlying skin abnormality consistent with a decubitus ulcer. RADIATION DOSE DELIVERED: 1,482.03mGy.cm Total DLP DATA REPOSITORY: All CT scans at this facility are submitted to the National Radiology Data Registry (NRDR) Dose Index Registry (DIR) with the [employer] (ACR). RADIATION OPTIMIZATION: All CT scans at this facility use at least one of these dose optimization te chniques: automated exposure control; mA and/or kV adjustment per patient size (includes targeted exa ms where dose is matched to clinical indication); or iterative reconstruction.
[2023-06-16] MEDS: Omnipaque 350 MG/ML 100 ML BTL IJ (23:43)
[2023-06-16] MEDS: Normal Saline - Diluent 50 ML VIAL IJ (23:44)
[2023-06-16] MEDS: Normal Saline Flush 10 ML SYR IVP (23:45)
--- NOTE | 2023-06-16 23:47 | DI.VRAD_ITS ---
PROCEDURE INFORMATION: Exam: XR Chest Exam date and time: 06/16/2023 11:20 PM Age: 42 years old Clinical indication: Other: Sepsis TECHNIQUE: Imaging protocol: Radiologic exam of the chest. Views: 1 view. COMPARISON: CR XR PORTABLE CHEST AP 05/13/2023 2:04 PM FINDINGS: Lungs: Normal. Pleural spaces: Unremarkable. No pleural effusion. No pneumothorax. Heart/Mediastinum: Normal. Bones/joints: Multilevel thoracic spine degenerative disc space narrowing and osteophyte formation. IMPRESSION: No acute cardiopulmonary abnormality. Dictated and Authenticated by: Francois Gurrola MD. Ordering:GLADYS Calvillo MD
[2023-06-16 23:48] LABS: TSH (W/Ref FT4) 2.02 uIU/mL (0.36-3.74)
[2023-06-17] VITALS (191 sets, daily range): BP systolic 62–181; BP diastolic 42–96; PULSE 93–140; RESP 2–44; TEMP 36.6–38.3; O2SAT 2–99
[2023-06-17] MEDS: Albuterol/Ipratropium 3 ML UPD VIAL UPD (00:17)
--- NOTE | 2023-06-17 00:36 | DI.VRAD_ITS ---
PROCEDURE INFORMATION: Exam: CTA Chest With Contrast CTA Abdomen With Contrast Exam date and time: 06/16/2023 11:53 PM Age: 42 years old Clinical indication: Other: Sepsis unknow origin; Patient HX: Tachycardia hypoxia, sepsis, unknown origin TECHNIQUE: Imaging protocol: Computed tomographic angiography of the chest with contrast. Exam focused on the arteries. Computed tomographic angiography of the abdomen with contrast. Exam focused on the arteries. 3D rendering (Not supervised by radiologist): MIP and/or 3D reconstructed images were created by the technologist. Radiation optimization: All CT scans at this facility use at least one of these dose optimization techniques: automated exposure control; mA and/or kV adjustment per patient size (includes targeted exams where dose is matched to clinical indication); or iterative reconstruction. Contrast material: OMNIPAQUE 350; Contrast volume: 100 ml; Contrast route: INTRAVENOUS (IV); COMPARISON: CT CHEST PE CTA 09/27/2021 12:08 AM FINDINGS: Limitations: Evaluation of multiple segments of the lobar and segmental pulmonary arteries is limited secondary to motion artifact/volume averaging. VASCULATURE: Pulmonary arteries: No acute pulmonary emboli identified within the well visualized pulmonary arteries. Aorta: No aortic aneurysm. No aortic dissection. Celiac trunk and mesenteric arteries: No occlusion or significant stenosis. Renal arteries: No occlusion or significant stenosis. CHEST: Lungs: Mild bibasilar atelectasis and/or scarring. Pleural spaces: Unremarkable. No pneumothorax. No pleural effusion. Heart: Unremarkable. No cardiomegaly. No pericardial effusion. Diaphragm: Small-sized hiatal hernia. ABDOMEN AND PELVIS: Liver: No mass. Gallbladder and bile ducts: Unremarkable. No calcified stones. No ductal dilation. Pancreas: Unremarkable. No mass. No ductal dilation. Spleen: Unremarkable. No splenomegaly. Adrenal glands: Unremarkable. No mass. Kidneys and ureters: Unremarkable. No solid mass. No hydronephrosis. Stomach and bowel: Unremarkable. No obstruction. No mucosal thickening. Intraperitoneal space: Unremarkable. No free air. No significant fluid collection. Urinary bladder: Urinary bladder decompressed by Melendez catheter. Lymph nodes: Unremarkable. No enlarged lymph nodes. Bones/joints: Multilevel cervicothoracic spine degenerative disc space narrowing and osteophyte formation. Posterior dislocation of the right hip, likely chronic. Multilevel thoracolumbar spine degenerative disc space narrowing and osteophyte formation, with mild levoscoliosis of the lumbar spine. Left gluteal decubitus ulceration, with fluid and gas extending to the posterior left ischium, where there is evidence of bony erosion, compatible with osteomyelitis. Soft tissues: Gas and fluid collection within the deep subcutaneous tissues adjacent to the posterior ischium measures 5.1 x 2.1 cm, possibly abscess. IMPRESSION: 1. No acute pulmonary emboli identified within the well visualized pulmonary arteries. Please see limitations above. 2. Posterior dislocation of the right hip, likely chronic. 3. Left gluteal decubitus ulceration, with fluid and gas extending to the posterior left ischium, where there is evidence of bony erosion, compatible with osteomyelitis. Gas and fluid collection within the deep subcutaneous tissues adjacent to the posterior ischium measures 5.1 x 2.1 cm, possibly abscess. Dictated and Authenticated by: Francois Gurrola MD. Ordering:GLADYS Calvillo MD
[2023-06-17] MEDS: Normal Saline 1,000 ML 1000 ML IV (00:55)
[2023-06-17] MEDS: Norepinephrine in D5W 8 MG/250 ML BAG 18.75 MG IV (01:14)
[2023-06-17 01:43] LABS: Lactate 1.3 mmol/L (0.6-1.4)
[2023-06-17 03:11] LABS: MRSA PCR Negative (Negative)
[2023-06-17] MEDS: MEROPENEM 1 GM in Normal Saline 100 ML IVPB ×3 (08:50→23:53)
--- NOTE | 2023-06-17 08:52 | NUR.NOTE ---
Accessed pt chart: [facility] They were told that she was admitted and the admitting diagnosis. Nursing Note:
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
[2023-06-17] MEDS: Acetaminophen 325 MG TAB 650 MG PO ×3 (10:30→23:50)
--- NOTE | 2023-06-17 10:31 | TELEFU_ITS ---
Date of service: 06/17/23 Time of Service: 10:32 Nutrition Note NOTE: Received consult re: nutrition recommendations for wound care (chronic stage III ulcer on buttock) Pt is 42yo female known to me from prior admission and as a resident at [facility] next door under former employment there.Admitted for acute hypoxemic resp failure, abcess, sepsis. She is wheelchair bound with a long PMH including MS, DMII with neuropathy, hypothyroidism, hx of partial glossectomy, and opioid- induced chronic constipation. She is currently NPO status. Her weight history shows 7.7kg wt gain x 1 year (suspect some inaccuracies due to complications weighing chair-bound pt). Low albumin noted. Last A1C was 5.9% March 2023 and historically has been <6 most times. No diabetes meds on home list. no insulin order this admission. Current estimated energy needs: 2163kcals (30kcal per kg for wound healing), 108g protein (1.5g/kg for wound healing) and 2163mL fluid (1mL per required kcal) Nutrition recommendations: -25-OH Vitamin D lab, start cholecalciferol at 10,000IU/daily. -250mg vitamin C Daily -10,000IU vitamin A daily x 4 days -20mg Zinc Sulfate -start order for liquid protein concentrate TID When pt resumes PO intake - will offer Juvan wound supplement with arganine and glutamine with goal of BID at meals and instruct kitchen staff to offer higher kcal/protein menu options. Will follow pt for significant weight/lab changes and oral itake adequacy when PO intake resumes. Time Spent in Nutritional Counseling and Treatment: 0
[2023-06-17] MEDS: LINEZOLID 600 MG/300 ML BAG 300 MG IVPB ×2 (10:40→22:34)
--- NOTE | 2023-06-17 11:23 | PHACLINREV_ITS ---
Pharmacy Admission Review Admission Clinical Review Admission Pharmacy Review: Acute hypoxemic respiratory failure (Acute) Abscess (Acute) Sepsis (Acute) Septic shock (Acute) amoxicillin Allergy (Severe, Verified 06/16/23 22:16) Hives venom-honey bee Allergy (Severe, Verified 06/16/23 22:16) Anaphylaxsis azithromycin [From Zithromax] Allergy (Intermediate, Verified 06/16/23 22:16) hives ciprofloxacin Allergy (Intermediate, Verified 06/16/23 22:16) Hives cod liver oil Allergy (Intermediate, Verified 06/16/23 22:16) Gadolinium-Containing Contrast Medi Allergy (Intermediate, Verified 06/16/23 22:16) Hives latex Allergy (Intermediate, Verified 06/16/23 22:16) Skin Rash lactose Allergy (Mild, Verified 06/16/23 22:16) cortisone Allergy (Verified 06/16/23 22:16) interferon beta-1b [From Betaseron] Allergy (Verified 06/16/23 22:16) methylprednisolone [From Solu-Medrol] Allergy (Verified 06/16/23 22:16) red dye Allergy (Verified 06/16/23 22:16) metformin Adverse Reaction (Intermediate, Verified 06/16/23 22:16) RASH, DIARRHEA gabapentin Adverse Reaction (Mild, Verified 06/16/23 22:16) LE edema Hymenoptera allergen extract Allergy (Uncoded 06/16/23 22:16) Resuscitation Status Full Code Height 5 ft 2 in Weight 72.1 kg Comments Comments/Follow Ups: Currently on Levophed drip at 3.75mL/hr. Continue to monitor and watch for any med changes. Pharmacy Admission Review Renal Dosing Renal Dosing: BUN 10 mg/dL (7-18) 06/16/23 22:38 Creatinine 0.7 mg/dL (0.55-1.02) 06/16/23 22: Medications needing adjustments: Reviewed (CrCl 96.31 mL/min) Anticoagulation Anticoagulation: Hgb 11.0 g/dL (11.2-15.7) L 06/16/23 22:38 Hct 35.2 % (36.0-46.0) L 06/16/23 22:38 Plt Count 328 10^3/uL (130-400) 06/16/23: Creatinine 0.7 mg/dL (0.55-1.02) 06/16/23 22:38 DVT Prophylaxis: Intervened (None at the moment, does take Eliquis at home. Reached out to provider to confirm) Opiate Usage Evaluate Pain Scale/Pains Meds: Reviewed (PRN hydromorphone, Fentanyl patch) Scheduled Bowel Reg ordered if on Opiates?: Yes (Docusate, Senna, Miralax) Relevant Labs Relevant Labs: Sodium 134 mmol/L (136-145) L 06/16/23 22:38 Potassium 3.9 mmol/L (3.5-5.1) 06/16/23 22:38 Chloride 99 mmol/L (98-107) 06/16/23 22:38 Electrolytes, C-Reactive P, ESR: Reviewed (No new labs for today)) Cardiac Review Cardiac Review: Vital Signs - 8 hr 06/17/23 04:00 06/17/23 05:00 06/17/23 06:00 Temperature 37.8 C H Pulse 109 H 103 H 113 H Respiratory Rate 20 18 2 L Blood Pressure 103/70 126/79 129/76 Pulse Oximetry 98 92 94 06/17/23 08:39 06/17/23 08:39 06/17/23 10:00 Temperature 38.3 C H Pulse 118 H Respiratory Rate 24 Blood Pressure 109/66 Pulse Oximetry 87 L 87 L 90 L 06/17/23 10:01 06/17/23 10:30 06/17/23 10:36 Temperature 38.3 C H 37.9 C H Pulse 126 H 126 H Respiratory Rate 25 H 28 H Blood Pressure 105/69 118/78 Pulse Oximetry 90 L BP, HR, EF%: Reviewed (BP WNL, HR 126 (has been consistently elevated), Ox 90 with NC 2+) QTc Review QTc: Reviewed (447 06/16/23) IV to PO Switch IV Medications: Reviewed Home Meds Home Med List reviewed: Intervened Relevent Home Meds Not ordered & why?: Contacted [facility] and rehab to confirm patients medications. They confirmed patient is on a 25mcg fentanyl patch (applied on the 8th per patient) and hydromorphone 2mg q3h PRN for pain. Orders were adjusted. Additionally there is no current order for Apixaban, reached out to provider to confirm. Current Meds Current Medication Order Review: Reviewed Pharmacy Antibiotic Review Relevant Labs: Relevant Labs 06/16/23 22:38 Procalcitonin 0.9 Pharmacy Antibiotic Activity: C/S review and Reviewed, no change Comments: Current regimen is Linezolid 600mg q12h and meropenem 1g q8h, on day 1. Blood cultures pending, urine cultures positive for gram negative rods (susceptibility pending). Elevated temperature of 37.9 (been elevated since 0600 today). No new labs for today. Comments Comments/Follow Ups: Currently on Levophed drip at 3.75mL/hr. Continue to monitor and watch for any med changes.
[2023-06-17] MEDS: clonazePAM 0.5 MG TAB PO (11:24)
[2023-06-17] MEDS: Multivitamin TAB 1 TAB PO (11:24)
[2023-06-17] MEDS: Senna TAB 1 TAB PO (11:24)
[2023-06-17] MEDS: Polyethylene Glycol 3350 17 GM PACKET PO (11:24)
[2023-06-17] MEDS: DULoxetine 30 MG CAP 60 MG PO (11:24)
[2023-06-17] MEDS: Ondansetron O.D.T. 4 MG TABEF PO (11:31)
[2023-06-17] MEDS: Pregabalin 100 MG CAP PO ×2 (14:07→20:18)
[2023-06-17] MEDS: Baclofen 10 MG TAB 40 MG PO ×2 (14:07→20:17)
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
--- NOTE | 2023-06-17 17:13 | CHAPLAIN ---
[facility] She has spastic quadriplegia. We remembered meeting at her last admission. She said she is feeling better. she doesn't expect any family members to visit. She was pleasant and engaged in a conversation. I will continue to visit.
[2023-06-17 17:44] LABS: Lactate 0.8 mmol/L (0.6-1.4)
[2023-06-17 17:46] LABS: Abs Immature Grans 0.01 10^3/uL (0.0-0.06); Absolute Basophil Count 0.01 10^3/uL (0.0-0.2); Absolute Lymphocyte Count 0.37 10^3/uL (1.2-3.4); Absolute Monocyte Count 0.18 10^3/uL (0.1-0.8); Absolute Neutrophil Count 1.64 10^3/uL (1.2-6.7); Basophils % 0.5; HCT 28.4 % (36.0-46.0); HGB 8.9 g/dL (11.2-15.7); Immature Grans % 0.5; Lymphocytes % 16.7; MCH 28.2 pg (27.0-33.0); MCHC 31.3 % (32.0-36.0); MCV 90 fL (80-95); MPV 10.1 fL (8.0-11.0); Monocytes % 8.1; Neutrophils % 74.2; Platelet Count 244 10^3/uL (130-400); RBC 3.16 10^6/uL (3.93-5.22); RDW-SD 59.6 fL; WBC 2.21 10^3/uL (4.4-10.8)
[2023-06-17 18:01] LABS: ALT 12 U/L (14-59); AST 22 U/L (15-37); Albumin 2.1 g/dL (3.4-5.0); Alkaline Phosphatase 163 U/L (46-116); Anion Gap 5.6 mmol/L (3-11); BUN 10 mg/dL (7-18); Bilirubin, Total 0.3 mg/dL (0.2-1.0); CO2 28.4 mmol/L (21.0-32.0); CREATININE 0.6 mg/dL (0.55-1.02); Calcium 8.4 mg/dL (8.5-10.1); Chloride 106 mmol/L (98-107); Diff Comment RBC Morph Reviewed; Estimated GFR 114.15 (mL/min/1.73m2); Glucose 122 mg/dL (74-106); Potassium 3.4 mmol/L (3.5-5.1); RBC Morphology Normal; Sodium 140 mmol/L (136-145)
[2023-06-17] MEDS: Lactated Ringers 1,000 ML 125 ML IV (19:05)
[2023-06-17] MEDS: Docusate Sodium 100 MG CAP 200 MG PO (20:18)
[2023-06-17] MEDS: Calcium Carbonate 1.5 GM TAB 0.6 GM PO (20:19)
[2023-06-17] MEDS: Lactated Ringers 1,000 ML 1000 ML IV (20:24)
--- NOTE | 2023-06-17 20:35 | PGE_ITS ---
Date of Service Date of service: 06/17/23 Time of Service: 20:35 Assessment and Plan Assessment and plan (1) Critical airway: Status: Acute Assessment and plan: Pt has known critical airway with significant stenosis secondary to h/o neck dissection and radiation due to tongue cancer, and two previous tracheostomies. She also has some degree of tortocollis secondary to spasticity related to her MS. I have personally called multiple facilities with advanced levels of care to help manage this patient, who may likely have substantial perioperative airway management difficulties. Unfortunately, [place] [facility] [place] [facility], [facility], or [facility]. Will attempt to reach other facilities to help safely care for this patient. (2) Abscess: Status: Acute Assessment and plan: Pt appears to have deep left ischial abscess with associated osteomyelitis, and needs operative exploration and debridement. However, this is complicated by how to manage her critical airway. On linezolid and meropenem local wound care (3) Septic shock: Status: Acute Assessment and plan: BP maintained on light doses of levophed Pt is mentating well and understands the clinical picture IV fluid resuscitation NPO (4) History of tongue cancer: Status: Acute (5) S/P partial glossectomy: Status: Acute Subjective Subjective Interval history since last seen: Pt is feeling slightly better than presentation, and is at her baseline level of discomfort without significant focal pain. Exam Const General: cooperative and comfortable Orientation: alert, awake and oriented x3 Cardio Pulses: radial pulses present and dorsalis pedis present Skin Other: warm Neuro Cognition: normal cognition Speech: abnormal speech (h/o partial glossectomy) Psych Thought Process: normal Thought Content: normal Insight: insight good Judgment: judgment good Objective Last Vital Signs Temp 99.9 F H 06/17/23 16:41 Pulse 101 H 06/17/23 19:46 Resp 15 06/17/23 19:46 BP 125/59 L 06/17/23 19:46 Pulse Ox 96 06/17/23 19:46 Laboratory Results - last 24 hr 06/16/23 06/16/23 06/16/23 22:29 22:38 22:48 WBC 5.91 RBC 3.98 Hgb 11.0 L Hct 35.2 L MCV 88 MCH 27.6 MCHC 31.3 L RDW 17.9 H Plt Count 328 MPV 10.2 Immature Gran % 0.5 Neutrophils % 85.3 Lymphocytes % 8.0 Monocytes % 5.1 Eosinophils % 0.8 Basophils % 0.3 Nucleated RBC % 0.0 Absolute Neutrophils 5.04 Absolute Lymphocytes 0.47 L Absolute Monocytes 0.30 Absolute Eosinophils 0.05 Absolute Basophils 0.02 RBC Morphology VBG pH 7.47 H VBG pCO2 40 L VBG pO2 95 VBG HCO3 30 H VBG Total CO2 27 VBG O2 Saturation 99 VBG Base Excess 6 H VBG Lactate 0.9 Sodium 134 L Potassium 3.9 Chloride 99 Carbon Dioxide 28.9 Anion Gap 6.1 BUN 10 Creatinine 0.7 Est GFR (CKD-EPI 2020) 109.98 Glucose 183 H Calcium 9.2 Total Bilirubin 0.4 AST 19 ALT 16 Alkaline Phosphatase 190 H Total Protein 8.5 H Albumin 2.6 L Procalcitonin 0.9 TSH 2.02 Beta HCG, Quant < 1 L Urine Color Urine Clarity Urine pH Ur Specific [place] Urine Protein Urine Ketones Urine Blood Urine Nitrite Urine Bilirubin Urine Urobilinogen Ur Leukocyte Esterase Urine RBC Urine WBC Ur Epithelial Cells Urine Crystals Urine Bacteria Urine Casts Urine Mucus Urine Other Ur Culture Indicated? Urine Glucose COVID-19 Source Nasopharynx SARS-CoV-2 (PCR) Negative MRSA (TEM-PCR) 06/16/23 06/17/23 06/17/23 22:52 01:40 01:55 WBC RBC Hgb Hct MCV MCH MCHC RDW Plt Count MPV Immature Gran % Neutrophils % Lymphocytes % Monocytes % Eosinophils % Basophils % Nucleated RBC % Absolute Neutrophils Absolute Lymphocytes Absolute Monocytes Absolute Eosinophils Absolute Basophils RBC Morphology VBG pH VBG pCO2 VBG pO2 VBG HCO3 VBG Total CO2 VBG O2 Saturation VBG Base Excess VBG Lactate 1.3 Sodium Potassium Chloride Carbon Dioxide Anion Gap BUN Creatinine Est GFR (CKD-EPI 2020) Glucose Calcium Total Bilirubin AST ALT Alkaline Phosphatase Total Protein Albumin Procalcitonin TSH Beta HCG, Quant Urine Color Yellow Urine Clarity Cloudy Urine pH 8.5 H Ur Specific [place] 1.020 Urine Protein 100 H Urine Ketones Negative Urine Blood Trace-intact H Urine Nitrite Negative Urine Bilirubin Negative Urine Urobilinogen 1.0 H Ur Leukocyte Esterase Small H Urine RBC 0-2 Urine WBC 5-10 Ur Epithelial Cells Rare Urine Crystals Many Amorphous Urine Bacteria Few Urine Casts Negative Urine Mucus Negative Urine Other Rare Transitional Ur Culture Indicated? Yes Urine Glucose Negative COVID-19 Source SARS-CoV-2 (PCR) MRSA (TEM-PCR) Negative 06/17/23 17:32 WBC 2.21 L RBC 3.16 L Hgb 8.9 L D Hct 28.4 L MCV 90 MCH 28.2 MCHC 31.3 L RDW 18.0 H Plt Count 244 MPV 10.1 Immature Gran % 0.5 Neutrophils % 74.2 Lymphocytes % 16.7 Monocytes % 8.1 Eosinophils % 0.0 Basophils % 0.5 Nucleated RBC % 0.0 Absolute Neutrophils 1.64 Absolute Lymphocytes 0.37 L Absolute Monocytes 0.18 Absolute Eosinophils 0.00 Absolute Basophils 0.01 RBC Morphology Normal VBG pH VBG pCO2 VBG pO2 VBG HCO3 VBG Total CO2 VBG O2 Saturation VBG Base Excess VBG Lactate 0.8 Sodium 140 Potassium 3.4 L Chloride 106 Carbon Dioxide 28.4 Anion Gap 5.6 BUN 10 Creatinine 0.6 Est GFR (CKD-EPI 2020) 114.15 Glucose 122 H Calcium 8.4 L Total Bilirubin 0.3 AST 22 ALT 12 L Alkaline Phosphatase 163 H Total Protein 7.0 Albumin 2.1 L Procalcitonin TSH Beta HCG, Quant Urine Color Urine Clarity Urine pH Ur Specific [place] Urine Protein Urine Ketones Urine Blood Urine Nitrite Urine Bilirubin Urine Urobilinogen Ur Leukocyte Esterase Urine RBC Urine WBC Ur Epithelial Cells Urine Crystals Urine Bacteria Urine Casts Urine Mucus Urine Other Ur Culture Indicated? Urine Glucose COVID-19 Source SARS-CoV-2 (PCR) MRSA (TEM-PCR) Objective Narrative Objective Narrative: She has been requiring light doses of levophed throughout the day. Time Spent with Patient Time Spent with Patient: >50 minutes Time was spent: preparing to see the patient(eg.review tests), obtaining and/or reviewing separately otained hiistory, ordering medications,tests, procedures, referring, communicating with other health customer care specialist, indepentently interpreting results, counseling the patient and care coordination
[2023-06-17] MEDS: Melatonin 3 MG TAB 9 MG PO (21:04)
[2023-06-18] VITALS (104 sets, daily range): BP systolic 92–156; BP diastolic 54–94; PULSE 77–117; RESP 6–37; TEMP 36.5–38; O2SAT 78–100
--- NOTE | 2023-06-18 | DI.CT_ITS ---
Exam(s) CT PELVIC W EXAM: CT PELVIC W CLINICAL HISTORY: eval for gluteal abscess; poss OR. TECHNIQUE: Imaging Protocol: Axial computed tomography images with coronal and sagittal reformatted images were created and reviewed CONTRAST MATERIAL: Intravenous: Omnipaque 100cc Oral: None COMPARISON: CT CT CHEST PE ABD PELVIS W from 06/16/2023 FINDINGS: PELVIS: SOFT TISSUES: There is a left buttock decubitus ulcer and there is a subjacent abscess extending medi ally towards the ischial rectal fat, this containing gas bubbles and measuring approximately 8 cm in length by 1.7 cm by 5 cm. There is destruction of the subjacent left ischial tuberosity consistent w ith osteomyelitis. This destructive bone process also extends into the adjacent inferior pubic ramus . OSSEOUS:As above. Also noted is chronic deformity of the right hip joint. ANTERIOR ABDOMINAL WALL/GI:No evidence of bowel obstruction. No evidence of appendicitis.Abundant fe vickie material in the sigmoid. No diverticulitis. LYMPH NODES: There is no intrapelvic nor inguinal adenopathy. REPRODUCTIVE: Uterus is atrophic or surgically absent. There are no abnormal adnexal masses. URINARY BLADDER: There is a Melendez catheter in the bladder. The bladder is decompressed. IMPRESSION: 1. Left buttock the cubitus ulcer with subjacent abscess as described above and with evidence of dest ructive osteomyelitis of the left ischial tuberosity and adjacent aspect of the inferior left pubic r amus. 2. Other findings as above. RADIATION DOSE DELIVERED: 519.6mGy.cm Total DLP DATA REPOSITORY: All CT scans at this facility are submitted to the National Radiology Data Registry (NRDR) Dose Index Registry (DIR) with the [employer] (ACR). RADIATION OPTIMIZATION: All CT scans at this facility use at least one of these dose optimization te chniques: automated exposure control; mA and/or kV adjustment per patient size (includes targeted exa ms where dose is matched to clinical indication); or iterative reconstruction.
[2023-06-18] MEDS: Ondansetron O.D.T. 4 MG TABEF PO (00:35)
[2023-06-18] MEDS: Levothyroxine 25 MCG TAB PO (06:00)
[2023-06-18 08:51] LABS: Anion Gap 5.2 mmol/L (3-11); BUN 7 mg/dL (7-18); C-Reactive Protein 8.18 mg/dL (0.0-0.3); CO2 28.8 mmol/L (21.0-32.0); CREATININE 0.5 mg/dL (0.55-1.02); Calcium 8.2 mg/dL (8.5-10.1); Chloride 106 mmol/L (98-107); Estimated GFR 119.27 (mL/min/1.73m2); Glucose 123 mg/dL (74-106); Magnesium 1.8 mg/dL (1.8-2.4); Potassium 3.6 mmol/L (3.5-5.1); Sodium 140 mmol/L (136-145)
--- NOTE | 2023-06-18 09:04 | PGE_ITS ---
Date of Service Date of service: 06/18/23 Time of Service: 09:05 Assessment and Plan Assessment and plan (1) Abscess: Status: Acute Assessment and plan: Admission CT (06/16/23) was reviewed with Dr. Silva, and collection medial to skin wound opening, adjacent to bone was noted. However, on digital exam of the wound today, I did not encounter an area that felt like any collection. --repeat CT pelvis without packing in place --will decide if need to proceed to operating room (2) Cough: Status: Acute Assessment and plan: Pt c/o productive cough of green sputum x 1.5 days CXR today does not show a collection of infiltrate --Duoneb --Acapella --chest PT --sputum culture (3) Septic shock: Status: Acute Assessment and plan: Septic shock resolved Off of pressors overnight, maintaining a MAP>70 No longer tachycardic, regular rate No fevers overnight Pt with new cough, CXR pending (4) Critical airway: Status: Acute Assessment and plan: Based on CT results, will determine if need to proceed to OR. 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 Denies dizziness, chest pain, shortness of breath, and abdominal pain. However, she feels gassy, and has had a productive cough with green sputum overnight. She states that the cough started on the day of her presentation to the ED. Otherwise, pain is controlled. Exam Const General: cooperative, no acute distress and not lethargic Nutritional Appearance: average body habitus Orientation: alert, awake and oriented x3 HENMT Mouth: mucous membranes dry Eyes Other: no scleral icterus Neck Other: well-healed right neck incision Resp Effort & Inspection: normal respiratory effort and no pursed lip breathing Auscultation: rhonchi upper bilaterally Cardio Rate: regular rate Rhythm: regular rhythm Heart Sounds: S1 normal and S2 normal Pulses: radial pulses present and dorsalis pedis present GI Inspection: no abdominal wall ecchymosis, no edema and distended Palpation: soft, no guarding and nontender Percussion: tympanic to percussion Other: in-dwelling Melendez with clear yellow urine Back/Spine/Pelvis Other: ~1.5x1.5cm clean wound over left ischium, noticeably smaller than yesterday; wound was digitally probed with sterile glove; bony prominences palpated, but no areas of fluctuance or fluid encountered; no drainage, no foul smell; muscle encountered felt intact, not devitalized Neuro General: patient alert, patient awake and patient oriented x3 Cognition: normal cognition Speech: abnormal speech (h/o partial glossectomy) garbled Extrem Other: severe contracture of RLE all limbs warm, and well-perfused Psych Thought Process: normal Thought Content: normal Insight: insight good Judgment: judgment good Objective Last Vital Signs Temp 98.2 F 06/18/23 07:30 Pulse 101 H 06/18/23 02:01 Resp 35 H 06/18/23 02:01 BP 116/67 06/18/23 02:01 Pulse Ox 96 06/18/23 02:01 Laboratory Results - last 24 hr 06/17/23 17:32 WBC 2.21 L RBC 3.16 L Hgb 8.9 L D Hct 28.4 L MCV 90 MCH 28.2 MCHC 31.3 L RDW 18.0 H Plt Count 244 MPV 10.1 Immature Gran % 0.5 Neutrophils % 74.2 Lymphocytes % 16.7 Monocytes % 8.1 Eosinophils % 0.0 Basophils % 0.5 Nucleated RBC % 0.0 Absolute Neutrophils 1.64 Absolute Lymphocytes 0.37 L Absolute Monocytes 0.18 Absolute Eosinophils 0.00 Absolute Basophils 0.01 RBC Morphology Normal VBG Lactate 0.8 Sodium 140 Potassium 3.4 L Chloride 106 Carbon Dioxide 28.4 Anion Gap 5.6 BUN 10 Creatinine 0.6 Est GFR (CKD-EPI 2020) 114.15 Glucose 122 H Calcium 8.4 L Total Bilirubin 0.3 AST 22 ALT 12 L Alkaline Phosphatase 163 H Total Protein 7.0 Albumin 2.1 L Time Spent with Patient Time Spent with Patient: >50 minutes Time was spent: preparing to see the patient(eg.review tests), obtaining and/or reviewing separately otained hiistory, ordering medications,tests, procedures, referring, communicating with other health critical care educator, indepentently interpreting results and counseling the patient
--- NOTE | 2023-06-18 09:16 | DI.RAD_ITS ---
Exam(s) XR PORTABLE CHEST AP EXAM: XR PORTABLE CHEST AP CLINICAL HISTORY: increased secretions. TECHNIQUE: 2D digital imaging was performed. COMPARISON: CR,XR XR PORTABLE CHEST AP from 06/16/2023 FINDINGS: Single AP portable view. Chest leads in place. Heart size is upper normal. The mediastinum is not widened. Lungs are clear. No infiltrates nor obvious pleural effusions. Surgical clip seen in the right-side of the neck which may be from prior endarterectomy. IMPRESSION: No acute pulmonary findings on this single AP portable view of the chest. DATA REPOSITORY: RADIATION DOSE DELIVERED:
--- NOTE | 2023-06-18 09:18 | PDOC.CMPRO ---
Date of service: 06/18/23 Time of Service: 09:19 Care Management Progress Note Progress Note Text Progress Note Text: CM met with Ethel to update and complete new Advance Directives, the biggest change being Ethel's willingness to now accept blood products. AD provided to [facility] for processing. Per report, anticipate likely transfer today, if bed can be secured. CM continues to follow.
[2023-06-18] MEDS: Docusate Sodium 100 MG CAP 200 MG PO ×2 (09:35→20:31)
[2023-06-18] MEDS: Baclofen 10 MG TAB 40 MG PO ×3 (09:38→20:31)
[2023-06-18] MEDS: DULoxetine 30 MG CAP 60 MG PO (09:38)
[2023-06-18] MEDS: Pregabalin 100 MG CAP PO ×3 (09:38→20:33)
[2023-06-18] MEDS: Senna TAB 1 TAB PO (09:38)
[2023-06-18] MEDS: Multivitamin TAB 1 TAB PO (09:40)
[2023-06-18] MEDS: fentaNYL 25 MCG PATCH TD (09:40)
[2023-06-18] MEDS: MEROPENEM 1 GM in Normal Saline 100 ML IVPB ×2 (09:42→16:31)
[2023-06-18] MEDS: Polyethylene Glycol 3350 17 GM PACKET PO (09:42)
[2023-06-18] MEDS: Lactated Ringers 1,000 ML 150 ML IV (09:46)
[2023-06-18] MEDS: HYDROmorphone 2 MG TAB PO ×2 (10:08→20:33)
[2023-06-18] MEDS: Calcium Carbonate 1.5 GM TAB 0.6 GM PO ×2 (10:18→20:32)
[2023-06-18 10:22] LABS: Lactate 0.6 mmol/L (0.6-1.4)
[2023-06-18 10:26] LABS: HCT 26.4 % (36.0-46.0); MCH 27.5 pg (27.0-33.0); MCV 91 fL (80-95); RBC 2.91 10^6/uL (3.93-5.22); WBC 1.94 10^3/uL (4.4-10.8)
[2023-06-18 10:27] LABS: Abs Immature Grans 0.01 10^3/uL (0.0-0.06); Absolute Basophil Count 0.01 10^3/uL (0.0-0.2); Absolute Eosinophil Count 0.01 10^3/uL (0.0-0.7); Absolute Lymphocyte Count 0.39 10^3/uL (1.2-3.4); Absolute Monocyte Count 0.16 10^3/uL (0.1-0.8); Absolute Neutrophil Count 1.36 10^3/uL (1.2-6.7); Basophils % 0.5; Diff Comment Diff Reviewed; Eosinophils % 0.5; Immature Grans % 0.5; Lymphocytes % 20.1; MCHC 30.3 % (32.0-36.0); MPV 10.2 fL (8.0-11.0); Monocytes % 8.2; Neutrophils % 70.2; Platelet Count 227 10^3/uL (130-400); RBC Morphology Normal; RDW 17.8 % (11.7-14.6); RDW-SD 59.5 fL
[2023-06-18] MEDS: LINEZOLID 600 MG/300 ML BAG 300 MG IVPB (10:41)
[2023-06-18] MEDS: Normal Saline - Diluent 50 ML VIAL IJ (13:43)
[2023-06-18] MEDS: Omnipaque 350 MG/ML 100 ML BTL IJ (13:43)
[2023-06-18] MEDS: Albuterol/Ipratropium 3 ML UPD VIAL UPD ×3 (13:53→19:59)
--- NOTE | 2023-06-18 15:18 | CHAPLAIN ---
Ethel was resting in bed when I visited. She said she'd been coughing a lot during the night, so was tired from that. Ethel lives at [facility] and will return there. I will continue to visit.
[2023-06-18] MEDS: Acetaminophen 325 MG TAB 650 MG PO (15:36)
--- NOTE | 2023-06-18 19:20 | PGE_ITS ---
Date of Service Date of service: 06/18/23 Time of Service: 19:20 Assessment and Plan Assessment and plan (1) Osteomyelitis: Status: Acute Assessment and plan: Repeat imaging today, after decubitus wound was probed, confirms deep pelvic abscess with bony destruction, consistent with osteomyelitis. Attempts made to contact other facilities to transfer patient for more aggress susie debridement, with orthopedic, and extensive wound care capabilities. Our facility does not have orthopedic call coverage until 06/22 --will maintain on broad-spectum antibiotics --will f/u with outside facilities in AM for transfer vs. [id number] IR drainage (2) Cough: Status: Acute Assessment and plan: --Duoneb --Acapella --chest PT --sputum culture--pt has not been able to produce deep enough cough for a sample (3) Abscess: Status: Acute Assessment and plan: Decubitus wound probed earlier, and abscess found not to be in direct communication with this wound. Abscess appears more deeply involved with the bony pelvis, with osteomyelitis --maintain broad-specturm antibiotics (4) Critical airway: Status: Acute Assessment and plan: This remains of utmost concern given pt's history of significant airway stenosis (5) Difficult airway for intubation: Status: Suspected (6) Muscle spasticity: Status: Acute Subjective Subjective Interval history since last seen: Pt feels okay. Has remained stable throughrout the day. Objective Last Vital Signs Temp 97.7 F 06/18/23 16:01 Pulse 90 06/18/23 19:01 Resp 9 L 06/18/23 19:01 BP 115/69 06/18/23 19:01 Pulse Ox 95 06/18/23 19:01 Laboratory Results - last 24 hr 06/18/23 06:06 WBC 1.94 L* RBC 2.91 L Hgb 8.0 L Hct 26.4 L MCV 91 MCH 27.5 MCHC 30.3 L RDW 17.8 H Plt Count 227 MPV 10.2 Immature Gran % 0.5 Neutrophils % 70.2 Lymphocytes % 20.1 Monocytes % 8.2 Eosinophils % 0.5 Basophils % 0.5 Nucleated RBC % 0.0 Absolute Neutrophils 1.36 Absolute Lymphocytes 0.39 L Absolute Monocytes 0.16 Absolute Eosinophils 0.01 Absolute Basophils 0.01 RBC Morphology Normal VBG Lactate 0.6 Sodium 140 Potassium 3.6 Chloride 106 Carbon Dioxide 28.8 Anion Gap 5.2 BUN 7 Creatinine 0.5 L Est GFR (CKD-EPI 2020) 119.27 Glucose 123 H Calcium 8.2 L Magnesium 1.8 C-Reactive Protein 8.18 H Objective Narrative Objective Narrative: Pelvis CT (06/18/23): INDINGS: PELVIS: SOFT TISSUES: There is a left buttock decubitus ulcer and there is a subjacent abscess extending medially towards the ischial rectal fat, this containing gas bubbles and measuring approximately 8 cm in length by 1.7 cm by 5 cm. There is destruction of the subjacent left ischial tuberosity consistent with osteomyelitis. This destructive bone process also extends into the adjacent inferior pubic ramus. OSSEOUS:As above. Also noted is chronic deformity of the right hip joint. ANTERIOR ABDOMINAL WALL/GI:No evidence of bowel obstruction. No evidence of appendicitis.Abundant fecal material in the sigmoid. No diverticulitis. LYMPH NODES: There is no intrapelvic nor inguinal adenopathy. REPRODUCTIVE: Uterus is atrophic or surgically absent. There are no abnormal adnexal masses. URINARY BLADDER: There is a Melendez catheter in the bladder. The bladder is decompressed. IMPRESSION: 1. Left buttock the cubitus ulcer with subjacent abscess as described above and with evidence of destructive osteomyelitis of the left ischial tuberosity and adjacent aspect of the inferior left pubic ramus. 2. Other findings as above. Time Spent with Patient Time Spent with Patient: >50 minutes Time was spent: preparing to see the patient(eg.review tests), obtaining and/or reviewing separately otained hiistory, ordering medications,tests, procedures, referring, communicating with other health rehab care assistant, indepentently interpreting results and counseling the patient
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
[2023-06-18] MEDS: Lactated Ringers 1,000 ML 125 ML IV (20:04)
[2023-06-18] MEDS: guaiFENesin 600 MG TABCR PO (20:31)
[2023-06-18 20:41] LABS: Abs Immature Grans 0.01 10^3/uL (0.0-0.06); Absolute Eosinophil Count 0.02 10^3/uL (0.0-0.7); HCT 26.8 % (36.0-46.0); HGB 8.3 g/dL (11.2-15.7); MCH 28.2 pg (27.0-33.0); MCV 91 fL (80-95); MPV 10.5 fL (8.0-11.0); Platelet Count 204 10^3/uL (130-400); RBC 2.94 10^6/uL (3.93-5.22); RDW 17.8 % (11.7-14.6); RDW-SD 59.7 fL; WBC 2.21 10^3/uL (4.4-10.8)
[2023-06-18 20:53] LABS: Absolute Basophil Count 0.02 10^3/uL (0.0-0.2); Absolute Lymphocyte Count 0.35 10^3/uL (1.2-3.4); Absolute Monocyte Count 0.24 10^3/uL (0.1-0.8); Absolute Neutrophil Count 1.57 10^3/uL (1.2-6.7); Atypical Lymphocytes % 1; Bands % 1
[2023-06-18 20:54] LABS: Diff Comment Diff Reviewed; Hypochromasia 2+
[2023-06-18 20:59] LABS: Hemoglobin A1C 5.7 % (<5.7)
--- NOTE | 2023-06-18 21:48 | DI.RAD_ITS ---
Exam(s) XR LINE PLACEMENT PICC/CVA EXAM: XR LINE PLACEMENT PICC/CVA CLINICAL HISTORY: line placement TECHNIQUE: 2D digital imaging was performed of the chest. Three images were obtained. AP views wer e obtained. COMPARISON: CR XR PORTABLE CHEST AP from 06/18/2023 FINDINGS: MEDIASTINUM: Normal. HEART: Normal. PULMONARY VASCULATURE: Normal. LUNGS: No focal consolidating infiltrates are seen. PLEURAL SPACE: No pleural effusion or pneumothorax. BONE:Within normal limits for the patient's age. OTHER FINDINGS:3 subsequent images were obtained during placement of a left PICC line. The initial i mage timed at 2203 hours, shows the catheter was advanced too far and needed to be retracted. The im age timed at 22:09 hours, shows the catheter tip directed cephalad in need to be repositioned. The e xamination at 2212 hours, shows the catheter tip just beyond the cavoatrial junction. There is eleva tion of the right hemidiaphragm. IMPRESSION: Final examination at 2212 hours, shows the catheter tip just beyond the cavoatrial junction. It may be retracted 2-3 cm. DATA REPOSITORY: RADIATION DOSE DELIVERED:
--- NOTE | 2023-06-18 22:50 | DI.VRAD_ITS ---
Addendum created by Jose Walden MD on 06/18/2023 10:53:40 PM EST: Findings discussed with the PICC nurse Jimy Waterman. Current study actually includes multiple chest x-rays obtained during the placement procedure. The final image does show the PICC line to have been pulled back. The tip is in the mid to upper right atrium approximately 3 cm beyond the cavoatrial junction. This position is acceptable. Optimally, retracting the catheter approximately 3 cm would provide a better position. Initial report created on 06/18/2023 10:49:40 PM EST: PROCEDURE INFORMATION: Exam: XR Chest Exam date and time: 06/18/2023 10:03 PM Age: 42 years old Clinical indication: Device placement; Picc TECHNIQUE: Imaging protocol: Radiologic exam of the chest. Views: 1 view. COMPARISON: CR XR PORTABLE CHEST AP 06/18/2023 9:09 AM FINDINGS: Tubes, catheters and devices: A left upper extremity PICC line is noted. The PICC line passes across the right atrium and the tip appears to be in the inferior vena cava. This should be retracted approximately 13 cm for better positioning near the superior cavoatrial junction. Lungs: No acute lung infiltrates. Pleural spaces: Unremarkable. No pleural effusion. No pneumothorax. Heart/Mediastinum: Normal heart size. Bones/joints: Unremarkable. IMPRESSION: Left upper extremity PICC line traverses the right atrium and enters the inferior vena cava. Recommend retracting line [address] tip near superior cavoatrial junction. Dictated and Authenticated by: Jose Walden MD. Ordering:IMELDA Connor MD
--- NOTE | 2023-06-18 23:05 | DI.RAD_ITS ---
Exam(s) XR LINE PLACEMENT PICC/CVA EXAM: XR LINE PLACEMENT PICC/CVA CLINICAL HISTORY: line placement TECHNIQUE: 2D digital imaging was performed of the chest. One image was obtained. An AP view was ob tained. COMPARISON: CR XR PORTABLE CHEST AP from 06/18/2023 FINDINGS: MEDIASTINUM: Normal. HEART: Normal. PULMONARY VASCULATURE: Normal. LUNGS: No focal consolidating infiltrates are seen. PLEURAL SPACE: No pleural effusion or pneumothorax. BONE:Within normal limits for the patient's age. OTHER FINDINGS:There is elevation of the right hemidiaphragm. There has been interval placement of a left PICC line. The tip is in good position in the superior vena cava. IMPRESSION: 1. No acute pulmonary findings. 2. The tip of the left PICC line is in good position in the superior vena cava. DATA REPOSITORY: RADIATION DOSE DELIVERED:
--- NOTE | 2023-06-18 23:25 | DI.VRAD_ITS ---
Addendum created by Jose Walden MD on 06/18/2023 11:33:31 PM EST: Discussion regarding PICC line which is adequately positioned. Initial report created on 06/18/2023 11:25:21 PM EST: PROCEDURE INFORMATION: Exam: XR Chest Exam date and time: 06/18/2023 11:16 PM Age: 42 years old Clinical indication: Device placement; Picc TECHNIQUE: Imaging protocol: Radiologic exam of the chest. Views: 1 view. COMPARISON: CR XR LINE PLACEMENT PICC/CVA 06/18/2023 10:03 PM FINDINGS: Tubes, catheters and devices: PICC line is noted entering from the left upper extremity. The tip of the PICC line is in the superior vena cava approximately 1.5 cm above the cavoatrial junction. This is well-positioned to begin use. Lungs: Clear lungs. Pleural spaces: Unremarkable. No pleural effusion. No pneumothorax. Heart/Mediastinum: Normal heart size. Bones/joints: Degenerative thoracic spine. IMPRESSION: Left upper extremity PICC line is well positioned with the distal tip approximately 1.5 cm above the cavoatrial junction. Dictated and Authenticated by: Jose Walden MD. Ordering:IMELDA Connor MD
[2023-06-18] MEDS: LINEZOLID 600 MG/300 ML BAG 150 MG IVPB (23:41)
[2023-06-19] VITALS (74 sets, daily range): BP systolic 120–152; BP diastolic 64–80; PULSE 85–129; RESP 6–40; TEMP 36.6–37.7; O2SAT 4–100
[2023-06-19] MEDS: Albuterol/Ipratropium 3 ML UPD VIAL UPD ×7 (00:12→23:54)
[2023-06-19] MEDS: Melatonin 3 MG TAB 9 MG PO ×2 (00:30→20:31)
[2023-06-19] MEDS: clonazePAM 0.5 MG TAB PO ×2 (00:30→20:32)
[2023-06-19] MEDS: MEROPENEM 1 GM in Normal Saline 100 ML IVPB ×4 (00:45→23:54)
[2023-06-19] MEDS: HYDROmorphone 2 MG TAB PO ×2 (01:54→02:51)
[2023-06-19] MEDS: Levothyroxine 25 MCG TAB PO (05:42)
[2023-06-19] MEDS: Lactated Ringers 1,000 ML 125 ML IV ×3 (05:43→22:26)
[2023-06-19 07:24] LABS: Abs Immature Grans 0.05 10^3/uL (0.0-0.06); Absolute Eosinophil Count 0.01 10^3/uL (0.0-0.7); Absolute Lymphocyte Count 0.24 10^3/uL (1.2-3.4); Absolute Monocyte Count 0.15 10^3/uL (0.1-0.8); Absolute Neutrophil Count 1.64 10^3/uL (1.2-6.7); Eosinophils % 0.5; HCT 28.6 % (36.0-46.0); HGB 8.6 g/dL (11.2-15.7); Immature Grans % 2.4; Lymphocytes % 11.5; MCH 27.1 pg (27.0-33.0); MCHC 30.1 % (32.0-36.0); MCV 90 fL (80-95); MPV 10.7 fL (8.0-11.0); Monocytes % 7.2; Neutrophils % 78.4; Platelet Count 223 10^3/uL (130-400); RBC 3.17 10^6/uL (3.93-5.22); RDW 17.6 % (11.7-14.6); RDW-SD 58.6 fL; Reticulocyte 1.8 % (0.5-2.4); WBC 2.09 10^3/uL (4.4-10.8)
[2023-06-19 07:31] LABS: ESR 45 mm/hr (0-20)
[2023-06-19 07:34] LABS: Anion Gap 8.1 mmol/L (3-11); BUN 4 mg/dL (7-18); CO2 29.9 mmol/L (21.0-32.0); CREATININE 0.6 mg/dL (0.55-1.02); Calcium 8.1 mg/dL (8.5-10.1); Chloride 102 mmol/L (98-107); Estimated GFR 114.15 (mL/min/1.73m2); Glucose 105 mg/dL (74-106); LDH 176 U/L (81-234); Potassium 3.4 mmol/L (3.5-5.1); Sodium 140 mmol/L (136-145)
--- NOTE | 2023-06-19 07:49 | PGE_ITS ---
Date of Service Date of service: 06/19/23 Time of Service: 07:49 Assessment and Plan Assessment and plan (1) Osteomyelitis: Status: Acute Assessment and plan: CT pelvis yesterday confirmed abscess with bony destruction, consistent with osteomyelitis Attempts made to contact other facilities to transfer patient for aggressive debridement, possibly with orthopedics, and extensive wound care capabilities. Our facility does not have orthopedic call coverage until 06/22 --will maintain on broad-spectum antibiotics --will f/u with outside facilities in AM for transfer vs. [id number] IR drainage --[place] [facility] Qualifiers: Osteomyelitis type: chronic, with draining sinus Osteomyelitis location: other site Qualified Code(s): M86.48 - Chronic osteomyelitis with draining sinus, other site (2) Cough: Status: Acute Assessment and plan: --Duoneb --Acapella --chest PT --sputum culture--pt has not been able to produce deep enough cough for a sample --suctioning as needed (3) Abscess: Status: Acute Assessment and plan: Decubitus wound probed earlier, and abscess found not to be in direct communication with this wound. Abscess appears more deeply involved with the bony pelvis, with osteomyelitis --maintain broad-specturm antibiotics (4) Critical airway: Status: Acute Assessment and plan: This remains of utmost concern given pt's history of significant airway stenosis --will continue to try transfer to tertiary care center for advanced airway management (5) Difficult airway for intubation: Status: Suspected (6) Muscle spasticity: Status: Chronic Assessment and plan: --supportive padding --Reposition patient every 2 hours Subjective Subjective Interval history since last seen: Pt with increased sputum last night requiring deep suctioning due to inability to clear secretions. Nursing notes that RR was up to 30s, and HR into 100s during these periods. Improved at this time. Pt states she feels more comfortable now. LUE PICC was placed last night. 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3 L 31.0 L 30.1 L RDW 17.8 H 17.8 H 17.6 H Plt Count 227 204 223 MPV 10.2 10.5 10.7 Reticulocyte % (Auto) 1.8 Immature Gran % 0.5 0.0 2.4 Neutrophils % 70.2 70.0 78.4 Band Neutrophils % 1 Lymphocytes % 20.1 15.0 11.5 Atypical Lymphs % 1 Monocytes % 8.2 11.0 7.2 Eosinophils % 0.5 1.0 0.5 Basophils % 0.5 1.0 0.0 Nucleated RBC % 0.0 0.0 0.0 Absolute Neutrophils 1.36 1.57 1.64 Absolute Lymphocytes 0.39 L 0.35 L 0.24 L Absolute Monocytes 0.16 0.24 0.15 Absolute Eosinophils 0.01 0.02 0.01 Absolute Basophils 0.01 0.02 0.00 RBC Morphology Normal See Below Hypochromasia 2+ VBG Lactate 0.6 Sodium 140 140 Potassium 3.6 3.4 L Chloride 106 102 Carbon Dioxide 28.8 29.9 Anion Gap 5.2 8.1 BUN 7 4 L Creatinine 0.5 L 0.6 Est GFR (CKD-EPI 2020) 119.27 114.15 Glucose 123 H 105 Hemoglobin A1c 5.7 Calcium 8.2 L 8.1 L Magnesium 1.8 Lactate Dehydrogenase 176 C-Reactive Protein 8.18 H 6.90 H Time Spent with Patient Time Spent with Patient: 35-49 minutes Time was spent: preparing to see the patient(eg.review tests), obtaining and/or reviewing separately otained hiistory, ordering medications,tests, procedures, referring, communicating with other health care connector, indepentently in terpreting results and counseling the patient
[2023-06-19 08:03] LABS: Iron 9 ug/dL (50-170); Total Iron Binding Capacity 123 ug/dL (250-450); Transferrin Sat 7 % (15-50)
[2023-06-19 08:11] LABS: Ferritin 838 ng/mL (8-252)
[2023-06-19 08:27] LABS: Folate > 20.0 ng/mL (8.6-20.0); Vitamin B12 308 pg/mL (193-986)
[2023-06-19] MEDS: Baclofen 10 MG TAB 40 MG PO ×3 (09:25→20:31)
[2023-06-19] MEDS: Calcium Carbonate 1.5 GM TAB PO ×2 (09:28→22:04)
[2023-06-19] MEDS: Pregabalin 100 MG CAP PO ×3 (09:30→20:32)
[2023-06-19] MEDS: DULoxetine 30 MG CAP 60 MG PO (09:30)
[2023-06-19] MEDS: Senna TAB 1 TAB PO (09:32)
[2023-06-19] MEDS: Multivitamin TAB 1 TAB PO (09:32)
[2023-06-19] MEDS: guaiFENesin 600 MG TABCR PO ×2 (09:34→20:32)
[2023-06-19] MEDS: Polyethylene Glycol 3350 17 GM PACKET PO (09:38)
--- NOTE | 2023-06-19 10:06 | W.PM.PROGNOT ---
Date of Service Date of service: 06/19/23 Time of Service: 10:06 Assessment and Plan Assessment and plan (1) Septic shock: Status: Acute Assessment and plan: patient has been off vasopressors since 06/17/23 at 20:25. I will dc her order for this as she has not been hypotensive; she remains on Zyvox and Meropenem for sacral abscess. Dr. Mobley is working on trying to find a tertiary facility to handle her surgery as this will be a complex debridement, may require ortho as well as general surgery and w/ her subglottic stenosis, our [facility] DI[facility] will not do her surgery here. Patient will likely need TPN soon if she can not take enteral nutrition. If she is not going to have imminent surgery then I would begin feedings if she has no swallowing problems. Critical care time spent interviewing and examining the patient, reviewing studies, discussing case with patient's nurse and consulting physicians was 30 minutes (2) Abscess: Status: Acute Assessment and plan: I agree that this needs surgical debridement. (3) Osteomyelitis: Status: Acute Assessment and plan: as above Qualifiers: Osteomyelitis type: chronic, with draining sinus Osteomyelitis location: other site Qualified Code(s): M86.48 - Chronic osteomyelitis with draining sinus, other site (4) Sacral decubitus ulcer, stage IV: Status: Acute Assessment and plan: as above (5) Multiple sclerosis: Status: Chronic Assessment and plan: not currently on active treatment and has not been for quite some time. She reports allergy to all of the treaments tried. (6) Subglottic stenosis: Status: Acute Assessment and plan: referral to tertiary care center for evaluation by anesthesia +/or pulmonary or ENT (7) Neurogenic bladder: Status: Chronic Assessment and plan: continue crockett drainage (8) Leukopenia: Status: Acute Assessment and plan: historically she has had leukopenia whenever she has had infections. Qualifiers: Leukopenia type: lymphocytopenia Qualified Code(s): D72.810 - Lymphocytopenia Subjective Subjective Interval history since last seen: Patient still w/ rhonchorous breath sounds. She is not acutely dyspneic, She was coughing some purulent mucous last night but she says not much now. She remains on oxygen at 3 lpm. Exam Narrative Exam Narrative: Ethel is alert and oriented, no acute distress, not using accessory respiratory muscles Lungs: bilateral rhonchi, but sound to be mostly in upper chest, probably upper airway congestion Heart: RRR, no murmur or rub Abdomen: obese, soft, nontender Extremities: no edema Objective Last Vital Signs Temp 36.9 C 06/19/23 08:46 Pulse 115 H 06/19/23 08:46 Resp 26 H 06/19/23 08:46 BP 152/78 H 06/19/23 08:46 Pulse Ox 93 06/19/23 08:46 Laboratory Results - last 24 hr 06/18/23 06/18/23 06/19/23 06:06 20:32 05:26 WBC 1.94 L* 2.21 L 2.09 L RBC 2.91 L 2.94 L 3.17 L Hgb 8.0 L 8.3 L 8.6 L Hct 26.4 L 26.8 L 28.6 L MCV 91 91 90 MCH 27.5 28.2 27.1 MCHC 30.3 L 31.0 L 30.1 L RDW 17.8 H 17.8 H 17.6 H Plt Count 227 204 223 MPV 10.2 10.5 10.7 Reticulocyte % (Auto) 1.8 Immature Gran % 0.5 0.0 2.4 Neutrophils % 70.2 70.0 78.4 Band Neutrophils % 1 Lymphocytes % 20.1 15.0 11.5 Atypical Lymphs % 1 Monocytes % 8.2 11.0 7.2 Eosinophils % 0.5 1.0 0.5 Basophils % 0.5 1.0 0.0 Nucleated RBC % 0.0 0.0 0.0 Absolute Neutrophils 1.36 1.57 1.64 Absolute Lymphocytes 0.39 L 0.35 L 0.24 L Absolute Monocytes 0.16 0.24 0.15 Absolute Eosinophils 0.01 0.02 0.01 Absolute Basophils 0.01 0.02 0.00 RBC Morphology Normal See Below Hypochromasia 2+ ESR 45 H VBG Lactate 0.6 Sodium 140 140 Potassium 3.6 3.4 L Chloride 106 102 Carbon Dioxide 28.8 29.9 Anion Gap 5.2 8.1 BUN 7 4 L Creatinine 0.5 L 0.6 Est GFR (CKD-EPI 2020) 119.27 114.15 Glucose 123 H 105 Hemoglobin A1c 5.7 Calcium 8.2 L 8.1 L Magnesium 1.8 Iron 9 L TIBC 123 L Transferrin % Sat 7 L Ferritin 838 H Lactate Dehydrogenase 176 C-Reactive Protein 8.18 H 6.90 H Vitamin B12 308 Folate > 20.0 H Time Spent with Patient Time Spent with Patient: 25-34 minutes Time was spent: preparing to see the patient(eg.review tests), ordering medications,tests, procedures, referring, communicating with other health menagerie caretaker, indepentently interpreting results, counseling the patient and care coordination
[2023-06-19 10:11] LABS: Lab Add On Test DONE
--- NOTE | 2023-06-19 10:50 | DI.MRI_ITS ---
Exam(s) MR PELVIS WO EXAM: MR PELVIS WO CLINICAL HISTORY: eval pelvic osteomylelitis TECHNIQUE: Multiplanar multisequence MRI of Pelvis was performed COMPARISON: CT CT CHEST PE ABD PELVIS W from 06/16/[address] PELVIC W from 06/18/2023 FINDINGS: Bones: Destructive changes are seen at the left ischial tuberosity with hypointense T1 signal distri buted through the ischium and into the posterior aspect of the left inferior pubic ramus. There is c orresponding hyperintense T2 signal. There is hyperintense signal which extends into the posterior w all of the left acetabulum and into the anterior aspect of the left inferior pubic ramus which may be reactive. There is a 1.7 AP by 5.4 transverse by 1.5 craniocaudad cm fluid collection in the soft t issues adjacent to the left ischium. This is most suggestive of an abscess. There is edema in the a djacent soft tissues. There is a chronic posterior subluxation of the right hip. Musculotendinous structures: There is edema in the adjacent left obturator muscles. Note is made of a Melendez catheter within the urinary bladder. There is diffuse edema in the soft tissues of the lowe r extremities. IMPRESSION: 1. Findings consistent with osteomyelitis involving the left ischial tuberosity with extension into t he posterior aspect of the left inferior pubic ramus. There is T2 hyperintense signal sending into t he left posterior acetabulum and the anterior aspect of the left inferior pubic ramus which may be re active. 2. 1.7 x 5.4 x 1.5 cm abscess adjacent to the left ischial tuberosity. 3. Edema seen in the soft tissues of the lower extremity consistent with cellulitis. Edema seen in t he adjacent left obturator muscles. Infection/inflammation should be considered. DATA REPOSITORY:
[2023-06-19] MEDS: LINEZOLID 600 MG/300 ML BAG 150 MG IVPB (11:24)
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
[2023-06-19] MEDS: POTASSIUM CHLORIDE 20 MEQ/100 ML BAG 50 MEQ IVPB (12:02)
[2023-06-19 13:33] LABS: Magnesium 1.8 mg/dL (1.8-2.4)
--- NOTE | 2023-06-19 15:23 | NUR.NOTE ---
Patient has a chronic indwelling crockett catheter.Nursing Note:
--- NOTE | 2023-06-19 16:11 | CHAPLAIN ---
Ethel told me right away that she's been accepted to a hospital in [place], [place] to have her abscess and wound surgically debried. It's been a long time coming, she said of the procedure. She is waiting to hear that a bed has opened up, and then she'll be transported to [facility]. I gave Ethel a prayer shawl to take with her. Ethel has MS, is unable to get out of bed and lives at [facility]. She wasn't sure if she'll return here or go back to [facility] after her surgery.
--- NOTE | 2023-06-19 16:22 | CMPROGNOTE_ITS ---
Date of service: 06/19/23 Time of Service: 16:22 Care Management Progress Note Progress Note Text Progress Note Text: Per Ethel STEWART has been accepted in transfer to [place], [place]. She will transport via EMS.
--- NOTE | 2023-06-19 17:20 | PT.INIE ---
PT Notes Visit Reasons: Sepsis Inpatient Physical Therapy Evaluation Date: 06/19/2022 Referring Doctor: Shauna Gray MD PT Orders: PT CONSULT: History of MS and quadriplegia. Wheelchair-bound. Stage !V pressure ulcer Precautions: Standard. Paraplegic. Uses mechanical lift for all transfers. Patient Profile/Admitting Diagnosis: Patient is a 42-year-old female resident of 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 PMHX: All Active Problems (Updated 06/17/23 @ 17:05 by Nikolas Mobley MD) Critical airway (Acute) Acute hypoxemic respiratory failure (Acute) Abscess (Acute) Sepsis (Acute) Septic shock (Acute) Chronic wound (Acute) Constipation (Acute) Discharge planning issues (Acute) Discharge planning issues (Acute) Positive blood cultures (Acute) Lactic acidosis (Acute) Pressure injury of buttock, stage 3 (Acute) Hypothyroidism (Chronic) UTI (urinary tract infection), bacterial (Acute) Advance care planning (Acute) Advance directive discussed with patient (Acute) Decreased activities of daily living (ADL) (Acute) Burning with urination (Acute) Full code status (Chronic) wants aggressive careLonely (Acute) Dysarthria (Acute) S/P partial glossectomy (Acute) History of tongue cancer (Acute) Wheelchair bound (Chronic) requires Christy lift to transfer; cannot stand and pivotNursing home resident (Acute) Palliative care patient (Acute) Pulmonary infiltrates on CXR (Acute) Abdominal pain (Acute) H/O: hysterectomy (Chronic) Spasticity (Acute) Diabetic neuropathy (Acute) Poor intravenous access (Acute) Blood loss anemia (Acute) Abnormal uterine bleeding (Acute) Breakthrough bleeding on Depo-Provera (Acute) SIRS (systemic inflammatory response syndrome) (Acute) Mass of tongue (Acute 06/29/17) Muscle spasticity (Acute 06/29/14) Neurogenic bladder (Acute 06/29/14) Neuropathic pain (Acute 06/29/14) Obesity (Acute 06/29/17) Obstructive sleep apnea (adult) (pediatric) (Acute 06/29/17) Rosacea (Acute 06/29/14) Type 2 diabetes mellitus with hyperglycemia (Chronic 06/01/17) Urinary incontinence (Acute 05/12/17) Urinary retention (Acute 05/12/17) 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) Hemochromatosis (Chronic) Tongue cancer (Acute) PEG tube malfunction (Acute) Disposition (Acute) Oral thrush (Acute) Feeding by G-tube (Acute) Neurogenic bladder (Chronic) Cellulitis and abscess of neck (Acute) 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 Pt uses adult diapers for incontinence. No clots.Catatonia DVT (deep venous thrombosis) Surgical History History of tracheostomy This was temporary after aspiration when the patient was younger as a complication of her JESSY/P percutaneous endoscopic gastrostomy (PEG) tube placement This is now not present have been removed patient able to swallowHistory of skin graft Patient states that he harvested from tendons and vessels from her right forearm and then took skin graft from her thigh to cover the defect on the right forearm as a treated her squamous cell carcinoma of her tongue with resection. Social History/Home Situation: Patient is a resident of SNF. Total assist with all transfers. Main mode of mobility in facility is through use of motorized wheelchair. Equipment Owned/DME: Motorized wheelchair Subjective: Does not feel well. Aware that she may go to [facility] today. Objective: General Observation: Increased trunk lean to the R. R LE in full internal rotation at the hip, fixed at 120 degrees flexion at the knee, tibial internal rotation at the knee, and 20 degrees plantarflexion as well as 10 degrees inversion at the ankle Mental Status: A and O x3, speech slightly unintelligible due to previous tongue surgery Pain: L hip at 5/10 when trunk is slowly pushed to midline toward her left side ROM: Right Upper Extremity: Shoulder flexion at 60 degrees. She is able to demonstrate full opening of the hand, although demonstrates significant flexor tone at rest. She also has visible atrophy of the hand intrinsics. Dexterity impaired. Left Upper Extremity: Shoulder flexion at 150 degrees. She is able to demonstrate full opening of the hand, although demonstrates significant flexor tone at rest. She also has visible atrophy of the hand intrinsics. Right Lower Extremity: R LE bent at the hips about 70-80 degrees and in full internal rotation at the hip, fixed at 120 degrees flexion at the knee, tibial internal rotation at the knee, and 20 degrees plantarflexion as well as 10 degrees inversion at the ankle Left Lower Extremity: Hip and knee in neutral position and 45 degrees of plantarflexion. Strength: Right Upper Extremity: Grossly 3-/5 Left Upper Extremity: Grossly 2-/5 Right Lower Extremity: N/A, paraplegia Left Lower Extremity: N/A, paraplegia Bed Mobility/Transfers: Rolling: moderate assist on either side, can use L UE to assist with rolling to R Supine to sit: Total dependence Bed to chair: Total dependence Gait: N/A. Paraplegic. Wheelchair-bound. Balance: Static Sitting: Unable Dynamic Sitting: Unable Static Standing: Unable Dynamic Standing: Unable Special Tests: Mobility Limitations Standardized Measure [facility] 6 clicks Basic Mobility Inpatient Short Form: Raw Score: 6 CMS Score: 100% deficit Informed Consent/Education: Patient instructed in purpose of PT consult and plan of care. ASSESSMENT: Patient is a 42-year-old female resident of 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 She has had her wheelchair for over 5 years now and she therefore will require full seating/wheelchair re-assessment at the [facility] to accommodate new postural deformities, prevent further skin breakdown, maximize positioning and comfort while improving activity participation as well as cardiorespiratory function. She currently demonstrated by the following impairment level findings: 1. Fixed flexion contracture right lower extremity 2. Neurogenic bladder 3. Decreased strength bilateral upper and lower 4. Decreased trunk control 5. Lymphedema of head and neck Impairments are contributing to the following functional limitations: 1. Dependent for transfers 2. Dependent for bed mobility 3. Non-ambulatory 4. Dependent for positioning of lower extremities 5. 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 Patient is admitted for management of new diagnoses of UTI, SIRS, and lactic acidosis. Examination: Functional limitations as noted above Presentation: Evolving Decision Makin high complexity Plan of Care/Treatment Plan: No skilled service needed at this time. Patient as baseline levle requiring total asssist for all bed mobility and transfers. Continue with proper patient positioning to maiatain skin integrity and prevent further skin breakdown to existing pressure ulcer. DISCHARGE RECOMMENDATIONS: Return to SNF when medically cleared. Will benefit from outpatient lymphedema management to maintain head/neck AROM, minimize pain, and facilitate optimal head/neck positioning. TREATMENT CODE/TIME: [id number] x 25 minutes for 1 unit beginning at 8:48 AM. Thank you for the opportunity to participate in the care of this patient. Kitty Ellis PT, DPT, CLT [facility] [place], [place]
[2023-06-19 20:11] LABS: HIV-1/2 Ag & Ab Screen Negative (Negative)
[2023-06-19] MEDS: Docusate Sodium 100 MG CAP 200 MG PO (20:32)
[2023-06-19] MEDS: LINEZOLID 600 MG/300 ML BAG 300 MG IVPB (22:17)
[2023-06-19 23:08] LABS: HBs Antibody, Qual Negative (See Note); HBs Antibody, Quant <3.1 mIU/mL (See Note); Hepatitis B Core Antibody Negative (Negative); Hepatitis B surface Ag Negative (Negative); Hepatitis C Ab w Rflx HCV PCR Negative (Negative)
[2023-06-20] VITALS (95 sets, daily range): BP systolic 118–139; BP diastolic 69–79; PULSE 80–125; RESP 3–24; TEMP 36.3–37; O2SAT 84–98
[2023-06-20] MEDS: Albuterol/Ipratropium 3 ML UPD VIAL UPD ×5 (03:40→23:49)
[2023-06-20] MEDS: Normal Saline Flush 10 ML SYR IVP ×2 (03:41→05:30)
[2023-06-20] MEDS: Levothyroxine 25 MCG TAB PO (05:30)
[2023-06-20] MEDS: Lactated Ringers 1,000 ML 125 ML IV ×2 (06:20→16:45)
[2023-06-20 07:17] LABS: Absolute Basophil Count 0.01 10^3/uL (0.0-0.2); Absolute Eosinophil Count 0.02 10^3/uL (0.0-0.7); Absolute Lymphocyte Count 0.36 10^3/uL (1.2-3.4); Absolute Monocyte Count 0.17 10^3/uL (0.1-0.8); Absolute Neutrophil Count 1.69 10^3/uL (1.2-6.7); Basophils % 0.4; Eosinophils % 0.9; HCT 27.1 % (36.0-46.0); HGB 8.2 g/dL (11.2-15.7); MCH 27.4 pg (27.0-33.0); MCHC 30.3 % (32.0-36.0); MCV 91 fL (80-95); MPV 10.4 fL (8.0-11.0); Monocytes % 7.6; Neutrophils % 75.1; Platelet Count 208 10^3/uL (130-400); RBC 2.99 10^6/uL (3.93-5.22); RDW 17.6 % (11.7-14.6); RDW-SD 58.9 fL; WBC 2.25 10^3/uL (4.4-10.8)
[2023-06-20 07:30] LABS: ESR 49 mm/hr (0-20)
[2023-06-20 07:44] LABS: Anion Gap 5.1 mmol/L (3-11); BUN 5 mg/dL (7-18); C-Reactive Protein 7.69 mg/dL (0.0-0.3); CO2 31.9 mmol/L (21.0-32.0); CREATININE 0.5 mg/dL (0.55-1.02); Calcium 8.5 mg/dL (8.5-10.1); Chloride 103 mmol/L (98-107); Estimated GFR 119.27 (mL/min/1.73m2); Glucose 98 mg/dL (74-106); Potassium 3.6 mmol/L (3.5-5.1); Sodium 140 mmol/L (136-145)
--- NOTE | 2023-06-20 08:28 | W.PM.PROGNOT ---
Date of Service Date of service: 06/20/23 Time of Service: 09:45 Assessment and Plan Assessment and plan (1) Sacral decubitus ulcer, stage IV: Status: Acute Assessment and plan: 42-year-old woman with a soft tissue pelvic abscess related to left?sided ischial decubitus ulcer. She has a draining sinus tract but presumably the abscess has not yet gained communication with this existing sinus tract. She has underlying osteomyelitis which is of no surprise. She is responding medically to broad?Spectrum IV antibiotics. She is not requiring any pressors nor she hemodynamically unstable. She does need definitive management with surgical exploration, debridement and will likely have a relatively large section of muscle and fascia excised in addition to possibly needing some of her pelvic bones scraped. She will have a large soft tissue defect after the procedure despite the skin being completely viable over top. She will probably benefit from wound VAC therapy though historically this has been pretty painful for her from the sounds of it. This will be a long?standing and very chronic problem for her. She is likely to experience a lot of discomfort and pain following the procedure and in the wound?changes that are to come for the next couple of months if not longer. She has been accepted at an outside facility for transfer. She is supposed to go down today and will have multidisciplinary operative debridement, presumably tomorrow. For now she is otherwise hemodynamically stable despite a low?grade sinus tachycardia. She has good blood pressures. She is making good urine. She is not having any evidence of organ failure. Her pain is controlled and really basically nonexistent at this time. That would change after surgery. She can definitely eat and can be made n.p.o. at the time of transfer. Overall plan: Clear liquids and protein shakes Continue IV fluids and IV antibiotics Transfer when bed available DVT prophylaxis Subjective Subjective Interval history since last seen: At the bedside the patient reports no new changes. She feels pretty well. She is having bowel function. She does not have any significant pain. She mostly feels herself and does not feel sick. She has not required any pressors overnight. She is making good urine output. She denies any significant appetite. Still awaiting transfer to [place] Exam Narrative Exam Narrative: General: Nontoxic, comfortable and interactive Neuro: Alert and oriented x 3 Psych: Good mood and affect, good insight and understanding into her conditions Extremities: She has contracted bilateral lower extremities. Her upper extremity seems somewhat flaccid. Buttocks: We rolled her as a team. Chaperones are present. I examined the left buttock. There is a draining sinus tract with purulent, foul?smelling/malodorous fluid coming out of it. I remove the packing that was in it. I changed the dressing with a gentle 4 x 4 placed into the sinus tract which measures about 2 cm in diameter and probes all the way to the bone. A Mepilex dressing was placed on top. All of the skin around the sinus tract appears completely intact and viable. Objective Last Vital Signs Temp 98.1 F 06/20/23 07:35 Pulse 97 H 06/20/23 07:35 Resp 17 06/20/23 07:35 BP 131/79 06/20/23 07:35 Pulse Ox 93 06/20/23 07:35 Laboratory Results - last 24 hr 06/19/23 06/19/23 06/20/23 05:26 14:00 05:40 WBC 2.25 L RBC 2.99 L Hgb 8.2 L Hct 27.1 L MCV 91 MCH 27.4 MCHC 30.3 L RDW 17.6 H Plt Count 208 MPV 10.4 Immature Gran % 0.0 Neutrophils % 75.1 Lymphocytes % 16.0 Monocytes % 7.6 Eosinophils % 0.9 Basophils % 0.4 Nucleated RBC % 0.0 Absolute Neutrophils 1.69 Absolute Lymphocytes 0.36 L Absolute Monocytes 0.17 Absolute Eosinophils 0.02 Absolute Basophils 0.01 ESR 49 H Sodium 140 Potassium Cancelled 3.6 Chloride 103 Carbon Dioxide 31.9 Anion Gap 5.1 BUN 5 L Creatinine 0.5 L Est GFR (CKD-EPI 2020) 119.27 Glucose 98 Calcium 8.5 Magnesium 1.8 C-Reactive Protein 7.69 H Vitamin B12 308 Folate > 20.0 H Add-On Test Request DONE Time Spent with Patient Time Spent with Patient: 25-34 minutes Time was spent: preparing to see the patient(eg.review tests), obtaining and/or reviewing separately otained hiistory, ordering medications,tests, procedures, referring, communicating with other health customer care assistant, indepentently interpreting results, counseling the patient and care coordination
[2023-06-20] MEDS: MEROPENEM 1 GM in Normal Saline 100 ML IVPB ×3 (09:16→23:49)
[2023-06-20] MEDS: Calcium Carbonate 1.5 GM TAB PO ×2 (09:26→20:03)
[2023-06-20] MEDS: Docusate Sodium 100 MG CAP 200 MG PO ×2 (09:26→20:03)
[2023-06-20] MEDS: Baclofen 10 MG TAB 40 MG PO ×3 (09:26→20:02)
[2023-06-20] MEDS: DULoxetine 30 MG CAP 60 MG PO (09:27)
[2023-06-20] MEDS: guaiFENesin 600 MG TABCR PO ×2 (09:27→20:03)
[2023-06-20] MEDS: Multivitamin TAB 1 TAB PO (09:28)
[2023-06-20] MEDS: Senna TAB 1 TAB PO (09:33)
[2023-06-20] MEDS: Pregabalin 100 MG CAP PO ×3 (09:33→20:03)
--- NOTE | 2023-06-20 09:50 | NUR.NOTE ---
Patient tolerates taking her medications whole and in apple sauce.Nursing Note:
[2023-06-20] MEDS: LINEZOLID 600 MG/300 ML BAG 150 MG IVPB (10:21)
--- NOTE | 2023-06-20 10:47 | NUR.NOTE ---
Dressing on left gluteal area is changed by Dr. Baxter. Packing was removed and new dry woven gauze packing is applied with a new Mepilex. Same should be changed out by nursing daily. Nursing Note:
[2023-06-20] MEDS: Heparin 5,000 UNITS/ML VIAL 5000 UNITS SC ×2 (11:35→20:02)
--- NOTE | 2023-06-20 12:42 | NUR.NOTE ---
Patient drinks 237ml of Boost in two consecutive sips. Patient says she was thirsty. Patient tolerated same well.Nursing Note:
[2023-06-20] MEDS: Protein Nutritional Supplement 16 GM 1 OUNCE PACKET PO ×2 (14:21→20:02)
[2023-06-20] MEDS: LINEZOLID 600 MG/300 ML BAG 300 MG IVPB (21:55)
[2023-06-20] MEDS: Melatonin 3 MG TAB 9 MG PO (21:56)
[2023-06-20] MEDS: clonazePAM 0.5 MG TAB PO (21:56)
[2023-06-21] VITALS (48 sets, daily range): BP systolic 110–159; BP diastolic 66–89; PULSE 91–134; RESP 3–27; TEMP 36.7–38; O2SAT 86–100
[2023-06-21] MEDS: HYDROmorphone 2 MG TAB PO ×2 (00:46→05:36)
[2023-06-21] MEDS: Lactated Ringers 1,000 ML 125 ML IV (01:58)
[2023-06-21] MEDS: Heparin 5,000 UNITS/ML VIAL 5000 UNITS SC ×3 (03:45→21:50)
[2023-06-21] MEDS: Albuterol/Ipratropium 3 ML UPD VIAL UPD ×5 (03:45→21:48)
[2023-06-21] MEDS: Normal Saline Flush 10 ML SYR IVP (05:26)
[2023-06-21] MEDS: Levothyroxine 25 MCG TAB PO (05:26)
[2023-06-21 06:46] LABS: Abs Immature Grans 0.01 10^3/uL (0.0-0.06); Absolute Basophil Count 0.01 10^3/uL (0.0-0.2); Absolute Eosinophil Count 0.08 10^3/uL (0.0-0.7); Absolute Lymphocyte Count 0.49 10^3/uL (1.2-3.4); Absolute Monocyte Count 0.16 10^3/uL (0.1-0.8); Absolute Neutrophil Count 1.96 10^3/uL (1.2-6.7); Basophils % 0.4; HCT 27.4 % (36.0-46.0); HGB 8.5 g/dL (11.2-15.7); Immature Grans % 0.4; Lymphocytes % 18.1; MCH 28.1 pg (27.0-33.0); MCV 90 fL (80-95); MPV 10.3 fL (8.0-11.0); Monocytes % 5.9; Neutrophils % 72.2; Platelet Count 198 10^3/uL (130-400); RBC 3.03 10^6/uL (3.93-5.22); RDW 17.7 % (11.7-14.6); RDW-SD 59.2 fL; WBC 2.71 10^3/uL (4.4-10.8)
[2023-06-21 06:51] LABS: ESR 51 mm/hr (0-20)
[2023-06-21 07:04] LABS: Anion Gap 4.9 mmol/L (3-11); BUN 5 mg/dL (7-18); C-Reactive Protein 5.51 mg/dL (0.0-0.3); CO2 31.1 mmol/L (21.0-32.0); CREATININE 0.5 mg/dL (0.55-1.02); Calcium 8.5 mg/dL (8.5-10.1); Chloride 105 mmol/L (98-107); Estimated GFR 119.27 (mL/min/1.73m2); Glucose 102 mg/dL (74-106); Potassium 3.3 mmol/L (3.5-5.1); Sodium 141 mmol/L (136-145)
--- NOTE | 2023-06-21 08:09 | W.PM.PROGNOT ---
Date of Service Date of service: 06/21/23 Time of Service: 09:00 Assessment and Plan Assessment and plan (1) Sacral decubitus ulcer, stage IV: Status: Acute Assessment and plan: 42-year-old woman with a left?sided ischial decubitus ulcer which was probably the underlying etiology for sepsis. She has an undrained abscess as well as obvious osteomyelitis and presumable non-viable muscle and fascia around this ulceration which will require extensive operative debridement. This has not been done thus far because of waiting for a bed for transfer. She has known, severe tracheal/subglottic stenosis and on imaging it appears worse than in the past. For these reasons anesthesia stated her operative procedures need to be done at a tertiary center. She has an accepting facility but thus far no bed has become available for transfer. Right now she is hemodynamically stable, her tachycardia definitely goes down into the 90s when she is at rest. Her blood pressure has been fine. She has been afebrile. She continues to have a leukopenia, but chart review shows that this is a chronic issue. She has had multiple admissions/lab work in prior years with leukopenia. Thus I am not convinced this is something we need to worry about too much and to me seems like her baseline. Presumably the abscess is still on?drain but at any given point it may start communicating with her draining sinus tract. So I think we have a reasonable amount of source control in this wound although debridement will still be necessary for definitive management. She definitely does not seem to have sepsis anymore except for the leukopenia and occasional tachycardia . . . Which again, at rest goes away and again, the leukopenia is a chronic issue that I think we can consider to be a baseline response for her. There is no evidence of any organ system failure at this time. Our IV antibiotics are covering the cultured organisms and I think we can actually withdraw the linezolid at this time and leave her on only meropenem. Because of her airway situation, she continues to need to be transferred for her operative intervention but the emergent necessity of this seems to have passed with her clinical stability right now. I do not think she even needs to be in an ICU anymore. I am giving her regular food. She is having bowel function. Her organ systems are working nicely. She is not requiring anything other than a small amount of IV fluids and IV antibiotics. Wound management right now is minimal and really not causing any pain. (She will have severe pain following her operative debridement) Overall plan: Will transfer her out of the ICU and maybe this will make her transfer a little easier as far as bed?availability. Maintain regular diet. She can be n.p.o. in anticipation for a next?day surgical procedure when we have an actual transfer happening. Otherwise maintain meropenem which is covering the bugs Low?dose maintenance IV fluid, turn off resuscitation fluids which are making her edematous High?protein oral intake Await transfer DVT prophylaxis Subjective Subjective Interval history since last seen: At the bedside there are no events overnight. Basically clinical status is unchanged. She denies any left buttock or left hip pain at the time. Her right shoulder is a little uncomfortable for some reason. No fevers. Her heart rate fluctuates from the 90s to low 100. Her blood pressure has been completely stable and she is not requiring any pressors and has not required any pressors for couple of days now. Cultures are growing bacteria sensitive to meropenem. She continues to have excellent urine output. She tolerated a little bit of food yesterday but does not have much of an appetite she says. She has been having bowel function. Exam Narrative Exam Narrative: General: Nontoxic, comfortable and interactive. She is pleasant and really in no distress and does not appear acutely ill. Neuro: Alert and oriented x 3 Psych: Pleasant mood and affect, good insight and understanding into her condition Chest: Nonlabored breathing Heart: Sinus tachycardia, low?grade, regular Extremities: She does seem to be getting a little bit of peripheral edema in all 4 extremities. Objective Last Vital Signs Temp 98.1 F 06/21/23 06:00 Pulse 108 H 06/21/23 07:48 Resp 15 06/21/23 07:48 BP 121/71 06/21/23 06:00 Pulse Ox 94 06/21/23 07:48 Laboratory Results - last 24 hr 06/21/23 05:30 WBC 2.71 L RBC 3.03 L Hgb 8.5 L Hct 27.4 L MCV 90 MCH 28.1 MCHC 31.0 L RDW 17.7 H Plt Count 198 MPV 10.3 Immature Gran % 0.4 Neutrophils % 72.2 Lymphocytes % 18.1 Monocytes % 5.9 Eosinophils % 3.0 Basophils % 0.4 Nucleated RBC % 0.0 Absolute Neutrophils 1.96 Absolute Lymphocytes 0.49 L Absolute Monocytes 0.16 Absolute Eosinophils 0.08 Absolute Basophils 0.01 ESR 51 H Sodium 141 Potassium 3.3 L Chloride 105 Carbon Dioxide 31.1 Anion Gap 4.9 BUN 5 L Creatinine 0.5 L Est GFR (CKD-EPI 2020) 119.27 Glucose 102 Calcium 8.5 C-Reactive Protein 5.51 H Time Spent with Patient Time Spent with Patient: <25 minutes Time was spent: preparing to see the patient(eg.review tests), indepentently interpreting results and care coordination
[2023-06-21] MEDS: Docusate Sodium 100 MG CAP 200 MG PO ×2 (08:47→21:36)
[2023-06-21] MEDS: guaiFENesin 600 MG TABCR PO ×2 (08:48→21:37)
[2023-06-21] MEDS: Baclofen 10 MG TAB 40 MG PO ×3 (08:48→21:37)
[2023-06-21] MEDS: Senna TAB 1 TAB PO (08:48)
[2023-06-21] MEDS: Pregabalin 100 MG CAP PO ×3 (08:48→21:36)
[2023-06-21] MEDS: DULoxetine 30 MG CAP 60 MG PO (08:48)
[2023-06-21] MEDS: Calcium Carbonate 1.5 GM TAB PO ×2 (08:48→21:36)
[2023-06-21] MEDS: Multivitamin TAB 1 TAB PO (08:49)
[2023-06-21] MEDS: fentaNYL 25 MCG PATCH TD (08:49)
[2023-06-21] MEDS: MEROPENEM 1 GM in Normal Saline 100 ML IVPB ×2 (08:50→16:21)
[2023-06-21] MEDS: Polyethylene Glycol 3350 17 GM PACKET PO (09:01)
[2023-06-21] MEDS: Protein Nutritional Supplement 16 GM 1 OUNCE PACKET PO ×3 (09:01→21:50)
[2023-06-21] MEDS: POTASSIUM CHLORIDE/D5-0.45NACL 1,000 ML 50 MEQ IV (11:35)
--- NOTE | 2023-06-21 14:15 | DI.CT_ITS ---
Exam(s) CT HEAD NECK WO EXAM: CT HEAD NECK WO CLINICAL HISTORY: unequal pupils, ams. TECHNIQUE: Imaging Protocol: Axial computed tomography images with coronal and sagittal reformatted images were created and reviewed COMPARISON: CT CT HEAD NECK W from 05/06/2020 FINDINGS: BRAIN: There are no skull fractures. There is fluid in all of the paranasal sinuses including the frontal s inuses. Consistent with pansinusitis. There is also some fluid in the right mastoid air cells There is no evidence of intracranial hemorrhage, new mass effect, or shift of midline structures. Th ere are no extra-axial fluid collections. The ventricles are not enlarged or shifted and there is no blood within the ventricular system nor within the basal cisterns. There are abnormal areas of periventricular hypodensity as well as an asymmetric area of hypodensity in the posterior right temporal lobe but unchanged from 2020. CERVICAL SPINE: There is no evidence of fracture nor listhesis. No significant prevertebral soft tissue swelling. There is anterior fusion across C4-5 level. No significant disc space narrowing at this level. Othe r levels also exhibit normal disc height. There is no significant facet arthropathy. No facet malal ignment. No significant osseous lesions evident. IMPRESSION: The main acute finding here is pansinusitis. There are fluid levels in all of the paranasal sinuses, including the frontal sinuses. No acute intracranial findings on this noninfused CT scan of the brain.There are multiple areas of ab normal periventricular white matter hypodensity but these are unchanged from 2020. Nevertheless, thi s is more so than expected in this age group with respect to chronic small vessel disease. Correlati on with any history of demyelinating disease such as multiple sclerosis is recommended. No evidence of cervical spine fracture, malalignment, nor acute compromise of the cervical spinal can al. First read by [facility]. Final report called by myself to ICU 06/21/2023 at 8 p.m. RADIATION DOSE DELIVERED: 1,334.36mGy.cm Total DLP DATA REPOSITORY: All CT scans at this facility are submitted to the National Radiology Data Registry (NRDR) Dose Index Registry (DIR) with the [employer] (A[employer]). RADIATION OPTIMIZATION: All CT scans at this facility use at least one of these dose optimization te chniques: automated exposure control; mA and/or kV adjustment per patient size (includes targeted exa ms where dose is matched to clinical indication); or iterative reconstruction.
--- NOTE | 2023-06-21 15:16 | DI.VRAD_ITS ---
PROCEDURE INFORMATION: Exam: CT Head Without Contrast Exam date and time: 06/21/2023 2:50 PM Age: 42 years old Clinical indication: Other: Unequal pupils, AMS TECHNIQUE: Imaging protocol: Computed tomography of the head without contrast. Radiation optimization: All CT scans at this facility use at least one of these dose optimization techniques: automated exposure control; mA and/or kV adjustment per patient size (includes targeted exams where dose is matched to clinical indication); or iterative reconstruction. COMPARISON: CT HEAD NECK W 05/06/2020 6:38 PM FINDINGS: Brain: Left posterior temporal encephalomalacia. Bilateral white matter periventricular hypodensities. No evidence for acute transcortical infarct. No mass effect or midline shift. No extra-axial collection. No acute intracranial hemorrhage. Basal cisterns are patent. Cerebral ventricles: No ventriculomegaly. Paranasal sinuses: Mucosal thickening involving paranasal sinuses. Mastoid air cells: Visualized mastoid air cells are well aerated. Bones/joints: Unremarkable. No acute fracture. Soft tissues: Unremarkable. IMPRESSION: 1. Bilateral white matter periventricular hypodensities. Differential diagnosis includes early onset chronic microvascular ischemic changes as well as demyelinating disease. 2. No evidence for acute transcortical infarct, acute intracranial hemorrhage, or mass effect. PROCEDURE INFORMATION: Exam: CT Cervical Spine Without Contrast Exam date and time: 06/21/2023 2:50 PM Age: 42 years old Clinical indication: Other: Unequal pupils, AMS TECHNIQUE: Imaging protocol: Computed tomography of the cervical spine without contrast. Radiation optimization: All CT scans at this facility use at least one of these dose optimization techniques: automated exposure control; mA and/or kV adjustment per patient size (includes targeted exams where dose is matched to clinical indication); or iterative reconstruction. COMPARISON: CT HEAD NECK W 05/06/2020 6:38 PM FINDINGS: Bones/joints: No acute fracture or traumatic subluxation. No spondylolisthesis. The atlantooccipital and atlantoaxial articulations are intact. Occipital condyles are intact. Facet joint alignments are maintained. Age-related degenerative disc disease. Multilevel degenerative changes of the cervical spine. Prevertebral and retropharyngeal spaces: No prevertebral soft tissue swelling. Lungs: Lung apices are normal. Soft tissues: Multiple right neck surgical clips. IMPRESSION: No acute fracture or traumatic subluxation. Dictated and Authenticated by: Jaret Breaux MD. Ordering:VIV Parrish MD
--- NOTE | 2023-06-21 15:22 | W.PM.PROGNOT ---
Date of Service Date of service: 06/21/23 Time of Service: 15:22 Assessment and Plan Assessment and plan (1) Transient alteration of awareness: Status: Acute Assessment and plan: I am not sure what the baseline pupil sizes have been but she seems to have intact vision and no focal signs of stroke. While I can not say for sure that this was not a TIA or even an absence seizure, neither explain the anisocoria. She had a noncontrast CT head that results are pending, I think that it would be prudent to do CTA of head and neck to rule out any cerebrovascular hemodynamic lesions. I will also give her ASA 324 mg and keep her on ASA 81 mg daily. It may be worth checking EEG tomorrow. Unless she has further spells I would not put her on any anti-epileptic medications. Subjective Subjective Interval history since last seen: CTSP by Dr. Baxter to evaluate patient out of concern for acute CVA. Her nurse called Dr. Baxter d/t the nurse noticed a difference in patient's pupils sized R 4 mm and L 6 mm and patient seemed slower to response than usual, was confused as to where she is at and seemed more letharagic than usual. Per her nurse Rachna, the patient thought that she was still over at [facility]. This occurred at 1330 and over the course of an hour she re-oriented and knew where she is. Per her nurse Rachna, who has had her for past 3 days her pupils previously were both 4 mm . Exam Narrative Exam Narrative: Ethel is alert, oriented to person, place (hospital in [facility] and month and year) She denies any headache or blurred vision Pupils slight anisocoria w/ right pupil slightly smaller than left but both equally reactive to direct and consensual light, full EOMI Visual sorenson grossly intact to confrontation, she was able to see laterally both sided, able to visual my entire face and see which fingers I was wiggling even w/ closing one eye at a time. I could not detect any gross visual fied defects. 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 however sensation is intact to light touch over her face and both arms Objective Last Vital Signs Temp 37.1 C 06/21/23 10:00 Pulse 110 H 06/21/23 13:16 Resp 18 06/21/23 13:16 BP 129/74 06/21/23 12:00 Pulse Ox 94 06/21/23 13:16 Laboratory Results - last 24 hr 06/21/23 05:30 WBC 2.71 L RBC 3.03 L Hgb 8.5 L Hct 27.4 L MCV 90 MCH 28.1 MCHC 31.0 L RDW 17.7 H Plt Count 198 MPV 10.3 Immature Gran % 0.4 Neutrophils % 72.2 Lymphocytes % 18.1 Monocytes % 5.9 Eosinophils % 3.0 Basophils % 0.4 Nucleated RBC % 0.0 Absolute Neutrophils 1.96 Absolute Lymphocytes 0.49 L Absolute Monocytes 0.16 Absolute Eosinophils 0.08 Absolute Basophils 0.01 ESR 51 H Sodium 141 Potassium 3.3 L Chloride 105 Carbon Dioxide 31.1 Anion Gap 4.9 BUN 5 L Creatinine 0.5 L Est GFR (CKD-EPI 2020) 119.27 Glucose 102 Calcium 8.5 C-Reactive Protein 5.51 H Time Spent with Patient Time Spent with Patient: 35-49 minutes Time was spent: preparing to see the patient(eg.review tests), ordering medications,tests, procedures, referring, communicating with other health primary care coordinator (Dr. Baxter and Rachna, patient's nurse), counseling the patient and care coordination
[2023-06-21] MEDS: Aspirin 81 MG CHEW 324 MG CH (16:22)
--- NOTE | 2023-06-21 20:08 | PGE_ITS ---
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 Disease is severe enough that it is visible on radiographic imaging and has been for years. It has essentially rendered her bedridden and unable to move any of her extremities and what little movement she still has left from her chest through her neck and head is weak at best. I am sure this is why her pupils were unequal on examination. In any event she seems to be herself to me at the bedside. I really do not have much of a suspicion for an ongoing acute stroke clinically. I think her baseline neurologic status is so severely impaired and nonfunctional that it would be very difficult to identify a stroke happening were she to actually be having one. Her CT of the head was essentially unrevealing outside of her chronic disease conditions which are already known and probably the underlying explanation for what ever deficits were observed. At this time, I do not think anything else should be worked up or done in this regard. We we will continue to await transfer for definitive management of her acute on chronic pressure ulcers and osteomyelitis. I did request the hospitalist to weigh in on the possibility of a stroke or not clinically, and he agrees there is a very low likelihood that anything acute is going on with her nervous system. I appreciate the hospitalist input. Since there is no surgical intervention happening here [facility], if the patient continues to require ICU care while waiting transfer to the outside hospital, will discuss transferring her to the medical service tomorrow. Is a completely separate issue, I am pretty worried that her quality of life is going to be drastically worse after operative intervention. Considering she still has a lot of sensation neurologically despite her lack of motor function, her wounds are likely to be extremely painful following the surgical procedures. Hopefully this is not the case, but palliative care and her PCP are probably going to need to be significantly involved in her care when she returns. Subjective Subjective Interval history since last seen: I was called by nursing staff earlier this afternoon over concerns that the patient is having an acute stroke. They report she is talking different and her pupils are not equal, when previously they were. Pending these reported acute changes, I did order her to be sent for stat CT of the head which ended up showing chronic findings but no evidence of an acute problem. At the bedside the patient does not really have any complaints or concerns. She denies any visual changes. Exam Narrative Exam Narrative: General: Nontoxic, interactive and unchanged from her usual baseline. Neuro: Alert and oriented x 3. Her cranial nerves II through XII are grossly intact and are grossly symmetrical. There is no facial droop. There is no obvious tongue deviation. Her speech (at baseline is poor) is her normal. Motor effort in her extremities cannot be assessed due to her baseline condition. Psych: Baseline mood and affect, good insight and understanding into her condition Extremities: Baseline which is contracted and grossly nonmobile x 4. Objective Last Vital Signs Temp 98.8 F 06/21/23 10:00 Pulse 124 H 06/21/23 17:42 Resp 19 06/21/23 17:42 BP 158/85 H 06/21/23 17:42 Pulse Ox 96 06/21/23 17:42 Laboratory Results - last 24 hr 06/21/23 05:30 WBC 2.71 L RBC 3.03 L Hgb 8.5 L Hct 27.4 L MCV 90 MCH 28.1 MCHC 31.0 L RDW 17.7 H Plt Count 198 MPV 10.3 Immature Gran % 0.4 Neutrophils % 72.2 Lymphocytes % 18.1 Monocytes % 5.9 Eosinophils % 3.0 Basophils % 0.4 Nucleated RBC % 0.0 Absolute Neutrophils 1.96 Absolute Lymphocytes 0.49 L Absolute Monocytes 0.16 Absolute Eosinophils 0.08 Absolute Basophils 0.01 ESR 51 H Sodium 141 Potassium 3.3 L Chloride 105 Carbon Dioxide 31.1 Anion Gap 4.9 BUN 5 L Creatinine 0.5 L Est GFR (CKD-EPI 2020) 119.27 Glucose 102 Calcium 8.5 C-Reactive Protein 5.51 H Time Spent with Patient Time Spent with Patient: 25-34 minutes Time was spent: ordering medications,tests, procedures, referring, communicating with other health career services coordinator and indepentently interpreting results
[2023-06-21] MEDS: Melatonin 3 MG TAB 9 MG PO (21:36)
[2023-06-21] MEDS: clonazePAM 0.5 MG TAB PO (21:36)
[2023-06-21] MEDS: Acetaminophen 325 MG TAB 650 MG PO (22:08)
[2023-06-22] VITALS (48 sets, daily range): BP systolic 96–135; BP diastolic 55–80; PULSE 86–124; RESP 2–27; TEMP 35.7–37.5; O2SAT 89–100
[2023-06-22] MEDS: MEROPENEM 1 GM in Normal Saline 100 ML IVPB ×3 (00:08→17:02)
[2023-06-22] MEDS: Normal Saline Flush 10 ML SYR IVP ×2 (00:10→09:00)
[2023-06-22] MEDS: Albuterol/Ipratropium 3 ML UPD VIAL UPD ×5 (01:56→19:33)
[2023-06-22 06:39] LABS: HGB 7.6 g/dL (11.2-15.7); MCH 27.5 pg (27.0-33.0); MCHC 30.4 % (32.0-36.0); MCV 91 fL (80-95); MPV 10.3 fL (8.0-11.0); Platelet Count 190 10^3/uL (130-400); RBC 2.76 10^6/uL (3.93-5.22); RDW-SD 59.6 fL; WBC 2.73 10^3/uL (4.4-10.8)
[2023-06-22] MEDS: POTASSIUM CHLORIDE/D5-0.45NACL 1,000 ML 50 MEQ IV (06:44)
[2023-06-22] MEDS: Heparin 5,000 UNITS/ML VIAL 5000 UNITS SC ×3 (06:45→22:38)
[2023-06-22] MEDS: Levothyroxine 25 MCG TAB PO (06:45)
[2023-06-22 06:49] LABS: ESR 38 mm/hr (0-20)
[2023-06-22 06:53] LABS: Anion Gap 3.4 mmol/L (3-11); BUN 5 mg/dL (7-18); C-Reactive Protein 8.02 mg/dL (0.0-0.3); CO2 32.6 mmol/L (21.0-32.0); CREATININE 0.5 mg/dL (0.55-1.02); Calcium 8.1 mg/dL (8.5-10.1); Chloride 105 mmol/L (98-107); Estimated GFR 119.27 (mL/min/1.73m2); Glucose 141 mg/dL (74-106); Potassium 3.5 mmol/L (3.5-5.1); Sodium 141 mmol/L (136-145)
[2023-06-22 07:40] LABS: Absolute Lymphocyte Count 0.33 10^3/uL (1.2-3.4); Absolute Neutrophil Count 2.32 10^3/uL (1.2-6.7); Atypical Lymphocytes % 3; Bands % 8
[2023-06-22 07:41] LABS: Absolute Monocyte Count 0.08 10^3/uL (0.1-0.8); Anisocytosis 1+; Diff Comment Manual Differential
--- NOTE | 2023-06-22 08:51 | PDOC.CMPRO ---
Date of service: 06/22/23 Time of Service: 08:51 Care Management Progress Note Progress Note Text Progress Note Text: Still awaiting bed availability for transfer. Per surgeon, concerned for increased pain post surgically with recommendation for close follow up with Palliative; CM notified Palliative team.
[2023-06-22] MEDS: Protein Nutritional Supplement 16 GM 1 OUNCE PACKET PO ×3 (08:58→20:09)
[2023-06-22] MEDS: DULoxetine 30 MG CAP 60 MG PO (08:59)
[2023-06-22] MEDS: Calcium Carbonate 1.5 GM TAB PO ×2 (08:59→20:12)
[2023-06-22] MEDS: Baclofen 10 MG TAB 40 MG PO ×3 (08:59→20:10)
[2023-06-22] MEDS: Polyethylene Glycol 3350 17 GM PACKET PO (08:59)
[2023-06-22] MEDS: Aspirin E.C. 81 MG TABEC PO (08:59)
[2023-06-22] MEDS: guaiFENesin 600 MG TABCR PO ×2 (09:00→20:11)
[2023-06-22] MEDS: Pregabalin 100 MG CAP PO ×3 (09:00→20:11)
[2023-06-22] MEDS: Multivitamin TAB 1 TAB PO (09:00)
[2023-06-22] MEDS: Senna TAB 1 TAB PO (09:00)
[2023-06-22] MEDS: Docusate Sodium 100 MG CAP 200 MG PO ×2 (09:05→20:11)
[2023-06-22 09:12] LABS: IgA 544 mg/dL (85-499); IgG 1510 mg/dL (610-1616); IgM 61 mg/dL (35-242)
--- NOTE | 2023-06-22 09:25 | W.PM.PROGNOT ---
Date of Service Date of service: 06/22/23 Time of Service: 10:30 Assessment and Plan Assessment and plan (1) Sacral decubitus ulcer, stage IV: Status: Acute Assessment and plan: 42-year-old woman with severe, debilitating and terminal MS who has significant osteomyelitis around the ischium in association with a chronic decubitus ulcer. She has an undrained abscess in the soft tissue there and probably has some muscle and fascia that will need to be debrided. This level of operation and in particular her anesthesia care requires tertiary?level of care and we continue to await transfer which was arranged prior to the weekend. The IV antibiotics are covering the cultured bugs. She is hemodynamically stable in my opinion with very low?grade tachycardia that appears to be high 90s, low 100 when at rest. Leukopenia is a chronic problem for her. Neurologic deficits and derangements are chronic and secondary to severe MS Overall plan: Transfer when bed available, I will discuss with the medical team about transferring her to their service if she continues to need to stay here at [facility]. Palliative care is going to have a significant role for her in the next few months. Subjective Subjective Interval history since last seen: No events overnight or clinical changes. At the bedside she has no complaints. Wound care and dressing changes per nursing. [facility] has called and are optimistic they will be able to get her transferred later today. Exam Narrative Exam Narrative: General: Nontoxic, baseline?self, appears comfortable, interactive Neuro: Alert and oriented x 3 Psych: Good mood and affect, good insight and understanding into her condition Objective Last Vital Signs Temp 98.1 F 06/22/23 07:34 Pulse 110 H 06/22/23 07:51 Resp 17 06/22/23 07:51 BP 119/67 06/22/23 07:01 Pulse Ox 92 06/22/23 07:51 Laboratory Results - last 24 hr 06/19/23 06/22/23 05:26 05:40 WBC 2.73 L RBC 2.76 L Hgb 7.6 L Hct 25.0 L MCV 91 MCH 27.5 MCHC 30.4 L RDW 18.0 H Plt Count 190 MPV 10.3 Immature Gran % See Differential Neutrophils % 77.0 Band Neutrophils % 8 Lymphocytes % 9.0 Atypical Lymphs % 3 Monocytes % 3.0 Eosinophils % 0.0 Basophils % 0.0 Nucleated RBC % 0.0 Absolute Neutrophils 2.32 Absolute Lymphocytes 0.33 L Absolute Monocytes 0.08 L Absolute Eosinophils 0.00 Absolute Basophils 0.00 RBC Morphology See Below Anisocytosis 1+ ESR 38 H Sodium 141 Potassium 3.5 Chloride 105 Carbon Dioxide 32.6 H Anion Gap 3.4 BUN 5 L Creatinine 0.5 L Est GFR (CKD-EPI 2020) 119.27 Glucose 141 H Calcium 8.1 L C-Reactive Protein 8.02 H IgG 1510 IgA 544 H IgM 61 Hep Bs Antigen Negative Hep Bs Antibody Negative Hep Bs Antibody, Quant <3.1 Hep B Core Total Ab Negative Hepatitis C Antibody Negative HIV 1&2 Ag/Ab, 4th Gen Negative Time Spent with Patient Time Spent with Patient: <25 minutes Time was spent: preparing to see the patient(eg.review tests), counseling the patient and care coordination
[2023-06-22 09:48] LABS: Transferrin 98 mg/dL (201-352)
[2023-06-22] MEDS: Ibuprofen 200 MG TAB 400 MG PO (10:15)
[2023-06-22] MEDS: Miconazole 2% Topical Powder 85 GM BTL (15:06)
--- NOTE | 2023-06-22 20:25 | PGE_ITS ---
Date of Service Date of service: 06/22/23 Time of Service: 17:00 Assessment and Plan Assessment and plan (1) Sacral decubitus ulcer, stage IV: Status: Acute Assessment and plan: 42 yo woman with chronic, complicated medical conditions and physical de- conditioning, completely immobile and bedridden at this point, who has secondary chronic decubitus ulcer wounds and associated osteomyelitis. In truth, the likelihood of these wounds ever healing completely, even with operative intervention is low at best. The goals of operative intervention is primarily source control of any infectious process more than cure. The prognosis is extremely poor that these wounds will ever be gone as long as she remains bedridden to the extent she is. Operative intervention for her involves the high-risk airway that she has. Operative intervention is going to be extremely painful after the procedure in a patient who already lives in pain and might even have hyperalgesia chronically at this point. Woundcare is likely to be very painful and will be necessary on a daily basis. The overall management for her, in my opinion, should be a focus on making her comfortable and palliation. I do not think operative intervention is warranted beyond those goals. Her ongoing management in this hospitalization has been strictly medical thus far and I asked the hospitalist team to take over her management going forward indefinitely, until transfer has been made. We have ensured the antimicrobial coverage is meaningful, she is on a regular diet and having regular bowel function, nursing wound care orders are in place and all of the transfer discussions, networking and paperwork has been completed and signed by the surgery team. The surgical team appreciates the hospitalist team taking over for all further medical management of her until a bed for transfer has been secured. At the time of this transfer of care note, [facility] is calling us with an update every 4 hours. Case discussed directly with Dr. Spicer (SUPPLY CHAIN TECH) who agree to accept further management until transfer going forward. Subjective Subjective Interval history since last seen: Received notice from [facility] that still, no bed available for transfer. I discussed case with hospitalist team about transfer of care which at this point is entirely medical until she is received by the outside hospital. Objective Last Vital Signs Temp 97.2 F L 06/22/23 15:56 Pulse 111 H 06/22/23 19:43 Resp 17 06/22/23 19:43 BP 119/74 06/22/23 18:01 Pulse Ox 94 06/22/23 19:43 Laboratory Results - last 24 hr 06/19/23 06/22/23 05:26 05:40 WBC 2.73 L RBC 2.76 L Hgb 7.6 L Hct 25.0 L MCV 91 MCH 27.5 MCHC 30.4 L RDW 18.0 H Plt Count 190 MPV 10.3 Immature Gran % See Differential Neutrophils % 77.0 Band Neutrophils % 8 Lymphocytes % 9.0 Atypical Lymphs % 3 Monocytes % 3.0 Eosinophils % 0.0 Basophils % 0.0 Nucleated RBC % 0.0 Absolute Neutrophils 2.32 Absolute Lymphocytes 0.33 L Absolute Monocytes 0.08 L Absolute Eosinophils 0.00 Absolute Basophils 0.00 RBC Morphology See Below Anisocytosis 1+ ESR 38 H Sodium 141 Potassium 3.5 Chloride 105 Carbon Dioxide 32.6 H Anion Gap 3.4 BUN 5 L Creatinine 0.5 L Est GFR (CKD-EPI 2020) 119.27 Glucose 141 H Calcium 8.1 L Transferrin 98 L C-Reactive Protein 8.02 H IgG 1510 IgA 544 H IgM 61 Hep Bs Antigen Negative Hep Bs Antibody Negative Hep Bs Antibody, Quant <3.1 Hep B Core Total Ab Negative Hepatitis C Antibody Negative HIV 1&2 Ag/Ab, 4th Gen Negative Time Spent with Patient Time Spent with Patient: <25 minutes Time was spent: referring, communicating with other health morning caregiver and care coordination
[2023-06-22] MEDS: Nystatin CREAM 30 GM TUBE TP (22:00)
[2023-06-22] MEDS: Melatonin 3 MG TAB 9 MG PO (22:37)
[2023-06-22] MEDS: clonazePAM 0.5 MG TAB PO (22:38)
[2023-06-22] MEDS: Miconazole 2% Topical Powder 85 GM BTL TP (22:55)
[2023-06-23] VITALS (46 sets, daily range): BP systolic 100–136; BP diastolic 57–80; PULSE 90–123; RESP 2–26; TEMP 36.2–37.5; O2SAT 2–96
[2023-06-23] MEDS: MEROPENEM 1 GM in Normal Saline 100 ML IVPB ×4 (00:37→23:40)
[2023-06-23] MEDS: Levothyroxine 25 MCG TAB PO (06:02)
[2023-06-23] MEDS: POTASSIUM CHLORIDE/D5-0.45NACL 1,000 ML 50 MEQ IV (06:03)
[2023-06-23] MEDS: Heparin 5,000 UNITS/ML VIAL 5000 UNITS SC ×3 (06:04→22:03)
[2023-06-23 06:54] LABS: Abs Immature Grans 0.01 10^3/uL (0.0-0.06); Absolute Basophil Count 0.01 10^3/uL (0.0-0.2); Absolute Eosinophil Count 0.12 10^3/uL (0.0-0.7); Absolute Lymphocyte Count 0.49 10^3/uL (1.2-3.4); Absolute Monocyte Count 0.17 10^3/uL (0.1-0.8); Absolute Neutrophil Count 2.78 10^3/uL (1.2-6.7); Basophils % 0.3; Eosinophils % 3.4; HCT 26.9 % (36.0-46.0); HGB 8.1 g/dL (11.2-15.7); Immature Grans % 0.3; Lymphocytes % 13.7; MCH 27.3 pg (27.0-33.0); MCHC 30.1 % (32.0-36.0); MCV 91 fL (80-95); MPV 10.6 fL (8.0-11.0); Monocytes % 4.7; Neutrophils % 77.6; Platelet Count 200 10^3/uL (130-400); RBC 2.97 10^6/uL (3.93-5.22); RDW 18.2 % (11.7-14.6); RDW-SD 60.1 fL; WBC 3.58 10^3/uL (4.4-10.8)
[2023-06-23 07:07] LABS: Anion Gap 3.2 mmol/L (3-11); BUN 8 mg/dL (7-18); CO2 29.8 mmol/L (21.0-32.0); CREATININE 0.4 mg/dL (0.55-1.02); Calcium 8.5 mg/dL (8.5-10.1); Chloride 106 mmol/L (98-107); Estimated GFR 125.86 (mL/min/1.73m2); Glucose 118 mg/dL (74-106); Potassium 3.8 mmol/L (3.5-5.1); Sodium 139 mmol/L (136-145)
[2023-06-23 07:10] LABS: ESR 55 mm/hr (0-20)
[2023-06-23 07:17] LABS: C-Reactive Protein 9.33 mg/dL (0.0-0.3)
[2023-06-23] MEDS: Albuterol/Ipratropium 3 ML UPD VIAL UPD ×4 (07:44→19:37)
[2023-06-23] MEDS: Protein Nutritional Supplement 16 GM 1 OUNCE PACKET PO ×2 (08:38→15:52)
[2023-06-23] MEDS: Polyethylene Glycol 3350 17 GM PACKET PO (08:38)
[2023-06-23] MEDS: Aspirin E.C. 81 MG TABEC PO (08:39)
[2023-06-23] MEDS: Senna TAB 1 TAB PO (08:39)
[2023-06-23] MEDS: Calcium Carbonate 1.5 GM TAB PO ×2 (08:39→20:14)
[2023-06-23] MEDS: DULoxetine 30 MG CAP 60 MG PO (08:39)
[2023-06-23] MEDS: Docusate Sodium 100 MG CAP 200 MG PO ×2 (08:39→20:14)
[2023-06-23] MEDS: guaiFENesin 600 MG TABCR PO ×2 (08:39→20:14)
[2023-06-23] MEDS: Multivitamin TAB 1 TAB PO (08:39)
[2023-06-23] MEDS: Pregabalin 100 MG CAP PO ×3 (08:39→20:14)
[2023-06-23] MEDS: Baclofen 10 MG TAB 40 MG PO ×3 (08:39→20:15)
[2023-06-23] MEDS: Miconazole 2% Topical Powder 85 GM BTL TP ×2 (08:40→20:14)
[2023-06-23] MEDS: Nystatin CREAM 30 GM TUBE TP ×3 (08:41→22:34)
--- NOTE | 2023-06-23 10:59 | W.PM.PROGNOT ---
Date of Service Date of service: 06/23/23 Time of Service: 10:59 Assessment and Plan Assessment and plan (1) Severe sepsis: Status: Acute Assessment and plan: -Met criteria for severe sepsis on admission with temperature of 100.4, heart rate greater than 90, and source of infection being a decubitus ulcer stage IV, and osteomyelitis -Surgery was determined at that given the patient being significantly difficult airway that she would be better served to have the debridement procedure performed at [facility] -Of surgery had not indicated in their previous notes, he stated there is a very low likelihood of any procedure being curative and that the patient's prognosis is very low given her end-stage MS and significant contractures -Prior to transition of care from surgery to medicine service, surgery has coordinated transfer to [facility], though they have delayed transfer due to bed availability -Will continue meropenem (2) Sacral decubitus ulcer, stage IV: Status: Acute Assessment and plan: - As noted above (3) Osteomyelitis: Status: Acute Assessment and plan: - As noted above Qualifiers: Osteomyelitis type: chronic, with draining sinus Osteomyelitis location: other site Qualified Code(s): M86.48 - Chronic osteomyelitis with draining sinus, other site (4) 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 She is very understanding of the delay related to her transfer to [facility] for surgical intervention on her sacral wound. Otherwise she has no other complaints or concerns at this time. Exam Narrative Exam Narrative: Chronically ill-appearing younger female who appears older than stated age, ANO x 4, heart regular rhythm, lungs clear to auscultation bilaterally, abdomen soft, nontender, nondistended, significant contractures of upper and lower extremities secondary to end-stage MS Objective Last Vital Signs Temp 97.2 F L 06/23/23 07:25 Pulse 104 H 06/23/23 10:00 Resp 18 06/23/23 10:00 BP 121/74 06/23/23 10:00 Pulse Ox 92 06/23/23 10:00 Laboratory Results - last 24 hr 06/19/23 06/23/23 05:26 05:53 WBC 3.58 L RBC 2.97 L Hgb 8.1 L Hct 26.9 L MCV 91 MCH 27.3 MCHC 30.1 L RDW 18.2 H Plt Count 200 MPV 10.6 Immature Gran % 0.3 Neutrophils % 77.6 Lymphocytes % 13.7 Monocytes % 4.7 Eosinophils % 3.4 Basophils % 0.3 Nucleated RBC % 0.0 Absolute Neutrophils 2.78 Absolute Lymphocytes 0.49 L Absolute Monocytes 0.17 Absolute Eosinophils 0.12 Absolute Basophils 0.01 ESR 55 H Sodium 139 Potassium 3.8 Chloride 106 Carbon Dioxide 29.8 Anion Gap 3.2 BUN 8 Creatinine 0.4 L Est GFR (CKD-EPI 2020) 125.86 Glucose 118 H Calcium 8.5 Transferrin 98 L C-Reactive Protein 9.33 H Time Spent with Patient Time Spent with Patient: >50 minutes Time was spent: preparing to see the patient(eg.review tests), obtaining and/or reviewing separately otained hiistory, ordering medications,tests, procedures, referring, communicating with other health managed care specialist, indepentently interpreting results, counseling the patient and care coordination
--- NOTE | 2023-06-23 13:11 | PDOC.CMPRO ---
Date of service: 06/23/23 Time of Service: 13:11 Care Management Progress Note Progress Note Text Progress Note Text: Still awaiting bed availability for transfer. Dr. Szymanski reports entering Palliative consult. Per RN updates, anticipate Ethel will discharge tomorrow (06/24/22) morning to [facility] via EMS. CM continues to follow.
--- NOTE | 2023-06-23 15:50 | CHAPLAIN ---
Ethel taones to wait for a bed to open up in [place], [place] where she'll have surgry to debried a wound. She's been waiting to transfer since Thursday (06/19) and seems to be very patient, although she said some staff aren't happy I'm here. The staff I've seen interact in Ethel have been very caring. I will continue to visit.
[2023-06-23] MEDS: Ibuprofen 200 MG TAB 400 MG PO (15:52)
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
[2023-06-23] MEDS: HYDROmorphone 2 MG TAB PO ×2 (18:06→22:03)
[2023-06-23] MEDS: Normal Saline Flush 10 ML SYR IVP ×2 (20:15→23:41)
[2023-06-23] MEDS: clonazePAM 0.5 MG TAB PO (22:03)
[2023-06-23] MEDS: Melatonin 3 MG TAB 9 MG PO (22:03)
[2023-06-24] VITALS (16 sets, daily range): BP systolic 100–125; BP diastolic 50–77; PULSE 78–104; RESP 10–20; TEMP 36.1–36.2; O2SAT 92–97
[2023-06-24] MEDS: POTASSIUM CHLORIDE/D5-0.45NACL 1,000 ML 50 MEQ IV (01:12)
[2023-06-24] MEDS: Normal Saline Flush 10 ML SYR IVP (05:28)
[2023-06-24] MEDS: Levothyroxine 25 MCG TAB PO (05:29)
[2023-06-24] MEDS: Heparin 5,000 UNITS/ML VIAL 5000 UNITS SC (05:29)
[2023-06-24] MEDS: Normal Saline 500 ML 30 ML IV (06:08)
--- NOTE | 2023-06-24 06:37 | NUR.NOTE ---
Nursing Note:Confirmed with Sara Braxton that transportation is set up for patient @ 0700 today. Confirmed. Patients DPAYAD Fernandez was contacted by Raven Hamilton to notify her that her mom was being transferred to [facility] - Bed #251.
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
[2023-06-24] MEDS: HYDROmorphone 2 MG TAB PO (07:28)
== END 2023-06-24 07:30 | disposition short-term general hospital (02) | DRG 871 ==
LOC: ER 06-17 03:15 → ICU 06-17 03:22
PROVIDERS: Internal Medicine; Surgery; Admitting Provider Family Medicine; Emergency Provider Student in an Organized Health Care Education/Training Program; PCP Family Medicine; Visit Provider Family Medicine
DX: A41.9 Sepsis, unspecified organism (principal); L89.154 Pressure ulcer of sacral region, stage 4; L89.324 Pressure ulcer of left buttock, stage 4; R65.21 Severe sepsis with septic shock; G82.20 Paraplegia, unspecified; M86.48 Chronic osteomyelitis with draining sinus, other site; L02.818 Cutaneous abscess of other sites; E87.20 Acidosis, unspecified; G35 Multiple sclerosis; R05.9 Cough, unspecified; N31.9 Neuromuscular dysfunction of bladder, unspecified; M62.838 Other muscle spasm; M43.6 Torticollis; J38.6 Stenosis of larynx; D72.810 Lymphocytopenia; N31.8 Other neuromuscular dysfunction of bladder; H57.02 Anisocoria; K59.00 Constipation, unspecified; E03.9 Hypothyroidism, unspecified; R47.1 Dysarthria and anarthria; E11.40 Type 2 diabetes mellitus with diabetic neuropathy, unspecified; G47.33 Obstructive sleep apnea (adult) (pediatric); E11.65 Type 2 diabetes mellitus with hyperglycemia; R33.9 Retention of urine, unspecified; E83.119 Hemochromatosis, unspecified; Z85.810 Personal history of malignant neoplasm of tongue; Z79.01 Long term (current) use of anticoagulants; Z96.0 Presence of urogenital implants; Z79.891 Long term (current) use of opiate analgesic; Z92.3 Personal history of irradiation
CPT/HCPCS: 36569; 123; 36415; 36573; 51702; 71275; 74177; 77001; 80048; 80053; 82784; 82805; 84145; 85652; 86704; 86706; 86803; 87040; 87077; 87340; 87389; 87635; 87641; 93005; 94640; 96365; 96366; 96367; 96368; 96375; 97163; 99223; 99232; 99233; 99291; 00123; 70450; 70490; 71045; 72193; 72195; 81003; 81015; 82270; 82607; 82728; 82746; 83036; 83540; 83550; 83605; 83615; 83735; 84132; 84443; 84466; 84702; 85025; 85045; 86140; 87070; 87075; 87086; 87186; 87205; 93010; 94668; 94760; J1644; J1885; J2020; J2185; J3480; J3490; J7620

== ENCOUNTER 2023-07-07 18:58 | Outpatient (REF) | payer MEDICARE, MEDICAID, SELFPAY ==
[2023-07-07 18:42] LABS: Abs Immature Grans 0.01 10^3/uL (0.0-0.06); Absolute Basophil Count 0.03 10^3/uL (0.0-0.2); HCT 32.5 % (36.0-46.0); HGB 9.6 g/dL (11.2-15.7); MCHC 29.5 % (32.0-36.0); MCV 92 fL (80-95); MPV 11.6 fL (8.0-11.0); Platelet Count 281 10^3/uL (130-400); RBC 3.55 10^6/uL (3.93-5.22); RDW 19.5 % (11.7-14.6); RDW-SD 64.4 fL; WBC 2.62 10^3/uL (4.4-10.8)
[2023-07-07 19:10] LABS: Absolute Eosinophil Count 0.29 10^3/uL (0.0-0.7); Absolute Monocyte Count 0.21 10^3/uL (0.1-0.8); Absolute Neutrophil Count 1.07 10^3/uL (1.2-6.7); Atypical Lymphocytes % 10; Diff Comment Manual Differential; Myelocytes % 1
[2023-07-07 19:11] LABS: Anisocytosis 1+
[2023-07-07 19:18] LABS: ALT 12 U/L (14-59); AST 18 U/L (15-37); Albumin 2.3 g/dL (3.4-5.0); Alkaline Phosphatase 87 U/L (46-116); BUN 2 mg/dL (7-18); Bilirubin, Total 0.2 mg/dL (0.2-1.0); C-Reactive Protein 0.96 mg/dL (0.0-0.3); CREATININE 0.5 mg/dL (0.55-1.02); Calcium 8.8 mg/dL (8.5-10.1); Chloride 102 mmol/L (98-107); Estimated GFR 119.27 (mL/min/1.73m2); Glucose 114 mg/dL (74-106); Potassium 4.2 mmol/L (3.5-5.1); Sodium 138 mmol/L (136-145); Total Protein 7.2 g/dL (6.4-8.2)
== END 2023-07-07 18:59 | disposition home or self-care (01) ==
LOC: LBN 18:58
PROVIDERS: PCP Family Medicine; Visit Provider Nurse Practitioner Adult Health
DX: M86.18 Other acute osteomyelitis, other site (principal); E11.40 Type 2 diabetes mellitus with diabetic neuropathy, unspecified; E83.119 Hemochromatosis, unspecified; E03.9 Hypothyroidism, unspecified; G35 Multiple sclerosis
CPT/HCPCS: 80053; 85025; 86140

== ENCOUNTER 2023-07-09 10:12 | Outpatient (REF) | payer MEDICARE, MEDICAID, SELFPAY ==
[2023-07-09 17:50] LABS: HCT 33.8 % (36.0-46.0); HGB 10.4 g/dL (11.2-15.7); MCH 27.2 pg (27.0-33.0); MCHC 30.8 % (32.0-36.0); MCV 88 fL (80-95); MPV 11.2 fL (8.0-11.0); Platelet Count 223 10^3/uL (130-400); RBC 3.83 10^6/uL (3.93-5.22); RDW 19.3 % (11.7-14.6); RDW-SD 61.9 fL; WBC 3.25 10^3/uL (4.4-10.8)
[2023-07-09 18:06] LABS: ALT 11 U/L (14-59); AST 24 U/L (15-37); Albumin 2.4 g/dL (3.4-5.0); Alkaline Phosphatase 94 U/L (46-116); Anion Gap 6.4 mmol/L (3-11); BUN 4 mg/dL (7-18); Bilirubin, Total 0.2 mg/dL (0.2-1.0); CO2 29.6 mmol/L (21.0-32.0); CREATININE 0.5 mg/dL (0.55-1.02); Calcium 8.4 mg/dL (8.5-10.1); Chloride 100 mmol/L (98-107); Estimated GFR 119.27 (mL/min/1.73m2); Glucose 192 mg/dL (74-106); Potassium 3.7 mmol/L (3.5-5.1); Sodium 136 mmol/L (136-145); Total Protein 7.4 g/dL (6.4-8.2)
== END 2023-07-09 10:13 | disposition home or self-care (01) ==
LOC: LBN 10:12
PROVIDERS: PCP Family Medicine; Visit Provider Nurse Practitioner Adult Health
DX: M86.9 Osteomyelitis, unspecified (principal)
CPT/HCPCS: 80053; 85027

== ENCOUNTER 2023-07-10 12:41 | Inpatient (IN) | payer MEDICARE, MEDICAID, SELFPAY ==
[2023-07-10] VITALS (214 sets, daily range): BP systolic 93–140; BP diastolic 60–94; PULSE 97–128; RESP 6–26; TEMP 36.3–37.2; O2SAT 67–100
--- NOTE | 2023-07-10 12:30 | RT.EKG_ITS ---
APPROVED REPORT Exam: Resting ECG Reason for Exam: tachycardia Patient Location: E HR:101 bpm ECG Measurements Heart Rate 101 AXIS VA 140 P 42 QRSd 71 QRS 20 QT 347 T -8 QTc 451 Conclusion Sinus tachycardia...rate> 99 sinus tach, normal axis, normal intervals, no hypertrophy, non ischemic
--- NOTE | 2023-07-10 13:02 | DI.CT_ITS ---
Exam(s) CT CHEST PE ABD PELVIS W EXAM: CT CHEST PE ABD PELVIS W CLINICAL HISTORY: tachy, hypotense, hypoxic; hx left iliac osteo. TECHNIQUE: Imaging Protocol: Axial CT angiography was performed with multi-slice acquisition and m ulti-planar and/or 3D reconstructions. CONTRAST MATERIAL: Intravenous: Omnipaque 350 Contrast volume:100 ml Oral: None COMPARISON: CT CT PELVIC W from 06/18/2023 CR,XR XR LINE PLACEMENT PICC/CVA from 06/18/2023 FINDINGS: CHEST: PULMONARY ARTERIES: There are no intra-arterial filling defects to suggest the presence of acute pulm onary emboli. LUNGS: There is some infiltrate in both lower lobes. No associated pleural effusions. No ominous pu lmonary nodules. No findings in the trachea and mainstem bronchi.. MEDIASTINUM: There is no hilar nor mediastinal adenopathy. Visualized thyroid unremarkable.Distal tip of the left PICC line is at the junction of the innominate vein and SVC. CARDIAC: Heart size is normal. There is no pericardial effusion. There is no significant shift of t he interventricular septum.Thoracic aorta exhibits normal diameter and no evidence of dissection. OSSEOUS: No significant osseous lesions.No fracture in the chest and thoracic spine evident.. ABDOMEN: There is no ascites. LIVER: There are no focal hepatic lesions nor dilatation of intrahepatic ducts. GALLBLADDER/BILIARY: No obvious gallbladder pathology. CBD is not dilated. PANCREAS: No evidence of pancreatic mass nor dilatation of the pancreatic duct. SPLEEN: Spleen is not enlarged. There are no intrasplenic lesions. Splenic and portal veins are kerr nt. ADRENALS: There are no significant adrenal masses. KIDNEYS:No cysts evident. No calculi nor hydronephrosis. No solid renal masses. ABDOMINAL AORTA: Abdominal aorta is not enlarged. LYMPH NODES: There is no retroperitoneal or para-aortic adenopathy. ABDOMINAL WALL/GI: No evidence of significant anterior abdominal wall hernia. There is abundant feca l material noted in the rectum and rectosigmoid. The sigmoid extends up to the level of the stomach. No obstruction at this level. No colitis pattern seen. No diverticular disease. PELVIS: LYMPH NODES: There is no intrapelvic nor inguinal adenopathy. GI: No evidence of appendicitis.No evidence of sigmoid diverticulitis. URINARY BLADDER: Urinary bladder is collapsed around a Melendez catheter. REPRODUCTIVE: Uterus either very thin or surgically absent. There are no abnormal adnexal masses OSSEOUS: Chronic right hip deformity again noted. Left buttock decubitus ulcer and subjacent abscess and osteomyelitis again noted with significant los s of the left ischial tuberosity again evident. This is along the inferior aspect of the left gluteu s rahul muscle. The left femoral head and neck are intact as is the main acetabulum. IMPRESSION: 1. No evidence of acute pulmonary emboli nor pulmonary infarction. 2. Mild infiltrates in both lower lobes posterior basal segment. No large pleural effusions. 3. Persistent abscess left gluteus regions subjacent to decubitus ulcer with bone last-osteomyelitis of the ischial tuberosity which appears stable when compared to 06/18/2023. Called by myself to ER physician RADIATION DOSE DELIVERED: 1,690.4mGy.cm Total DLP DATA REPOSITORY: All CT scans at this facility are submitted to the National Radiology Data Registry (NRDR) Dose Index Registry (DIR) with the [employer] (ACR). RADIATION OPTIMIZATION: All CT scans at this facility use at least one of these dose optimization te chniques: automated exposure control; mA and/or kV adjustment per patient size (includes targeted exa ms where dose is matched to clinical indication); or iterative reconstruction.
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
[2023-07-10 13:25] LABS: Lactate 0.8 mmol/L (0.6-1.4)
[2023-07-10 13:28] LABS: Abs Immature Grans 0.01 10^3/uL (0.0-0.06); Absolute Basophil Count 0.02 10^3/uL (0.0-0.2); Absolute Eosinophil Count 0.06 10^3/uL (0.0-0.7); Absolute Lymphocyte Count 0.63 10^3/uL (1.2-3.4); Absolute Monocyte Count 0.23 10^3/uL (0.1-0.8); Absolute Neutrophil Count 0.87 10^3/uL (1.2-6.7); Basophils % 1.1; Eosinophils % 3.3; HCT 31.2 % (36.0-46.0); HGB 9.4 g/dL (11.2-15.7); Immature Grans % 0.5; Lymphocytes % 34.6; MCH 26.7 pg (27.0-33.0); MCHC 30.1 % (32.0-36.0); MCV 89 fL (80-95); MPV 11.2 fL (8.0-11.0); Monocytes % 12.6; Neutrophils % 47.9; Platelet Count 184 10^3/uL (130-400); RBC 3.52 10^6/uL (3.93-5.22); RDW 19.8 % (11.7-14.6); RDW-SD 63.7 fL
[2023-07-10 13:33] LABS: WBC 1.82 10^3/uL (4.4-10.8)
[2023-07-10 13:40] LABS: INR 1.5 (0.9-1.1); PTT Activated 34.3 sec (23.6-32.8); Prothrombin Time 14.8 sec (9.1-11.1)
[2023-07-10 13:41] LABS: Diff Comment Diff Reviewed; RBC Morphology Normal
[2023-07-10 13:49] LABS: ALT 8 U/L (14-59); AST 27 U/L (15-37); Albumin 2.1 g/dL (3.4-5.0); Alkaline Phosphatase 73 U/L (46-116); Anion Gap 5.4 mmol/L (3-11); BUN 7 mg/dL (7-18); Bilirubin, Total 0.2 mg/dL (0.2-1.0); CO2 30.6 mmol/L (21.0-32.0); CREATININE 0.6 mg/dL (0.55-1.02); Calcium 8.5 mg/dL (8.5-10.1); Chloride 101 mmol/L (98-107); Estimated GFR 114.15 (mL/min/1.73m2); Glucose 136 mg/dL (74-106); NT-proBNP 120 pg/mL (<300); Potassium 3.7 mmol/L (3.5-5.1); Sodium 137 mmol/L (136-145); Total Protein 7.3 g/dL (6.4-8.2); Troponin I < 50 ng/L (< or =60)
[2023-07-10] MEDS: Normal Saline 1,000 ML 1000 ML IV (13:54)
[2023-07-10] MEDS: MEROPENEM 1 GM in Normal Saline 100 ML IVPB (13:54)
[2023-07-10] MEDS: ACETAMINOPHEN 1,000 MG/100 ML BTL 400 MG IVPB (13:55)
[2023-07-10] MEDS: VANCOMYCIN/WATER (PEG) 1 GM/200 ML BAG IVPB (13:55)
[2023-07-10 13:56] LABS: Procalcitonin 0.9 ng/mL
[2023-07-10 14:07] LABS: Bilirubin Small (Negative); Blood Trace-intact (Negative); Clarity Cloudy (Clear); Glucose Negative (Negative); Ketones Negative (Negative); Leukocyte Esterase Negative (Negative); Nitrite Positive (Negative); Specific Gravity >= 1.030 (1.005-1.025); Urobilinogen 0.2 mg/dL (Up to 0.2); pH 5.5 (5-8)
[2023-07-10 14:26] LABS: Bacteria Moderate HPF (Negative); Casts 3-5 Fine Granular LPF (Negative); Crystals Other HPF (Negative); Epithelial Cells Moderate HPF (Negative); Mucus Heavy (Negative); RBC 0-2 HPF (0-2)
[2023-07-10 14:27] LABS: C & S Indicated? No/Sq. Contamination
[2023-07-10 14:42] LABS: COVID-19 PCR Negative (Negative); Influenza A PCR Negative (Negative); Influenza B PCR Negative (Negative); RSV PCR Negative (Negative)
[2023-07-10 14:43] LABS: Source Nasopharynx
[2023-07-10] MEDS: Normal Saline - Diluent 50 ML VIAL IJ (16:58)
[2023-07-10] MEDS: Omnipaque 350 MG/ML 100 ML BTL IJ (16:59)
--- NOTE | 2023-07-10 18:34 | ED.PROG_ITS ---
Date of service: 07/10/23 Time of Service: 18:35 Medical Decision Making pt's CT shows stable osteo with associated abscess, lung infiltrates and ua is positive for nitrites. Pt's hr still 110, given leukopenia, procalcitonin of 0.9 will discuss with hospitalist about admission Dr. Moreno accepts and requests cefepime be given. Quality:[facility] Health Related Social Needs: No Data to Display Sign Out Sign Out Data: Sign Out Comment: MS patient from care facility; hypotension, tachycardia, fever at facility; relative hypoxia, chronic osteo left iliac; pending CT chest abd pelvis for disposition; hemodynamics improved after fluids and abx; infiltrated contrast right brachial, wrapped, elevated Last updated by Dutch Mora MD at 07/10/23 16:57 Discharge Plan Disposition Patient Disposition: Admit to [facility] Condition: Serious Discharge Details Chief Complaint: GenMedical Clinical Impression: HCAP (healthcare-associated pneumonia), Sepsis Primary Care Provider: Steve Dudley ED Provider: Angus Aguiar [facility] and New Rx's Prescriptions: No Action levothyroxine 25 mcg tablet 25 mcg PO DAILY melatonin 5 mg capsule 10 mg PO HS polyethylene glycol 3350 17 gram/dose powder 17 g PO DAILY psyllium Powder 5 tsp PO Q12H PRN (Reason: Constipation) Rx Instructions: mix into at least 8 oz of water or juice before administering Ensure Liquid 240 ml PO BID AC sennosides [senna] 8.6 mg tablet See Rx Instructions PO DAILY Qty: 30 1RF Rx Instructions: give one tablet Senna once daily scheduled if constipation symptoms persist give 1 tablet twice daily scheduled fentanyl 50 mcg/hr patch 72 hour 1 patch transdermal Q72H MDD 50mcgh/hr Qty: 5 0RF Rx Instructions: dose increase hydromorphone 2 mg tablet 2 mg PO Q6H MDD 16mg Qty: 120 0RF Rx Instructions: scheduled dose of hydromorphone hydromorphone 2 mg tablet 2 mg PO Q6H MDD 16mg PRN (Reason: pain) Qty: 30 0RF Rx Instructions: in addition to scheduled hydromorphone, to allow for q3h PRN dosing as needed; goal to separate dose by 3 hours sodium fluoride-pot nitrate [PreviDent 5000 Enamel Protect] 1.1-5 % paste 1 applic dental QHS Rx Instructions: brush teeth using soft brush for at least 1 min ; rinse mouth thoroughly and spit out baclofen 20 mg tablet 40 mg PO TID Qty: 1 0RF magnesium hydroxide [Milk of Magnesia] 400 MG/5 ML suspension 30 ml PO DAILY PRN docusate sodium 100 mg capsule 200 mg PO BID ibuprofen 200 mg tablet 400 mg PO Q8H PRN PRN (Reason: fever or pain) apixaban 2.5 mg Tablet 2.5 mg PO BID ondansetron HCl 4 mg tablet 4 mg PO Q6H PRN (Reason: Nausea) pregabalin 100 mg Capsule 100 mg PO TID Qty: 0 0RF duloxetine 60 mg capsule,delayed release(DR/EC) 60 mg PO DAILY acetaminophen [Tylenol] 325 MG tablet 650 mg PO Q6H PRN PRN methenamine hippurate [Hiprex] 1 gram Tablet 1 g PO BID polyethylene glycol 3350 [Miralax] 17 gram powder in packet 17 g PO DAILY PRN (Reason: constipation) cetylpyridinium chloride 0.05 % mouthwash 1 ea mucous membrane QID PRN Rx Instructions: Rinse with 7 ml for mouthwash and spit out. Enema 19-7 gram/118 mL enema 118 ml MI DAILY PRN (Reason: constipation) Rx Instructions: Give 1 application rectally if Milk of Magnesia and suppository are ineffective to produce BM multivitamin [Daily Multi-Vitamin] Tablet 1 tab PO DAILY calcium carbonate 600 mg calcium (1,500 mg) Tablet 600 mg PO BID clonazepam 0.5 mg tablet 0.5 mg PO DAILY
[2023-07-10 18:41] LABS: Troponin I < 50 ng/L (< or =60)
[2023-07-10] MEDS: CEFEPIME 2 GM in Normal Saline 100 ML IVPB (18:49)
[2023-07-10] MEDS: Normal Saline 1,000 ML 125 ML IV (18:49)
--- NOTE | 2023-07-10 19:26 | NUR.NOTE ---
1654: GABO tablet technician at bedside requesting placement of PIV b/c they felt uncomfortable perform CTA of chest/abd/pelvis w/ infusion of contrast thru 3Fr power injectable PICC in L brachial. MD Mora updated and aware, at bedside to place 20g PIV in R upper arm via ultrasound d/t severity of spastic contractures and poor vasculature. Pt to CTA shortly afterwards, but imaging unsuccessful d/t RUE PIV infiltrating early in contrast infusion and pt receiving contrast load into subcutaneous tissue instead of intravascular space. Pt returned to ER, where MD Mora at bedside to assess contrast infiltration to RUE w/ this RN. Limb was wrapped in a pressure dressing and elevated per request. No further interventions at this time. Will continue to monitor all systems.
--- NOTE | 2023-07-10 20:41 | HPE_ITS ---
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 Lymphocytes % Monocytes % Eosinophils % Basophils % Nucleated RBC % Absolute Neutrophils Absolute Lymphocytes Absolute Monocytes Absolute Eosinophils Absolute Basophils RBC Morphology PT INR APTT VBG Lactate Sodium Potassium Chloride Carbon Dioxide Anion Gap BUN Creatinine Est GFR (CKD-EPI 2020) Glucose Calcium Total Bilirubin AST ALT Alkaline Phosphatase Troponin I NT-Pro-B Natriuret Pep Total Protein 7.3 Albumin Cancelled 2.1 L Procalcitonin 0.9 Urine Color Dark Yellow Urine Clarity Cloudy Urine pH 5.5 Ur Specific Fiatt >= 1.030 H Urine Protein 100 H Urine Ketones Negative Urine Blood Trace-intact H Urine Nitrite Positive H Urine Bilirubin Small H Urine Urobilinogen 0.2 Ur Leukocyte Esterase Negative Urine RBC 0-2 Urine WBC 5-10 Ur Epithelial Cells Moderate Urine Crystals Other Urine Bacteria Moderate Urine Casts 3-5 Fine Granular Urine Mucus Heavy Ur Culture Indicated? No/Sq. Contamination Urine Glucose Negative COVID-19 Source Nasopharynx SARS-CoV-2 (PCR) Negative Influenza Type A (PCR) Negative Influenza Type B (PCR) Negative RSV (PCR) Negative 07/10/23 18:20 WBC RBC Hgb Hct MCV MCH MCHC RDW Plt Count MPV Immature Gran % Neutrophils % Lymphocytes % Monocytes % Eosinophils % Basophils % Nucleated RBC % Absolute Neutrophils Absolute Lymphocytes Absolute Monocytes Absolute Eosinophils Absolute Basophils RBC Morphology PT INR APTT VBG Lactate Sodium Potassium Chloride Carbon Dioxide Anion Gap BUN Creatinine Est GFR (CKD-EPI 2020) Glucose Calcium Total Bilirubin AST ALT Alkaline Phosphatase Troponin I < 50 NT-Pro-B Natriuret Pep Total Protein Albumin Procalcitonin Urine Color Urine Clarity Urine pH Ur Specific Fiatt Urine Protein Urine Ketones Urine Blood Urine Nitrite Urine Bilirubin Urine Urobilinogen Ur Leukocyte Esterase Urine RBC Urine WBC Ur Epithelial Cells Urine Crystals Urine Bacteria Urine Casts Urine Mucus Ur Culture Indicated? Urine Glucose COVID-19 Source SARS-CoV-2 (PCR) Influenza Type A (PCR) Influenza Type B (PCR) RSV (PCR) Last Vital Signs Temp 37.1 C 07/10/23 19:47 Pulse 120 H 07/10/23 19:47 Resp 17 07/10/23 19:47 BP 127/84 07/10/23 19:47 Pulse Ox 100 07/10/23 19:47 Time Spent Time spent with Patient: >75 minutes Time was spent: preparing to see the patient(eg.review tests), obtaining and/or reviewing separately otained hiistory, ordering medications,tests, procedures, referring, communicating with other health caregiver services home, indepentently interpreting results and care coordination
[2023-07-10 22:33] LABS: TSH (W/Ref FT4) 2.27 uIU/mL (0.36-3.74)
[2023-07-10] MEDS: Baclofen 10 MG TAB 20 MG PO (22:44)
[2023-07-10] MEDS: HYDROmorphone 2 MG TAB PO (22:45)
[2023-07-10] MEDS: Apixaban 2.5 MG TAB PO (22:45)
[2023-07-11] VITALS (11 sets, daily range): BP systolic 94–135; BP diastolic 56–87; PULSE 84–118; RESP 16–19; TEMP 36–38.5; O2SAT 91–100
[2023-07-11] MEDS: Calcium Carbonate 1.5 GM TAB PO ×3 (00:27→20:13)
[2023-07-11 00:32] LABS: Vancomycin, Random 9.7 ug/mL
[2023-07-11] MEDS: ACETAMINOPHEN 1,000 MG/100 ML BTL 400 MG IVPB ×3 (00:53→19:34)
[2023-07-11] MEDS: CEFEPIME 2 GM in Normal Saline 100 ML IVPB ×3 (01:27→17:55)
[2023-07-11] MEDS: Normal Saline Flush 10 ML SYR IVP ×2 (01:30→09:22)
--- NOTE | 2023-07-11 01:56 | NUR.NOTE ---
Nursing Note: 0145 Patient is feeling nauseous and is claiming that you are making me sick. Says no more meds. I offered patient Zofran for nausea and she is refusing. Patient insists no more antibiotics. I will reconfirm with patient shortly to see if she is willing to take Zofran or her Vancomycin.
[2023-07-11] MEDS: VANCOMYCIN/WATER (PEG) 750 MG/150 ML BAG 150 MG IV ×3 (02:41→19:22)
--- NOTE | 2023-07-11 02:52 | NUR.NOTE ---
Nursing Note:0240 Patient nausea has subsided and she agreed to allow for the IV Vancomycin ATT. Antibiotic running.
[2023-07-11] MEDS: Normal Saline 1,000 ML 125 ML IV ×3 (04:55→23:49)
[2023-07-11] MEDS: Levothyroxine 25 MCG TAB PO (05:44)
[2023-07-11 06:13] LABS: HCT 30.1 % (36.0-46.0); HGB 8.9 g/dL (11.2-15.7); MCH 26.6 pg (27.0-33.0); MCHC 29.6 % (32.0-36.0); MCV 90 fL (80-95); MPV 10.9 fL (8.0-11.0); Platelet Count 160 10^3/uL (130-400); RBC 3.34 10^6/uL (3.93-5.22); RDW 19.5 % (11.7-14.6); RDW-SD 64.3 fL
[2023-07-11 06:18] LABS: INR 1.6 (0.9-1.1); Prothrombin Time 15.5 sec (9.1-11.1)
[2023-07-11 06:23] LABS: ALT 8 U/L (14-59); AST 28 U/L (15-37); Albumin 1.9 g/dL (3.4-5.0); Alkaline Phosphatase 63 U/L (46-116); Anion Gap 5.9 mmol/L (3-11); BUN 4 mg/dL (7-18); Bilirubin, Total 0.2 mg/dL (0.2-1.0); CO2 27.1 mmol/L (21.0-32.0); CREATININE 0.5 mg/dL (0.55-1.02); Calcium 7.9 mg/dL (8.5-10.1); Chloride 106 mmol/L (98-107); Estimated GFR 119.27 (mL/min/1.73m2); Glucose 87 mg/dL (74-106); Magnesium 1.6 mg/dL (1.8-2.4); Potassium 3.5 mmol/L (3.5-5.1); Sodium 139 mmol/L (136-145); Total Protein 6.6 g/dL (6.4-8.2)
[2023-07-11] MEDS: Ondansetron 4 MG/2 ML VIAL IVP (09:22)
[2023-07-11] MEDS: DULoxetine 30 MG CAP 60 MG PO (09:23)
[2023-07-11] MEDS: HYDROmorphone 2 MG TAB PO ×4 (09:24→21:33)
[2023-07-11] MEDS: Multivitamin TAB 1 TAB PO (09:24)
[2023-07-11] MEDS: Apixaban 2.5 MG TAB PO ×2 (09:24→20:12)
[2023-07-11] MEDS: Zinc Sulfate 220 MG TAB PO (09:28)
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
--- NOTE | 2023-07-11 09:47 | W.PM.PROGNOT ---
Date of Service Date of service: 07/11/23 Time of Service: 09:52 Assessment and Plan Assessment and plan (1) Sepsis: Start date: 07/10/23 Status: Acute Assessment and plan: -Meets sepsis criteria with leukopenia, tachycardia, and source of infection being combination of chronic osteomyelitis and healthcare associated pneumonia and UTI -Previous wound cultures have been growing out Pseudomonas Mirabella's -Will continue vancomycin and cefepime until new cultures resulted Qualifiers: Sepsis acute organ dysfunction status: without acute organ dysfunction Sepsis type: Pseudomonas Qualified Code(s): A41.52 - Sepsis due to Pseudomonas (2) HCAP (healthcare-associated pneumonia): Start date: 07/10/23 Status: Acute Assessment and plan: - As noted above (3) UTI (urinary tract infection), bacterial: Start date: 07/10/23 Status: Acute Assessment and plan: -UA was positive and urine cultures pending with IV antibiotics continuing which should be adequate for all of possible sources of infection. (4) Osteomyelitis: Status: Chronic Assessment and plan: -Patient will return to chronic antibiotic treatment once cultures or resulted with sensitivities. She did grow Pseudomonas mirabilis which was pansensitive in her previous wound culture. Qualifiers: Osteomyelitis location: other site Osteomyelitis type: chronic, with draining sinus Qualified Code(s): M86.48 - Chronic osteomyelitis with draining sinus, other site (5) Sacral decubitus ulcer, stage IV: Status: Chronic Assessment and plan: Continue wound care daily. (6) Multiple sclerosis: Status: Chronic Assessment and plan: -Advance with patient needing to discuss end-of-life care at this point. -has associated chronic pain on high-dose narcotics including Dilaudid on a scheduled dose and as needed dose and topical fentanyl. -She is high risk with clonazepam low-dose being given with these narcotics but is being monitored closely in a [facility] and supervised living situation. -During this hospital stay we will not change his medical regimen since it appears to be stable. (7) Hypothyroidism: Status: Chronic Assessment and plan: Check TSH and continue outpatient supplement. Qualifiers: Hypothyroidism type: acquired Qualified Code(s): E03.9 - Hypothyroidism, unspecified (8) Obstructive sleep apnea (adult) (pediatric): Status: Chronic Assessment and plan: If patient is on CPAP or BiPAP in the [facility] she should be continued in the hospital. Nursing staff and respiratory therapy will review this in the morning. (9) Hypoprothrombinemia: Status: Chronic Assessment and plan: -Patient PT/INR have been elevated recently and there is no clear explanation for this problem. -She does have a history of hemochromatosis and liver function test. -Normal but further evaluation should be considered. -Patient is on Eliquis low-dose and this will be continued with caution. Her platelet count is normal. She does have chronic anemia which appears stable. Subjective Subjective Interval history since last seen: Patient states that she is nauseous this morning, but feels less tachycardic as compared to admission Exam Narrative Exam Narrative: Chronically ill-appearing female laying in bed, appears older than stated age, in mild distress due to nausea, very soft-spoken, ANO x 4, heart regular rate rhythm, lungs with poor inspiratory effort and diminished in bilateral bases, abdomen distended, but soft without rebound or guarding, patient generally weak with upper and lower extremity severe contractures Objective Last Vital Signs Temp 97.7 F 07/11/23 07:49 Pulse 103 H 07/11/23 07:49 Resp 19 07/11/23 07:49 BP 132/87 07/11/23 07:49 Pulse Ox 92 07/11/23 08:16 Laboratory Results - last 24 hr 07/10/23 07/10/23 07/10/23 13:15 13:15 13:15 WBC 1.82 L* RBC 3.52 L Hgb 9.4 L Hct 31.2 L MCV 89 MCH 26.7 L MCHC 30.1 L RDW 19.8 H Plt Count 184 MPV 11.2 H Immature Gran % 0.5 Neutrophils % 47.9 Lymphocytes % 34.6 Monocytes % 12.6 Eosinophils % 3.3 Basophils % 1.1 Nucleated RBC % 0.0 Absolute Neutrophils 0.87 L Absolute Lymphocytes 0.63 L Absolute Monocytes 0.23 Absolute Eosinophils 0.06 Absolute Basophils 0.02 RBC Morphology Normal PT 14.8 H INR 1.5 H APTT 34.3 H VBG Lactate 0.8 Sodium Cancelled 137 Potassium Cancelled 3.7 Chloride Cancelled Carbon Dioxide Anion Gap BUN Creatinine Est GFR (CKD-EPI 2020) Glucose Calcium Magnesium Total Bilirubin AST ALT Alkaline Phosphatase Troponin I NT-Pro-B Natriuret Pep Total Protein Albumin Procalcitonin TSH Urine Color Urine Clarity Urine pH Ur Specific [place] Urine Protein Urine Ketones Urine Blood Urine Nitrite Urine Bilirubin Urine Urobilinogen Ur Leukocyte Esterase Urine RBC Urine WBC Ur Epithelial Cells Urine Crystals Urine Bacteria Urine Casts Urine Mucus Ur Culture Indicated? Urine Glucose Random Vancomycin COVID-19 Source SARS-CoV-2 (PCR) Influenza Type A (PCR) Influenza Type B (PCR) RSV (PCR) 07/10/23 07/10/23 07/10/23 13:15 13:15 13:15 WBC RBC Hgb Hct MCV MCH MCHC RDW Plt Count MPV Immature Gran % Neutrophils % Lymphocytes % Monocytes % Eosinophils % Basophils % Nucleated RBC % Absolute Neutrophils Absolute Lymphocytes Absolute Monocytes Absolute Eosinophils Absolute Basophils RBC Morphology PT INR APTT VBG Lactate Sodium Potassium Chloride 101 Carbon Dioxide Cancelled 30.6 Anion Gap Cancelled 5.4 BUN Cancelled Creatinine Est GFR (CKD-EPI 2020) Glucose Calcium Magnesium Total Bilirubin AST ALT Alkaline Phosphatase Troponin I NT-Pro-B Natriuret Pep Total Protein Albumin Procalcitonin TSH Urine Color Urine Clarity Urine pH Ur Specific [place] Urine Protein Urine Ketones Urine Blood Urine Nitrite Urine Bilirubin Urine Urobilinogen Ur Leukocyte Esterase Urine RBC Urine WBC Ur Epithelial Cells Urine Crystals Urine Bacteria Urine Casts Urine Mucus Ur Culture Indicated? Urine Glucose Random Vancomycin COVID-19 Source SARS-CoV-2 (PCR) Influenza Type A (PCR) Influenza Type B (PCR) RSV (PCR) 07/10/23 07/10/23 07/10/23 13:15 13:15 13:15 WBC RBC Hgb Hct MCV MCH MCHC RDW Plt Count MPV Immature Gran % Neutrophils % Lymphocytes % Monocytes % Eosinophils % Basophils % Nucleated RBC % Absolute Neutrophils Absolute Lymphocytes Absolute Monocytes Absolute Eosinophils Absolute Basophils RBC Morphology PT INR APTT VBG Lactate Sodium Potassium Chloride Carbon Dioxide Anion Gap BUN 7 Creatinine Cancelled 0.6 Est GFR (CKD-EPI 2020) Cancelled 114.15 Glucose Cancelled Calcium Magnesium Total Bilirubin AST ALT Alkaline Phosphatase Troponin I NT-Pro-B Natriuret Pep Total Protein Albumin Procalcitonin TSH Urine Color Urine Clarity Urine pH Ur Specific [place] Urine Protein Urine Ketones Urine Blood Urine Nitrite Urine Bilirubin Urine Urobilinogen Ur Leukocyte Esterase Urine RBC Urine WBC Ur Epithelial Cells Urine Crystals Urine Bacteria Urine Casts Urine Mucus Ur Culture Indicated? Urine Glucose Random Vancomycin COVID-19 Source SARS-CoV-2 (PCR) Influenza Type A (PCR) Influenza Type B (PCR) RSV (PCR) 07/10/23 07/10/23 07/10/23 13:15 13:15 13:15 WBC RBC Hgb Hct MCV MCH MCHC RDW Plt Count MPV Immature Gran % Neutrophils % Lymphocytes % Monocytes % Eosinophils % Basophils % Nucleated RBC % Absolute Neutrophils Absolute Lymphocytes Absolute Monocytes Absolute Eosinophils Absolute Basophils RBC Morphology PT INR APTT VBG Lactate Sodium Potassium Chloride Carbon Dioxide Anion Gap BUN Creatinine Est GFR (CKD-EPI 2020) Glucose 136 H Calcium Cancelled 8.5 Magnesium Total Bilirubin Cancelled 0.2 AST Cancelled ALT Alkaline Phosphatase Troponin I NT-Pro-B Natriuret Pep Total Protein Albumin Procalcitonin TSH Urine Color Urine Clarity Urine pH Ur Specific [place] Urine Protein Urine Ketones Urine Blood Urine Nitrite Urine Bilirubin Urine Urobilinogen Ur Leukocyte Esterase Urine RBC Urine WBC Ur Epithelial Cells Urine Crystals Urine Bacteria Urine Casts Urine Mucus Ur Culture Indicated? Urine Glucose Random Vancomycin COVID-19 Source SARS-CoV-2 (PCR) Influenza Type A (PCR) Influenza Type B (PCR) RSV (PCR) 07/10/23 07/10/23 07/10/23 13:15 13:15 13:15 WBC RBC Hgb Hct MCV MCH MCHC RDW Plt Count MPV Immature Gran % Neutrophils % Lymphocytes % Monocytes % Eosinophils % Basophils % Nucleated RBC % Absolute Neutrophils Absolute Lymphocytes Absolute Monocytes Absolute Eosinophils Absolute Basophils RBC Morphology PT INR APTT VBG Lactate Sodium Potassium Chloride Carbon Dioxide Anion Gap BUN Creatinine Est GFR (CKD-EPI 2020) Glucose Calcium Magnesium Total Bilirubin AST 27 ALT Cancelled 8 L Alkaline Phosphatase Cancelled 73 Troponin I < 50 NT-Pro-B Natriuret Pep 120 Total Protein Cancelled Albumin Procalcitonin TSH Urine Color Urine Clarity Urine pH Ur Specific [place] Urine Protein Urine Ketones Urine Blood Urine Nitrite Urine Bilirubin Urine Urobilinogen Ur Leukocyte Esterase Urine RBC Urine WBC Ur Epithelial Cells Urine Crystals Urine Bacteria Urine Casts Urine Mucus Ur Culture Indicated? Urine Glucose Random Vancomycin COVID-19 Source SARS-CoV-2 (PCR) Influenza Type A (PCR) Influenza Type B (PCR) RSV (PCR) 07/10/23 07/10/23 07/10/23 13:15 13:15 13:56 WBC RBC Hgb Hct MCV MCH MCHC RDW Plt Count MPV Immature Gran % Neutrophils % Lymphocytes % Monocytes % Eosinophils % Basophils % Nucleated RBC % Absolute Neutrophils Absolute Lymphocytes Absolute Monocytes Absolute Eosinophils Absolute Basophils RBC Morphology PT INR APTT VBG Lactate Sodium Potassium Chloride Carbon Dioxide Anion Gap BUN Creatinine Est GFR (CKD-EPI 2020) Glucose Calcium Magnesium Total Bilirubin AST ALT Alkaline Phosphatase Troponin I NT-Pro-B Natriuret Pep Total Protein 7.3 Albumin Cancelled 2.1 L Procalcitonin 0.9 TSH Urine Color Dark Yellow Urine Clarity Cloudy Urine pH 5.5 Ur Specific [place] >= 1.030 H Urine Protein 100 H Urine Ketones Negative Urine Blood Trace-intact H Urine Nitrite Positive H Urine Bilirubin Small H Urine Urobilinogen 0.2 Ur Leukocyte Esterase Negative Urine RBC 0-2 Urine WBC 5-10 Ur Epithelial Cells Moderate Urine Crystals Other Urine Bacteria Moderate Urine Casts 3-5 Fine Granular Urine Mucus Heavy Ur Culture Indicated? No/Sq. Contamination Urine Glucose Negative Random Vancomycin COVID-19 Source Nasopharynx SARS-CoV-2 (PCR) Negative Influenza Type A (PCR) Negative Influenza Type B (PCR) Negative RSV (PCR) Negative 07/10/23 07/11/23 07/11/23 18:20 00:04 05:59 WBC 1.20 L* RBC 3.34 L Hgb 8.9 L Hct 30.1 L MCV 90 MCH 26.6 L MCHC 29.6 L RDW 19.5 H Plt Count 160 MPV 10.9 Immature Gran % Neutrophils % Lymphocytes % Monocytes % Eosinophils % Basophils % Nucleated RBC % Absolute Neutrophils Absolute Lymphocytes Absolute Monocytes Absolute Eosinophils Absolute Basophils RBC Morphology PT 15.5 H INR 1.6 H APTT VBG Lactate Sodium 139 Potassium 3.5 Chloride 106 Carbon Dioxide 27.1 Anion Gap 5.9 BUN 4 L Creatinine 0.5 L Est GFR (CKD-EPI 2020) 119.27 Glucose 87 Calcium 7.9 L Magnesium 1.6 L Total Bilirubin 0.2 AST 28 ALT 8 L Alkaline Phosphatase 63 Troponin I < 50 NT-Pro-B Natriuret Pep Total Protein 6.6 Albumin 1.9 L Procalcitonin TSH 2.27 Urine Color Urine Clarity Urine pH Ur Specific [place] Urine Protein Urine Ketones Urine Blood Urine Nitrite Urine Bilirubin Urine Urobilinogen Ur Leukocyte Esterase Urine RBC Urine WBC Ur Epithelial Cells Urine Crystals Urine Bacteria Urine Casts Urine Mucus Ur Culture Indicated? Urine Glucose Random Vancomycin 9.7 COVID-19 Source SARS-CoV-2 (PCR) Influenza Type A (PCR) Influenza Type B (PCR) RSV (PCR) 07/11/23 09:00 WBC RBC Hgb Hct MCV MCH MCHC RDW Plt Count MPV Immature Gran % Neutrophils % Lymphocytes % Monocytes % Eosinophils % Basophils % Nucleated RBC % Absolute Neutrophils Absolute Lymphocytes Absolute Monocytes Absolute Eosinophils Absolute Basophils RBC Morphology PT INR APTT VBG Lactate Sodium Potassium Chloride Carbon Dioxide Anion Gap BUN Creatinine Est GFR (CKD-EPI 2020) Glucose Calcium Magnesium Total Bilirubin AST ALT Alkaline Phosphatase Troponin I NT-Pro-B Natriuret Pep Total Protein Albumin Procalcitonin TSH Urine Color Urine Clarity Urine pH Ur Specific [place] Urine Protein Urine Ketones Urine Blood Urine Nitrite Urine Bilirubin Urine Urobilinogen Ur Leukocyte Esterase Urine RBC Urine WBC Ur Epithelial Cells Urine Crystals Urine Bacteria Urine Casts Urine Mucus Ur Culture Indicated? Urine Glucose Random Vancomycin Cancelled COVID-19 Source SARS-CoV-2 (PCR) Influenza Type A (PCR) Influenza Type B (PCR) RSV (PCR) Time Spent with Patient Time Spent with Patient: >50 minutes Time was spent: preparing to see the patient(eg.review tests), obtaining and/or reviewing separately otained hiistory, ordering medications,tests, procedures, referring, communicating with other health critical care nurse, indepentently interpreting results, counseling the patient and care coordination
--- NOTE | 2023-07-11 10:15 | PHA.REVIEW2 ---
Pharmacy Admission Review Admission Clinical Review Admission Pharmacy Review: (Updated 07/11/23 @ 00:24 by Dami Salinas) Sepsis (Acute) HCAP (healthcare-associated pneumonia) (Acute) UTI (urinary tract infection), bacterial (Acute) amoxicillin Allergy (Severe, Verified 06/16/23 22:16) Hives venom-honey bee Allergy (Severe, Verified 06/16/23 22:16) Anaphylaxsis azithromycin [From Zithromax] Allergy (Intermediate, Verified 06/16/23 22:16) hives ciprofloxacin Allergy (Intermediate, Verified 06/16/23 22:16) Hives cod liver oil Allergy (Intermediate, Verified 06/16/23 22:16) Gadolinium-Containing Contrast Medi Allergy (Intermediate, Verified 06/16/23 22:16) Hives latex Allergy (Intermediate, Verified 06/16/23 22:16) Skin Rash lactose Allergy (Mild, Verified 06/16/23 22:16) cortisone Allergy (Verified 06/16/23 22:16) interferon beta-1b [From Betaseron] Allergy (Verified 06/16/23 22:16) methylprednisolone [From Solu-Medrol] Allergy (Verified 06/16/23 22:16) red dye Allergy (Verified 06/16/23 22:16) metformin Adverse Reaction (Intermediate, Verified 06/16/23 22:16) RASH, DIARRHEA gabapentin Adverse Reaction (Mild, Verified 06/16/23 22:16) LE edema Hymenoptera allergen extract Allergy (Uncoded 06/16/23 22:16) Resuscitation Status Full Code Height 5 ft 2 in Weight 65.7 kg Comments Comments/Follow Ups: Flu, Covid, RSV negative, bilateral infiltrates, treating HCAP and UTI empirically with Vanco and Cefepime, meets sepsis criteria, Blood & urine cultures pending, fever overnight. Has PICC line, previously receiving IV Anbx @ [facility] for wound/urine. Pt wheelchair dependent/bed bound, has MS, buttock wound, Hx head/neck cancer. Pharmacy Admission Review Renal Dosing Renal Dosing: BUN 4 mg/dL (7-18) L 07/11/23 05:59 Creatinine 0.5 mg/dL (0.55-1.02) L 07/11/23 05:59 CrCl~129 ml/min Medications needing adjustments: Reviewed (On Cefepime and Vanco, no renal adjustments needed but will monitor) Anticoagulation Anticoagulation: Hgb 8.9 g/dL (11.2-15.7) L 07/11/23 05:59 Hct 30.1 % (36.0-46.0) L 07/11/23 05:59 Plt Count 160 10^3/uL (130-400) 07/11/23 05:59 INR 1.6 (0.9-1.1) H 07/11/23 05:59 Creatinine 0.5 mg/dL (0.55-1.02) L 07/11/23 05:59 Therapeutic Anticoagulation: Reviewed (Apixiban 2.5mg twice daily for Hx DVT, patient's home med, low dose regimen likely due to chronic anemia, Hemoglobin is 8.9 today) Opiate Usage Evaluate Pain Scale/Pains Meds: Reviewed (Palliative care patient, prescribed Hydromorphone scheduled and as needed, Fentanyl patch recently increased to 50mcg Q72hr) Scheduled Bowel Reg ordered if on Opiates?: Yes Relevant Labs Relevant Labs: Sodium 139 mmol/L (136-145) 07/11/23 05:59 Potassium 3.5 mmol/L (3.5-5.1) 07/11/23 05:59 Chloride 106 mmol/L (98-107) 07/11/23 05:59 Magnesium 1.6 mg/dL (1.8-2.4) L 07/11/23 05:59 low Mag will need repleting, watch Potassium, Procal 0.9, lactate 0.8, TSH within range DM Control DM Control: Reviewed (Type-2, no diabetic meds on home list, last A1c: 5.6 ~ 10 months ago) Cardiac Review Cardiac Review: Troponin I < 50 ng/L (< or =60) 07/10/23 18:20 NT-Pro-B Natriuret Pep 120 pg/mL (<300) 07/10/23 13:15 BP, HR, EF%: Reviewed (HR> 100, BP 132/87, on oxygen) IV to PO Switch IV Medications: Reviewed (IV Acetaminophen, Zofran and antibiotics) Pharmacy Antibiotic Review Relevant Labs: Relevant Labs Urine and BC pending 07/10/23 13:15 Procalcitonin 0.9 Pharmacy Antibiotic Activity: Reviewed, no change (Vanco per protocol, day#2) Comments Comments/Follow Ups: Flu, Covid, RSV negative, bilateral infiltrates, treating HCAP and UTI empirically with Vanco and Cefepime, meets sepsis criteria, Blood & urine cultures pending, fever overnight. Has PICC line, previously receiving IV Anbx @ [facility] for wound/urine. Pt wheelchair dependent/bed bound, has MS, buttock wound, Hx head/neck cancer.
[2023-07-11] MEDS: Baclofen 10 MG TAB 20 MG PO ×2 (11:04→20:13)
[2023-07-11] MEDS: diphenhydrAMINE 25 MG CAP PO ×2 (13:37→19:33)
[2023-07-11] MEDS: Nystatin POWDER 60 GM JAR TP ×2 (14:11→20:41)
--- NOTE | 2023-07-11 14:13 | NUR.NOTE ---
Approx 12:30pm red splotchy rash noted on pt's left upper arm, where PICC in placed. notified and Carroll stopped. 25mg benadryl ordered and administered. Approx 1400 rash is lightening in color. Pt was asymptomatic the entire time. Nursing Note:
--- NOTE | 2023-07-11 15:29 | NUR.NOTE ---
Rash spreading to abdomen and legs, IV APAP hung, will monitor.Nursing Note:
[2023-07-11] MEDS: Milk of Magnesia 30 ML CUP PO (17:55)
[2023-07-11] MEDS: Docusate Sodium 100 MG CAP 200 MG PO (20:12)
[2023-07-11] MEDS: Melatonin 3 MG TAB 9 MG PO (22:45)
[2023-07-11] MEDS: clonazePAM 0.5 MG TAB PO (22:45)
[2023-07-11] MEDS: fentaNYL 50 MCG PATCH TD (22:46)
[2023-07-12] VITALS (9 sets, daily range): BP systolic 88–117; BP diastolic 0–81; PULSE 93–110; RESP 16–17; TEMP 36.4–37.2; O2SAT 95–99
[2023-07-12] MEDS: CEFEPIME 2 GM in Normal Saline 100 ML IVPB ×3 (01:37→18:47)
[2023-07-12] MEDS: HYDROmorphone 2 MG TAB PO ×5 (02:08→17:06)
[2023-07-12] MEDS: Ondansetron 4 MG/2 ML VIAL IVP (02:39)
[2023-07-12] MEDS: ACETAMINOPHEN 1,000 MG/100 ML BTL 400 MG IVPB (02:42)
[2023-07-12] MEDS: diphenhydrAMINE 25 MG CAP PO (02:43)
[2023-07-12] MEDS: VANCOMYCIN/WATER (PEG) 750 MG/150 ML BAG 150 MG IV (03:46)
--- NOTE | 2023-07-12 04:05 | WOUNDCONS ---
Date of service: 07/12/23 Time of Service: 04:10 Wound Initial Evaluation Narrative Narrative: Ethel is a 42 year old female patient admitted 07/10/23 for sepsis due to chronic osteomyelitis, bilateral lower lobe pneumonia, and a UTI. Ethel resides at a local nursing with paraplegia secondary to advanced spastic multiple sclerosis. Ethel has a stage 4 decubitus ulcer on the left buttock with subjacent abscess. The left ischial tuberosity with significant bone loss has known osteomyelitis. Blood cultures have been drawn and Ethel is on antibiotics. 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 History and physical report, recent lab-work and allergies were reviewed. Photo consent was obtained and nurse Bobby Hough LPN assisted this telegraphic typewriter installer with positioning the patient for the dressing change. Ethel was given prn Hydromorphone 2mg PO for pain relief. Wound Left ischial tuberosity: Wound Type: Pressure Ulcer Pressure Ulcer Stage: IV Wound General Appearance: Draining Wound Length: 1 cm Wound Width: 1.5 cm Wound Depth: 6 cm Wound Drainage Amount: Moderate Wound Drainage Odor: None/Absent Wound Drainage Description: Sanguineous Photo Photo: Treatment/Dressing Change Cleanse With: Other (Skintegrity wound cleanser ) Dressing Types: Mepilex w/Border and Skin Prep Dressing Comment: This telegraphic typewriter installer was unable to pack wound cavity due to unavailability of packing tape Additional Other Comments: When available, Iodoform tape should be lightly packed into the wound cavity. Nutrition Education Reviewed Nutrition Education: Yes Note: Ethel acknowledged the need for increased protein intake for optimal wound healing. Ethel has a CHO diet ordered and needs total assistance with eating and drinking. Recomendation Recomendation:: Q3 days or as needed cleanse the left ischial tuberosity wound area with wound cleanser, pat dry. Apply skin prep to daphne wound. Lightly pack wound with Iodoform packing (or similar substitute) cover wound with absorbant dressing, and secure with tape. Physcian/Nurse Practioner Notified: Yes
[2023-07-12] MEDS: Levothyroxine 25 MCG TAB PO (06:19)
[2023-07-12 06:24] LABS: HCT 27.2 % (36.0-46.0); HGB 8.1 g/dL (11.2-15.7); MCH 26.7 pg (27.0-33.0); MCHC 29.8 % (32.0-36.0); MCV 90 fL (80-95); MPV 11.5 fL (8.0-11.0); Platelet Count 159 10^3/uL (130-400); RBC 3.03 10^6/uL (3.93-5.22); RDW 19.6 % (11.7-14.6); RDW-SD 65.1 fL; WBC 2.42 10^3/uL (4.4-10.8)
[2023-07-12 06:36] LABS: BUN 4 mg/dL (7-18); CREATININE 0.4 mg/dL (0.55-1.02); Calcium 7.9 mg/dL (8.5-10.1); Chloride 108 mmol/L (98-107); Estimated GFR 125.86 (mL/min/1.73m2); Glucose 73 mg/dL (74-106); Potassium 3.7 mmol/L (3.5-5.1); Sodium 140 mmol/L (136-145)
[2023-07-12 07:02] LABS: Vancomycin, Random 34.7 ug/mL
[2023-07-12] MEDS: Calcium Carbonate 1.5 GM TAB PO ×2 (09:00→19:26)
[2023-07-12] MEDS: Baclofen 10 MG TAB 20 MG PO ×2 (09:00→19:27)
[2023-07-12] MEDS: Senna TAB 1 TAB PO (09:01)
[2023-07-12] MEDS: Apixaban 2.5 MG TAB PO ×2 (09:01→19:28)
[2023-07-12] MEDS: Multivitamin TAB 1 TAB PO (09:01)
[2023-07-12] MEDS: DULoxetine 30 MG CAP 60 MG PO (09:01)
[2023-07-12] MEDS: Zinc Sulfate 220 MG TAB PO (09:01)
[2023-07-12] MEDS: Docusate Sodium 100 MG CAP 200 MG PO ×2 (09:01→19:28)
[2023-07-12] MEDS: Normal Saline Flush 10 ML SYR IVP (09:04)
[2023-07-12] MEDS: Nystatin POWDER 60 GM JAR TP ×2 (09:04→14:32)
[2023-07-12] MEDS: Normal Saline 1,000 ML 125 ML IV (09:11)
[2023-07-12] MEDS: diphenhydrAMINE 25 MG CAP 50 MG PO ×2 (11:29→23:40)
[2023-07-12] MEDS: VANCOMYCIN/WATER (PEG) 1 GM/200 ML BAG IV (11:53)
[2023-07-12] MEDS: Famotidine 20 MG/2 ML VIAL IVP (11:53)
[2023-07-12 12:11] LABS: Bilirubin Negative (Negative); Blood Trace-intact (Negative); Clarity Clear (Clear); Glucose Negative (Negative); Ketones Negative (Negative); Leukocyte Esterase Negative (Negative); Nitrite Negative (Negative); Specific Gravity 1.025 (1.005-1.025); Urobilinogen 0.2 mg/dL (Up to 0.2); pH 5.5 (5-8)
--- NOTE | 2023-07-12 12:11 | W.PM.PROGNOT ---
Date of Service Date of service: 07/12/23 Time of Service: 12:11 Assessment and Plan Assessment and plan (1) Sepsis: Start date: 07/10/23 Status: Acute Assessment and plan: Continue empiric vancomycin/cefepime. I do see her WBC is improving. Sources: Persistent L gluteal abscess associated with a decubitous ulcer and osteomyelitis, present on admission; pneumonia. Her UA on 07/10/23 was not consistent with a UTI, so I do not believe that a UTI was a part of her clinical picture. Blood cultures, urine C&S negative. I have consulted general surgery to try to compose a plan for drainage of the L gluteal abscess - would the patient be a candidate for IR drainage? I have also requested a copy of the [facility] discharge summary. The patient states that she would be willing to have the procedures done. Previous wound cx with proteus, strep anginosus, and other GP marnie, mixed (06/17/2023). Qualifiers: Sepsis type: Pseudomonas Sepsis acute organ dysfunction status: without acute organ dysfunction Qualified Code(s): A41.52 - Sepsis due to Pseudomonas (2) Abscess, gluteal, left: Status: Acute Assessment and plan: As above (3) HCAP (healthcare-associated pneumonia): Start date: 07/10/23 Status: Acute Assessment and plan: As above (4) UTI (urinary tract infection), bacterial: Start date: 07/10/23 Status: Ruled-out (5) Osteomyelitis: Status: Chronic Assessment and plan: I am obtaining a copy of the discharge summary from [facility] to see what the plan for the antibiotics was. Qualifiers: Osteomyelitis type: chronic, with draining sinus Osteomyelitis location: other site Qualified Code(s): M86.48 - Chronic osteomyelitis with draining sinus, other site (6) Sacral decubitus ulcer, stage IV: Status: Chronic Assessment and plan: Continue wound care. I have also consulted general surgery. (7) Multiple sclerosis: Status: Chronic Assessment and plan: -I do not believe that the pain that the patient is describing today is related to MS and, rather, due to her abscess/decubitous wound. Increase fentanyl patch; schedule tylenol. C/s PT, OT, palliative care.. (8) Uncontrolled pain: Status: Acute Assessment and plan: As above Increase fentanyl patch, schedule tylenol. (9) Hypothyroidism: Status: Chronic Assessment and plan: TSH 2.27. Continue levothyroxine. Qualifiers: Hypothyroidism type: acquired Qualified Code(s): E03.9 - Hypothyroidism, unspecified (10) Obstructive sleep apnea (adult) (pediatric): Status: Chronic Assessment and plan: Per RT, the patient does not chronically use a CPAP/BiPAP machine. F/u as outpatient. 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 I do not think this requires further workup. (12) DVT prophylaxis: Status: Acute Assessment and plan: The patient is on apixaban - d/c SCDs. (13) Discharge planning issues: Status: Acute Assessment and plan: Full code C/s palliative care, PT, OT. Discussed with Dr Antonio prior to him having a chance to see the patient or look at the chart. Subjective Subjective Interval history since last seen: Ms Salamanca states that she is not doing so well. She reports that she is having a lot of pain in her bottom. She denies dizziness, CP, SOB. Reports nausea. States her last BM was last night and that she has been regular. Nursing reports that twice now, with her infusions of vancomycin, the patient had a red rash on her arms, hands, elbows, abdomen. This seemed to respond to benadryl. There was no wheezing/SOB reported. I have instructed the nurses on Red Man Syndrome, spoke with pharmacy about premedication with benadryl and pepcid, and slowing down the rate of vancomycin. Exam Narrative Exam Narrative: General: A pleasant middle-aged female who is uncomfortably laying in bed, A&Ox3 HEENT: EOMI, MMM Heart: RRR, mildly tachycardic Lungs: CTAB anteriorly Abdomen: soft, distended, full, nontender Extremities: +2 pitting edema at the feet, RLE contracted at the knee; B hands contracted Objective Last Vital Signs Temp 37.1 C 07/12/23 11:45 Pulse 99 H 07/12/23 11:45 Resp 17 07/12/23 11:45 BP 117/81 07/12/23 11:45 Pulse Ox 96 07/12/23 11:45 Laboratory Results - last 24 hr 07/12/23 05:52 WBC 2.42 L RBC 3.03 L Hgb 8.1 L Hct 27.2 L MCV 90 MCH 26.7 L MCHC 29.8 L RDW 19.6 H Plt Count 159 MPV 11.5 H Sodium 140 Potassium 3.7 Chloride 108 H Carbon Dioxide 25.0 Anion Gap 7.0 BUN 4 L Creatinine 0.4 L Est GFR (CKD-EPI 2020) 125.86 Glucose 73 L Calcium 7.9 L Random Vancomycin 34.7 Time Spent with Patient Time Spent with Patient: 35-49 minutes Time was spent: preparing to see the patient(eg.review tests), obtaining and/or reviewing separately otained hiistory, ordering medications,tests, procedures, referring, communicating with other health health care attorney, indepentently interpreting results, counseling the patient and care coordination
[2023-07-12 12:19] LABS: Bacteria Negative HPF (Negative); C & S Indicated? No; Casts Negative LPF (Negative); Crystals Negative HPF (Negative); Epithelial Cells Rare HPF (Negative); Mucus Negative (Negative); RBC 0-2 HPF (0-2); WBC Negative HPF (0-5)
[2023-07-12] MEDS: fentaNYL 12 MCG PATCH TD (12:28)
[2023-07-12] MEDS: Acetaminophen 500 MG TAB 1000 MG PO ×2 (14:24→19:26)
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
[2023-07-12] MEDS: diphenhydrAMINE 50 MG/ML VIAL IVP (17:53)
[2023-07-12] MEDS: Lidocaine 2% Jelly 11 ML SYR UR (17:54)
[2023-07-12] MEDS: Cetirizine 10 MG TAB 5 MG PO (18:03)
[2023-07-12] MEDS: Melatonin 3 MG TAB 9 MG PO (21:33)
[2023-07-12] MEDS: clonazePAM 0.5 MG TAB PO (21:33)
[2023-07-13] MEDS: CEFEPIME 2 GM in Normal Saline 100 ML IVPB ×3 (02:06→18:01)
[2023-07-13 04:05] VITALS: BP 117/73; PULSE 95; RESP 17; TEMP 36.9; O2SAT 94
[2023-07-13] MEDS: Normal Saline Flush 10 ML SYR IVP ×3 (05:41→20:16)
[2023-07-13] MEDS: Levothyroxine 25 MCG TAB PO (05:59)
[2023-07-13 07:18] LABS: HCT 26.4 % (36.0-46.0); MCH 27.2 pg (27.0-33.0); MCHC 30.3 % (32.0-36.0); MCV 90 fL (80-95); Platelet Count 150 10^3/uL (130-400); RBC 2.94 10^6/uL (3.93-5.22); RDW 19.7 % (11.7-14.6); RDW-SD 64.1 fL; WBC 2.43 10^3/uL (4.4-10.8)
[2023-07-13 07:22] VITALS: BP 135/80; PULSE 100; TEMP 36.9; O2SAT 96
[2023-07-13 07:34] LABS: Anion Gap 6.2 mmol/L (3-11); BUN 3 mg/dL (7-18); CO2 27.8 mmol/L (21.0-32.0); CREATININE 0.4 mg/dL (0.55-1.02); Calcium 8.1 mg/dL (8.5-10.1); Chloride 107 mmol/L (98-107); Estimated GFR 125.86 (mL/min/1.73m2); Glucose 73 mg/dL (74-106); Magnesium 1.6 mg/dL (1.8-2.4); Potassium 3.5 mmol/L (3.5-5.1); Sodium 141 mmol/L (136-145)
[2023-07-13 07:40] LABS: Vancomycin, Random 17.1 ug/mL
[2023-07-13 07:41] LABS: Absolute Eosinophil Count 0.12 10^3/uL (0.0-0.7); Absolute Lymphocyte Count 0.53 10^3/uL (1.2-3.4); Absolute Neutrophil Count 1.68 10^3/uL (1.2-6.7); Atypical Lymphocytes % 2; Bands % 2; Diff Comment Manual Differential; RBC Morphology Normal
[2023-07-13] MEDS: MAGNESIUM SULFATE 2 GM/50 ML BAG IVPB (08:23)
[2023-07-13] MEDS: HYDROmorphone 2 MG TAB PO ×4 (08:23→20:15)
[2023-07-13] MEDS: Acetaminophen 500 MG TAB 1000 MG PO ×3 (08:24→20:15)
[2023-07-13] MEDS: Baclofen 10 MG TAB 20 MG PO ×2 (08:24→20:15)
[2023-07-13] MEDS: DULoxetine 30 MG CAP 60 MG PO (08:24)
[2023-07-13] MEDS: Calcium Carbonate 1.5 GM TAB PO ×2 (08:24→20:15)
[2023-07-13] MEDS: Magnesium Oxide 400 MG TAB PO ×2 (08:24→20:14)
[2023-07-13] MEDS: Zinc Sulfate 220 MG TAB PO (08:25)
[2023-07-13] MEDS: Docusate Sodium 100 MG CAP 200 MG PO ×2 (08:25→20:15)
[2023-07-13] MEDS: Senna TAB 1 TAB PO (08:25)
[2023-07-13] MEDS: Multivitamin TAB 1 TAB PO (08:25)
[2023-07-13] MEDS: Apixaban 2.5 MG TAB PO ×2 (08:29→20:15)
[2023-07-13] MEDS: Polyethylene Glycol 3350 17 GM PACKET PO (08:29)
[2023-07-13] MEDS: Nystatin POWDER 60 GM JAR TP ×3 (08:30→20:16)
[2023-07-13] MEDS: Ondansetron 4 MG/2 ML VIAL IVP (10:58)
[2023-07-13] MEDS: diphenhydrAMINE 25 MG CAP PO (11:34)
[2023-07-13] MEDS: Bisacodyl 5 MG TABEC PO (11:34)
--- NOTE | 2023-07-13 11:53 | IN_ITS ---
PT Notes Visit Reasons: Sepsis, Hospital-acquired pneumonia, UTI, Inpatient Physical Therapy Evaluation Date: 07/13/2023 Referring Doctor: Dami Zavaleta MD PT Orders: PT CONSULT: Limited ability Precautions: Standard. Paraplegic. Total dependence for all transfers, needs mechanical lift for all transfers. Patient Profile/Admitting Diagnosis: Patient is a 42-year-old female resident of [facility] with medical history significant for spastic paraplegia due to MS and S/P partial glossectomy, and chroninc wound on her L iliac crest with chronic osteomyelitis admitted due to low grade fever. Admitted to [facility] for management of Sepsis, HCAP, UTI, and osteomyelitis. Awaiting down back surgery at [facility] for drainage of L gluteal abcess. PMHX: All Active Problems (Updated 07/11/23 @ 00:24 by Dami Salinas) Hypoprothrombinemia (Chronic) Sepsis (Acute) HCAP (healthcare-associated pneumonia) (Acute) Chronic pain (Chronic) Leukopenia (Acute) Sacral decubitus ulcer, stage IV (Chronic) Subglottic stenosis (Acute) Osteomyelitis (Chronic) Critical airway (Acute) Abscess (Acute) Chronic wound (Acute) Constipation (Acute) Lactic acidosis (Acute) Pressure injury of buttock, stage 3 (Acute) Hypothyroidism (Chronic) UTI (urinary tract infection), bacterial (Acute) Advance care planning (Acute) Advance directive discussed with patient (Acute) Decreased activities of daily living (ADL) (Acute) Burning with urination (Acute) Full code status (Chronic) wants aggressive care Lonely (Acute) Dysarthria (Acute) Wheelchair bound (Chronic) requires Christy lift to transfer; cannot stand and pivot [facility] resident (Acute) Palliative care patient (Acute) Pulmonary infiltrates on CXR (Acute) Abdominal pain (Acute) H/O: hysterectomy (Chronic) Spasticity (Acute) Diabetic neuropathy (Acute) Poor intravenous access (Acute) Blood loss anemia (Acute) Abnormal uterine bleeding (Acute) Breakthrough bleeding on Depo-Provera (Acute) SIRS (systemic inflammatory response syndrome) (Acute) Mass of tongue (Acute 06/29/17) Muscle spasticity (Chronic 06/29/14) Neurogenic bladder (Chronic 06/29/14) Neuropathic pain (Acute 06/29/14) Obesity (Acute 06/29/17) Obstructive sleep apnea (adult) (pediatric) (Chronic 06/29/17) Rosacea (Acute 06/29/14) Type 2 diabetes mellitus with hyperglycemia (Chronic 11/06/16) Urinary incontinence (Acute 05/12/17) Urinary retention (Acute 05/12/17) Hemochromatosis (Chronic) Tongue cancer (Acute) PEG tube malfunction (Acute) Disposition (Acute) Oral thrush (Acute) Feeding by G-tube (Acute) Neurogenic bladder (Chronic) Cellulitis and abscess of neck (Acute) 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 Pt uses adult diapers for incontinence. No clots.Catatonia DVT (deep venous thrombosis) Surgical History S/P partial glossectomy History of tracheostomy This was temporary after aspiration when the patient was younger as a complication of her MS S/P percutaneous endoscopic gastrostomy (PEG) tube placement This is now not present have been removed patient able to swallow History of skin graft Patient states that he harvested from tendons and vessels from her right forearm and then took skin graft from her thigh to cover the defect on the right forearm as a treated her squamous cell carcinoma of her tongue with resection. Social History/Home Situation: Patient is a resident of SNF. Total assist with all transfers. Main mode of mobility in facility is through use of motorized wheelchair. Equipment Owned/DME: Motorized wheelchair Subjective: Agreeable to the plan of down and back surgery at [facility]. Nauseated. Nurse Jus aware and managing. Objective: General Observation: Increased trunk lean to the R. R LE in full internal rotation at the hip, fixed at about 80 degree flexion at the hip, 120 degrees flexion at the knee, tibial internal rotation at the knee, and 20 degrees plantarflexion as well as 10 degrees inversion at the ankle Mental Status: A and O x3, speech slightly unintelligible due to previous tongue surgery Pain: L hip at 5/10 when trunk is slowly pushed to midline toward her left side ROM: Right Upper Extremity: Shoulder flexion at 60 degrees. She is able to demonstrate full opening of the hand, although demonstrates significant flexor tone at rest. She also has visible atrophy of the hand intrinsics. Dexterity impaired. Left Upper Extremity: Shoulder flexion at 150 degrees. She is able to demonstrate full opening of the hand, although demonstrates significant flexor tone at rest. She also has visible atrophy of the hand intrinsics. Right Lower Extremity: R LE bent at the hips about 70-80 degrees and in full internal rotation at the hip, fixed at 120 degrees flexion at the knee, tibial internal rotation at the knee, and 20 degrees plantarflexion as well as 10 degrees inversion at the ankle Left Lower Extremity: Hip and knee in neutral position and 45 degrees of plantarflexion. Strength: Right Upper Extremity: Grossly 2-/5 Left Upper Extremity: Grossly 3-/5 Right Lower Extremity: N/A, paraplegia. Left Lower Extremity: N/A, paraplegia Bed Mobility/Transfers: Rolling: moderate assist on either side, can use L UE to assist with rolling to R Supine to sit: Total dependence Bed to chair: Total dependence Gait: N/A. Paraplegic. Wheelchair-bound. Balance: Static Sitting: Unable Dynamic Sitting: Unable Static Standing: Unable Dynamic Standing: Unable Special Tests: Mobility Limitations Standardized Measure [facility] AM-PAC 6 clicks Basic Mobility Inpatient Short Form: Raw Score: 6 CMS Score: 100% deficit Informed Consent/Education: Patient instructed in purpose of PT consult and plan of care. ASSESSMENT: Patient is a 42-year-old female resident of [facility] with medical history significant for spastic paraplegia due to MS and S/P partial glossectomy, and chroninc wound on her L iliac crest with chronic osteomyelitis admitted due to low grade fever. Admitted to [facility] for management of Sepsis, HCAP, UTI, and osteomyelitis. Awaiting down back surgery at [facility] for drainage of L gluteal abcess. She currently demonstrated by the following impairment level findings: 1. Fixed flexion contracture right lower extremity 2. Neurogenic bladder 3. Decreased strength bilateral upper and lower 4. Decreased trunk control 5. Lymphedema of head and neck Impairments are contributing to the following functional limitations: 1. Dependent for transfers 2. Dependent for bed mobility 3. Non-ambulatory 4. Dependent for positioning of lower extremities 5. Impaired wheelchair positioning tolerance due to progressive postural deformities/joint contracture Patient is assessed as High [id number] complexity based on the following: History: Patient is a 42-year-old female resident of SNF with medical history significant for spastic paraplegia due to MS and S/P partial glossectomy admitted on 04/23/2023 due to fever and chronic L-sided hip ulcer. Patient is admitted for management of new diagnoses of UTI, SIRS, and lactic acidosis. Examination: Functional limitations as noted above Presentation: Evolving Decision Makin high complexity Plan of Care/Treatment Plan: 1-2x/day for proper B LE positioning, bed positioning, passive range of motion to B LE and R UE to prevent further contracture formation DISCHARGE RECOMMENDATIONS: Return to SNF when medically cleared. TREATMENT CODE/TIME: 38497 x 23 minutes for 1 unit (11:21-11:45AM). Thank you for the opportunity to participate in the care of this patient. Kitty Ellis PT, DPT, CLT [facility] [place], [place]
--- NOTE | 2023-07-13 12:12 | W.PM.PROGNOT ---
Date of Service Date of service: 07/13/23 Time of Service: 12:12 Assessment and Plan Assessment and plan (1) Sepsis: Status: Acute Assessment and plan: Continue empiric cefepime. MRSA nares is pending, but I did go ahead and d/c vancomycin due to intolerable itching associated with Red Man Syndrome despite use of benadryl and pepcid premedication. Sources: Persistent L gluteal abscess associated with a decubitous ulcer and ischial osteomyelitis, present on admission; pneumonia, which was mild at best on CT 07/10/23, in her bilateral lower lobes. Her UA on 07/10/23 was not consistent with a UTI, so I do not believe that a UTI was a part of her clinical picture. Blood cultures, urine C&S negative. Discussed with Dr Antonio, who feels IR drainage might be appropriate and that alternatively the patient would need to have a myocutaneous rotational flap graft, which would be difficult to heal due to inability to offload all pressure due to the patient's contractures. [facility] discharge summary indicates that the course of treatment there consistent of medical therapy alone; no surgical intervention was done. The patient states that she would be willing to have the procedures done. Previous wound cx with proteus, strep anginosus, and other GP marnie, mixed (06/17/2023). Qualifiers: Sepsis type: Pseudomonas Sepsis acute organ dysfunction status: without acute organ dysfunction Qualified Code(s): A41.52 - Sepsis due to Pseudomonas (2) Abscess, gluteal, left: Status: Chronic Assessment and plan: As above (3) HCAP (healthcare-associated pneumonia): Status: Acute Assessment and plan: As above (4) UTI (urinary tract infection), bacterial: Status: Ruled-out (5) Osteomyelitis: Status: Chronic Assessment and plan: The plan was to continue ceftriaxone + flagyl through 07/22 and follow up with ID (Dr Whiting is available over telephone). Qualifiers: Osteomyelitis type: chronic, with draining sinus Osteomyelitis location: other site Qualified Code(s): M86.48 - Chronic osteomyelitis with draining sinus, other site (6) Sacral decubitus ulcer, stage IV: Status: Chronic Assessment and plan: Continue wound care. I have also consulted general surgery. (7) Multiple sclerosis: Status: Chronic Assessment and plan: PT, OT, speech therapy, and palliative care are consulted. (8) Uncontrolled pain: Status: Acute Assessment and plan: This appears better with scheduled tylenol and increased fentanyl patch. (9) Hypothyroidism: Status: Chronic Assessment and plan: TSH 2.27. Continue levothyroxine. Qualifiers: Hypothyroidism type: acquired Qualified Code(s): E03.9 - Hypothyroidism, unspecified (10) Obstructive sleep apnea (adult) (pediatric): Status: Chronic Assessment and plan: Per RT, the patient does not chronically use a CPAP/BiPAP machine. F/u as outpatient. 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 I do not think this requires further workup. (12) DVT prophylaxis: Status: Acute Assessment and plan: On apixaban (13) Discharge planning issues: Status: Acute Assessment and plan: Full code Palliative care, PT, OT, speech therapy consulted. Anticipate a [id number] transfer to [facility] for L gluteal abscess drainage. They will contact us with time and date. Interim hospital course for [facility]: The patient was admitted to [facility] hospitalist service on 07/10/23 from [facility] due to sepsis in setting of Pneumonia, suspicion for a UTI (now ruled out), osteomyelitis of the L ischium and persistent L gluteal abscess, as per CT chest/abdomen/pelvis 07/10/23. It is important to note that the patient was hospitalized at our facility from 06/17/23 until 06/24/23 for septic shock due to above abscess and osteomyelitis as well as a Proteus and a Klebsiella UTI. At that time, her blood cultures were negative, and wound cultures grew Proteus mirabilis, Strep Anginosus, and mixed gram positive marnie, as well as an anaerobic gram negative osito. She was treated in the ICU with IV meropenem and transferred to [facility] in [place] for a surgical intervention which, as it turned out, she ended up not receiving. Discharge summary from that hospitalization is also being sent. She was discharged from the [facility] with a PICC line on 07/01/23 to complete the course of PO metronidazole and IV ceftriaxone on 07/22/[address] [facility] via a PICC line. When presented to our ER, she was on 2L of O2 by CO on admission, though O2 sats of her presentation were recorded to be 95-100% (a brief episode of recorded hypoxia does not appear to have been real that evening and was likely an erroneous reading). The patient was started on empiric vancomycin/ceftriaxone. With each infusion of vancomycin, she was noted by nursing to develop erythema and itching, c/w Red Man Syndrome. Vancomycin was stopped. From the pulmonary stand point, she is now on RA, doing better. Metronidazole is being reintroduced for a more complete coverage of the abscess. Her blood and urine cultures are negative to date. General surgery was consulted to evaluate the persistent L gluteal abscess which appeared unchanged on CT on 07/10/23 from 06/18/23-06/19/23. IR drainage was proposed, and a consult with [facility] for a [id number] aspiration of the abscess was sought. Speech therapy is consulted due to her dysphagia and dysarthria. She is now on RA. She is medically stable for transfer and/or procedures and agrees to a [id number] transfer to [facility] for IR intervention for her abscess. Subjective Subjective Interval history since last seen: Ms Salamanca continues to report pruritis. Denies dizziness, CP, SOB, reports some nausea. NO vomiting. No abdominal pain. She has been having small BMs, but reports being constantly constipated. We discussed trialing dulcolax to help. The pain is better. Case was discussed with [facility] (Dr Deal), who feels that the patient's left gluteal abscess may, in fact, be amenable to drainage. They are ok with us continuing apixaban for now. They will call us back with scheduling of the procedure. Exam Narrative Exam Narrative: General: A pleasant middle-aged female who is uncomfortably laying in bed, A&Ox3 HEENT: EOMI, MMM, visible excoriations on her neck Heart: RRR, no m/r/g Lungs: CTAB anteriorly Abdomen: soft, distended, full, nontender Extremities: +2 pitting edema at the feet, RLE contracted at the knee; B hands contracted Objective Last Vital Signs Temp 36.9 C 07/13/23 07:22 Pulse 100 H 07/13/23 07:22 Resp 17 07/13/23 04:05 BP 135/80 07/13/23 07:22 Pulse Ox 96 07/13/23 07:22 Laboratory Results - last 24 hr 07/12/23 07/13/23 11:42 05:54 WBC 2.43 L RBC 2.94 L Hgb 8.0 L Hct 26.4 L MCV 90 MCH 27.2 MCHC 30.3 L RDW 19.7 H Plt Count 150 MPV 12.0 H Immature Gran % 0.0 Neutrophils % 67.0 Band Neutrophils % 2 Lymphocytes % 20.0 Atypical Lymphs % 2 Monocytes % 4.0 Eosinophils % 5.0 Basophils % 0.0 Nucleated RBC % 0.0 Absolute Neutrophils 1.68 Absolute Lymphocytes 0.53 L Absolute Monocytes 0.10 Absolute Eosinophils 0.12 Absolute Basophils 0.00 RBC Morphology Normal Sodium 141 Potassium 3.5 Chloride 107 Carbon Dioxide 27.8 Anion Gap 6.2 BUN 3 L Creatinine 0.4 L Est GFR (CKD-EPI 2020) 125.86 Glucose 73 L Calcium 8.1 L Magnesium 1.6 L Urine Color Yellow Urine Clarity Clear Urine pH 5.5 Ur Specific Conger 1.025 Urine Protein Negative Urine Ketones Negative Urine Blood Trace-intact H Urine Nitrite Negative Urine Bilirubin Negative Urine Urobilinogen 0.2 Ur Leukocyte Esterase Negative Urine RBC 0-2 Urine WBC Negative Ur Epithelial Cells Rare Urine Crystals Negative Urine Bacteria Negative Urine Casts Negative Urine Mucus Negative Ur Culture Indicated? No Urine Glucose Negative Random Vancomycin 17.1 Time Spent with Patient Time Spent with Patient: >50 minutes Time was spent: preparing to see the patient(eg.review tests), obtaining and/or reviewing separately otained hiistory, ordering medications,tests, procedures, referring, communicating with other health director of managed care, indepentently interpreting results, counseling the patient and care coordination
[2023-07-13 12:51] LABS: MRSA PCR Negative (Negative)
[2023-07-13] MEDS: Prochlorperazine 10 MG/2 ML VIAL 5 MG IVP (12:52)
[2023-07-13] MEDS: metroNIDAZOLE 500 MG/100 ML BAG 100 MG IVPB ×2 (12:53→20:15)
--- NOTE | 2023-07-13 15:24 | CMPROGNOTE_ITS ---
Date of service: 07/13/23 Time of Service: 15:24 Care Management Progress Note Progress Note Text Progress Note Text: S/O: Ethel was laying in bed when meeting with CM and engaging in conversation. As it was the first time CM and pt met, Ethel shared about her family and shared her youngest daughter Margo will be her HCA rather than guardian Jacy and stated oldest daughter Renuka, Margo herself, and guardian Jacy, all know this plan and are ok with this. Per MD, tomorrow 07/24/23 Ethel will have a down and back appt at [facility] to drain the abscess that makes it hard for the pt to be able to sit. Ethel will transport via EMS coordinated by nursing hematology supervisor. CM and pt discussed when at health and rehab Ethel sits for only two and half hour time periods, so being in bed in the hospital is difficult. CM coordinated with clinical coordinator for more frequent transitions throughout the day after procedure. A: Ethel is a 42 year old female admitted to [facility] 07/10/23 sepsis, hospital- acquired pneumonia, UTI P: Ethel will return to [facility] once medically cleared. Ethel will transport via facility vehicle. She will follow up with her PCP and discharge plan of care. CM will continue to follow. SDOH(Care Management) Screening Will the Patient Participate in the Screening?: Yes Do you worry about having a steady place to live?: no In the past 12 months, have you had to go without electric, gas, oil or water in your home?: no Have you or anyone in your house had to go without enough food to eat?: no Has lack of transportation kept you from medical appointments or from doing things needed for daily living?: no Has anyone in your support network made you feel unsafe for any reason?: choose not to answer
--- NOTE | 2023-07-13 15:33 | PTTR_ITS ---
PT Notes Visit Reasons: Sepsis, Hospital-acquired pneumonia, UTI, Inpatient Physical Therapy Treatment Date: 07/13/2023 Precautions: Standard. Paraplegic. Total dependence for all transfers, needs mechanical lift for all transfers. Subjective: Agreed to doing exercises in L UE using exercise band and to passive range of motion in B LE and R UE. Objective: General Observation: R LE in full internal rotation at the hip, fixed at about 80 degree flexion at the hip, 120 degrees flexion at the knee, tibial internal rotation at the knee, and 20 degrees plantarflexion as well as 10 degrees inversion at the ankle Mental Status: A and O x3, speech slightly unintelligible due to previous tongue surgery Pain: Denied THERA EX: Shoulder flexion, adduction and internal rotation to about 50% of available range of motion against red TB x 10 Shoulder flexion, abduction, and external rotation to about 25% of available range of motion against red TB x 10 Shoulder horizontal adduction against red TB x 10 Shoulder horizontal abduction against red TB x 10 PROM to B LE and L UE x x 5 THERA ACT: Worked with Nurse Luu to in scooting patient up in bed for optimal positioning. Repositioned B UE and LE to maximai good alignment of joints and to prevent further contratcure formation. ASSESSMENT: Proper patient positioning limited because of R LE defomity and paraplegia. Spoke with Nurse systems program manager Joya fields the possibility of providing a pressure-relieving air mattress for patient to minimize further skin breakdown of deep decubitus ulcer on the L gluteal area as patient is currently on a regular mattress. Nurse Luu was updated of conversation with nurse systems program manager. 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 Admitted to [facility] for management of Sepsis, HCAP, UTI, and osteomyelitis. Awaiting down back surgery at [facility] for drainage of L gluteal abcess. Plan of Care/Treatment Plan: 1-2x/day for proper B LE positioning, bed positioning, passive range of motion to B LE and R UE to prevent further contracture formation DISCHARGE RECOMMENDATIONS: Return to SNF when medically cleared. TREATMENT CODE/TIME: 12972 x 10 minutes for 1 unit, 80971 x 17 minutes for 1 unit (15:33-16:00).
--- NOTE | 2023-07-13 16:18 | PT.INNT ---
PT Notes Visit Reasons: Sepsis, Hospital-acquired pneumonia, UTI, Patient with Nurse Jaymie and Nurse Rachna partially lying in bed with feet on the edge. PT came in to potentially help with repositioning patient. Patient was having panic attack and did not know what to do. Nurse Jaymie was able to pacify patient and scooted her up in bed with Nurse Rachna. Patient to be given medication for anxiety and will continue to be observed under ICU level of care. PT provided breathing relaxation exercises for about 3 minutes before leaving patient to rest. Will plan on seeing patient tomorrow morning for continued functional mobility training. Patient was seen from 16:18 through 16:28. NO CHARGE.
--- NOTE | 2023-07-13 16:38 | W.SPSTE ---
Date of service: 07/13/23 Time of Service: 16:00 Subjective Clinical (Bedside) Swallow Evaluation Speech Language Pathology Referred by: Dr. 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 Ethel was admitted on 07/11/23 with L gluteal abscess associated with decubitous ulcer and ischial osteomyeltis; she is scheduled for procedure at [facility] [place] to drain the abscess. She was referred for SENIOR RUBY DEVELOPER eval to assess dysphagia in the setting of current bilateral pneumonia. SENIOR RUBY DEVELOPER IMPRESSIONS & RECOMMENDATIONS: Ethel presents with moderate dysarthria and at least moderate chronic oral pharyngeal dysphagia in the setting of partial glossectomy and post radiation to the lingual region in 2018. Her lingual motion is severely limited anteriorly and laterally. At baseline she is on a finely minced diet, thin liquids, and takes pills crushed (or whole if small) in applesauce or pudding. She denies recent changes to swallow function, weight loss, or difficulty swallowing. Ethel is alert/oriented and demonstrates good insight into swallowing needs and precautions. Notably, oral care is judged to be poor; education provided to patient re: how oral care can be the largest risk factor for developing aspiration-related illness, especially in the setting of severely limited mobility. Ethel was agreeable to recommendation for oral care before/after meals, stating she was familiar with this recommendation from a prior SENIOR RUBY DEVELOPER. Overall, Ethel appears to be tolerating baseline diet without overt s/s aspiration at bedside. She is considered at chronic heightened risk for aspiration in light of aforementioned deficits, and strict aspiration precautions are recommended (please see below). Possibly consider repeat MBSS if there is concern for recurrent hospitalization related to aspiration, though unclear if this is in alignment with goals of care and in the setting of competing medical needs. Last MBSS completed at [facility] in September 2021, with summary as follows: Swallow safety is grossly preserved; swallow efficiency is impaired. Moderate, chronic oropharyngeal dysphagia, characterized by physiologic deficits as outlined below, and resulting in deep penetration of thin liquids with successive drinks, significant liquid and solid residue in what appears to be R vallecular space, cleared effectively with head turn to R+hard swallow and thin liquid wash; less residue noted with initial head turn to R side prior to swallow initiation; suspect dysphagia presentation due to post surgical anatomy/physiology, late effects of RT, progression of MS. Patient appears to be at low-moderate risk for potential aspiration PNA and/or pulmonary compromise and low for malnutrition, low risk for dehydration. FURTHER SENIOR RUBY DEVELOPER SERVICES: Patient to be followed while on unit. Upon Discharge, SENIOR RUBY DEVELOPER needs to be determined Recommendations: ? SOLIDS: 5-Minced & Moist Solids LIQUIDS: 0-Thin Liquids via straw MEDICATIONS: Crushed (or whole if small) in applesauce/pudding RISK MANAGEMENT: HOB upright as tolerated; upright as able for all PO intake. Oral hygiene before/after PO intake using friction with toothbrush on all oral structures as tolerated Level of Assistance/Supervision: 1:1 close supervision and assistive feeding for all PO intake Posture/Positioning Needs: Maintain upright position at least 30 minutes after meals SUBJECTIVE: Patient received alert/awake, agreeable to evaluation Pain Reported? gluteal region Baseline Swallow Function: Patient reports no swallowing issues as long as food is finely minced and moist and she is upright, and meds are given in pudding or applesauce PO Trials Assessed: IDDSI 0 Thin Liquids IDDSI 4 Puree Solid IDDSI 5 Minced and Moist Solid Oral Mechanism Examination: Dentition is WFL; oral hygiene is poor; Oral mucosa is moist/pink Cranial Nerve Assessment: CN V ? Trigeminal Facial Sensation WNL Jaw Strength/ROM WNL ?WFL CN VII- Facial WNL labial ROM, strength, coordination. WNL lingual sensation WNL CN IX ? Glossopharyngeal WNL palatal elevation with phonation. No evidence of nasal emissions WNL CN X ? Vagus WNL Vocal quality and volume. Strong/sharp volitional cough WFL CX XII ? Hypoglossal Impaired strength, Coordination, ROM Impaired Oral Phase Findings: Anterior leakage from mouth Difficulty with bolus manipulation Difficulty with a-p transport Pharyngeal Phase Findings: Reduced hyolaryngeal elevation/excursion 2-3 swallows per sip of liquid, indicating swallow inefficiency ? [place] Swallow Protocol Results: Not tested ASSESSMENT: Further SENIOR RUBY DEVELOPER Services indicated. Patient to be followed while on unit Recommendation at Discharge: to be determined Suggested Referrals: N/A Recommended Procedures: Consider repeat MBSS if MD is concerned with aspiration-related illness being primary cause of recurrent hospitalization. However, as patient has competing medical needs unclear if in alignment with goals of care Education Provided to: Nursing, Patient, Physician Topics Addressed: SENIOR RUBY DEVELOPER findings, recommendations to improve oral care PLAN: Frequency: 1-3x/week for 1-2 weeks Goals: Sales And Service Specialist Goals: Patient will remain free from aspiration-related illness, malnutrition, and dehydration. Short Term Goals: Patient will tolerate L5 Minced Moist Diet and Thin liquids without overt s/s aspiration across 2/2 visits. Patient will tolerate PO trials for consideration of diet upgrade without overt s/s aspiration across 2/2 visits. SENIOR RUBY DEVELOPER CPT Code: 88199 Clinical Swallowing Evaluation TOTAL TIME: 25 Minutes 9087-2845 Coding CPT Codes EVALUATE SWALLOWING FUNCTION - 78013 ([id number]) Additional Codes Date of Service (58290) Date of service: 07/13/23
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
[2023-07-13 19:20] VITALS: BP 109/68; PULSE 107; RESP 20; TEMP 36.5; O2SAT 92
[2023-07-13] MEDS: Melatonin 3 MG TAB 9 MG PO (20:15)
[2023-07-13] MEDS: clonazePAM 0.5 MG TAB PO (20:15)
[2023-07-13 23:14] VITALS: BP 103/62; PULSE 96; RESP 19; TEMP 36.5; O2SAT 93
[2023-07-14 03:13] VITALS: BP 103/67; PULSE 98; RESP 19; TEMP 36.4; O2SAT 92
[2023-07-14] MEDS: CEFEPIME 2 GM in Normal Saline 100 ML IVPB ×3 (03:22→18:34)
[2023-07-14] MEDS: metroNIDAZOLE 500 MG/100 ML BAG 100 MG IVPB ×3 (04:54→20:16)
[2023-07-14] MEDS: Levothyroxine 25 MCG TAB PO (06:00)
[2023-07-14 06:56] LABS: Abs Immature Grans 0.01 10^3/uL (0.0-0.06); Absolute Eosinophil Count 0.16 10^3/uL (0.0-0.7); HCT 27.7 % (36.0-46.0); HGB 8.4 g/dL (11.2-15.7); MCHC 30.3 % (32.0-36.0); MCV 89 fL (80-95); MPV 12.4 fL (8.0-11.0); RBC 3.11 10^6/uL (3.93-5.22); RDW 19.8 % (11.7-14.6); RDW-SD 64.5 fL; WBC 3.22 10^3/uL (4.4-10.8)
[2023-07-14 07:10] LABS: Anion Gap 3.8 mmol/L (3-11); BUN 6 mg/dL (7-18); CO2 30.2 mmol/L (21.0-32.0); CREATININE 0.5 mg/dL (0.55-1.02); Calcium 8.3 mg/dL (8.5-10.1); Chloride 108 mmol/L (98-107); Estimated GFR 119.27 (mL/min/1.73m2); Glucose 86 mg/dL (74-106); Magnesium 2.1 mg/dL (1.8-2.4); Potassium 3.6 mmol/L (3.5-5.1); Sodium 142 mmol/L (136-145)
[2023-07-14 07:44] LABS: Lab Add On Test DONE
[2023-07-14 07:45] VITALS: BP 114/71; PULSE 94; O2SAT 95
[2023-07-14 07:53] LABS: Platelet Count 173 10^3/uL (130-400)
[2023-07-14 07:54] LABS: Absolute Lymphocyte Count 0.52 10^3/uL (1.2-3.4); Absolute Monocyte Count 0.16 10^3/uL (0.1-0.8); Absolute Neutrophil Count 2.35 10^3/uL (1.2-6.7); Atypical Lymphocytes % 2; Bands % 2; Diff Comment Manual Differential; Hypochromasia 2+
[2023-07-14 08:15] LABS: C-Reactive Protein 2.54 mg/dL (<or=0.5)
[2023-07-14 08:42] LABS: Procalcitonin 1.4 ng/mL
[2023-07-14] MEDS: DULoxetine 30 MG CAP 60 MG PO (09:09)
[2023-07-14] MEDS: Calcium Carbonate 1.5 GM TAB PO ×2 (09:09→20:20)
[2023-07-14] MEDS: Multivitamin TAB 1 TAB PO (09:09)
[2023-07-14] MEDS: HYDROmorphone 2 MG TAB PO ×3 (09:09→18:29)
[2023-07-14] MEDS: Acetaminophen 500 MG TAB 1000 MG PO ×2 (09:10→20:18)
[2023-07-14] MEDS: Baclofen 10 MG TAB 20 MG PO ×2 (09:10→20:20)
[2023-07-14] MEDS: Apixaban 2.5 MG TAB PO ×2 (09:10→20:19)
[2023-07-14] MEDS: Senna TAB 1 TAB PO (09:10)
[2023-07-14] MEDS: Magnesium Oxide 400 MG TAB PO ×2 (09:10→20:20)
[2023-07-14] MEDS: Zinc Sulfate 220 MG TAB PO (09:10)
[2023-07-14] MEDS: Docusate Sodium 100 MG CAP 200 MG PO ×2 (09:11→20:18)
[2023-07-14] MEDS: Nystatin POWDER 60 GM JAR TP ×2 (09:12→20:20)
[2023-07-14] MEDS: Normal Saline Flush 10 ML SYR IVP ×2 (09:12→10:43)
[2023-07-14] MEDS: Normal Saline 500 ML 30 ML IV (09:40)
[2023-07-14 10:21] LABS: Absolute Basophil Count 0.03 10^3/uL (0.0-0.2)
[2023-07-14 11:07] VITALS: BP 123/71; PULSE 92; TEMP 37.1; O2SAT 93
--- NOTE | 2023-07-14 11:34 | NUR.NOTE ---
Nursing Note: Patient is ao x 4 and denied discomfort today, but noted feeling nervous about upcoming transfer and procedure. Reassurance was provided as appropriate. Scheduled meds were given this morning with a little applesauce as directed by Dr. Higgins.
--- NOTE | 2023-07-14 12:59 | PTTR_ITS ---
Date of service: 07/14/23 Time of Service: 11:32 PT Notes Visit Reasons: Sepsis,Hospital-acquired pneumonia,UTI,Osteomyelit Inpatient Physical Therapy Treatment Note [facility] Date: 07/14/23 PRECAUTIONS: Fall, standard, activity as tolerated. Paraplegic. Total dependence for all transfers, needs mechanical lift for all transfers. SUBJECTIVE: Patient reports that she will be going [place] [facility] [place] this [place], just want to get it over with. Soft spoken. Expresses that she does not wish to exercise left arm with red theraband today due to IV running, does not want to interfere with IV or overdo it. OBJECTIVE: Supine in bed, agreeable to therapy. R LE in full internal rotation at the hip, fixed at about 80 degree flexion at the hip, 120 degrees flexion at the knee, tibial internal rotation at the knee, and 20 degrees plantarflexion as well as 10 degrees inversion at the ankle? PAIN: no pain reported but when asked if she is comfortable, responds As comfortable as I can be, potentially indicating some discomfort somewhere. Patient declined to elaborate. VITALS: monitored by nursing staff. BED MOBILITY/TRANSFERS? Dependent for all bed mobility and transfers. Manual Therapy ([id number]): PROM to bilateral ankles in all planes, bilateral knees, right hip flexion, extension, abduction. Left femur blocked by right knee, left hip prom into abduction only. PROM to right shoulder flexion, abducti on, internal and external rotation, elbow into flexion and extension, wrist into flexion, extension, lateral and medial deviation, and all finger joints into flexion and extension, MCP joints also into abduction. ASSESSMENT:? Patient tolerates therapy well, each joint seems to loosen and become more mobile with PROM. At end of treatment session, patient is repositioned how she was when this clinician entered, and states that she is as comfortable as she can be. PLAN: Continue mobilizing patient per plan of care until she is medically cleared for discharge. TREATMENT CODE/TIME: 33 minutes beginning at 11:32
--- NOTE | 2023-07-14 14:08 | CMPROGNOTE_ITS ---
Date of service: 07/14/23 Time of Service: 10:30 Care Management Progress Note Progress Note Text Progress Note Text: S/O: Ethel was laying in bed when meeting with CM and engaging in conversation. Ethel described being anxious for the procedure and the level of pain she may be in after. CM kept the conversation light and talked about various things with Ethel from where her girls went to school, to her marriage, past interests and jobs. CM assured will check in after procedure even if following day; Ethel smiled. A: Ethel is a 42 year old female admitted to [facility] 07/10/23 sepsis, hospital- acquired pneumonia, UTI P: Ethel will return to [facility] once medically cleared. Ethel will transport via facility vehicle. She will follow up with her PCP and discharge plan of care. CM will continue to follow. SDOH(Care Management) Screening Will the Patient Participate in the Screening?: Yes Do you worry about having a steady place to live?: no In the past 12 months, have you had to go without electric, gas, oil or water in your home?: no Have you or anyone in your house had to go without enough food to eat?: no Has lack of transportation kept you from medical appointments or from doing things needed for daily living?: no Has anyone in your support network made you feel unsafe for any reason?: choose not to answer
--- NOTE | 2023-07-14 18:23 | W.PM.PROGNOT ---
Date of Service Date of service: 07/14/23 Time of Service: 13:00 Assessment and Plan Assessment and plan (1) Sepsis: Status: Acute Assessment and plan: Continue empiric cefepime + flagyl. Procalcitonin went up. I think that could be because of laps of flagyl, but we need to consider the fact that we had stopped vancomycin as well. Will trend procalcitonin. MRSA nares negative. For IR drainage of the L gluteal abscess. Sources: Persistent L gluteal abscess associated with a decubitous ulcer and ischial osteomyelitis, present on admission; pneumonia, which was mild at best on CT 07/10/23, in her bilateral lower lobes. Her UA on 07/10/23 was not consistent with a UTI, so I do not believe that a UTI was a part of her clinical picture. Blood cultures, urine C&S negative. Per surgery, IR drainage of abscess recommended; alternatively, a myocutaneous rotational flap graft, which would be difficult to heal due to inability to offload all pressure due to the patient's contractures. [facility] discharge summary indicates that the course of treatment there consistent of medical therapy alone; no surgical intervention was done. The patient states that she would be willing to have the procedures done. Previous wound cx with proteus, strep anginosus, and other GP marnie, mixed (06/17/2023). Qualifiers: Sepsis type: Pseudomonas Sepsis acute organ dysfunction status: without acute organ dysfunction Qualified Code(s): A41.52 - Sepsis due to Pseudomonas (2) Abscess, gluteal, left: Status: Chronic Assessment and plan: As above (3) HCAP (healthcare-associated pneumonia): Status: Acute Assessment and plan: As above (4) UTI (urinary tract infection), bacterial: Status: Ruled-out (5) Osteomyelitis: Status: Chronic Assessment and plan: The plan was to continue ceftriaxone + flagyl through 07/22 and follow up with ID (Dr Whiting is available over telephone). We will be consuting ID again. Qualifiers: Osteomyelitis type: chronic, with draining sinus Osteomyelitis location: other site Qualified Code(s): M86.48 - Chronic osteomyelitis with draining sinus, other site (6) Sacral decubitus ulcer, stage IV: Status: Chronic Assessment and plan: Continue wound care. I have also consulted general surgery. (7) Multiple sclerosis: Status: Chronic Assessment and plan: PT, OT, speech therapy, and palliative care are consulted. (8) Uncontrolled pain: Status: Acute Assessment and plan: This appears better with scheduled tylenol and increased fentanyl patch. (9) Hypothyroidism: Status: Chronic Assessment and plan: TSH 2.27. Continue levothyroxine. Qualifiers: Hypothyroidism type: acquired Qualified Code(s): E03.9 - Hypothyroidism, unspecified (10) Obstructive sleep apnea (adult) (pediatric): Status: Chronic Assessment and plan: Per RT, the patient does not chronically use a CPAP/BiPAP machine. F/u as outpatient. 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 I do not think this requires further workup. (12) DVT prophylaxis: Status: Acute Assessment and plan: On apixaban (13) Discharge planning issues: Status: Acute Assessment and plan: Full code Palliative care, PT, OT, speech therapy consulted. Continues to require hospitalization. Subjective Subjective Interval history since last seen: Ms Salamanca states that she is scared. Denies dizziness, CP, SOB, n/v. Exam Narrative Exam Narrative: General: A pleasant middle-aged female who is uncomfortably laying in bed, A&Ox3, appears anxious HEENT: EOMI, MMM Heart: RRR, no m/r/g Lungs: CTAB anteriorly Abdomen: soft, distended, full, nontender Extremities: +2 pitting edema at the feet, RLE contracted at the knee; B hands contracted Objective Last Vital Signs Temp 37.1 C 07/14/23 11:07 Pulse 92 H 07/14/23 11:07 Resp 19 07/14/23 03:13 BP 123/71 07/14/23 11:07 Pulse Ox 93 07/14/23 11:07 Laboratory Results - last 24 hr 07/14/23 07/14/23 07/14/23 05:50 05:55 Unknown WBC 3.22 L RBC 3.11 L Hgb 8.4 L Hct 27.7 L MCV 89 MCH 27.0 MCHC 30.3 L RDW 19.8 H Plt Count 173 MPV 12.4 H Immature Gran % 0.0 Neutrophils % 71.0 Band Neutrophils % 2 Lymphocytes % 14.0 Atypical Lymphs % 2 Monocytes % 5.0 Eosinophils % 5.0 Basophils % 1.0 Nucleated RBC % 0.0 Absolute Neutrophils 2.35 Absolute Lymphocytes 0.52 L Absolute Monocytes 0.16 Absolute Eosinophils 0.16 Absolute Basophils 0.03 RBC Morphology See Below Hypochromasia 2+ Sodium 142 Potassium 3.6 Chloride 108 H Carbon Dioxide 30.2 Anion Gap 3.8 BUN 6 L Creatinine 0.5 L Est GFR (CKD-EPI 2020) 119.27 Glucose 86 Calcium 8.3 L Magnesium 2.1 C-Reactive Protein 2.54 Procalcitonin 1.4 Add-On Test Request DONE Cancelled Time Spent with Patient Time Spent with Patient: 35-49 minutes Time was spent: preparing to see the patient(eg.review tests), obtaining and/or reviewing separately otained hiistory, ordering medications,tests, procedures, referring, communicating with other health animal care giver, indepentently interpreting results, counseling the patient and care coordination
--- NOTE | 2023-07-14 19:19 | NUR.NOTE ---
Nursing Note: Patient returned from [employer] in no distress appearing calm and relaxed but reported pain 8/10. Medication was given as ordered and reported to cook night nurse to reassess.
[2023-07-14 19:30] VITALS: BP 127/82; PULSE 105; RESP 16; TEMP 36.6; O2SAT 97
[2023-07-14] MEDS: fentaNYL 50 MCG PATCH TD (20:17)
[2023-07-14] MEDS: Melatonin 3 MG TAB 9 MG PO (20:19)
[2023-07-14] MEDS: clonazePAM 0.5 MG TAB PO (20:20)
[2023-07-14 23:20] VITALS: BP 110/71; PULSE 89; RESP 16; TEMP 36.7; O2SAT 94
[2023-07-15] MEDS: Normal Saline Flush 10 ML SYR IVP ×5 (03:25→17:47)
[2023-07-15] MEDS: CEFEPIME 2 GM in Normal Saline 100 ML IVPB ×3 (03:26→17:16)
[2023-07-15 03:36] VITALS: BP 116/75; PULSE 109; RESP 16; TEMP 36.7; O2SAT 95
[2023-07-15] MEDS: metroNIDAZOLE 500 MG/100 ML BAG 100 MG IVPB ×3 (04:25→20:43)
[2023-07-15] MEDS: Levothyroxine 25 MCG TAB PO (05:47)
[2023-07-15 06:53] LABS: Abs Immature Grans 0.01 10^3/uL (0.0-0.06); Absolute Basophil Count 0.01 10^3/uL (0.0-0.2); Absolute Eosinophil Count 0.16 10^3/uL (0.0-0.7); Absolute Lymphocyte Count 0.49 10^3/uL (1.2-3.4); Absolute Monocyte Count 0.14 10^3/uL (0.1-0.8); Absolute Neutrophil Count 1.65 10^3/uL (1.2-6.7); Basophils % 0.4; Eosinophils % 6.5; HCT 26.4 % (36.0-46.0); HGB 7.8 g/dL (11.2-15.7); Immature Grans % 0.4; Lymphocytes % 19.9; MCH 26.3 pg (27.0-33.0); MCHC 29.5 % (32.0-36.0); MCV 89 fL (80-95); MPV 10.5 fL (8.0-11.0); Monocytes % 5.7; Neutrophils % 67.1; Platelet Count 149 10^3/uL (130-400); RBC 2.97 10^6/uL (3.93-5.22); RDW-SD 65.7 fL; WBC 2.46 10^3/uL (4.4-10.8)
[2023-07-15 07:28] LABS: Anion Gap 12.2 mmol/L (3-11); BUN 7 mg/dL (7-18); C-Reactive Protein 2.13 mg/dL (<or=0.5); CO2 22.8 mmol/L (21.0-32.0); CREATININE 0.5 mg/dL (0.55-1.02); Calcium 7.9 mg/dL (8.5-10.1); Chloride 107 mmol/L (98-107); Estimated GFR 119.27 (mL/min/1.73m2); Glucose 69 mg/dL (74-106); Magnesium 1.9 mg/dL (1.8-2.4); Potassium 3.5 mmol/L (3.5-5.1); Sodium 142 mmol/L (136-145)
[2023-07-15] MEDS: Polyethylene Glycol 3350 17 GM PACKET PO (07:50)
[2023-07-15] MEDS: Calcium Carbonate 1.5 GM TAB PO ×2 (07:51→20:42)
[2023-07-15] MEDS: DULoxetine 30 MG CAP 60 MG PO (07:51)
[2023-07-15] MEDS: HYDROmorphone 2 MG TAB PO ×4 (07:51→20:41)
[2023-07-15] MEDS: Multivitamin TAB 1 TAB PO (07:52)
[2023-07-15] MEDS: Baclofen 10 MG TAB 20 MG PO ×2 (07:52→20:41)
[2023-07-15] MEDS: Zinc Sulfate 220 MG TAB PO (07:52)
[2023-07-15] MEDS: Apixaban 2.5 MG TAB PO ×2 (07:52→20:42)
[2023-07-15] MEDS: Magnesium Oxide 400 MG TAB PO ×2 (07:52→20:41)
[2023-07-15] MEDS: Acetaminophen 500 MG TAB 1000 MG PO ×3 (07:52→20:41)
[2023-07-15] MEDS: Nystatin POWDER 60 GM JAR TP ×3 (09:12→20:42)
[2023-07-15 09:27] VITALS: BP 116/75; PULSE 104; RESP 17; TEMP 36.9; O2SAT 95
--- NOTE | 2023-07-15 10:57 | NUR.NOTE ---
Pt c/o nausea, cold washcloth to the forehead and back of neck helped, declined any nausea meds.Nursing Note:
--- NOTE | 2023-07-15 12:02 | PT.INNT ---
Date of service: 07/15/23 Time of Service: 11:07 PT Notes Visit Reasons: Sepsis,Hospital-acquired pneumonia,UTI,Osteomyelit Patient refuses therapy this morning due to nausea, reportedly from dressing change. Patient states that she feels extremely unwell and does not wish to move at this time. Agreeable to therapy in the afternoon.
[2023-07-15] MEDS: Ondansetron 4 MG/2 ML VIAL IVP (12:22)
--- NOTE | 2023-07-15 12:32 | NUR.NOTE ---
Pt with small amt clear emesis, IV zofran given with good effect Nursing Note:
[2023-07-15] MEDS: fentaNYL 12 MCG PATCH TD (12:46)
--- NOTE | 2023-07-15 15:27 | CMPROGNOTE_ITS ---
Care Management Progress Note Progress Note Text Progress Note Text: S/O: Ethel was laying in bed when meeting with CM and described feeling sick today; vomiting and nauseous. Pt said the trip to [facility] was long and bumpy and hours of waiting periods seemed long. Ethel described feeling tired today and wanting to sleep but not being able to because the nausea. Ethel stated she just wants to go home, but knows she can't until she is feeling better. CM kept the encounter short to allow pt to rest, stating will check back in tomorrow. A: Ethel is a 42 year old female admitted to [facility] 07/10/23 sepsis, hospital- acquired pneumonia, UTI P: Ethel will return to [facility] once medically cleared. Ethel will transport via facility vehicle. She will follow up with her PCP and discharge plan of care. CM will continue to follow. SDOH(Care Management) Screening Will the Patient Participate in the Screening?: Yes Do you worry about having a steady place to live?: no In the past 12 months, have you had to go without electric, gas, oil or water in your home?: no Have you or anyone in your house had to go without enough food to eat?: no Has lack of transportation kept you from medical appointments or from doing things needed for daily living?: no Has anyone in your support network made you feel unsafe for any reason?: choose not to answer
--- NOTE | 2023-07-15 15:58 | PT.INTREAT ---
Date of service: 07/15/23 Time of Service: 14:19 PT Notes Visit Reasons: Sepsis,Hospital-acquired pneumonia,UTI,Osteomyelit Inpatient Physical Therapy Treatment Note [facility] Date: 07/15/23 PRECAUTIONS: Fall, standard, activity as tolerated. SUBJECTIVE: Patient reports feeling much better, has not vomitted, still slightly nauseous but much less so. Reports that remaining nausea is due largely to not being able to get rid of the taste in her mouth despite brushing her teeth, mouthwash. Requests mint or nadja tea to assist. RN Ethel notified. OBJECTIVE: ? R LE in full internal rotation at the hip, fixed at about 80 degree flexion at the hip, 120 degrees flexion at the knee, tibial internal rotation at the knee, and 20 degrees plantarflexion as well as 10 degrees inversion at the ankle. Agreeable to therapy. ? PAIN: Reports intermittent pain in right wrist since yesterday, expresses doubt that the pain was due to yesterday's PROM. VITALS: monitored by nursing staff. Manual therapy ([id number]): PROM to bilateral ankles in all planes, bilateral knees, right hip flexion, extension, abduction. Left knee into flexion, left hip prom into abduction only. PROM to right shoulder flexion, abduction, internal and external rotation, elbow into flexion and extension, wrist into gentle flexion limited by pain, and all finger joints into flexion and extension. ASSESSMENT:? Patient tolerates therapy well. Right knee extends to ~80 degrees today, right elbow extends to 110 degrees. PLAN: Continue PROM per plan of care to patient tolerance until patient is medically cleared for discharge. TREATMENT CODE/TIME: 24 minutes beginning at 14:19
[2023-07-15 16:10] VITALS: BP 126/84; PULSE 97; RESP 18; TEMP 36.7; O2SAT 95
--- NOTE | 2023-07-15 16:49 | PDOC.STREC ---
Date of service: 07/15/23 Time of Service: 12:00 Speech Therapy Recommendations Report ST Recommendations: Attempting to contact patient during lunch meal but she was experiencing nausea & vomiting, not able to take any PO at that time. Per RN, she ate only a small portion of breakfast and tolerated it well. Patient denies any new swallowing difficulties and feels she is at baseline function. Will check in with nursing tomorrow and continue to monitor need for further services. Coding
--- NOTE | 2023-07-15 17:12 | NUR.NOTE ---
Mother called, update given as she is on HIPPA form. Nursing Note:
[2023-07-15] MEDS: Ondansetron O.D.T. 4 MG TABEF PO (19:26)
--- NOTE | 2023-07-15 19:33 | W.PM.PROGNOT ---
Date of Service Date of service: 07/15/23 Time of Service: 19:34 Assessment and Plan Assessment and plan (1) Sepsis: Status: Acute Assessment and plan: Sources: Persistent L gluteal abscess associated with a decubitous ulcer and ischial osteomyelitis, present on admission; pneumonia, which was mild at best on CT 07/10/23, in her bilateral lower lobes. Her UA on 07/10/23 was not consistent with a UTI, so I do not believe that a UTI was a part of her clinical picture. Blood cultures, urine C&S negative. Continue empiric cefepime + flagyl. s/p drain of L gluteal abscess by [facility] 07/14/23. MRSA nares negative. We will attempt to find out if the abscess was cultured. May still require a myocutaneous rotational flap graft, which would be difficult to heal due to inability to offload all pressure due to the patient's contractures. We are looking into a specialty bed. [facility] discharge summary indicates that the course of treatment there consistent of medical therapy alone; no surgical intervention was done. The patient states that she would be willing to have the procedures done. Previous wound cx with proteus, strep anginosus, and other GP marnie, mixed (06/17/2023). Qualifiers: Sepsis type: Pseudomonas Sepsis acute organ dysfunction status: without acute organ dysfunction Qualified Code(s): A41.52 - Sepsis due to Pseudomonas (2) Abscess, gluteal, left: Status: Chronic Assessment and plan: As above (3) HCAP (healthcare-associated pneumonia): Status: Acute Assessment and plan: As above (4) UTI (urinary tract infection), bacterial: Status: Ruled-out (5) Osteomyelitis: Status: Chronic Assessment and plan: The plan was to continue ceftriaxone + flagyl through 07/22 and follow up with ID ([facility]'s Dr Whiting is available over telephone). We will be consuting ID again; hopefully with abscess culture results. Qualifiers: Osteomyelitis type: chronic, with draining sinus Osteomyelitis location: other site Qualified Code(s): M86.48 - Chronic osteomyelitis with draining sinus, other site (6) Sacral decubitus ulcer, stage IV: Status: Chronic Assessment and plan: Continue wound care. I have also consulted general surgery. Wound care recommendations entered. (7) Multiple sclerosis: Status: Chronic Assessment and plan: PT, OT, speech therapy, and palliative care are consulted. ?Depression component as well. Consider an antidepressant. (8) Uncontrolled pain: Status: Acute Assessment and plan: This appears better with scheduled tylenol and increased fentanyl patch. (9) Hypothyroidism: Status: Chronic Assessment and plan: TSH 2.27. Continue levothyroxine. Qualifiers: Hypothyroidism type: acquired Qualified Code(s): E03.9 - Hypothyroidism, unspecified (10) Obstructive sleep apnea (adult) (pediatric): Status: Chronic Assessment and plan: Per RT, the patient does not chronically use a CPAP/BiPAP machine. F/u as outpatient. 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 I do not think this requires further workup. (12) DVT prophylaxis: Status: Acute Assessment and plan: On apixaban (13) Discharge planning issues: Status: Acute Assessment and plan: Full code Palliative care, PT, OT, speech therapy consulted. Continues to require hospitalization. Subjective Subjective Interval history since last seen: Ethel is s/p L gluteal abscess drainage yesterday. She said the ambulance ride was long and bumpy and it was a long process. Her pain is controlled now. She is nauseated. Her last BM was this morning. Denies dizziness, CP, SOB. She reports not being able to sleep last night. She just wants to get some rest. Exam Narrative Exam Narrative: General: A pleasant middle-aged female who is uncomfortably laying in bed, A&Ox3, tearful HEENT: EOMI, MMM Heart: RRR, no m/r/g Lungs: CTAB anteriorly Abdomen: soft, distended, full, nontender; posterior drain with serosanguenous fluid visible Extremities: +2 pitting edema at the feet, RLE contracted at the knee; B hands contracted Objective Last Vital Signs Temp 36.7 C 07/15/23 16:10 Pulse 97 H 07/15/23 16:10 Resp 18 07/15/23 16:10 BP 126/84 07/15/23 16:10 Pulse Ox 95 07/15/23 16:10 Laboratory Results - last 24 hr 07/15/23 05:50 WBC 2.46 L RBC 2.97 L Hgb 7.8 L Hct 26.4 L MCV 89 MCH 26.3 L MCHC 29.5 L RDW 20.0 H Plt Count 149 MPV 10.5 Immature Gran % 0.4 Neutrophils % 67.1 Lymphocytes % 19.9 Monocytes % 5.7 Eosinophils % 6.5 Basophils % 0.4 Nucleated RBC % 0.0 Absolute Neutrophils 1.65 Absolute Lymphocytes 0.49 L Absolute Monocytes 0.14 Absolute Eosinophils 0.16 Absolute Basophils 0.01 Sodium 142 Potassium 3.5 Chloride 107 Carbon Dioxide 22.8 Anion Gap 12.2 H BUN 7 Creatinine 0.5 L Est GFR (CKD-EPI 2020) 119.27 Glucose 69 L Calcium 7.9 L Magnesium 1.9 C-Reactive Protein 2.13 H Time Spent with Patient Time Spent with Patient: 25-34 minutes Time was spent: preparing to see the patient(eg.review tests), obtaining and/or reviewing separately otained hiistory, ordering medications,tests, procedures, referring, communicating with other health critical care registered nurse, indepentently interpreting results, counseling the patient and care coordination
[2023-07-15 20:39] VITALS: BP 124/75; PULSE 103; RESP 18; TEMP 36.9; O2SAT 94
[2023-07-15] MEDS: clonazePAM 0.5 MG TAB PO (20:41)
[2023-07-15] MEDS: Melatonin 3 MG TAB 9 MG PO (20:42)
[2023-07-15] MEDS: Zolpidem 6.25 MG TABCR PO (21:01)
--- NOTE | 2023-07-16 | DI.RAD_ITS ---
Exam(s) XR PORTABLE CHEST AP EXAM: XR PORTABLE CHEST AP CLINICAL HISTORY: follow up pneumonia. TECHNIQUE: 2D digital imaging was performed. COMPARISON: CR,XR XR LINE PLACEMENT PICC/CVA from 06/18/2023 FINDINGS: Single AP portable view. The distal tip of the PICC line is presently at the junction of the innominate vein and SVC. Heart size unchanged in the mediastinum is not widened. Lungs are presently clear and there are no obvious pleural effusions. No pulmonary edema. Surgical clips are again noted in the right-side of the neck. IMPRESSION: No acute pulmonary findings on this single AP portable view of the chest. PICC line distal tip is at the junction of the innominate vein and SVC, approximately 2 cm pulled juli k relative to position on the 06/18/2023 image. DATA REPOSITORY: RADIATION DOSE DELIVERED:
[2023-07-16] MEDS: CEFEPIME 2 GM in Normal Saline 100 ML IVPB ×3 (01:25→18:14)
[2023-07-16 03:04] VITALS: BP 113/74; PULSE 92; RESP 16; TEMP 36.3; O2SAT 96
[2023-07-16] MEDS: metroNIDAZOLE 500 MG/100 ML BAG 100 MG IVPB ×3 (03:06→20:48)
[2023-07-16] MEDS: Levothyroxine 25 MCG TAB PO (05:30)
[2023-07-16 06:52] LABS: Abs Immature Grans 0.01 10^3/uL (0.0-0.06); HCT 26.8 % (36.0-46.0); MCH 26.7 pg (27.0-33.0); MCHC 29.9 % (32.0-36.0); MCV 89 fL (80-95); MPV 11.1 fL (8.0-11.0); Neutrophils % 58.6; Platelet Count 172 10^3/uL (130-400); RDW 19.7 % (11.7-14.6); RDW-SD 64.8 fL; WBC 2.27 10^3/uL (4.4-10.8)
[2023-07-16 07:15] VITALS: BP 104/65; PULSE 99; RESP 17; TEMP 36.7; O2SAT 98
[2023-07-16 07:19] LABS: Absolute Basophil Count 0.05 10^3/uL (0.0-0.2); Absolute Eosinophil Count 0.23 10^3/uL (0.0-0.7); Absolute Monocyte Count 0.16 10^3/uL (0.1-0.8); Absolute Neutrophil Count 2.67 10^3/uL (1.2-6.7); Atypical Lymphocytes % 3; Bands % 59; Diff Comment Manual Differential
[2023-07-16 07:20] LABS: Hypochromasia 2+
[2023-07-16 07:36] LABS: Procalcitonin 1.4 ng/mL
[2023-07-16 08:35] LABS: Anion Gap 12.8 mmol/L (3-11); BUN 7 mg/dL (7-18); C-Reactive Protein 2.21 mg/dL (<or=0.5); CO2 22.2 mmol/L (21.0-32.0); CREATININE 0.4 mg/dL (0.55-1.02); Chloride 107 mmol/L (98-107); Estimated GFR 125.86 (mL/min/1.73m2); Glucose 73 mg/dL (74-106); Magnesium 1.9 mg/dL (1.8-2.4); Potassium 3.5 mmol/L (3.5-5.1); Sodium 142 mmol/L (136-145)
[2023-07-16] MEDS: DULoxetine 30 MG CAP 60 MG PO (08:35)
[2023-07-16] MEDS: Calcium Carbonate 1.5 GM TAB PO ×2 (08:38→20:47)
[2023-07-16] MEDS: Zinc Sulfate 220 MG TAB PO (08:38)
[2023-07-16] MEDS: Acetaminophen 500 MG TAB 1000 MG PO ×3 (08:39→20:47)
[2023-07-16] MEDS: Baclofen 10 MG TAB 20 MG PO ×2 (08:40→20:47)
[2023-07-16] MEDS: HYDROmorphone 2 MG TAB PO ×4 (08:41→20:47)
[2023-07-16] MEDS: Multivitamin TAB 1 TAB PO (08:42)
[2023-07-16] MEDS: Apixaban 2.5 MG TAB PO ×2 (08:42→20:47)
[2023-07-16] MEDS: Magnesium Oxide 400 MG TAB PO ×2 (08:42→20:47)
[2023-07-16] MEDS: Nystatin POWDER 60 GM JAR TP ×3 (08:45→20:49)
[2023-07-16] MEDS: Normal Saline Flush 10 ML SYR IVP ×3 (08:45→20:49)
[2023-07-16 09:14] LABS: Bilirubin Negative (Negative); Blood Trace-intact (Negative); Clarity Clear (Clear); Glucose Negative (Negative); Ketones >=160 mg/dL (Negative); Leukocyte Esterase Negative (Negative); Nitrite Negative (Negative); Specific Gravity >= 1.030 (1.005-1.025); Urobilinogen 0.2 mg/dL (Up to 0.2)
[2023-07-16 09:43] LABS: WBC 0-2 HPF (0-5)
[2023-07-16 09:44] LABS: Bacteria Negative HPF (Negative); Crystals Negative HPF (Negative); Epithelial Cells Rare HPF (Negative); Mucus Heavy (Negative); Other Cells Negative (Negative)
[2023-07-16 09:47] LABS: C & S Indicated? No
[2023-07-16] MEDS: Normal Saline 500 ML 30 ML IV (10:15)
[2023-07-16 11:43] VITALS: BP 115/70; PULSE 88; RESP 18; TEMP 36.8; O2SAT 98
--- NOTE | 2023-07-16 11:47 | OTIE_ITS ---
Occupational Therapy Notes Inpatient Occupational Therapy Evaluation Date: 07/16/23 Referring Doctor: Dr. Higgins OT Orders/Precautions: Non Urgent, Fall, Standard, Full PATIENT PROFILE/ADMITTING DIAGNOSIS: Pt is a 42 year old female who presented to the ED and was admitted to Med[facility] surg with a dx of management of Sepsis, HCAP, UTI, and osteomyelitis. Await[place] [facility] [place] of L gluteal abcess Past Medical History: All Active Problems (Updated 07/11/23 @ 00:24 by Dami Salinas) Hypoprothrombinemia (Chronic) Sepsis (Acute) HCAP (healthcare-associated pneumonia) (Acute) Chronic pain (Chronic) Leukopenia (Acute) Sacral decubitus ulcer, stage IV (Chronic) Subglottic stenosis (Acute) Osteomyelitis (Chronic) Critical airway (Acute) Abscess (Acute) Chronic wound (Acute) Constipation (Acute) Lactic acidosis (Acute) Pressure injury of buttock, stage 3 (Acute) Hypothyroidism (Chronic) UTI (urinary tract infection), bacterial (Acute) Advance care planning (Acute) Advance directive discussed with patient (Acute) Decreased activities of daily living (ADL) (Acute) Burning with urination (Acute) Full code status (Chronic) wants aggressive careLonely (Acute) Dysarthria (Acute) Wheelchair bound (Chronic) requires Christy lift to transfer; cannot stand and pivotNursing home resident (Acute) Palliative care patient (Acute) Pulmonary infiltrates on CXR (Acute) Abdominal pain (Acute) H/O: hysterectomy (Chronic) Spasticity (Acute) Diabetic neuropathy (Acute) Poor intravenous access (Acute) Blood loss anemia (Acute) Abnormal uterine bleeding (Acute) Breakthrough bleeding on Depo-Provera (Acute) SIRS (systemic inflammatory response syndrome) (Acute) Mass of tongue (Acute 06/29/17) Muscle spasticity (Chronic 06/29/14) Neurogenic bladder (Chronic 06/29/14) Neuropathic pain (Acute 06/29/14) Obesity (Acute 06/29/17) Obstructive sleep apnea (adult) (pediatric) (Chronic 06/29/17) Rosacea (Acute 06/29/14) Type 2 diabetes mellitus with hyperglycemia (Chronic 11/06/16) Urinary incontinence (Acute 05/12/17) Urinary retention (Acute 05/12/17) Hemochromatosis (Chronic) Tongue cancer (Acute) PEG tube malfunction (Acute) Disposition (Acute) Oral thrush (Acute) Feeding by G-tube (Acute) Neurogenic bladder (Chronic) Cellulitis and abscess of neck (Acute) 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 Pt uses adult diapers for incontinence. No clots.Catatonia DVT (deep venous thrombosis) Surgical History S/P partial glossectomy History of tracheostomy This was temporary after aspiration when the patient was younger as a complication of her JESSY/P percutaneous endoscopic gastrostomy (PEG) tube placement This is now not present have been removed patient able to swallowHistory of skin graft Patient states that he harvested from tendons and vessels from her right forearm and then took skin graft from her thigh to cover the defect on the right forearm as a treated her squamous cell carcinoma of her tongue with resection. Social History/Home Situation: Pt resides at SNF, she states that she is able to eat (I) and wash her upper body (I) but that she is max (A) for most of her other ADLs. Equipment owned/DME: DME needs met by SNF SUBJECTIVE: Pt states that she is receiving (A) with her ADLs at [facility]. She notes that she is more concerned that she is unable to hold her tablet now and would like help with this. OBJECTIVE: General Observation: Pleasant, IV in (R) UE, telemetry in place, forward head , rounded shoulders Mental Status: A&Ox4 Pain: 2-3/10 ROM: RUE limited shoulder flexion and elbow ROM, decreased extension of (R) digits to 90* actively, able to flex digits and then requires max (A) into full extension. (R) wrist stays flexed at 90* L UE limited shoulder flexion and elbow ROM STRENGTH: RUE 3-/5 LUE 4/5 FUNCTIONAL MOBILITY/ADLS: BATHING Baseline she states she is Bathing UE (I) UE Bathing LE Max (A) LE EATING pt requires (A) with opening a closing containers but is able to feed herself (I) with use of (L) UE. BALANCE: Static sitting Fair-Good Dynamic Sitting Fair-good SPECIAL TESTS: Daily Activity Limitations Standardized Measure [facility] AM -PAC ?6 clicks? Daily Activity Inpatient Short Form: Raw score: 12 Standardized score: 30.60 CMS score: 66.57% INFORMED CONSENT/EDUCATION: Pt instructed in purpose of OT Consult and plan of care. ASSESSMENT: Patient is a 42-year-old female referred to occupational therapy services with diagnosis of management of Sepsis, HCAP, UTI, and osteomyelitis. Awaiting down [place] [facility] [place] of L gluteal abcess. Patient presents with clinical signs and symptoms consistent with dx, as demonstrated by the following impairment level findings/functional limitations: Impairments in ADL/IADL and leisure activities, decreased (B) UE ROM chronic, non ambulatory without wheelchair, decreased functional activit tolerance, ulcer on buttock, requires (A) at her baseline level of function for her ADL/IADL Routines. AMPAC score 12 Patient is assessed as a Moderate [id number] complexity based on the following: History: see above Examination: see functional functional limitations as noted above Presentation: evolving Decision Making: AMPAC score 12 GOALS Goals x1 week 1. Therapeutic Exercise- pt will be (I) And compliant with HEP with ideal technique PLAN OF CARE/TREATMENT PLAN: 1x/day, 3-5 days/ week x 1week Initiate Occupational Therapy Services for bathing, dressing, grooming, toileting, eating, transfer training. DISCHARGE RECOMMENDATIONS Return to SNF when medically cleared per MD. TREATMENT TIME/MINUTES/CODES 38561, 15 minutes [facility] [place], [place]
--- NOTE | 2023-07-16 12:53 | PT.INTREAT ---
Date of service: 07/16/23 Time of Service: 11:12 PT Notes Visit Reasons: Sepsis,Hospital-acquired pneumonia,UTI,Osteomyelit Inpatient Physical Therapy Treatment Note [facility] Date: 07/16/23 PRECAUTIONS: Fall, standard, activity as tolerated. SUBJECTIVE: Patient reports feeling better this morning than yesterday morning. Reports less nausea. Does report frustration at still being here, wishes to go home, does not know when she will get to go home. States that this mattress sucks, she feels that she sticks to it, it makes her sweat, she feels itchy all over, her room is too hot which could be worsening her MS symptoms. This clinician locates the thermostat and reduces the temperature from 75 degrees to 70, per patient request. OBJECTIVE: Supine in bed, 2 pillows under left leg, one pillow between right leg and left, one pillow under right lower leg, ankle, and foot. ? PAIN: Reports pain, sensitivity over ventral wrist VITALS: monitored by nursing staff. BED MOBILITY/TRANSFERS? Rolling L/R: not assessed Supine-sit: not assessed ? Sit-supine: not assessed ? Sit-stand: not assessed ? Stand-sit: not assessed ? Bed-Chair: not assessed ? Chair-bed: not assessed anual therapy ([id number]): PROM to bilateral ankles in all planes, bilateral knees into flexion and extension, right hip flexion, extension, abduction. Left hip prom into abduction, flexion. PROM to right shoulder flexion, abduction, internal and external rotation, elbow into flexion and extension, wrist limited by pain. ASSESSMENT:? Patient tolerates therapy well. Right knee extends to ~80 degrees today, right elbow extends to 110 degrees, right shoulder external rotation to ~60 degrees. PLAN: Continue PROM per plan of care to patient tolerance until patient is medically cleared for discharge. Patient to be seen once per day, per instruction from ROCIO Ellis. TREATMENT CODE/TIME: 34 minutes beginning at 11:12
--- NOTE | 2023-07-16 14:23 | STREC_ITS ---
Date of service: 07/16/23 Time of Service: 14:15 Speech Therapy Recommendations Report ST Recommendations: ARTILLERY OR NAVAL GUN[employer] OBSERVER followed up with patient who denies swallowing difficulty and states she has been tolerating diet (minced/moist solids, thin liquids) as per baseline. Nu rsing denies any concerns. ARTILLERY OR [employer]AL GUNFI[employer] OBSERVER will continue to follow on monitor status, however no direct intervention indicated at this time.
--- NOTE | 2023-07-16 14:23 | PDOC.STREC ---
Date of service: 07/16/23 Time of Service: 14:15 Speech Therapy Recommendations Report ST Recommendations: MAIN LINE ASSEMBLER followed up with patient who denies swallowing difficulty and states she has been tolerating diet (minced/moist solids, thin liquids) as per baseline. Nursing denies any concerns. MAIN LINE ASSEMBLER will continue to follow on monitor status, however no direct intervention indicated at this time.
--- NOTE | 2023-07-16 15:35 | PDOC.CMPRO ---
Date of service: 07/16/23 Time of Service: 15:36 Care Management Progress Note Progress Note Text Progress Note Text: S/O: Ethel was laying in bed when meeting with CM. 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 Ethel shared concern being @ [facility] still today will make her miss her shower day tomorrow @ [employer] and did say there is an [employer]OUNT MANAGER [employer] at [facility] that offered to put her hair back up for her after her cap wash. A: Ethel is a 42 year old female admitted to [facility] 07/10/23 sepsis, hospital-acquired pneumonia, UTI P: Ethel will return to [facility] once medically cleared. Ethel will transport via facility vehicle. She will follow up with her PCP and discharge plan of care. CM will continue to follow. SDOH(Care Management) Screening Will the Patient Participate in the Screening?: Yes Do you worry about having a steady place to live?: no In the past 12 months, have you had to go without electric, gas, oil or water in your home?: no Have you or anyone in your house had to go without enough food to eat?: no Has lack of transportation kept you from medical appointments or from doing things needed for daily living?: no Has anyone in your support network made you feel unsafe for any reason?: choose not to answer
[2023-07-16 16:25] VITALS: BP 117/74; PULSE 96; RESP 18; TEMP 36.9; O2SAT 95
--- NOTE | 2023-07-16 20:40 | PGE_ITS ---
Date of Service Date of service: 07/16/23 Time of Service: 20:41 Assessment and Plan Assessment and plan (1) Sepsis: Status: Acute Assessment and plan: Sources: Persistent L gluteal abscess associated with a decubitous ulcer and ischial osteomyelitis, present on admission; pneumonia, which was mild at best on CT 07/10/23, in her bilateral lower lobes. Her UA on 07/10/23 was not consistent with a UTI, so I do not believe that a UTI was a part of her clinical picture. Blood cultures, urine C&S negative. Continue empiric cefepime + flagyl. s/p drain of L gluteal abscess by [facility] 07/14/23. MRSA nares negative. Culture results won't be back until Thursday, per [facility]. May still require a myocutaneous rotational flap graft, which would be difficult to heal due to inability to offload all pressure due to the patient's contractures. We are looking into a specialty bed. Bloodwork not showing improvement. Consider ID consult. [facility] discharge summary indicates that the course of treatment there consistent of medical therapy alone; no surgical intervention was done. The patient states that she would be willing to have the procedures done. Previous wound cx with proteus, strep anginosus, and other GP marnie, mixed (06/17/2023). Qualifiers: Sepsis type: Pseudomonas Sepsis acute organ dysfunction status: without acute organ dysfunction Qualified Code(s): A41.52 - Sepsis due to Pseudomonas (2) Abscess, gluteal, left: Status: Chronic Assessment and plan: As above (3) Nausea: Status: Acute Assessment and plan: Trial phenergan. Add a PPI. On a bowel regimen. (4) HCAP (healthcare-associated pneumonia): Status: Acute Assessment and plan: As above (5) UTI (urinary tract infection), bacterial: Status: Ruled-out (6) Osteomyelitis: Status: Chronic Assessment and plan: The plan was to continue ceftriaxone + flagyl through 07/22 and follow up with ID ([facility]'s Dr Whiting is available over telephone). We will be consuting ID again; hopefully with abscess culture results. Qualifiers: Osteomyelitis type: chronic, with draining sinus Osteomyelitis location: other site Qualified Code(s): M86.48 - Chronic osteomyelitis with draining sinus, other site (7) Sacral decubitus ulcer, stage IV: Status: Chronic Assessment and plan: Continue wound care. I have also consulted general surgery. Wound care recommendations entered. (8) Multiple sclerosis: Status: Chronic Assessment and plan: PT, OT, speech therapy, and palliative care are consulted. ?Depression component as well. Consider an antidepressant. (9) Uncontrolled pain: Status: Acute Assessment and plan: This appears better with scheduled tylenol and increased fentanyl patch. (10) Hypothyroidism: Status: Chronic Assessment and plan: TSH 2.27. Continue levothyroxine. Qualifiers: Hypothyroidism type: acquired Qualified Code(s): E03.9 - Hypothyroidism, unspecified (11) Obstructive sleep apnea (adult) (pediatric): Status: Chronic Assessment and plan: Per RT, the patient does not chronically use a CPAP/BiPAP machine. F/u as outpatient. 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 I do not think this requires further workup. (13) DVT prophylaxis: Status: Acute Assessment and plan: On apixaban (14) Discharge planning issues: Status: Acute Assessment and plan: Full code Palliative care, PT, OT, speech therapy consulted. Continues to require hospitalization. Subjective Subjective Interval history since last seen: Ethel is nauseated and complains about the taste of antibiotics in her mouth. Her bottom is throbbing. We talked about how we have ordered a special mattress for her to see if it would make a difference. She is tired of antibiotics, but does not want to give up. [place] dizzy yesterday but not today. No CP, SOB, abdominal pain. Nausea and pain are her two biggest complaints today. We discussed how I was concerned that her bloodwork had not improved and that we would seek ID help once we had the culture results from the drainage procedure. These will not be available until Thursday. Exam Narrative Exam Narrative: General: A pleasant middle-aged female who is uncomfortably laying in bed, A&Ox3 HEENT: EOMI, MMM Heart: RRR, no m/r/g Lungs: CTAB anteriorly Abdomen: soft, distended, full, nontender; posterior drain with serosanguenous fluid visible Extremities: +2 pitting edema at the feet, RLE contracted at the knee; B hands contracted Objective Last Vital Signs Temp 36.9 C 07/16/23 16:25 Pulse 96 H 07/16/23 16:25 Resp 18 07/16/23 16:25 BP 117/74 07/16/23 16:25 Pulse Ox 95 07/16/23 16:25 Laboratory Results - last 24 hr 07/16/23 07/16/23 05:43 08:50 WBC 2.27 L RBC 3.00 L Hgb 8.0 L Hct 26.8 L MCV 89 MCH 26.7 L MCHC 29.9 L RDW 19.7 H Plt Count 172 MPV 11.1 H Immature Gran % See Differential Neutrophils % 58.6 Band Neutrophils % 59 Lymphocytes % 19.0 Atypical Lymphs % 3 Monocytes % 7.0 Eosinophils % 10.0 Basophils % 2.0 Nucleated RBC % 0.0 Absolute Neutrophils 2.67 Absolute Lymphocytes 0.50 L Absolute Monocytes 0.16 Absolute Eosinophils 0.23 Absolute Basophils 0.05 RBC Morphology See Below Hypochromasia 2+ Sodium 142 Potassium 3.5 Chloride 107 Carbon Dioxide 22.2 Anion Gap 12.8 H BUN 7 Creatinine 0.4 L Est GFR (CKD-EPI 2020) 125.86 Glucose 73 L Calcium 8.0 L Magnesium 1.9 C-Reactive Protein 2.21 H Procalcitonin 1.4 Urine Color Yellow Urine Clarity Clear Urine pH 6.0 Ur Specific [place] >= 1.030 H Urine Protein 30 H Urine Ketones >=160 H Urine Blood Trace-intact H Urine Nitrite Negative Urine Bilirubin Negative Urine Urobilinogen 0.2 Ur Leukocyte Esterase Negative Urine RBC 5-10 H Urine WBC 0-2 Ur Epithelial Cells Rare Urine Crystals Negative Urine Bacteria Negative Urine Casts Urine Mucus Heavy Urine Other Negative Ur Culture Indicated? No Urine Glucose Negative Time Spent with Patient Time Spent with Patient: 35-49 minutes Time was spent: preparing to see the patient(eg.review tests), obtaining and/or reviewing separately otained hiistory, ordering medications,tests, procedures, referring, communicating with other health healthcare administration internship, indepentently interpreting results, counseling the patient and care coordination
[2023-07-16 20:46] VITALS: BP 105/67; PULSE 91; RESP 18; TEMP 36.9; O2SAT 95
[2023-07-16] MEDS: Melatonin 3 MG TAB 9 MG PO (20:47)
[2023-07-16] MEDS: Zolpidem 6.25 MG TABCR PO (20:47)
[2023-07-16] MEDS: clonazePAM 0.5 MG TAB PO (20:48)
[2023-07-17] VITALS (7 sets, daily range): BP systolic 95–110; BP diastolic 61–79; PULSE 68–115; RESP 16–101; TEMP 36.2–36.8; O2SAT 92–97
[2023-07-17] MEDS: CEFEPIME 2 GM in Normal Saline 100 ML IVPB ×3 (01:33→17:53)
[2023-07-17] MEDS: metroNIDAZOLE 500 MG/100 ML BAG 100 MG IVPB ×3 (03:48→21:12)
[2023-07-17] MEDS: Levothyroxine 25 MCG TAB PO (05:37)
[2023-07-17 07:33] LABS: Abs Immature Grans 0.02 10^3/uL (0.0-0.06); Absolute Basophil Count 0.02 10^3/uL (0.0-0.2); Absolute Eosinophil Count 0.16 10^3/uL (0.0-0.7); Absolute Monocyte Count 0.22 10^3/uL (0.1-0.8); Absolute Neutrophil Count 2.45 10^3/uL (1.2-6.7); Basophils % 0.6; Eosinophils % 4.6; Immature Grans % 0.6; Lymphocytes % 17.3; MCH 26.4 pg (27.0-33.0); MCHC 29.6 % (32.0-36.0); MCV 89 fL (80-95); MPV 10.9 fL (8.0-11.0); Monocytes % 6.3; Neutrophils % 70.6; Platelet Count 198 10^3/uL (130-400); RBC 3.03 10^6/uL (3.93-5.22); RDW 19.6 % (11.7-14.6); RDW-SD 64.3 fL; WBC 3.47 10^3/uL (4.4-10.8)
[2023-07-17 07:42] LABS: Anion Gap 11.6 mmol/L (3-11); BUN 5 mg/dL (7-18); CO2 25.4 mmol/L (21.0-32.0); CREATININE 0.4 mg/dL (0.55-1.02); Calcium 7.8 mg/dL (8.5-10.1); Chloride 105 mmol/L (98-107); Estimated GFR 125.86 (mL/min/1.73m2); Glucose 77 mg/dL (74-106); Magnesium 1.7 mg/dL (1.8-2.4); Potassium 3.4 mmol/L (3.5-5.1); Sodium 142 mmol/L (136-145)
[2023-07-17] MEDS: Polyethylene Glycol 3350 17 GM PACKET PO (08:22)
[2023-07-17] MEDS: HYDROmorphone 2 MG TAB PO ×4 (08:23→21:12)
[2023-07-17] MEDS: DULoxetine 30 MG CAP 60 MG PO (08:25)
[2023-07-17] MEDS: Nystatin POWDER 60 GM JAR TP ×3 (08:25→21:46)
[2023-07-17] MEDS: Normal Saline Flush 10 ML SYR IVP ×3 (08:26→21:14)
[2023-07-17] MEDS: Apixaban 2.5 MG TAB PO ×2 (08:26→21:13)
[2023-07-17] MEDS: Multivitamin TAB 1 TAB PO (08:26)
[2023-07-17] MEDS: Pantoprazole 40 MG TABCR PO (08:26)
[2023-07-17] MEDS: Zinc Sulfate 220 MG TAB PO (08:27)
[2023-07-17] MEDS: Baclofen 10 MG TAB 20 MG PO ×2 (08:27→21:13)
[2023-07-17] MEDS: Acetaminophen 500 MG TAB 1000 MG PO ×2 (08:27→21:13)
[2023-07-17] MEDS: Magnesium Oxide 400 MG TAB PO ×2 (08:27→21:13)
[2023-07-17] MEDS: Calcium Carbonate 1.5 GM TAB PO ×2 (08:28→21:13)
[2023-07-17] MEDS: Ondansetron 4 MG/2 ML VIAL IVP ×2 (08:56→15:33)
[2023-07-17 11:25] LABS: Lab Add On Test DONE
[2023-07-17 11:36] LABS: C-Reactive Protein 1.73 mg/dL (<or=0.5)
[2023-07-17] MEDS: MAGNESIUM SULFATE 2 GM/50 ML BAG IVPB (11:47)
[2023-07-17] MEDS: POTASSIUM CHLORIDE 20 MEQ/100 ML BAG 50 MEQ IVPB ×2 (14:19→18:03)
--- NOTE | 2023-07-17 14:36 | PDOC.CMPRO ---
Date of service: 07/17/23 Time of Service: 14:45 Care Management Progress Note Progress Note Text Progress Note Text: S/O: Ethel was laying in bed when meeting with CM. Ethel described being nauseous again today but was able to engage in conversation. 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 Nursing staff were present in the room preparing for a sponge bath so interaction was brief. CM discussed advocating for a shower per her wishes when she is up for it; today was not possible since she was getting magnesium that was making her nauseous. A: Ethel is a 42 year old female admitted to [facility] 07/10/23 sepsis, hospital-acquired pneumonia, UTI P: Ethel will return to [facility] once medically cleared. Ethel will transport via facility vehicle. She will follow up with her PCP and discharge plan of care. CM will continue to follow. SDOH(Care Management) Screening Will the Patient Participate in the Screening?: Yes Do you worry about having a steady place to live?: no In the past 12 months, have you had to go without electric, gas, oil or water in your home?: no Have you or anyone in your house had to go without enough food to eat?: no Has lack of transportation kept you from medical appointments or from doing things needed for daily living?: no Has anyone in your support network made you feel unsafe for any reason?: choose not to answer
--- NOTE | 2023-07-17 16:58 | PT.INTREAT ---
Date of service: 07/17/23 Time of Service: 13:03 PT Notes Visit Reasons: Sepsis,Hospital-acquired pneumonia,UTI,Osteomyelit Inpatient Physical Therapy Treatment Note [facility] Date: 07/17/23 PRECAUTIONS: Fall, standard, activity as tolerated SUBJECTIVE: Patient reports still feeling nauseous, although less in the afternoon than the morning. Reports wanting to go home. OBJECTIVE: Supine in bed, 2 pillows under left leg, one pillow between right leg and left, one pillow under right lower leg, ankle, and foot. ? PAIN: Reports pain, sensitivity over ventral wrist VITALS: monitored by nursing staff. BED MOBILITY/TRANSFERS? Rolling L/R: not assessed Supine-sit: not assessed ? Sit-supine: not assessed ? Sit-stand: not assessed ? Stand-sit: not assessed ? Bed-Chair: not assessed ? Chair-bed: not assessed anual therapy ([id number]): PROM to bilateral ankles in all planes, bilateral knees into flexion and extension, right hip flexion, extension, abduction, external rotation. Left hip prom into abduction, flexion. PROM to right shoulder flexion, abduction, internal and external rotation, elbow into flexion and extension, wrist limited by pain. ASSESSMENT:? Patient tolerates therapy well. Right knee extends to ~90 degrees today, right hip external rotation gains ~20 degrees, right elbow extends to 110 degrees, right shoulder external rotation to ~60 degrees. PLAN: Continue PROM per plan of care to patient tolerance until patient is medically cleared for discharge. Patient to be seen once per day, per instruction from ROCIO Ellis. TREATMENT CODE/TIME: 25 minutes beginning at 13:03
--- NOTE | 2023-07-17 17:43 | PGE_ITS ---
Date of Service Date of service: 07/17/23 Time of Service: 18:13 Assessment and Plan Assessment and plan (1) Sepsis: Status: Acute Assessment and plan: Sources: Persistent L gluteal abscess associated with a decubitous ulcer and ischial osteomyelitis, present on admission; pneumonia, which was mild at best on CT 07/10/23, in her bilateral lower lobes. Her UA on 07/10/23 was not consistent with a UTI, so I do not believe that a UTI was a part of her clinical picture. Blood cultures, urine C&S negative. CRP is starting to improve. Continue empiric cefepime + flagyl. s/p drain of L gluteal abscess by [facility] 07/14/23. MRSA nares negative. I called [facility] transfer center and asked about culture results: NGTD. Previous wound cx with proteus, strep anginosus, and other GP marnie, mixed (06/17/2023). May still require a myocutaneous rotational flap graft, which would be difficult to heal due to inability to offload all pressure due to the patient's contractures. A specialty bed has been ordered. Consider ID consult. [facility] discharge summary indicates that the course of treatment there consistent of medical therapy alone; no surgical intervention was done. The patient states that she would be willing to have the procedures done. Qualifiers: Sepsis type: Pseudomonas Sepsis acute organ dysfunction status: without acute organ dysfunction Qualified Code(s): A41.52 - Sepsis due to Pseudomonas (2) Abscess, gluteal, left: Status: Chronic Assessment and plan: As above (3) Nausea: Status: Acute Assessment and plan: Trial phenergan. Continue PPI On a bowel regimen, but still constipated. (4) HCAP (healthcare-associated pneumonia): Status: Acute Assessment and plan: As above (5) UTI (urinary tract infection), bacterial: Status: Ruled-out (6) Osteomyelitis: Status: Chronic Assessment and plan: The plan was to continue ceftriaxone + flagyl through 07/22 and follow up with ID ([facility]'s Dr Whiting is available over telephone). At this point, the antibiotic course would likely need to be extended. Qualifiers: Osteomyelitis type: chronic, with draining sinus Osteomyelitis location: other site Qualified Code(s): M86.48 - Chronic osteomyelitis with draining sinus, other site (7) Sacral decubitus ulcer, stage IV: Status: Chronic Assessment and plan: Continue wound care. I have also consulted general surgery. Wound care recommendations entered. (8) Multiple sclerosis: Status: Chronic Assessment and plan: PT, OT, speech therapy, and palliative care are consulted. ?Depression component as well. Consider an antidepressant. (9) Uncontrolled pain: Status: Acute Assessment and plan: This appears better with scheduled tylenol and increased fentanyl patch. (10) Hypothyroidism: Status: Chronic Assessment and plan: TSH 2.27. Continue levothyroxine. Qualifiers: Hypothyroidism type: acquired Qualified Code(s): E03.9 - Hypothyroidism, unspecified (11) Obstructive sleep apnea (adult) (pediatric): Status: Chronic Assessment and plan: Per RT, the patient does not chronically use a CPAP/BiPAP machine. F/u as outpatient. 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 I do not think this requires further workup. (13) DVT prophylaxis: Status: Acute Assessment and plan: On apixaban (14) Discharge planning issues: Status: Acute Assessment and plan: Full code Palliative care, PT, OT, speech therapy consulted. Continues to require hospitalization. Subjective Subjective Interval history since last seen: Ethel hasn't been able to eat anything today. She has been dry heaving all day. She had not gotten any phenergan yet; I had asked the nurses to do that now, if possible. Otherwise, she has no complaints. She says she is trying to hang in there. No dizziness, CP, SOb. She is constipated. She says enemas work. Exam Narrative Exam Narrative: General: A pleasant middle-aged female who is uncomfortably laying in bed, A&Ox3 HEENT: EOMI, MMM Heart: RRR, no m/r/g Lungs: CTAB anteriorly Abdomen: soft, distended, full, nontender; posterior drain with serosanguenous fluid visible Extremities: +2 pitting edema at the feet, RLE contracted at the knee; B hands contracted Objective Last Vital Signs Temp 36.3 C L 07/17/23 15:07 Pulse 96 H 07/17/23 15:07 Resp 16 07/17/23 15:07 BP 95/61 L 07/17/23 15:07 Pulse Ox 94 07/17/23 15:07 Laboratory Results - last 24 hr 07/17/23 05:43 WBC 3.47 L RBC 3.03 L Hgb 8.0 L Hct 27.0 L MCV 89 MCH 26.4 L MCHC 29.6 L RDW 19.6 H Plt Count 198 MPV 10.9 Immature Gran % 0.6 Neutrophils % 70.6 Lymphocytes % 17.3 Monocytes % 6.3 Eosinophils % 4.6 Basophils % 0.6 Nucleated RBC % 0.0 Absolute Neutrophils 2.45 Absolute Lymphocytes 0.60 L Absolute Monocytes 0.22 Absolute Eosinophils 0.16 Absolute Basophils 0.02 Sodium 142 Potassium 3.4 L Chloride 105 Carbon Dioxide 25.4 Anion Gap 11.6 H BUN 5 L Creatinine 0.4 L Est GFR (CKD-EPI 2020) 125.86 Glucose 77 Calcium 7.8 L Magnesium 1.7 L C-Reactive Protein 1.73 H Add-On Test Request DONE Time Spent with Patient Time Spent with Patient: 35-49 minutes Time was spent: preparing to see the patient(eg.review tests), obtaining and/or reviewing separately otained hiistory, ordering medications,tests, procedures, referring, communicating with other health cardiac care unit nurse, indepentently interpreting results, counseling the patient and care coordination
[2023-07-17] MEDS: Promethazine 25 MG TAB PO (17:50)
[2023-07-17] MEDS: fentaNYL 50 MCG PATCH TD (21:10)
[2023-07-17] MEDS: fentaNYL 12 MCG PATCH TD (21:11)
[2023-07-17] MEDS: Melatonin 3 MG TAB 9 MG PO (21:12)
[2023-07-17] MEDS: Docusate Sodium 100 MG CAP 200 MG PO (21:13)
[2023-07-17] MEDS: clonazePAM 0.5 MG TAB PO (21:13)
[2023-07-17] MEDS: Zolpidem 6.25 MG TABCR PO (21:13)
[2023-07-18] MEDS: CEFEPIME 2 GM in Normal Saline 100 ML IVPB ×3 (01:30→17:41)
[2023-07-18 03:38] VITALS: BP 96/61; PULSE 91; RESP 16; TEMP 36.5; O2SAT 96
[2023-07-18] MEDS: metroNIDAZOLE 500 MG/100 ML BAG 100 MG IVPB ×3 (05:00→20:46)
[2023-07-18] MEDS: Levothyroxine 25 MCG TAB PO (05:35)
[2023-07-18 07:13] LABS: Abs Immature Grans 0.01 10^3/uL (0.0-0.06); Absolute Basophil Count 0.02 10^3/uL (0.0-0.2); Absolute Eosinophil Count 0.26 10^3/uL (0.0-0.7); Absolute Monocyte Count 0.24 10^3/uL (0.1-0.8); Absolute Neutrophil Count 1.98 10^3/uL (1.2-6.7); Basophils % 0.6; Eosinophils % 8.4; HCT 26.6 % (36.0-46.0); Immature Grans % 0.3; Lymphocytes % 19.3; MCH 26.6 pg (27.0-33.0); MCHC 30.1 % (32.0-36.0); MCV 88 fL (80-95); Monocytes % 7.7; Neutrophils % 63.7; Platelet Count 212 10^3/uL (130-400); RBC 3.01 10^6/uL (3.93-5.22); RDW 19.7 % (11.7-14.6); RDW-SD 63.9 fL; WBC 3.11 10^3/uL (4.4-10.8)
[2023-07-18 07:23] LABS: Anion Gap 10.9 mmol/L (3-11); BUN 4 mg/dL (7-18); C-Reactive Protein 1.71 mg/dL (<or=0.5); CO2 24.1 mmol/L (21.0-32.0); CREATININE 0.5 mg/dL (0.55-1.02); Chloride 105 mmol/L (98-107); Estimated GFR 119.27 (mL/min/1.73m2); Glucose 76 mg/dL (74-106); Magnesium 2.1 mg/dL (1.8-2.4); Sodium 140 mmol/L (136-145)
[2023-07-18 07:47] LABS: Procalcitonin 6.3 ng/mL
[2023-07-18 07:59] VITALS: BP 111/74; PULSE 96; RESP 16; TEMP 36.4; O2SAT 94
[2023-07-18] MEDS: Polyethylene Glycol 3350 17 GM PACKET PO (08:17)
[2023-07-18] MEDS: DULoxetine 30 MG CAP 60 MG PO (08:18)
[2023-07-18] MEDS: Senna TAB 1 TAB PO (08:18)
[2023-07-18] MEDS: Calcium Carbonate 1.5 GM TAB PO ×2 (08:18→20:46)
[2023-07-18] MEDS: Docusate Sodium 100 MG CAP 200 MG PO (08:18)
[2023-07-18] MEDS: Magnesium Oxide 400 MG TAB PO ×2 (08:18→20:46)
[2023-07-18] MEDS: Baclofen 10 MG TAB 20 MG PO ×2 (08:18→20:46)
[2023-07-18] MEDS: HYDROmorphone 2 MG TAB PO ×4 (08:18→20:45)
[2023-07-18] MEDS: Acetaminophen 500 MG TAB 1000 MG PO ×2 (08:19→18:30)
[2023-07-18] MEDS: Pantoprazole 40 MG TABCR PO (08:19)
[2023-07-18] MEDS: Multivitamin TAB 1 TAB PO (08:19)
[2023-07-18] MEDS: Zinc Sulfate 220 MG TAB PO (08:19)
[2023-07-18] MEDS: Apixaban 2.5 MG TAB PO ×2 (08:19→20:46)
[2023-07-18] MEDS: Normal Saline Flush 10 ML SYR IVP ×2 (08:20→20:47)
[2023-07-18] MEDS: Nystatin POWDER 60 GM JAR TP ×3 (08:21→20:47)
[2023-07-18] MEDS: Promethazine 25 MG TAB PO (09:26)
[2023-07-18 11:28] VITALS: BP 108/72; PULSE 99; RESP 16; TEMP 36.9; O2SAT 96
--- NOTE | 2023-07-18 12:10 | PT.INTREAT ---
PT Notes Visit Reasons: Sepsis,Hospital-acquired pneumonia,UTI,Osteomyelit Inpatient Physical Therapy Treatment Note [facility] Date: 07/18/23 SUBJECTIVE: Ethel offers no complaints OBJECTIVE: []? Manual therapy: [id number] provided P/AAROM of entire right UE as well as bilateral U/LE through out all planes of motion. ASSESSMENT:? c/o increased pain in left foot/ankle and right wrist during stretching ex. PLAN: continue ROM following POC. TREATMENT CODE/TIME: 20 min. [id number]
[2023-07-18 15:38] VITALS: BP 113/72; PULSE 109; RESP 16; TEMP 36.5; O2SAT 96
--- NOTE | 2023-07-18 17:24 | W.PM.PROGNOT ---
Date of Service Date of service: 07/18/23 Time of Service: 17:24 Assessment and Plan Assessment and plan (1) Sepsis: Status: Acute Assessment and plan: Sources: Persistent L gluteal abscess associated with a decubitous ulcer and ischial osteomyelitis, present on admission Blood cultures, urine C&S negative. CRP is starting to improve however procalcitonin is worse (6.3) Continue empiric cefepime + flagyl. s/p drain of L gluteal abscess by [facility] 07/14/23. I have ordered follow up CT scan of her abdomen and pelvis for tomorrow to see if drain is still in place, or if a new drain is needed. Previous wound cx with proteus, strep anginosus, and other GP marnie, mixed (06/17/2023). May still require a myocutaneous rotational flap graft, which would be difficult to heal due to inability to offload all pressure due to the patient's contractures. A specialty bed has been ordered. Consider ID consult. [facility] discharge summary indicates that the course of treatment there consistent of medical therapy alone; no surgical intervention was done. The patient states that she would be willing to have the procedures done. Not an ideal candidate for surgical intervention, I will discuss w/ Dr. Baxter tomorrow after her CT scan is done. Qualifiers: Sepsis type: Pseudomonas Sepsis acute organ dysfunction status: without acute organ dysfunction Qualified Code(s): A41.52 - Sepsis due to Pseudomonas (2) Abscess, gluteal, left: Status: Chronic Assessment and plan: As above (3) Nausea: Status: Acute Assessment and plan: trial of reglan, remains on bowel regimen w/ some small stools but last moderate stool from 3 days ago, if no significant BM by tomorrow then will give her enemas and Relistor or even magesium citrate or go lytely (4) HCAP (healthcare-associated pneumonia): Status: Acute Assessment and plan: not convinced this was a pneumonia, more likely atelectasis; irregardless she has no cough or dyspnea or hypoxemia and follow up CXR on 07/16 did not show any infiltrates and she remains on antibiotics for her sacral abscess and osteomyelitis. (5) Osteomyelitis: Status: Chronic Assessment and plan: The plan was to continue ceftriaxone + flagyl through 07/22 and follow up with ID ([facility]'s Dr Whiting is available over telephone). At this point, the antibiotic course would likely need to be extended. Qualifiers: Osteomyelitis type: chronic, with draining sinus Osteomyelitis location: other site Qualified Code(s): M86.48 - Chronic osteomyelitis with draining sinus, other site (6) Sacral decubitus ulcer, stage IV: Status: Chronic Assessment and plan: Continue wound care. General surgery consulted as well (7) Multiple sclerosis: Status: Chronic Assessment and plan: PT, OT, speech therapy, and palliative care are consulted. ?Depression component as well. Consider an antidepressant. (8) Uncontrolled pain: Status: Acute Assessment and plan: This appears better with scheduled tylenol and increased fentanyl patch. (9) Hypothyroidism: Status: Chronic Assessment and plan: TSH 2.27. Continue levothyroxine. Qualifiers: Hypothyroidism type: acquired Qualified Code(s): E03.9 - Hypothyroidism, unspecified (10) Obstructive sleep apnea (adult) (pediatric): Status: Chronic Assessment and plan: Per RT, the patient does not chronically use a CPAP/BiPAP machine. F/u as outpatient. (11) DVT prophylaxis: Status: Acute Assessment and plan: On apixaban (12) Discharge planning issues: Status: Acute Assessment and plan: Full code Palliative care, PT, OT, speech therapy consulted. Continues to require hospitalization. Subjective Subjective Interval history since last seen: Patient complains of chronic dry heaves and she is also expressing frustation over her chronic wound infection not getting better. Exam Narrative Exam Narrative: Tearful, however she is alert and appropriate Lungs: clear Heart: RRR Abdomen: slightly distended, soft, normal bowel sounds (last BM was small soft one today, last regular bm was 2/7). She says not unusual for her to go 2 to 3 days w/out BM; I told her if no decent BM by tomorrow then we will resort to enemas and Relistor PRIYANKA draining scant sanguinous fluid Objective Last Vital Signs Temp 36.5 C 07/18/23 15:38 Pulse 109 H 07/18/23 15:38 Resp 16 07/18/23 15:38 BP 113/72 07/18/23 15:38 Pulse Ox 96 07/18/23 15:38 Laboratory Results - last 24 hr 07/18/23 06:40 WBC 3.11 L RBC 3.01 L Hgb 8.0 L Hct 26.6 L MCV 88 MCH 26.6 L MCHC 30.1 L RDW 19.7 H Plt Count 212 MPV 11.0 Immature Gran % 0.3 Neutrophils % 63.7 Lymphocytes % 19.3 Monocytes % 7.7 Eosinophils % 8.4 Basophils % 0.6 Nucleated RBC % 0.0 Absolute Neutrophils 1.98 Absolute Lymphocytes 0.60 L Absolute Monocytes 0.24 Absolute Eosinophils 0.26 Absolute Basophils 0.02 Sodium 140 Potassium 4.0 Chloride 105 Carbon Dioxide 24.1 Anion Gap 10.9 BUN 4 L Creatinine 0.5 L Est GFR (CKD-EPI 2020) 119.27 Glucose 76 Calcium 8.0 L Magnesium 2.1 C-Reactive Protein 1.71 H Procalcitonin 6.3 Time Spent with Patient Time Spent with Patient: 35-49 minutes Time was spent: preparing to see the patient(eg.review tests), ordering medications,tests, procedures, referring, communicating with other health medicare sales executive, indepentently interpreting results, counseling the patient and care coordination
[2023-07-18] MEDS: clonazePAM 0.5 MG TAB PO (20:47)
[2023-07-18] MEDS: Melatonin 3 MG TAB 9 MG PO (20:47)
[2023-07-18] MEDS: Zolpidem 6.25 MG TABCR PO (20:48)
[2023-07-18 23:31] VITALS: BP 99/63; PULSE 80; RESP 16; TEMP 35.6; O2SAT 94
[2023-07-19] MEDS: CEFEPIME 2 GM in Normal Saline 100 ML IVPB ×3 (02:29→17:19)
[2023-07-19] MEDS: metroNIDAZOLE 500 MG/100 ML BAG 100 MG IVPB ×3 (05:15→19:36)
[2023-07-19] MEDS: Levothyroxine 25 MCG TAB PO (05:15)
[2023-07-19] MEDS: Normal Saline 500 ML 20 ML IV (05:15)
--- NOTE | 2023-07-19 07:00 | DI.CT_ITS ---
Exam(s) CT ABDOMEN PELVIS W EXAM: CT ABDOMEN PELVIS W CLINICAL HISTORY: follow up gluteal abscess, ischial osteomyelitis. TECHNIQUE: Imaging Protocol: Axial computed tomography images with coronal and sagittal reformatted images were created and reviewed CONTRAST MATERIAL: Intravenous: Omnipaque 350 Contrast volume:100 ml Oral: yes / no COMPARISON: CT CHEST FOR PULMONARY EMBOLUS from 03/13/2017 CT ABD PELVIS WITH CONTRAST from 12/27/[address] PELVIC W from 06/18/[address] CHEST PE ABD PELVIS W from 07/10/2023 FINDINGS: ABDOMEN and PELVIS: Lung Bases: Small bilateral pleural effusions, new since prior. Significant bibasilar atelectasis ve rsus infiltrates, similar to prior. Liver: Normal density. No measurable mass. Gallbladder and biliary tract: Layering stones versus sludge. No gallbladder wall thickening or bili vimal dilatation. Pancreas: Normal density. No abnormal calcifications or inflammatory process. No evidence of mass. Spleen: Normal. Kidneys: Normal size, contour and axis. No radiodense stones. No obstructive uropathy. No suspicious masses seen. Adrenal glands: No masses seen. Vasculature: Abdominal aorta non-dilated. Soft tissues: Left buttock decubitus ulcer with packing material and drainage catheter in place.. Pr ominence of perianal tissue in the slightly worsened on the prior exam. Some soft tissue swelling in the gluteal cleft in this region. Mild diffuse soft tissue edema. Bladder: Decompressed by Melendez catheter. Bowel: Large quantity of stool throughout the colon. No obstruction. No bowel wall thickening. Carrie endix normal. Peritoneal cavity: No ascites. No focal collection or mesenteric inflammatory response. Bones: Chronic right hip deformity noted. No change in appearance of posterior left ischial bone los s. Reproductive organs: Status post hysterectomy. Lymph nodes: Unremarkable. IMPRESSION:: Improvement in appearance of left gluteal decubitus ulcer with packing material and quang inage catheter in place. Increased edema in the inferior left gluteal fold without focal abscess. m ildly increased perirectal thickening without discrete abscess. Stable appearance of bony erosion of the posterior left ischium. Large quantity of fecal material. Small bilateral pleural effusions. Bibasilar atelectasis versus infiltrates. RADIATION DOSE DELIVERED: Total DLP DATA REPOSITORY: All CT scans at this facility are submitted to the National Radiology Data Registry (NRDR) Dose Index Registry (DIR) with the [employer] (ACR). RADIATION OPTIMIZATION: All CT scans at this facility use at least one of these dose optimization te chniques: automated exposure control; mA and/or kV adjustment per patient size (includes targeted exa ms where dose is matched to clinical indication); or iterative reconstruction.
[2023-07-19] MEDS: Normal Saline - Diluent 50 ML VIAL IJ (09:22)
[2023-07-19] MEDS: Omnipaque 350 MG/ML 100 ML BTL IJ (09:24)
--- NOTE | 2023-07-19 09:48 | DI.VRAD_ITS ---
PROCEDURE INFORMATION: Exam: CT Abdomen And Pelvis With Contrast Exam date and time: 07/19/2023 9:18 AM Age: 42 years old Clinical indication: Left gluteal abscess, left ischial osteomyelitis TECHNIQUE: Imaging protocol: Computed tomography of the abdomen and pelvis with contrast. Radiation optimization: All CT scans at this facility use at least one of these dose optimization techniques: automated exposure control; mA and/or kV adjustment per patient size (includes targeted exams where dose is matched to clinical indication); or iterative reconstruction. Contrast material: OMNI 350; Contrast volume: 100 ml; Contrast route: INTRAVENOUS (IV); COMPARISON: CT CHEST PE ABD PELVIS W 07/10/2023 4:05 PM FINDINGS: Perianal fluid appears slightly more prominent than previously. Radiodensity within the deep left gluteal/ischial decubitus ulcer presumably represents packing material. There is slightly less fluid in this region on the current study compared to previous exam. Also posterior left ischial cortical bone (series 4, image 83) appears similar to previous exam. No new bone destruction detected. 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 Persistent bilateral posterior basilar atelectasis or infiltrates. Interval development of small pleural effusions. Dependent density within the gallbladder may represent very small stones layering on the dependent wall. No gallbladder wall thickening or biliary duct dilation. No acute abnormality of liver, spleen, pancreas, adrenal glands, or left kidney is seen compared to 07/10/2023. Minimal fullness of right renal collecting system on the current study without evidence of urinary tract calculus or obvious obstructing lesion. Urinary bladder is decompressed by Melendez catheter. No free intraperitoneal air . No evidence of bowel obstruction. There is abundant stool within the colon. IMPRESSION: 1. There is slightly less fluid within the left inferior gluteal/ischial decubitus wound or sinus tract compared to the prior study. 2. Focal loss of ischial cortex posteriorly is stable without progressive bone destruction since the prior study. 3. Perianal and inferior gluteal crease fluid may be slightly more prominent than previously. 4. Small bilateral pleural effusions have developed. Persistent posterior bibasilar atelectasis. 5. Minimal fullness of right renal collecting system without obvious obstruction. Dictated and Authenticated by: Jus Lao MD. Ordering:[facility] Kiara Abbott MD
[2023-07-19] MEDS: HYDROmorphone 2 MG TAB PO ×3 (09:52→19:26)
[2023-07-19] MEDS: Senna TAB 1 TAB PO (09:53)
[2023-07-19] MEDS: Multivitamin TAB 1 TAB PO (09:53)
[2023-07-19] MEDS: Acetaminophen 500 MG TAB 1000 MG PO ×3 (09:53→19:26)
[2023-07-19] MEDS: Calcium Carbonate 1.5 GM TAB PO ×2 (09:53→19:26)
[2023-07-19] MEDS: Metoclopramide 10 MG TAB PO ×4 (09:53→21:49)
[2023-07-19] MEDS: DULoxetine 30 MG CAP 60 MG PO (09:54)
[2023-07-19] MEDS: Baclofen 10 MG TAB 20 MG PO ×2 (09:54→19:26)
[2023-07-19] MEDS: Pantoprazole 40 MG TABCR PO (09:54)
[2023-07-19] MEDS: Magnesium Oxide 400 MG TAB PO ×2 (09:54→19:27)
[2023-07-19] MEDS: Zinc Sulfate 220 MG TAB PO (09:54)
[2023-07-19] MEDS: Docusate Sodium 100 MG CAP 200 MG PO ×2 (09:55→19:26)
[2023-07-19] MEDS: Apixaban 2.5 MG TAB PO ×2 (09:58→19:27)
[2023-07-19] MEDS: Methylnaltrexone 12 MG/0.6 ML VIAL SC (09:58)
[2023-07-19] MEDS: Nystatin POWDER 60 GM JAR TP ×3 (09:59→19:35)
[2023-07-19] MEDS: Normal Saline Flush 10 ML SYR IVP ×3 (09:59→19:27)
[2023-07-19] MEDS: Polyethylene Glycol 3350 17 GM PACKET PO (10:00)
--- NOTE | 2023-07-19 12:17 | PT.INTREAT ---
PT Notes Visit Reasons: Sepsis,Hospital-acquired pneumonia,UTI,Osteomyelit Inpatient Physical Therapy Treatment Note [facility] Date: 07/19/23 SUBJECTIVE: Ethel states that she was up early this am for CT scan. Reports some mild discomfort from that. OBJECTIVE: []? Manual therapy: [id number] provided P/AAROM of entire right UE as well as bilateral U/LE through out all planes of motion. performed resisted tband ex of UE, bicep, tricep, shld flex and IR/ER. ASSESSMENT:?c/o pain with all ROM of right wrist, digits and hand. PLAN: continue ROM following POC. TREATMENT CODE/TIME: 25 min. [id number]
[2023-07-19 12:23] LABS: Abs Immature Grans 0.01 10^3/uL (0.0-0.06); Absolute Basophil Count 0.02 10^3/uL (0.0-0.2); Absolute Eosinophil Count 0.19 10^3/uL (0.0-0.7); Absolute Lymphocyte Count 0.63 10^3/uL (1.2-3.4); Absolute Monocyte Count 0.24 10^3/uL (0.1-0.8); Basophils % 0.6; Eosinophils % 5.6; HGB 8.5 g/dL (11.2-15.7); Immature Grans % 0.3; Lymphocytes % 18.6; MCH 26.6 pg (27.0-33.0); MCHC 30.4 % (32.0-36.0); MCV 88 fL (80-95); MPV 10.6 fL (8.0-11.0); Monocytes % 7.1; Neutrophils % 67.8; Platelet Count 241 10^3/uL (130-400); RBC 3.19 10^6/uL (3.93-5.22); RDW 19.9 % (11.7-14.6); RDW-SD 64.3 fL; WBC 3.39 10^3/uL (4.4-10.8)
[2023-07-19 12:34] LABS: ALT 9 U/L (14-59); AST 17 U/L (15-37); Albumin 1.9 g/dL (3.4-5.0); Alkaline Phosphatase 108 U/L (46-116); Anion Gap 8.9 mmol/L (3-11); BUN 4 mg/dL (7-18); Bilirubin, Total 0.3 mg/dL (0.2-1.0); CO2 26.1 mmol/L (21.0-32.0); CREATININE 0.5 mg/dL (0.55-1.02); Calcium 8.2 mg/dL (8.5-10.1); Chloride 103 mmol/L (98-107); Estimated GFR 119.27 (mL/min/1.73m2); Glucose 97 mg/dL (74-106); Sodium 138 mmol/L (136-145); Total Protein 6.9 g/dL (6.4-8.2)
[2023-07-19 13:56] VITALS: BP 112/75; PULSE 99; RESP 20; TEMP 36.5; O2SAT 95
--- NOTE | 2023-07-19 14:25 | W.PM.PROGNOT ---
Date of Service Date of service: 07/19/23 Time of Service: 14:25 Assessment and Plan Assessment and plan (1) Abscess, gluteal, left: Status: Chronic Assessment and plan: I appreciate Dr. Baxter's thorough and thoughtful notes regarding his impression of patient's current course and prognosis and likely outcomes if surgical intervention were pursued. I will discuss this w/ Dr. Camacho on Thursday but I agree w/ Dr. Baxter that any surgical intervention is likely to fail in the long run d/t her inability to off load pressure long enough for her wounds to heal. The drain does not appear to be contributing to removal of the abscess as there is very little drainage. The wound is open to the abscess down to the bone, therefore the drain probably can be removed w/out any change in her care. I will also discuss this w/ Dr. Camacho prior to removing the drain. If no surgical options are to be pursued then this begs the question as to how long on iv antibiotics and can oral antibiotics be substituted so we can discharge her from the hospital. Per Dr. Higgins's notes regarding I.D. recommendations from [place], Dr. Whiting, I.D. indicated treatement w/ Rocephin and Flagyl through 07/22. Patient is currently on Cefepime and metronidazole. We still do not have copies of her cultures from her IR drainage from 07/14 (2) Osteomyelitis: Status: Chronic Assessment and plan: continue current antibiotics and consult w/ I.D. to discuss length of treatment. Prior wound cultures have grown Proteus mirabilis and Strep anginosus. Qualifiers: Osteomyelitis type: chronic, with draining sinus Osteomyelitis location: other site Qualified Code(s): M86.48 - Chronic osteomyelitis with draining sinus, other site (3) Sacral decubitus ulcer, stage IV: Status: Chronic Assessment and plan: as above (4) Multiple sclerosis: Status: Chronic Assessment and plan: patient has either failed or be intolerant of prior treatments. (5) Uncontrolled pain: Status: Acute Assessment and plan: will adjust her fentanyl dose, dc the scheduled hydromorphone and increase the frequency of her prn hydromorphone (6) Hypothyroidism: Status: Chronic Assessment and plan: continue current levothyroxine dose, TSH 2.27 Qualifiers: Hypothyroidism type: acquired Qualified Code(s): E03.9 - Hypothyroidism, unspecified (7) Obstructive sleep apnea (adult) (pediatric): Status: Chronic Assessment and plan: Per RT, the patient does not chronically use a CPAP/BiPAP machine. F/u as outpatient. (8) DVT prophylaxis: Status: Acute Assessment and plan: On apixaban (9) Discharge planning issues: Status: Acute Assessment and plan: Full code Palliative care, PT, OT, speech therapy consulted. Continues to require hospitalization but need to address length of parenteral antibiotics Subjective Subjective Interval history since last seen: Patient continues to have pain w/ any dressing changes, she tries to tolerate the positional changes needed to offload her pressure from her sacral decubitus. I told her that I would try to work w/ pharmacy to adjust her pain meds so she wont have as much breakthrough pain. I think that consolidation of her scheduled duragesic and hydromorphone would be better than taking two different narcotics on scheduled basis. She had a small BM yesterday but none today. I told her that Dr. Baxter, general surgeon, and I discussed her case. He feels that while the surgery to debride the osteomyelitis and sacral wound could be done and a myofascial flap could be done, this would be a painful process w/ both the surgery and the healing and there is no guarrantee this would work and the dressing changes required would be very painful. He feels that the infection will never completely be cured and ultimately the flap would fail. I expressed my concerns to her but said that i would discuss this further w/ Dr. Fernando Camacho on Thursday. Exam Narrative Exam Narrative: Ethel appears depressed, quiet, but she is not tearful. She seems to understand what I have explained to her. Yesterday she indicated to me that she does not want to give up but she is discouraged. Lungs: clear Heart: RRR Abdomen: slight distension but not tender, normal bowel sounds Sacral wound not examined as this has been packed and dressed, dressing change is due tomorrow and I will examine when nursing makes the dressing changes. Objective Last Vital Signs Temp 36.5 C 07/19/23 13:56 Pulse 99 H 07/19/23 13:56 Resp 20 07/19/23 13:56 BP 112/75 07/19/23 13:56 Pulse Ox 95 07/19/23 13:56 Laboratory Results - last 24 hr 07/19/23 12:00 WBC 3.39 L RBC 3.19 L Hgb 8.5 L Hct 28.0 L MCV 88 MCH 26.6 L MCHC 30.4 L RDW 19.9 H Plt Count 241 MPV 10.6 Immature Gran % 0.3 Neutrophils % 67.8 Lymphocytes % 18.6 Monocytes % 7.1 Eosinophils % 5.6 Basophils % 0.6 Nucleated RBC % 0.0 Absolute Neutrophils 2.30 Absolute Lymphocytes 0.63 L Absolute Monocytes 0.24 Absolute Eosinophils 0.19 Absolute Basophils 0.02 Sodium 138 Potassium 4.0 Chloride 103 Carbon Dioxide 26.1 Anion Gap 8.9 BUN 4 L Creatinine 0.5 L Est GFR (CKD-EPI 2020) 119.27 Glucose 97 Calcium 8.2 L Total Bilirubin 0.3 AST 17 ALT 9 L Alkaline Phosphatase 108 Total Protein 6.9 Albumin 1.9 L Time Spent with Patient Time Spent with Patient: 35-49 minutes Time was spent: preparing to see the patient(eg.review tests), ordering medications,tests, procedures, referring, communicating with other health acute care certified nursing assistant (Dr. Baxter), indepentently interpreting results, counseling the patient and care coordination
--- NOTE | 2023-07-19 15:26 | W.PM.PROGNOT ---
Date of Service Date of service: 07/19/23 Time of Service: 14:00 Assessment and Plan Assessment and plan (1) Abscess, gluteal, left: Status: Chronic Assessment and plan: Please see my prior consultation and progress notes for more specific details on this extremely difficult and emotional case. Surgical opinions may very depending on who is consulted and that is to be expected in the balancing of the art and science of surgery. My opinion on this poor woman's condition and further management: #She suffers from severe pain while being essentially paralyzed. The inability to move and her contractures are the underlying reason she has her current wound/infection problems. #Any and all surgical interventions will almost certainly worsen her pain and suffering. #Any and all surgical interventions are almost certain to fail in the long run and probably the short run as well. That is to say, no amount of debridement and localized wound care is going to fix her underlying status which is why she has the problems to begin with. A surgical flap of any sort is only going to become susceptible to the same problems that have put her in this current condition and are likely to fail. It would be 1 thing to consider trying if she did not have any sensation. The big problem with trying anything, in the face of likely failure, is the extreme likelihood that her pain and suffering will likely worsen secondary to these efforts that, in my humble opinion, will be futile. And that is just the procedure part. She will certainly have more extensive wound care management following a surgical debridement than she currently has and that wound care will be extremely painful. (Unlike similar wounds in someone with para or quadriplegia.) #She is slowly succumbing to the the side effects and secondary awfulness from her progressive, severe and terminal disease. #I think palliative and comfort measures are the only way for modern medicine to help alleviate her suffering. It is my opinion that no invasive procedures is the most compassionate management strategy and oddly enough will probably be the most effective management strategy as well. #I recommend maintaining her draining wounds with gentle gauze packing to ensure they stay open and draining which maintain source control. I reviewed her recent CT imaging and discussed all of this with Dr. Craig Subjective Subjective Interval history since last seen: Approached by hospitalist to discuss management and clinical scenario for this patient who is well?known to all of us at this point. Reportedly patient's drain is not really putting out much anymore. Questions surround whether or not she is an operative candidate for debridement of osteomyelitis and a possible flap procedure to surgically manage the problem. Objective Last Vital Signs Temp 97.7 F 07/19/23 13:56 Pulse 99 H 07/19/23 13:56 Resp 20 07/19/23 13:56 BP 112/75 07/19/23 13:56 Pulse Ox 95 07/19/23 13:56 Laboratory Results - last 24 hr 07/19/23 12:00 WBC 3.39 L RBC 3.19 L Hgb 8.5 L Hct 28.0 L MCV 88 MCH 26.6 L MCHC 30.4 L RDW 19.9 H Plt Count 241 MPV 10.6 Immature Gran % 0.3 Neutrophils % 67.8 Lymphocytes % 18.6 Monocytes % 7.1 Eosinophils % 5.6 Basophils % 0.6 Nucleated RBC % 0.0 Absolute Neutrophils 2.30 Absolute Lymphocytes 0.63 L Absolute Monocytes 0.24 Absolute Eosinophils 0.19 Absolute Basophils 0.02 Sodium 138 Potassium 4.0 Chloride 103 Carbon Dioxide 26.1 Anion Gap 8.9 BUN 4 L Creatinine 0.5 L Est GFR (CKD-EPI 2020) 119.27 Glucose 97 Calcium 8.2 L Total Bilirubin 0.3 AST 17 ALT 9 L Alkaline Phosphatase 108 Total Protein 6.9 Albumin 1.9 L Time Spent with Patient Time Spent with Patient: 25-34 minutes Time was spent: referring, communicating with other health healthcare applications analyst (Dr. Craig), indepentently interpreting results (CT) and care coordination
[2023-07-19] MEDS: fentaNYL 75 MCG PATCH TD (18:19)
[2023-07-19 19:24] VITALS: BP 100/65; PULSE 96; RESP 18; TEMP 36.4; O2SAT 96
[2023-07-19] MEDS: Ondansetron 4 MG/2 ML VIAL IVP (21:48)
[2023-07-19] MEDS: Melatonin 3 MG TAB 9 MG PO (21:49)
[2023-07-19] MEDS: Zolpidem 6.25 MG TABCR PO (21:49)
[2023-07-19] MEDS: clonazePAM 0.5 MG TAB PO (21:49)
[2023-07-20 00:39] VITALS: BP 106/69; PULSE 100; RESP 16; TEMP 36.5; O2SAT 92
[2023-07-20] MEDS: CEFEPIME 2 GM in Normal Saline 100 ML IVPB ×3 (01:08→17:01)
[2023-07-20 03:06] VITALS: BP 114/70; PULSE 102; RESP 18; TEMP 36.4; O2SAT 93
[2023-07-20] MEDS: metroNIDAZOLE 500 MG/100 ML BAG 100 MG IVPB ×3 (03:17→19:35)
[2023-07-20] MEDS: Levothyroxine 25 MCG TAB PO (05:56)
[2023-07-20 06:37] LABS: Abs Immature Grans 0.01 10^3/uL (0.0-0.06); Absolute Basophil Count 0.02 10^3/uL (0.0-0.2); Absolute Eosinophil Count 0.24 10^3/uL (0.0-0.7); Absolute Lymphocyte Count 0.61 10^3/uL (1.2-3.4); Absolute Monocyte Count 0.23 10^3/uL (0.1-0.8); Basophils % 0.6; Eosinophils % 7.3; HCT 28.2 % (36.0-46.0); HGB 8.5 g/dL (11.2-15.7); Immature Grans % 0.3; Lymphocytes % 18.4; MCH 26.5 pg (27.0-33.0); MCHC 30.1 % (32.0-36.0); MCV 88 fL (80-95); MPV 10.9 fL (8.0-11.0); Monocytes % 6.9; Neutrophils % 66.5; Platelet Count 263 10^3/uL (130-400); RBC 3.21 10^6/uL (3.93-5.22); RDW 19.9 % (11.7-14.6); RDW-SD 62.9 fL; WBC 3.31 10^3/uL (4.4-10.8)
[2023-07-20 06:53] LABS: Anion Gap 8.8 mmol/L (3-11); BUN 5 mg/dL (7-18); CO2 28.2 mmol/L (21.0-32.0); CREATININE 0.5 mg/dL (0.55-1.02); Calcium 8.7 mg/dL (8.5-10.1); Chloride 103 mmol/L (98-107); Estimated GFR 119.27 (mL/min/1.73m2); Glucose 93 mg/dL (74-106); Sodium 140 mmol/L (136-145)
[2023-07-20 07:14] VITALS: BP 113/74; PULSE 103; RESP 20; TEMP 36.3; O2SAT 92
[2023-07-20] MEDS: Senna TAB 1 TAB PO (08:14)
[2023-07-20] MEDS: Baclofen 10 MG TAB 20 MG PO ×2 (08:15→19:34)
[2023-07-20] MEDS: Pantoprazole 40 MG TABCR PO (08:15)
[2023-07-20] MEDS: Multivitamin TAB 1 TAB PO (08:16)
[2023-07-20] MEDS: Metoclopramide 10 MG TAB PO ×4 (08:16→21:14)
[2023-07-20] MEDS: Zinc Sulfate 220 MG TAB PO (08:16)
[2023-07-20] MEDS: Calcium Carbonate 1.5 GM TAB PO ×2 (08:17→19:34)
[2023-07-20] MEDS: Apixaban 2.5 MG TAB PO ×2 (08:17→19:34)
[2023-07-20] MEDS: Acetaminophen 500 MG TAB 1000 MG PO ×3 (08:17→19:35)
[2023-07-20] MEDS: Docusate Sodium 100 MG CAP 200 MG PO ×2 (08:18→19:35)
[2023-07-20] MEDS: Magnesium Oxide 400 MG TAB PO ×2 (08:19→19:34)
[2023-07-20] MEDS: DULoxetine 30 MG CAP 60 MG PO (08:19)
[2023-07-20] MEDS: Protein Nutritional Supplement 16 GM 1 OUNCE PACKET PO (08:20)
[2023-07-20] MEDS: Nystatin POWDER 60 GM JAR TP ×3 (08:20→19:34)
[2023-07-20] MEDS: Polyethylene Glycol 3350 17 GM PACKET PO (08:20)
[2023-07-20] MEDS: Normal Saline Flush 10 ML SYR IVP ×3 (08:22→19:35)
--- NOTE | 2023-07-20 08:30 | OT.INTREAT ---
Date of service: 07/20/23 Occupational Therapy Notes Occupational Therapy Inpatient Treatment Note Date: 07/20/23 PRECAUTIONS: Fall, Standard, full SUBJECTIVE: Pt states that she is doing okay but still wants to be able to hold her tablet. Today we will work on her hand ROM to see if we can decrease her spasticity in the hand. OBJECTIVE: PAIN:no specific c/o pain Manual Therapy [id number]: OT performed PROM to pts digits into flexion and extension as well as wrist. Pt has hard end feel but tolerated this well. With hand in the neutral position, OT performed AP mobs to pts digits and wrist for faacilitation of AROM and to increase hand width to be able to hold the tablet in her hand (I). PLAN: OT will continue plan per initial evaluation. TREATMENT CODES/TIME: 04609, 10 minutes [facility] [place], [place]
[2023-07-20 10:41] VITALS: BP 105/70; PULSE 99; RESP 22; TEMP 36.7; O2SAT 93
[2023-07-20] MEDS: HYDROmorphone 2 MG TAB PO (10:51)
[2023-07-20 15:18] VITALS: BP 95/62; PULSE 98; RESP 18; TEMP 36; O2SAT 93
--- NOTE | 2023-07-20 15:50 | PT.INPN ---
PT Notes Visit Reasons: Sepsis,Hospital-acquired pneumonia,UTI,Osteomyelit Inpatient Physical Therapy Progress Note Date: 07/20/23 Dates of Service: 07/13/23 to 07/20/23 Referring Doctor: Dami Zavaleta MD PT Orders: PT CONSULT: Limited ability Precautions: Standard. Paraplegic. Total dependence for all transfers, needs mechanical lift for all transfers. 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 Admitted to [facility] for management of Sepsis, HCAP, UTI, and osteomyelitis. Awaiting back surgery at [facility] [place] for drainage of L gluteal access. PMHX: All Active Problems (Updated 07/11/23 @ 00:24 by Dami Salinas) Hypoprothrombinemia (Chronic) Sepsis (Acute) HCAP (healthcare-associated pneumonia) (Acute) Chronic pain (Chronic) Leukopenia (Acute) Sacral decubitus ulcer, stage IV (Chronic) Subglottic stenosis (Acute) Osteomyelitis (Chronic) Critical airway (Acute) Abscess (Acute) Chronic wound (Acute) Constipation (Acute) Lactic acidosis (Acute) Pressure injury of buttock, stage 3 (Acute) Hypothyroidism (Chronic) UTI (urinary tract infection), bacterial (Acute) Advance care planning (Acute) Advance directive discussed with patient (Acute) Decreased activities of daily living (ADL) (Acute) Burning with urination (Acute) Full code status (Chronic) wants aggressive care Lonely (Acute) Dysarthria (Acute) Wheelchair bound (Chronic) requires Christy lift to transfer; cannot stand and pivot snf resident (Acute) Palliative care patient (Acute) Pulmonary infiltrates on CXR (Acute) Abdominal pain (Acute) H/O: hysterectomy (Chronic) Spasticity (Acute) Diabetic neuropathy (Acute) Poor intravenous access (Acute) Blood loss anemia (Acute) Abnormal uterine bleeding (Acute) Breakthrough bleeding on Depo-Provera (Acute) SIRS (systemic inflammatory response syndrome) (Acute) Mass of tongue (Acute 06/29/17) Muscle spasticity (Chronic 06/29/14) Neurogenic bladder (Chronic 06/29/14) Neuropathic pain (Acute 06/29/14) Obesity (Acute 06/29/17) Obstructive sleep apnea (adult) (pediatric) (Chronic 06/29/17) Rosacea (Acute 06/29/14) Type 2 diabetes mellitus with hyperglycemia (Chronic 11/06/16) Urinary incontinence (Acute 05/12/17) Urinary retention (Acute 05/12/17) Hemochromatosis (Chronic) Tongue cancer (Acute) PEG tube malfunction (Acute) Disposition (Acute) Oral thrush (Acute) Feeding by G-tube (Acute) Neurogenic bladder (Chronic) Cellulitis and abscess of neck (Acute) 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 Pt uses adult diapers for incontinence. No clots.[place] DVT (deep venous thrombosis) Surgical History S/P partial glossectomy History of tracheostomy This was temporary after aspiration when the patient was younger as a complication of her MS S/P percutaneous endoscopic gastrostomy (PEG) tube placement This is now not present have been removed patient able to swallow History of skin graft Patient states that he harvested from tendons and vessels from her right forearm and then took skin graft from her thigh to cover the defect on the right forearm as a treated her squamous cell carcinoma of her tongue with resection. Social History/Home Situation: Patient is a resident of SNF. Total assist with all transfers. Main mode of mobility in facility is through use of motorized wheelchair. Equipment Owned/DME: Motorized wheelchair Subjective: Agreeable to PT for PROM, but does report tired today. Objective: General Observation: Increased trunk lean to the R. R LE in full internal rotation at the hip, fixed at about 80 degree flexion at the hip, 120 degrees flexion at the knee, tibial internal rotation at the knee, and 20 degrees plantarflexion as well as 10 degrees inversion at the ankle. Appears tired and states so. Mental Status: A and O x3, speech slightly unintelligible due to previous tongue surgery Pain: No pain reported today ROM: Right Upper Extremity: Shoulder flexion to 80 degrees, abduction t0 80 degrees, shoulder ER to 50 degrees and elbow extension to 75 degrees with PROM. She is able to demonstrate full opening of the hand, although demonstrates significant flexor tone at rest. She also has visible atrophy of the hand intrinsics. Dexterity impaired. Left Upper Extremity: Shoulder flexion at 150 degrees. She is able to demonstrate full opening of the hand, although demonstrates significant flexor tone at rest. She also has visible atrophy of the hand intrinsics. Right Lower Extremity: R LE bent at the hips about 70-80 degrees and in full internal rotation at the hip, 120 degrees flexion at the knee but can stretch to 90 degrees with PROM. Has tibial internal rotation at the knee, and 20 degrees plantarflexion as well as 10 degrees inversion at the ankle. Left Lower Extremity: Hip and knee in neutral position and 45 degrees of plantarflexion. Hip flexion to 90 degrees with PROM. Strength: Right Upper Extremity: Grossly 2-/5 Left Upper Extremity: Grossly 3-/5 Right Lower Extremity: N/A, paraplegia. Left Lower Extremity: N/A, paraplegia Bed Mobility/Transfers: Rolling: moderate assist on either side, can use L UE to assist with rolling to R Supine to sit: Total dependence Bed to chair: Total dependence Gait: N/A. Paraplegic. Wheelchair-bound. Balance: Static Sitting: Unable Dynamic Sitting: Unable Static Standing: Unable Dynamic Standing: Unable Special Tests: Mobility Limitations Standardized Measure [facility] AM-PAC 6 clicks Basic Mobility Inpatient Short Form: Raw Score: 6 CMS Score: 100% deficit Informed Consent/Education: Patient instructed in purpose of PT consult and plan of care. 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 Admitted to [facility] for management of Sepsis, HCAP, UTI, and osteomyelitis. Awaiting down back surgery at [facility] [place] for drainage of L gluteal abscess. She has been making gains in PROM with benefit of physical therapy. She will continue to benefit from passive ROM to all limbs for pain management and prevention of further contraction. She currently demonstrated by the following impairment level findings: 1. Fixed flexion contracture right lower extremity 2. Neurogenic bladder 3. Decreased strength bilateral upper and lower 4. Decreased trunk control 5. Lymphedema of head and neck Impairments are contributing to the following functional limitations: 1. Dependent for transfers 2. Dependent for bed mobility 3. Non-ambulatory 4. Dependent for positioning of lower extremities 5. 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 Patient is admitted for management of new diagnoses of UTI, SIRS, and lactic acidosis. Examination: Functional limitations as noted above Presentation: Evolving Decision Makin high complexity Goals: 1. Improved ROM in right LE to allow for affective positioning to offload wounds - Progressing Plan of Care/Treatment Plan: 1-2x/day for proper B LE positioning, bed positioning, passive range of motion to B LE and R UE to prevent further contracture formation. DISCHARGE RECOMMENDATIONS: Return to SNF when medically cleared. TREATMENT CODE/TIME: No charge, present for treatment by SUG[facility]E GROWER and performed progress noted (15:28-15:47) Thank you for the opportunity to participate in the care of this patient. Alanna Dixon, PT, DPT, OCS [facility] [place], [place]
--- NOTE | 2023-07-20 15:50 | PT.INTREAT ---
Date of service: 07/20/23 Time of Service: 15:28 PT Notes Visit Reasons: Sepsis,Hospital-acquired pneumonia,UTI,Osteomyelit Inpatient Physical Therapy Treatment Note [facility] Date: 07/20/23 PRECAUTIONS: Fall, standard, activity as tolerated. SUBJECTIVE: Patient reports excessive fatigue today, states that she has been napping off and on all day. OBJECTIVE: Supine in bed, pillow under right leg from knee to ankle, folded bath blanket between knees. ? PAIN: Reports no pain at present time. VITALS: monitored by nursing staff. ? BED MOBILITY/TRANSFERS? Rolling L/R: dependent Supine-sit: unable? Manual Therapy ([id number]): PROM to RUE, RLE, LLE for prevention of further contracture development. ASSESSMENT:? Patient tolerates treatment well, no report of pain. Patient does note some involuntary muscle activation in bilateral lower extremities especially with PROM of ankle into dorsiflexion. PLAN: Continue treatment per plan of care until patient is medically cleared for discharge. TREATMENT CODE/TIME: 19 minutes beginning at 15:28
--- NOTE | 2023-07-20 15:55 | CMPROGNOTE_ITS ---
Date of service: 07/20/23 Time of Service: 15:56 Care Management Progress Note Progress Note Text Progress Note Text: S/O: Ethel was laying in bed sleeping when CM entered. Pt stated she was sleeping and tired today therefore CM kept visit short. Per MD,there has been discussion w/ surgical team, indicating that Ethel may not be a good candidate for surgery due to her inability to turn herself/offload pressure, and it will likely cause her a lot of pain. The antibiotic regimen that Ethel is on right now is expected to end 07/22/23. MD consulting with ID and also suggested Palliative Care discussing progression of condition and wound care concerns. A: Ethel is a 42 year old female admitted to [facility] 07/10/23 sepsis, hospital- acquired pneumonia, UTI P: Ethel will return to [facility] once medically cleared. Ethel will transport via facility vehicle. She will follow up with her PCP and discharge plan of care. CM will continue to follow SDOH(Care Management) Screening Will the Patient Participate in the Screening?: Yes Do you worry about having a steady place to live?: no In the past 12 months, have you had to go without electric, gas, oil or water in your home?: no Have you or anyone in your house had to go without enough food to eat?: no Has lack of transportation kept you from medical appointments or from doing things needed for daily living?: no Has anyone in your support network made you feel unsafe for any reason?: choose not to answer
[2023-07-20 19:22] VITALS: BP 103/71; PULSE 100; RESP 19; TEMP 36; O2SAT 97
--- NOTE | 2023-07-20 19:50 | PGE_ITS ---
Date of Service Date of service: 07/20/23 Time of Service: 19:50 Assessment and Plan Assessment and plan (1) Abscess, gluteal, left: Status: Chronic Assessment and plan: I am like I was patient remains on cefepime and metronidazole. Patient will complete antibiotic treatment on 07/22/2023. Afterwards we may consider putting her on oral suppressive therapy. I will discuss her case with infectious disease service tomorrow to come up with the discharge plan. At present time there is no plan for referral for surgical intervention. Maddy Benites from palliative care met with the patient to discuss fdc goals and help her adjust to the reality this wound is never going to heal and that the goals of care needs to move towards pain control and comfort rather than trying to heal her sacral ulcer. (2) Osteomyelitis: Status: Chronic Qualifiers: Osteomyelitis type: chronic, with draining sinus Osteomyelitis location: other site Qualified Code(s): M86.48 - Chronic osteomyelitis with draining sinus, other site (3) Sacral decubitus ulcer, stage IV: Status: Chronic (4) Multiple sclerosis: Status: Chronic Assessment and plan: patient has failed multiple therapies or been intolerant of them. (5) Uncontrolled pain: Status: Acute Assessment and plan: improving pain control since her duragesic dose was adjusted. (6) Hypothyroidism: Status: Chronic Qualifiers: Hypothyroidism type: acquired Qualified Code(s): E03.9 - Hypothyroidism, unspecified (7) DVT prophylaxis: Status: Acute Assessment and plan: On apixaban (8) Discharge planning issues: Status: Acute Assessment and plan: Full code Palliative care met w/ the patient this afternoon. I expect the patient to return to [facility] on Thursday. Subjective Subjective Interval history since last seen: Talked with Ethel this evening and explained to her that per my discussion with both Dr. Gray and Dr. Baxter that they feel that there is no surgical intervention is going to help heal up her chronic sacral decubitus ulcer. They both feel that surgical debridement and a myofascial flap would fail in the process of debridement and daily wound dressing changes will be excruciatingly painful for her and in the end of the surgical procedure which failed. They are recommending palliative care and pain control and leaving the wound open to drainage. I told Ethel that I would speak with infectious disease expert from [facility] where she was treated to see if they have any further outpatient antibiotic suppressive regimen that they would recommend. Otherwise she will complete her IV antibiotics on July 22, 2023 and will return to the [facility]. Patient does report that her pain control has improved since the Duragesic dose was increased. Objective Last Vital Signs Temp 36.0 C L 07/20/23 19:22 Pulse 100 H 07/20/23 19:22 Resp 19 07/20/23 19:22 BP 103/71 07/20/23 19:22 Pulse Ox 97 07/20/23 19:22 Laboratory Results - last 24 hr 07/20/23 06:03 WBC 3.31 L RBC 3.21 L Hgb 8.5 L Hct 28.2 L MCV 88 MCH 26.5 L MCHC 30.1 L RDW 19.9 H Plt Count 263 MPV 10.9 Immature Gran % 0.3 Neutrophils % 66.5 Lymphocytes % 18.4 Monocytes % 6.9 Eosinophils % 7.3 Basophils % 0.6 Nucleated RBC % 0.0 Absolute Neutrophils 2.20 Absolute Lymphocytes 0.61 L Absolute Monocytes 0.23 Absolute Eosinophils 0.24 Absolute Basophils 0.02 Sodium 140 Potassium 4.0 Chloride 103 Carbon Dioxide 28.2 Anion Gap 8.8 BUN 5 L Creatinine 0.5 L Est GFR (CKD-EPI 2020) 119.27 Glucose 93 Calcium 8.7 Time Spent with Patient Time Spent with Patient: 25-34 minutes Time was spent: preparing to see the patient(eg.review tests), ordering medications,tests, procedures, referring, communicating with other health home health care case manager, indepentently interpreting results, counseling the patient and care coordination
[2023-07-20] MEDS: Melatonin 3 MG TAB 9 MG PO (21:14)
[2023-07-20] MEDS: Zolpidem 6.25 MG TABCR PO (21:14)
[2023-07-20] MEDS: clonazePAM 0.5 MG TAB PO (21:14)
[2023-07-21] MEDS: CEFEPIME 2 GM in Normal Saline 100 ML IVPB ×3 (01:21→17:54)
[2023-07-21 03:26] VITALS: BP 106/71; PULSE 99; RESP 18; TEMP 36.5; O2SAT 97
[2023-07-21] MEDS: metroNIDAZOLE 500 MG/100 ML BAG 100 MG IVPB ×3 (03:27→21:08)
[2023-07-21] MEDS: Levothyroxine 25 MCG TAB PO (05:33)
[2023-07-21 07:30] VITALS: BP 104/68; PULSE 109; RESP 16; TEMP 36.7; O2SAT 91
[2023-07-21] MEDS: Magnesium Oxide 400 MG TAB PO ×2 (07:40→21:06)
[2023-07-21] MEDS: Metoclopramide 10 MG TAB PO ×4 (07:41→21:06)
[2023-07-21] MEDS: DULoxetine 30 MG CAP 60 MG PO (07:41)
[2023-07-21] MEDS: Pantoprazole 40 MG TABCR PO (07:42)
[2023-07-21] MEDS: Docusate Sodium 100 MG CAP 200 MG PO (07:42)
[2023-07-21] MEDS: Acetaminophen 500 MG TAB 1000 MG PO ×3 (07:42→21:06)
[2023-07-21] MEDS: Zinc Sulfate 220 MG TAB PO (07:42)
[2023-07-21] MEDS: Apixaban 2.5 MG TAB PO ×2 (07:43→21:06)
[2023-07-21] MEDS: Multivitamin TAB 1 TAB PO (07:43)
[2023-07-21] MEDS: Calcium Carbonate 1.5 GM TAB PO ×2 (07:43→21:07)
[2023-07-21] MEDS: Senna TAB 1 TAB PO (07:43)
[2023-07-21] MEDS: Normal Saline Flush 10 ML SYR IVP ×2 (07:44→21:07)
[2023-07-21] MEDS: Baclofen 10 MG TAB 20 MG PO ×2 (07:44→21:06)
[2023-07-21] MEDS: Polyethylene Glycol 3350 17 GM PACKET PO (07:45)
[2023-07-21] MEDS: Nystatin POWDER 60 GM JAR TP ×3 (07:45→21:07)
[2023-07-21] MEDS: HYDROmorphone 2 MG TAB PO ×3 (11:14→21:06)
--- NOTE | 2023-07-21 11:24 | PGE_ITS ---
Date of Service Date of service: 07/21/23 Time of Service: :24 Assessment and Plan Assessment and plan (1) Abscess, gluteal, left: Status: Chronic Assessment and plan: patient remains on cefepime and flagyl and per Dr. Franz recommendations, she should remain on this through 07/22/23. She had grown a resistant Proteus. I have left message for Dr. Franz to contact me to discuss any utiliyt to continue on oral suppresive regimen. Surgery has weighed in and indicated that they do not recommend surgical intervention. We will plan for her to return to [facility] tomorrow. (2) Osteomyelitis: Status: Chronic Qualifiers: Osteomyelitis type: chronic, with draining sinus Osteomyelitis location: other site Qualified Code(s): M86.48 - Chronic osteomyelitis with draining sinus, other site (3) Sacral decubitus ulcer, stage IV: Status: Chronic (4) Multiple sclerosis: Status: Chronic Assessment and plan: patient has failed multiple therapies or been intolerant of them. (5) Uncontrolled pain: Status: Acute Assessment and plan: improving pain control since her duragesic dose was adjusted. Maddy Benites has been in discussion w/ the patien regarding pain control and she will put in a prior authorization request for Relistor so the patient will have a way to treat the narcotic induced constipation. (6) Hypothyroidism: Status: Chronic Qualifiers: Hypothyroidism type: acquired Qualified Code(s): E03.9 - Hypothyroidism, unspecified (7) DVT prophylaxis: Status: Acute Assessment and plan: On apixaban (8) Discharge planning issues: Status: Acute Assessment and plan: Full code Palliative care met w/ the patient this afternoon. I expect the patient to return to [facility] on Thursday07/22/23 Subjective Subjective Interval history since last seen: I met Ethel while she was meeting w/ Maddy Benites from Palliative care. Maddy and she had a prolonged conversation about goals of care. Ethel understands that her wound is not amenable to surgery for healing as she can not get enough time off pressure to allow any flap procedure to heal. Ethel however is not prepared to make a decison on comfort measures only and has indicated that she would want to return to the hospital in the event her wounds got worse and she were to become septic. I have explained to both Maddy and Ethel that we are coming to point where her iv antibiotic treatment is about at the end point. I told her that I have left message for Dr. Haider Whiting at [facility] to call me to discuss any further use of suppressive antibiotics. Ethel says that overall her pain is reasonably controlled. Review of her use of prn hydromorphone, she is taking this about once per day since her Fentanyl patch was increased to 75 mcg. Maddy has been talking w/ Ethel about use of analgesic pump. As for her BM, Ethel usually has a BM about every 3 days. She is feeling more distended today. She has been on scheduled docusate, miralax and senna and I have ordered Relistor couple days ago. I will reorder Relistor to be given qod prn lack of BM. Exam Narrative Exam Narrative: Ethel is alert, oriented and had productive conversation w/ Maddy Abdomen: soft but distended, nontender to palpation. Objective Last Vital Signs Temp 36.7 C 07/21/23 07:30 Pulse 109 H 07/21/23 07:30 Resp 16 07/21/23 07:30 BP 104/68 07/21/23 07:30 Pulse Ox 91 L 07/21/23 07:30 Time Spent with Patient Time Spent with Patient: 25-34 minutes Time was spent: referring, communicating with other health day care assistant, counseling the patient and care coordination
[2023-07-21 11:56] VITALS: BP 103/69; PULSE 97; RESP 17; TEMP 37; O2SAT 96
--- NOTE | 2023-07-21 11:57 | W.PALPGNOTE ---
Date of service: 07/21/23 Time of Service: 11:00 Assessment and Plan Assessment and plan (1) Uncontrolled pain: Status: Acute Assessment and plan: improved w/increase of fentanyl, now at 75mcg/hr, started 2 days ago hydromorphone 2mg q4h PRN, changed from scheduled w/improved pain w/fentanyl Historically Ethel does not request PRN meds despite increased pain, we reviewed the importance of speaking up to continue to manage pain appropriately to reduce suffering - consider increase of fentanyl based on PRN need; Ethel feels stable today (2) Osteomyelitis: Status: Chronic Assessment and plan: remains on cefepime and metronidazole; - pending consult today for transition to PO abx non-healing, no surgical interventions recommended recommend oral abx for disease suppression, w/no cure Qualifiers: Osteomyelitis type: chronic, with draining sinus Osteomyelitis location: other site Qualified Code(s): M86.48 - Chronic osteomyelitis with draining sinus, other site (3) Abscess, gluteal, left: Status: Chronic Assessment and plan: s/p abscess drainage at [facility] wound open at this time (4) Sacral decubitus ulcer, stage IV: Status: Chronic Assessment and plan: non-healing, r/t MS see above (5) Subglottic stenosis: Status: Acute Assessment and plan: not candidate for intubation at [facility] (6) Constipation: Status: Acute Assessment and plan: Enema today d/t distention typical pattern q3d BMs; controlled w/Senna, Colace and Miralax PRN Relistor; consider beginning PA process for administration at [facility] PRN (7) Decreased activities of daily living (ADL): Status: Acute Assessment and plan: total care assist (8) Full code status: Status: Chronic Assessment and plan: Ethel has historically remained a full code; while we did not review CPR today, she did indicate she does want all things done to keep her alive at this time; will continue to explore preferences w/her once she returns home (9) Wheelchair bound: Status: Chronic (10) FDC resident: Status: Acute Assessment and plan: since 2017 been at [facility] (11) Palliative care patient: Status: Acute Assessment and plan: PC will continue to follow Ethel through discharge to [facility] f/u outpatient at soonest available, yaquelin for pain and other sxs management (nausea, constipation) (12) Multiple sclerosis: Status: Chronic Assessment and plan: no additional medication therapies available; contracture release procedure in [place] w/no acute f/u, [facility] managing Ethel is at the end stage of her disease (13) Advance care planning: Status: Acute Assessment and plan: Reviewed current care plan, goals to return to [facility] and hopefully avoid repeat hospitalizations, however at time of visit she would want to return to hospital if she were too sick for treatment at [facility] - she is hesitant to change current POC d/t wanting to protect her daughters from her , which she is aware is closer; - she would want oral abx vs none, due to desire to sustain life - she does not want a pain pump at this time, increased fears of addiction Subjective Subjective Interval history since last seen: Ethel remains hospitalized at [facility] r/t sepsis - IV abx to be completed tomorrow 07/22/23; with plan to transition to oral abx to suppress sxs as able; ID consult from [place] pending Ethel was transferred to [facility] for day procedure for an abscess drainage on 07/[address] [facility] and consult at [facility] have confirmed this osteomyelitis and wound will likely never heal, certainly not w/o extensive surgical intervention and even then that will likely fail; additionally because she has full sensation the risk and concern for dramatically increasing her pain and suffering as a result of a surgery, leads them to not recommend procedures; rather a focus on palliative care Pain: fentanyl patch increased to 75mcg 2 days ago w/good effect on pain, she only required 1 PRN dose of hydromorphone yesterday, and so far today has had 1 dose s/p getting cleaned up; she is having increased MS spasms today, by end of visit reports they are calmer now - hydromorphone dose approx 20 mins prior Constipation: while a lifelong issue for Ethel, has had increased sxs since hospitalization, presumably related to increased opioids; typical regimen Senna, Colace, Miralax works, requiring PRN dose of Relistor w/good effect; is having some increased distention in abdomen today, will have enema later today; denies abdominal pain or discomfort Wound/Abx: Ethel clearly articulates non-healing wound, need for abx ongoing to treat symptoms and return of sepsis; while she does not want to be sick on abx indefinitely, she would like to have them to hopefully reduce sxs and need for returning to hospital; she reports abx make her feel sick, nausea and abd discomfort as primary sxs, unable to recall names of abx causing increased sxs; would rather have abx than not; - PRIYANKA drain removed today, limited to scant drainage noted; wound remains open, w/hope that it does remain open to allow for drainage as needed from wound; Carrie: continues 1:1 supervised feeds, no issues w/choking/gaging; carrie been reduced lately, sometimes eating only 25% up to eating all of one meal; carrie comes and goes, nausea and fatigue impacting this the most; she is not worried about this at this time ADL: total care assist; Ethel has always been stoic regarding her need for assistance; she misses having her hair washed in the shower at [facility] and is looking forward to returning there Social: she is bummed that she now has a roommate at [facility], but it is what it is; her daughter Amada and aunt Jacy visited her yesterday ACP: Ethel would want to prioritize returning to [facility], would want abx, and while she doesn't want to return to the hospital, if she were so sick that [facility] couldn't treat her there would want transfer to [facility] for IV abx/treatment for sepsis; - she is concerned w/protecting her children from the inevitability of her , and would like to continue LST to ensure their protection. she has not told them that this wound is never going away, however she does connect that her aunt or mother have likely filled them in - worried about becoming addicted to pain medications, family history of BRICE Exam Narrative Exam Narrative: General: 42 y/o F, lying in hospital bed w/HOB elevated; cooperative, NAD; initially having hygiene care w/occasional grimace d/t repositioning, resolved at rest HEENT: hearing grossly WNL, normocephalic, atraumatic Resp: even and unlabored, speaks full sentences w/no SOB, no cough/no audible wheeze Skin: warm, dry GI: abd distended; observed palpation by hospitalist, non-tender, soft Neuro: A&Ox3; LUE most mobility, RUE no control proximal to elbow; BLE no movement Psych: speech quiet, answers questions appropriately, engages, insight/judgment limited Objective Last Vital Signs Temp 98.6 F 07/21/23 11:56 Pulse 97 H 07/21/23 11:56 Resp 17 07/21/23 11:56 BP 103/69 07/21/23 11:56 Pulse Ox 96 07/21/23 11:56
[2023-07-21 12:33] LABS: C-Reactive Protein 1.41 mg/dL (<or=0.5)
[2023-07-21] MEDS: Bisacodyl 10 MG SUPP PR (13:02)
[2023-07-21] MEDS: Milk of Magnesia 30 ML CUP PO (13:02)
[2023-07-21] MEDS: Methylnaltrexone 12 MG/0.6 ML VIAL SC (13:02)
--- NOTE | 2023-07-21 13:22 | CMPROGNOTE_ITS ---
Date of service: 07/21/23 Time of Service: 13:23 Care Management Progress Note Progress Note Text Progress Note Text: S/O: Ethel was awake and engaging in conversation. She described sleeping on her hand through the night and it feeling not feeling good today. CM and Ethel discussed her wanting to go home and tomorrow maybe being able to. Ethel said that she had a visit from her aunt and her oldest daughter where they brought some things from home like her music player with a few CDs and the few movies for her to watch. Ethel said she watched some good movies last night on the TV in her room. CM discussed that Ethel did not get a shower over the weekend and would still like one. Pt described nursing working with her on having a BM and she does this when home on shower days; CM let charge nurse know this information who said would let [facility] nurse know. CM spoke to [facility] nurse who stated that she didnt feel comfortable providing her a shower do to her wounds and infection. A: Ethel is a 42 year old female admitted to [facility] 07/10/23 sepsis, hospital- acquired pneumonia, UTI P: Ethel will return to [facility] once medically cleared. Ethel will transport via facility vehicle. She will follow up with her PCP and discharge plan of care. CM will continue to follow SDOH(Care Management) Screening Will the Patient Participate in the Screening?: Yes Do you worry about having a steady place to live?: no In the past 12 months, have you had to go without electric, gas, oil or water in your home?: no Have you or anyone in your house had to go without enough food to eat?: no Has lack of transportation kept you from medical appointments or from doing things needed for daily living?: no Has anyone in your support network made you feel unsafe for any reason?: choose not to answer
[2023-07-21 17:20] VITALS: BP 98/66; PULSE 108; RESP 18; TEMP 36.7; O2SAT 97
--- NOTE | 2023-07-21 17:41 | CHAPLAIN ---
Ethel and I know each other from previous admissions. At her last admission, she was transferred to a hospital in [place] for surgery and then [facility]. Today Ethel she's waiting for an SENIOR BI ARCHITECT to wash her hair and really looking forward to that. Her daughter and aunt visited yesterday. Ethel met with Maddy Benites today from , they talked about the fact that her wound on her bottom will likely not heal and she is not a good candidate for surgery on it. She said her bottom is very sore because she can't get off it. She would like to stay at [facility] if possible and not keep coming back to [facility], however she does not sound like she wants to have just comfort measures. I will continue to visit.
[2023-07-21] MEDS: Ondansetron 4 MG/2 ML VIAL IVP (18:04)
[2023-07-21] MEDS: Melatonin 3 MG TAB 9 MG PO (21:06)
[2023-07-21] MEDS: Zolpidem 6.25 MG TABCR PO (21:06)
[2023-07-21] MEDS: clonazePAM 0.5 MG TAB PO (21:06)
[2023-07-21 21:18] VITALS: BP 111/70; PULSE 107; RESP 18; TEMP 36.4; O2SAT 96
[2023-07-22] MEDS: HYDROmorphone 2 MG TAB PO ×2 (01:11→07:37)
[2023-07-22] MEDS: CEFEPIME 2 GM in Normal Saline 100 ML IVPB (01:11)
[2023-07-22] MEDS: metroNIDAZOLE 500 MG/100 ML BAG 100 MG IVPB (03:41)
[2023-07-22 05:05] VITALS: BP 111/65; PULSE 114; RESP 18; TEMP 36.2; O2SAT 99
[2023-07-22] MEDS: Levothyroxine 25 MCG TAB PO (05:06)
[2023-07-22 07:28] VITALS: BP 114/77; PULSE 118; RESP 16; TEMP 36.6; O2SAT 94
[2023-07-22] MEDS: Calcium Carbonate 1.5 GM TAB PO (07:37)
[2023-07-22] MEDS: Multivitamin TAB 1 TAB PO (07:37)
[2023-07-22] MEDS: Zinc Sulfate 220 MG TAB PO (07:37)
[2023-07-22] MEDS: Baclofen 10 MG TAB 20 MG PO (07:37)
[2023-07-22] MEDS: Apixaban 2.5 MG TAB PO (07:37)
[2023-07-22] MEDS: Normal Saline Flush 10 ML SYR IVP (07:37)
[2023-07-22] MEDS: Acetaminophen 500 MG TAB 1000 MG PO ×2 (07:37→13:46)
[2023-07-22] MEDS: DULoxetine 30 MG CAP 60 MG PO (07:37)
[2023-07-22] MEDS: Pantoprazole 40 MG TABCR PO (07:38)
[2023-07-22] MEDS: Metoclopramide 10 MG TAB PO ×2 (07:38→11:35)
[2023-07-22] MEDS: Magnesium Oxide 400 MG TAB PO (07:38)
[2023-07-22] MEDS: Ondansetron O.D.T. 4 MG TABEF PO ×2 (07:38→13:46)
[2023-07-22] MEDS: Nystatin POWDER 60 GM JAR TP (08:30)
--- NOTE | 2023-07-22 09:00 | OTTR_ITS ---
Occupational Therapy Notes Occupational Therapy Inpatient Treatment Note Date: 07/22/23 PRECAUTIONS: Fall, Standard, full SUBJECTIVE: Pt states that she is going home today and is waiting for someone to help her pack everything up. OBJECTIVE: PAIN:no specific c/o pain, she does mention that she has pain in her back but does not rate this with OT. Manual Therapy [id number]: OT performed PROM to pts digits into flexion and extension as well as wrist. Pt has hard end feel at end ranges but tolerated this well. With hand in the neutral position, OT performed AP mobs to pts digits and wrist for facilitation of AROM and to increase hand width to be able to hold the tablet in her hand (I). OT performed positional release techniques up throughout the (R) UE and into the forearm/bicep area for release. Pt tolerated this well with no increased pain behaviors noted. OT educated pt on hand positioning which she notes that she tries but her hand dexterity is limited. PLAN: OT will continue plan per initial evaluation, if pt does leave today she will be considered discharged at that time. TREATMENT CODES/TIME: 13056, 20 minutes Nadine Jennings OTR/[facility] [place], [place]
[2023-07-22 11:27] VITALS: BP 112/77; PULSE 109; RESP 16; TEMP 36.8; O2SAT 98
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
--- NOTE | 2023-07-22 14:04 | PDOC.CMDIS ---
Date of service: 07/22/23 Time of Service: 14:04 LACE Index Scoring Tool Questions: Length of Stay (in days): 7 - 13 Was the patient admitted via the E.D.?: Yes E.D. Visits: 3 Answers: Total Score: 11 Risk of Readmission: High Risk Care Management Discharge Plan Reason for Hospitalization: sepsis, hospital-acquired pneumonia, UTI Discharge Plan: Ethel will return to [facility] via EMS coordinated CM. She will follow up with facility providers, Palliative Care and plan of care with new antibiotic orders omnicef (cefdinir) 300 mg po bid and flagyl (metronidazole) 500 mg bid per MD. Patient/Family Education Needs: Review discharge instructions, activity, limitations, follow up plan and discuss Ask Me Three SDOH Health Related Social Needs: No Data to Display
== END 2023-07-22 14:09 | disposition skilled nursing facility (03) | DRG 871 ==
LOC: ER 18:36 → MS 20:22
PROVIDERS: Emergency Medicine; Family Medicine; Internal Medicine; Surgery; Admitting Provider Family Medicine; Emergency Provider Emergency Medicine; PCP Family Medicine; Visit Provider Family Medicine
DX: A41.52 Sepsis due to Pseudomonas (principal); J18.9 Pneumonia, unspecified organism; L89.154 Pressure ulcer of sacral region, stage 4; D68.2 Hereditary deficiency of other clotting factors; M86.48 Chronic osteomyelitis with draining sinus, other site; G82.20 Paraplegia, unspecified; G35 Multiple sclerosis; E03.9 Hypothyroidism, unspecified; G47.33 Obstructive sleep apnea (adult) (pediatric); J38.6 Stenosis of larynx; K59.00 Constipation, unspecified; G89.29 Other chronic pain; R47.1 Dysarthria and anarthria; Z99.3 Dependence on wheelchair; E11.40 Type 2 diabetes mellitus with diabetic neuropathy, unspecified; N31.9 Neuromuscular dysfunction of bladder, unspecified; E11.65 Type 2 diabetes mellitus with hyperglycemia; R33.9 Retention of urine, unspecified; R32 Unspecified urinary incontinence; E83.119 Hemochromatosis, unspecified; Z93.1 Gastrostomy status; F32.A Depression, unspecified; Z79.01 Long term (current) use of anticoagulants; L27.0 Generalized skin eruption due to drugs and medicaments taken internally; T36.8X5A Adverse effect of other systemic antibiotics, initial encounter; R13.10 Dysphagia, unspecified; Y95 Nosocomial condition
CPT/HCPCS: 00123; 10030; 36415; 71275; 74177; 80048; 80053; 84145; 85027; 87040; 87637; 87641; 92610; 93005; 96365; 96366; 96367; 96368; 97110; 97140; 97163; 97166; 97530; 99223; 99231; 99285; 71045; 80202; 81003; 81015; 83605; 83735; 83880; 84443; 84484; 85025; 85610; 85730; 86140; 87086; 93010; 94760; 99232; 99233; 99239; A0425; A0428; J0131; J0692; J0780; J1200; J1836; J2185; J2212; J2405; J3372; J3475; J3480; J3490

== ENCOUNTER 2023-08-03 13:08 | Emergency (ER) | payer MEDICARE, MEDICAID, SELFPAY ==
[2023-08-03] VITALS (24 sets, daily range): BP systolic 103–137; BP diastolic 66–97; PULSE 0–123; RESP 13–16; TEMP 36.6–37; O2SAT 92–97
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
[2023-08-03] MEDS: Droperidol 5 MG/2 ML VIAL 2.5 MG IM (15:02)
[2023-08-03 15:12] LABS: Bilirubin Small (Negative); Blood Large (Negative); Clarity Cloudy (Clear); Glucose Negative (Negative); Ketones 40 mg/dL (Negative); Leukocyte Esterase Small (Negative); Nitrite Positive (Negative); Specific Gravity >= 1.030 (1.005-1.025); Urobilinogen 0.2 mg/dL (Up to 0.2); pH 6.5 (5-8)
[2023-08-03 15:20] LABS: Bacteria Moderate HPF (Negative); C & S Indicated? Yes; Casts Negative LPF (Negative); Crystals Negative HPF (Negative); Epithelial Cells Few HPF (Negative); Mucus Trace (Negative); RBC 20-50 HPF (0-2)
[2023-08-03 15:54] LABS: Abs Immature Grans 0.01 10^3/uL (0.0-0.06); Absolute Basophil Count 0.04 10^3/uL (0.0-0.2); Absolute Eosinophil Count 0.18 10^3/uL (0.0-0.7); Absolute Lymphocyte Count 0.72 10^3/uL (1.2-3.4); Absolute Monocyte Count 0.24 10^3/uL (0.1-0.8); Absolute Neutrophil Count 1.92 10^3/uL (1.2-6.7); Basophils % 1.3; Eosinophils % 5.8; HCT 34.1 % (36.0-46.0); HGB 10.2 g/dL (11.2-15.7); Immature Grans % 0.3; Lymphocytes % 23.2; MCH 26.4 pg (27.0-33.0); MCHC 29.9 % (32.0-36.0); MCV 88 fL (80-95); MPV 10.7 fL (8.0-11.0); Monocytes % 7.7; Neutrophils % 61.7; Platelet Count 226 10^3/uL (130-400); RBC 3.86 10^6/uL (3.93-5.22); RDW-SD 60.2 fL; WBC 3.11 10^3/uL (4.4-10.8)
[2023-08-03] MEDS: Sulfameth/Trimeth DS TAB 1 TAB PO (15:55)
[2023-08-03 16:20] LABS: ALT 11 U/L (14-59); AST 22 U/L (15-37); Albumin 2.5 g/dL (3.4-5.0); Alkaline Phosphatase 117 U/L (46-116); Anion Gap 7.7 mmol/L (3-11); BUN 10 mg/dL (7-18); Bilirubin, Total 0.4 mg/dL (0.2-1.0); CO2 32.3 mmol/L (21.0-32.0); CREATININE 0.5 mg/dL (0.55-1.02); Calcium 9.3 mg/dL (8.5-10.1); Chloride 100 mmol/L (98-107); Estimated GFR 119.27 (mL/min/1.73m2); Glucose 143 mg/dL (74-106); Lipase 48 U/L (16-77); Magnesium 1.9 mg/dL (1.8-2.4); Potassium 3.3 mmol/L (3.5-5.1); Sodium 140 mmol/L (136-145); Total Protein 8.6 g/dL (6.4-8.2)
--- NOTE | 2023-08-03 16:56 | ED.PROG_ITS ---
Date of service: 08/03/23 Time of Service: 16:57 Medical Decision Making Rest comfortably no acute distress feeling better after medications. Labs largely unremarkable. Heart rate improving now 107 on bedside monitor. Hemodynamically stable. Nontoxic. Started on Bactrim for UTI, past urine cultures reviewed has grown out Klebsiella susceptible to Bactrim. Will continue as an outpatient. Passed p.o. challenge keeping down fluid orally. Quality:[facility] Health Related Social Needs: No Data to Display Sign Out Sign Out Data: Sign Out Comment: 42-year-old female with spastic paraplegia secondary to MS, presents with vomiting for several days. Final ED disposition pending CMP. Patient has difficult IV access and despite several tries, is now refusing any additional attempts for IV access. She has received IM droperidol and is being encouraged to orally hydrate. Her Melendez was exchanged and she does have an infection. A dose of Bactrim was ordered and if discharged, she should get Bactrim prescription which has been sent to the pharmacy already. If there is significant electrolyte derangement or acute renal failure, the patient will need IV access and would likely benefit from the PICC team. Last updated by Marialuisa Treviño MD at 08/03/23 16:21 Discharge Plan Disposition Patient Disposition: Home Condition: Improving Discharge Details Clinical Impression: UTI (urinary tract infection), Vomiting Primary Care Provider: Steve Dudley ED Provider: Dutch Mora Home Meds and New Rx's Prescriptions: New sulfamethoxazole-trimethoprim [Bactrim DS] 800-160 mg tablet 1 tab PO Q12H 7 Days Qty: 14 0RF sulfamethoxazole-trimethoprim [Bactrim DS] 800-160 mg tablet 1 tab PO BID 5 Days Qty: 10 0RF No Action levothyroxine 25 mcg tablet 25 mcg PO DAILY melatonin 5 mg capsule 10 mg PO HS psyllium Powder 5 tsp PO Q12H PRN (Reason: Constipation) Rx Instructions: mix into at least 8 oz of water or juice before administering sennosides [senna] 8.6 mg tablet See Rx Instructions PO DAILY Qty: 30 1RF Rx Instructions: give one tablet Senna once daily scheduled if constipation symptoms persist give 1 tablet twice daily scheduled guaifenesin 200 mg/5 mL liquid 200 mg PO Q4H PRN (Reason: cough) Qty: 118 0RF metoclopramide HCl [Reglan] 10 mg tablet 10 mg PO Q4H PRN Qty: 60 0RF Rx Instructions: administer 1 tab 30 minutes before meals scheduled BID may use 2 additional doses with q4h PRN dosing schedule magnesium hydroxide [Milk of Magnesia] 400 MG/5 ML suspension 30 ml PO DAILY PRN docusate sodium 100 mg capsule 200 mg PO BID ibuprofen 200 mg tablet 400 mg PO Q8H PRN PRN (Reason: fever or pain) apixaban 2.5 mg Tablet 2.5 mg PO BID ondansetron HCl 4 mg tablet 4 mg PO Q6H PRN (Reason: Nausea) duloxetine 60 mg capsule,delayed release(DR/EC) 60 mg PO DAILY zinc sulfate 50 mg zinc (220 mg) tablet 50 mg PO DAILY cetirizine [Children's Cetirizine] 5 mg tablet,chewable 5 mg PO DAILY PRN baclofen 20 mg tablet 20 mg PO BID fluoride (sodium) [PreviDent 5000 Dry Mouth] 1.1 % paste 1 applic dental DAILY Rx Instructions: brush teeth using soft brush for at least 1 min ; rinse mouth thoroughly and spit out fentanyl 75 mcg/hr patch 72 hour 1 patch transdermal Q72H Qty: 5 0RF Relistor 12 mg/0.6 mL solution 12 mg subcut Q OTHER DAY PRNQty: 0.6 0RF Rx Instructions: give relistor 12 mg SC every other day prn lack of bowel movement cefdinir 300 mg capsule 300 mg PO BID Qty: 60 0RF pantoprazole [Protonix] [address] for susp in packet 40 mg PO DAILY Qty: 30 0RF zolpidem [Ambien CR] 6.25 mg tablet,ext release multiphase 6.25 mg PO QHS PRNQty: 7 0RF metronidazole 500 mg tablet 500 mg PO BID Qty: 0 0RF hydromorphone 2 mg tablet 2 mg PO Q4H PRN MDD 16mg PRN (Reason: pain) Qty: 30 0RF promethazine 25 mg tablet 25 mg PO Q6H PRN calcium polycarbophil [Fiber (calcium polycarbophil)] 625 mg tablet 1,250 mg PO DAILY acetaminophen [Tylenol] 325 MG tablet 650 mg PO Q6H PRN PRN methenamine hippurate [Hiprex] 1 gram Tablet 1 g PO BID polyethylene glycol 3350 [Miralax] 17 gram powder in packet 17 g PO DAILY PRN (Reason: constipation) Enema 19-7 gram/118 mL enema 118 ml [place] DAILY PRN (Reason: constipation) Rx Instructions: Give 1 application rectally if Milk of Magnesia and suppository are ineffective to produce BM multivitamin [Daily Multi-Vitamin] Tablet 1 tab PO DAILY calcium carbonate 600 mg calcium (1,500 mg) Tablet 600 mg PO BID clonazepam 0.5 mg tablet 0.5 mg PO DAILY Discharge Instructions Instructions: Urinary Tract Infection in Women (ED)
== END 2023-08-03 17:29 | disposition home or self-care (01) ==
PROVIDERS: Emergency Medicine; Emergency Provider Emergency Medicine; PCP Family Medicine
DX: R11.10 Vomiting, unspecified (principal); N39.0 Urinary tract infection, site not specified; G35 Multiple sclerosis
CPT/HCPCS: 00123; 36415; 51702; 80053; 83690; 96372; 99284; 81003; 81015; 83735; 85025; 87086; J1790

== ENCOUNTER 2023-08-09 09:23 | Emergency (ER) | payer MEDICARE, MEDICAID, SELFPAY ==
--- NOTE | 2023-08-09 09:15 | RT.EKG_ITS ---
APPROVED REPORT Exam: Resting ECG Reason for Exam: sob Patient Location: E HR:147 bpm ECG Measurements Heart Rate 147 AXIS ID 112 P 71 QRSd 82 QRS 63 QT 314 T -57 QTc 492 Conclusion Sinus tachycardia...rate> 99 Probable left atrial enlargement...P >50mS, <-0.10mV V1 Probable anterior infarct, age indeterminate...Q >35mS, T neg, V2-V5 sinus tachycardia, normal axis, normal intervals, non ischemic
[2023-08-09 09:26] VITALS: BP 190/114; PULSE 142; RESP 24; O2SAT 97
--- NOTE | 2023-08-09 09:30 | DI.RAD_ITS ---
Exam(s) XR PORTABLE CHEST AP EXAM: XR PORTABLE CHEST AP CLINICAL HISTORY: body aches, sob TECHNIQUE: 2D digital imaging was performed. COMPARISON: CR XR PORTABLE CHEST AP from 07/16/2023 FINDINGS: Exam is limited by the patient's hand overlying the right chest. The lungs are suboptimally inflated . LUNGS: Grossly clear. No pleural abnormality seen. HEART: Normal size. AORTA: Normal diameter. BONES: Unremarkable for age. Soft tissues: Unremarkable. IMPRESSION: No acute findings. DATA REPOSITORY: RADIATION DOSE DELIVERED:
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
[2023-08-09] MEDS: ACETAMINOPHEN 1,000 MG/100 ML BTL 400 MG IVPB (09:43)
[2023-08-09 09:44] LABS: Abs Immature Grans 0.01 10^3/uL (0.0-0.06); Absolute Basophil Count 0.03 10^3/uL (0.0-0.2); Absolute Eosinophil Count 0.26 10^3/uL (0.0-0.7); Absolute Lymphocyte Count 1.03 10^3/uL (1.2-3.4); Absolute Monocyte Count 0.18 10^3/uL (0.1-0.8); Absolute Neutrophil Count 2.57 10^3/uL (1.2-6.7); Basophils % 0.7; Eosinophils % 6.4; HCT 34.9 % (36.0-46.0); HGB 10.7 g/dL (11.2-15.7); Immature Grans % 0.2; Lymphocytes % 25.2; MCH 26.6 pg (27.0-33.0); MCHC 30.7 % (32.0-36.0); MCV 87 fL (80-95); MPV 10.4 fL (8.0-11.0); Monocytes % 4.4; Neutrophils % 63.1; Platelet Count 306 10^3/uL (130-400); RBC 4.03 10^6/uL (3.93-5.22); RDW 18.9 % (11.7-14.6); RDW-SD 59.2 fL; WBC 4.08 10^3/uL (4.4-10.8)
[2023-08-09] MEDS: Normal Saline 1,000 ML 1000 ML IV (09:44)
[2023-08-09 10:05] LABS: Bilirubin Small (Negative); Blood Large (Negative); Clarity Cloudy (Clear); Glucose Negative (Negative); Ketones 15 mg/dL (Negative); Leukocyte Esterase Small (Negative); Nitrite Negative (Negative); Specific Gravity >= 1.030 (1.005-1.025); Urobilinogen 0.2 mg/dL (Up to 0.2)
[2023-08-09 10:20] LABS: Bacteria Few HPF (Negative); Crystals Many Calcium Oxalate HPF (Negative); Epithelial Cells Many HPF (Negative); Other Cells Moderate Yeast (Negative); RBC >50 HPF (0-2); WBC >50 HPF (0-5)
[2023-08-09 10:21] LABS: C & S Indicated? No/Sq. Contamination; Casts Negative LPF (Negative); Mucus Trace (Negative)
[2023-08-09 10:24] LABS: ALT 14 U/L (14-59); AST 25 U/L (15-37); Albumin 2.5 g/dL (3.4-5.0); Alkaline Phosphatase 118 U/L (46-116); Anion Gap 8.2 mmol/L (3-11); BUN 7 mg/dL (7-18); Bilirubin, Total 0.3 mg/dL (0.2-1.0); CO2 26.8 mmol/L (21.0-32.0); CREATININE 0.7 mg/dL (0.55-1.02); Calcium 9.3 mg/dL (8.5-10.1); Chloride 102 mmol/L (98-107); Estimated GFR 109.98 (mL/min/1.73m2); Glucose 127 mg/dL (74-106); Potassium 4.2 mmol/L (3.5-5.1); Sodium 137 mmol/L (136-145); Total Protein 8.1 g/dL (6.4-8.2)
[2023-08-09 10:27] VITALS: BP 190/114; PULSE 142; RESP 24; TEMP 36.6; O2SAT 97
[2023-08-09 10:41] LABS: COVID-19 PCR Negative (Negative); Influenza A PCR Negative (Negative); Influenza B PCR Negative (Negative); RSV PCR Negative (Negative)
[2023-08-09 10:48] LABS: Source Nasopharynx
--- NOTE | 2023-08-09 11:30 | DI.VRAD_ITS ---
PROCEDURE INFORMATION: Exam: XR Chest Exam date and time: 08/09/2023 11:03 AM Age: 42 years old Clinical indication: Other: Body aches, SOB TECHNIQUE: Imaging protocol: Radiologic exam of the chest. Views: 1 view. COMPARISON: CR XR PORTABLE CHEST AP 07/16/2023 8:18 AM FINDINGS: Lungs: The right upper extremity is covering the right mid lung zone, limiting its assessment. Poor inspiratory effort. No gross consolidation. Pleural spaces: Unremarkable. No pleural effusion. No pneumothorax. Heart/Mediastinum: Unremarkable. No cardiomegaly. Bones/joints: Moderate degenerative disease of bilateral acromioclavicular joints. Mild curvature of the lumbar spine convex to the left. IMPRESSION: No gross consolidation. Dictated and Authenticated by: Juve Hazel MD. Ordering:ARABELLA Judd MD
== END 2023-08-09 14:28 | disposition home or self-care (01) ==
PROVIDERS: Emergency Provider Emergency Medicine; PCP Family Medicine
DX: R06.02 Shortness of breath (principal); M79.10 Myalgia, unspecified site; G35 Multiple sclerosis; R53.2 Functional quadriplegia; E11.40 Type 2 diabetes mellitus with diabetic neuropathy, unspecified; Z85.810 Personal history of malignant neoplasm of tongue; Z86.718 Personal history of other venous thrombosis and embolism; Z96.0 Presence of urogenital implants; Z93.0 Tracheostomy status; Z90.49 Acquired absence of other specified parts of digestive tract; Z11.52 Encounter for screening for COVID-19; Z79.01 Long term (current) use of anticoagulants
CPT/HCPCS: 36415; 80053; 82962; 87040; 87637; 93005; 96361; 96374; 99285; 71045; 81003; 81015; 85025; 93010; 99284; J0131

== ENCOUNTER → 2023-11-04 10:39 | Outpatient (BNVA) | payer MEDICARE, MEDICAID, SELFPAY | PROVIDERS: PCP Family Medicine; Visit Provider Psychiatry & Neurology Neurology | DX: G35 Multiple sclerosis (principal); M62.838 Other muscle spasm; E11.40 Type 2 diabetes mellitus with diabetic neuropathy, unspecified; G82.20 Paraplegia, unspecified | CPT/HCPCS: 99215 ==

== ENCOUNTER 2023-11-18 18:16 | Outpatient (REF) | payer MEDICARE, MEDICAID, SELFPAY ==
[2023-11-18 18:19] LABS: TSH 3.75 uIU/Ml (0.36-3.74)
== END 2023-11-18 18:17 | disposition home or self-care (01) ==
LOC: LBN 18:16
PROVIDERS: PCP Family Medicine; Visit Provider Nurse Practitioner Family
DX: E03.9 Hypothyroidism, unspecified (principal)
CPT/HCPCS: 84443

== ENCOUNTER 2024-01-12 20:02 | Outpatient (REF) | payer MEDICARE, MEDICAID, SELFPAY ==
[2024-01-12 14:15] LABS: TSH 1.54 uIU/Ml (0.36-3.74)
== END 2024-01-12 20:03 | disposition home or self-care (01) ==
LOC: LBN 20:02
PROVIDERS: PCP Family Medicine; Visit Provider Family Medicine
DX: E03.9 Hypothyroidism, unspecified (principal)
CPT/HCPCS: 84443

== ENCOUNTER 2024-03-08 00:38 | Outpatient (REF) | payer MEDICARE, MEDICAID, SELFPAY ==
[2024-03-10 08:48] LABS: Clarity Cloudy (Clear); Glucose Negative (Negative); Ketones Negative (Negative); Leukocyte Esterase Small (Negative); Nitrite Negative (Negative); Specific Gravity 1.025 (1.005-1.025); Urobilinogen 0.2 mg/dL (Up to 0.2)
[2024-03-10 08:49] LABS: Bacteria Few HPF (Negative); Bilirubin Negative (Negative); Blood Large (Negative); C & S Indicated? C&S Done As Ordered; Casts Negative LPF (Negative); Crystals Negative HPF (Negative); Epithelial Cells Few HPF (Negative); Mucus Trace (Negative); RBC Negative HPF (0-2); WBC >50 HPF (0-5)
== END 2024-03-08 00:39 | disposition home or self-care (01) ==
LOC: LBN 00:38
PROVIDERS: PCP Family Medicine; Visit Provider Nurse Practitioner Adult Health
DX: N39.0 Urinary tract infection, site not specified (principal)
CPT/HCPCS: 87077; 81003; 81015; 87086; 87186

== ENCOUNTER 2024-03-10 16:37 | Outpatient (REF) | payer MEDICARE, MEDICAID, SELFPAY ==
[2024-03-10 15:28] LABS: Bilirubin Negative (Negative); Blood Trace-intact (Negative); Clarity Cloudy (Clear); Glucose Negative (Negative); Ketones Negative (Negative); Leukocyte Esterase Moderate (Negative); Nitrite Negative (Negative); Specific Gravity 1.025 (1.005-1.025); Urobilinogen 0.2 mg/dL (Up to 0.2)
[2024-03-10 15:50] LABS: Bacteria Moderate HPF (Negative); Crystals Negative HPF (Negative); Epithelial Cells Few HPF (Negative); RBC Negative HPF (0-2); WBC >50 HPF (0-5)
[2024-03-10 15:51] LABS: C & S Indicated? C&S Done As Ordered; Casts Negative LPF (Negative); Mucus Trace (Negative)
== END 2024-03-10 16:38 | disposition home or self-care (01) ==
LOC: LBN 16:37
PROVIDERS: PCP Family Medicine; Visit Provider Family Medicine
DX: R82.90 Unspecified abnormal findings in urine (principal)
CPT/HCPCS: 81003; 81015; 87086

== ENCOUNTER 2024-03-16 14:50 | Outpatient (REF) | payer MEDICARE, MEDICAID, SELFPAY ==
[2024-03-16 10:04] LABS: Lactate 0.7 mmol/L (0.6-1.4)
[2024-03-16 10:05] LABS: Abs Immature Grans 0.01 10^3/uL (0.0-0.06); Absolute Basophil Count 0.01 10^3/uL (0.0-0.2); Absolute Eosinophil Count 0.29 10^3/uL (0.0-0.7); Absolute Lymphocyte Count 0.67 10^3/uL (1.2-3.4); Absolute Monocyte Count 0.24 10^3/uL (0.1-0.8); Basophils % 0.3 %; Eosinophils % 7.6 %; HCT 33.5 % (36.0-46.0); HGB 10.5 g/dL (11.2-15.7); Immature Grans % 0.3 %; Lymphocytes % 17.5 %; MCH 29.5 pg (27.0-33.0); MCHC 31.3 % (32.0-36.0); MCV 94 fL (80-95); MPV 10.4 fL (8.0-11.0); Monocytes % 6.3 %; Platelet Count 222 10^3/uL (130-400); RBC 3.56 10^6/uL (3.93-5.22); RDW 15.8 % (11.7-14.6); RDW-SD 54.7 fL; WBC 3.83 10^3/uL (4.4-10.8)
[2024-03-16 10:18] LABS: ALT 24 U/L (14-59); AST 25 U/L (15-37); Alkaline Phosphatase 145 U/L (46-116); BUN 11 mg/dL (7-18); Bilirubin, Total 0.32 mg/dL (0.2-1.0); C-Reactive Protein 4.81 mg/dL (<or=0.5); CREATININE 0.6 mg/dL (0.55-1.02); Calcium 9.5 mg/dL (8.5-10.1); Estimated GFR 113.44 (mL/min/1.73m2); Glucose 93 mg/dL (74-106); Total Protein 7.3 g/dL (6.4-8.2)
[2024-03-16 10:23] LABS: Albumin 2.4 g/dL (3.4-5.0); Chloride 102 mmol/L (98-107); Potassium 4.2 mmol/L (3.5-5.1); Sodium 140 mmol/L (136-145)
== END 2024-03-16 14:51 | disposition home or self-care (01) ==
LOC: LBN 14:50
PROVIDERS: PCP Family Medicine; Visit Provider Nurse Practitioner Adult Health
DX: M62.81 Muscle weakness (generalized) (principal)
CPT/HCPCS: 80053; 83605; 85025; 86140